=== PATIENT | female | born 1945 | race Caucasian/White ===

== ENCOUNTER 2023-08-12 18:09 | Inpatient (IN) | payer MEDICARE, OTHER, SELFPAY ==
[2023-08-12 15:32] VITALS: BP 145/101
[2023-08-12 15:55] LABS: % Basophils 1.8 % (0-2); % Eosinophils 3.7 % (0-6); % Immature Granulocytes 0.5 % (0-0.5); % Lymphocytes 20.8 % (20.5-51.1); % Monocytes 13.9 % (1.7-9.3); % Neutrophils 59.3 % (42.2-75.2); Absolute Basophils 0.1 10^3/uL (0-0.2); Absolute Eosinophils 0.1 10^3/uL (0-0.7); Absolute Lymphocytes 0.8 10^3/uL (1.2-3.4); Absolute Monocytes 0.5 10^3/uL (0.1-0.6); Absolute Neutrophils 2.3 10^3/uL (1.4-6.5); Hematocrit 37.1 % (37.0-47.0); Hemoglobin 12.6 g/dL (12.0-16.0); Mean Corpuscular Hgb 30.8 pg (27.0-31.0); Mean Corpuscular Volume 90.7 fL (81.0-99.0); Mean Platelet Volume 10.9 fL (7.4-10.4); Nucleated Red Blood Cells % 0 %; Platelet Count 185 10^3/uL (130-400); Red Blood Cell Count 4.09 10^6/uL (4.20-5.40); Red Cell Dist. Width 16.7 % (11.5-14.5); White Blood Cell Count 3.8 10^3/uL (4.8-10.8)
[2023-08-12 16:15] LABS: ALT (SGPT) 30 U/L (0-35); AST (SGOT) 63 U/L (14-36); Alkaline Phosphatase 179 U/L (38-126); Blood Urea Nitrogen 72 mg/dl (7-17); Calcium 9.5 mg/dl (8.4-10.2); Carbon Dioxide 22 mmol/L (22-30); Chloride 95 mmol/L (98-107); Glucose 139 mg/dl (70-99); Magnesium 2.5 mg/dl (1.6-2.3); Potassium 4.6 mmol/L (3.5-5.1); Sodium 133 mmol/L (135-145); Total Bilirubin 2.1 mg/dl (0.2-1.3); Total Protein 7.1 g/dl (6.3-8.2); eGFR 21.09
[2023-08-12 16:18] LABS: NT-proBNP 1470 pg/ml; Troponin I 0.021 ng/ml
--- NOTE | 2023-08-12 16:34 | ED.GENMED ---
History of Present Illness
General
Chief Complaint: Swelling
Source: patient
Exam Limitations: none
Time Seen by Provider: 08/12/23 15:47
Nursing documentation reviewed up to this point in time: agreed with
Travel History
Have you had any contact with someone who has COVID-19?: Unable to Answer
Do you have any symptoms of coronavirus? Fever > 100 degrees, chills, cough, shortness of breath, sore throat, loss of taste or smell, muscle aches, or headache?: No
History of Present Illness
History of Present Illness:
Patient with history of chronic renal insufficiency, atrial fibrillation on Coumadin and congestive heart failure on torsemide, presents to ED secondary to increased swelling in her arms and legs, along with shortness of breath with exertion.
Denies fever or chills. Denies chest pain. Denies leg pain. Denies back pain. Denies nausea, vomiting, or diarrhea. Of note, patient states that she has gained approximately 15 to 20 pounds of weight recently, partially secondary to her diet,
provided by retirement.
Past History
Past History
ED Past Medical History: Arrthythmia (afib), CAD, CHF, HTN, Hypercholesterolemia, NIDDM, Valvular disease and Other (Pneumonia, out of hospital cardiac arrest, ventricular fibrillation, PVCs, permanent atrial fibrillation, GIB)
ED Past Surgical History: Cardiac and Cholecystectomy
Social History
Tobacco: Non-smoker
Alcohol: None
Drug: None
Personal:
Living: with family
Employment: Retired
Family History
Family History: Other (Noncontributory)
Review of Systems
Review of Systems
Allergies reviewed?: Yes
All Other Systems: ROS reviewed and negative except as documented in HPI and ROS
Constitutional: Reports no symptoms
EENT: Reports no symptoms
Respiratory: Reports trouble breathing; Denies cough
Cardiac: Denies chest pain
ABD/GI: Reports no symptoms
: Reports no symptoms
Musculoskeletal: Reports edema
Skin: Reports no symptoms
Neurological: Reports no symptoms
Phy Exam
Physical Exam
Physical Exam:
Physical Exam
General: mild distress, not acutely ill. afebrile
Head: nc/at. eomi
Neck: supple. normal range of motion
Heart: s1/s2 regular rate and rhythm, no murmur. equal radial pulses.
Lungs: mild respiratory distress. crackles bilaterally
Abdomen: normal bowel sounds. not tender.
Neuro: alert and oriented. no focal neurological deficits
Skin: no rash
Psychiatric: well kept. interactive and cooperative
Extremities: b/l LE/UE edema. no calf tenderness.
Scores
Heart Failure Risk
Heart Failure Risk Score: Yes
History of Stroke or TIA: No
History of intubation for respiratory distress: No
Heart rate on ED arrival >/= 110: No
SaO2 <90% on arrival on room air: No
HR >/=110 during 3min walk test (or too ill to perform test): No
ECG has acute ischemic changes: No
Urea >/=12mmol/L (BUN 33.6mg/dL): Yes
Serum CO2>/=35mmol/L: No
Troponin I or T elevated to [place] Level (0.4mg/dL): No
NT-proBNP >/=5,000ng/L (5,000pg/ml): No
HF Risk Score: 1
Admission Status: MEDIUM RISK 5.1% Consider observation or discharge to home with homecare & f/u visit to PCP/[facility], or SNF for treatment
Course
Orders/Labs/Results
Orders:
Orders
08/12/23 15:30
EKG [Electrocardiogram (*1)] Urgent
Reason for Study: Chest Pain
EKG- Treatment ONCE
08/12/23 15:45
Complete Blood Count/With Diff Urgent
Comprehensive Metabolic Panel Urgent
Magnesium Urgent
Comment: ADD-ON
NT-proBNP Urgent
Troponin I Urgent
Uric Acid Urgent
Comment: ADD ON
08/12/23 15:48
CR Chest - 2 Views Urgent
Comment:
Reason For Exam: fluid overload
08/12/23 15:50
Add On- LAB Urgent
Tests Added?: magnesium
08/12/23 16:13
PTT Urgent
Prothrombin Time Urgent
08/12/23 16:28
Furosemide [Lasix] 40 mg IV NOW STA
08/12/23 17:20
Admit/Transfer Patient As Directed
Co-Sign Provider:
Level of Care: Inpatient admission
Assign to:: Telemetry
Physician / Group: angelia
Diagnosis: CHF
Reason for Telemetry: Subacute Heart Failure
Date to Stop Telemetry: 08/14/23
Time to Stop Telemetry: 11:00
Reason for Hospitalization: CHF
Expected length of stay greater than two midnights?: Yes
ELOS- Estimated Length of Stay in days: 3
I certify the patient meets the requirements for IP care: Yes
08/12/23 17:22
Code Status As Directed
Resuscitation Status: Limited DNR
Limited DNR: -No intubation
08/12/23 17:42
Add On- LAB Routine
Tests Added?: uric acid
08/12/23 21:58
Acetaminophen [Tylenol] 650 mg PO Q4HPRN PRN
Atorvastatin [Lipitor] 40 mg PO QPM
Dextrose 50%-Water [Dextrose 50% Syringe] 12.5 grams IV [id number] PRN
Digoxin [Lanoxin] 125 mcg PO SUTUFR
Glucagon [GlucaGen] 1 mg IM PRN PRN
Metoprolol Xl [Toprol Xl] 100 mg PO BID
Potassium Chloride [KCl] 20 meq PO BID
Zolpidem Tartrate [Ambien] 5 mg PO HSPRN PRN
08/12/23 21:58
CARDIOLOGY CONSULT Routine
Consulting Provider: Varun Duff
Was physician already notified: Yes
HF DIETARY CONSULT Routine
HF EDUCATOR CONSULT Routine
Comment:
Activity As Directed
Activity Level: As Tolerated
Bedside Glucose Monitoring As Directed
Frequency: AC&HS
Comment: Change to q6h if pt on TPN, tube feeding or not eating
Intake/ Output As Directed
Frequency: Per unit guidelines
Patient Education As Directed
Type: CHF folder
Comment: give on admission. Document in Interdisciplinary Education record
Sleep Apnea Assessment by RN As Directed
Comment:
Physician Instructions:
Vital Signs As Directed
Frequency: Other
Additional Instructions:: Q12 or per unit guidelines if more frequent.
Weight As Directed
Frequency: Daily
Type of Scale: Standing Scale
Comment: Daily morning weight. If unable to stand, use balanced bed scale.
Weight As Directed
Frequency: Once
Type of Scale: Standing Scale
Comment: Upon Admission. If unable to stand, use balanced bed scale.
Pulse Ox/cont/shift [RESP] Routine
Quantity: 1
Special Instructions: Daily pulse oximetry at rest. If greater than 92% at rest also obtain pulse oximetry
while ambulating as tolerated.
Ot Eval And Treat Routine
Pt Eval And Treat Routine
Activity Level: As Tolerated
08/12/23 22:00
Troponin I Q6H
Comment: at admission & every 6 hours x 2 (3 total), ECG to be done with each level
08/13/23 04:00
Troponin I Q6H
Comment: at admission & every 6 hours x 2 (3 total), ECG to be done with each level
08/13/23 Breakfast
1800 calorie (15 carb) Diabetic
At Your Request: Full Participation
Fluid Restriction: 1200 mL/day (40 oz)
Basic Metabolic Panel IN AM
Cardiovascular Evaluation IN AM
Complete Blood Count/No Diff IN AM
Digoxin IN AM
Glycohemoglobin (HgbA1c) IN AM
Kfgcv-[id number] IN AM
Magnesium IN AM
Prothrombin Time IN AM
TSH Reflex To Free T4 IN AM
08/13/23 07:30
Insulin Aspart Corrective Low [Novolog Flexpen-Low Resistance] See Protocol SC AC
Repaglinide [Prandin] 0.5 mg PO AC
08/13/23 08:00
Furosemide [Lasix] 60 mg IV BID AT 0800,1600
Spironolactone [Aldactone] 12.5 mg PO DAILY
diltiazem HCl 240 mg PO DAILY
08/13/23 17:00
Warfarin [Coumadin] 2.5 mg PO SUMOTUWEFRSA@1700
08/14/23 06:00
Basic Metabolic Panel IN AM
Complete Blood Count/No Diff IN AM
Prothrombin Time IN AM
08/14/23 11:00
DC Protocol for Telemetry ONCE
08/15/23 06:00
Basic Metabolic Panel IN AM
Complete Blood Count/No Diff IN AM
Prothrombin Time IN AM
08/16/23 06:00
Complete Blood Count/No Diff IN AM
Abnormal Lab Results
08/12/23 08/12/23
15:45 16:13
WBC 3.8 L 10^3/uL
(4.8-10.8)
RBC 4.09 L 10^6/uL
(4.20-5.40)
RDW 16.7 H %
(11.5-14.5)
MPV 10.9 H fL
(7.4-10.4)
Absolute Lymphs (auto) 0.8 L 10^3/uL
(1.2-3.4)
Monocytes % 13.9 H %
(1.7-9.3)
PT 27.4 H Sec
(11.4-14.6)
APTT 49.6 H Sec
(23.4-35.0)
Sodium 133 L mmol/L
(135-145)
Chloride 95 L mmol/L
(98-107)
BUN 72 H mg/dl
(7-17)
Creatinine 2.3 H mg/dL
(0.6-1.0)
Glucose 139 H mg/dl
(70-99)
Uric Acid 14.2 H mg/dl
(2.5-6.2)
Magnesium 2.5 H mg/dl
(1.6-2.3)
Total Bilirubin 2.1 H mg/dl
(0.2-1.3)
AST 63 H U/L
(14-36)
Alkaline Phosphatase 179 H U/L
(38-126)
08/12/23 15:45
08/12/23 15:45
Vital Signs
Initial and Last Documented VS:
Initial Vital Signs
Pulse Resp BP Pulse Ox
52 17 145/101 96
08/12/23 15:32 08/12/23 15:32 08/12/23 15:32 08/12/23 15:32
Last Documented Vital Signs
Pulse Resp BP Pulse Ox
54 20 116/87 99
08/12/23 20:30 08/12/23 21:36 08/12/23 20:30 08/12/23 21:36
MDM/Problems Addressed
MDM/Problems Addressed:
History and exam concerning for moderate fluid overload, likely multifactorial. Patient will be admitted for IV diuresis. In addition, acute renal failure on chronic renal insufficiency noted, which makes patient's treatment more complicated.
INR therapeutic
*EKG
Interpreted by ED Provider?: Yes
EKG Intrepretation Date: 08/12/23
Heart Rate: 50
Rate: normal
Rhythm: ventricular paced
*Critical Care Note
Total Time (30-74mins, 75-104mins- exclusive of procedures): Not Applicable
ED Attending Note
-
Portions of this chart may have been created with voice recognition software.� Occasional wrong word or��sound alike� substitutions may have occurred due to the inherent limitations of voice recognition software.
Discharge Plan
Departure
Patient Disposition: Admit
Date of Disposition: 08/12/23
Time of Disposition: 16:45
Admit to: Telemetry
Presentation/result/management discussed w/ accepting MD/DO: Hospitalist
Discharge Problem:
Fluid overload, Renal failure (ARF), acute on chronic
Interventions
Interventions:
*Risk Screen - Suicide Last Done: 08/12/23 21:52
*General Assessment Last Done: 08/12/23 15:55
*Neglect/Abuse Screening Last Done: 08/12/23 15:55
ED- Fall Risk Assessment Last Done: 08/12/23 15:55
*ED COVID-19 Vaccine History Last Done: 08/12/23 21:49
*Nursing Disposition Last Done: 08/12/23 21:20
ED- Cardiac Assessment Last Done: 08/12/23 15:55
ED- Pulmonary Assessment Last Done: 08/12/23 15:55
ED-Skin Assessment Last Done: 08/12/23 15:55
Discharge Date and Time
Discharge Date/Time: 08/12/23 21:20
[2023-08-12 16:42] LABS: PT 27.4 Sec (11.4-14.6)
[2023-08-12 16:43] LABS: APTT 49.6 Sec (23.4-35.0)
--- NOTE | 2023-08-12 16:49 | HPS.HSE ---
Addendum entered and electronically signed by Christo Madrigal MD 08/12/23 17:56:
77-year-old female with history of CHF was treated at [facility] for CHF and was discharged to a local rehab. Patient still had a lot of edema which got worse which prompted her to come to [facility]. Patient has shortness
of breath and feels really tired and puffy all over. Clothes not fitting her anymore. Denies any chest pain
On examination
Patient is appearing tired arousable can have a conversation in full sentences
Appears to have marked anasarca
Cardiovascular system S1-S2 appreciated systolic murmur at right heart border
Abdomen soft and nontender
4+ pitting edema bilateral upper extremities and lower extremities
Gouty tophi on the index finger on the right
Chest x-ray reviewed by me-pulmonary congestion right pleural effusion
# Acute on chronic heart failure with PEF
Also suspect right heart failure
Patient denies sleep apnea but-may need a sleep study given findings on the echo.
Admitted telemetry
Diuresis Lasix 60 mg IV twice daily as long as blood pressure can tolerate.
Follow creatinine closely with CKD
Diuresis may be difficult with pulmonary hypertension
Check troponins rule out ischemia
Cardiology to evaluate
Intake output charting and daily weights I would hold Aldactone
And metolazone for now.
Continue metoprolol
Not on ROSALIND inhibitor likely secondary to elevated creatinine.
Likely not on SGLT2 inhibitors because of her creatinine fluctuation. To consider this eventually for goal-directed therapy.
Echo 11/23/2022-normal LV systolic function. EF 57%. Mild concentric LVH. Dilated and hypokinetic RV with evidence of pressure and volume overload. Normal functioning [place] mechanical mitral valve. Normal functioning TAVR. Severe TR.
Estimated pulmonary artery pressure 55 mmHg.
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
TAVR was on October 05, 2022.
Severe TR noted
# History of V-fib cardiac arrest requiring ICD placement
# Coronary artery disease with CABG in 2008
# Permanent atrial fibrillation-continue Cardizem and metoprolol for rate control
She is also on digoxin-check levels with worsening renal function.
On Coumadin for anticoagulation
# Acute on CKD stage III
Follow creatinine with diuresis
Check urine analysis and urine sodium
If patient continues to be volume overloaded and creatinine worsening may need nephrology evaluation
# Chronic right bundle branch block
# Hypertension
Follow blood pressure on metoprolol
May drop with diuresis given pulmonary hypertension
# Hyperlipidemia-continue statin
# Suspected gout
Check uric acid level
# Diabetes type 2 Accu-Cheks and sliding scale coverage
Patient on Prandin
# Elevated LFTs likely secondary to hepatic congestion.
Follow with diuresis
# Mild hyponatremia-from fluid overload
# History of subdural hemorrhage
# Obesity
# DNR per D/W patient and daughters at bed side
D/W Daughters at bed side
Reviewed plan of care
time spent 76 min
Original Note:
Family Physician
-
Family Physician: Rafael Garcia
Chief Complaint
-
b/l LE edema
weight gain
History of Present Illness
77 year old with past medical history of chronic renal insufficiency, atrial fibrillation on Coumadin and congestive heart failure on torsemide presented to us with bilateral upper extremity swelling since Sunday. The swelling has progressively
gotten worse . She was also noted to have worsening swelling of bilateral lower extremities. She was noted to have weight gain of 15 pounds in 2 week .patient stated short of breath with activity.patient denied chest pain .patient denied fever or
chills, congestion, cough .patient denied headache, dizziness, syncopal episode .patient denied abdominal pain, nausea, vomiting, diarrhea. Patient denied dysuria hematuria.
Patient was admitted to [facility] due to CHF and was discharged on last Sunday.
Medical History
Past Medical History
Past Medical History: Reports Other
Additional Past Medical History:
afib), CAD, CHF, HTN, Hypercholesterolemia, NIDDM, Valvular disease,Pneumonia, out of hospital cardiac arrest, ventricular fibrillation, PVCs, permanent atrial fibrillation, GIB
Past Surgical History: Reports Other
Additional Past Surgical History:
Cholecystectomy
Appendectomy
Coronary artery bypass graft
TAVR
Mitral and aortic valve repair
Social History
Tobacco: Non-smoker
Alcohol: None
Drug: None
Personal: Single
Living: Other (Rehab)
Family History
Family History: Not pertinent
Allergies / Home Medications
Allergies reflects when Allergies were last updated in [employer].
Home Medications with original date entered in [employer]
Allergy/Medication List:
Allergies
Allergy/AdvReac Type Severity Reaction Status Date / Time
No Known Allergies Allergy Verified 12/12/22 12:40
Home Medications
atorvastatin 40 mg tablet 40 mg PO QPM High cholesterol 09/22/19
repaglinide 0.5 mg tablet 0.5 mg PO AC Diabetes 09/22/19
diltiazem HCl 240 mg tablet,extended release 24 hr 240 mg PO DAILY Arrhythmia 08/25/22
warfarin 2.5 mg tablet 2.5 mg PO SUMOTUWEFRSA@1700 Blood clot prevention/tx 08/25/22
zolpidem 10 mg tablet (Ambien) 5 mg PO HSPRN PRN sleep 08/25/22
acetaminophen 325 mg tablet 650 mg PO Q4HPRN PRN mild pain/fever >101F 11/22/22
levalbuterol HCl 0.63 mg/3 mL solution for nebulization 0.63 mg inhalation R Q6HPRN PRN sob/wheezing 11/22/22
torsemide 20 mg tablet 40 mg PO DAILY Fluid retention/Swelling 11/22/22
metoprolol succinate 100 mg tablet,extended release 24 hr 100 mg PO BID 30 days #60 tabs 12/17/22
spironolactone 25 mg tablet 12.5 mg PO DAILY 30 days #15 tabs 12/17/22
albuterol sulfate 90 mcg/actuation aerosol inhaler (ProAir HFA) 2 puff inhalation R Q6HPRN PRN sob 08/12/23
bisacodyl 10 mg rectal suppository (Dulcolax (bisacodyl)) 10 mg [place] DAILYPRN PRN if no bm aftr mom 08/12/23
digoxin 125 mcg (0.125 mg) tablet 125 mcg PO SUTUFR 08/12/23
magnesium hydroxide 400 mg/5 mL oral suspension (Milk of Magnesia) 2,400 mg PO [id number] PRN if no bm by 3rd day 08/12/23
metolazone 5 mg tablet 5 mg PO DAILYPRN PRN 3 lbweight gain 08/12/23
ondansetron HCl 8 mg tablet 8 mg PO [id number] PRN nausea 08/12/23
potassium chloride 20 mEq tablet,extended release(part/cryst) 20 meq PO BID 08/12/23
sodium phosphates 19 gram-7 gram/118 mL enema (Fleet Enema) 118 ml [place] DAILYPRN PRN if no bm aftr dulcolax 08/12/23
Review of Systems
-
EENT: Reports No Symptoms
Respiratory: Reports Cough and Trouble Breathing
Cardiac: Reports No Symptoms
Abdomen/GI: Reports No Symptoms
: Reports No Symptoms
Musculoskeletal: Reports Edema and Other (Bilateral lower extremities and upper extremities pitting edema)
Skin: Reports No Symptoms
Neurological: Reports No Symptoms
Endocrine: Reports No Symptoms
Hematologic/Lymphatic: Reports No Symptoms
Psych: Reports No Symptoms
Physical Exam
Vital Signs
Vital Signs
Pulse Resp BP Pulse Ox
52 17 145/101 96
08/12/23 15:32 08/12/23 15:32 08/12/23 15:32 08/12/23 15:32
Physical Exam
General: Well Developed, Well Nourished and No Apparent Distress
HEENT: NormoCephalic, Moist mucous membranes and Atraumatic
Respiratory: Clear
Cardiac: S1/S2 and Regular Rhythm; No Murmur or Rub
GI: Soft, Non Tender, Non Distended and Normal Bowel Sounds; No Organomegaly
Rectal: Deferred by Provider
Musculoskeletal: No Clubbing, No Cyanosis and Other (Bilateral lower extremities, upper extremities pitting edema)
Skin: No Rash
Neuro: AO x 3 and Nonfocal/grossly intact
Psych: Calm
Laboratory Results
-
08/12/23 15:45
08/12/23 15:45
Laboratory Results
PT 27.4 Sec (11.4-14.6) H 08/12/23 16:13
INR 2.50 08/12/23 16:13
APTT 49.6 Sec (23.4-35.0) H 08/12/23 16:13
Total Bilirubin 2.1 mg/dl (0.2-1.3) H 08/12/23 15:45
AST 63 U/L (14-36) H 08/12/23 15:45
ALT 30 U/L (0-35) 08/12/23 15:45
Alkaline Phosphatase 179 U/L (38-126) H 08/12/23 15:45
Troponin I 0.021 ng/ml 08/12/23 15:45
Data Reviewed
-
Diagnostic Radiology: Report Reviewed by me
Lab Data: Labs Reviewed by me
Impression/Plan
-
#acute on chronic congestive heart failure
-BNP 1470
-chest x ray pending
-EKG with V paced rhythm
-Lasix, spironolactone continued
-Metolazone held
-Strict RICHARD, daily weight
-Metoprolol 100 mg twice a day
-ECHO (5/11 with EF of 57%
-Cardiology consult
#acute on chronic kidney failure/hyponatremia likely hypervolemic
-na 133, cr 2.3
-Fluid restriction
-Monitor BMP in a.m.
#Aortic stenosis status post recent TAVR in October 05, 2022
-History of Mechanical mitral valve replacement
-Continue Coumadin
-INR 2.50
-PT/INR daily.
#History of V-fib cardiac arrest requiring ICD placement
#History of right bundle branch block
#Moderate to severe tricuspid regurgitation
#CAD status post CABG in 2008
#Permanent atrial fibrillation
-Continue Cardizem
-Continue Coumadin
-daily INR
-Digoxin continued
#Essential hypertension
-Continue losartan, metoprolol
#Hyperlipidemia
-Continue statin
#Type 2 diabetes
-Continue repaglinide
-SSI/ AccuCheck
#Obesity due to excess calories
#History of subdural hemorrhage
dvt ppx Coumadin
CODE STATUS
-CPR but no intubation
[2023-08-12 18:24] LABS: Uric Acid 14.2 mg/dl (2.5-6.2)
[2023-08-12] MEDS: LASIX 40 MG IV (18:46)
[2023-08-12 19:30] VITALS: BP 117/85
[2023-08-12 20:30] VITALS: BP 116/87
[2023-08-12 21:35] VITALS: BP 121/92
[2023-08-12 21:38] VITALS: BMI 34.2
[2023-08-12 21:51] VITALS: BMI 33.9
[2023-08-12 22:58] LABS: Glucose - Point of Care 85 mg/dl (70-99)
[2023-08-12] MEDS: LANOXIN PO (23:22)
[2023-08-12 23:52] VITALS: BP 96/83
[2023-08-12] MEDS: LIPITOR 40 MG PO (23:58)
[2023-08-12] MEDS: TOPROL XL PO (23:58)
[2023-08-12] MEDS: DESENEX/MITRAZOL/ZEASORB 1 APPLIC TOPICAL (23:59)
[2023-08-12] MEDS: KCL 20 MEQ PO (23:59)
[2023-08-13] VITALS (9 sets, daily range): BP systolic 114–146; BP diastolic 61–76; PULSE 53–58; O2SAT 97; BMI 33.9
[2023-08-13 00:25] LABS: Troponin I 0.021 ng/ml
--- NOTE | 2023-08-13 01:42 | PTCARENOTE ---
Rec'd pt. from ED into room 2252 AAOx3, V-paced on the monitor (rate 40's-50's). Pt. able to ambulate with assist x 1 & RW, pt. generally weak. No complaints of CP/discomfort. Some DOBBINS assessed with ambulation, pulse ox 95-96% on RA, anterior
wheeze present. Pt. OOB to BSC frequently, voiding clear yellow urine without difficulty. Unable to obtain oral or axillary temp.., rectal obtained with results of 94.6. House FILM RECORDIST Katya notified, order for Yocasta glover obtained and placed. Pt.
tearful and voiced that she's sick of being sick, that she just wants to go home. Reassurance given. Pt. sleeping.
[2023-08-13 04:24] LABS: Hematocrit 34.2 % (37.0-47.0); Hemoglobin 11.8 g/dL (12.0-16.0); Mean Corp Hgb Conc. 34.5 g/dL (33.0-37.0); Mean Corpuscular Hgb 30.5 pg (27.0-31.0); Mean Corpuscular Volume 88.4 fL (81.0-99.0); Mean Platelet Volume 10.7 fL (7.4-10.4); Platelet Count 157 10^3/uL (130-400); Red Blood Cell Count 3.87 10^6/uL (4.20-5.40); Red Cell Dist. Width 16.6 % (11.5-14.5); White Blood Cell Count 4.1 10^3/uL (4.8-10.8)
[2023-08-13 04:35] LABS: INR 2.64; PT 28.6 Sec (11.4-14.6)
[2023-08-13 04:50] LABS: ALT (SGPT) 27 U/L (0-35); AST (SGOT) 60 U/L (14-36); Albumin 3.6 g/dl (3.5-5.0); Alkaline Phosphatase 189 U/L (38-126); Blood Urea Nitrogen 69 mg/dl (7-17); Calcium 9.1 mg/dl (8.4-10.2); Carbon Dioxide 22 mmol/L (22-30); Chloride 100 mmol/L (98-107); Digoxin 0.8 ng/ml (0.8-2.0); Direct Bilirubin 0.7 mg/dl (0.0-0.4); Estimated Creatinine Clearance 22 ml/min; Glucose 85 mg/dl (70-99); HDL Cholesterol 27 mg/dl; LDL Cholesterol, Calculated 56 mg/dl; Magnesium 2.4 mg/dl (1.6-2.3); Potassium 4.4 mmol/L (3.5-5.1); Sodium 130 mmol/L (135-145); Total Bilirubin 2.1 mg/dl (0.2-1.3); Total Cholesterol 98 mg/dl (50-199); Total Protein 6.5 g/dl (6.3-8.2); Triglyceride 78 mg/dl (10-149); Very Low Density Lipoprotein 15 mg/dl (0-30); eGFR 22.25
[2023-08-13 05:17] LABS: TSH Reflex To Free T4 9.22 uIU/ml (0.47-4.68)
[2023-08-13 05:46] LABS: Free T4 1.46 ng/dl (0.78-2.19)
--- NOTE | 2023-08-13 06:12 | PTCARENOTE ---
Yocasta glover removed at 0253, axillary temp 97.3. Rechecked an hour later orally, 97.6.
[2023-08-13 07:38] LABS: Glucose - Point of Care 147 mg/dl (70-99)
[2023-08-13] MEDS: NOVOLOG FLEXPEN-LOW RESISTANCE SC ×2 (08:23→17:17)
[2023-08-13] MEDS: LASIX 60 MG IV ×2 (08:24→15:49)
[2023-08-13] MEDS: KCL 20 MEQ PO ×2 (08:25→19:31)
[2023-08-13] MEDS: PRANDIN 0.5 MG PO ×3 (08:26→17:17)
[2023-08-13] MEDS: ALDACTONE 12.5 MG PO (08:26)
[2023-08-13] MEDS: TOPROL XL 100 MG PO ×2 (08:26→19:31)
[2023-08-13] MEDS: FLUSH (NSS) 1 FLUSH IV (08:27)
[2023-08-13] MEDS: CARDIZEM CD 240 MG PO (08:27)
[2023-08-13] MEDS: DESENEX/MITRAZOL/ZEASORB 1 APPLIC TOPICAL ×2 (08:28→19:32)
--- NOTE | 2023-08-13 09:44 | CON.CAR ---
Addendum entered and electronically signed by Milton Mcgovern MD 08/13/23 10:42:
77 yo female with PMH of chronic HFPEF, CKD4, permanent A fib, mechanical MVR on coumadin admitted with acute on chronic HFPEF. She has significant edema and weight gain. Exam with irregular rhythm, mechanical valve click, 3+ upper and lower
extremity edema. Cr 2.2.
Continue lasix 60mg IV bid, and trend weight, Cr. May need to increase to 80mg based on response.
Original Note:
Consultation
Consultation Request
Date/Time Consultation Requested: 08/12/23 9p
Date/Time Consultation Performed: 08/13/23 9a
Requesting Provider: KATE Shaver
Performing Provider: KATE Wu for Dr. Mcgovern
Reason for Consultation: acute HFpEF
Medical History
-
Chief Complaint: weight gain, sob, LE edema
History of Present Illness:
Mrs. Pastrana is a 77 yo female with TAVR 09/2022, mechanical MVR 2008, permanent A fib, on chronic Coumadin, VF arrest s/p single chamber MDT ICD (2019), IVCD, CAD s/p CABG 2008, chronic HFpEF, DM, HTN, hyperlipidemia, CKD4, and SDH after fall 2021,
who presents to the ER from assisted living/rehab with weight gain, LE edema and SOB. She was admitted at [facility] 08/03 - 08/08/23 with JOJO, HFpEF though felt to be dry, therefore she received IVF and diuretics were reduced. She
continued to gain weight at rehab, now with anasarca. We are consulted for acute HFpEF in the setting of CKD4 with creatinine 2.2 today. Her dry weight is typically 175-180 lbs, while her weight on admission was 202 lbs! She is responding to IV
Lasix 60mg IV BID as her weight is now down to 196 lbs today.
Allergies / Home Medications
Allergy/AdvReac Type Severity Reaction Status Date / Time
No Known Allergies Allergy Verified 12/12/22 12:40
Medication Instructions Recorded Confirmed Type
atorvastatin 40 mg tablet 40 mg PO QPM High cholesterol 09/22/19 08/12/23 History
repaglinide 0.5 mg tablet 0.5 mg PO AC Diabetes 09/22/19 08/12/23 History
diltiazem HCl 240 mg 240 mg PO DAILY Arrhythmia 08/25/22 08/12/23 History
tablet,extended release 24 hr
warfarin 2.5 mg tablet 2.5 mg PO [id number]@1700 Blood 08/25/22 08/12/23 History
clot prevention/tx
zolpidem 10 mg tablet (Ambien) 5 mg PO HSPRN PRN sleep 08/25/22 08/12/23 History
acetaminophen 325 mg tablet 650 mg PO Q4HPRN PRN mild 11/22/22 08/12/23 History
pain/fever >101F
levalbuterol HCl 0.63 mg/3 mL 0.63 mg inhalation R Q6HPRN PRN 11/22/22 08/12/23 History
solution for nebulization sob/wheezing
torsemide 20 mg tablet 40 mg PO DAILY Fluid 11/22/22 08/12/23 History
retention/Swelling
metoprolol succinate 100 mg 100 mg PO BID 30 days #60 tabs 12/17/22 08/12/23 Rx
tablet,extended release 24 hr
spironolactone 25 mg tablet 12.5 mg PO DAILY 30 days #15 tabs 12/17/22 08/12/23 Rx
albuterol sulfate 90 mcg/actuation 2 puff inhalation R Q6HPRN PRN sob 08/12/23 08/12/23 History
aerosol inhaler (ProAir HFA)
bisacodyl 10 mg rectal suppository 10 mg MI DAILYPRN PRN if no bm 08/12/23 08/12/23 History
(Dulcolax (bisacodyl)) aftr mom
digoxin 125 mcg (0.125 mg) tablet 125 mcg PO SUTUFR Heart Failure 08/12/23 08/12/23 History
magnesium hydroxide 400 mg/5 mL 2,400 mg PO [id number] PRN if no bm 08/12/23 08/12/23 History
oral suspension (Milk of Magnesia) by 3rd day
metolazone 5 mg tablet 5 mg PO DAILYPRN PRN 3 lbweight 08/12/23 08/12/23 History
gain
ondansetron HCl 8 mg tablet 8 mg PO [id number] PRN nausea 08/12/23 08/12/23 History
potassium chloride 20 mEq 20 meq PO BID 08/12/23 08/12/23 History
tablet,extended release(part/cryst)
sodium phosphates 19 gram-7 118 ml MI DAILYPRN PRN if no bm 08/12/23 08/12/23 History
gram/118 mL enema (Fleet Enema) aftr dulcolax
Physical Exam
Vital Signs
Temp Pulse Resp BP Pulse Ox
96.2 F L 52 22 125/68 96
08/13/23 07:31 08/13/23 09:38 08/13/23 07:31 08/13/23 09:38 08/13/23 08:30
Lab Results
08/13/23 04:06
08/13/23 04:06
Troponin I 0.020 ng/ml 08/13/23 04:06
Vko-M-Qozhyegbqni Pept 1470 pg/ml 08/12/23 15:45
Impression / Plan
-
Chronic HFPEF. High risk situation with CKD4 and cardiorenal syndrome. We discussed nephrology consultation: she wishes to defer, but may reconsider if Cr worsens. She takes torsemide 40mg bid with Kcl 20 mEq bid at baseline. And aldactone 12.5mg
daily. She takes metolazone 5mg as needed per HF protocol. Her dry weight may now be between 175-180lbs. She seems to feel worse over 180lb. Check BMP.
h/o TAVR 09/2022 and mechanical MVR 2008. Follow up echo ordered.
Permanent A fib. Continue Toprol XL 100mg bid, diltiazem 240mg daily, digoxin 125 mcg //Sun. She is on coumadin in setting of mechanical MVR.
VF s/p ICD. Stable.
CAD, prior CABG. Stable, no angina. Not on ASA since on coumadin for A fib/mech MVR, and also had SDH in recent past. Continue atorvastatin 40mg daily. Last LDL at goal at 59.
BP is at goal on above regimen.
HFpEF - acute on chronic.
- weight is up to 202 lbs. Dry weight is 175-180 lbs.
- continue IV Lasix 60mg IV BID with close monitoring of renal function.
- high risk situation with CKD4 and cardiorenal syndrome.
- check echo today.
- I&Os, fluid restrictions, daily weights.
CKD4 - acute on chronic.
- cardiorenal syndrome and need for diuresis.
- monitor renal function closely.
- has declined nephrology evaluation in the past, may consider consult this admission.
TAVR - 09/2022.
- stable on echo prior.
- check echo today.
MVR - mechanical in 2008.
- stable.
- check echo today,
- chronic Coumadin, therapeutic INR today, monitor.
Afib - permanent.
- asymptomatic.
- V paced on tele and EKG.
CAD - s/p CABG.
- stable w/o angina.
- no ASA due to chronic Coumadin and had prior SDH.
HLD - stable on Lipitor, continue.
- LDL 59.
ICD - Medtronic single chamber device.
- stable with normal function.
- no discharges.
- continue f/u in device clinic.
Data Reviewed
-
EKG: Tracing Personally Visualized and interpreted (V paced with PVCs 52 bpm)
Radiology: Report Reviewed by me (CXR: New tiny right pleural effusion versus mild right lower lobe atelectasis. )
Medical Tests (Nuc Med, Echo etc): Report Reviewed by me (Echo (11/06/22): EF 55-60%, TAVR (06/06, no AR), [facility] MVR (mean 4, no MR), enlarged RV with reduced fx, severe TR, PASP 45)
Labs: Labs Reviewed by me
Old Records: Reviewed
[2023-08-13 09:54] LABS: Glycohemoglobin (HgbA1c) 7.5 % (4.0-5.6)
--- NOTE | 2023-08-13 10:15 | PTCARENOTE ---
received patient from previous shift. patient awake, patient ambulated to [facility] with walker and assist of 2. patient has generalized anasarca. monitor shows V paced, VSS. lung grissom have exp. wheezes, on RA o2 sat 96%. patient sitting up in a chair
waiting for breakfast.
--- NOTE | 2023-08-13 10:48 | CM ---
Reviewed chart. Met with Mrs. Pastrana to review discharge plans. She states prior to admission she was at [facility] for short term rehab. She states she has been there a few days. She states prior to admission she resides with her
spouse and handicapped son in a three story home with five steps to enter. She states prior to admission she ambulates with a walker. She states she has a stair glide to get up to the second floor where her bedroom/full bathroom. She has two
walkers and a stair glide at home. She states she has had [facility] int he past. She would like to to be able to go directly home with [facility]. Await physical and occupational evaluations Medical work-up in progress. The
discharge plan is to return home with her spouse and son with [facility] versus returning to SNF/Rehab. when medically stable.
--- NOTE | 2023-08-13 12:15 | W.PN.HOSP.TC ---
Today's Communication/Plan
-
Diuresis
Add allopurinol
Assessment / Plan
Assessment / Plan
77-year-old female with history of CHF was treated at [facility] for CHF and was discharged to a local rehab.� Patient still had a lot of edema which got worse which prompted her to come to [facility].� Patient has shortness
of breath and feels really tired and puffy all over.� Clothes not fitting her anymore.� Denies any chest pain
On examination
AA and oriented
Cardiovascular system S1-S2 irregular, systolic murmur at right heart border
Abdomen soft and nontender
4+ pitting edema bilateral upper extremities and lower extremities
Gouty tophi on the index finger on the right
# Acute on chronic heart failure with PEF
Also suspect right heart failure
Patient denies sleep apnea but-may need a sleep study given findings on the echo.
Admitted telemetry
Diuresis Lasix 60 mg IV twice daily as long as blood pressure can tolerate.
Follow creatinine closely with CKD
Diuresis may be difficult with pulmonary hypertension
Troponin negative for ischemia
Cardiology eval appreciated.
Intake output charting and daily weights I would hold Aldactone
Hold metolazone for now.
Continue metoprolol
Not on ROSALIND inhibitor likely secondary to elevated creatinine.
Likely not on SGLT2 inhibitors because of her creatinine fluctuation.� To consider this eventually for goal-directed therapy.
Echo 11/23/2022-normal LV systolic function.� EF 57%.� Mild concentric LVH.� Dilated and hypokinetic RV with evidence of pressure and volume overload.� Normal functioning [place]en mechanical mitral valve.� Normal functioning TAVR.� Severe TR.�
Estimated pulmonary artery pressure 55 mmHg.
Cards ordering repeat
# Elevated uric acid level with gouty Tophi-start allopurinol. Discussed with the patient.
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
TAVR was on October 05, 2022.
Severe TR noted
# History of V-fib cardiac arrest requiring ICD placement
# Coronary artery disease with CABG in 2008
# Permanent atrial fibrillation-continue Cardizem and metoprolol for rate control
She is also on digoxin- digoxin level within normal range
On Coumadin for anticoagulation
# Acute on CKD stage III
Follow creatinine with diuresis
Check urine analysis and urine sodium
If patient continues to be volume overloaded and creatinine worsening may need nephrology evaluation
# Chronic right bundle branch block
# Hypertension
Follow blood pressure on metoprolol
May drop with diuresis given pulmonary hypertension
# Hyperlipidemia-continue statin
# Diabetes type 2 Accu-Cheks and sliding scale coverage
Patient on Prandin
Hemoglobin A1c 7.5
# Elevated LFTs likely secondary to hepatic congestion.
Follow with diuresis
# Mild hyponatremia-from fluid overload hypervolemic in nature
Will improve with diuresis
# History of subdural hemorrhage
#Elevated TSH with normal T4. Needs repeat
# Obesity
# DNR per D/W patient and daughters at bed side
D/W nursing at bed side
Anticipated Discharge: > 48 hours
Subjective/Interval History
-
Date of Service: August 13, 2023
Objective Data
-
Labs:
Laboratory Results
08/13/23
04:06
WBC 4.1 L
Hgb 11.8 L
Hct 34.2 L
Plt Count 157
PT 28.6 H
INR 2.64
Sodium 130 L
Potassium 4.4
Chloride 100
Carbon Dioxide 22
BUN 69 H
Creatinine 2.2 H
Glucose 85
Calcium 9.1
Total Bilirubin 2.1 H
AST 60 H
ALT 27
Alkaline Phosphatase 189 H
Vital Signs:
Vital Signs
Temp Pulse Resp BP Pulse Ox
96.1 F L 52 22 125/68 98
08/13/23 11:47 08/13/23 09:38 08/13/23 11:47 08/13/23 09:38 08/13/23 11:47
I&O
08/12/23 08/13/23 08/14/23
06:59 06:59 06:59
Intake Total 240 / 240
Output Total 825 / 825 700 / 700
Balance -585 / -585 -700 / -700
[2023-08-13] MEDS: ZYLOPRIM 100 MG PO (12:23)
[2023-08-13 12:35] LABS: Glucose - Point of Care 170 mg/dl (70-99)
[2023-08-13 13:27] LABS: Total Thyroxine 7.47 ug/dl (5.5-11.0)
[2023-08-13 14:02] LABS: Urine Albumin Negative (Neg - Trace); Urine Bilirubin Negative (Negative); Urine Character Clear (Clear); Urine Color Yellow; Urine Glucose Negative (Negative); Urine Ketone Negative (Negative); Urine Leukocyte Negative (Negative); Urine Nitrite Negative (Negative); Urine Occult Blood Negative (Negative); Urine Urobilinogen Negative (Neg - 1+)
--- NOTE | 2023-08-13 14:05 | PTCARENOTE ---
patient sat up all morning in chair, neida. well, patient has audible wheezing. ambulated to BR with walker and assist x 1. patient voided and Urine obtained and sent to lab as ordered. also patient had formed BM. patient ambulated back to bed, bilat.
gimla wraps applied as ordered.
[2023-08-13] MEDS: NOVOLOG FLEXPEN-LOW RESISTANCE 1 UNITS SC (14:39)
[2023-08-13 15:14] LABS: Urine Sodium 68 mmol/L (30-90)
[2023-08-13 17:17] LABS: Glucose - Point of Care 94 mg/dl (70-99)
[2023-08-13] MEDS: COUMADIN 2.5 MG PO (17:20)
[2023-08-13] MEDS: LIPITOR 40 MG PO (17:21)
--- NOTE | 2023-08-13 18:21 | PTCARENOTE ---
patient has been OOB for each meal, assist of 1 and walker, neida. well. anasarca, skin oozing on left arm. patient diuresing from IV Lasix.
[2023-08-13 22:01] LABS: Glucose - Point of Care 135 mg/dl (70-99)
--- NOTE | 2023-08-13 23:55 | PTCARENOTE ---
Received pt at handoff. AOx3. Assessment noted as documented. VSS. Tele- V-paced. Sating at 98% on room air w/ exp wheeze. Pt ambulatory to bedside commode w/ rolling walker and x1 assist. Voiding approp. Pt currently resting in bed; call valdes w/in
reach.
[2023-08-14] VITALS (7 sets, daily range): BP systolic 111–128; BP diastolic 51–81; BMI 33.5
[2023-08-14 03:36] LABS: Hematocrit 34.7 % (37.0-47.0); Mean Corp Hgb Conc. 34.6 g/dL (33.0-37.0); Mean Corpuscular Hgb 30.6 pg (27.0-31.0); Mean Corpuscular Volume 88.5 fL (81.0-99.0); Platelet Count 175 10^3/uL (130-400); Red Blood Cell Count 3.92 10^6/uL (4.20-5.40); Red Cell Dist. Width 16.7 % (11.5-14.5); White Blood Cell Count 4.1 10^3/uL (4.8-10.8)
[2023-08-14 03:45] LABS: INR 2.51; PT 27.5 Sec (11.4-14.6)
[2023-08-14 03:57] LABS: Blood Urea Nitrogen 76 mg/dl (7-17); Calcium 9.3 mg/dl (8.4-10.2); Carbon Dioxide 24 mmol/L (22-30); Chloride 95 mmol/L (98-107); Estimated Creatinine Clearance 23 ml/min; Glucose 97 mg/dl (70-99); Sodium 133 mmol/L (135-145); eGFR 23.53
[2023-08-14 07:19] LABS: Glucose - Point of Care 93 mg/dl (70-99)
--- NOTE | 2023-08-14 08:20 | W.PN.CD ---
Today's Communication / Plan
-
- continue diuresis to around goal weight and transition to oral
- monitor creatinine
Impression / Plan
-
77 yo female with PMH of chronic HFPEF, CKD4, permanent A fib, mechanical MVR on coumadin admitted with acute on chronic HFPEF.� She has significant edema and weight gain after recent admit at [place]
HFpEF - acute on chronic.
- weight is up to 202 lbs. Dry weight is 175-180 lbs.
- continue IV Lasix 60mg IV BID with close monitoring of renal function -> weight coming down and creatinine OK so far...
- high risk situation with CKD4 and cardiorenal syndrome.
- check echo today.
- I&Os, fluid restrictions, daily weights.
CKD4 - acute on chronic.
- has declined nephrology evaluation in the past, may consider consult this admission.
TAVR - 09/2022.
- stable on echo prior.
- check echo today.
MVR - mechanical in 2008.
- stable.
- check echo today,
- chronic Coumadin, therapeutic INR today, monitor.
Afib - permanent.
- asymptomatic.
- V paced on tele and EKG.
CAD - s/p CABG.
- stable w/o angina.
- no ASA due to chronic Coumadin and had prior SDH.
HLD - stable on Lipitor, continue.
ICD - Medtronic single chamber device.
- stable with normal function.
- no discharges.
- continue f/u in device clinic.
Physical Exam
Vital Signs/Labs
Vital Signs
Temp Pulse Resp BP Pulse Ox
36.3 C 59 18 125/58 98
08/14/23 08:18 08/14/23 03:00 08/14/23 08:18 08/14/23 02:58 08/14/23 08:18
08/13/23 08/14/23 08/15/23
06:59 06:59 06:59
Actual Weight 197 lb 5.019 oz 195 lb 1.745 oz
08/14/23 03:24
08/14/23 03:24
PT 27.5 Sec (11.4-14.6) H 08/14/23 03:24
INR 2.51 08/14/23 03:24
APTT 49.6 Sec (23.4-35.0) H 08/12/23 16:13
Magnesium 2.4 mg/dl (1.6-2.3) H 08/13/23 04:06
Triglycerides 78 mg/dl (10-149) 08/13/23 04:06
LDL Cholesterol, Calc 56 mg/dl 08/13/23 04:06
VLDL Cholesterol, Calc 15 mg/dl (0-30) 08/13/23 04:06
HDL Cholesterol 27 mg/dl 08/13/23 04:06
Free T4 1.46 ng/dl (0.78-2.19) 08/13/23 04:06
Digoxin 0.8 ng/ml (0.8-2.0) 08/13/23 04:06
08/12/23
15:45
Gkf-L-Ehjxvrrtehr Pept 1470
LAB Results
08/12/23 08/12/23 08/13/23
15:45 23:34 04:06
Troponin I 0.021 0.021 0.020
Physical Exam
Constitutional: No acute distress and Comfortable
EENT: Anicteric and Moist mucous membranes
Cardiovascular: Rhythm & rate is regular, Systolic murmur absent, Diastolic murmur absent and Pedal edema present
Respiratory: Respiratory effort normal
GI: Soft, Distention absent, Non tender and Normal bowel sounds
Neuro/Psych: Alert
Data Reviewed
-
Date of Service: August 14, 2023
[2023-08-14] MEDS: LASIX 60 MG IV ×2 (08:43→16:20)
[2023-08-14] MEDS: NOVOLOG FLEXPEN-LOW RESISTANCE SC ×2 (08:43→17:29)
[2023-08-14] MEDS: FLUSH (NSS) 1 FLUSH IV ×3 (08:45→16:25)
[2023-08-14] MEDS: DESENEX/MITRAZOL/ZEASORB 1 APPLIC TOPICAL ×2 (08:46→19:41)
[2023-08-14] MEDS: KCL 20 MEQ PO ×2 (08:46→19:41)
[2023-08-14] MEDS: ZYLOPRIM 100 MG PO (08:46)
[2023-08-14] MEDS: TOPROL XL 100 MG PO ×2 (08:46→19:41)
[2023-08-14] MEDS: CARDIZEM CD 240 MG PO (08:46)
[2023-08-14] MEDS: ALDACTONE 12.5 MG PO (08:48)
[2023-08-14] MEDS: PRANDIN 0.5 MG PO ×3 (08:48→17:28)
--- NOTE | 2023-08-14 10:07 | PTCARENOTE ---
patient up OOB to chair , with assist x 1 and rolling walker for breakfast. monitor shows V paced, VSS, patient still has generalized anasarca but decreased since yesterday, especially in the hands. continue to encourage patient to get OOB for each
meal, patient is receptive.
--- NOTE | 2023-08-14 11:35 | W.PN.HOSP.TC ---
Today's Communication/Plan
-
Diuresis
Assessment / Plan
Assessment / Plan
77-year-old female with history of CHF was treated at [facility] for CHF and was discharged to a local rehab.� Patient still had a lot of edema which got worse which prompted her to come to [facility].� Patient has shortness
of breath and feels really tired and puffy all over.� Clothes not fitting her anymore.� Denies any chest pain
On examination
AA and oriented
Cardiovascular system S1-S2 irregular, systolic murmur at right heart border
Chest Decreased , but CTA
Abdomen soft and nontender
4+ pitting edema bilateral upper extremities and lower extremities, edema of hands better
Gouty tophi on the index finger on the right
# Acute on chronic heart failure with PEF
Also suspect right heart failure-Type unknown
Patient denies sleep apnea but-may need a sleep study given findings on the echo.
Diuresis Lasix 60 mg IV twice daily as long as blood pressure can tolerate.
Follow creatinine closely with CKD
Diuresis may be difficult with pulmonary hypertension
Troponin negative for ischemia
Cardiology eval appreciated.
Intake output charting and daily weights I would hold Aldactone
Hold metolazone for now.
Continue metoprolol
Not on ROSALIND inhibitor likely secondary to elevated creatinine.
Likely not on SGLT2 inhibitors because of her creatinine fluctuation.� To consider this eventually for goal-directed therapy.
Echo 11/23/2022-normal LV systolic function.� EF 57%.� Mild concentric LVH.� Dilated and hypokinetic RV with evidence of pressure and volume overload.� Normal functioning [place] mechanical mitral valve.� Normal functioning TAVR.� Severe TR.�
Estimated pulmonary artery pressure 55 mmHg.
Cards ordering repeat
# Elevated uric acid level with gouty Tophi-start allopurinol. Discussed with the patient.
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
TAVR was on October 05, 2022.
Severe TR noted
# History of V-fib cardiac arrest requiring ICD placement
# Coronary artery disease with CABG in 2008
# Permanent atrial fibrillation-continue Cardizem and metoprolol for rate control
She is also on digoxin- digoxin level within normal range
On Coumadin for anticoagulation
# Acute on CKD stage III
Follow creatinine with diuresis
Check urine analysis and urine sodium
If patient continues to be volume overloaded and creatinine worsening may need nephrology evaluation
# Chronic right bundle branch block
# Hypertension
Follow blood pressure on metoprolol,Aldactone
May drop with diuresis given pulmonary hypertension
# Hyperlipidemia-continue statin
# Diabetes type 2 Accu-Cheks and sliding scale coverage
Patient on Prandin
Hemoglobin A1c 7.5
# Elevated LFTs likely secondary to hepatic congestion.
Follow with diuresis
# Mild hyponatremia-from fluid overload hypervolemic in nature
Will improve with diuresis
# History of subdural hemorrhage
#Elevated TSH with normal T4. Needs repeat
# Obesity
# DNR per D/W patient and daughters at bed side
D/W nursing at bed side
Spoke to daughter Sonia and updated.
Anticipated Discharge: > 48 hours
Subjective/Interval History
-
Date of Service: August 14, 2023
Objective Data
-
Labs:
Laboratory Results
08/14/23
03:24
WBC 4.1 L
Hgb 12.0
Hct 34.7 L
Plt Count 175
PT 27.5 H
INR 2.51
Sodium 133 L
Potassium 4.0
Chloride 95 L
Carbon Dioxide 24
BUN 76 H
Creatinine 2.1 H
Glucose 97
Calcium 9.3
Vital Signs:
Vital Signs
Temp Pulse Resp BP Pulse Ox
97.3 F 53 18 111/51 96
08/14/23 08:18 08/14/23 09:00 08/14/23 08:18 08/14/23 08:48 08/14/23 08:30
I&O
08/13/23 08/14/23 08/15/23
06:59 06:59 06:59
Intake Total 240 / 240
Output Total 825 / 825 1800 / 1800 250 / 250
Balance -585 / -585 -1800 / -1800 -250 / -250
--- NOTE | 2023-08-14 12:10 | PN.CDI ---
CDI
- -
CDI:
Physician Documentation Request
Admit Date: 08/12/23 18:09
Dear Doctor Rohan,
Patient admitted for heart failure.
Hospitalist progress notes report CKD III
Cardiology states CKD 4
Most recent eGFR results are as follows:
Laboratory Tests
06/20/23 08/12/23 08/13/23
13:18 15:45 04:06
eGFR 24.94 21.09 22.25
08/14/23
03:24
eGFR 23.53
In an attempt to clarify potential conflicting documentation please clarify which of the following accurately represents the patient's renal status:
____ - CKD 4
____ - CKD 3
____ - Other
Stages of Chronic Kidney Disease*
Level Description GFR
G1 Normal or High >90
G2 Mildly decreased 60-89
G3a Mildly to moderately decreased 45-59
G3b Moderately to severely decreased 30-44
G4 Severely decreased 15-29
G5 Kidney failure <15
Use of terms such as suspected, likely, concern for, or probable (associated with a specific diagnosis that is being evaluated, monitored, or treated as if it exists) are acceptable and can be coded in the inpatient setting, when documented at the
time of discharge.
Thank you,
Nell Bolivar RN, BSN
CDI Specialist
tiger text
Please use your independent medical judgment in providing your response.
*Source: Kidney Disease: Improving Global Outcomes (KDIGO) 2012
[2023-08-14 13:02] LABS: Glucose - Point of Care 168 mg/dl (70-99)
[2023-08-14] MEDS: NOVOLOG FLEXPEN-LOW RESISTANCE 1 UNITS SC (13:04)
--- NOTE | 2023-08-14 14:13 | CM ---
Reviewed chart. Met with and Mrs. Pastrana to review discharge plans. We reviewed the team recommendation of SNF/Rehab. She is still hoping she will be able to go directly home with [facility]. She states she does not want to go
back to [facility]. She states she will consider [facility], [facility] and [facility]. Sent referral to above to see they will have any bed availability. Medical work-up in progress. The discharge plan [facility] if bed available when medically stable.
[2023-08-14 17:22] LABS: Glucose - Point of Care 126 mg/dl (70-99)
[2023-08-14] MEDS: LIPITOR 40 MG PO (17:25)
[2023-08-14] MEDS: COUMADIN 2.5 MG PO (17:28)
[2023-08-14 21:24] LABS: Glucose - Point of Care 175 mg/dl (70-99)
[2023-08-14] MEDS: LANOXIN 125 MCG PO (22:45)
[2023-08-14] MEDS: AMBIEN 5 MG PO (23:41)
[2023-08-15] VITALS (12 sets, daily range): BP systolic 79–123; BP diastolic 52–79; PULSE 51; O2SAT 97; BMI 33.6
[2023-08-15 05:28] LABS: Blood Urea Nitrogen 73 mg/dl (7-17); Calcium 9.1 mg/dl (8.4-10.2); Carbon Dioxide 26 mmol/L (22-30); Chloride 94 mmol/L (98-107); Estimated Creatinine Clearance 25 ml/min; Glucose 80 mg/dl (70-99); Potassium 3.6 mmol/L (3.5-5.1); Sodium 132 mmol/L (135-145); eGFR 24.94
[2023-08-15 05:30] LABS: INR 3.17
[2023-08-15 07:41] LABS: Glucose - Point of Care 74 mg/dl (70-99)
[2023-08-15] MEDS: NOVOLOG FLEXPEN-LOW RESISTANCE SC ×2 (08:16→13:13)
--- NOTE | 2023-08-15 08:28 | W.PN.CD ---
Impression / Plan
-
77 yo female with PMH of chronic HFPEF, CKD4, permanent A fib, mechanical MVR on coumadin admitted with acute on chronic HFPEF.� She has significant edema and weight gain after recent admit at [place]
HFpEF - acute on chronic.
- weight is up to 202 lbs. Dry weight is 175-180 lbs.
- continue IV Lasix 60mg IV BID with close monitoring of renal function -> weight coming down and creatinine OK so far...
- high risk situation with CKD4 and cardiorenal syndrome.
-RV HK and dilated with s/o volume pressure overload seen on echo
- I&Os, fluid restrictions, daily weights.
CKD4 - acute on chronic.
-improving with diuresis
- has declined nephrology evaluation in the past
MVR - mechanical in 2008.
- stable.
-normally functioning [facility] Bowen MVR
- chronic Coumadin, therapeutic INR 3.17 today continue to closely monitor.
TAVR - 09/2022.
- stable on echo prior.
- normally functioning on TAVR
Afib - permanent.
- asymptomatic.
- V paced on tele and EKG.
CAD - s/p CABG.
- stable w/o angina.
- no ASA due to chronic Coumadin and had prior SDH.
HLD - stable on Lipitor, continue.
ICD - Medtronic single chamber device.
-frequent pacing seen on tele
- stable with normal function.
- no discharges.
- continue f/u in device clinic.
Data :
TTE 08/14/23:
CONCLUSIONS
�Normal left ventricular systolic function. Left ventricular ejection fraction
�is 57%� by Gonzalez's method of discs.
�Dilated and hypokinetic right ventricle with evidence of pressure and volume
�overload.
�Normally functioning #31 [facility] Bowen mechanical mitral valve replacement.
�Normally functioning #23 [place] Gin TAVR.
�Severe tricuspid regurgitation. Estimated pulmonary artery pressure of 55 mmHg.
�No significant change since the prior study of October 2022
Physical Exam
Vital Signs/Labs
Vital Signs
Temp Pulse Resp BP Pulse Ox
98 F 50 18 113/68 97
08/15/23 07:36 08/15/23 07:36 08/15/23 07:36 08/15/23 04:32 08/15/23 07:36
08/14/23 08/15/23 08/16/23
06:59 06:59 06:59
Actual Weight 88.5 kg 88.6 kg
08/14/23 03:24
08/15/23 04:41
PT 33.0 Sec (11.4-14.6) H 08/15/23 04:42
INR 3.17 08/15/23 04:42
APTT 49.6 Sec (23.4-35.0) H 08/12/23 16:13
Magnesium 2.4 mg/dl (1.6-2.3) H 08/13/23 04:06
Triglycerides 78 mg/dl (10-149) 08/13/23 04:06
LDL Cholesterol, Calc 56 mg/dl 08/13/23 04:06
VLDL Cholesterol, Calc 15 mg/dl (0-30) 08/13/23 04:06
HDL Cholesterol 27 mg/dl 08/13/23 04:06
Free T4 1.46 ng/dl (0.78-2.19) 08/13/23 04:06
Digoxin 0.8 ng/ml (0.8-2.0) 08/13/23 04:06
08/12/23
15:45
Zfx-I-Vuvvlewokjl Pept 1470
LAB Results
08/12/23 08/12/23 08/13/23
15:45 23:34 04:06
Troponin I 0.021 0.021 0.020
Data Reviewed
-
Date of Service: August 15, 2023
[2023-08-15] MEDS: ZYLOPRIM 100 MG PO (08:35)
[2023-08-15] MEDS: PRANDIN 0.5 MG PO ×3 (08:36→16:04)
[2023-08-15] MEDS: TOPROL XL 100 MG PO (08:36)
[2023-08-15] MEDS: CARDIZEM CD 240 MG PO (08:36)
--- NOTE | 2023-08-15 08:36 | W.PN.CD ---
Today's Communication / Plan
-
Increase Lasix
Agree with the Zaroxolyn
Echo this admit
Needs several days of IV diuresis
High risk
In past she was hard to rate control,
- not the case now
- given the frequent V pace and NORMAL LVEF with HFpEF :
- I will STOP DIG and decrease metoprolol
Impression / Plan
-
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
HFpEF - acute on chronic.
- weight is up to 202 lbs. Dry weight is 175-180 lbs.
- continue IV Lasix 80mg IV BID(increased fro 60) with close monitoring of renal function -> weight coming down and creatinine OK so far.
- Agre with the addition of Zaroxolyn
- high risk situation with CKD4 and cardiorenal syndrome.
-RV HK and dilated with s/o volume pressure overload seen on echo
- I&Os, fluid restrictions, daily weights.
CKD4 - acute on chronic.
-improving with diuresis
- has declined nephrology evaluation in the past
MVR - mechanical in 2008.
- stable.
-normally functioning [facility] Bowen MVR
- chronic Coumadin, therapeutic INR 3.17 today continue to closely monitor.
TAVR - 09/2022.
- stable on echo prior.
- normally functioning on TAVR
Afib - permanent.
- asymptomatic.
- V paced on tele and EKG.
- In past she was hard to rate control, not the case now and given the frequent V pace and NORMAL LVEF with HFpEF I will STOP DIG and decrease metoprolol
CAD - s/p CABG.
- stable w/o angina.
- no ASA due to chronic Coumadin and had prior SDH.
HLD - stable on Lipitor, continue.
ICD - Medtronic single chamber device.
-frequent pacing seen on tele
- stable with normal function.
- no discharges.
- continue f/u in device clinic.
Data :
TTE 11/23/2022:
CONCLUSIONS
�Normal LV systolic function. LVEF 57%
�Dilated and hypo RV with pressure and volume�overload.
�Normally functioning #31 [place] Bowen mechanical mitral valve replacement.
�Normally functioning #23 [place] Gin TAVR.
�Severe tricuspid regurgitation. Est PASP 55 mmHg. Severe TR preceded ICD implant.
�No significant change since the prior study of October 2022
Cath 08/2022
[place] CAD as described with patent bypass grafts including SOMMERS-LAD, SVG-OM1-OM2, and SVG-RCA
Findings are similar to the prior study from 09/21/2020
She will have a pre TAVR chest CTA once her renal fun
Physical Exam
Vital Signs/Labs
Vital Signs
Temp Pulse Resp BP Pulse Ox
98 F 50 18 113/68 97
08/15/23 07:36 08/15/23 07:36 08/15/23 07:36 08/15/23 04:32 08/15/23 07:36
08/14/23 08/15/23 08/16/23
06:59 06:59 06:59
Actual Weight 88.5 kg 88.6 kg
08/14/23 03:24
08/15/23 04:41
PT 33.0 Sec (11.4-14.6) H 08/15/23 04:42
INR 3.17 08/15/23 04:42
APTT 49.6 Sec (23.4-35.0) H 08/12/23 16:13
Magnesium 2.4 mg/dl (1.6-2.3) H 08/13/23 04:06
Triglycerides 78 mg/dl (10-149) 08/13/23 04:06
LDL Cholesterol, Calc 56 mg/dl 08/13/23 04:06
VLDL Cholesterol, Calc 15 mg/dl (0-30) 08/13/23 04:06
HDL Cholesterol 27 mg/dl 08/13/23 04:06
Free T4 1.46 ng/dl (0.78-2.19) 08/13/23 04:06
Digoxin 0.8 ng/ml (0.8-2.0) 08/13/23 04:06
08/12/23
15:45
Ryu-N-Clvabohcjgq Pept 1470
LAB Results
08/12/23 08/12/23 08/13/23
15:45 23:34 04:06
Troponin I 0.021 0.021 0.020
Physical Exam
Constitutional: No acute distress
EENT: Anicteric
Cardiovascular: Rhythm/rate is irregular, Pedal edema present, JVD present and Murmur/rub/gallop absent
Respiratory: Respiratory effort normal and Lungs clear to auscul.
GI: Soft and Distention absent
Neuro/Psych: AO x 3
Data Reviewed
-
Date of Service: August 15, 2023
[2023-08-15] MEDS: ALDACTONE 12.5 MG PO (08:37)
[2023-08-15] MEDS: KCL 20 MEQ PO ×2 (08:37→20:44)
[2023-08-15] MEDS: ZAROXOLYN 2.5 MG PO (08:37)
[2023-08-15] MEDS: DESENEX/MITRAZOL/ZEASORB 1 APPLIC TOPICAL ×2 (08:38→20:45)
[2023-08-15] MEDS: LASIX IV (08:42)
--- NOTE | 2023-08-15 08:59 | W.PN.HOSP.TC ---
Today's Communication/Plan
-
Lasix
One dose of Zaroxolyn
Assessment / Plan
Assessment / Plan
77-year-old female with history of CHF was treated at [facility] for CHF and was discharged to a local rehab.� Patient still had a lot of edema which got worse which prompted her to come to [facility].� Patient has shortness
of breath and feels really tired and puffy all over.� Clothes not fitting her anymore.� Denies any chest pain
On examination
AA and oriented
Cardiovascular system S1-S2 irregular, systolic murmur at right heart border
Chest Decreased , but CTA
Abdomen soft and nontender
4+ pitting edema bilateral upper extremities and lower extremities, edema of hands better
Gouty tophi on the index finger on the right
# Acute on chronic heart failure with PEF
Also suspect right heart failure-Type unknown
Patient denies sleep apnea but-may need a sleep study given findings on the echo.
Diuresis Lasix 80 mg IV twice daily . One dose of Zaroxolyn
Follow creatinine closely with CKD
Diuresis may be difficult with pulmonary hypertension
Troponin negative for ischemia
Intake output charting and daily weights
Continue metoprolol
Not on ROSALIND inhibitor likely secondary to elevated creatinine.
Likely not on SGLT2 inhibitors because of her creatinine fluctuation.� To consider this eventually for goal-directed therapy.
Echo 11/23/2022-normal LV systolic function.� EF 57%.� Mild concentric LVH.� Dilated and hypokinetic RV with evidence of pressure and volume overload.� Normal functioning [place] mechanical mitral valve.� Normal functioning TAVR.� Severe TR.�
Estimated pulmonary artery pressure 55 mmHg.
Cards ordering repeat
# Elevated uric acid level with gouty Tophi-started allopurinol. Discussed with the patient.
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
TAVR was on October 05, 2022.
Severe TR noted
# History of V-fib cardiac arrest requiring ICD placement
# Coronary artery disease with CABG in 2008
# Permanent atrial fibrillation-continue Cardizem and metoprolol for rate control
Dig stopped
On Coumadin for anticoagulation
# Acute on CKD stage IV
Follow creatinine with diuresis
Check urine analysis and urine sodium
If patient continues to be volume overloaded and creatinine worsening may need nephrology evaluation
# Chronic right bundle branch block
# Hypertension
Follow blood pressure on metoprolol,Aldactone
May drop with diuresis given pulmonary hypertension
# Hyperlipidemia-continue statin
# Diabetes type 2 Accu-Cheks and sliding scale coverage
Patient on Prandin
Hemoglobin A1c 7.5
# Elevated LFTs likely secondary to hepatic congestion.
Follow with diuresis
# Mild hyponatremia-from fluid overload hypervolemic in nature
Will improve with diuresis
# History of subdural hemorrhage
#Elevated TSH with normal T4. Needs repeat
# Obesity
# DNR per D/W patient and daughters at bed side
D/W nursing
D/W Cards
08/15/23-Spoke to daughter Sonia and updated.
Anticipated Discharge: > 48 hours
Subjective/Interval History
-
Date of Service: August 15, 2023
Objective Data
-
Labs:
Laboratory Results
08/15/23 08/15/23
04:41 04:42
PT 33.0 H
INR 3.17
Sodium 132 L
Potassium 3.6
Chloride 94 L
Carbon Dioxide 26
BUN 73 H
Creatinine 2.0 H
Glucose 80
Calcium 9.1
Vital Signs:
Vital Signs
Temp Pulse Resp BP Pulse Ox
98 F 50 18 113/68 97
08/15/23 07:36 08/15/23 07:36 08/15/23 07:36 08/15/23 04:32 08/15/23 07:36
I&O
08/14/23 08/15/23 08/16/23
06:59 06:59 06:59
Output Total 1800 / 1800 1475 / 1475
Balance -1800 / -1800 -1475 / -147
[2023-08-15] MEDS: LASIX 80 MG IV ×2 (09:37→16:05)
[2023-08-15 13:12] LABS: Glucose - Point of Care 137 mg/dl (70-99)
--- NOTE | 2023-08-15 16:45 | PTCARENOTE ---
pt continues to be vpaced on the monitor, hr in the 50s, vss. pt offers no complaints at this time. pt has been sitting up in the chair, worked with pt/ot today and has been visiting with family. pt educated on plan of care for the evening and pt
verbalized understanding. call valdes within reach.
[2023-08-15 17:10] LABS: Glucose - Point of Care 160 mg/dl (70-99)
[2023-08-15] MEDS: LIPITOR 40 MG PO (17:47)
[2023-08-15] MEDS: NOVOLOG FLEXPEN-LOW RESISTANCE 1 UNITS SC (17:48)
[2023-08-15] MEDS: TOPROL XL 75 MG PO (20:44)
[2023-08-15 21:42] LABS: Glucose - Point of Care 129 mg/dl (70-99)
--- NOTE | 2023-08-15 22:20 | TRANSFER ---
Received pt from IVU via wheelchair. Pt ambulated to bed x1 with RW. AAOx3. No complaints of pain. DOBBINS. patient monitor placed. Assessed and oriented to room. Pt verbalized understanding of call valdes. Call valdes within close reach. Will continue to
monitor.
[2023-08-15] MEDS: AMBIEN 5 MG PO (23:50)
[2023-08-16] VITALS (7 sets, daily range): BP systolic 112–183; BP diastolic 60–100; PULSE 51; O2SAT 98; BMI 33.0
[2023-08-16 06:38] LABS: INR 3.57; PT 36.2 Sec (11.4-14.6)
[2023-08-16 07:21] LABS: Blood Urea Nitrogen 72 mg/dl (7-17); Calcium 9.1 mg/dl (8.4-10.2); Carbon Dioxide 27 mmol/L (22-30); Chloride 92 mmol/L (98-107); Estimated Creatinine Clearance 23 ml/min; Glucose 90 mg/dl (70-99); Potassium 3.3 mmol/L (3.5-5.1); Sodium 132 mmol/L (135-145); eGFR 23.53
--- NOTE | 2023-08-16 08:29 | CM ---
Reviewed chart. Received telephone call from Sonia at [facility], who states they can offer a bed for Mrs. Landrum. Tentatively they can accept on Sunday08/18/23 if medically stable. Will need to review with her and her spouse
regarding bed. Medical work-up in progress. The discharge plan is to go to SNF/Rehab. at [facility] if patient agreeable when medically stable.
[2023-08-16 08:56] LABS: Glucose - Point of Care 88 mg/dl (70-99)
[2023-08-16] MEDS: NOVOLOG FLEXPEN-LOW RESISTANCE SC ×2 (09:10→17:09)
--- NOTE | 2023-08-16 09:44 | W.PN.CD ---
Today's Communication / Plan
-
continue IV Lasix 80mg IV BID
give metolazone 5mg x1 today
increase Kcl
Impression / Plan
-
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
HFpEF - acute on chronic.
-echo below
-high risk situation with CKD4 and cardiorenal syndrome: close monitoring of labs and tele
-hypokalemianoted: increase Kcl to 40 mEq bid
- Dry weight is ~180 lbs.
- continue IV Lasix 80mg IV BID
-give metolazone 5mg x1 today
CKD4 - acute on chronic.
-improving with diuresis
- has declined nephrology evaluation in the past
MVR - mechanical in 2008.
- stable on echo
-normally functioning ST Bowen MVR
- chronic Coumadin, therapeutic INR 3.17 today continue to closely monitor.
TAVR - 09/2022.
- stable on echo
- normally functioning on TAVR
Afib - permanent.
- asymptomatic.
- V paced on tele and EKG.
- In past she was hard to rate control, not the case now and given the frequent V pace and NORMAL LVEF with HFpEF: stopped digoxin and decreased metoprolol this admission
CAD - s/p CABG.
- stable w/o angina.
- no ASA due to chronic Coumadin and had prior SDH.
HLD - stable on Lipitor, continue.
ICD - Medtronic single chamber device.
-frequent pacing seen on tele
- stable with normal function.
- no discharges.
- continue f/u in device clinic.
Data :
TTE 08/15/23:
CONCLUSIONS
�Normal LV systolic function. LVEF 55-60%
�Dilated and hypo RV with pressure and volume�overload.
�Normally functioning #31 [facility]. Bowen mechanical mitral valve replacement.
�Normally functioning #23 Del [place]illo Gin TAVR.
�Severe tricuspid regurgitation. Severe TR preceded ICD implant.
Cath 08/2022
[place] CAD as described with patent bypass grafts including SOMMERS-LAD, SVG-OM1-OM2, and SVG-RCA
Findings are similar to the prior study from 09/21/2020
She will have a pre TAVR chest CTA once her renal fun
Physical Exam
Vital Signs/Labs
Vital Signs
Temp Pulse Resp BP Pulse Ox
97.2 F 58 17 132/91 96
08/16/23 07:00 08/16/23 07:00 08/16/23 07:00 08/16/23 07:00 08/16/23 07:00
08/15/23 08/16/23 08/17/23
06:59 06:59 06:59
Actual Weight 88.6 kg 87.09 kg
08/14/23 03:24
08/16/23 06:16
PT 36.2 Sec (11.4-14.6) H 08/16/23 06:16
INR 3.57 08/16/23 06:16
APTT 49.6 Sec (23.4-35.0) H 08/12/23 16:13
Magnesium 2.4 mg/dl (1.6-2.3) H 08/13/23 04:06
Triglycerides 78 mg/dl (10-149) 08/13/23 04:06
LDL Cholesterol, Calc 56 mg/dl 08/13/23 04:06
VLDL Cholesterol, Calc 15 mg/dl (0-30) 08/13/23 04:06
HDL Cholesterol 27 mg/dl 08/13/23 04:06
Free T4 1.46 ng/dl (0.78-2.19) 08/13/23 04:06
Digoxin 0.8 ng/ml (0.8-2.0) 08/13/23 04:06
08/12/23
15:45
Rom-B-Bhqidzlzlay Pept 1470
Physical Exam
Constitutional: No acute distress and Comfortable
EENT: Moist mucous membranes
Cardiovascular: Rhythm/rate is irregular, Pedal edema present, JVD present and Systolic murmur present
Respiratory: Respiratory effort normal and Lungs clear to auscul.
GI: Soft, Distention absent and Flat
Neuro/Psych: AO x 3
Data Reviewed
-
Date of Service: August 16, 2023
EKG: Other (Tele: A fib, V paced, PVC's)
Echo: Report Reviewed by me (per note)
Labs: Labs Reviewed by me
[2023-08-16] MEDS: CARDIZEM CD 240 MG PO (09:51)
[2023-08-16] MEDS: PRANDIN 0.5 MG PO ×3 (09:51→17:13)
[2023-08-16] MEDS: KCL 20 MEQ PO (09:51)
[2023-08-16] MEDS: ZYLOPRIM 100 MG PO (09:51)
[2023-08-16] MEDS: ALDACTONE 12.5 MG PO (09:52)
[2023-08-16] MEDS: LASIX 80 MG IV ×2 (09:53→17:13)
[2023-08-16] MEDS: TOPROL XL 75 MG PO ×2 (09:53→20:28)
[2023-08-16] MEDS: DESENEX/MITRAZOL/ZEASORB 1 APPLIC TOPICAL ×2 (09:54→20:26)
[2023-08-16 11:58] LABS: Glucose - Point of Care 213 mg/dl (70-99)
--- NOTE | 2023-08-16 13:17 | PN.CDI ---
Addendum entered and electronically signed by Christo aMdrigal MD 08/17/23 11:47:
no change in my documentation
Original Note:
CDI
- -
CDI:
Physician Documentation Request
Admit Date: 08/12/23 18:09
Dear Doctor Rohan,
Patient admitted with heart failure and has CKD 4.
Hospitalist progress notes state 'acute on CKD .....'
Criteria for JOJO*
1 Increase in serum creatinine by > or = to 0.3 mg/dL (> or = to 26.5 micromol/L) within 48 hours, OR
2 Increase in serum creatinine to > or = to 1.5 times baseline, which is known or presumed to have occurred within 7 days, OR
3 Urine volume < 0.5 nL/kg/hour for six hours
Based on the above information and the recognized standard for JOJO/Acute renal failure could you please verify this diagnoses is still accurate and reflective of the patient�s condition to ensure quality of the medical record.
Please clarify in the Progress Notes:
�JOJO/Acute renal failure is/was present and is a clinical diagnosis based on (please include this additional support in the medical record)
�After study acute renal failure has been ruled out
�Other
Use of terms such as suspected, likely, concern for, or probable (associated with a specific diagnosis that is being evaluated, monitored, or treated as if it exists) are acceptable and can be coded in the inpatient setting, when documented at the
time of discharge.
Thank you,
Nell Bolivar RN, BSN
CDI Specialist
tiger text
Please use your independent medical judgment in providing your response.
[2023-08-16] MEDS: NOVOLOG FLEXPEN-LOW RESISTANCE 2 UNITS SC (13:21)
--- NOTE | 2023-08-16 15:03 | W.PN.HOSP.TC ---
Today's Communication/Plan
-
Patient still has significant weight to lose before discharge
Continue IV Lasix and Zaroxolyn
Follow creatinine with diuresis
Assessment / Plan
Assessment / Plan
77-year-old female with history of CHF was treated at [facility] for CHF and was discharged to a local rehab.� Patient still had a lot of edema which got worse which prompted her to come to [facility].� Patient has shortness
of breath and feels really tired and puffy all over.� Clothes not fitting her anymore.� Denies any chest pain
On examination
AA and oriented
Cardiovascular system S1-S2 irregular, systolic murmur at right heart border
Chest Decreased , but CTA
Abdomen soft and nontender
4+ pitting edema bilateral upper extremities and lower extremities, edema of hands better
Gouty tophi on the index finger on the right
# Acute on chronic heart failure with PEF
Also suspect right heart failure-Type unknown
Patient denies sleep apnea but-may need a sleep study given findings on the echo.
Diuresis Lasix 80 mg IV twice daily . One dose of Zaroxolyn again today.
Follow creatinine closely with CKD
Diuresis may be difficult with pulmonary hypertension
Troponin negative for ischemia
Intake output charting and daily weights
Continue metoprolol
Not on ROSALIND inhibitor likely secondary to elevated creatinine.
Likely not on SGLT2 inhibitors because of her creatinine fluctuation.� To consider this eventually for goal-directed therapy.
Echo 08/15/2023-normal LV systolic function. Dilated RV. Normal RV contractility. Septal flattening in diastole consistent with RV volume overload. Seen Bowen mechanical mitral valve replacement well-seated. TAVR well-seated. Severely dilated
atrium. Severe TR. Pulmonary pressure 28 mmHg.
# Elevated uric acid level with gouty Tophi-started allopurinol. Discussed with the patient.
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
TAVR was on October 05, 2022.
Severe TR noted
# History of V-fib cardiac arrest requiring ICD placement
# Coronary artery disease with CABG in 2008
# Permanent atrial fibrillation-continue Cardizem and metoprolol for rate control-dose reduced discussed with at bedside
Dig stopped
On Coumadin for anticoagulation
Hold Coumadin again on 08/16/2023 as INR is elevated above 3
# Acute on CKD stage IV
Follow creatinine with diuresis
Check urine analysis and urine sodium
If patient continues to be volume overloaded and creatinine worsening may need nephrology evaluation
# Chronic right bundle branch block
# Hypertension
Follow blood pressure on metoprolol,Aldactone
May drop with diuresis given pulmonary hypertension
# Hyperlipidemia-continue statin
# Diabetes type 2 Accu-Cheks and sliding scale coverage
Patient on Prandin
Hemoglobin A1c 7.5
# Elevated LFTs likely secondary to hepatic congestion.
Follow with diuresis
# Mild hyponatremia-from fluid overload hypervolemic in nature
Will improve with diuresis
# History of subdural hemorrhage
#Elevated TSH with normal T4. Needs repeat
# Obesity
# DNR per D/W patient and daughters at bed side
D/W nursing
D/W Cards
Discussed with at bedside
Anticipated Discharge: > 48 hours
Subjective/Interval History
-
Date of Service: August 16, 2023
Objective Data
-
Labs:
Laboratory Results
08/16/23
06:16
PT 36.2 H
INR 3.57
Sodium 132 L
Potassium 3.3 L
Chloride 92 L
Carbon Dioxide 27
BUN 72 H
Creatinine 2.1 H
Glucose 90
Calcium 9.1
Vital Signs:
Vital Signs
Temp Pulse Resp BP Pulse Ox
97.2 F 53 16 183/100 97
08/16/23 07:00 08/16/23 11:00 08/16/23 11:00 08/16/23 11:00 08/16/23 11:00
I&O
08/15/23 08/16/23 08/17/23
06:59 06:59 06:59
Intake Total 480 / 480
Output Total 1475 / 1475 625 / 625
Balance -1475 / -1475 -145 / -145
[2023-08-16] MEDS: ZAROXOLYN 5 MG PO (16:05)
[2023-08-16 16:37] LABS: Glucose - Point of Care 82 mg/dl (70-99)
--- NOTE | 2023-08-16 16:38 | CM ---
met with patient and her .discussed being accepted at [facility] when medically stable.they can take patient tomorrow if stable.patient with chf continues on lasix 80mg bid.
Plan is dc to [facility] snf when stable for discharge.
[2023-08-16] MEDS: KCL 40 MEQ PO (17:13)
[2023-08-16] MEDS: LIPITOR 40 MG PO (17:13)
[2023-08-16 21:46] LABS: Glucose - Point of Care 131 mg/dl (70-99)
[2023-08-17] VITALS (7 sets, daily range): BP systolic 115–129; BP diastolic 54–71; PULSE 51; O2SAT 97; BMI 33.0
[2023-08-17 06:40] LABS: INR 3.44; PT 35.2 Sec (11.4-14.6)
[2023-08-17 07:09] LABS: Blood Urea Nitrogen 77 mg/dl (7-17); Carbon Dioxide 26 mmol/L (22-30); Chloride 91 mmol/L (98-107); Estimated Creatinine Clearance 23 ml/min; Glucose 92 mg/dl (70-99); Potassium 3.8 mmol/L (3.5-5.1); Sodium 131 mmol/L (135-145); eGFR 23.53
[2023-08-17 08:28] LABS: Glucose - Point of Care 96 mg/dl (70-99)
[2023-08-17] MEDS: NOVOLOG FLEXPEN-LOW RESISTANCE SC (08:34)
[2023-08-17] MEDS: PRANDIN 0.5 MG PO ×3 (09:06→17:28)
[2023-08-17] MEDS: KCL 40 MEQ PO ×2 (09:06→17:27)
[2023-08-17] MEDS: ZYLOPRIM 100 MG PO (09:06)
[2023-08-17] MEDS: CARDIZEM CD 240 MG PO (09:06)
[2023-08-17] MEDS: LASIX 80 MG IV ×2 (09:07→17:28)
[2023-08-17] MEDS: ALDACTONE 12.5 MG PO (09:07)
[2023-08-17] MEDS: TOPROL XL 75 MG PO (09:07)
[2023-08-17] MEDS: DESENEX/MITRAZOL/ZEASORB 1 APPLIC TOPICAL (09:08)
--- NOTE | 2023-08-17 11:24 | W.PN.CD ---
Addendum entered and electronically signed by Cedric Williamson MD 08/17/23 12:04:
-
Discussed with Dr. Madrigal. Will also dose metolazone this afternoon
Addendum entered and electronically signed by Cedric Williamson MD 08/17/23 12:01:
-
-
Weight stable 08/16-08/17/2023
will order 10 of Zaroxolyn for 08/18/2023 prior to AM Lasix
-
-
Original Note:
Today's Communication / Plan
-
Continue IV diuresis
Decrease rate control meds
Impression / Plan
-
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
Acute on chronic HFpEF
- Clinically and by echo more right heart failure than left heart failure
- high risk situation with CKD4 and cardiorenal syndrome: close monitoring of labs and tele as we continue IV diuresis
- We think goal weight is ~180 lbs / 81.8 kg
- Admit weight about 90.4 kg. Weight today 08/17/2023 87.1 kg
- Still with lots of edema
- continue IV Lasix 80mg IV BID
- At some point we may need to slow diuresis
Hypokalemia from diuresis
- Monitor and replete as needed
- Consider increase Aldactone but reluctant with her degree of CKD
CKD4 - acute on chronic.
- improving with diuresis
- has declined nephrology evaluation in the past
MVR - mechanical in 2008, stable on echo, chronic warfarin
TAVR - 09/2022, normally functioning on TAVR in eco this admit
SLOW permanent Afib
- In past she was hard to rate control not the case now and given the frequent V pace
- Normal LVEF with HFpEF
- Will stay off digoxin
- Will further decrease metoprolol and may be able to decrease diltiazem
CAD - s/p CABG, no angina, patent grafts prior to TAVR. No ASA (prior SDH)
HLD - stable on Lipitor, continue.
Prior primary VR arrest => Medtronic single chamber device.
Severe TR preceded ICD lead placement
Subjective: No CP. No dyspnea at rest.
Data :
Echo 08/15/2023: LVEF 55-60%, dilated RV with reduced RV syst fxn, evidence of RV vol/pressure overload, mech MVR fine (mean 2), TAVR fine (mean 11, no AI). Severe TR (note that severe TR preceded ICD implant). Ext PASP 28 and est RA 15. Similar to
prior echo 11/23/2022 but on prior echo est PASP 55 and LA was enlarged
Cath 08/2022:
[place] CAD as described with patent bypass grafts including SOMMERS-LAD, SVG-OM1-OM2, and SVG-RCA
Findings are similar to the prior study from 09/21/2020
She will have a pre TAVR chest CTA once her renal fun
Physical Exam
Vital Signs/Labs
Vital Signs
Temp Pulse Resp BP Pulse Ox
97.6 F 57 17 124/65 97
08/17/23 07:00 08/17/23 09:06 08/17/23 07:00 08/17/23 09:06 08/17/23 07:00
08/16/23 08/17/23 08/18/23
06:59 06:59 06:59
Actual Weight 87.09 kg 87.09 kg
08/14/23 03:24
08/17/23 06:04
PT 35.2 Sec (11.4-14.6) H 08/17/23 06:04
INR 3.44 08/17/23 06:04
APTT 49.6 Sec (23.4-35.0) H 08/12/23 16:13
Magnesium 2.4 mg/dl (1.6-2.3) H 08/13/23 04:06
Triglycerides 78 mg/dl (10-149) 08/13/23 04:06
LDL Cholesterol, Calc 56 mg/dl 08/13/23 04:06
VLDL Cholesterol, Calc 15 mg/dl (0-30) 08/13/23 04:06
HDL Cholesterol 27 mg/dl 08/13/23 04:06
Free T4 1.46 ng/dl (0.78-2.19) 08/13/23 04:06
Digoxin 0.8 ng/ml (0.8-2.0) 08/13/23 04:06
08/12/23
15:45
Amf-L-Lufcupwtwzk Pept 1470
Physical Exam
Constitutional: No acute distress
Cardiovascular: Rhythm/rate is irregular, Pedal edema present (as is upper extremity edema), JVD present, S1S2 is normal (but mech s1) and Rub absent
Respiratory: Respiratory effort normal and Lungs clear to auscul.
GI: Soft and Distention absent
Neuro/Psych: Alert
Data Reviewed
-
Date of Service: August 17, 2023
[2023-08-17 12:13] LABS: Glucose - Point of Care 220 mg/dl (70-99)
--- NOTE | 2023-08-17 12:26 | W.PN.HOSP.TC ---
Today's Communication/Plan
-
Patient would need several more days of IV diuresis prior to discharge as she is still markedly volume overloaded.
Assessment / Plan
Assessment / Plan
77-year-old female with history of CHF was treated at [facility] for CHF and was discharged to a local rehab.� Patient still had a lot of edema which got worse which prompted her to come to [facility].� Patient has shortness
of breath and feels really tired and puffy all over.� Clothes not fitting her anymore.� Denies any chest pain
On examination
AA and oriented
Cardiovascular system S1-S2 irregular, systolic murmur at right heart border
Chest Decreased , but CTA
Abdomen soft and nontender
4+ pitting edema bilateral upper extremities and lower extremities, edema of hands
Gouty tophi on the index finger on the right
# Acute on chronic heart failure with PEF
Also suspect right heart failure-Type unknown
Patient denies sleep apnea but-may need a sleep study given findings on the echo.
Diuresis Lasix 80 mg IV twice daily . One dose of Zaroxolyn again today.
Follow creatinine closely with CKD
Diuresis may be difficult with pulmonary hypertension
Troponin negative for ischemia
Intake output charting and daily weights
Continue metoprolol
Not on ROSALIND inhibitor likely secondary to elevated creatinine.
Likely not on SGLT2 inhibitors because of her creatinine fluctuation.� To consider this eventually for goal-directed therapy.
Echo 08/15/2023-normal LV systolic function. Dilated RV. Normal RV contractility. Septal flattening in diastole consistent with RV volume overload. Seen Bowen mechanical mitral valve replacement well-seated. TAVR well-seated. Severely dilated
atrium. Severe TR. Pulmonary pressure 28 mmHg.
# Elevated uric acid level with gouty Tophi-started allopurinol. Discussed with the patient.
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
TAVR was on October 05, 2022.
Severe TR noted
# History of V-fib cardiac arrest requiring ICD placement
# Coronary artery disease with CABG in 2008
# Permanent atrial fibrillation-continue Cardizem and metoprolol for rate control-dose
Metoprolol dose decreased from 100 mg twice daily to 25 mg twice daily
Dig stopped
On Coumadin for anticoagulation
Hold Coumadin again on 08/17/2023 as INR is elevated above 3
# Acute on CKD stage IV
Follow creatinine with diuresis
Check urine analysis and urine sodium
If patient continues to be volume overloaded and creatinine worsening may need nephrology evaluation
# Chronic right bundle branch block
# Hypertension
Follow blood pressure on metoprolol,Aldactone
May drop with diuresis given pulmonary hypertension
# Hyperlipidemia-continue statin
# Diabetes type 2 Accu-Cheks and sliding scale coverage
Patient on Prandin
Hemoglobin A1c 7.5
# Elevated LFTs likely secondary to hepatic congestion.
Follow with diuresis
# Mild hyponatremia-from fluid overload hypervolemic in nature
Will improve with diuresis
# History of subdural hemorrhage
#Elevated TSH with normal T4. Needs repeat
# Obesity
# DNR per D/W patient and daughters at bed side
D/W nursing
D/W Cards
Anticipated Discharge: > 48 hours
Subjective/Interval History
-
Date of Service: August 17, 2023
Objective Data
-
Labs:
Laboratory Results
08/17/23
06:04
PT 35.2 H
INR 3.44
Sodium 131 L
Potassium 3.8
Chloride 91 L
Carbon Dioxide 26
BUN 77 H
Creatinine 2.1 H
Glucose 92
Calcium 9.0
Vital Signs:
Vital Signs
Temp Pulse Resp BP Pulse Ox
97.4 F 51 17 129/59 97
08/17/23 12:18 08/17/23 12:18 08/17/23 12:18 08/17/23 12:18 08/17/23 07:00
I&O
08/16/23 08/17/23 08/18/23
06:59 06:59 06:59
Intake Total 480 / 480 960 / 960
Output Total 625 / 625
Balance -145 / -145 960 / 960
[2023-08-17] MEDS: NOVOLOG FLEXPEN-LOW RESISTANCE 2 UNITS SC (14:02)
--- NOTE | 2023-08-17 15:44 | CM ---
pstient with chf.still on iv lasix bid.sating at 98% on ra.spoke with attending.patient will need 2 more days of iv diuresis before discharge patient has been accepted for snf rehab at [facility].patient and are very happy with
facility accepting patient.i spoke with adm to give them an update as to when patient is expected to be discharged.
Plan is to discharge to [facility] when stable for discharge.
[2023-08-17] MEDS: ZAROXOLYN 10 MG PO (16:11)
[2023-08-17 16:56] LABS: Glucose - Point of Care 180 mg/dl (70-99)
[2023-08-17] MEDS: LIPITOR 40 MG PO (17:27)
[2023-08-17] MEDS: NOVOLOG FLEXPEN-LOW RESISTANCE 1 UNITS SC (17:49)
[2023-08-17 21:10] LABS: Glucose - Point of Care 122 mg/dl (70-99)
[2023-08-17] MEDS: DESENEX/MITRAZOL/ZEASORB TOPICAL (21:13)
[2023-08-17] MEDS: TOPROL XL 25 MG PO (21:16)
[2023-08-18 03:48] VITALS: BP 125/62
[2023-08-18 05:43] VITALS: BMI 32.6
[2023-08-18 07:20] VITALS: BP 133/73
--- NOTE | 2023-08-18 07:23 | W.PN.CD ---
Today's Communication / Plan
-
- Continue Lasix 80 mg IV BID.
- Receiving a dose of metolazone 10 mg this a.m.; will place on 5 mg daily starting tomorrow.
Impression / Plan
-
77 yo female with chronic HFPEF, CKD4, permanent A fib, mechanical MVR on warfarin admitted with acute on chronic HFPEF.� She has significant edema and weight gain after recent admit at [place]
Acute on chronic HFpEF
- Clinically and by echo more right heart failure than left heart failure
- high risk situation with CKD4 and cardiorenal syndrome: close monitoring of labs and tele as we continue IV diuresis
- We think goal weight is ~180 lbs / 81.8 kg
- Admit weight about 90.4 kg; weight 08/17/2023 was 87.1 kg, today's weight is pending.
- Still with lots of edema
- Continue Lasix 80 mg IV BID.
- Receiving a dose of metolazone 10 mg this a.m.; will place on 5 mg daily starting tomorrow.
Hypokalemia from diuresis
- Monitor and replete as needed
- Consider increase Aldactone but reluctant with her degree of CKD
CKD4 - acute on chronic.
- Creatinine appears to be at relative baseline.
- has declined nephrology evaluation in the past
MVR - mechanical in 2008, stable on echo, chronic warfarin
TAVR - 09/2022, normally functioning on TAVR in [facility] this admit
SLOW permanent Afib
- In past she was hard to rate control not the case now and given the frequent V pace
- Normal LVEF with HFpEF
- Will stay off digoxin
-Continue current doses of Cardizem CD and metoprolol succinate.
CAD - s/p CABG, no angina, patent grafts prior to TAVR. No ASA (prior SDH)
HLD - stable on Lipitor, continue.
Prior primary VR arrest => Medtronic single chamber device.
Severe TR preceded ICD lead placement
Subjective: No major events overnight. Still with some shortness of breath, but slowly improving.
Data :
Echo 08/15/2023: LVEF 55-60%, dilated RV with reduced RV syst fxn, evidence of RV vol/pressure overload, [facility] MVR fine (mean 2), TAVR fine (mean 11, no AI). Severe TR (note that severe TR preceded ICD implant). Ext PASP 28 and est RA 15. Similar to
prior echo 11/23/2022 but on prior echo est PASP 55 and LA was enlarged
Cath 08/2022:
[place] CAD as described with patent bypass grafts including SOMMERS-LAD, SVG-OM1-OM2, and SVG-RCA
Findings are similar to the prior study from 09/21/2020
She will have a pre TAVR chest CTA once her renal fun
Physical Exam
Vital Signs/Labs
Vital Signs
Temp Pulse Resp BP Pulse Ox
97.8 F 52 20 125/62 97
08/18/23 03:48 08/18/23 03:48 08/18/23 03:48 08/18/23 03:48 08/18/23 03:48
08/17/23 08/18/23 08/19/23
06:59 06:59 06:59
Actual Weight 87.09 kg 85.956 kg
08/14/23 03:24
PT 35.2 Sec (11.4-14.6) H 08/17/23 06:04
INR 3.44 08/17/23 06:04
APTT 49.6 Sec (23.4-35.0) H 08/12/23 16:13
Magnesium 2.4 mg/dl (1.6-2.3) H 08/13/23 04:06
Triglycerides 78 mg/dl (10-149) 08/13/23 04:06
LDL Cholesterol, Calc 56 mg/dl 08/13/23 04:06
VLDL Cholesterol, Calc 15 mg/dl (0-30) 08/13/23 04:06
HDL Cholesterol 27 mg/dl 08/13/23 04:06
Free T4 1.46 ng/dl (0.78-2.19) 08/13/23 04:06
Digoxin 0.8 ng/ml (0.8-2.0) 08/13/23 04:06
08/12/23
15:45
Sib-N-Jfeuxzndfed Pept 1470
Physical Exam
Constitutional: No acute distress and Comfortable
EENT: Anicteric
Cardiovascular: Rhythm & rate is regular, Pedal edema present (2+), Systolic murmur present (2/6) and S1S2 is normal
Respiratory: Respiratory effort normal and Lungs clear to auscul.
GI: Soft
Neuro/Psych: AO x 3
Other: Skin (Warm, dry, intact)
Data Reviewed
-
Date of Service: August 18, 2023
EKG: Tracing Personally Visualized and interpreted (Telemetry: A-fib/V paced)
Medical Tests (PFT, Pathology etc): Discussed with Patient
Labs: Labs Reviewed by me
--- NOTE | 2023-08-18 07:39 | W.PN.HOSP.TC ---
Today's Communication/Plan
-
cont diuresis as per cardio
resume warfarin
daily INR checks
I/O daily weight
Assessment / Plan
Assessment / Plan
Physical Exam
Genera: no acute distress appears comfortable at this time.
Cardiovascular system S1-S2 irregular, systolic murmur at right heart border
Pulm: clear to auscultation though diminished breath sounds
Abdomen: soft and nontender
Ext: 2+ pitting edema bilateral upper extremities and lower extremities, edema of hands, Gouty tophi on the index finger on the right
Neuro: AOx3
77-year-old female with history of CHF was treated at [facility] for CHF and was discharged to a local rehab.� Patient still had a lot of edema which got worse which prompted her to come to [facility].� Patient has shortness
of breath and feels really tired and puffy all over.� Clothes not fitting her anymore.� Denies any chest pain
# Acute on chronic heart failure with PEF
Also suspect right heart failure-Type unknown
Patient denies sleep apnea but-may need a sleep study given findings on the echo.
Diuresis Lasix 80 mg IV twice daily . One dose of Zaroxolyn again today.
Follow creatinine closely with CKD
Diuresis may be difficult with pulmonary hypertension
Troponin negative for ischemia
Intake output charting and daily weights
Continue metoprolol
Not on ROSALIND inhibitor likely secondary to elevated creatinine.
Likely not on SGLT2 inhibitors because of her creatinine fluctuation.� To consider this eventually for goal-directed therapy.
Echo 08/15/2023-normal LV systolic function. Dilated RV. Normal RV contractility. Septal flattening in diastole consistent with RV volume overload. Seen Bowen mechanical mitral valve replacement well-seated. TAVR well-seated. Severely dilated
atrium. Severe TR. Pulmonary pressure 28 mmHg.
# Elevated uric acid level with gouty Tophi-started on allopurinol continue
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
TAVR was on October 05, 2022.
Severe TR noted
# History of V-fib cardiac arrest requiring ICD placement
# Coronary artery disease with CABG in 2008
# Permanent atrial fibrillation-continue Cardizem and metoprolol for rate control-dose
Metoprolol dose decreased from 100 mg twice daily to 25 mg twice daily
Dig stopped
On Coumadin for anticoagulation
Coumadin held briefly due to supratherapeutic INR>3
08/18 INR improved at goal 2-3, home warfarin resumed. 2.5 mg once dose
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
Cr stable 2.1 on diuresis as per cardio
# Chronic right bundle branch block
# Hypertension
Follow blood pressure on metoprolol,Aldactone
# Hyperlipidemia-continue statin
# Diabetes type 2 Accu-Cheks and sliding scale coverage
Patient on Prandin
Hemoglobin A1c 7.5
# Mild Elevated LFTs likely secondary to hepatic congestion.
# Mild hyponatremia-from fluid overload hypervolemic in nature
Na stable 130s
# History of subdural hemorrhage
#Elevated TSH with normal T4
outpt repeat in 1 month
# Obesity
# DNR
Discussed with patient and her .
I spent a total of 50 minutes with the patient or on the floor. More than 50% of this time involved counseling and coordination of care.
Anticipated Discharge: 24 - 48 hours
Subjective/Interval History
-
Date of Service: August 18, 2023
weight improving. Denies new acute issues. Swelling however persists upper and lower ext's. present during evaluation.
Objective Data
-
Labs:
Laboratory Results
08/18/23
06:38
PT Pending
INR Pending
Sodium Pending
Potassium Pending
Chloride Pending
Carbon Dioxide Pending
BUN Pending
Creatinine Pending
Glucose Pending
Calcium Pending
Vital Signs:
Vital Signs
Temp Pulse Resp BP Pulse Ox
97.8 F 52 20 125/62 97
08/18/23 03:48 08/18/23 03:48 08/18/23 03:48 08/18/23 03:48 08/18/23 03:48
I&O
08/17/23 08/18/23 08/19/23
06:59 06:59 06:59
Intake Total 960 / 960 600 / 600
Balance 960 / 960 600 / 600
[2023-08-18 08:15] LABS: Glucose - Point of Care 97 mg/dl (70-99)
[2023-08-18 08:27] LABS: INR 2.81; PT 29.5 Sec (11.4-14.6)
[2023-08-18 08:54] LABS: Blood Urea Nitrogen 80 mg/dl (7-17); Calcium 9.3 mg/dl (8.4-10.2); Carbon Dioxide 27 mmol/L (22-30); Chloride 91 mmol/L (98-107); Estimated Creatinine Clearance 23 ml/min; Glucose 87 mg/dl (70-99); Potassium 4.1 mmol/L (3.5-5.1); Sodium 130 mmol/L (135-145); eGFR 23.53
[2023-08-18] MEDS: NOVOLOG FLEXPEN-LOW RESISTANCE SC (10:46)
[2023-08-18] MEDS: PRANDIN PO (11:02)
[2023-08-18] MEDS: KCL 40 MEQ PO ×2 (11:13→17:19)
[2023-08-18] MEDS: TOPROL XL 25 MG PO ×2 (11:13→20:50)
[2023-08-18] MEDS: DESENEX/MITRAZOL/ZEASORB 1 APPLIC TOPICAL ×2 (11:14→20:51)
[2023-08-18] MEDS: ALDACTONE 12.5 MG PO (11:14)
[2023-08-18] MEDS: CARDIZEM CD 240 MG PO (11:14)
[2023-08-18] MEDS: ZYLOPRIM 100 MG PO (11:14)
[2023-08-18] MEDS: ZAROXOLYN 10 MG PO (11:36)
[2023-08-18 11:45] VITALS: BP 145/80
[2023-08-18 12:14] LABS: Glucose - Point of Care 178 mg/dl (70-99)
[2023-08-18] MEDS: LASIX 80 MG IV ×2 (12:53→17:19)
[2023-08-18] MEDS: PRANDIN 0.5 MG PO ×2 (12:53→17:19)
[2023-08-18] MEDS: NOVOLOG FLEXPEN-LOW RESISTANCE 1 UNITS SC ×2 (12:54→17:20)
[2023-08-18 15:52] VITALS: BP 124/61
--- NOTE | 2023-08-18 16:23 | CHAP ---
Ms. Morrowruthkatty had requested a showcase maker visit. Her was visiting and we prayed together, thanking God and asking His blessings.
[2023-08-18 17:13] LABS: Glucose - Point of Care 177 mg/dl (70-99)
[2023-08-18] MEDS: COUMADIN 2.5 MG PO (17:18)
[2023-08-18] MEDS: LIPITOR 40 MG PO (17:18)
[2023-08-18 19:35] VITALS: BP 119/66
[2023-08-18 21:28] LABS: Glucose - Point of Care 204 mg/dl (70-99)
[2023-08-18 23:35] VITALS: BP 129/59
[2023-08-19 03:43] VITALS: BP 121/80
[2023-08-19 04:51] VITALS: BMI 32.5
[2023-08-19 07:49] LABS: Glucose - Point of Care 99 mg/dl (70-99)
[2023-08-19] MEDS: PRANDIN 0.5 MG PO ×3 (07:49→15:29)
[2023-08-19] MEDS: NOVOLOG FLEXPEN-LOW RESISTANCE SC (07:49)
[2023-08-19] MEDS: KCL 40 MEQ PO ×2 (07:50→15:29)
--- NOTE | 2023-08-19 07:50 | W.PN.HOSP.TC ---
Today's Communication/Plan
-
cont diuresis as per cardio
cont warfarin
daily INR checks
I/O daily weight
Assessment / Plan
Assessment / Plan
Physical Exam
Genera: no acute distress appears comfortable at this time.
Cardiovascular system S1-S2 irregular, systolic murmur at right heart border
Pulm: clear to auscultation though diminished breath sounds
Abdomen: soft and nontender
Ext: 2+ pitting edema bilateral upper extremities and lower extremities, edema of hands, Gouty tophi on the index finger on the right
Neuro: AOx3
77-year-old female with history of CHF was treated at [facility] for CHF and was discharged to a local rehab.� Patient still had a lot of edema which got worse which prompted her to come to [facility].� Patient has shortness
of breath and feels really tired and puffy all over.� Clothes not fitting her anymore.� Denies any chest pain
# Acute on chronic heart failure with PEF
Also suspect right heart failure-Type unknown
Patient denies sleep apnea but-may need a sleep study given findings on the echo.
Diuresis Lasix 80 mg IV twice daily . One dose of Zaroxolyn again today.
Follow creatinine closely with CKD
Diuresis may be difficult with pulmonary hypertension
Troponin negative for ischemia
Intake output charting and daily weights
Continue metoprolol
Not on ROSALIND inhibitor likely secondary to elevated creatinine.
Likely not on SGLT2 inhibitors because of her creatinine fluctuation.� To consider this eventually for goal-directed therapy.
Echo 08/15/2023-normal LV systolic function. Dilated RV. Normal RV contractility. Septal flattening in diastole consistent with RV volume overload. Seen Bowen mechanical mitral valve replacement well-seated. TAVR well-seated. Severely dilated
atrium. Severe TR. Pulmonary pressure 28 mmHg.
# Elevated uric acid level with gouty Tophi-started on allopurinol continue
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
TAVR was on October 05, 2022.
Severe TR noted
# History of V-fib cardiac arrest requiring ICD placement
# Coronary artery disease with CABG in 2008
# Permanent atrial fibrillation-continue Cardizem and metoprolol for rate control-dose
Metoprolol dose decreased from 100 mg twice daily to 25 mg twice daily
Dig stopped
On Coumadin for anticoagulation
Coumadin held briefly due to supratherapeutic INR>3
08/18 INR improved at goal 2-3, home warfarin resumed
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
Cr stable 2.1 on diuresis as per cardio
# Chronic right bundle branch block
# Hypertension
Follow blood pressure on metoprolol,Aldactone
# Hyperlipidemia-continue statin
# Diabetes type 2 Accu-Cheks and sliding scale coverage
Patient on Prandin
Hemoglobin A1c 7.5
# Mild Elevated LFTs likely secondary to hepatic congestion.
# Mild hyponatremia-from fluid overload hypervolemic in nature
Na stable 130s
# History of subdural hemorrhage
#Elevated TSH with normal T4
outpt repeat in 1 month
# Obesity
# DNR
PT/OT appreciated SNF rehab
Discussed with patient and her .
I spent a total of 50 minutes with the patient or on the floor. More than 50% of this time involved counseling and coordination of care.
Anticipated Discharge: 24 - 48 hours
Subjective/Interval History
-
Date of Service: August 19, 2023
Not much change in weight compared to yesterday. Otherwise patient in no acute distress sitting up comfortably in chair. Anxious with regards to future prospect discharge but redirectable. Naga present during evaluation.
Objective Data
-
Labs:
Laboratory Results
08/19/23 08/19/23
06:27 07:34
PT Cancelled Pending
INR Cancelled Pending
Sodium Pending
Potassium Pending
Chloride Pending
Carbon Dioxide Pending
BUN Pending
Creatinine Pending
Glucose Pending
Calcium Pending
Vital Signs:
Vital Signs
Temp Pulse Resp BP Pulse Ox
97.5 F 52 16 121/80 97
08/19/23 03:43 08/19/23 03:43 08/19/23 03:43 08/19/23 03:43 08/19/23 03:43
I&O
08/18/23 08/19/23 08/20/23
06:59 06:59 06:59
Intake Total 600 / 600 840 / 840
Output Total 100 / 100
Balance 600 / 600 740 / 740
[2023-08-19] MEDS: ZAROXOLYN 5 MG PO ×2 (07:53→15:33)
[2023-08-19] MEDS: CARDIZEM CD 240 MG PO (07:54)
[2023-08-19] MEDS: TOPROL XL 25 MG PO ×2 (07:54→19:50)
[2023-08-19] MEDS: ZYLOPRIM 100 MG PO (07:54)
[2023-08-19] MEDS: LASIX 80 MG IV ×2 (07:55→15:29)
[2023-08-19 07:56] LABS: INR 2.97; PT 30.8 Sec (11.4-14.6)
[2023-08-19] MEDS: ALDACTONE 12.5 MG PO (07:58)
[2023-08-19] MEDS: DESENEX/MITRAZOL/ZEASORB 1 APPLIC TOPICAL ×2 (07:59→19:50)
[2023-08-19 08:01] LABS: Blood Urea Nitrogen 77 mg/dl (7-17); Carbon Dioxide 28 mmol/L (22-30); Chloride 94 mmol/L (98-107); Estimated Creatinine Clearance 22 ml/min; Glucose 96 mg/dl (70-99); Potassium 4.1 mmol/L (3.5-5.1); Sodium 128 mmol/L (135-145); eGFR 22.25
[2023-08-19 08:18] VITALS: BP 113/58
[2023-08-19 09:23] LABS: TSH Reflex To Free T4 8.21 uIU/ml (0.47-4.68)
[2023-08-19 09:53] LABS: Free T4 1.06 ng/dl (0.78-2.19)
[2023-08-19 11:53] LABS: Glucose - Point of Care 274 mg/dl (70-99)
[2023-08-19 12:19] VITALS: BP 110/58
[2023-08-19] MEDS: NOVOLOG FLEXPEN-LOW RESISTANCE 3 UNITS SC (12:19)
--- NOTE | 2023-08-19 15:22 | W.PN.CD ---
Today's Communication / Plan
-
- Continue Lasix 80 mg IV BID.
- Will give metolazone 5 mg twice daily today.
- Will reassess tomorrow.
Impression / Plan
-
77 yo female with chronic HFPEF, CKD4, permanent A fib, mechanical MVR on warfarin admitted with acute on chronic HFPEF.� She has significant edema and weight gain after recent admit at [place]
Acute on chronic HFpEF
- Clinically and by echo more right heart failure than left heart failure
- high risk situation with CKD4 and cardiorenal syndrome: close monitoring of labs and tele as we continue IV diuresis
- We think goal weight is ~180 lbs / 81.8 kg
- Admit weight about 90.4 kg; weight 08/17/2023 was 87.1 kg, today's weight is pending.
- Still with lots of edema
- Continue Lasix 80 mg IV BID.
- Will give metolazone 5 mg twice daily today.
- Will reassess tomorrow.
Hypokalemia from diuresis
- Monitor and replete as needed.
- Consider increase Aldactone but reluctant with her degree of CKD
CKD4 - acute on chronic.
- Creatinine remains at relative baseline.
- has declined Nephrology evaluation in the past
MVR - mechanical in 2008, stable on echo, chronic warfarin
TAVR - 09/2022, normally functioning on TAVR in [facility] this admit
SLOW permanent Afib
- In past she was hard to rate control not the case now and given the frequent V pace
- Normal LVEF with HFpEF
- Will stay off digoxin
-Continue current doses of Cardizem CD and metoprolol succinate.
CAD - s/p CABG, no angina, patent grafts prior to TAVR. No ASA (prior SDH)
HLD - stable on Lipitor, continue.
Prior primary VR arrest => Medtronic single chamber device.
Severe TR preceded ICD lead placement
Subjective: No major events overnight. Shortness of breath improving.
Data :
Echo 08/15/2023: LVEF 55-60%, dilated RV with reduced RV syst fxn, evidence of RV vol/pressure overload, mech MVR fine (mean 2), TAVR fine (mean 11, no AI). Severe TR (note that severe TR preceded ICD implant). Ext PASP 28 and est RA 15. Similar to
prior echo 11/23/2022 but on prior echo est PASP 55 and LA was enlarged
Cath 08/2022:
[place] CAD as described with patent bypass grafts including SOMMERS-LAD, SVG-OM1-OM2, and SVG-RCA
Findings are similar to the prior study from 09/21/2020
She will have a pre TAVR chest CTA once her renal fun
Physical Exam
Vital Signs/Labs
Vital Signs
Temp Pulse Resp BP Pulse Ox
97.4 F 51 16 110/58 98
08/19/23 12:19 08/19/23 12:19 08/19/23 12:19 08/19/23 12:19 08/19/23 12:19
08/18/23 08/19/23 08/20/23
06:59 06:59 06:59
Actual Weight 85.956 kg 85.842 kg
08/14/23 03:24
08/19/23 06:27
PT 30.8 Sec (11.4-14.6) H 08/19/23 07:34
INR 2.97 08/19/23 07:34
APTT 49.6 Sec (23.4-35.0) H 08/12/23 16:13
Magnesium 2.4 mg/dl (1.6-2.3) H 08/13/23 04:06
Triglycerides 78 mg/dl (10-149) 08/13/23 04:06
LDL Cholesterol, Calc 56 mg/dl 08/13/23 04:06
VLDL Cholesterol, Calc 15 mg/dl (0-30) 08/13/23 04:06
HDL Cholesterol 27 mg/dl 08/13/23 04:06
Free T4 1.06 ng/dl (0.78-2.19) 08/19/23 06:27
Digoxin 0.8 ng/ml (0.8-2.0) 08/13/23 04:06
08/12/23
15:45
Opx-A-Hqxoqmpfdoz Pept 1470
Physical Exam
Constitutional: No acute distress and Comfortable
EENT: Anicteric
Cardiovascular: Rhythm & rate is regular, Pedal edema present (Trace), Systolic murmur present (2/6) and S1S2 is normal (Mechanical S1/S2)
Respiratory: Respiratory effort normal and Lungs clear to auscul.
GI: Soft
Neuro/Psych: AO x 3
Other: Skin (Warm, dry, intact)
Data Reviewed
-
Date of Service: August 19, 2023
EKG: Tracing Personally Visualized and interpreted (Telemetry: A-fib, V paced)
Medical Tests (PFT, Pathology etc): Discussed with Patient and Discussed with Family ( at bedside)
Labs: Labs Reviewed by me
[2023-08-19 15:27] VITALS: BP 123/52
[2023-08-19 15:48] VITALS: BMI 32.7
[2023-08-19] MEDS: TYLENOL 650 MG PO (16:33)
[2023-08-19 16:34] LABS: Glucose - Point of Care 269 mg/dl (70-99)
[2023-08-19] MEDS: NOVOLOG FLEXPEN-LOW RESISTANCE 269 UNITS SC (16:34)
[2023-08-19] MEDS: COUMADIN 2.5 MG PO (17:13)
[2023-08-19] MEDS: LIPITOR 40 MG PO (17:13)
[2023-08-19 19:25] VITALS: BP 124/62
[2023-08-19 21:28] LABS: Glucose - Point of Care 116 mg/dl (70-99)
[2023-08-19] MEDS: AMBIEN 5 MG PO (21:57)
[2023-08-19 23:33] VITALS: BP 127/70
[2023-08-20] VITALS (7 sets, daily range): BP systolic 116–147; BP diastolic 56–89; PULSE 56; O2SAT 98; BMI 32.3
[2023-08-20 06:41] LABS: INR 3.29; PT 33.4 Sec (11.4-14.6)
[2023-08-20 06:58] LABS: Blood Urea Nitrogen 86 mg/dl (7-17); Calcium 9.3 mg/dl (8.4-10.2); Carbon Dioxide 27 mmol/L (22-30); Chloride 92 mmol/L (98-107); Estimated Creatinine Clearance 22 ml/min; Glucose 84 mg/dl (70-99); Magnesium 2.5 mg/dl (1.6-2.3); Phosphorus 3.7 mg/dl (2.5-4.5); Potassium 4.3 mmol/L (3.5-5.1); Sodium 131 mmol/L (135-145); eGFR 22.25
--- NOTE | 2023-08-20 07:01 | W.PN.HOSP.TC ---
Today's Communication/Plan
-
cont diuresis as per cardio
monitor renal function
discharge planning SNF rehab
Assessment / Plan
Assessment / Plan
Physical Exam
Genera: no acute distress appears comfortable at this time.
Cardiovascular system S1-S2 irregular, systolic murmur at right heart border
Pulm: clear to auscultation though diminished breath sounds
Abdomen: soft and nontender
Ext: edema swelling upper lower ext's improving
Neuro: AOx3
77-year-old female with history of CHF was treated at [facility] for CHF and was discharged to a local rehab.� Patient still had a lot of edema which got worse which prompted her to come to [facility].� Patient has shortness
of breath and feels really tired and puffy all over.� Clothes not fitting her anymore.� Denies any chest pain
# Acute on chronic heart failure with PEF
Also suspect right heart failure-Type unknown
Patient denies sleep apnea but-may need a sleep study given findings on the echo.
Diuresis Lasix 80 mg IV twice daily. Zaroxolyn as per cardio
Follow creatinine closely with CKD, stable at this time
Troponin negative for ischemia
Intake output charting and daily weights
Continue metoprolol
Not on ROSALIND inhibitor likely secondary to elevated creatinine.
SGLT2 inhibitor cost prohibitive
Echo 08/15/2023-normal LV systolic function. Dilated RV. Normal RV contractility. Septal flattening in diastole consistent with RV volume overload. Seen Bowen mechanical mitral valve replacement well-seated. TAVR well-seated. Severely dilated
atrium. Severe TR. Pulmonary pressure 28 mmHg.
# Elevated uric acid level with gouty Tophi-started on allopurinol continue
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
TAVR was on October 05, 2022.
Severe TR noted
# History of V-fib cardiac arrest requiring ICD placement
# Coronary artery disease with CABG in 2008
# Permanent atrial fibrillation-continue Cardizem and metoprolol for rate control-dose
Metoprolol dose decreased from 100 mg twice daily to 25 mg twice daily
Dig stopped
On Coumadin for anticoagulation
Coumadin held briefly due to supratherapeutic INR>3
08/18 INR improved at goal 2-3, home warfarin resumed
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
Cr stable 2.1 on diuresis as per cardio
# Chronic right bundle branch block
# Hypertension
Follow blood pressure on metoprolol,Aldactone
# Hyperlipidemia-continue statin
# Diabetes type 2 Accu-Cheks and sliding scale coverage
Patient on Prandin
Hemoglobin A1c 7.5
# Mild Elevated LFTs likely secondary to hepatic congestion.
# Mild hyponatremia-from fluid overload hypervolemic in nature
Na stable 130s
# History of subdural hemorrhage
#Elevated TSH with normal T4
outpt repeat in 1 month
# Obesity
# DNR
PT/OT appreciated SNF rehab
Discussed with patient and her .
I spent a total of 50 minutes with the patient or on the floor. More than 50% of this time involved counseling and coordination of care.
Anticipated Discharge: 24 - 48 hours
Subjective/Interval History
-
Date of Service: August 20, 2023
No acute distress sitting up comfortably in chair.
Objective Data
-
Labs:
Laboratory Results
08/20/23
06:04
PT 33.4 H
INR 3.29
Sodium 131 L
Potassium 4.3
Chloride 92 L
Carbon Dioxide 27
BUN 86 H
Creatinine 2.2 H
Glucose 84
Calcium 9.3
Vital Signs:
Vital Signs
Temp Pulse Resp BP Pulse Ox
97.9 F 51 16 127/60 95
08/20/23 03:05 08/20/23 03:05 08/20/23 03:05 08/20/23 03:05 08/20/23 03:05
I&O
08/19/23 08/20/23 08/21/23
06:59 06:59 06:59
Intake Total 840 / 840 720 / 720
Output Total 100 / 100
Balance 740 / 740 720 / 720
[2023-08-20 08:14] LABS: Glucose - Point of Care 100 mg/dl (70-99)
[2023-08-20] MEDS: NOVOLOG FLEXPEN-LOW RESISTANCE SC ×2 (08:25→16:37)
[2023-08-20] MEDS: KCL 40 MEQ PO ×2 (08:30→15:46)
[2023-08-20] MEDS: PRANDIN 0.5 MG PO ×3 (08:30→15:48)
[2023-08-20] MEDS: ZYLOPRIM 100 MG PO (08:30)
[2023-08-20] MEDS: ALDACTONE 12.5 MG PO (08:30)
[2023-08-20] MEDS: ZAROXOLYN 5 MG PO (08:30)
[2023-08-20] MEDS: LASIX 80 MG IV ×2 (08:31→16:35)
[2023-08-20] MEDS: DESENEX/MITRAZOL/ZEASORB 1 APPLIC TOPICAL ×2 (08:32→21:09)
[2023-08-20] MEDS: TOPROL XL PO (08:42)
[2023-08-20] MEDS: CARDIZEM CD PO (08:42)
--- NOTE | 2023-08-20 08:58 | W.PN.CD ---
Today's Communication / Plan
-
Increase Zaroxolyn to 10 BID for next 3 days then likely back to 5 a day in AM
Increase Aldactone as she is requiring so much KCl
- We will need to assess BMP serially in followup as outpatinet to assure she is truly able to tolerate given her CKD (high risk)
Heart rate still slow (less than 70 bpm)
- Decrease both Dilt and metoprolol by 50%
- Likely will go home OFF both dilt and metoprolol
Will check co-pay for the SGLT2-I's
Continue IV diuresis with intense monitoring
Impression / Plan
-
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
Severe acute on chronic HFpEF
- Clinically and by echo more right heart failure than left heart failure
- high risk situation with CKD4 and cardiorenal syndrome: close monitoring of labs and tele as we continue IV diuresis
- We think goal weight is ~180 lbs / 81.8 kg
- Admit weight about 90.4 kg; weight is slowly coming down (85.2 kg now
- Still with lots of edema
- Continue Lasix 80 mg IV BID.
- Will give metolazone 5 mg twice daily today.
- Will reassess tomorrow.
Hypokalemia from diuresis
- Monitor and replete as needed.
- Consider increase Aldactone but reluctant with her degree of CKD
CKD4 - acute on chronic.
- Creatinine remains at relative baseline.
- has declined Nephrology evaluation in the past
MVR - mechanical in 2008, stable on echo, chronic warfarin
TAVR - 09/2022, normally functioning on TAVR in [facility] this admit
SLOW permanent Afib
- In past she was hard to rate control not the case now and given the frequent V pace
- Normal LVEF with HFpEF
- Will stay off digoxin
-Continue current doses of Cardizem CD and metoprolol succinate.
CAD - s/p CABG, no angina, patent grafts prior to TAVR. No ASA (prior SDH)
HLD - stable on Lipitor, continue.
Prior primary VR arrest => Medtronic single chamber device.
Severe TR preceded ICD lead placement
Subjective: No major events overnight. Shortness of breath improving.
Data :
Echo 08/15/2023: LVEF 55-60%, dilated RV with reduced RV syst fxn, evidence of RV vol/pressure overload, [facility] M[facility] fine (mean 2), TAVR fine (mean 11, no AI). Severe TR (note that severe TR preceded ICD implant). Ext PASP 28 and est RA 15. Similar to
prior echo 11/23/2022 but on prior echo est PASP 55 and LA was enlarged
Cath 08/2022:
[place] CAD as described with patent bypass grafts including SOMMERS-LAD, SVG-OM1-OM2, and SVG-RCA
Findings are similar to the prior study from 09/21/2020
She will have a pre TAVR chest CTA once her renal fun
Physical Exam
Vital Signs/Labs
Vital Signs
Temp Pulse Resp BP Pulse Ox
97.9 F 54 16 138/75 95
08/20/23 03:05 08/20/23 08:31 08/20/23 03:05 08/20/23 08:31 08/20/23 03:05
08/19/23 08/20/23 08/21/23
06:59 06:59 06:59
Actual Weight 85.842 kg 85.36 kg 85.2 kg
08/14/23 03:24
08/20/23 06:04
PT 33.4 Sec (11.4-14.6) H 08/20/23 06:04
INR 3.29 08/20/23 06:04
APTT 49.6 Sec (23.4-35.0) H 08/12/23 16:13
Magnesium 2.5 mg/dl (1.6-2.3) H 08/20/23 06:04
Triglycerides 78 mg/dl (10-149) 08/13/23 04:06
LDL Cholesterol, Calc 56 mg/dl 08/13/23 04:06
VLDL Cholesterol, Calc 15 mg/dl (0-30) 08/13/23 04:06
HDL Cholesterol 27 mg/dl 08/13/23 04:06
Free T4 1.06 ng/dl (0.78-2.19) 08/19/23 06:27
Digoxin 0.8 ng/ml (0.8-2.0) 08/13/23 04:06
08/12/23
15:45
Vyd-Y-Llldfkdtvkz Pept 1470
Physical Exam
Constitutional: No acute distress
EENT: Anicteric
Cardiovascular: Systolic murmur absent, Rhythm/rate is irregular, Pedal edema present (bilat legs and LUE. But to me edema is less than when I saw her on last Aug 16) and S1S2 is normal ([facility] S1)
Respiratory: Respiratory effort normal and Lungs clear to auscul.
GI: Soft and Distention absent
Neuro/Psych: Alert
Data Reviewed
-
Date of Service: August 20, 2023
[2023-08-20] MEDS: CARDIZEM CD 120 MG PO (11:12)
[2023-08-20] MEDS: TOPROL XL 12.5 MG PO ×2 (11:17→21:11)
[2023-08-20 11:49] LABS: Glucose - Point of Care 209 mg/dl (70-99)
[2023-08-20] MEDS: NOVOLOG FLEXPEN-LOW RESISTANCE 2 UNITS SC (11:53)
[2023-08-20] MEDS: ZAROXOLYN 10 MG PO (15:46)
--- NOTE | 2023-08-20 16:26 | CM ---
updated patient and patient about cost of medication 552.14 per [employer] and patient to talk with physician. Per Chart review patient home with [facility]. Physical therapy recommendation is for SNF. CM will review with patient and
. CM will make referrals as per patient and family. CM will continue to follow for discharge planning needs.
Plan; home with [facility] vs SNF
[2023-08-20 16:37] LABS: Glucose - Point of Care 130 mg/dl (70-99)
[2023-08-20] MEDS: LIPITOR 40 MG PO (17:28)
[2023-08-20] MEDS: COUMADIN 2.5 MG PO (17:28)
[2023-08-20 21:53] LABS: Glucose - Point of Care 146 mg/dl (70-99)
[2023-08-20] MEDS: AMBIEN 5 MG PO (23:07)
[2023-08-21] VITALS (7 sets, daily range): BP systolic 112–146; BP diastolic 58–78; PULSE 69; O2SAT 96; BMI 31.7
[2023-08-21 06:26] LABS: INR 3.65; PT 36.4 Sec (11.4-14.6)
[2023-08-21 06:57] LABS: Blood Urea Nitrogen 81 mg/dl (7-17); Calcium 9.2 mg/dl (8.4-10.2); Carbon Dioxide 29 mmol/L (22-30); Chloride 91 mmol/L (98-107); Estimated Creatinine Clearance 23 ml/min; Glucose 69 mg/dl (70-99); Magnesium 2.4 mg/dl (1.6-2.3); Phosphorus 3.8 mg/dl (2.5-4.5); Potassium 4.3 mmol/L (3.5-5.1); Sodium 131 mmol/L (135-145); eGFR 23.53
--- NOTE | 2023-08-21 07:09 | W.PN.HOSP.TC ---
Today's Communication/Plan
-
cont diuresis as per cardio
monitor renal function
PT/OT
discharge planning for SNF rehab Thurs
Assessment / Plan
Assessment / Plan
Physical Exam
Genera: no acute distress appears comfortable at this time.
Cardiovascular system S1-S2 irregular, systolic murmur at right heart border
Pulm: clear to auscultation though diminished breath sounds
Abdomen: soft and nontender
Ext: edema swelling upper lower ext's improving
Neuro: AOx3
77-year-old female with history of CHF was treated at [facility] for CHF and was discharged to a local rehab.� Patient still had a lot of edema which got worse which prompted her to come to [facility].� Patient has shortness
of breath and feels really tired and puffy all over.� Clothes not fitting her anymore.� Denies any chest pain
# Acute on chronic heart failure with PEF
Also suspect right heart failure-Type unknown
Patient denies sleep apnea but-may need a sleep study given findings on the echo.
Diuresis Lasix 80 mg IV twice daily. Zaroxolyn as per cardio
Follow creatinine closely with CKD, stable at this time
Troponin negative for ischemia
Intake output charting and daily weights
Continue metoprolol
Not on ROSALIND inhibitor likely secondary to elevated creatinine.
SGLT2 inhibitor cost prohibitive
Echo 08/15/2023-normal LV systolic function. Dilated RV. Normal RV contractility. Septal flattening in diastole consistent with RV volume overload. Seen Bowen mechanical mitral valve replacement well-seated. TAVR well-seated. Severely dilated
atrium. Severe TR. Pulmonary pressure 28 mmHg.
# Elevated uric acid level with gouty Tophi-started on allopurinol continue
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
TAVR was on October 05, 2022.
Severe TR noted
# History of V-fib cardiac arrest requiring ICD placement
# Coronary artery disease with CABG in 2008
# Permanent atrial fibrillation-continue Cardizem and metoprolol for rate control-dose
Metoprolol dose decreased from 100 mg twice daily to 25 mg twice daily, eventually discontinued as per cardio
Dig stopped
On Coumadin for anticoagulation
Coumadin held briefly due to supratherapeutic INR>3
08/18 INR improved at goal 2-3, home warfarin resumed, 08/21 placed on hold again due to supratherapeutic INR
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
Cr stable 2.1 on diuresis as per cardio
# Chronic right bundle branch block
# Hypertension
Follow blood pressure on metoprolol,Aldactone
# Hyperlipidemia-continue statin
# Diabetes type 2 Accu-Cheks and sliding scale coverage
Patient on Prandin
Hemoglobin A1c 7.5
Diabetic and nutrition education provided
# Mild Elevated LFTs likely secondary to hepatic congestion.
# Mild hyponatremia-from fluid overload hypervolemic in nature
Na stable 130s
# History of subdural hemorrhage
#Elevated TSH with normal T4
outpt repeat in 1 month
# Obesity
# DNR
PT/OT appreciated SNF rehab
Discussed with patient and her .
I spent a total of 50 minutes with the patient or on the floor. More than 50% of this time involved counseling and coordination of care.
Anticipated Discharge: 24 - 48 hours
Subjective/Interval History
-
Date of Service: August 21, 2023
Swelling weight improving. Discussed with patient potential Discharge Thurs to SNF rehab.
Objective Data
-
Labs:
Laboratory Results
08/21/23
05:42
PT 36.4 H
INR 3.65
Sodium 131 L
Potassium 4.3
Chloride 91 L
Carbon Dioxide 29
BUN 81 H
Creatinine 2.1 H
Glucose 69 L
Calcium 9.2
Vital Signs:
Vital Signs
Temp Pulse Resp BP Pulse Ox
97.6 F 69 18 146/78 97
08/21/23 03:40 08/21/23 03:40 08/21/23 03:40 08/21/23 03:40 08/21/23 03:40
I&O
08/20/23 08/21/23 08/22/23
06:59 06:59 06:59
Intake Total 720 / 720 800 / 800
Balance 720 / 720 800 / 800
[2023-08-21 07:48] LABS: Glucose - Point of Care 88 mg/dl (70-99)
[2023-08-21] MEDS: NOVOLOG FLEXPEN-LOW RESISTANCE SC (07:59)
[2023-08-21] MEDS: LASIX 80 MG IV ×2 (08:00→17:14)
[2023-08-21] MEDS: KCL 40 MEQ PO ×2 (08:00→17:14)
[2023-08-21] MEDS: CARDIZEM CD 120 MG PO (08:01)
[2023-08-21] MEDS: PRANDIN 0.5 MG PO ×3 (08:01→17:15)
[2023-08-21] MEDS: ZYLOPRIM 100 MG PO (08:01)
[2023-08-21] MEDS: TOPROL XL 12.5 MG PO (08:01)
[2023-08-21] MEDS: ZAROXOLYN 10 MG PO ×2 (08:01→17:13)
[2023-08-21] MEDS: ALDACTONE 25 MG PO (08:01)
[2023-08-21] MEDS: DESENEX/MITRAZOL/ZEASORB 1 APPLIC TOPICAL ×2 (08:02→20:42)
--- NOTE | 2023-08-21 09:39 | W.PN.CD ---
Today's Communication / Plan
-
Stop metoprolol
Continue IV Lasix augmented with zaroxolyn
Intense monitoring
Impression / Plan
-
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
Severe acute on chronic HFpEF
- Clinically and by echo more right heart failure than left heart failure
- high risk situation with CKD4 and cardiorenal syndrome: close monitoring of labs and tele as we continue IV diuresis
- We think goal weight is ~180 lbs / 81.8 kg
- Admit weight about 90.4 kg; weight is slowly coming down to 83.6 kg now (Zaroxolyn 10 mg twice yesterday)
- Still with lots of edema but clearly improved
- Continue Lasix 80 mg IV BID.
- Will reassess tomorrow.
Hypokalemia from diuresis
- Watch on the increased Aldactone
CKD4 - acute on chronic. Worse. Hope to see it improve
- Creatinine remains at relative baseline.
- has declined Nephrology evaluation in the past
MVR - mechanical in 2008, stable on echo, chronic warfarin
TAVR - 09/2022, normally functioning on TAVR in [facility] this admit
SLOW permanent Afib => improved on less rate control
- In past she was hard to rate control not the case now and given the frequent V pace
- Normal LVEF with HFpEF
- Will stay off digoxin
- Dilt decreased and today I will stop metoprolol
CAD - s/p CABG, no angina, patent grafts prior to TAVR. No ASA (prior SDH)
HLD - stable on Lipitor, continue.
Prior primary VR arrest => Medtronic single chamber device.
Severe TR preceded ICD lead placement
Subjective: No major events overnight.
Data :
Echo 08/15/2023: LVEF 55-60%, dilated RV with reduced RV syst fxn, evidence of RV vol/pressure overload, [facility] (mean 2), TAVR fine (mean 11, no AI). Severe TR (note that severe TR preceded ICD implant). Ext PASP 28 and est RA 15. Similar to
prior echo 11/23/2022 but on prior echo est PASP 55 and LA was enlarged
Cath 08/2022:
[place] CAD as described with patent bypass grafts including SOMMERS-LAD, SVG-OM1-OM2, and SVG-RCA
Findings are similar to the prior study from 09/21/2020
She will have a pre TAVR chest CTA once her renal fun
Physical Exam
Vital Signs/Labs
Vital Signs
Temp Pulse Resp BP Pulse Ox
97.4 F 68 20 141/72 95
08/21/23 07:42 08/21/23 08:01 08/21/23 07:42 08/21/23 08:01 08/21/23 07:42
08/20/23 08/21/23 08/22/23
06:59 06:59 06:59
Actual Weight 85.36 kg 83.603 kg
08/14/23 03:24
08/21/23 05:42
PT 36.4 Sec (11.4-14.6) H 08/21/23 05:42
INR 3.65 08/21/23 05:42
APTT 49.6 Sec (23.4-35.0) H 08/12/23 16:13
Magnesium 2.4 mg/dl (1.6-2.3) H 08/21/23 05:42
Triglycerides 78 mg/dl (10-149) 08/13/23 04:06
LDL Cholesterol, Calc 56 mg/dl 08/13/23 04:06
VLDL Cholesterol, Calc 15 mg/dl (0-30) 08/13/23 04:06
HDL Cholesterol 27 mg/dl 08/13/23 04:06
Free T4 1.06 ng/dl (0.78-2.19) 08/19/23 06:27
Digoxin 0.8 ng/ml (0.8-2.0) 08/13/23 04:06
08/12/23
15:45
Dty-V-Unlrzkvtyew Pept 1470
Physical Exam
Constitutional: No acute distress
EENT: Anicteric
Cardiovascular: Rhythm/rate is irregular and Pedal edema present (2-3 + LE, and 1-2+ LUE)
Respiratory: Respiratory effort normal and Lungs clear to auscul.
GI: Soft and Distention absent
Neuro/Psych: Alert
Data Reviewed
-
Date of Service: August 21, 2023
--- NOTE | 2023-08-21 10:30 | PTCARENOTE ---
Diabetes Education- Met with Sonia and , Naga. Current A1C 7.5%, taking Prandin 0.5 mg AC. She has not monitored BS in years, nor any knowledge of CHO. Provided with and instructions given on Contour NExt EZ glucometer, to test 2x/day,
following testing pattern as marked in the education booklet. Naga able to help with return demonstration, Sonia unable to perform independently,due to tremors, edema and decrease strength. Result 224 mg/dl 1 hr post breakfast. Information on outpt
DSME classes given. Plan is to be discharged to [facility]. They are aware to call me with any further questions for interest in ed classes.
--- NOTE | 2023-08-21 11:36 | CM ---
Addendum entered by Aminata Norman 08/21/23 14:58:
[facility] feels patient medically appropriate per Sonia, in admissions.
Addendum entered by Aminata Norman 08/21/23 13:30:
[facility] indicated cost of Jardiance is 613.00 and the generic for Farxiga is approx 300, marcus delgadillo but insurance delgadillo would be higher. Per [facility] orders the Farxiga is not covered. If patient went to SNF under Medicare A the cost
would be lower for the first month but it is unclear what the pricing would be after the first month. JONAS spoke with drug rep who promised coupons for one month and provided web site of [employer] to obtain one month free.
Addendum entered by Aminata Norman 08/21/23 13:15:
Sonia from [facility] called to state that they could accept patient for transfer tomorrow if medically appropriate for transfer. Please call [phone]/fax [phone] when medically appropriate. CM sent tt to hospitalist and await response
regarding discharge planning.
Original Note:
Patient seen at bedside with . Reviewed options regarding SNF and requested CM send updated clinicals to [facility] and CM spoke with Sonia and sent updated clinicals. CM will continue to follow for discharge planning needs.
Plan; SNF
[2023-08-21 12:22] LABS: Glucose - Point of Care 191 mg/dl (70-99)
[2023-08-21] MEDS: NOVOLOG FLEXPEN-LOW RESISTANCE 1 UNITS SC (12:46)
[2023-08-21 17:03] LABS: Glucose - Point of Care 216 mg/dl (70-99)
[2023-08-21] MEDS: LIPITOR 40 MG PO (17:14)
[2023-08-21] MEDS: NOVOLOG FLEXPEN-LOW RESISTANCE 2 UNITS SC (17:16)
[2023-08-21 21:35] LABS: Glucose - Point of Care 143 mg/dl (70-99)
[2023-08-22] VITALS (7 sets, daily range): BP systolic 103–143; BP diastolic 67–90; PULSE 95; O2SAT 96; BMI 31.6
[2023-08-22] MEDS: AMBIEN 5 MG PO ×2 (02:36→23:43)
[2023-08-22 06:41] LABS: PT 35.1 Sec (11.4-14.6)
[2023-08-22 06:53] LABS: Blood Urea Nitrogen 74 mg/dl (7-17); Calcium 9.1 mg/dl (8.4-10.2); Carbon Dioxide 29 mmol/L (22-30); Chloride 94 mmol/L (98-107); Estimated Creatinine Clearance 23 ml/min; Glucose 74 mg/dl (70-99); Magnesium 2.3 mg/dl (1.6-2.3); Sodium 130 mmol/L (135-145); eGFR 23.53
--- NOTE | 2023-08-22 07:26 | W.PN.HOSP.TC ---
Today's Communication/Plan
-
cont diuresis as per cardio
monitor renal function
allopurinol reduced to 50 mg every other day renally dosing
cont hold warfarin supratherapeutic INR
PT/OT
discharge planning for SNF rehab tomorrow Th
Assessment / Plan
Assessment / Plan
Physical Exam
Genera: no acute distress appears comfortable at this time.
Cardiovascular system S1-S2 irregular, systolic murmur at right heart border
Pulm: clear to auscultation though diminished breath sounds
Abdomen: soft and nontender
Ext: edema swelling upper lower ext's improving
Neuro: AOx3 upper ext tremors
77-year-old female with history of CHF was treated at [facility] for CHF and was discharged to a local rehab.� Patient still had a lot of edema which got worse which prompted her to come to [facility].� Patient has shortness
of breath and feels really tired and puffy all over.� Clothes not fitting her anymore.� Denies any chest pain
# Acute on chronic heart failure with PEF
Also suspect right heart failure-Type unknown
Patient denies sleep apnea but-may need a sleep study given findings on the echo.
Diuresis Lasix 80 mg IV twice daily. Zaroxolyn as per cardio
Follow creatinine closely with CKD, stable at this time
Troponin negative for ischemia
Intake output charting and daily weights
Continue metoprolol
Not on ROSALIND inhibitor likely secondary to elevated creatinine.
SGLT2 inhibitor cost prohibitive
Echo 08/15/2023-normal LV systolic function. Dilated RV. Normal RV contractility. Septal flattening in diastole consistent with RV volume overload. Seen Bowen mechanical mitral valve replacement well-seated. TAVR well-seated. Severely dilated
atrium. Severe TR. Pulmonary pressure 28 mmHg.
# Elevated uric acid level with gouty Tophi-started on allopurinol continue, reduced to renal dosage 50 mg every other day
#Tremors upper ext's
present for months to years as per patient and her
worsening over past few days
suspect underlying essential tremor masked by previous BB therapy since discontinued due to bradycardia
outpatient follow up with neurology recommended
also possible side effect allopurinol dose reduced from 100 mg daily to 50 mg every other days
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
TAVR was on October 05, 2022.
Severe TR noted
# History of V-fib cardiac arrest requiring ICD placement
# Coronary artery disease with CABG in 2008
# Permanent atrial fibrillation-continue Cardizem and metoprolol for rate control-dose
Metoprolol dose decreased from 100 mg twice daily to 25 mg twice daily, eventually discontinued as per cardio
Dig stopped
On Coumadin for anticoagulation
Coumadin held briefly due to supratherapeutic INR>3
08/18 INR improved at goal 2-3, home warfarin resumed, 08/21 placed on hold again due to supratherapeutic INR
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
Cr stable 2.1 on diuresis as per cardio
# Chronic right bundle branch block
# Hypertension
Follow blood pressure on metoprolol,Aldactone
# Hyperlipidemia-continue statin
# Diabetes type 2 Accu-Cheks and sliding scale coverage
Patient on Prandin
Hemoglobin A1c 7.5
Diabetic and nutrition education provided
# Mild Elevated LFTs likely secondary to hepatic congestion.
# Mild hyponatremia-from fluid overload hypervolemic in nature
Na stable 130s
# History of subdural hemorrhage
#Elevated TSH with normal T4
outpt repeat in 1 month
# Obesity
# DNR
PT/OT appreciated SNF rehab
Discussed with patient and her .
I spent a total of 50 minutes with the patient or on the floor. More than 50% of this time involved counseling and coordination of care.
Anticipated Discharge: Within 24 hours
Subjective/Interval History
-
Date of Service: August 22, 2023
reporting tremors upper extremities present for months to years but worsening over past few days. Otherwise no acute distress appears comfortable at this time. Weight near goal
Objective Data
-
Labs:
Laboratory Results
08/22/23
05:53
PT 35.1 H
INR 3.50
Sodium 130 L
Potassium 4.0
Chloride 94 L
Carbon Dioxide 29
BUN 74 H
Creatinine 2.1 H
Glucose 74
Calcium 9.1
Vital Signs:
Vital Signs
Temp Pulse Resp BP Pulse Ox
97.9 F 77 16 130/67 96
08/22/23 03:25 08/22/23 03:25 08/22/23 03:25 08/22/23 03:25 08/22/23 03:25
I&O
08/21/23 08/22/23 08/23/23
06:59 06:59 06:59
Intake Total 800 / 800 1140 / 1140
Balance 800 / 800 1140 / 1140
[2023-08-22 08:26] LABS: Glucose - Point of Care 75 mg/dl (70-99)
[2023-08-22] MEDS: LASIX 80 MG IV (08:50)
[2023-08-22] MEDS: NOVOLOG FLEXPEN-LOW RESISTANCE SC (08:51)
[2023-08-22] MEDS: ZAROXOLYN 10 MG PO (08:52)
[2023-08-22] MEDS: KCL 40 MEQ PO (08:54)
[2023-08-22] MEDS: PRANDIN 0.5 MG PO ×3 (08:54→16:31)
[2023-08-22] MEDS: ZYLOPRIM 100 MG PO (08:54)
[2023-08-22] MEDS: CARDIZEM CD PO (08:55)
[2023-08-22] MEDS: ALDACTONE 25 MG PO (08:55)
[2023-08-22] MEDS: DESENEX/MITRAZOL/ZEASORB 1 APPLIC TOPICAL ×2 (09:04→20:09)
--- NOTE | 2023-08-22 10:01 | W.PN.CD ---
Today's Communication / Plan
-
- Will move to PO Torsemide bid and decrease Zaroxolyn to one time on Sun
- Continue daily Aldactone
- Suggest daily weights (call to our office for weight gain)
- weekly BMP for first 4 weeks from now
- F/u with us in 1 week if home or if goes to SNF then 1 week from SNF discharge or 4 weeks from now
- Will stop dilt
Impression / Plan
-
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
Severe acute on chronic HFpEF
- Clinically and by echo more right heart failure than left heart failure
- high risk situation with CKD4 and cardiorenal syndrome: close monitoring of labs and tele as we continue IV diuresis
- We think goal weight is ~180 lbs / 81.8 kg
- Admit weight about 90.4 kg; weight is slowly coming down to 83.5 kg now (Zaroxolyn 10 mg twice)
- Much improve edema compared with admit but still quite a bit of edema
- Will move to PO Torsemide bid and decrease Zaroxolyn to one time on Sun
- Continue daily Aldactone
- Suggest daily weights (call to our office for weight gain) and weekly BMP for first 4 weeks from now
Hypokalemia from diuresis
- Watch on the increased Aldactone
CKD4 - acute on chronic. Worse. Hope to see it improve
- Creatinine remains at relative baseline.
- has declined Nephrology evaluation in the past
MVR - mechanical in 2008, stable on echo, chronic warfarin
TAVR - 09/2022, normally functioning on TAVR in [facility] this admit
SLOW permanent Afib => improved on less rate control
- In past she was hard to rate control not the case now and given the frequent V pace
- Normal LVEF with HFpEF
- Will stay off digoxin
- Dilt decreased and today I will stop metoprolol
CAD - s/p CABG, no angina, patent grafts prior to TAVR. No ASA (prior SDH)
HLD - stable on Lipitor, continue.
Prior primary VR arrest => Medtronic single chamber device.
Severe TR preceded ICD lead placement
Subjective: No major events overnight.
Data :
Echo 08/15/2023: LVEF 55-60%, dilated RV with reduced RV syst fxn, evidence of RV vol/pressure overload, [facility] MVR fine (mean 2), TAVR fine (mean 11, no AI). Severe TR (note that severe TR preceded ICD implant). Ext PASP 28 and est RA 15. Similar to
prior echo 11/23/2022 but on prior echo est PASP 55 and LA was enlarged
Cath 08/2022:
[place] CAD as described with patent bypass grafts including SOMMERS-LAD, SVG-OM1-OM2, and SVG-RCA
Findings are similar to the prior study from 09/21/2020
She will have a pre TAVR chest CTA once her renal fun
Physical Exam
Vital Signs/Labs
Vital Signs
Temp Pulse Resp BP Pulse Ox
97.3 F 75 18 112/67 97
08/22/23 07:30 08/22/23 08:55 08/22/23 07:30 08/22/23 08:55 08/22/23 07:30
08/21/23 08/22/23 08/23/23
06:59 06:59 06:59
Actual Weight 83.603 kg 83.574 kg
08/14/23 03:24
08/22/23 05:53
PT 35.1 Sec (11.4-14.6) H 08/22/23 05:53
INR 3.50 08/22/23 05:53
APTT 49.6 Sec (23.4-35.0) H 08/12/23 16:13
Magnesium 2.3 mg/dl (1.6-2.3) 08/22/23 05:53
Triglycerides 78 mg/dl (10-149) 08/13/23 04:06
LDL Cholesterol, Calc 56 mg/dl 08/13/23 04:06
VLDL Cholesterol, Calc 15 mg/dl (0-30) 08/13/23 04:06
HDL Cholesterol 27 mg/dl 08/13/23 04:06
Free T4 1.06 ng/dl (0.78-2.19) 08/19/23 06:27
Digoxin 0.8 ng/ml (0.8-2.0) 08/13/23 04:06
08/12/23
15:45
Irt-W-Iyypxzyedtm Pept 1470
Physical Exam
Constitutional: No acute distress
EENT: Anicteric
Cardiovascular: Rhythm/rate is irregular and Pedal edema present (but much improved from admit)
Respiratory: Respiratory effort normal and Lungs clear to auscul.
GI: Soft and Distention absent
Neuro/Psych: Alert
Data Reviewed
-
Date of Service: August 22, 2023
--- NOTE | 2023-08-22 10:39 | CM ---
Addendum entered by Aminata Norman 08/22/23 15:12:
Patient given IMM and he is to review and plan is for discharge to [facility] tomorrow pending physician assessment.
Original Note:
Patient updated that bed would be available at [facility] on pending physician assessment. CM will continue to follow for discharge planning needs.
Plan; SNF; [facility] when medically appropriate. no auth needed.
[2023-08-22 12:16] LABS: Glucose - Point of Care 225 mg/dl (70-99)
[2023-08-22] MEDS: NOVOLOG FLEXPEN-LOW RESISTANCE 2 UNITS SC (13:20)
[2023-08-22 16:31] LABS: Glucose - Point of Care 151 mg/dl (70-99)
[2023-08-22] MEDS: NOVOLOG FLEXPEN-LOW RESISTANCE 1 UNITS SC (16:31)
[2023-08-22] MEDS: DEMADEX 40 MG PO (16:31)
[2023-08-22] MEDS: LIPITOR 40 MG PO (17:41)
[2023-08-22 21:32] LABS: Glucose - Point of Care 147 mg/dl (70-99)
[2023-08-23] VITALS (8 sets, daily range): BP systolic 115–143; BP diastolic 64–101; PULSE 95; O2SAT 97; BMI 29.7
[2023-08-23 06:51] LABS: INR 2.84; PT 30.2 Sec (11.4-14.6)
[2023-08-23 07:04] LABS: Blood Urea Nitrogen 73 mg/dl (7-17); Calcium 9.6 mg/dl (8.4-10.2); Carbon Dioxide 31 mmol/L (22-30); Chloride 90 mmol/L (98-107); Estimated Creatinine Clearance 27 ml/min; Glucose 85 mg/dl (70-99); Magnesium 2.1 mg/dl (1.6-2.3); Phosphorus 3.7 mg/dl (2.5-4.5); Sodium 131 mmol/L (135-145); eGFR 30.32
--- NOTE | 2023-08-23 07:25 | W.PN.HOSP.TC ---
Today's Communication/Plan
-
discharge SNF rehab on hold due to Afib rvr
cardizem resumed as per cardio
cont diuresis as per cardio
resume coumadin
cont glycemic control
PT/OT
Assessment / Plan
Assessment / Plan
Physical Exam
Genera: no acute distress appears comfortable at this time.
Cardiovascular system S1-S2 irregular, systolic murmur at right heart border
Pulm: clear to auscultation though diminished breath sounds
Abdomen: soft and nontender
Ext: edema swelling upper lower ext's improving
Neuro: AOx3 upper ext tremors
77-year-old female with history of CHF was treated at [facility] for CHF and was discharged to a local rehab.� Patient still had a lot of edema which got worse which prompted her to come to [facility].� Patient has shortness
of breath and feels really tired and puffy all over.� Clothes not fitting her anymore.� Denies any chest pain
# Acute on chronic heart failure with PEF
Also suspect right heart failure-Type unknown
Patient denies sleep apnea but-may need a sleep study given findings on the echo.
Follow creatinine closely with CKD, stable at this time
Troponin negative for ischemia
Intake output charting and daily weights
Continue metoprolol
Not on ROSALIND inhibitor likely secondary to elevated creatinine.
SGLT2 inhibitor cost prohibitive
Echo 08/15/2023-normal LV systolic function. Dilated RV. Normal RV contractility. Septal flattening in diastole consistent with RV volume overload. Seen Bowen mechanical mitral valve replacement well-seated. TAVR well-seated. Severely dilated
atrium. Severe TR. Pulmonary pressure 28 mmHg.
Cardio eval appreciated Transitioned to PO Torsemide 40 mg BID and Zaroxolyn 5 mg //, Aldactone 25 mg daily, potassium supplementation 40 mg daily
# Elevated uric acid level with gouty Tophi-started on allopurinol continue, reduced to renal dosage 50 mg every other day
#Tremors upper ext's
present for months to years as per patient and her
worsening over past few days
suspect underlying essential tremor masked by previous BB therapy since discontinued due to bradycardia
also possible side effect allopurinol dose reduced from 100 mg daily to 50 mg every other days
monitor for now, considering propranolol, outpt neuro follow up recommended consider inpt eval if significantly worsens
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
TAVR was on October 05, 2022.
Severe TR noted
# History of V-fib cardiac arrest requiring ICD placement
# Coronary artery disease with CABG in 2008
# Permanent atrial fibrillation
#Bradycardia
#Afib RVR
Metoprolol dose decreased from 100 mg twice daily to 25 mg twice daily, eventually discontinued as per cardio due to bradycardia along with cardizem
Dig stopped
Patient however developed Afib RVR 08/23 Cardizem since resumed at reduced dose 120 mg daily
On Coumadin for anticoagulation
Coumadin held due to supratherapeutic INR>3
08/18 INR improved at goal 2-3, home warfarin resumed, 08/21 placed on hold again due to supratherapeutic INR 08/23 resumed with INR at goal
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
Cr stable
# Chronic right bundle branch block
# Hypertension
Spironolactone
Torsemide BID
Metolazone MoWeFr
Cardizem
# Hyperlipidemia-continue statin
# Diabetes type 2 Accu-Cheks and sliding scale coverage
Patient on Prandin
Hemoglobin A1c 7.5
Diabetic and nutrition education provided
# Mild Elevated LFTs likely secondary to hepatic congestion.
# Mild hyponatremia-from fluid overload hypervolemic in nature
Na stable 130s
# History of subdural hemorrhage
#Elevated TSH with normal T4
outpt repeat in 1 month
# Obesity
# DNR
dvt ppx Therapeutic INR Coumadin
PT/OT appreciated SNF rehab
Discussed with patient and her .
I spent a total of 55 minutes with the patient or on the floor. More than 50% of this time involved counseling and coordination of care.
Anticipated Discharge: 24 - 48 hours
Subjective/Interval History
-
Date of Service: August 23, 2023
No acute distress. Tremors remain present upper ext's.
Objective Data
-
Labs:
Laboratory Results
08/23/23
05:56
PT 30.2 H
INR 2.84
Sodium 131 L
Potassium 4.0
Chloride 90 L
Carbon Dioxide 31 H
BUN 73 H
Creatinine 1.7 H
Glucose 85
Calcium 9.6
Vital Signs:
Vital Signs
Temp Pulse Resp BP Pulse Ox
97.2 F 102 18 133/83 98
08/23/23 03:17 08/23/23 03:17 08/23/23 03:17 08/23/23 03:17 08/23/23 03:17
I&O
08/22/23 08/23/23 08/24/23
06:59 06:59 06:59
Intake Total 1140 / 1140 740 / 740
Balance 1140 / 1140 740 / 740
--- NOTE | 2023-08-23 07:58 | W.PN.CD ---
Today's Communication / Plan
-
- Patient now with A-fib with RVR.
- Was previously on digoxin 125 mcg daily, Cardizem CD 240 mg daily, and Toprol-XL 100 mg BID.
- Will place back on Cardizem CD at a dose of 120 mg daily for now; continue to monitor heart rates on telemetry.
- Transitioned to PO Torsemide 40 mg BID and Zaroxolyn 5 mg M/W/.
- Continue daily Aldactone 25 mg daily.
Impression / Plan
-
77 yo female with chronic HFPEF, CKD4, permanent A fib, mechanical MVR on warfarin admitted with acute on chronic HFPEF.� She has significant edema and weight gain after recent admit at [facility]
Severe acute on chronic HFpEF
- Clinically and by echo more right heart failure than left heart failure
- high risk situation with CKD4 and cardiorenal syndrome: close monitoring of labs and tele as we continue IV diuresis
- We think goal weight is ~180 lbs / 81.8 kg
- Admit weight about 90.4 kg; weight is slowly coming down to 83.5 kg now (Zaroxolyn 10 mg twice)
- Much improve edema compared with admit but still quite a bit of edema
- Transitioned to PO Torsemide 40 mg BID and Zaroxolyn 5 mg M/W/.
- Continue daily Aldactone 25 mg daily.
CKD4 -stable; slightly improved today (2.1-->1.7)
- has declined Nephrology evaluation in the past
MVR - mechanical in 2008, stable on echo, chronic warfarin
TAVR - 09/2022, normally functioning on TAVR in eco this admit
Permanent Afib - Now with RVR again.
- Was previously on digoxin 125 mcg daily, Cardizem CD 240 mg daily, and Toprol-XL 100 mg BID.
- Normal LVEF with HFpEF
- Will place back on Cardizem CD at a dose of 120 mg daily for now; continue to monitor heart rates on telemetry.
CAD - s/p CABG, no angina, patent grafts prior to TAVR. No ASA (prior SDH)
HLD - stable on Lipitor, continue.
Prior primary VR arrest => Medtronic single chamber device.
Severe TR preceded ICD lead placement
Subjective:
Patient now with A-fib with RVR.
Data :
Echo 08/15/2023: LVEF 55-60%, dilated RV with reduced RV syst fxn, evidence of RV vol/pressure overload, mech MVR fine (mean 2), TAVR fine (mean 11, no AI). Severe TR (note that severe TR preceded ICD implant). Ext PASP 28 and est RA 15. Similar to
prior echo 11/23/2022 but on prior echo est PASP 55 and LA was enlarged
Cath 08/2022:
[place] CAD as described with patent bypass grafts including SOMMERS-LAD, SVG-OM1-OM2, and SVG-RCA
Findings are similar to the prior study from 09/21/2020
She will have a pre TAVR chest CTA once her renal fun
Physical Exam
Vital Signs/Labs
Vital Signs
Temp Pulse Resp BP Pulse Ox
97.2 F 102 18 133/83 98
08/23/23 03:17 08/23/23 03:17 08/23/23 03:17 08/23/23 03:17 08/23/23 03:17
08/22/23 08/23/23 08/24/23
06:59 06:59 06:59
Actual Weight 83.574 kg 78.557 kg
08/14/23 03:24
08/23/23 05:56
PT 30.2 Sec (11.4-14.6) H 08/23/23 05:56
INR 2.84 08/23/23 05:56
APTT 49.6 Sec (23.4-35.0) H 08/12/23 16:13
Magnesium 2.1 mg/dl (1.6-2.3) 08/23/23 05:56
Triglycerides 78 mg/dl (10-149) 08/13/23 04:06
LDL Cholesterol, Calc 56 mg/dl 08/13/23 04:06
VLDL Cholesterol, Calc 15 mg/dl (0-30) 08/13/23 04:06
HDL Cholesterol 27 mg/dl 08/13/23 04:06
Free T4 1.06 ng/dl (0.78-2.19) 08/19/23 06:27
Digoxin 0.8 ng/ml (0.8-2.0) 08/13/23 04:06
08/12/23
15:45
Ctg-B-Fqnqrftmojs Pept 1470
Physical Exam
Constitutional: No acute distress and Comfortable
EENT: Anicteric
Cardiovascular: Rhythm/rate is irregular, Pedal edema present (Trace-1+), Systolic murmur present (3/6) and S1S2 is normal (Mechanical)
Respiratory: Respiratory effort normal and Rhonchi Present (Mild bibasilar)
GI: Soft
Neuro/Psych: AO x 3
Other: Skin (Warm, dry, intact)
Data Reviewed
-
Date of Service: August 23, 2023
EKG: Tracing Personally Visualized and interpreted (Telemetry: A-fib with RVR)
Medical Tests (PFT, Pathology etc): Discussed with Patient
Labs: Labs Reviewed by me
[2023-08-23] MEDS: DEMADEX 40 MG PO ×2 (08:21→17:17)
[2023-08-23] MEDS: CARDIZEM CD 120 MG PO (08:21)
[2023-08-23] MEDS: KCL 40 MEQ PO (08:21)
[2023-08-23] MEDS: PRANDIN 0.5 MG PO ×3 (08:21→17:18)
[2023-08-23] MEDS: DESENEX/MITRAZOL/ZEASORB 1 APPLIC TOPICAL ×2 (08:22→20:15)
[2023-08-23] MEDS: ALDACTONE 25 MG PO (08:22)
[2023-08-23] MEDS: NOVOLOG FLEXPEN-LOW RESISTANCE SC ×2 (08:27→17:21)
[2023-08-23 08:35] LABS: Glucose - Point of Care 86 mg/dl (70-99)
--- NOTE | 2023-08-23 10:03 | CM ---
Addendum entered by Aminata Norman 08/23/23 13:15:
Patient and daughter made aware of plan to contact [facility] about next available bed when patient is medically appropriate for transition.
Original Note:
Patient now with cardiology concern and per physician not for transfer to SNF; [facility]. CM spoke with facility. Admissions at [facility] stated that after today they are not sure that they will be able to hold the bed for her, Physician aware.
CM will continue to follow for discharge planning needs.
Plan; SNF; pending bed availability family choice is [facility]
[2023-08-23 12:03] LABS: Glucose - Point of Care 155 mg/dl (70-99)
[2023-08-23] MEDS: NOVOLOG FLEXPEN-LOW RESISTANCE 1 UNITS SC (12:32)
[2023-08-23 17:11] LABS: Glucose - Point of Care 118 mg/dl (70-99)
[2023-08-23] MEDS: COUMADIN 2.5 MG PO (17:17)
[2023-08-23] MEDS: LIPITOR 40 MG PO (17:18)
[2023-08-23 22:07] LABS: Glucose - Point of Care 132 mg/dl (70-99)
[2023-08-24] VITALS (7 sets, daily range): BP systolic 110–157; BP diastolic 71–91; PULSE 104; O2SAT 95; BMI 29.2
[2023-08-24] MEDS: AMBIEN 5 MG PO ×2 (01:05→22:12)
[2023-08-24 06:37] LABS: Blood Urea Nitrogen 60 mg/dl (7-17); Calcium 9.1 mg/dl (8.4-10.2); Carbon Dioxide 28 mmol/L (22-30); Chloride 94 mmol/L (98-107); Estimated Creatinine Clearance 29 ml/min; Glucose 93 mg/dl (70-99); Phosphorus 3.5 mg/dl (2.5-4.5); Sodium 130 mmol/L (135-145)
[2023-08-24 07:00] LABS: INR 2.34; PT 25.9 Sec (11.4-14.6)
[2023-08-24] MEDS: PRANDIN 0.5 MG PO ×3 (07:58→18:14)
[2023-08-24] MEDS: CARDIZEM CD 120 MG PO (07:58)
[2023-08-24] MEDS: ZAROXOLYN 5 MG PO (07:58)
[2023-08-24] MEDS: ALDACTONE 25 MG PO (07:58)
[2023-08-24] MEDS: ZYLOPRIM 50 MG PO (07:59)
[2023-08-24] MEDS: DEMADEX 40 MG PO ×2 (07:59→18:14)
[2023-08-24] MEDS: KCL 40 MEQ PO (07:59)
[2023-08-24] MEDS: DESENEX/MITRAZOL/ZEASORB 1 APPLIC TOPICAL ×2 (08:00→20:40)
[2023-08-24 08:15] LABS: Glucose - Point of Care 85 mg/dl (70-99)
[2023-08-24] MEDS: NOVOLOG FLEXPEN-LOW RESISTANCE SC ×2 (08:43→18:06)
[2023-08-24 11:46] LABS: Glucose - Point of Care 244 mg/dl (70-99)
[2023-08-24] MEDS: NOVOLOG FLEXPEN-LOW RESISTANCE 2 UNITS SC (12:00)
--- NOTE | 2023-08-24 14:21 | W.PN.HOSP.TC ---
Today's Communication/Plan
-
May need to restart BB for tremors
Leave upto Cards re CCB
continue diuretics
Discharge panning
Pt requesting [facility]
Assessment / Plan
Assessment / Plan
CVS: S1-S2 irregular, sm at RHB
Chest: CTA B/L
Abdomen: Soft, NT / Bowel sounds present
Extremities: mild LE edema,no UE edema
GRAPE CUTTER: Non focal exam
77-year-old female with history of CHF was treated at [facility] for CHF and was discharged to a local rehab.� Patient still had a lot of edema which got worse which prompted her to come to [facility].� Patient has shortness
of breath and feels really tired and puffy all over.� Clothes not fitting her anymore.� Denies any chest pain
# Acute on chronic heart failure with PEF
Also suspect right heart failure-Type unknown
Patient denies sleep apnea but-may need a sleep study given findings on the echo.
Follow creatinine closely with CKD, stable at this time
Troponin negative for ischemia
Intake output charting and daily weights
Not on ROSALIND inhibitor likely secondary to elevated creatinine.
SGLT2 inhibitor cost prohibitive
Echo 08/15/2023-normal LV systolic function. Dilated RV. Normal RV contractility. Septal flattening in diastole consistent with RV volume overload. Seen Bowen mechanical mitral valve replacement well-seated. TAVR well-seated. Severely dilated
atrium. Severe TR. Pulmonary pressure 28 mmHg.
Cardio eval appreciated Transitioned to PO Torsemide 40 mg BID and Zaroxolyn 5 mg //, Aldactone 25 mg daily, potassium supplementation 40 mg daily
May need to restart BB
33 lb weight loss
# Elevated uric acid level with gouty Tophi-started on allopurinol continue, reduced to renal dosage 50 mg every other day
#Tremors upper ext's
present for months to years as per patient and her
worsening over past few days
suspect underlying essential tremor masked by previous BB therapy since discontinued due to bradycardia
Consider restarting BB if OK with cards also
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
TAVR was on October 05, 2022.
Severe TR noted
# History of V-fib cardiac arrest requiring ICD placement
# Coronary artery disease with CABG in 2008
# Permanent atrial fibrillation
#Bradycardia earlier in the hospitalisation
#Afib RVR
Metoprolol dose decreased , eventually discontinued as per cardio due to bradycardia along with Cardizem
Dig stopped
Patient however developed Afib RVR 08/23 Cardizem since resumed at reduced dose 120 mg daily, then increased to 240 mg daily
On Coumadin for anticoagulation
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
Cr stable
# Chronic right bundle branch block
# Hypertension
Spironolactone
Torsemide BID
Metolazone MoWeFr
Cardizem
# Hyperlipidemia-continue statin
# Diabetes type 2 Accu-Cheks and sliding scale coverage
Patient on Prandin
Hemoglobin A1c 7.5
Diabetic and nutrition education provided
# Mild Elevated LFTs likely secondary to hepatic congestion.
repeat
# Mild hyponatremia-from fluid overload hypervolemic in nature
Na stable 130s
Check serum osm
# History of subdural hemorrhage
#Elevated TSH with normal T4
outpt repeat in 1 month
# Obesity
# DNR
# DVT ppx Therapeutic INR Coumadin
PT/OT appreciated SNF rehab
Discussed with patient and her at bed side
D/W Cards
Anticipated Discharge: Within 24 hours
Subjective/Interval History
-
Date of Service: August 24, 2023
Objective Data
-
Labs:
Laboratory Results
08/24/23 08/24/23
05:40 06:17
PT 25.9 H
INR 2.34
Sodium 130 L
Potassium 4.0
Chloride 94 L
Carbon Dioxide 28
BUN 60 H
Creatinine 1.6 H
Glucose 93
Calcium 9.1
Vital Signs:
Vital Signs
Temp Pulse Resp BP Pulse Ox
98.2 F 84 16 119/82 98
08/24/23 11:25 08/24/23 11:25 08/24/23 11:25 08/24/23 11:25 08/24/23 11:25
I&O
08/23/23 08/24/23 08/25/23
06:59 06:59 06:59
Intake Total 740 / 740 600 / 600
Balance 740 / 740 600 / 600
--- NOTE | 2023-08-24 14:29 | W.PN.CD ---
Today's Communication / Plan
-
continue PO diuretic
stop diltiazem; resume Toprol XL at 25mg bid (tremors were worse off of this med)
discharge planning
she will need q1 week BMP while at rehab
Impression / Plan
-
77 yo female with chronic HFPEF, CKD4, permanent A fib, mechanical MVR on warfarin admitted with acute on chronic HFPEF.� She has significant edema and weight gain after recent admit at [place]
Severe acute on chronic HFpEF
- high risk situation with CKD4 and cardiorenal syndrome: close monitoring of labs and tele as we continue IV diuresis
- look good at 77 kg today (170lb)
- Transitioned to PO Torsemide 40 mg BID and Zaroxolyn 5 mg M//.
- Continue daily Aldactone 25 mg daily and Kcl 40 mEq daily
CKD4 -improved (2.1-->1.6)
- has declined Nephrology evaluation in the past
MVR - mechanical in 2008, stable on echo, chronic warfarin
TAVR - 09/2022, normally functioning on TAVR in echo this admit
Permanent Afib - Now with RVR again.
- Was previously on digoxin 125 mcg daily, Cardizem CD 240 mg daily, and Toprol-XL 100 mg BID.
- Normal LVEF with HFpEF
- all meds stopped, rates were higher; then tremor worse off of beta claire
-resume Toprol XL 25mg bid; remain off of digoxin and cardizem
CAD - s/p CABG, no angina, patent grafts prior to TAVR. No ASA (prior SDH)
HLD - stable on Lipitor, continue.
Prior primary VR arrest => Medtronic single chamber device.
Severe TR preceded ICD lead placement
Subjective:
Edema and SOB better.
Data :
Echo 08/15/2023: LVEF 55-60%, dilated RV with reduced RV syst fxn, evidence of RV vol/pressure overload, [facility] MVR fine (mean 2), TAVR fine (mean 11, no AI). Severe TR (note that severe TR preceded ICD implant). Ext PASP 28 and est RA 15. Similar to
prior echo 11/23/2022 but on prior echo est PASP 55 and LA was enlarged
Cath 08/2022:
[place] CAD as described with patent bypass grafts including SOMMERS-LAD, SVG-OM1-OM2, and SVG-RCA
Findings are similar to the prior study from 09/21/2020
She will have a pre TAVR chest CTA once her renal fun
Physical Exam
Vital Signs/Labs
Vital Signs
Temp Pulse Resp BP Pulse Ox
98.2 F 84 16 119/82 98
08/24/23 11:25 08/24/23 11:25 08/24/23 11:25 08/24/23 11:25 08/24/23 11:25
08/23/23 08/24/23 08/25/23
06:59 06:59 06:59
Actual Weight 78.557 kg 77.139 kg
08/14/23 03:24
08/24/23 05:40
PT 25.9 Sec (11.4-14.6) H 08/24/23 06:17
INR 2.34 08/24/23 06:17
APTT 49.6 Sec (23.4-35.0) H 08/12/23 16:13
Magnesium 2.0 mg/dl (1.6-2.3) 08/24/23 05:40
Triglycerides 78 mg/dl (10-149) 08/13/23 04:06
LDL Cholesterol, Calc 56 mg/dl 08/13/23 04:06
VLDL Cholesterol, Calc 15 mg/dl (0-30) 08/13/23 04:06
HDL Cholesterol 27 mg/dl 08/13/23 04:06
Free T4 1.06 ng/dl (0.78-2.19) 08/19/23 06:27
Digoxin 0.8 ng/ml (0.8-2.0) 08/13/23 04:06
08/12/23
15:45
Yvn-X-Teklsyvwhzz Pept 1470
Physical Exam
Constitutional: No acute distress and Comfortable
EENT: Moist mucous membranes
Cardiovascular: Rhythm/rate is irregular, Pedal edema present, JVD present and Systolic murmur present
Respiratory: Respiratory effort normal and Lungs clear to auscul.
GI: Soft, Distention absent and Flat
Neuro/Psych: AO x 3
Data Reviewed
-
Date of Service: August 24, 2023
EKG: Other (Tele: Afib 90s)
Labs: Labs Reviewed by me
--- NOTE | 2023-08-24 14:52 | CM ---
Addendum entered by Arline Banegas 08/24/23 16:06:
Per 's request, additional referrals sent to [facility] and [facility] via [facility].
declined [facility] due to active Covid in the building
Addendum entered by Arline Banegas 08/24/23 15:13:
Spoke via phone with patient and her via phone regarding bed availability status; explained that CM notified facilities and sent updated clinical information was sent to [facility] and [facility].
Per patient's request also contacted [facility]; they do not have any beds available
Original Note:
Contacted [facility] via phone and [facility] for bed availability status for today or tomorrow
[2023-08-24 15:41] LABS: ALT (SGPT) 28 U/L (0-35); AST (SGOT) 67 U/L (14-36); Albumin 3.8 g/dl (3.5-5.0); Alkaline Phosphatase 184 U/L (38-126); Direct Bilirubin 0.5 mg/dl (0.0-0.4); Total Bilirubin 2.5 mg/dl (0.2-1.3); Total Protein 6.7 g/dl (6.3-8.2)
[2023-08-24 15:54] LABS: Osmolality Serum 286 mOsm/kg (275-300)
[2023-08-24 17:04] LABS: Glucose - Point of Care 134 mg/dl (70-99)
[2023-08-24] MEDS: LIPITOR 40 MG PO (18:15)
[2023-08-24] MEDS: COUMADIN 2.5 MG PO (18:15)
[2023-08-24] MEDS: TOPROL XL 25 MG PO (20:39)
[2023-08-24 21:14] LABS: Glucose - Point of Care 161 mg/dl (70-99)
[2023-08-24] MEDS: SENOKOT-S 1 TABLET PO (21:30)
[2023-08-25] VITALS (7 sets, daily range): BP systolic 111–128; BP diastolic 60–75; PULSE 85; O2SAT 96; BMI 29.1
[2023-08-25 07:15] LABS: INR 2.27; PT 24.9 Sec (11.4-14.6)
[2023-08-25 07:37] LABS: Blood Urea Nitrogen 57 mg/dl (7-17); Carbon Dioxide 28 mmol/L (22-30); Chloride 94 mmol/L (98-107); Estimated Creatinine Clearance 31 ml/min; Glucose 93 mg/dl (70-99); Magnesium 1.9 mg/dl (1.6-2.3); Potassium 3.9 mmol/L (3.5-5.1); Sodium 128 mmol/L (135-145); eGFR 35.23
[2023-08-25 08:27] LABS: Glucose - Point of Care 93 mg/dl (70-99)
[2023-08-25] MEDS: KCL 40 MEQ PO (08:35)
[2023-08-25] MEDS: TOPROL XL 25 MG PO ×2 (08:36→20:38)
[2023-08-25] MEDS: ALDACTONE 25 MG PO (08:36)
[2023-08-25] MEDS: DEMADEX 40 MG PO ×2 (08:39→17:33)
[2023-08-25] MEDS: PRANDIN 0.5 MG PO ×3 (08:40→17:32)
[2023-08-25] MEDS: NOVOLOG FLEXPEN-LOW RESISTANCE SC ×3 (08:41→17:33)
[2023-08-25] MEDS: DESENEX/MITRAZOL/ZEASORB TOPICAL (08:42)
--- NOTE | 2023-08-25 10:10 | W.PN.CD ---
Today's Communication / Plan
-
continue PO diuretic
discharge planning
she will need q1 week BMP while at rehab
Impression / Plan
-
77 yo female with chronic HFPEF, CKD4, permanent A fib, mechanical MVR on warfarin admitted with acute on chronic HFPEF.� She has significant edema and weight gain after recent admit at [facility]
Severe acute on chronic HFpEF
- high risk situation with CKD4 and cardiorenal syndrome: close monitoring of labs and tele as we continue IV diuresis
- look good at ~77 kg today (170lb)
- Transitioned to PO Torsemide 40 mg BID and Zaroxolyn 5 mg //.
- Continue daily Aldactone 25 mg daily and Kcl 40 mEq daily
CKD4 -improved (2.1-->1.6)
- has declined Nephrology evaluation in the past
MVR - mechanical in 2008, stable on echo, chronic warfarin
TAVR - 09/2022, normally functioning on TAVR in echo this admit
Permanent Afib - Now with RVR again.
- Was previously on digoxin 125 mcg daily, Cardizem CD 240 mg daily, and Toprol-XL 100 mg BID.
- Normal LVEF with HFpEF
- all meds stopped, rates were higher; then tremor worse off of beta claire
-resumed Toprol XL 25mg bid; remain off of digoxin and cardizem
CAD - s/p CABG, no angina, patent grafts prior to TAVR. No ASA (prior SDH)
HLD - stable on Lipitor, continue.
Prior primary VR arrest => Medtronic single chamber device.
Severe TR preceded ICD lead placement
Subjective:
Edema and SOB better.
Data :
Echo 08/15/2023: LVEF 55-60%, dilated RV with reduced RV syst fxn, evidence of RV vol/pressure overload, [facility] fine (mean 2), TAVR fine (mean 11, no AI). Severe TR (note that severe TR preceded ICD implant). Ext PASP 28 and est RA 15. Similar to
prior echo 11/23/2022 but on prior echo est PASP 55 and LA was enlarged
Cath 08/2022:
[place] CAD as described with patent bypass grafts including SOMMERS-LAD, SVG-OM1-OM2, and SVG-RCA
Findings are similar to the prior study from 09/21/2020
She will have a pre TAVR chest CTA once her renal fun
Physical Exam
Vital Signs/Labs
Vital Signs
Temp Pulse Resp BP Pulse Ox
98.1 F 86 18 124/80 94
08/25/23 07:00 08/25/23 08:36 08/25/23 07:00 08/25/23 08:36 08/25/23 07:00
08/24/23 08/25/23 08/26/23
06:59 06:59 06:59
Actual Weight 77.139 kg 76.884 kg
08/14/23 03:24
08/25/23 06:52
PT 24.9 Sec (11.4-14.6) H 08/25/23 06:51
INR 2.27 08/25/23 06:51
APTT 49.6 Sec (23.4-35.0) H 08/12/23 16:13
Magnesium 1.9 mg/dl (1.6-2.3) 08/25/23 06:52
Triglycerides 78 mg/dl (10-149) 08/13/23 04:06
LDL Cholesterol, Calc 56 mg/dl 08/13/23 04:06
VLDL Cholesterol, Calc 15 mg/dl (0-30) 08/13/23 04:06
HDL Cholesterol 27 mg/dl 08/13/23 04:06
Free T4 1.06 ng/dl (0.78-2.19) 08/19/23 06:27
Digoxin 0.8 ng/ml (0.8-2.0) 08/13/23 04:06
08/12/23
15:45
Vvh-H-Dqnsmiupxck Pept 1470
Physical Exam
Constitutional: No acute distress and Comfortable
EENT: Moist mucous membranes
Cardiovascular: Systolic murmur absent, Rhythm/rate is irregular, Pedal edema present and JVD present
Respiratory: Respiratory effort normal and Lungs clear to auscul.
GI: Soft, Distention absent and Flat
Neuro/Psych: AO x 3
Data Reviewed
-
Date of Service: August 25, 2023
EKG: Other (Tele: A fib 90s)
Labs: Labs Reviewed by me
[2023-08-25 11:16] LABS: Hematocrit 34.9 % (37.0-47.0); Hemoglobin 12.2 g/dL (12.0-16.0); Mean Corpuscular Hgb 30.7 pg (27.0-31.0); Mean Corpuscular Volume 87.9 fL (81.0-99.0); Mean Platelet Volume 10.5 fL (7.4-10.4); Platelet Count 141 10^3/uL (130-400); Red Blood Cell Count 3.97 10^6/uL (4.20-5.40); White Blood Cell Count 4.6 10^3/uL (4.8-10.8)
--- NOTE | 2023-08-25 11:18 | CM ---
Addendum entered by Aminata Norman 08/25/23 12:51:
[facility] with no beds per return call from Admissions for the weekend.
Original Note:
CM called to [facility] about patient and await call back. CM also called to [facility] and left VM on answering machine for the admissions department. [facility] also left VM requesting call back. CM will talk to patient and about
additional options. CM will continue to follow for discharge planning needs.
Plan; SNF; continue to look for available bed
[2023-08-25 12:19] LABS: Glucose - Point of Care 147 mg/dl (70-99)
--- NOTE | 2023-08-25 13:35 | W.PN.HOSP.TC ---
Addendum entered and electronically signed by Christo Madrigal MD 08/26/23 15:19:
Ultrasound of the abdomen-prior cholecystectomy. No biliary dilatation. Simple left renal cyst. Small volume right upper quadrant status
Discussed with patient and at bedside
Original Note:
Today's Communication/Plan
-
Urine osm and urine sodium
Assessment / Plan
Assessment / Plan
CVS: S1-S2 irregular, sm at RHB
Chest: CTA B/L
Abdomen: Soft, NT / Bowel sounds present
Extremities: mild LE edema,no UE edema
FOUNDRY HAND: tremor slightly better
77-year-old female with history of CHF was treated at [facility] for CHF and was discharged to a local rehab.� Patient still had a lot of edema which got worse which prompted her to come to [facility].� Patient has shortness
of breath and feels really tired and puffy all over.� Clothes not fitting her anymore.� Denies any chest pain
# Acute on chronic heart failure with PEF
Also suspect right heart failure-Type unknown
Patient denies sleep apnea but-may need a sleep study given findings on the echo.
Follow creatinine closely with CKD, stable at this time
Troponin negative for ischemia
Intake output charting and daily weights
Not on ROSALIND inhibitor likely secondary to elevated creatinine.
SGLT2 inhibitor cost prohibitive
Echo 08/15/2023-normal LV systolic function. Dilated RV. Normal RV contractility. Septal flattening in diastole consistent with RV volume overload. Seen Bowen mechanical mitral valve replacement well-seated. TAVR well-seated. Severely dilated
atrium. Severe TR. Pulmonary pressure 28 mmHg.
Cardio eval appreciated Transitioned to PO Torsemide 40 mg BID and Zaroxolyn 5 mg //, Aldactone 25 mg daily, potassium supplementation 40 mg daily
May need to restart BB
33 lb weight loss
# Elevated uric acid level with gouty Tophi-started on allopurinol continue, reduced to renal dosage 50 mg every other day
#Tremors upper ext's
present for months to years as per patient and her
worsening over past few days
suspect underlying essential tremor masked by previous BB therapy since discontinued
Restarted now
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
TAVR was on October 05, 2022.
Severe TR noted
# History of V-fib cardiac arrest requiring ICD placement
# Coronary artery disease with CABG in 2008
# Permanent atrial fibrillation
#Bradycardia earlier in the hospitalisation
#Afib RVR
Metoprolol was discontinued as per cardio then restarted
Dig stopped
Patient however developed Afib RVR 08/23 Cardizem since resumed then stoped and BB restarted
On Coumadin for anticoagulation
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
Cr stable
# Chronic right bundle branch block
# Hypertension
Spironolactone
Torsemide BID
Metolazone MoWeFr
Metoprolol
# Hyperlipidemia-continue statin
# Diabetes type 2 Accu-Cheks and sliding scale coverage
Patient on Prandin
Hemoglobin A1c 7.5
Diabetic and nutrition education provided
# Mild Elevated LFTs likely secondary to hepatic congestion.
repeat
# Mild hyponatremia-from fluid overload hypervolemic in nature
Na 128
continue Torsamide
# History of subdural hemorrhage
#Elevated TSH with normal T4
outpt repeat in 1 month
# Obesity
# DNR
# DVT ppx Therapeutic INR Coumadin
PT/OT appreciated SNF rehab
D/W Cards
Anticipated Discharge: Within 24 hours
Subjective/Interval History
-
Date of Service: August 25, 2023
Objective Data
-
Labs:
Laboratory Results
08/25/23 08/25/23 08/25/23
06:51 06:52 07:15
WBC 4.6 L
Hgb 12.2
Hct 34.9 L
Plt Count 141
PT 24.9 H
INR 2.27
Sodium 128 L
Potassium 3.9
Chloride 94 L
Carbon Dioxide 28
BUN 57 H
Creatinine 1.5 H
Glucose 93
Calcium 9.0
Vital Signs:
Vital Signs
Temp Pulse Resp BP Pulse Ox
97.8 F 79 17 124/75 97
08/25/23 11:00 08/25/23 11:00 08/25/23 11:00 08/25/23 11:00 08/25/23 11:00
I&O
08/24/23 08/25/23 08/26/23
06:59 06:59 06:59
Intake Total 600 / 600 960 / 960
Balance 600 / 600 960 / 960
[2023-08-25 17:14] LABS: Glucose - Point of Care 84 mg/dl (70-99)
[2023-08-25 17:33] LABS: Osmolality Urine 359 mOsm/kg (300-900)
[2023-08-25] MEDS: COUMADIN 2.5 MG PO (17:33)
[2023-08-25] MEDS: LIPITOR 40 MG PO (17:34)
[2023-08-25 17:47] LABS: Urine Sodium 58 mmol/L (30-90)
[2023-08-25] MEDS: AMBIEN 5 MG PO (20:38)
[2023-08-25] MEDS: DESENEX/MITRAZOL/ZEASORB 1 APPLIC TOPICAL (20:39)
[2023-08-25 21:17] LABS: Glucose - Point of Care 98 mg/dl (70-99)
[2023-08-26 03:00] VITALS: BP 112/68
[2023-08-26 06:00] VITALS: BMI 28.8
[2023-08-26 07:00] VITALS: BP 127/69
[2023-08-26 07:22] LABS: INR 2.45; PT 26.5 Sec (11.4-14.6)
[2023-08-26 07:35] LABS: Blood Urea Nitrogen 54 mg/dl (7-17); Calcium 8.9 mg/dl (8.4-10.2); Carbon Dioxide 29 mmol/L (22-30); Chloride 94 mmol/L (98-107); Estimated Creatinine Clearance 28 ml/min; Glucose 66 mg/dl (70-99); Potassium 3.6 mmol/L (3.5-5.1); Sodium 129 mmol/L (135-145)
[2023-08-26 08:22] LABS: Glucose - Point of Care 82 mg/dl (70-99)
[2023-08-26] MEDS: NOVOLOG FLEXPEN-LOW RESISTANCE SC ×2 (08:40→18:11)
[2023-08-26] MEDS: DEMADEX 40 MG PO ×2 (10:09→15:56)
[2023-08-26] MEDS: TOPROL XL 25 MG PO ×2 (10:09→19:52)
[2023-08-26] MEDS: KCL 40 MEQ PO (10:09)
[2023-08-26] MEDS: PRANDIN 0.5 MG PO ×3 (10:10→18:14)
[2023-08-26] MEDS: ZYLOPRIM 50 MG PO (10:18)
[2023-08-26] MEDS: ALDACTONE 25 MG PO (10:18)
[2023-08-26] MEDS: DESENEX/MITRAZOL/ZEASORB 1 APPLIC TOPICAL ×2 (10:20→19:52)
[2023-08-26] MEDS: SAMSCA 15 MG PO (10:20)
[2023-08-26 11:00] VITALS: BP 143/71
[2023-08-26 11:36] LABS: Glucose - Point of Care 209 mg/dl (70-99)
[2023-08-26] MEDS: NOVOLOG FLEXPEN-LOW RESISTANCE 2 UNITS SC (12:56)
[2023-08-26 15:00] VITALS: BP 121/70
--- NOTE | 2023-08-26 15:15 | W.PN.HOSP.TC ---
Today's Communication/Plan
-
BMP in am
Discharge planning
Assessment / Plan
Assessment / Plan
CVS: S1-S2 irregular, sm at RHB
Chest: CTA B/L
Abdomen: Soft, NT / Bowel sounds present
Extremities: mild LE edema,no UE edema
PC TECHNICIAN: tremor slightly better
77-year-old female with history of CHF was treated at [facility] for CHF and was discharged to a local rehab.� Patient still had a lot of edema which got worse which prompted her to come to [facility].� Patient has shortness
of breath and feels really tired and puffy all over.� Clothes not fitting her anymore.� Denies any chest pain
# Acute on chronic heart failure with PEF
Also suspect right heart failure-Type unknown
Patient denies sleep apnea but-may need a sleep study given findings on the echo.
Follow creatinine closely with CKD, stable at this time
Troponin negative for ischemia
Intake output charting and daily weights
Not on ROSALIND inhibitor likely secondary to elevated creatinine.
SGLT2 inhibitor cost prohibitive
Echo 08/15/2023-normal LV systolic function. Dilated RV. Normal RV contractility. Septal flattening in diastole consistent with RV volume overload. Seen Bowen mechanical mitral valve replacement well-seated. TAVR well-seated. Severely dilated
atrium. Severe TR. Pulmonary pressure 28 mmHg.
Cardio eval appreciated Transitioned to PO Torsemide 40 mg BID and Zaroxolyn 5 mg //, Aldactone 25 mg daily, potassium supplementation 40 mg daily
36 lb weight loss
# Elevated uric acid level with gouty Tophi-started on allopurinol continue, reduced to renal dosage 50 mg every other day
#Tremors upper ext's
present for months to years as per patient and her
worsening over past few days
suspect underlying essential tremor masked by previous BB therapy since discontinued
Restarted now
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
TAVR was on October 05, 2022.
Severe TR noted
# History of V-fib cardiac arrest requiring ICD placement
# Coronary artery disease with CABG in 2008
# Permanent atrial fibrillation
#Bradycardia earlier in the hospitalisation
#Afib RVR
Metoprolol was discontinued as per cardio then restarted
Dig stopped
Patient however developed Afib RVR 08/23 Cardizem since resumed then stoped and BB restarted
On Coumadin for anticoagulation
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
Cr stable
# Chronic right bundle branch block
# Hypertension
Spironolactone
Torsemide BID
Metolazone MoWeFr
Metoprolol
# Hyperlipidemia-continue statin
# Diabetes type 2 Accu-Cheks and sliding scale coverage
Patient on Prandin
Hemoglobin A1c 7.5
Diabetic and nutrition education provided
# Mild Elevated LFTs likely secondary to hepatic congestion.
repeat
# Mild hyponatremia-from fluid overload hypervolemic in nature
Na 129
continue Torsemide
One dose of Samsca today
# History of subdural hemorrhage
#Elevated TSH with normal T4
outpt repeat in 1 month
# Obesity
# DNR
# DVT ppx Therapeutic INR Coumadin
PT/OT appreciated SNF rehab
D/W Cards
Anticipated Discharge: Within 24 hours
Subjective/Interval History
-
Date of Service: August 26, 2023
Objective Data
-
Labs:
Laboratory Results
08/26/23
05:59
PT 26.5 H
INR 2.45
Sodium 129 L
Potassium 3.6
Chloride 94 L
Carbon Dioxide 29
BUN 54 H
Creatinine 1.6 H
Glucose 66 L
Calcium 8.9
Vital Signs:
Vital Signs
Temp Pulse Resp BP Pulse Ox
97.3 F 81 17 143/71 97
08/26/23 11:00 08/26/23 11:00 08/26/23 11:00 08/26/23 11:00 08/26/23 11:00
I&O
08/25/23 08/26/23 08/27/23
06:59 06:59 06:59
Intake Total 960 / 960 1140 / 1140
Balance 960 / 960 1140 / 1140
[2023-08-26 17:15] LABS: Glucose - Point of Care 84 mg/dl (70-99)
[2023-08-26] MEDS: COUMADIN 2.5 MG PO (18:14)
[2023-08-26] MEDS: LIPITOR 40 MG PO (18:15)
[2023-08-26 19:34] VITALS: BP 135/81
[2023-08-26 21:34] LABS: Glucose - Point of Care 156 mg/dl (70-99)
[2023-08-26] MEDS: AMBIEN 5 MG PO (23:33)
[2023-08-26 23:45] VITALS: BP 129/79
[2023-08-27 04:27] VITALS: BP 142/78
[2023-08-27 04:49] VITALS: BMI 27.7
[2023-08-27 06:56] LABS: Blood Urea Nitrogen 59 mg/dl (7-17); Calcium 9.3 mg/dl (8.4-10.2); Carbon Dioxide 27 mmol/L (22-30); Chloride 93 mmol/L (98-107); Estimated Creatinine Clearance 30 ml/min; Glucose 79 mg/dl (70-99); Potassium 3.5 mmol/L (3.5-5.1); Sodium 132 mmol/L (135-145); eGFR 35.23
[2023-08-27 07:00] VITALS: BP 125/61
[2023-08-27 08:30] LABS: Glucose - Point of Care 85 mg/dl (70-99)
[2023-08-27] MEDS: DEMADEX 40 MG PO (08:31)
[2023-08-27] MEDS: PRANDIN 0.5 MG PO ×2 (08:32→12:22)
[2023-08-27] MEDS: KCL 40 MEQ PO (08:32)
[2023-08-27] MEDS: ALDACTONE 25 MG PO (08:32)
[2023-08-27] MEDS: NOVOLOG FLEXPEN-LOW RESISTANCE SC (08:33)
[2023-08-27] MEDS: ZAROXOLYN 5 MG PO (08:33)
[2023-08-27] MEDS: DESENEX/MITRAZOL/ZEASORB 1 APPLIC TOPICAL (08:33)
[2023-08-27] MEDS: TOPROL XL 25 MG PO (08:33)
--- NOTE | 2023-08-27 09:45 | CM ---
Addendum entered by Kalyn Henrietta 08/27/23 14:31:
Transport at 3:30PM - Facility and pt aware
Addendum entered by [facility] 08/27/23 14:06:
Discussed IMM with pt and
Pt for transfer to [facility]
Report - [phone]
Fax - [phone]
Addendum entered by [facility] 08/27/23 10:50:
Pt and her made aware pt accepted to [facility]
Addendum entered by [facility] 08/27/23 10:16:
Spoke with Sonia at [facility] - bed available today. Will need updated covid
made made aware
Original Note:
Pt medically ready for d/c
Called [facility] and spoke to Leon[facility] - no beds available
[facility] - no beds available
[facility] - for Sonia regarding bed availability. Awaiting return call
--- NOTE | 2023-08-27 10:58 | W.HF.CON ---
Heart Failure
- LV Function
Left ventricular function study result: LV Ejection fraction >40%
Ejection Fraction Percentage: 55-60
- ARNI
Patient already on ARNI: No
Heart Failure ARNI Not Indicated: LV Ejection Fraction >/= 40%
- ACEI/ARB
Patient already on ACEI/ARB: No
Heart Failure ACEI/ARB Not Indicated: LV Ejection Fraction > 40%
- Beta Dannielle
Patient already on Evidence Based Beta Dannielle: Yes
- Mineralocorticord Receptor Antagonist
Patient already on MRA: Yes
- SGLT-2 Inhibitor
Patient already on SGLT-2 Inhibitor: No
Heart Failure SGLT-2 Inhibitor Not Indicated: LV Ejection Fraction >40%
- Afib Anticoagulation
Patient already on Anticoagulation for Afib: Yes
- NYHA CHF Classification
NYHA CHF Classification Level: Class III - Symptoms w/ min exertion, interferes w/ nml daily activity
- ACC/AHA Stage
ACC/AHA Stage: Stage C: Symptomatic Heart Failure
[2023-08-27 11:00] VITALS: BP 122/69
[2023-08-27 11:40] LABS: COVID-19 Antigen Negative (Negative)
[2023-08-27 12:10] LABS: Glucose - Point of Care 255 mg/dl (70-99)
[2023-08-27] MEDS: NOVOLOG FLEXPEN-LOW RESISTANCE 3 UNITS SC (12:22)
--- NOTE | 2023-08-27 13:27 | W.PN.HOSP.TC ---
Today's Communication/Plan
-
Discharge to rehab
Assessment / Plan
Assessment / Plan
CVS: S1-S2 irregular, sm at RHB
Chest: CTA B/L
Abdomen: Soft, NT / Bowel sounds present
Extremities: mild LE edema,no UE edema
STRAP CUTTER: tremor slightly better
77-year-old female with history of CHF was treated at [facility] for CHF and was discharged to a local rehab.� Patient still had a lot of edema which got worse which prompted her to come to [facility].� Patient has shortness
of breath and feels really tired and puffy all over.� Clothes not fitting her anymore.� Denies any chest pain
# Acute on chronic heart failure with PEF
Also suspect right heart failure-Type unknown
Patient denies sleep apnea but-may need a sleep study given findings on the echo.
Follow creatinine closely with CKD, stable at this time
Troponin negative for ischemia
Intake output charting and daily weights
Not on ROSALIND inhibitor likely secondary to elevated creatinine.
SGLT2 inhibitor cost prohibitive
Echo 08/15/2023-normal LV systolic function. Dilated RV. Normal RV contractility. Septal flattening in diastole consistent with RV volume overload. Seen Bowen mechanical mitral valve replacement well-seated. TAVR well-seated. Severely dilated
atrium. Severe TR. Pulmonary pressure 28 mmHg.
Cardio eval appreciated Transitioned to PO Torsemide 40 mg BID and Zaroxolyn 5 mg //, Aldactone 25 mg daily, potassium supplementation 40 mg daily
36 lb weight loss
# Elevated uric acid level with gouty Tophi-started on allopurinol continue, reduced to renal dosage 50 mg every other day
#Tremors upper ext's
present for months to years as per patient and her
worsening over past few days
suspect underlying essential tremor masked by previous BB therapy since discontinued
Restarted now
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
TAVR was on October 05, 2022.
Severe TR noted
# History of V-fib cardiac arrest requiring ICD placement
# Coronary artery disease with CABG in 2008
# Permanent atrial fibrillation
#Bradycardia earlier in the hospitalization
#Afib RVR
Metoprolol was discontinued as per cardio then restarted
Dig stopped
Patient however developed Afib RVR 08/23 Cardizem since resumed then stoped and BB restarted
On Coumadin for anticoagulation
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
Cr stable
# Chronic right bundle branch block
# Hypertension
Spironolactone
Torsemide BID
Metolazone MoWeFr
Metoprolol
# Hyperlipidemia-continue statin
# Diabetes type 2 Accu-Cheks and sliding scale coverage
Patient on Prandin
Hemoglobin A1c 7.5
Diabetic and nutrition education provided
# Mild Elevated LFTs likely secondary to hepatic congestion.
repeat
# Mild hyponatremia-from fluid overload hypervolemic in nature
Na 132 today
continue Torsemide
Got a dose of Samsca 08/26/23
# History of subdural hemorrhage
#Elevated TSH with normal T4
outpt repeat in 1 month
# Obesity
# DNR
# DVT ppx Therapeutic INR Coumadin
PT/OT appreciated SNF rehab
D/W Cards
D/W at bed side re weight .
Both of them are aware that this is going to be her dry weight moving forward and any change from this weight needs to be addressed. If there is worsening renal function rehab nurse to contact Dr. Mcgovern for adjusting diuretics.
Since she is mostly euvolemic and this is a change in her diuretic regimen I would check weekly BMP for a few weeks
Discharge time 40 min
Anticipated Discharge: Today
Subjective/Interval History
-
Date of Service: August 27, 2023
Objective Data
-
Labs:
Laboratory Results
08/27/23
05:45
Sodium 132 L
Potassium 3.5
Chloride 93 L
Carbon Dioxide 27
BUN 59 H
Creatinine 1.5 H
Glucose 79
Calcium 9.3
Vital Signs:
Vital Signs
Temp Pulse Resp BP Pulse Ox
98.1 F 79 18 122/69 98
08/27/23 11:00 08/27/23 11:00 08/27/23 11:00 08/27/23 11:00 08/27/23 11:00
I&O
08/26/23 08/27/23 08/28/23
06:59 06:59 06:59
Intake Total 1140 / 1140 1437 / 1437
Balance 1140 / 1140 1437 / 1437
--- NOTE | 2023-08-27 13:32 | W.DS.TRANS ---
Addendum entered and electronically signed by Christo Madrigal MD 08/27/23 16:25:
Dictation- [id number]
Original Note:
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
-
Discharge Instructions:
Sleep Apnea Risk Intermediate
Discharge Diagnosis/Procedures Acute on chronic heart failure with preserved
ejection fraction, gout, tremors, history of
mechanical mitral valve replacement and TAVR, V-
fib cardiac arrest requiring ICD placement,
coronary disease, permanent atrial fibrillation,
chronic kidney disease, hypertension,
hyperlipidemia, diabetes, elevated transaminases
, hyponatremia,
Diet 2 Gram Sodium,Restrict fluids to 48 oz,Diabetic,
Carb Controlled
Activity As tolerated,With assistance
Bathing Restrictions OK to Shower
Blood Work Thyroid function tests in 1 month .BMP 3-4 days.
Then weekly times 4 to make sure renal
function stable.
INR 2-3 days
Uric acid level in 2 months
Other Services PT,OT
Specialty Instructions Weigh Daily
Stop these medications: Stop Norvasc, digoxin, diltiazem
Instructions: *CBC Heart Failure Instructions
Stand-Alone Forms:
Changes to Home Medications: Yes
Discharge Medications:
DC Medications w/original date entered in [employer]
atorvastatin 40 mg tablet 40 mg PO QPM High cholesterol 09/22/19
repaglinide 0.5 mg tablet 0.5 mg PO AC Diabetes 09/22/19
warfarin 2.5 mg tablet 2.5 mg PO [id number]@1700 Blood clot prevention/tx 08/25/22
acetaminophen 325 mg tablet 650 mg PO Q4HPRN PRN mild pain/fever >101F 11/22/22
levalbuterol HCl 0.63 mg/3 mL solution for nebulization 0.63 mg inhalation R Q6HPRN PRN sob/wheezing 11/22/22
bisacodyl 10 mg rectal suppository (Dulcolax (bisacodyl)) 10 mg VA DAILYPRN PRN if no bm aftr mom 08/12/23
potassium chloride 20 mEq tablet,extended release(part/cryst) 20 meq PO BID Electrolyte Repletion 08/12/23
sodium phosphates 19 gram-7 gram/118 mL enema (Fleet Enema) 118 ml VA DAILYPRN PRN if no bm aftr dulcolax 08/12/23
allopurinol 100 mg tablet 50 mg PO Q48H Gout #30 tabs 08/26/23
metolazone 5 mg tablet 5 mg PO MOWEFR Heart Failure #0 tabs 08/26/23
metoprolol succinate 25 mg tablet,extended release 24 hr 25 mg PO BID Arrhythmia #0 tabs 08/26/23
spironolactone 25 mg tablet 25 mg PO DAILY Heart Failure #0 tabs 08/26/23
torsemide 20 mg tablet 40 mg PO BID Fluid retention/Swelling #0 tabs 08/26/23
zolpidem 5 mg tablet 5 mg PO HSPRN PRN sleep #2 tabs 08/26/23
Home Medication Changes
Norvasc discontinued
Torsemide dose increased, metoprolol dose decreased
Diltiazem discontinued
Allopurinol is new
Metolazone dose changed to standing doses
Pending Results: No
== END 2023-08-27 15:24 | DRG 291 ==
LOC: 3 WEST ACU 18:09
PROVIDERS: Internal Medicine; Registered Nurse; ADMITTING PHYSICIAN Hospitalist; EMERGENCY PHYSICIAN Emergency Medicine; FAMILY PHYSICIAN Internal Medicine; OTHER PHYSICIAN Internal Medicine
DX: I13.0 Hypertensive heart and chronic kidney disease with heart failure and stage 1 through stage 4 chronic kidney disease, or unspecified chronic kidney disease (principal); I50.33 Acute on chronic diastolic (congestive) heart failure; E87.1 Hypo-osmolality and hyponatremia; I48.21 Permanent atrial fibrillation; I25.810 Atherosclerosis of coronary artery bypass graft(s) without angina pectoris; N18.4 Chronic kidney disease, stage 4 (severe); E78.5 Hyperlipidemia, unspecified; Z95.810 Presence of automatic (implantable) cardiac defibrillator; E66.09 Other obesity due to excess calories; Z66 Do not resuscitate; Z68.27 Body mass index [BMI] 27.0-27.9, adult; Z79.01 Long term (current) use of anticoagulants; E11.22 Type 2 diabetes mellitus with diabetic chronic kidney disease; I07.1 Rheumatic tricuspid insufficiency; E87.6 Hypokalemia; M1A.9XX1 Chronic gout, unspecified, with tophus (tophi)
CPT/HCPCS: 71046; 76700; 80048; 80053; 80061; 80162; 81003; 82248; 82962; 83036; 83735; 83880; 83930; 83935; 84100; 84300; 84436; 84439; 84443; 84484; 84550; 85025; 85027; 85610; 85730; 87070; 87811; 93005; 93306; 97116; 97163; 97166; 97530; 97535; 99285

== ENCOUNTER → 2023-11-26 15:02 | Outpatient (REF) | payer MEDICARE, OTHER, SELFPAY ==
[2023-11-26 17:11] LABS: Blood Urea Nitrogen 102 mg/dl (7-17); Carbon Dioxide 24 mmol/L (22-30); Chloride 97 mmol/L (98-107); Glucose 47 mg/dl (70-99); Potassium 3.8 mmol/L (3.5-5.1); Sodium 136 mmol/L (135-145); eGFR 30.13
== END ==
LOC: REG 15:02
PROVIDERS: ATTENDING PHYSICIAN Internal Medicine; FAMILY PHYSICIAN Family Medicine; OTHER PHYSICIAN Nurse Practitioner
DX: I50.33 Acute on chronic diastolic (congestive) heart failure (principal)
CPT/HCPCS: 36415; 80048

== ENCOUNTER 2024-05-01 22:07 | Inpatient (IN) | payer MEDICARE, OTHER, SELFPAY ==
[2024-05-01 19:21] VITALS: BP 104/77; BMI 32.5
[2024-05-01 19:24] VITALS: BP 103/77
[2024-05-01 20:00] VITALS: BP 113/59
[2024-05-01 20:08] LABS: % Basophils 1.7 % (0-2); % Eosinophils 4.6 % (0-6); % Immature Granulocytes 0.3 % (0-0.5); % Lymphocytes 18.3 % (20.5-51.1); % Monocytes 15.4 % (1.7-9.3); % Neutrophils 59.7 % (42.2-75.2); Absolute Basophils 0.1 10^3/uL (0-0.2); Absolute Eosinophils 0.2 10^3/uL (0-0.7); Absolute Lymphocytes 0.6 10^3/uL (1.2-3.4); Absolute Monocytes 0.5 10^3/uL (0.1-0.6); Absolute Neutrophils 2.1 10^3/uL (1.4-6.5); Hematocrit 33.1 % (37.0-47.0); Hemoglobin 11.3 g/dL (12.0-16.0); Mean Corp Hgb Conc. 34.1 g/dL (33.0-37.0); Mean Corpuscular Hgb 32.8 pg (27.0-31.0); Mean Corpuscular Volume 95.9 fL (81.0-99.0); Mean Platelet Volume 11.2 fL (7.4-10.4); Nucleated Red Blood Cells % 0.6 %; Platelet Count 143 10^3/uL (130-400); Red Blood Cell Count 3.45 10^6/uL (4.20-5.40); Red Cell Dist. Width 15.7 % (11.5-14.5); White Blood Cell Count 3.5 10^3/uL (4.8-10.8)
[2024-05-01 20:20] LABS: INR 3.54
[2024-05-01 20:21] LABS: APTT 52.7 Sec (23.4-35.0)
--- NOTE | 2024-05-01 20:29 | ED.GENMED ---
History of Present Illness
General
Chief Complaint: Rectal Bleeding
Source: patient, records, spouse, family and ambulance crew
Time Seen by Provider: 05/01/24 19:25
History of Present Illness
History of Present Illness:
78-year-old female with extensive cardiac medical history, clt-[id number]-[id number] diabetes, previous GI bleeding presenting to the emergency department for evaluation after she sat down on her chairlift to go up stairs and she felt a medina of
blood/liquid from her rectal area, attempted to get to the bathroom but noticed continuous bleeding. Patient's son noticed the bleeding and contacted EMS who brought patient to the ER for further evaluation. Patient notes that 2 weeks ago she also
had a little bit of blood from the rectal area but states there was not as much and symptoms resolved. She denies any abdominal pain, fevers or infectious symptoms, chest pain, shortness of breath, lightheadedness/dizziness or any other concerns.
Patient is on Coumadin due to multiple cardiac issues, last INR check was maybe 2 weeks ago and patient believes she had a therapeutic INR. Last had a colonoscopy a few years ago which she reports showed no complications.
Past History
Past History
ED Past Medical History: Arrthythmia (afib), CAD, CHF, HTN, Hypercholesterolemia, NIDDM, Valvular disease and Other (Pneumonia, out of hospital cardiac arrest, ventricular fibrillation, PVCs, permanent atrial fibrillation, GIB)
ED Past Surgical History: Cardiac and Cholecystectomy
Social History
Tobacco: Non-smoker
Alcohol: None
Drug: None
Personal:
Living: with family
Employment: Retired
Family History
Family History: Other (Noncontributory)
Review of Systems
Review of Systems
All Other Systems: ROS reviewed and negative except as documented in HPI and ROS
Phy Exam
Physical Exam
Physical Exam:
GENERAL: Alert , in no apparent distress
EYE: clear conjunctiva b/l
HEAD: NCAT
ENT: mmm.
CARDIAC: Regular rate and rhythm .
LUNGS: Clear breath sounds bilaterally, no acute respiratory distress, no wheezes/rales/rhonchi
ABDOMEN: Soft, without focal tenderness, no r/g, no cvat
RECTAL EXAM: Chaperoned by ED TOLU Sarkar: 2 hemorrhoids, 1 thrombosed and 1 nonthrombosed but no active bleeding. Bright red blood, no clotting
NEUROLOGICAL: Alert and oriented x 3
SKIN: Warm and dry, skin intact.
MUSCULOSKELETAL: well perfused.
PSYCH: Normal and appropriate interaction. But very anxious
Scores
Heart Failure Risk
Heart Failure Risk Score: Not Applicable
Heart Score for Chest Pain Patients
STEMI patient?: Not applicable
Withdrawal Assessment of Alcohol
Withdrawal Assessment Completed?: Not applicable
Course
Orders/Labs/Results
Orders:
Orders
05/01/24 19:44
EKG [Electrocardiogram (*1)] Urgent
Reason for Study: Other
Other Reason for Exam: rectal bleeding
Cardiac Monitoring- Treatment ONCE
IV Insert/Care/Rem.- Treatment PRN
O2 Therapy [RESP] Urgent
Titrate/Wean O2 to maintain O2 sat greater than (%): 93
Special Instructions: MAINTAIN CONTINOUS O2 SATS > OR = 93%
Pulse Ox/spot Check [RESP] Urgent
Quantity: 1
Special Instructions: ON ROOM AIR
05/01/24 19:45
EKG- Treatment ONCE
05/01/24 19:59
Type+Screen Urgent
Complete Blood Count/With Diff Urgent
Comprehensive Metabolic Panel Urgent
PTT Urgent
Prothrombin Time Urgent
Abnormal Lab Results
05/01/24
19:59
WBC 3.5 L 10^3/uL
(4.8-10.8)
RBC 3.45 L 10^6/uL
(4.20-5.40)
Hgb 11.3 L g/dL
(12.0-16.0)
Hct 33.1 L %
(37.0-47.0)
MCH 32.8 H pg
(27.0-31.0)
RDW 15.7 H %
(11.5-14.5)
MPV 11.2 H fL
(7.4-10.4)
Absolute Lymphs (auto) 0.6 L 10^3/uL
(1.2-3.4)
Lymphocytes % 18.3 L %
(20.5-51.1)
Monocytes % 15.4 H %
(1.7-9.3)
PT 36.0 H Sec
(11.4-14.6)
APTT 52.7 H Sec
(23.4-35.0)
Sodium 134 L mmol/L
(135-145)
Potassium 5.2 H mmol/L
(3.5-5.1)
Chloride 97 L mmol/L
(98-107)
BUN 93 H mg/dl
(7-17)
Creatinine 2.3 H mg/dL
(0.6-1.0)
Glucose 200 H mg/dl
(70-99)
Total Bilirubin 1.9 H mg/dl
(0.2-1.3)
AST 74 H U/L
(14-36)
Alkaline Phosphatase 134 H U/L
(38-126)
05/01/24 19:59
05/01/24 19:59
Vital Signs
Initial and Last Documented VS:
Initial Vital Signs
Temp Pulse Resp BP Pulse Ox
98.1 F 103 18 104/77 97
05/01/24 19:21 05/01/24 19:21 05/01/24 19:21 05/01/24 19:21 05/01/24 19:21
Last Documented Vital Signs
Temp Pulse Resp BP Pulse Ox
98.1 F 92 17 119/79 97
05/01/24 19:21 05/01/24 20:45 05/01/24 20:45 05/01/24 20:30 05/01/24 20:45
MDM/Problems Addressed
Differential Diagnosis Includes:
Hemorrhoidal bleeding external versus internal, diverticular bleed, malignancy, anemia
MDM/Problems Addressed:
78-year-old female presenting to the emergency department for evaluation of sudden onset rectal bleeding occurring approximately 30 minutes prior to arrival to the ER. Patient asymptomatic at present. Blood pressure is a little low, but remaining
vital signs are within normal limits. Patient is overall well-appearing and in no acute distress. Will establish 2 IVs. Labs including INR ordered. Considered reversing Coumadin however given patient's current stability will hold on doing this
at this time unless INR is significantly supratherapeutic. Given patient's age and comorbidities will admit for hemoglobin trending and observation and patient may need GI consultation as well. Both patient and family are in agreement with this
plan.
Chronic conditions affecting care: Arrhythmia
*Pulse Oximetry
Patient hypoxic: no
*EKG
Interpreted by ED Provider?: Yes
Heart Rate: 97
Rate: normal
Rhythm: a-fib
*Sh[employer]ologist Interpretation
Rhythm: a-fib
*Critical Care Note
Total Time (30-74mins, 75-104mins- exclusive of procedures): Not Applicable
Data Reviewed
Review of Other/Old Records Reveals: Labs, Records and Discharge Summary
Source: patient and records
Comment
Comment:
Colonoscopy from October 2021 showing: - One 5 mm polyp in the sigmoid colon, removed with a
cold snare. Resected and retrieved.
- One 10 mm polyp in the descending colon, removed
using injection-lift and a hot snare. Resected and
retrieved. Clip was placed.
- One 5 mm polyp in the transverse colon, removed
using injection-lift and a hot snare. Resected and
retrieved.
- One 20 mm polyp in the transverse colon, s/p EMR.
Clips (MR conditional) were placed.
Patient Management
Discussion with other providers: Hospitalist
Escalation/DeEscalation of care consider admission/obs:
Patient's labs show chronic leukopenia, mild anemia with a hemoglobin of 11.3, therapeutic INR of 3.5 and a mild acute kidney injury. Patient's blood pressure remains stable at 119/79, heart rate remains in the 90s and patient does not have any
further bleeding. Given the fact she is on Coumadin combined with her comorbidities we will still admit for close monitoring and hemoglobin trending. Hospitalist team is aware and accepts for continued evaluation and treatment.
ED Attending Note
-
Portions of this chart may have been created with voice recognition software.� Occasional wrong word or��sound alike� substitutions may have occurred due to the inherent limitations of voice recognition software.
Discharge Plan
Departure
Patient Disposition: Admit
Date of Disposition: 05/01/24
Time of Disposition: 20:38
Presentation/result/management discussed w/ accepting MD/DO: Hospitalist
Discharge Problem:
Rectal bleeding, JOJO (acute kidney injury)
Prescriptions:
No Action
atorvastatin 40 MG tablet
40 mg PO QPM
repaglinide 0.5 MG tablet
0.5 mg PO AC
Patient Comments:
warfarin 2.5 mg Tablet
2.5 mg PO QPM
levalbuterol HCl 0.63 mg/3 mL solution for nebulization
0.63 mg INHALATION R Q8HPRN PRN (Reason: sob/wheezing)
metolazone 5 mg Tablet
5 mg PO MOWEFR Qty: 0 0RF
allopurinol 100 mg Tablet
50 mg PO Q48H Qty: 30 0RF
spironolactone 25 mg Tablet
25 mg PO DAILY Qty: 0 0RF
zolpidem 5 mg Tablet
5 mg PO HSPRN PRN (Reason: sleep) Qty: 2 0RF
metoprolol succinate 25 mg Tablet Extended Release 24 Hr
25 mg PO BID Qty: 0 0RF
potassium chloride 10 mEq Capsule, Extended Release
30 meq PO DAILY
potassium chloride 10 mEq Capsule, Extended Release
10 meq PO QPM
Theragen Tablet
1 tab PO DAILY
acetaminophen [Tylenol Extra Strength] 500 mg Tablet
1,000 mg PO Q8HPRN PRN (Reason: mild pain)
ferrous sulfate 325 mg (65 mg iron) Tablet
325 mg PO DAILY
nitroglycerin 0.4 mg Tablet, Sublingual
0.4 mg SUBLINGUAL [id number] PRN (Reason: chest pain)
docusate sodium [Colace] 100 mg Capsule
100 mg PO DAILY
senna 8.6 mg Capsule
8.6 mg PO DAILYPRN PRN (Reason: constipation)
omega 4-pir-ptl-fish oil [Fish Oil] 1,000 (120-180) mg Capsule
1 cap PO DAILY
psyllium husk 0.4 gram Capsule
0.4 g PO DAILY
torsemide 20 mg Tablet
20 mg PO QPM
torsemide 20 mg tablet
40 mg PO DAILY
Referrals:
UNKNOWN - PT DOES,NOT KNOW [Family Provider] -
Interventions
Interventions:
*Risk Screen - Suicide Last Done: 05/01/24 19:21
*General Assessment Last Done: 05/01/24 19:21
*Neglect/Abuse Screening Last Done: 05/01/24 19:21
ED- Fall Risk Assessment Last Done: 05/01/24 19:21
*ED COVID-19 Vaccine History Last Done: 05/01/24 19:21
Discharge Date and Time
Print Language: DIVEHI
[2024-05-01 20:30] VITALS: BP 119/79
[2024-05-01 20:31] LABS: ALT (SGPT) 26 U/L (0-35); AST (SGOT) 74 U/L (14-36); Albumin 4.6 g/dl (3.5-5.0); Alkaline Phosphatase 134 U/L (38-126); Blood Urea Nitrogen 93 mg/dl (7-17); Calcium 10.2 mg/dl (8.4-10.2); Carbon Dioxide 23 mmol/L (22-30); Chloride 97 mmol/L (98-107); Estimated Creatinine Clearance 18 ml/min; Glucose 200 mg/dl (70-99); Potassium 5.2 mmol/L (3.5-5.1); Sodium 134 mmol/L (135-145); Total Bilirubin 1.9 mg/dl (0.2-1.3); Total Protein 7.1 g/dl (6.3-8.2); eGFR 20.96
[2024-05-01 21:00] VITALS: BP 105/66
--- NOTE | 2024-05-01 21:18 | HPS.HSE ---
Addendum entered and electronically signed by Chhaya Valencia MD 05/01/24 21:21:
IV Protonix 40 BID started.
Original Note:
Family Physician
-
Family Physician: Pastor Kolb
Chief Complaint
-
rectal bleeding
History of Present Illness
78-year-old female past medical history of chronic HFpEF, mechanical mitral valve, TAVR, ventricular fibrillation status post ICD, CAD status post CABG, chronic right bundle branch block, permanent atrial fibrillation, CKD 4, hypertension,
hyperlipidemia, type 2 diabetes, gout, tremors, subdural hemorrhage, obesity, presenting with rectal bleeding today. She sat down on her chairlift to go up stairs and felt a medina of blood/liquid from her rectal area. Attempted to get to the
bathroom but noticed continuous bleeding. Son contacted EMS. 2 weeks ago she had a little bit of blood from the rectal area which resolved spontaneously. She denies abdominal pain, fevers, chest pain or shortness of breath, lightheadedness or
dizziness.
Patient's INR was last checked 2 weeks ago every time she believes she had therapeutic INR. She had colonoscopy [address] Bullard which was unremarkable[address]
Patient denies smoking or alcohol use.
Medical History
Past Medical History
Past Medical History: Reports Other (chronic HFpEF, mechanical mitral valve, TAVR, ventricular fibrillation status post ICD, CAD status post CABG, chronic right bundle branch block, permanent atrial fibrillation, CKD 4, hypertension, hyperlipidemia,
type 2 diabetes, gout, tremors, subdural hemorrhage, obesity,)
Past Surgical History: Reports Other ( Cardiac and Cholecystectomy)
Social History
Tobacco: Non-smoker
Alcohol: None
Drug: None
Family History
Family History: Not pertinent
Allergies / Home Medications
Allergies reflects when Allergies were last updated in [employer].
Home Medications with original date entered in [employer]
Allergy/Medication List:
Allergies
Allergy/AdvReac Type Severity Reaction Status Date / Time
No Known Allergies Allergy Verified 05/01/24 19:20
Home Medications
atorvastatin 40 mg tablet 40 mg PO QPM High cholesterol 09/22/19
repaglinide 0.5 mg tablet 0.5 mg PO AC Diabetes 09/22/19
warfarin 2.5 mg tablet 2.5 mg PO QPM Blood clot prevention/tx 08/25/22
levalbuterol HCl 0.63 mg/3 mL solution for nebulization 0.63 mg inhalation R Q8HPRN PRN sob/wheezing 11/22/22
allopurinol 100 mg tablet 50 mg (1/2 x 100 mg) PO Q48H Gout #30 tabs 08/26/23
metolazone 5 mg tablet 5 mg PO MOWEFR Heart Failure #0 tabs 08/26/23
metoprolol succinate 25 mg tablet,extended release 24 hr 25 mg PO BID Arrhythmia #0 tabs 08/26/23
spironolactone 25 mg tablet 25 mg PO DAILY Heart Failure #0 tabs 08/26/23
zolpidem 5 mg tablet 5 mg PO HSPRN PRN sleep #2 tabs 08/26/23
acetaminophen 500 mg tablet (Tylenol Extra Strength) 1,000 mg PO Q8HPRN PRN mild pain 05/01/24
docusate sodium 100 mg capsule (Colace) 100 mg PO DAILY 05/01/24
ferrous sulfate 325 mg (65 mg iron) tablet 325 mg PO DAILY 05/01/24
nitroglycerin 0.4 mg sublingual tablet 0.4 mg sublingual [id number] PRN chest pain 05/01/24
omega 6-bsw-gch-fish oil 1,000 mg (120 mg-180 mg) capsule (Fish Oil) 1 cap PO DAILY 05/01/24
potassium chloride 10 mEq capsule,extended release 10 meq PO QPM 05/01/24
potassium chloride 10 mEq capsule,extended release 30 meq PO DAILY 05/01/24
psyllium husk 0.4 gram capsule 0.4 g PO DAILY 05/01/24
sennosides 8.6 mg capsule (senna) 8.6 mg PO DAILYPRN PRN constipation 05/01/24
therapeutic multivitamin 1 tab PO DAILY 05/01/24
torsemide 20 mg tablet 20 mg PO QPM 05/01/24
torsemide 20 mg tablet 40 mg PO DAILY Fluid retention/Swelling 05/01/24
Review of Systems
-
History Source: Patient
A 12 point ROS was completed and negative except as noted: Yes
Constitutional: Reports No Symptoms
EENT: Reports No Symptoms
Respiratory: Reports No Symptoms
Cardiac: Reports No Symptoms
Abdomen/GI: Reports See HPI
: Reports No Symptoms
Musculoskeletal: Reports No Symptoms
Skin: Reports No Symptoms
Neurological: Reports No Symptoms
Endocrine: Reports No Symptoms
Hematologic/Lymphatic: Reports No Symptoms
Psych: Reports No Symptoms
Physical Exam
Vital Signs
Vital Signs
Temp Pulse Resp BP Pulse Ox
98.1 F 89 19 105/66 97
05/01/24 19:21 05/01/24 21:00 05/01/24 21:00 05/01/24 21:00 05/01/24 21:03
Physical Exam
General: Well Developed, Well Nourished and No Apparent Distress
HEENT: NormoCephalic, Moist mucous membranes and Atraumatic
Respiratory: Clear
Cardiac: S1/S2 and Regular Rhythm; No Murmur or Rub
GI: Soft, Non Tender, Non Distended and Normal Bowel Sounds; No Organomegaly
Rectal: Deferred by Provider
Musculoskeletal: No Clubbing, No Cyanosis and No Edema
Skin: No Rash
Neuro: Nonfocal/grossly intact
Laboratory Results
-
05/01/24 19:59
05/01/24 19:59
Laboratory Results
PT 36.0 Sec (11.4-14.6) H 05/01/24 19:59
INR 3.54 05/01/24 19:59
APTT 52.7 Sec (23.4-35.0) H 05/01/24 19:59
Total Bilirubin 1.9 mg/dl (0.2-1.3) H 05/01/24 19:59
AST 74 U/L (14-36) H 05/01/24 19:59
ALT 26 U/L (0-35) 05/01/24 19:59
Alkaline Phosphatase 134 U/L (38-126) H 05/01/24 19:59
Data Reviewed
-
Lab Data: Labs Reviewed by me
Old Records: Reviewed
Impression/Plan
-
IMPRESSION:
PLAN:
# Acute GI bleeding
-Hemoglobin of 11.3 from 12.2
-Rectal exam showed no active bleeding, external hemorrhoids which were not bleeding
-Patient on Coumadin with INR of 3.54
-Difficult situation as patient has mechanical mitral valve with INR goal of 2.5-3.5
-Hold Coumadin
-Recheck INR in the morning, with plan to start heparin drip if INR subtherapeutic
-Type and screen
-Clear liquid diet, n.p.o. past midnight
-GI consulted
# JOJO on CKD stage IV versus progression of CKD 4
# Hyperkalemia
-Creatinine anywhere between 1.5 to 2.1 at baseline
-Potassium 5.2
-Hold potassium supplement
-Hold spironolactone
-Continue torsemide
-Hold metolazone
-Patient apparently does not follow nephrology
-Nephrology consulted
#Mechanical mitral valve
#Slightly Supratherapeutic INR
-Hold Coumadin
-May need to start heparin drip depending on INR tomorrow morning
-Cardiology consulted
Chronic HFpEF
-Appears well compensated and not in acute heart failure
-Continue torsemide
-Hold metolazone, spironolactone
History of TAVR
Ventricular fibrillation status post ICD
CAD status post CABG
Chronic right bundle branch block
Permanent atrial fibrillation
-Continue metoprolol
Essential hypertension
Type 2 diabetes
-Hold repaglinide
-Insulin sliding scale
Hyperlipidemia
-Continue statin
Gout
-Continue allopurinol
History of subdural hemorrhage
History of tremors
Obesity
DNR/DNI
DVT prophylaxis�none
Clear liquids, n.p.o. past midnight
[2024-05-01 22:00] VITALS: BP 110/83
[2024-05-01] MEDS: PROTONIX IV 40 MG IV (23:36)
[2024-05-01] MEDS: AMBIEN 5 MG PO (23:37)
[2024-05-01] MEDS: NSS (PRESERVATIVE FREE) 10 ML IV (23:37)
[2024-05-02] VITALS (8 sets, daily range): BP systolic 112–147; BP diastolic 72–90; BMI 32.5; BMI 31.6
[2024-05-02 01:24] LABS: Glucose - Point of Care 119 mg/dl (70-99)
--- NOTE | 2024-05-02 02:05 | PTCARENOTE ---
Pt admitted to 2S. AAOx3. pleasant. Afib in the monitor. Assessment done and charted. No GI bleed noted. Pt remains NPO. Call valdes within reach.
[2024-05-02 05:34] LABS: Glucose - Point of Care 95 mg/dl (70-99)
[2024-05-02 05:45] LABS: % Basophils 1.3 % (0-2); % Eosinophils 5.4 % (0-6); % Immature Granulocytes 0.3 % (0-0.5); % Lymphocytes 22.4 % (20.5-51.1); % Monocytes 14.9 % (1.7-9.3); % Neutrophils 55.7 % (42.2-75.2); Absolute Basophils 0.1 10^3/uL (0-0.2); Absolute Eosinophils 0.2 10^3/uL (0-0.7); Absolute Lymphocytes 0.9 10^3/uL (1.2-3.4); Absolute Monocytes 0.6 10^3/uL (0.1-0.6); Absolute Neutrophils 2.2 10^3/uL (1.4-6.5); Hematocrit 32.6 % (37.0-47.0); Mean Corp Hgb Conc. 33.7 g/dL (33.0-37.0); Mean Corpuscular Hgb 33.8 pg (27.0-31.0); Mean Corpuscular Volume 100.3 fL (81.0-99.0); Mean Platelet Volume 11.8 fL (7.4-10.4); Nucleated Red Blood Cells % 0 %; Platelet Count 135 10^3/uL (130-400); Red Blood Cell Count 3.25 10^6/uL (4.20-5.40); Red Cell Dist. Width 15.4 % (11.5-14.5); White Blood Cell Count 3.9 10^3/uL (4.8-10.8)
[2024-05-02 05:50] LABS: PT 35.7 Sec (11.4-14.6)
[2024-05-02 06:04] LABS: ALT (SGPT) 26 U/L (0-35); AST (SGOT) 66 U/L (14-36); Albumin 4.1 g/dl (3.5-5.0); Alkaline Phosphatase 145 U/L (38-126); Blood Urea Nitrogen 87 mg/dl (7-17); Calcium 9.8 mg/dl (8.4-10.2); Carbon Dioxide 27 mmol/L (22-30); Chloride 97 mmol/L (98-107); Estimated Creatinine Clearance 20 ml/min; Glucose 96 mg/dl (70-99); Potassium 4.2 mmol/L (3.5-5.1); Sodium 137 mmol/L (135-145); Total Bilirubin 1.7 mg/dl (0.2-1.3); Total Protein 6.6 g/dl (6.3-8.2); eGFR 23.38
--- NOTE | 2024-05-02 06:39 | CON.GI ---
Addendum entered and electronically signed by KATE Solorio 05/03/24 07:33:
pt with hx TAVR
Addendum entered and electronically signed by Sean Infante MD 05/02/24 16:06:
I saw and examined the patient.
The [employer] or PA's note was reviewed and I agree with the note.
Comment:
This patient is an 78-year-old woman with medical problems that include A-fib, mitral valve replacement on Coumadin, cardiac arrest with ICD and prior CABG. She also has a history of multiple large colon polyps with last colonoscopy being done in
2021 with 2 EMR's. She was seen 2 weeks ago for rectal bleeding and again has blood per rectum. Her INR is elevated. She denies any overt abdominal pain or vomiting.
abd: soft, nontender
impression:
GI bleed
anticoagulation
hx of large polyps
plan:
monitor on clears
follow INR
since this is second time over the month likely will need endoscopic evaluation especially in light of large polyps in past but will monitor.
d/w as well
Original Note:
Consultation
-
Date/Time Consultation Requested: 05/01/24 2230
Date/Time Consultation Performed: 05/02/24 0800
Requesting Provider: Chhaya Valencia MD
Performing Provider: KATE Fernandez, Sean Infante MD
Reason for Consultation: GI bleed
Medical History
Chief Complaint / HPI
History of Present Illness:
Pt is a 78yo with hx multiple med problems including, Afib, out of hospital arrest with ICD, prior CABG, mech MVR on chronic coumadin, HTN, NIDDM, CKD, prior GI bleed- post polypectomy bleeding, colon polyps with EMR in 2021 of large TA TC polyp.
Last colonoscopy [address] Bullard with resection of multiple TA, SSA, and HP polyp including large Transverse colon polyp with EMR. Last EGD 2020 with esophageal nodule, HH, with neg bx. Pt now presents with rectal bleeding. In review with
patient she admits to passing red bleed about 2 weeks ago. She then had change in stool pattern with smaller stools and incomplete evaluation then 05/01 recurrent rectal bleeding with large volume red blood and urgency prior to admission.
She otherwise stormy GI issue with dysphagia, GERD, nausea, vomiting, abdominal pain, diarrhea, constipation or black stools other with slightly darker stools with use of iron. Stools are typically soft without blood.
Past Medical History
Past Medical History: Arrhythmias (afib, vfib, out of hospital arrest ), CAD, CHF, HTN, Hypercholesterolemia, NIDDM, Renal Failure (CKD), Valvular Disease and Other (GI bleed-post polypectomy bleed, TA colon polyps with prior EMR of large TC polyp)
Past Surgical History: Cardiac (s/p ICD, CABG, mechanical MVR, MAZE procedure) and Cholecystectomy
Social History
Tobacco: Non-Smoker
Alcohol: Occasional
Drug: None
Personal:
Living: With Family
Employment: Retired
Family History
Family History: Other (no family hx colon CA or polyps)
Allergies / Home Medications
Allergy/AdvReac Type Severity Reaction Status Date / Time
No Known Allergies Allergy Verified 05/01/24 19:20
�Medication �Instructions �Recorded
atorvastatin 40 mg tablet 40 mg PO QPM High cholesterol 09/22/19
repaglinide 0.5 mg tablet 0.5 mg PO AC Diabetes 09/22/19
warfarin 2.5 mg tablet 2.5 mg PO QPM Blood clot 08/25/22
prevention/tx
levalbuterol HCl 0.63 mg/3 mL 0.63 mg inhalation R Q8HPRN PRN 11/22/22
solution for nebulization sob/wheezing
allopurinol 100 mg tablet 50 mg (1/2 x 100 mg) PO Q48H Gout 08/26/23
#30 tabs
metolazone 5 mg tablet 5 mg PO MOWEFR Heart Failure #0 08/26/23
tabs
metoprolol succinate 25 mg 25 mg PO BID Arrhythmia #0 tabs 08/26/23
tablet,extended release 24 hr
spironolactone 25 mg tablet 25 mg PO DAILY Heart Failure #0 08/26/23
tabs
zolpidem 5 mg tablet 5 mg PO HSPRN PRN sleep #2 tabs 08/26/23
acetaminophen 500 mg tablet 1,000 mg PO Q8HPRN PRN mild pain 05/01/24
(Tylenol Extra Strength)
docusate sodium 100 mg capsule 100 mg PO DAILY 05/01/24
(Colace)
ferrous sulfate 325 mg (65 mg 325 mg PO DAILY 05/01/24
iron) tablet
nitroglycerin 0.4 mg sublingual 0.4 mg sublingual [id number] PRN 05/01/24
tablet chest pain
omega 8-ocu-sih-fish oil 1,000 mg 1 cap PO DAILY 05/01/24
(120 mg-180 mg) capsule (Fish Oil)
potassium chloride 10 mEq 10 meq PO QPM 05/01/24
capsule,extended release
potassium chloride 10 mEq 30 meq PO DAILY 05/01/24
capsule,extended release
psyllium husk 0.4 gram capsule 0.4 g PO DAILY 05/01/24
sennosides 8.6 mg capsule (senna) 8.6 mg PO DAILYPRN PRN constipation 05/01/24
therapeutic multivitamin 1 tab PO DAILY 05/01/24
torsemide 20 mg tablet 20 mg PO QPM 05/01/24
torsemide 20 mg tablet 40 mg PO DAILY Fluid 05/01/24
retention/Swelling
Review of Systems
-
History Source: Patient
Constitutional: Reports Weight Gain (few lbs )
EENT: Reports No Symptoms
Respiratory: Reports Trouble Breathing (at times )
Cardiac: Reports No Symptoms
Abdomen/GI: Reports Bloody Stools
: Reports No Symptoms
Musculoskeletal: Reports Other (use of assist device for walking- )
Skin: Reports No Symptoms
Neurological: Reports Weakness
Endocrine: Reports No Symptoms
Hematologic/Lymphatic: Reports Bleeding
Vital Signs
Temp Pulse Resp BP Pulse Ox
97.7 F 90 16 133/73 99
05/02/24 03:00 05/02/24 03:00 05/02/24 03:00 05/02/24 03:00 05/02/24 03:00
Physical Exam
Exam
General: Well Developed, Well Nourished and No Apparent Distress
HEENT: Normocephalic and Anicteric
Respiratory: Clear
Cardiac: Regular Rhythm
GI: Soft, Non Tender and Non Distended
Rectal: Hemorrhoids and Other (dark brown formed stool small amount in rectal vault heme neg)
Musculoskeletal: No Clubbing and No Cyanosis
Skin: Warm and Dry
Neuro: Awake, Alert and AO x 3
Psych: Calm
Results
WBC 3.9 10^3/uL (4.8-10.8) L 05/02/24 04:43
Hgb 11.0 g/dL (12.0-16.0) L 05/02/24 04:43
Hct 32.6 % (37.0-47.0) L 05/02/24 04:43
MCV 100.3 fL (81.0-99.0) H 05/02/24 04:43
Plt Count 135 10^3/uL (130-400) 05/02/24 04:43
Absolute Neuts (auto) 2.2 10^3/uL (1.4-6.5) 05/02/24 04:43
PT 35.7 Sec (11.4-14.6) H 05/02/24 04:43
INR 3.50 05/02/24 04:43
APTT 52.7 Sec (23.4-35.0) H 05/01/24 19:59
Sodium 137 mmol/L (135-145) 05/02/24 04:43
Potassium 4.2 mmol/L (3.5-5.1) 05/02/24 04:43
Chloride 97 mmol/L (98-107) L 05/02/24 04:43
Carbon Dioxide 27 mmol/L (22-30) 05/02/24 04:43
BUN 87 mg/dl (7-17) H 05/02/24 04:43
Creatinine 2.1 mg/dL (0.6-1.0) H 05/02/24 04:43
Calcium 9.8 mg/dl (8.4-10.2) 05/02/24 04:43
Total Bilirubin 1.7 mg/dl (0.2-1.3) H 05/02/24 04:43
AST 66 U/L (14-36) H 05/02/24 04:43
ALT 26 U/L (0-35) 05/02/24 04:43
Alkaline Phosphatase 145 U/L (38-126) H 05/02/24 04:43
Diagnostic Image Results:
Prior GI Procedures:
10/2021 colonoscopy -Novikov One 5 mm polyp in the sigmoid colon, removed with a
cold snare. Resected and retrieved. TA
- One 10 mm polyp in the descending colon, removed
using injection-lift and a hot snare. Resected and
retrieved. Clip was placed. SS lesion
- One 5 mm polyp in the transverse colon, removed
using injection-lift and a hot snare. Resected and
retrieved. hyperplastic
- One 20 mm polyp in the transverse colon, s/p EMR.
Clips (MR conditional) were placed. TA
02/2021 EGD protano - Mucosal nodule found in the esophagus. Biopsied.
- 2 cm hiatal hernia.
- Erythematous mucosa in the antrum. Biopsied.
- Normal examined duodenum. Biopsied.
neg celiac, H pylori, metaplasia
Assessment / Plan
-
Pt is a 78yo with hx multiple med problems including, Afib, out of hospital arrest with ICD, prior CABG, mech MVR on chronic Coumadin, HTN, NIDDM, CKD, prior GI bleed- post polypectomy bleeding, colon polyps with EMR in 2021 of large TA TC polyp.
Last colonoscopy [address] Bullard with resection of multiple TA, SSA, and HP polyp including large Transverse colon polyp with EMR. Last EGD 2020 with esophageal nodule, HH, with neg bx. Pt now presents with rectal bleeding 2 weeks ago with
recurrent after admission. hbg 11.3 on admission.
-GI bleeding
-anemia
-hemorrhoids on exam
-hx mech MVR on Coumadin prior to admission
-hx post polypectomy bleeding/large TA polyp with prior EMR
other med problems:
-afib
-NIDDM
-CHF
-hx CABG
-Out of hospital arrest - ICD in place
-HTN
PLAN:etiology of bleeding related to local process with note hemorrhoids on exam, AVM with hx valvular disease, mass/polyp vs other
trend hbg and and stool record
ok for clear diet
INR remains 3.5 cont management per cardiology with hx mech valve
will review with Dr. Infante for colonoscopy vs flex -- will need to discuss with spouse who assist pt with decision making risk/benefit with multiple med problems but currently with second episode of bleeding in 2 weeks
-
-
Thank you for consultation and allowing me to participate in the patient's care. Please call the stone decorator GI physician during the after hours with any questions or concerns.
--- NOTE | 2024-05-02 08:07 | CON.CAR ---
Addendum entered and electronically signed by Varun Vivar MD 05/02/24 13:13:
Patient seen and examined in collaboration with SILO FILLER; agree with below.
-78-year-old female with a mechanical mitral valve and other cardiac history as outlined below; admitted with BRBPR.
-Current INR is 3.5; will need to hold Coumadin.
-Management as per GI.
-Trend INR; will follow.
Original Note:
Consultation
Consultation Request
Date/Time Consultation Requested: 05/01/24 10:30p
Date/Time Consultation Performed: 05/02/24 8a
Requesting Provider: Dr. Valencia
Performing Provider: KATE Wu for Dr. Vivar
Reason for Consultation: GIB in the setting of chronic Warfarin, INR management
Medical History
-
Chief Complaint: rectal bleeding
History of Present Illness:
Mrs. Pastrana is an 78 year old female with TAVR 09/2022, [place] mechanical MVR 2008, permanent A fib, on Coumadin, VF arrest s/p single chamber MDT ICD (2019), IVCD, CAD s/p CABG x4 2008, chronic HFpEF, DM, HTN, hyperlipidemia, CKD4, and SDH after
fall 2021, who presents to to the ER with c/o rectal bleeding that began suddenly last night. She is admitted to the hospitalist service and we are consulted for INR management. INR on admit was 3.5 and today its 3.0 as Coumadin held last night.
She also has JOJO on CKD4, creatinine on admit was 2.3 and today it is 2.1. She had acute HFpEF as an outpatient so her torsemide dose was increased to 40mg BID on 04/08/24 due to weight up to 164 lbs (dry weight is ~ 155 lbs), she also takes
metolazone 5mg //, Aldactone 25mg daily and KCl 30 mEq AM, 10 mEq PM. BMP 04/12/24 with creatinine 2.23 and weight was down to 159 lbs on 04/14/24 and her torsemide dose was reduced back to 40mg in AM and 20mg in PM. She denies any SOB/DOBBINS or LE
edema. She admits her weight is up to 160-162 lbs for the last 2 weeks, but she is not symptomatic.
Past Medical History
Past Medical History: Other (as above)
Past Surgical History: Appendectomy, Cholecystectomy and Other (as above)
Social History
Tobacco: Non-Smoker
Alcohol: None
Personal:
Living: With Family
Family History
Family History: Reviewed & Not Pertinent
Allergies / Home Medications
Allergy/AdvReac Type Severity Reaction Status Date / Time
No Known Allergies Allergy Verified 05/01/24 19:20
�Medication �Instructions �Recorded �Confirmed �Type
atorvastatin 40 mg tablet 40 mg PO QPM High cholesterol 09/22/19 05/01/24 History
repaglinide 0.5 mg tablet 0.5 mg PO AC Diabetes 09/22/19 05/01/24 History
warfarin 2.5 mg tablet 2.5 mg PO QPM Blood clot 08/25/22 05/01/24 History
prevention/tx
levalbuterol HCl 0.63 mg/3 mL 0.63 mg inhalation R Q8HPRN PRN 11/22/22 05/01/24 History
solution for nebulization sob/wheezing
allopurinol 100 mg tablet 50 mg (1/2 x 100 mg) PO Q48H Gout 08/26/23 05/01/24 Rx
#30 tabs
metolazone 5 mg tablet 5 mg PO MOWEFR Heart Failure #0 08/26/23 05/01/24 Rx
tabs
metoprolol succinate 25 mg 25 mg PO BID Arrhythmia #0 tabs 08/26/23 05/01/24 Rx
tablet,extended release 24 hr
spironolactone 25 mg tablet 25 mg PO DAILY Heart Failure #0 08/26/23 05/01/24 Rx
tabs
zolpidem 5 mg tablet 5 mg PO HSPRN PRN sleep #2 tabs 08/26/23 05/01/24 Rx
acetaminophen 500 mg tablet 1,000 mg PO Q8HPRN PRN mild pain 05/01/24 05/01/24 History
(Tylenol Extra Strength)
docusate sodium 100 mg capsule 100 mg PO DAILY Constipation 05/01/24 05/01/24 History
(Colace)
ferrous sulfate 325 mg (65 mg 325 mg PO DAILY Supplement 05/01/24 05/01/24 History
iron) tablet
nitroglycerin 0.4 mg sublingual 0.4 mg sublingual [id number] PRN 05/01/24 05/01/24 History
tablet chest pain
omega 3-pcg-fzy-fish oil 1,000 mg 1 cap PO DAILY Supplement 05/01/24 05/01/24 History
(120 mg-180 mg) capsule (Fish Oil)
potassium chloride 10 mEq 10 meq PO QPM Supplement 05/01/24 05/01/24 History
capsule,extended release
potassium chloride 10 mEq 30 meq PO DAILY Supplement 05/01/24 05/01/24 History
capsule,extended release
psyllium husk 0.4 gram capsule 0.4 g PO DAILY Constipation 05/01/24 05/01/24 History
sennosides 8.6 mg capsule (senna) 8.6 mg PO DAILYPRN PRN constipation 05/01/24 05/01/24 History
therapeutic multivitamin 1 tab PO DAILY Supplement 05/01/24 05/01/24 History
torsemide 20 mg tablet 20 mg PO QPM 05/01/24 05/01/24 History
torsemide 20 mg tablet 40 mg PO DAILY Fluid 05/01/24 05/01/24 History
retention/Swelling
Review of Systems
-
History Source: Patient
All other systems: Negative unless noted
Physical Exam
Vital Signs
Temp Pulse Resp BP Pulse Ox
97.9 F 104 17 120/72 98
05/02/24 07:43 05/02/24 07:43 05/02/24 07:43 05/02/24 07:43 05/02/24 07:43
Lab Results
05/02/24 04:43
05/02/24 04:43
Physical Exam
General: Well Developed, Well Nourished and No Apparent Distress
HEENT: Normocephalic, Anicteric and Moist Mucous Membranes
Respiratory: Clear and Non Labored Respirations
Cardiac: S1/S2, Irregular Rhythm, Peripheral Edema (trace b/l LE) and Other (metallic click)
Breast: Deferred by me
GI: Soft, Non Tender and Normal Bowel Sounds
Rectal: Deferred by Provider
Genito-urinary: Clear Urine
Musculoskeletal: No Cyanosis
Skin: Warm and Dry
Neuro: AO x 3
Hematologic/Lymphatic: No Lymphadenopathy
Psych: Calm
Impression / Plan
-
BRBPR - acute.
- no recurrence here in hospital.
- hgb stable, follow.
- GI consulted.
- Coumadin on hold, INR today 3.0.
JOJO - acute on chronic CKD4.
- creatinine was 2.23 on 04/12/24 after increased torsemide dose for acute HFpEF.
- today creatinine is 2.1.
- monitor with chronic outpatient meds.
- holding Aldactone.
- nephrology consulted.
Chronic anticoagulation - mechanical MVR, permanent Afib.
- goal INR is 2.5-3.0 managed by our office.
- she has a home [employer] machine for INR monitoring.
- INR today 3.0, Coumadin held for BRBPR.
- monitor INR closely, drifting down with holding Coumadin, but will need Heparin bridge when INR is less than 2.5.
HFpEF - chronic.
- High risk situation with CKD4 and cardiorenal syndrome.
- typically dry weight 155lb at home, but the last 2 weeks she reports weight 160-162 lbs.
- Continue torsemide 40mg AM, 20mg PM; metolazone 5mg M/W/; Aldactone 25mg daily; KCl 30 mEq AM, 10 mEq PM.
TAVR 09/2022 and mechanical MVR 2008 - Stable on echo.
- chronic Coumadin as above.
Permanent A fib - stable, rate controlled on Toprol XL 25mg bid.
- chronic Coumadin as above.
VF - stable on Toprol.
- s/p ICD, no discharges.
- followed in our outpatient device clinic.
CAD s/p CABG x 4 2008 - stable without angina.
- not on ASA since on Coumadin for A fib/mech MVR, and also had SDH in recent past.
- continue atorvastatin 40mg daily. Last LDL at goal at 59.
Data Reviewed
-
EKG: Tracing Personally Visualized and interpreted (Afib 97 bpm)
Medical Tests (Nuc Med, Echo etc): Report Reviewed by me (echo : EF 55-60%, [facility] MVR w/o MR, stable TAVR w/o AR, dilated RV with reduced RV function, severe TR, PASP 28mmHg)
Labs: Labs Reviewed by me
Old Records: Reviewed
[2024-05-02] MEDS: PROTONIX IV 40 MG IV ×2 (09:15→20:23)
[2024-05-02] MEDS: NSS (PRESERVATIVE FREE) 10 ML IV ×2 (09:15→20:24)
[2024-05-02] MEDS: FEOSOL 325 MG PO (09:16)
[2024-05-02] MEDS: COLACE 100 MG PO (09:16)
[2024-05-02] MEDS: ZYLOPRIM 50 MG PO (09:16)
[2024-05-02] MEDS: FLUSH (NSS) 1 FLUSH IV (09:16)
[2024-05-02] MEDS: THERAGRAN 1 TABLET PO (09:16)
[2024-05-02] MEDS: TOPROL XL 25 MG PO ×2 (09:18→20:23)
[2024-05-02] MEDS: DEMADEX 40 MG PO (09:18)
[2024-05-02] MEDS: METAMUCIL, KONSYL PO (09:38)
[2024-05-02 10:06] LABS: Glycohemoglobin (HgbA1c) 6.4 % (4.0-5.6)
[2024-05-02 11:40] LABS: Glucose - Point of Care 282 mg/dl (70-99)
--- NOTE | 2024-05-02 11:49 | W.CON.NEPH ---
Consultation
-
Date/Time Consultation Requested: 05/02/2024 7:00 AM
Date/Time Consultation Performed: 05/02/2024 12:00 PM
Requesting Provider: Dr. Templeton
Performing Provider: Dr. Pantoja
Reason for Consultation: Acute kidney injury
Medical History
-
Chief Complaint: Acute kidney injury
History of Present Illness:
The patient is an 78-year-old female with a past medical history of chronic HFpEF(maintained on lasix, metolazone, and aldactone), mechanical mitral valve, TAVR, ventricular fibrillation status post ICD, CAD status post CABG, chronic right bundle
branch block, permanent atrial fibrillation, CKD 4 with a baseline of ~2, , hypertension (maintained on Aldactone metoprolo), hyperlipidemia, type 2 diabetes, gout, tremors, subdural hemorrhage, obesity, presenting with rectal bleeding. She sat
down on her chair lift to go up stairs and felt a medina of blood/liquid from her rectal area. Attempted to get to the bathroom but noticed continuous bleeding. Son contacted EMS. 2 weeks ago she had a little bit of blood from the rectal area which
resolved spontaneously. She denies abdominal pain, fevers, chest pain or shortness of breath, lightheadedness or dizziness.
Patient's INR was last checked 2 weeks ago every time she believes she had therapeutic INR. She had colonoscopy [address] Bullard which was unremarkable.
Past Medical History
(chronic HFpEF, mechanical mitral valve, TAVR, ventricular fibrillation status post ICD, CAD status post CABG, chronic right bundle branch block, permanent atrial fibrillation, CKD 4 (2), hypertension, hyperlipidemia, type 2 diabetes, gout, tremors,
subdural hemorrhage, obesity,)
Social History
Tobacco: Non-Smoker
Alcohol: None
Family History
No chronic kidney disease
Family History: Not Pertinent
Allergies / Home Medications
Allergy/AdvReac Type Severity Reaction Status Date / Time
No Known Allergies Allergy Verified 05/01/24 19:20
�Medication �Instructions �Recorded �Confirmed �Type
atorvastatin 40 mg tablet 40 mg PO QPM High cholesterol 09/22/19 05/01/24 History
repaglinide 0.5 mg tablet 0.5 mg PO AC Diabetes 09/22/19 05/01/24 History
warfarin 2.5 mg tablet 2.5 mg PO QPM Blood clot 08/25/22 05/01/24 History
prevention/tx
levalbuterol HCl 0.63 mg/3 mL 0.63 mg inhalation R Q8HPRN PRN 11/22/22 05/01/24 History
solution for nebulization sob/wheezing
allopurinol 100 mg tablet 50 mg (1/2 x 100 mg) PO Q48H Gout 08/26/23 05/01/24 Rx
#30 tabs
metolazone 5 mg tablet 5 mg PO MOWEFR Heart Failure #0 08/26/23 05/01/24 Rx
tabs
metoprolol succinate 25 mg 25 mg PO BID Arrhythmia #0 tabs 08/26/23 05/01/24 Rx
tablet,extended release 24 hr
spironolactone 25 mg tablet 25 mg PO DAILY Heart Failure #0 08/26/23 05/01/24 Rx
tabs
zolpidem 5 mg tablet 5 mg PO HSPRN PRN sleep #2 tabs 08/26/23 05/01/24 Rx
acetaminophen 500 mg tablet 1,000 mg PO Q8HPRN PRN mild pain 05/01/24 05/01/24 History
(Tylenol Extra Strength)
docusate sodium 100 mg capsule 100 mg PO DAILY Constipation 05/01/24 05/01/24 History
(Colace)
ferrous sulfate 325 mg (65 mg 325 mg PO DAILY Supplement 05/01/24 05/01/24 History
iron) tablet
nitroglycerin 0.4 mg sublingual 0.4 mg sublingual [id number] PRN 05/01/24 05/01/24 History
tablet chest pain
omega 1-boj-uuk-fish oil 1,000 mg 1 cap PO DAILY Supplement 05/01/24 05/01/24 History
(120 mg-180 mg) capsule (Fish Oil)
potassium chloride 10 mEq 10 meq PO QPM Supplement 05/01/24 05/01/24 History
capsule,extended release
potassium chloride 10 mEq 30 meq PO DAILY Supplement 05/01/24 05/01/24 History
capsule,extended release
psyllium husk 0.4 gram capsule 0.4 g PO DAILY Constipation 05/01/24 05/01/24 History
sennosides 8.6 mg capsule (senna) 8.6 mg PO DAILYPRN PRN constipation 05/01/24 05/01/24 History
therapeutic multivitamin 1 tab PO DAILY Supplement 05/01/24 05/01/24 History
torsemide 20 mg tablet 20 mg PO QPM 05/01/24 05/01/24 History
torsemide 20 mg tablet 40 mg PO DAILY Fluid 05/01/24 05/01/24 History
retention/Swelling
Review of Systems
-
All other systems: Negative unless noted
Cardiac: Other (ICD)
Abdomen/GI: Bloody Stools
Physical Exam
Vital Signs
Vital Signs
Temp Pulse Resp BP Pulse Ox
97.4 F 85 17 142/85 95
05/02/24 11:26 05/02/24 11:26 05/02/24 11:26 05/02/24 11:26 05/02/24 11:26
Lab Results
05/02/24 04:43
05/02/24 04:43
WBC 3.9 10^3/uL (4.8-10.8) L 05/02/24 04:43
RBC 3.25 10^6/uL (4.20-5.40) L 05/02/24 04:43
Hgb 11.0 g/dL (12.0-16.0) L 05/02/24 04:43
Hct 32.6 % (37.0-47.0) L 05/02/24 04:43
Plt Count 135 10^3/uL (130-400) 05/02/24 04:43
Sodium 137 mmol/L (135-145) 05/02/24 04:43
Potassium 4.2 mmol/L (3.5-5.1) 05/02/24 04:43
Chloride 97 mmol/L (98-107) L 05/02/24 04:43
Carbon Dioxide 27 mmol/L (22-30) 05/02/24 04:43
BUN 87 mg/dl (7-17) H 05/02/24 04:43
Creatinine 2.1 mg/dL (0.6-1.0) H 05/02/24 04:43
eGFR 23.38 05/02/24 04:43
Glucose 96 mg/dl (70-99) 05/02/24 04:43
Calcium 9.8 mg/dl (8.4-10.2) 05/02/24 04:43
Albumin 4.1 g/dl (3.5-5.0) 05/02/24 04:43
Physical Exam
General: AOx3, Nontoxic , NAD
HEENT: PERRL, EOMI, Anicteric, Conjunctivae Clear, Ear/Nose Intact, Hearing Normal, Oropharynx Clear/Moist, Dentition Intact, Facial Symmetry, Neck Supple, Neck: Trachea Midline, No JVD and No Thyromegaly, no Bruits
Respiratory: Clear to auscultation bilaterally with normal lung exersion, decreased breath sounds to bases
Cardiac: S1/S2 and irregular rate/Rhythm (ICD)
Breast: Deferred by me
Abdomen: Soft, Nontender, Nondistended, Normal Bowel Sounds and No Hepatosplenomegaly
Rectal: Deferred by Provider
Genito-urinary: No Costovertebral Tenderness
Extremities: No Clubbing, No Cyanosis and trace pitting edema
Skin: No Rash or open lesions
Neuro: Nonfocal/Grossly Intact, CN II-XII (Intact) and Strength (Musculoskeletal exam 5 out of 5 both upper and lower extremities)
Hematologic/Lymphatic: No Cervical Lymphadenopathy, No Submandibular Lymphadenopathy and No Supraclavicular Lymphadenopathy
Psych: Mood/afflect pleasant, Insight/judgement good and Appropriate
Vascular: plus 1 pedal and radial pulses
Data Reviewed
-
Medical Tests (Nuc Med, Echo etc): Other (EKG report reviewed atrial fibrillation with PVCs at 97 bpm per report)
Labs: Labs Reviewed by me (BMP CBC)
Old Records: Reviewed (Previous creatinine reviewed from date 11/26/2023 creatinine 1.7 in EMR)
Assessment/Plan
-
Impression:
Bright red blood per rectum
Acute kidney injury
CKD stage IIIb with baseline creatinine 1.7
Atrial fibrillation on chronic anticoagulation
Hypertension
Diabetes
Congestive heart failure with preserved EF
Valvular heart disease (hx of mechanical valve replacement)
CAD with history of CABG
ICD
Plan:
JOJO:
-Strongly suspect acute kidney injury is related to prerenal stimulus from GI bleeding
-Creatinine is not very far off baseline
-Okay to maintain diuretics at this time as patient is above her dry weight
-Has maintained hemodynamic stability
[2024-05-02] MEDS: NOVOLOG FLEXPEN-LOW RESISTANCE 3 UNITS SC (12:47)
--- NOTE | 2024-05-02 12:48 | W.PN.HOSP.TC ---
Today's Communication/Plan
-
.
Assessment / Plan
Assessment / Plan
78-year-old woman presented with blood per rectum. Her INR is elevated. She denies any overt abdominal pain or vomiting.
# Lower GI bleeding/ acute on chronic blood loss anemia exacerbated by Coumadin and high INR( 3.5)
NO pain or active bleeding
Plan to c/w clear diet
Holding Coumadin, trend H&H , INR
Per GI: since this is second time over the month likely will need endoscopic evaluation especially in light of large polyps in past.
Appreciate GI help
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
goal INR is 2.5-3.0.
# CAD s/p CABG x 4 2008 - stable without angina.
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
stable on Toprol.
# JOJO on CKD stage IV versus progression of CKD 4
# Hyperkalemia
-Creatinine anywhere between 1.5 to 2.1 at baseline
-Potassium 5.2 on admission
-Held potassium supplement
-Held spironolactone
-Continue torsemide
-Patient apparently does not follow nephrology
-Nephrology consulted
# hyponatremia
#Chronic HFpEF
-Appears well compensated and not in acute heart failure
-Continue torsemide
-Hold metolazone, spironolactone
Essential hypertension
Type 2 diabetes
-Hold repaglinide
-Insulin sliding scale
Hyperlipidemia
-Continue statin
Gout
-Continue allopurinol
History of subdural hemorrhage
History of tremors
Obesity
DNR/DNI
Total time spent to see the patient on the floor, examine the patient, review data and lab results, discuss treatment plan with patient, nursing staff around 55 minutes
Anticipated Discharge: > 48 hours
Subjective/Interval History
-
Date of Service: May 02, 2024
Objective Data
-
Labs:
Laboratory Results
05/02/24
04:43
WBC 3.9 L
Hgb 11.0 L
Hct 32.6 L
Plt Count 135
PT 35.7 H
INR 3.50
Sodium 137
Potassium 4.2
Chloride 97 L
Carbon Dioxide 27
BUN 87 H
Creatinine 2.1 H
Glucose 96
Calcium 9.8
Total Bilirubin 1.7 H
AST 66 H
ALT 26
Alkaline Phosphatase 145 H
Vital Signs:
Vital Signs
Temp Pulse Resp BP Pulse Ox
97.4 F 85 17 142/85 95
05/02/24 11:26 05/02/24 11:26 05/02/24 11:26 05/02/24 11:26 05/02/24 11:26
[2024-05-02 16:21] LABS: Glucose - Point of Care 147 mg/dl (70-99)
[2024-05-02] MEDS: NOVOLOG FLEXPEN-LOW RESISTANCE SC (16:23)
--- NOTE | 2024-05-02 16:30 | CM ---
Met with pt and her at bedside
Pt lives with her in a 3 story home; 2 steps to enter/ramp, 16 steps to 2nd fl(has stair glide)
Modified [place] with ADL's, assist with climbing guide, ambulates with rolling walker
DME - rolling walker, stair glide, shower chair, commode, toilet rails, shower chair
SNF - [facility] in past
HH - [facility] in past
PCP - Pastor Kolb
Pharm - [facility]
Plan - anticipate home with VN vs no needs when medically ready
[2024-05-02] MEDS: DEMADEX 20 MG PO (17:41)
[2024-05-02] MEDS: LIPITOR 40 MG PO (17:41)
[2024-05-02 21:38] LABS: Glucose - Point of Care 124 mg/dl (70-99)
[2024-05-03] VITALS (8 sets, daily range): BP systolic 117–141; BP diastolic 63–80; PULSE 91; O2SAT 97–98; BMI 30.8
[2024-05-03 05:23] LABS: Hematocrit 32.1 % (37.0-47.0); Hemoglobin 11.1 g/dL (12.0-16.0); Mean Corp Hgb Conc. 34.6 g/dL (33.0-37.0); Mean Corpuscular Hgb 34.4 pg (27.0-31.0); Mean Corpuscular Volume 99.4 fL (81.0-99.0); Mean Platelet Volume 11.1 fL (7.4-10.4); Platelet Count 135 10^3/uL (130-400); Red Blood Cell Count 3.23 10^6/uL (4.20-5.40); Red Cell Dist. Width 15.3 % (11.5-14.5); White Blood Cell Count 4.4 10^3/uL (4.8-10.8)
[2024-05-03 05:33] LABS: INR 3.11
[2024-05-03 05:47] LABS: Blood Urea Nitrogen 71 mg/dl (7-17); Calcium 9.2 mg/dl (8.4-10.2); Carbon Dioxide 28 mmol/L (22-30); Chloride 94 mmol/L (98-107); Estimated Creatinine Clearance 21 ml/min; Glucose 109 mg/dl (70-99); Potassium 3.7 mmol/L (3.5-5.1); Sodium 136 mmol/L (135-145); eGFR 24.79
[2024-05-03 07:23] LABS: Glucose - Point of Care 102 mg/dl (70-99)
[2024-05-03] MEDS: NOVOLOG FLEXPEN-LOW RESISTANCE SC ×2 (07:27→12:47)
--- NOTE | 2024-05-03 07:44 | W.PN.CD ---
Today's Communication / Plan
-
- Hold Warfarin tonight
Impression / Plan
-
BRBPR - acute.
- no recurrence here in hospital.
- hgb stable, follow.
- GI consulted.
- Coumadin on hold, INR today 3.1.
- Resume once INR is <2.5
JOJO - acute on chronic CKD4.
- creatinine was 2.23 on 04/12/24 after increased torsemide dose for acute HFpEF.
- slowly imporving. today creatinine is 2.0.
- monitor with chronic outpatient meds.
- holding Aldactone.
- nephrology consulted.
Chronic anticoagulation - mechanical MVR, permanent Afib.
- goal INR is 2.5-3.0 managed by our office.
- she has a home [employer] machine for INR monitoring.
- INR today 3.0, Coumadin held for BRBPR.
- monitor INR closely, drifting down with holding Coumadin, but will need Heparin bridge when INR is less than 2.5.
HFpEF - chronic.
- High risk situation with CKD4 and cardiorenal syndrome.
- typically dry weight 155lb at home, but the last 2 weeks she reports weight 160-162 lbs.
- Continue torsemide 40mg AM, 20mg PM; metolazone 5mg //; Aldactone 25mg daily; KCl 30 mEq AM, 10 mEq PM.
TAVR 09/2022 and mechanical MVR 2008 - Stable on echo.
- chronic Coumadin as above.
Permanent A fib - stable, rate controlled on Toprol XL 25mg bid.
- chronic Coumadin as above.
VF - stable on Toprol.
- s/p ICD, no discharges.
- followed in our outpatient device clinic.
CAD s/p CABG x 4 2008 - stable without angina.
- not on ASA since on Coumadin for A fib/mech MVR, and also had SDH in recent past.
- continue atorvastatin 40mg daily. Last LDL at goal at 59.
Physical Exam
Vital Signs/Labs
Vital Signs
Temp Pulse Resp BP Pulse Ox
98.0 F 100 18 141/72 98
05/03/24 03:27 05/03/24 03:27 05/03/24 03:27 05/03/24 03:27 05/03/24 03:27
05/02/24 05/03/24 05/04/24
06:59 06:59 06:59
Actual Weight 75.841 kg 73.964 kg
05/03/24 04:59
05/03/24 04:59
PT 32.0 Sec (11.4-14.6) H 05/03/24 04:59
INR 3.11 05/03/24 04:59
APTT 52.7 Sec (23.4-35.0) H 05/01/24 19:59
Physical Exam
Constitutional: No acute distress and Comfortable
EENT: Anicteric and Moist mucous membranes
Cardiovascular: Pedal edema is absent, JVD pressure is normal and Rhythm/rate is irregular
Respiratory: Respiratory effort normal, Lungs clear to auscul. and Crackles Absent
GI: Soft, Non tender and Normal bowel sounds
Neuro/Psych: Alert, Oriented and Motor deficits absent
Data Reviewed
-
Date of Service: May 03, 2024
Medical Decision Making: Reviewed Test Results, Independent Historian Assessment and Test Interpretation
EKG: Tracing Personally Visualized and interpreted
Labs: Labs Reviewed by me
Old Records: Reviewed
[2024-05-03] MEDS: PROTONIX IV 40 MG IV ×2 (07:59→19:37)
[2024-05-03] MEDS: NSS (PRESERVATIVE FREE) 10 ML IV ×2 (07:59→19:36)
[2024-05-03] MEDS: METAMUCIL, KONSYL PO (08:00)
[2024-05-03] MEDS: TOPROL XL 25 MG PO ×2 (08:15→19:38)
[2024-05-03] MEDS: COLACE 100 MG PO (08:15)
[2024-05-03] MEDS: THERAGRAN 1 TABLET PO (08:15)
[2024-05-03] MEDS: FEOSOL 325 MG PO (08:16)
[2024-05-03] MEDS: DEMADEX 40 MG PO (08:16)
--- NOTE | 2024-05-03 09:09 | W.PN.GI.CBS2 ---
Today's Communication / Plan
-
monitor INR
Assessment / Plan
-
Pt is a 78 y/o with rectal bleeding, history of large polyps, MVR on coumadin, hx of cardiac arrest. For now:
1. In light of 2 separate presentations with rectal bleeding and cardiac risks would prefer inpatient procedure for evaluation if needed.
2. holding coumadin, will need bridge as INR would need to be under 1.5
3. low residue diet
4, follow hgb
5. watch INR over 3 today
Subjective
Subjective
Date of Service: May 03, 2024
Pt without bleeding last night
Objective
Data Reviewed
Laboratory Data:
Laboratory Results
05/03/24 04:59
05/03/24 04:59
Laboratory Results
PT 32.0 Sec (11.4-14.6) H 05/03/24 04:59
INR 3.11 05/03/24 04:59
APTT 52.7 Sec (23.4-35.0) H 05/01/24 19:59
Total Bilirubin 1.7 mg/dl (0.2-1.3) H 05/02/24 04:43
AST 66 U/L (14-36) H 05/02/24 04:43
ALT 26 U/L (0-35) 05/02/24 04:43
Alkaline Phosphatase 145 U/L (38-126) H 05/02/24 04:43
Vital Signs and I&O:
Vital Signs
Temp Pulse Resp BP Pulse Ox
98.3 F 94 18 140/63 97
05/03/24 07:55 05/03/24 07:55 05/03/24 07:55 05/03/24 07:55 05/03/24 07:55
I&O
05/02/24 05/03/24 05/04/24
06:59 06:59 06:59
Intake Total 1380 / 1380
Balance 1380 / 1380
Physical Exam
Physical Exam
HEENT: Anicteric
GI: Soft, Non Distended and Non Tender
Neuro: Non Focal
--- NOTE | 2024-05-03 10:33 | W.PN.NEPH.PH ---
Today's Communication / Plan
-
Observe on diuretics
Follow BMP
Assessment/Plan
-
Impression:
Bright red blood per rectum
Acute kidney injury
CKD stage IIIb with baseline creatinine 1.7
Atrial fibrillation on chronic anticoagulation
Hypertension
Diabetes
Congestive heart failure with preserved EF
Valvular heart disease (hx of mechanical valve replacement)
CAD with history of CABG
ICD
Plan:
JOJO:
-Strongly suspect acute kidney injury is related to prerenal stimulus from GI bleeding
-Creatinine is not very far off baseline ~2, urine output not recorded
-Okay to maintain diuretics at this time as patient is above her dry weight
-Has maintained hemodynamic stability
-
-
Date of Service: May 03, 2024
CC / HPI / ROS
-
Chief Complaint:
Chronic kidney disease
History of Present Illness:
Creatinine stable at 2
Hemodynamically stable
Hemoglobin remains stable
Review of Systems:
Subjectively nonoliguric
No chest pain or shortness of breath
Labs
-
Labs:
WBC 4.4 10^3/uL (4.8-10.8) L 05/03/24 04:59
RBC 3.23 10^6/uL (4.20-5.40) L 05/03/24 04:59
Hgb 11.1 g/dL (12.0-16.0) L 05/03/24 04:59
Hct 32.1 % (37.0-47.0) L 05/03/24 04:59
Plt Count 135 10^3/uL (130-400) 05/03/24 04:59
Sodium 136 mmol/L (135-145) 05/03/24 04:59
Potassium 3.7 mmol/L (3.5-5.1) 05/03/24 04:59
Chloride 94 mmol/L (98-107) L 05/03/24 04:59
Carbon Dioxide 28 mmol/L (22-30) 05/03/24 04:59
BUN 71 mg/dl (7-17) H 05/03/24 04:59
Creatinine 2.0 mg/dL (0.6-1.0) H 05/03/24 04:59
eGFR 24.79 05/03/24 04:59
Glucose 109 mg/dl (70-99) H 05/03/24 04:59
Calcium 9.2 mg/dl (8.4-10.2) 05/03/24 04:59
Albumin 4.1 g/dl (3.5-5.0) 05/02/24 04:43
Physical Exam
-
Vital Signs:
Vital Signs
Temp Pulse Resp BP Pulse Ox
98.3 F 94 18 140/63 97
05/03/24 07:55 05/03/24 07:55 05/03/24 07:55 05/03/24 07:55 05/03/24 07:55
Cardiovascular:: Regular rate and rhythm
Respiratory:: Bilateral: CTA
Lung Excursion:: Normal
Abdomen:: Nontender and Soft
Bowel Sounds:: Normal
Extremity Edema:: +1: Bilateral: (trace edema)
Rockwell Catheter: No
--- NOTE | 2024-05-03 11:47 | W.PN.HOSP.TC ---
Today's Communication/Plan
-
For inpatient GI procedure/ colonoscopy
Holding Coumadin, start heparin gtt when INR less than 2.5
Assessment / Plan
Assessment / Plan
78-year-old woman presented with blood per rectum. Her INR is elevated. She denies any overt abdominal pain or vomiting.
# Lower GI bleeding/ acute on chronic blood loss anemia exacerbated by Coumadin and high INR( 3.5)
NO pain or active bleeding
Plan to c/w clear diet
Holding Coumadin, trend H&H , INR
Per GI: since this is second time over the month likely will need endoscopic evaluation especially in light of large polyps in past.
Appreciate GI help
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
goal INR is 2.5-3.0.
# CAD s/p CABG x 4 2008 - stable without angina.
#Hx of VF
stable on Toprol.
# JOJO on CKD stage IV versus progression of CKD 4
# Hyperkalemia
-Creatinine anywhere between 1.5 to 2.1 at baseline
-Potassium 5.2 on admission
-Held potassium supplement
-Held spironolactone
-Continue torsemide
-Patient apparently does not follow nephrology
-Nephrology consulted
# hyponatremia
#Chronic HFpEF
-Appears well compensated and not in acute heart failure
-Continue torsemide
-Hold metolazone, spironolactone
Essential hypertension
Type 2 diabetes
-Hold repaglinide
-Insulin sliding scale
Hyperlipidemia
-Continue statin
Gout
-Continue allopurinol
History of subdural hemorrhage
History of tremors
Obesity
DNR/DNI
Total time spent to see the patient on the floor, examine the patient, review data and lab results, discuss treatment plan with patient and her , GI doctor, nursing staff around 55 minutes
Anticipated Discharge: > 48 hours
Subjective/Interval History
-
Date of Service: May 03, 2024
Objective Data
-
Labs:
Laboratory Results
05/03/24
04:59
WBC 4.4 L
Hgb 11.1 L
Hct 32.1 L
Plt Count 135
PT 32.0 H
INR 3.11
Sodium 136
Potassium 3.7
Chloride 94 L
Carbon Dioxide 28
BUN 71 H
Creatinine 2.0 H
Glucose 109 H
Calcium 9.2
Vital Signs:
Vital Signs
Temp Pulse Resp BP Pulse Ox
98.3 F 92 18 117/70 97
05/03/24 11:22 05/03/24 11:22 05/03/24 11:22 05/03/24 11:22 05/03/24 11:22
I&O
05/02/24 05/03/24 05/04/24
06:59 06:59 06:59
Intake Total 1380 / 1380
Balance 1380 / 1380
[2024-05-03 11:58] LABS: Glucose - Point of Care 144 mg/dl (70-99)
[2024-05-03 17:01] LABS: Glucose - Point of Care 198 mg/dl (70-99)
[2024-05-03] MEDS: NOVOLOG FLEXPEN-LOW RESISTANCE 1 UNITS SC (17:49)
[2024-05-03] MEDS: DEMADEX 20 MG PO (17:51)
[2024-05-03] MEDS: LIPITOR 40 MG PO (17:51)
[2024-05-03 21:35] LABS: Glucose - Point of Care 173 mg/dl (70-99)
[2024-05-04] MEDS: AMBIEN 5 MG PO ×2 (01:07→23:44)
[2024-05-04 02:44] VITALS: BP 122/68
[2024-05-04 05:28] VITALS: BMI 30.9
[2024-05-04 07:09] LABS: Blood Urea Nitrogen 70 mg/dl (7-17); Carbon Dioxide 27 mmol/L (22-30); Chloride 94 mmol/L (98-107); Estimated Creatinine Clearance 22 ml/min; Glucose 134 mg/dl (70-99); Potassium 3.5 mmol/L (3.5-5.1); Sodium 135 mmol/L (135-145); eGFR 26.36
[2024-05-04 07:42] VITALS: BP 124/74
[2024-05-04] MEDS: NOVOLOG FLEXPEN-LOW RESISTANCE SC ×2 (07:43→11:41)
--- NOTE | 2024-05-04 09:10 | W.PN.CD ---
Today's Communication / Plan
-
-Resume warfarin at 2 mg daily dose.
-Check INR in the morning.
-Continue to hold Aldactone.
Impression / Plan
-
BRBPR - acute.
- no recurrence here in hospital.
- hgb stable, follow.
- GI consulted.
- Coumadin on hold, INR today 2.7.
- Resume warfarin now. 2 mg QD today
JOJO - acute on chronic CKD4.
- creatinine was 2.23 on 04/12/24 after increased torsemide dose for acute HFpEF.
- slowly improving. today creatinine is 1.9 (baseline 1.7
- monitor with chronic outpatient meds.
- holding Aldactone.
Chronic anticoagulation - mechanical MVR, permanent Afib.
- goal INR is 2.5-3.0 managed by our office.
- she has a home [employer] machine for INR monitoring.
- INR today 3.0, Coumadin held for BRBPR.
- monitor INR closely, drifting down with holding Coumadin, but will need Heparin bridge when INR is less than 2.5.
HFpEF - chronic.
- High risk situation with CKD4 and cardiorenal syndrome.
- typically dry weight 155lb at home, but the last 2 weeks she reports weight 160-162 lbs.
- Continue torsemide 40mg AM, 20mg PM; metolazone 5mg //;
- Holding Aldactone 25mg daily; KCl 30 mEq AM, 10 mEq PM.
TAVR 09/2022 and mechanical MVR 2008 - Stable on echo.
- chronic Coumadin as above.
Permanent A fib - stable, rate controlled on Toprol XL 25mg bid.
- chronic Coumadin as above.
VF - stable on Toprol.
- s/p ICD, no discharges.
- followed in our outpatient device clinic.
CAD s/p CABG x 4 2008 - stable without angina.
- not on ASA since on Coumadin for A fib/mech MVR, and also had SDH in recent past.
- continue atorvastatin 40mg daily. Last LDL at goal at 59.
Physical Exam
Vital Signs/Labs
Vital Signs
Temp Pulse Resp BP Pulse Ox
98.4 F 94 20 124/74 98
05/04/24 07:42 05/04/24 07:42 05/04/24 07:42 05/04/24 07:42 05/04/24 07:42
05/03/24 05/04/24 05/05/24
06:59 06:59 06:59
Actual Weight 73.964 kg 74.049 kg
05/03/24 04:59
05/04/24 04:49
PT 32.0 Sec (11.4-14.6) H 05/03/24 04:59
INR 3.11 05/03/24 04:59
APTT 52.7 Sec (23.4-35.0) H 05/01/24 19:59
Physical Exam
Constitutional: No acute distress and Comfortable
EENT: Anicteric and Moist mucous membranes
Cardiovascular: JVD pressure is normal, Rhythm/rate is irregular and Other (Mechanical mitral click.)
Respiratory: Respiratory effort normal, Wheeze Absent and Rhonchi Absent
GI: Soft, Non tender and Normal bowel sounds
Neuro/Psych: Alert, Oriented and AO x 3
Data Reviewed
-
Date of Service: May 04, 2024
Medical Decision Making: Reviewed Test Results, Independent Historian Assessment, Test Interpretation and Review of Case with other Provider
EKG: Tracing Personally Visualized and interpreted
Echo: Report Reviewed by me
Medical Tests (PFT, Pathology etc): Discussed with Patient
Labs: Labs Reviewed by me
Old Records: Reviewed
[2024-05-04] MEDS: PROTONIX IV 40 MG IV ×2 (09:18→20:28)
[2024-05-04] MEDS: ZYLOPRIM 50 MG PO (09:18)
[2024-05-04] MEDS: NSS (PRESERVATIVE FREE) 10 ML IV ×2 (09:18→20:28)
[2024-05-04] MEDS: COLACE 100 MG PO (09:19)
[2024-05-04] MEDS: THERAGRAN 1 TABLET PO (09:19)
[2024-05-04] MEDS: DEMADEX 40 MG PO (09:20)
[2024-05-04] MEDS: FEOSOL 325 MG PO (09:20)
[2024-05-04] MEDS: TOPROL XL 25 MG PO ×2 (09:20→20:31)
[2024-05-04] MEDS: METAMUCIL, KONSYL 1 PACKET PO (09:21)
--- NOTE | 2024-05-04 09:21 | W.PN.HOSP.TC ---
Today's Communication/Plan
-
No Coumadin
Trend INR
CBC in am
Still off Aldactone
Assessment / Plan
Assessment / Plan
78-year-old woman presented with blood per rectum. Her INR is elevated. She denies any overt abdominal pain or vomiting.
# Lower GI bleeding/ acute on chronic blood loss anemia exacerbated by Coumadin and high INR( 3.5)
NO pain or active bleeding
Plan to c/w clear diet
Holding Coumadin, trend H&H , INR
Per GI: since this is second time over the month likely will need endoscopic evaluation especially in light of large polyps in past.
Appreciate GI help: likely procedure will be Sunday or Sunday.
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
goal INR is 2.5-3.0.
INR is around 2.7 today
Start heparin gtt tomorrow if INR is less than 2.5, recommended dose 18 u/Kg/h.
# CAD s/p CABG x 2008 - stable without angina.
#Hx of VF
stable on Toprol.
# JOJO on CKD stage IV versus progression of CKD 4
# Hyperkalemia
-Creatinine anywhere between 1.5 to 2.1 at baseline
-Potassium 5.2 on admission
-Held potassium supplement
-Held spironolactone
-Continue torsemide
-Patient apparently does not follow nephrology
-Nephrology consulted
# hyponatremia
#Chronic HFpEF
-Appears well compensated and not in acute heart failure
-Continue torsemide
-Hold metolazone, spironolactone
Essential hypertension
Type 2 diabetes
-Hold repaglinide
-Insulin sliding scale
Hyperlipidemia
-Continue statin
Gout
-Continue allopurinol
History of subdural hemorrhage
History of tremors
Obesity
DNR/DNI
Total time spent to see the patient on the floor, examine the patient, review data and lab results, discuss treatment plan with patient and her , GI doctor, hand glass cutter, nursing staff around 55 minutes
Anticipated Discharge: > 48 hours
Subjective/Interval History
-
Date of Service: May 04, 2024
No abd pain
No chest pain
Objective Data
-
Labs:
Laboratory Results
05/04/24 05/04/24
04:49 09:17
PT Pending
INR Pending
Sodium 135
Potassium 3.5
Chloride 94 L
Carbon Dioxide 27
BUN 70 H
Creatinine 1.9 H
Glucose 134 H
Calcium 9.0
Vital Signs:
Vital Signs
Temp Pulse Resp BP Pulse Ox
98.4 F 94 20 124/74 98
05/04/24 07:42 05/04/24 07:42 05/04/24 07:42 05/04/24 07:42 05/04/24 07:42
I&O
05/03/24 05/04/24 05/05/24
06:59 06:59 06:59
Intake Total 1380 / 1380 1200 / 1200
Balance 1380 / 1380 1200 / 1200
--- NOTE | 2024-05-04 09:54 | W.PN.GI.CBS2 ---
Today's Communication / Plan
-
follow INR
Assessment / Plan
-
Pt is a 78 y/o with rectal bleeding, history of large polyps, MVR on coumadin, hx of cardiac arrest. For now:
1. In light of 2 separate presentations with rectal bleeding and cardiac risks would prefer inpatient procedure for evaluation if needed.
2. holding coumadin, will need bridge as INR would need to be under 1.5
3. low residue diet
4, follow hgb
5. d/w pt that likely procedure will be sunday or sun depending on INR drop
Subjective
Subjective
Date of Service: May 04, 2024
Pt w/o rectal bleeding
Objective
Data Reviewed
Laboratory Data:
Laboratory Results
05/03/24 04:59
05/04/24 04:49
Laboratory Results
PT 32.0 Sec (11.4-14.6) H 05/03/24 04:59
INR 3.11 05/03/24 04:59
APTT 52.7 Sec (23.4-35.0) H 05/01/24 19:59
Total Bilirubin 1.7 mg/dl (0.2-1.3) H 05/02/24 04:43
AST 66 U/L (14-36) H 05/02/24 04:43
ALT 26 U/L (0-35) 05/02/24 04:43
Alkaline Phosphatase 145 U/L (38-126) H 05/02/24 04:43
Vital Signs and I&O:
Vital Signs
Temp Pulse Resp BP Pulse Ox
98.4 F 94 20 124/74 98
05/04/24 07:42 05/04/24 07:42 05/04/24 07:42 05/04/24 07:42 05/04/24 07:42
I&O
05/03/24 05/04/24 05/05/24
06:59 06:59 06:59
Intake Total 1380 / 1380 1200 / 1200
Balance 1380 / 1380 1200 / 1200
Physical Exam
Physical Exam
GI: Soft, Non Distended and Non Tender
[2024-05-04 10:01] LABS: INR 2.69; PT 28.5 Sec (11.4-14.6)
[2024-05-04 11:00] VITALS: BP 115/83
[2024-05-04 11:34] LABS: Glucose - Point of Care 146 mg/dl (70-99)
--- NOTE | 2024-05-04 12:38 | W.PN.NEPH.PH ---
Today's Communication / Plan
-
Observe on torsemide
Assessment/Plan
-
Impression:
Bright red blood per rectum
Acute kidney injury
CKD stage IIIb with baseline creatinine 1.7
Atrial fibrillation on chronic anticoagulation
Hypertension
Diabetes
Congestive heart failure with preserved EF
Valvular heart disease (hx of mechanical valve replacement)
CAD with history of CABG
ICD
Plan:
JOJO:
-Strongly suspect acute kidney injury is related to prerenal stimulus from GI bleeding: Will have endoscopy and/or colonoscopy once INR corrects
-Creatinine is not very far off baseline ~1.9 urine output not recorded
-Okay to maintain diuretics (torsemide) at this time as patient is above her dry weight
-Has maintained hemodynamic stability
-
-
Date of Service: May 04, 2024
CC / HPI / ROS
-
Chief Complaint:
Chronic kidney disease
History of Present Illness:
Creatinine stable at 1.9
Hemodynamically stable
Hemoglobin remains stable
Review of Systems:
Subjectively nonoliguric
No chest pain or shortness of breath
Labs
-
Labs:
WBC 4.4 10^3/uL (4.8-10.8) L 05/03/24 04:59
RBC 3.23 10^6/uL (4.20-5.40) L 05/03/24 04:59
Hgb 11.1 g/dL (12.0-16.0) L 05/03/24 04:59
Hct 32.1 % (37.0-47.0) L 05/03/24 04:59
Plt Count 135 10^3/uL (130-400) 05/03/24 04:59
Sodium 135 mmol/L (135-145) 05/04/24 04:49
Potassium 3.5 mmol/L (3.5-5.1) 05/04/24 04:49
Chloride 94 mmol/L (98-107) L 05/04/24 04:49
Carbon Dioxide 27 mmol/L (22-30) 05/04/24 04:49
BUN 70 mg/dl (7-17) H 05/04/24 04:49
Creatinine 1.9 mg/dL (0.6-1.0) H 05/04/24 04:49
eGFR 26.36 05/04/24 04:49
Glucose 134 mg/dl (70-99) H 05/04/24 04:49
Calcium 9.0 mg/dl (8.4-10.2) 05/04/24 04:49
Albumin 4.1 g/dl (3.5-5.0) 05/02/24 04:43
Physical Exam
-
Vital Signs:
Vital Signs
Temp Pulse Resp BP Pulse Ox
98.3 F 96 18 115/83 99
05/04/24 11:00 05/04/24 11:00 05/04/24 11:00 05/04/24 11:00 05/04/24 11:00
Cardiovascular:: Regular rate and rhythm
Respiratory:: Bilateral: Coarse and Bilateral: Wheeze
Lung Excursion:: Normal
Abdomen:: Nontender and Soft
Bowel Sounds:: Normal
Extremity Edema:: +1: Bilateral: (trace edema)
Rockwell Catheter: No
[2024-05-04 15:01] VITALS: BP 132/78
[2024-05-04] MEDS: LIPITOR 40 MG PO (16:25)
[2024-05-04] MEDS: DEMADEX 20 MG PO (16:26)
[2024-05-04] MEDS: NOVOLOG FLEXPEN-LOW RESISTANCE 1 UNITS SC (16:29)
[2024-05-04 16:31] LABS: Glucose - Point of Care 168 mg/dl (70-99)
[2024-05-04 18:35] VITALS: BP 96/68
[2024-05-04 22:04] LABS: Glucose - Point of Care 163 mg/dl (70-99)
[2024-05-04 23:31] VITALS: BP 127/63
[2024-05-05] VITALS (7 sets, daily range): BP systolic 119–143; BP diastolic 44–85; PULSE 74; O2SAT 98; BMI 30.6
[2024-05-05 06:50] LABS: Hematocrit 34.6 % (37.0-47.0); Mean Corp Hgb Conc. 34.7 g/dL (33.0-37.0); Mean Corpuscular Hgb 34.1 pg (27.0-31.0); Mean Corpuscular Volume 98.3 fL (81.0-99.0); Mean Platelet Volume 11.4 fL (7.4-10.4); Platelet Count 136 10^3/uL (130-400); Red Blood Cell Count 3.52 10^6/uL (4.20-5.40); Red Cell Dist. Width 15.1 % (11.5-14.5); White Blood Cell Count 5.1 10^3/uL (4.8-10.8)
[2024-05-05 06:56] LABS: INR 2.29; PT 25.1 Sec (11.4-14.6)
[2024-05-05 07:10] LABS: Blood Urea Nitrogen 69 mg/dl (7-17); Calcium 9.2 mg/dl (8.4-10.2); Carbon Dioxide 25 mmol/L (22-30); Chloride 91 mmol/L (98-107); Estimated Creatinine Clearance 22 ml/min; Glucose 125 mg/dl (70-99); Potassium 3.6 mmol/L (3.5-5.1); Sodium 134 mmol/L (135-145); eGFR 26.36
[2024-05-05] MEDS: COLACE 100 MG PO (08:39)
[2024-05-05] MEDS: FEOSOL 325 MG PO (08:39)
[2024-05-05] MEDS: DEMADEX 40 MG PO (08:39)
[2024-05-05] MEDS: METAMUCIL, KONSYL 1 PACKET PO (08:39)
[2024-05-05] MEDS: THERAGRAN 1 TABLET PO (08:39)
[2024-05-05] MEDS: TOPROL XL 25 MG PO ×2 (08:39→21:02)
[2024-05-05] MEDS: NSS (PRESERVATIVE FREE) 10 ML IV ×2 (08:40→21:02)
[2024-05-05] MEDS: PROTONIX IV 40 MG IV ×2 (08:40→21:02)
[2024-05-05 09:18] LABS: Glucose - Point of Care 119 mg/dl (70-99)
[2024-05-05] MEDS: NOVOLOG FLEXPEN-LOW RESISTANCE SC (09:26)
--- NOTE | 2024-05-05 10:23 | W.PN.HOSP.TC ---
Addendum entered and electronically signed by Fermin Lemon MD 05/05/24 23:51:
Attending Addendum-
I saw and evaluated the patient. I reviewed the resident�s note and agree with findings and plan as documented in the resident�s note. Sub: states she has dark stool. No BRBPR. seen with . asking the same questions over and over. Full 12
point ROS reviewed and negative except as documented Exam: Vitals reviewed in chart GEN-NAD heart irreg irreg crisp click heard @ apex abd soft LE no edema
# Lower GI bleeding/ acute on chronic blood loss anemia exacerbated by Coumadin
-NO pain or active bleeding
-Plan to c/w clear diet
- cont IV Protonix BID
-Holding Coumadin, trend H&H , INR
-Per GI: will need endoscopic evaluation especially in light of large polyps in past.
-Appreciate GI input: likely scopes Sunday.
- await INR <1.5
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
- ther INR is 2.5-3.5
- INR 2.2 today
- hold coumadin
- Start heparin bridge @ 18 u/Kg/h while INR < 2.5
- monitor ptt
- cards on board
# CAD s/p CABG x 2008 - stable without angina.
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
stable on Toprol.
# JOJO on CKD stage 3B
# Hyperkalemia
-Creatinine @ 1.5-1.7 at baseline
-potassium WNL now
-Held potassium supplement
-Held spironolactone
-Continue torsemide
-Nephrology input appreciated
- repeat BMP in am
# hyponatremia
- resolved
#Chronic HFpEF
-Appears well compensated and not in acute heart failure
-Continue torsemide
-Hold metolazone, spironolactone
# Essential hypertension
# Type 2 diabetes
-Hold repaglinide
-Insulin sliding scale
# Hyperlipidemia
-Continue statin
# Gout
-Continue allopurinol
# History of subdural hemorrhage
History of tremors
Obesity
DNR/DNI
Dispo home with [facility]
Time spent coordinating care, review of plan of care with resident, personally reviewed records in EMR, med rec, consults, notes, labs, radiology, d/w nursing cards GI � 59 mins
Original Note:
Today's Communication/Plan
-
Heparin drip
Plans for colonoscopy tomorr or sun per GI
Assessment / Plan
Assessment / Plan
78-year-old female with past medical history of mechanical mitral valve replacement on chronic anticoagulation warfarin presented with rectal bleeding. Initial INR elevated. She denied any overt abdominal pain or vomiting.
# Lower GI bleed with acute on chronic blood loss anemia exacerbated by warfarin (INR 3.5)
Warfarin held, INR today 2.29
Transitioned to diabetic diet from n.p.o.
trend H&H , INR
GI noted: since this is second time over the month likely will need endoscopic evaluation especially in light of large polyps in past.
Plans to do colonoscopy likely Sunday or Sunday per GI
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
goal INR is 2.5-3.0.
INR is around 2.29 today
Start heparin gtt as INR is less than 2.5 (2.29), recommended dose 18 u/Kg/h.
#SOB with exertion
History of HFpEF
No crackles on physical exam but expiratory wheezing present
Slight lower extremity edema
O2 sats good
Continue torsemide per nephro
chest x-ray pending
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
stable on Toprol.
# JOJO on CKD stage IV versus progression of CKD 4
# Hyperkalemia
-Creatinine anywhere between 1.5 to 2.1 at baseline
-Potassium 5.2 on admission
-Today K 3.6 consider re-starting K supplement pending am labs
-Held spironolactone and metolazone
-Continue torsemide per nephro
# hyponatremia
Monitor BMP
#Chronic HFpEF
-Increase shortness of breath with exertion
-Chest x-ray pending
-Continue torsemide
-Hold metolazone, spironolactone
#Essential hypertension
-BP stable
#Type 2 diabetes
-Hold repaglinide
-Insulin sliding scale
#Hyperlipidemia -Continue statin
#Gout-Continue allopurinol
#History of subdural hemorrhage
#History of tremors
#Obesity
DNR/DNI
Anticipated Discharge: > 48 hours
Subjective/Interval History
-
Date of Service: May 05, 2024
Objective Data
-
Labs:
Laboratory Results
05/05/24
04:27
WBC 5.1
Hgb 12.0
Hct 34.6 L
Plt Count 136
PT 25.1 H
INR 2.29
Sodium 134 L
Potassium 3.6
Chloride 91 L
Carbon Dioxide 25
BUN 69 H
Creatinine 1.9 H
Glucose 125 H
Calcium 9.2
Vital Signs:
Vital Signs
Temp Pulse Resp BP Pulse Ox
98.1 F 90 18 140/75 96
05/05/24 07:38 05/05/24 07:38 05/05/24 07:38 05/05/24 07:38 05/05/24 07:38
I&O
05/04/24 05/05/24 05/06/24
06:59 06:59 06:59
Intake Total 1200 / 1200 970 / 970
Balance 1200 / 1200 970 / 970
Review of Systems
-
History Source: Patient
Constitutional: Reports Fatigue
Respiratory: Reports Trouble Breathing (With exertion)
Cardiac: Reports No Symptoms
Abdomen/GI: Reports No Symptoms
Genitourinary: Reports No Symptoms
Neuro: Reports No Symptoms
Physical Exam
-
General: No Apparent Distress
Respiratory: Wheezes (Expiratory wheezes); Negative Crackles
Cardiac: Irregular Rhythm and Murmur
GI: Soft and Nontender
Musculoskeletal: Edema, Right Lower Extrem and Edema, Left Lower Extrem
Neuro: AO x 3
Psych: Calm
--- NOTE | 2024-05-05 11:18 | W.PN.GI.CBS2 ---
Today's Communication / Plan
-
trend INR
colonoscopy likely sunday
Assessment / Plan
-
Pt is a 78 y/o with rectal bleeding, history of large polyps, MVR on coumadin, hx of cardiac arrest. For now:
1. In light of 2 separate presentations with rectal bleeding and cardiac risks would proceed with inpatient procedure.
2. holding coumadin, will need bridge as INR would need to be under 1.5
3. low residue diet
4, follow hgb
5. d/w pt that likely procedure will likely be wed depending based on where INR stands today, will do clear liquids and prep tomorrow.
Subjective
Subjective
Date of Service: May 05, 2024
Pt w/o any bleeding. INR still too high for procedures
Objective
Data Reviewed
Laboratory Data:
Laboratory Results
05/05/24 04:27
05/05/24 04:27
Laboratory Results
PT 25.1 Sec (11.4-14.6) H 05/05/24 04:27
INR 2.29 05/05/24 04:27
APTT 52.7 Sec (23.4-35.0) H 05/01/24 19:59
Total Bilirubin 1.7 mg/dl (0.2-1.3) H 05/02/24 04:43
AST 66 U/L (14-36) H 05/02/24 04:43
ALT 26 U/L (0-35) 05/02/24 04:43
Alkaline Phosphatase 145 U/L (38-126) H 05/02/24 04:43
Vital Signs and I&O:
Vital Signs
Temp Pulse Resp BP Pulse Ox
98.1 F 90 18 140/75 96
05/05/24 07:38 05/05/24 07:38 05/05/24 07:38 05/05/24 07:38 10/21/24 07:38
I&O
05/04/24 05/05/24 05/06/24
06:59 06:59 06:59
Intake Total 1200 / 1200 970 / 970
Balance 1200 / 1200 970 / 970
Physical Exam
Physical Exam
GI: Soft, Non Distended and Non Tender
[2024-05-05 12:39] LABS: Glucose - Point of Care 165 mg/dl (70-99)
[2024-05-05] MEDS: NOVOLOG FLEXPEN-LOW RESISTANCE 1 UNITS SC ×2 (12:55→17:54)
--- NOTE | 2024-05-05 13:34 | W.PN.CD ---
Today's Communication / Plan
-
IV heparin now that INR < 2.5
Impression / Plan
-
BRBPR
- For colonoscopy
Anticoagulation
- Given mech MVR/bioTAVR/AFib/Heart failure we should use IV Heparin UNLESS it leads to more bleeding now that INR is less than 2.5
JOJO on CKD4.
- Aldactone on hold, anticipate resuming later
HFpEF - chronic.
- High risk situation with CKD4 and cardiorenal syndrome.
- typically dry weight 155lb at home, but the last 2 weeks she reports weight 160-162 lbs.
- Continue torsemide 40mg AM, 20mg PM; metolazone 5mg //;
- Holding Aldactone 25mg daily; KCl 30 mEq AM, 10 mEq PM.
Valvular heart disease
- TAVR 09/2022
- mechanical MVR 2008
- severe TR
Permanent A fib - stable, rate controlled on Toprol XL 25mg bid.
- chronic Coumadin as above.
VF, pior primary
- Secondary prevention ICD in place
CAD s/p CABG x 2008 - stable without angina.
- not on ASA since on Coumadin for A fib/mech MVR, and also had SDH in recent past.
- continue atorvastatin 40mg daily. Last LDL at goal at 59.
Subjective:
- DOBBINS noted by PT/nursing
Physical Exam
Vital Signs/Labs
Vital Signs
Temp Pulse Resp BP Pulse Ox
98.3 F 92 16 139/78 95
05/05/24 11:15 05/05/24 11:15 05/05/24 11:15 05/05/24 11:15 05/05/24 11:15
05/04/24 05/05/24 05/06/24
06:59 06:59 06:59
Actual Weight 74.049 kg 73.437 kg
05/05/24 04:27
05/05/24 04:27
PT 25.1 Sec (11.4-14.6) H 05/05/24 04:27
INR 2.29 05/05/24 04:27
APTT 52.7 Sec (23.4-35.0) H 05/01/24 19:59
Physical Exam
Constitutional: No acute distress
Cardiovascular: Pedal edema is absent, Rhythm/rate is irregular and Other ([facility] S1)
Respiratory: Respiratory effort normal and Lungs clear to auscul.
GI: Soft and Distention absent
Neuro/Psych: Alert
Data Reviewed
-
Date of Service: May 05, 2024
--- NOTE | 2024-05-05 15:04 | CM ---
Case management following for discharge planning
Chart reviewed. Met with pt and her
PT recs - HH vs SNF - discussed with pt and
Pt would like to return home - requesting [facility] for HH
Referral sent in [facility]
Plan - anticipate home with [facility] when medically ready for discharge
[2024-05-05 16:47] LABS: Hematocrit 34.2 % (37.0-47.0); Mean Corp Hgb Conc. 35.1 g/dL (33.0-37.0); Mean Corpuscular Hgb 33.8 pg (27.0-31.0); Mean Corpuscular Volume 96.3 fL (81.0-99.0); Mean Platelet Volume 10.6 fL (7.4-10.4); Platelet Count 135 10^3/uL (130-400); Red Blood Cell Count 3.55 10^6/uL (4.20-5.40); Red Cell Dist. Width 14.9 % (11.5-14.5); White Blood Cell Count 6.4 10^3/uL (4.8-10.8)
[2024-05-05 16:58] LABS: APTT 44.2 Sec (23.4-35.0)
--- NOTE | 2024-05-05 17:10 | W.PN.NEPH.PH ---
Today's Communication / Plan
-
follow labs
Assessment/Plan
-
Impression:
Bright red blood per rectum
Acute kidney injury
CKD stage IIIb with baseline creatinine 1.7
Atrial fibrillation on chronic anticoagulation
Hypertension
Diabetes
Congestive heart failure with preserved EF
Valvular heart disease (hx of mechanical valve replacement)
CAD with history of CABG
ICD
Plan:
JOJO:
-Strongly suspect acute kidney injury is related to prerenal stimulus from GI bleeding: Will have endoscopy and/or colonoscopy once INR corrects
-Creatinine is not very far off baseline ~1.9
-Okay to maintain diuretics (torsemide) at this time
hemodynamically stable
heparin transition per cards
labs in am
-
-
Date of Service: May 05, 2024
CC / HPI / ROS
-
Chief Complaint:
Chronic kidney disease
History of Present Illness:
Creatinine stable at 1.9
Hemodynamically stable
Hemoglobin remains stable
Review of Systems:
Subjectively nonoliguric
No chest pain or shortness of breath
Labs
-
Labs:
WBC 6.4 10^3/uL (4.8-10.8) 05/05/24 16:31
RBC 3.55 10^6/uL (4.20-5.40) L 05/05/24 16:31
Hgb 12.0 g/dL (12.0-16.0) 05/05/24 16:31
Hct 34.2 % (37.0-47.0) L 05/05/24 16:31
Plt Count 135 10^3/uL (130-400) 05/05/24 16:31
Sodium 134 mmol/L (135-145) L 05/05/24 04:27
Potassium 3.6 mmol/L (3.5-5.1) 05/05/24 04:27
Chloride 91 mmol/L (98-107) L 05/05/24 04:27
Carbon Dioxide 25 mmol/L (22-30) 05/05/24 04:27
BUN 69 mg/dl (7-17) H 05/05/24 04:27
Creatinine 1.9 mg/dL (0.6-1.0) H 05/05/24 04:27
eGFR 26.36 05/05/24 04:27
Glucose 125 mg/dl (70-99) H 05/05/24 04:27
Calcium 9.2 mg/dl (8.4-10.2) 05/05/24 04:27
Albumin 4.1 g/dl (3.5-5.0) 05/02/24 04:43
Physical Exam
-
Vital Signs:
Vital Signs
Temp Pulse Resp BP Pulse Ox
97.7 F 88 16 131/71 96
05/05/24 15:20 05/05/24 15:20 05/05/24 15:20 05/05/24 15:20 05/05/24 15:20
Cardiovascular:: Regular rate and rhythm (murmur and m click )
Respiratory:: Bilateral: CTA
Lung Excursion:: Normal
Abdomen:: Nontender and Soft
Extremity Edema:: +1: Bilateral: (ANKLE EDEMA)
Rockwell Catheter: No
[2024-05-05] MEDS: LIPITOR 40 MG PO (17:54)
[2024-05-05] MEDS: DEMADEX 20 MG PO (17:54)
[2024-05-05 17:55] LABS: Glucose - Point of Care 179 mg/dl (70-99)
[2024-05-05] MEDS: HEPARIN 25000 UNITS/250 ML IV (17:55)
[2024-05-05 21:34] LABS: Glucose - Point of Care 154 mg/dl (70-99)
--- NOTE | 2024-05-05 23:30 | PTCARENOTE ---
Pt is currently doing bowel prep for colonoscopy tmrw. Pt vomited medium amount of yellow emesis with with clot like blood before getting to [facility]. after vomitting pt stated she felt better. [employer] notified. stat PT and INR ordered. care ongoing.
[2024-05-06] VITALS (7 sets, daily range): BP systolic 124–142; BP diastolic 68–98; PULSE 120; O2SAT 100; BMI 30.7
[2024-05-06] MEDS: AMBIEN 5 MG PO (00:36)
[2024-05-06 01:08] LABS: APTT > 200 Sec (23.4-35.0)
[2024-05-06] MEDS: DESENEX/MITRAZOL/ZEASORB 1 APPLIC TOPICAL ×3 (03:51→20:32)
[2024-05-06 07:35] LABS: Glucose - Point of Care 119 mg/dl (70-99)
[2024-05-06] MEDS: NOVOLOG FLEXPEN-LOW RESISTANCE SC ×2 (08:04→17:38)
[2024-05-06] MEDS: NSS (PRESERVATIVE FREE) 10 ML IV ×2 (08:53→20:32)
[2024-05-06] MEDS: METAMUCIL, KONSYL 1 PACKET PO (08:53)
[2024-05-06] MEDS: PROTONIX IV 40 MG IV ×2 (08:54→20:32)
[2024-05-06] MEDS: COLACE 100 MG PO (08:54)
[2024-05-06] MEDS: TOPROL XL 25 MG PO ×2 (08:54→20:33)
[2024-05-06] MEDS: ZYLOPRIM 50 MG PO (08:54)
[2024-05-06] MEDS: THERAGRAN 1 TABLET PO (08:54)
[2024-05-06] MEDS: FEOSOL 325 MG PO (08:55)
[2024-05-06] MEDS: DEMADEX 40 MG PO (08:55)
--- NOTE | 2024-05-06 08:58 | W.PN.CD ---
Today's Communication / Plan
-
IV heparin bridge as INR < 2.5
Follow weights/BMP
Impression / Plan
-
BRBPR
- For colonoscopy when INR allows
[facility]ticoagulation
[facility]Heart [facility] => IV Heparin bridge (watch for resumption of bleeding)
JOJO on CKD4.
- Aldactone on hold, anticipate resuming later
HFpEF - chronic.
- High risk situation with CKD4 and cardiorenal syndrome.
- typically dry weight 155lb at home, but the last 2 weeks she reports weight 160-162 lbs.
- Continue torsemide 40mg AM, 20mg PM; SO FAR has not needed her usual metolazone 5mg M//;
- Holding Aldactone 25mg daily; KCl 30 mEq AM, 10 mEq PM.
Valvular heart disease
- TAVR 09/2022
- mechanical MVR 2008
- severe TR
Permanent A fib - stable, rate controlled on Toprol XL 25mg bid.
- chronic Coumadin as above.
VF, pior primary
- Secondary prevention ICD in place
CAD s/p CABG x 2008 - stable without angina.
- not on ASA since on Coumadin for A fib/mech MVR, and also had SDH in recent past.
- continue atorvastatin 40mg daily. Last LDL at goal at 59.
Subjective:
- DOBBINS noted by PT/nursing yesterday. Today pt denies dyspnea
Physical Exam
Vital Signs/Labs
Vital Signs
Temp Pulse Resp BP Pulse Ox
98.2 F 85 16 128/68 97
05/06/24 03:43 05/06/24 03:43 05/06/24 03:43 05/06/24 03:43 05/06/24 03:43
05/05/24 05/06/24 05/07/24
06:59 06:59 06:59
Actual Weight 73.437 kg 73.709 kg
PT Cancelled 05/06/24 06:00
INR Cancelled 05/06/24 06:00
APTT > 200 Sec (23.4-35.0) H* 05/06/24 00:16
Physical Exam
Constitutional: No acute distress
Cardiovascular: Rhythm/rate is irregular and Rub absent
Respiratory: Respiratory effort normal and Lungs clear to auscul.
GI: Soft and Distention absent
Neuro/Psych: AO x 3
Data Reviewed
-
Date of Service: May 06, 2024
[2024-05-06 10:01] LABS: Hematocrit 34.5 % (37.0-47.0); Hemoglobin 11.6 g/dL (12.0-16.0); Mean Corp Hgb Conc. 33.6 g/dL (33.0-37.0); Mean Corpuscular Hgb 32.3 pg (27.0-31.0); Mean Corpuscular Volume 96.1 fL (81.0-99.0); Mean Platelet Volume 11.1 fL (7.4-10.4); Platelet Count 135 10^3/uL (130-400); Red Blood Cell Count 3.59 10^6/uL (4.20-5.40); White Blood Cell Count 5.1 10^3/uL (4.8-10.8)
[2024-05-06 10:11] LABS: PT 23.6 Sec (11.4-14.6)
[2024-05-06 10:46] LABS: APTT > 200 Sec (23.4-35.0)
[2024-05-06 10:47] LABS: INR 2.12
[2024-05-06 10:51] LABS: ALT (SGPT) 21 U/L (0-35); AST (SGOT) 54 U/L (14-36); Albumin 4.3 g/dl (3.5-5.0); Alkaline Phosphatase 138 U/L (38-126); Blood Urea Nitrogen 70 mg/dl (7-17); Calcium 9.4 mg/dl (8.4-10.2); Carbon Dioxide 26 mmol/L (22-30); Chloride 95 mmol/L (98-107); Estimated Creatinine Clearance 26 ml/min; Glucose 120 mg/dl (70-99); Potassium 2.9 mmol/L (3.5-5.1); Sodium 134 mmol/L (135-145); Total Bilirubin 2.9 mg/dl (0.2-1.3); Total Protein 7.3 g/dl (6.3-8.2)
--- NOTE | 2024-05-06 11:06 | W.PN.GI.CBS2 ---
Addendum entered and electronically signed by Rafael Jaramillo MD 05/06/24 14:09:
I saw and examined the patient.
The [employer] WORK[employer] or PA's note was reviewed and I agree with the note.
Comment: No complaints. Taking liquids for lunch
ABD soft NT
REC:
No bleeding overnight
Prep tonight for colonoscopy tomorrow. Eval for hemorrhoids and other bleeding sources
Check f/u INR
Hold heparin gtt in am prior to colonoscopy
Original Note:
Today's Communication / Plan
-
etiology of bleeding related to local process with note hemorrhoids on exam on admission, AVM with hx valvular disease, mass/polyp vs other
In light of 2 separate presentations with rectal bleeding and cardiac risks would proceed with inpatient procedure.
plan for tentative colonoscopy 05/07 if INR continued to go down
K 2.9 reviewed with hospitalist/resident for replacement prior to starting prep later today
clear diet and NPO in AM
hold fiber and oral iron with bowel prep
remains on heparin gtt now with plan for 6AM hold 05/07 prior to procedure
CXR completed this am pending with hx CHF
Assessment / Plan
-
Pt is a 78yo with hx multiple med problems including, Afib, out of hospital arrest with ICD, prior CABG, mech MVR on chronic Coumadin, HTN, NIDDM, CKD, prior GI bleed- post polypectomy bleeding, colon polyps with EMR in 2021 of large TA TC polyp.
Last colonoscopy [address] Bullard with resection of multiple TA, SSA, and HP polyp including large Transverse colon polyp with EMR. Last EGD 2020 with esophageal nodule, HH, with neg bx. Pt now presents with rectal bleeding 2 weeks ago with
recurrent after admission. hbg 11.3 on admission with stable hbg and decreased bleeding during admission.
-GI bleeding with 2 episode 2 weeks apart
-anemia
-hemorrhoids on exam
-hx mech MVR on Coumadin prior to admission
-hx post polypectomy bleeding/large TA polyp with prior EMR
-hypokalemia
other med problems:
-afib
-NIDDM
-CHF
-hx CABG
-Out of hospital arrest - ICD in place
-HTN
PLAN:
etiology of bleeding related to local process with note hemorrhoids on exam on admission, AVM with hx valvular disease, mass/polyp vs other
In light of 2 separate presentations with rectal bleeding and cardiac risks would proceed with inpatient procedure.
plan for tentative colonoscopy 05/07 if INR continued to go down
K 2.9 reviewed with hospitalist/resident for replacement prior to starting prep later today
clear diet and NPO in AM
hold fiber and oral iron with bowel prep
remains on heparin gtt now with plan for 6AM hold 05/07 prior to procedure
05/06 CXR pending
Subjective
Subjective
Date of Service: May 06, 2024
no further bleeding 05/03 brown watery stool
Objective
Data Reviewed
Laboratory Data:
Laboratory Results
05/06/24 09:34
05/06/24 09:34
Laboratory Results
PT 23.6 Sec (11.4-14.6) H 05/06/24 09:34
INR 2.12 05/06/24 09:34
APTT > 200 Sec (23.4-35.0) H* 05/06/24 09:34
Total Bilirubin 2.9 mg/dl (0.2-1.3) H 05/06/24 09:34
AST 54 U/L (14-36) H 05/06/24 09:34
ALT 21 U/L (0-35) 05/06/24 09:34
Alkaline Phosphatase 138 U/L (38-126) H 05/06/24 09:34
Vital Signs and I&O:
Vital Signs
Temp Pulse Resp BP Pulse Ox
97.8 F 85 16 134/73 100
05/06/24 08:00 05/06/24 08:00 05/06/24 08:00 05/06/24 08:00 05/06/24 08:00
I&O
05/05/24 05/06/24 05/07/24
06:59 06:59 06:59
Intake Total 970 / 970 1687 / 1687
Balance 970 / 970 1687 / 1687
Physical Exam
Physical Exam
HEENT: Anicteric and Moist mucous membranes
Cardiology: Normal Sinus Rhythm
Pulmonary: Clear
GI: Soft, Non Distended and Tender
Extremities: No Edema
Neuro: Non Focal
[2024-05-06 12:54] LABS: Glucose - Point of Care 249 mg/dl (70-99)
[2024-05-06] MEDS: NOVOLOG FLEXPEN-LOW RESISTANCE 2 UNITS SC (13:11)
--- NOTE | 2024-05-06 14:39 | W.PN.HOSP.TC ---
Addendum entered and electronically signed by Fermin Lemon MD 05/06/24 22:31:
Attending Addendum-
I saw and evaluated the patient. I reviewed the resident�s note and agree with findings and plan as documented in the resident�s note. Sub: denies dark stool patietn seems to have underlying dementia. 'wait what are you going to do to me?' No BRBPR.
asking the same questions over and over. Full 12 point ROS reviewed and negative except as documented Exam: Vitals reviewed in chart GEN-NAD heart irreg irreg crisp click heard @ apex abd soft LE no edema AAO x 2
# Lower GI bleed/ acute on chronic blood loss anemia exacerbated by Coumadin
- NO pain or active bleeding noted
- NPO after Mn
- cont IV Protonix BID
- Holding Coumadin, trend H&H , INR
- likely scopes 05/07
- await INR <1.5
- hold hep gtt in am
- repeat CBC in am
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
- ther INR is 2.5-3.5
- INR 2.1today
- hold coumadin
- cont heparin bridge while INR < 2.5
- monitor ptt
- cards on board
# CAD s/p CABG x 4 2008 - stable without angina.
#Hx of VF
stable on Toprol.
# JOJO on CKD stage 3B
- Creatinine @ 1.5-1.7 baseline
- now at baseline resolved
# Hypokalemia
- replete aggressively
- check mag
-Held potassium supplement
-Held spironolactone
-Continue torsemide
-Nephrology input appreciated
- repeat BMP in am
# hyponatremia
- resolved
#Chronic HFpEF
-Appears well compensated and not in acute heart failure
-Continue torsemide
-Hold metolazone, spironolactone
# Essential hypertension
# Type 2 diabetes
-Hold repaglinide
-Insulin sliding scale
# Hyperlipidemia
-Continue statin
# Gout
-Continue allopurinol
# History of subdural hemorrhage
History of tremors
Obesity
DNR/DNI
Dispo- home with [facility] on DC
Time spent coordinating care, review of plan of care with resident, personally reviewed records in EMR, med rec, consults, notes, labs, radiology, d/w nursing cards GI � 55 mins
Original Note:
Today's Communication/Plan
-
Replace K
Continue heparin drip less than 1.5 for colonoscopy tomorrow.
Tomorrow n.p.o.
Stop heparin drip in the a.m. for procedure
Assessment / Plan
Assessment / Plan
78-year-old female with past medical history of mechanical mitral valve replacement on chronic anticoagulation warfarin presented with rectal bleeding. Initial INR elevated. She denied any overt abdominal pain or vomiting.
# Lower GI bleed with acute on chronic blood loss anemia exacerbated by warfarin (INR 3.5)
Warfarin held, INR today 2.12 on Heparin drip
Goal INR <1.5 for colonoscopy tomorrow
Hold heparin drip in the am prior to colonoscopy
Transitioned to liquid diet. Tomorrow NPO for colonoscopy
trend H&H , INR
GI noted: since this is second time over the month likely will need endoscopic evaluation especially in light of large polyps in past.
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
goal INR is less than 1.5 for colonoscopy
INR is around 2.12 today
Continue heparin drip at recommended dose 18 u/Kg/h.
#SOB with exertion
Nurse states pt dyspnea with exertion. Patient denies
History of HFpEF
No crackles on physical exam but expiratory wheezing present
Slight lower extremity edema
O2 sats good
Continue torsemide per cardio and nephro
So far Metolazone 5mg per her usual home meds has not been needed
chest x-ray no signs of pulmonary edema
Cardiology following
#Transaminitis / increased bilirubin
-Monitor
-GI following
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
stable on Toprol.
# JOJO on CKD stage IV versus progression of CKD 4
# Hyperkalemia
-Creatinine anywhere between 1.5 to 2.1 at baseline
-Cr today 1.6 jojo resolved
-Potassium 5.2 on admission
-Today K 2.9 repleating
-Held spironolactone
-Continue torsemide per cards and nephro
#Hypokalemia
-Repleate as needed
# hyponatremia
Monitor BMP
#Chronic HFpEF
-Increase shortness of breath with exertion
-Chest x-ray no pulmonary edema
-Continue torsemide and metolazone as needed
-Hold spironolactone
#Essential hypertension
-BP stable
#Type 2 diabetes
-Hold repaglinide
-Insulin sliding scale
# CAD s/p CABG x 4 2008 - stable without angina.
#Hyperlipidemia -Continue statin
#Gout-Continue allopurinol
#History of subdural hemorrhage
#History of tremors
#Obesity
DNR/DNI
Anticipated Discharge: > 48 hours
Subjective/Interval History
-
Date of Service: May 06, 2024
Fatigued
Objective Data
-
Labs:
Laboratory Results
05/06/24 05/06/24 05/06/24
06:00 09:34 19:00
WBC 5.1
Hgb 11.6 L
Hct 34.5 L
Plt Count 135
PT Cancelled 23.6 H
INR Cancelled 2.12
APTT > 200 H* Pending
Sodium 134 L
Potassium 2.9 L
Chloride 95 L
Carbon Dioxide 26
BUN 70 H
Creatinine 1.6 H
Glucose 120 H
Calcium 9.4
Total Bilirubin 2.9 H
AST 54 H
ALT 21
Alkaline Phosphatase 138 H
Vital Signs:
Vital Signs
Temp Pulse Resp BP Pulse Ox
97.4 F 90 16 124/72 99
05/06/24 12:00 05/06/24 12:00 05/06/24 12:00 05/06/24 12:00 05/06/24 12:00
I&O
05/05/24 05/06/24 05/07/24
06:59 06:59 06:59
Intake Total 970 / 970 7 / 1687
Balance 970 / 970 1687 / 1687
Review of Systems
-
History Source: Patient
EENT: Reports No Symptoms Reported
Respiratory: Reports No Symptoms
Cardiac: Reports No Symptoms
Abdomen/GI: Reports No Symptoms
Neuro: Reports No Symptoms
Physical Exam
-
General: No Apparent Distress
HEENT: Normocephalic
Respiratory: Wheezes (expiratory wheezes)
Cardiac: Irregular Rhythm
GI: Soft and Nontender
Musculoskeletal: Edema, Right Lower Extrem (Slight) and Edema, Left Lower Extrem (Slight)
Neuro: AO x 3
Psych: Calm
--- NOTE | 2024-05-06 14:46 | CM ---
Case management following for discharge planning
Chart reviewed
For colonoscopy tomorrow
[facility] to follow when discharged
Plan - anticipate home with [facility] when medically ready
[2024-05-06] MEDS: KCL ELIXIR 40 MEQ PO ×2 (15:11→18:51)
--- NOTE | 2024-05-06 15:16 | W.PN.NEPH.PH ---
Today's Communication / Plan
-
replace k and recheck
Assessment/Plan
-
Impression:
Bright red blood per rectum
Acute kidney injury
CKD stage IIIb with baseline creatinine 1.7
Atrial fibrillation on chronic anticoagulation
Hypertension
Diabetes
Congestive heart failure with preserved EF
Valvular heart disease (hx of mechanical valve replacement)
CAD with history of CABG
ICD
Plan:
JOJO: cr at baseline 1.6
for C scope tomorrow
repalce k, recheck later today
cont diuretics (torsemide), hold in am for procedure
hemodynamically stable
heparin transition per cards
labs in am
-
-
Date of Service: May 06, 2024
CC / HPI / ROS
-
Chief Complaint:
Chronic kidney disease
History of Present Illness:
Creatinine bettr at 1.6, BUN 70
na low 134
k low 2.9
Hemodynamically stable
Hemoglobin remains stable
wt stable
Review of Systems:
Subjectively nonoliguric
No chest pain or shortness of breath
Labs
-
Labs:
WBC 5.1 10^3/uL (4.8-10.8) 05/06/24 09:34
RBC 3.59 10^6/uL (4.20-5.40) L 05/06/24 09:34
Hgb 11.6 g/dL (12.0-16.0) L 05/06/24 09:34
Hct 34.5 % (37.0-47.0) L 05/06/24 09:34
Plt Count 135 10^3/uL (130-400) 05/06/24 09:34
Sodium 134 mmol/L (135-145) L 05/06/24 09:34
Potassium 2.9 mmol/L (3.5-5.1) L 05/06/24 09:34
Chloride 95 mmol/L (98-107) L 05/06/24 09:34
Carbon Dioxide 26 mmol/L (22-30) 05/06/24 09:34
BUN 70 mg/dl (7-17) H 05/06/24 09:34
Creatinine 1.6 mg/dL (0.6-1.0) H 05/06/24 09:34
eGFR 32.40 05/06/24 09:34
Glucose 120 mg/dl (70-99) H 05/06/24 09:34
Calcium 9.4 mg/dl (8.4-10.2) 05/06/24 09:34
Albumin 4.3 g/dl (3.5-5.0) 05/06/24 09:34
Physical Exam
-
Vital Signs:
Vital Signs
Temp Pulse Resp BP Pulse Ox
97.4 F 90 16 124/72 99
05/06/24 12:00 05/06/24 12:00 05/06/24 12:00 05/06/24 12:00 05/06/24 12:00
Cardiovascular:: Regular rate and rhythm
Respiratory:: Bilateral: CTA
Lung Excursion:: Normal
Abdomen:: Nontender and Soft
Extremity Edema:: None: Bilateral: (trace)
Rockwell Catheter: No
[2024-05-06 17:21] LABS: Glucose - Point of Care 153 mg/dl (70-99)
[2024-05-06] MEDS: NULYTELY SOLUTION 2 LITERS PO (17:30)
[2024-05-06] MEDS: DEMADEX 20 MG PO (17:31)
[2024-05-06] MEDS: LIPITOR 40 MG PO (17:31)
[2024-05-06 18:53] LABS: Direct Bilirubin 0.8 mg/dl (0.0-0.4)
[2024-05-06 18:56] LABS: Blood Urea Nitrogen 66 mg/dl (7-17); Calcium 9.6 mg/dl (8.4-10.2); Carbon Dioxide 22 mmol/L (22-30); Estimated Creatinine Clearance 26 ml/min; Glucose 118 mg/dl (70-99); Magnesium 1.9 mg/dl (1.6-2.3); Potassium 4.4 mmol/L (3.5-5.1)
[2024-05-06 19:01] LABS: Chloride 97 mmol/L (98-107); Sodium 133 mmol/L (135-145)
[2024-05-06 19:28] LABS: APTT > 200 Sec (23.4-35.0)
[2024-05-06 21:14] LABS: Glucose - Point of Care 127 mg/dl (70-99)
[2024-05-06 22:11] LABS: INR 1.92; PT 21.8 Sec (11.4-14.6)
[2024-05-07] VITALS (10 sets, daily range): BP systolic 16–157; BP diastolic 59–96; BMI 31.0
[2024-05-07] MEDS: NULYTELY SOLUTION 2 LITERS PO (04:03)
[2024-05-07 04:21] LABS: Hematocrit 36.9 % (37.0-47.0); Hemoglobin 12.7 g/dL (12.0-16.0); INR 1.95; Mean Corp Hgb Conc. 34.4 g/dL (33.0-37.0); Mean Corpuscular Hgb 33.8 pg (27.0-31.0); Mean Corpuscular Volume 98.1 fL (81.0-99.0); Mean Platelet Volume 11.2 fL (7.4-10.4); PT 22.1 Sec (11.4-14.6); Platelet Count 137 10^3/uL (130-400); Red Blood Cell Count 3.76 10^6/uL (4.20-5.40); Red Cell Dist. Width 15.1 % (11.5-14.5); White Blood Cell Count 5.4 10^3/uL (4.8-10.8)
[2024-05-07 04:25] LABS: APTT 155.8 Sec (23.4-35.0)
[2024-05-07 05:05] LABS: Blood Urea Nitrogen 62 mg/dl (7-17); Calcium 9.5 mg/dl (8.4-10.2); Carbon Dioxide 21 mmol/L (22-30); Chloride 98 mmol/L (98-107); Estimated Creatinine Clearance 26 ml/min; Glucose 135 mg/dl (70-99); Potassium 4.8 mmol/L (3.5-5.1); Sodium 134 mmol/L (135-145)
[2024-05-07 06:50] LABS: Glucose - Point of Care 135 mg/dl (70-99)
[2024-05-07] MEDS: NOVOLOG FLEXPEN-LOW RESISTANCE SC ×3 (07:05→16:27)
[2024-05-07] MEDS: THERAGRAN 1 TABLET PO (08:53)
[2024-05-07] MEDS: TOPROL XL 25 MG PO ×2 (08:53→22:19)
[2024-05-07] MEDS: NSS (PRESERVATIVE FREE) 10 ML IV (08:53)
[2024-05-07] MEDS: PROTONIX IV 40 MG IV (08:53)
[2024-05-07] MEDS: COLACE PO (08:54)
[2024-05-07] MEDS: DESENEX/MITRAZOL/ZEASORB 1 APPLIC TOPICAL ×2 (08:54→22:18)
--- NOTE | 2024-05-07 09:32 | W.PN.HOSP.TC ---
Addendum entered and electronically signed by Fermin Lemon MD 05/07/24 23:37:
Attending Addendum-
I saw and evaluated the patient. I reviewed the resident�s note and agree with findings and plan as documented in the resident�s note. Sub: denies dark stool. 'what did they find?' No BRBPR. asking the same questions over and over. Full 12 point
ROS reviewed and negative except as documented Exam: Vitals reviewed in chart GEN-NAD heart irreg irreg crisp click heard @ apex abd soft LE no edema AAO x 2
# Lower GI bleed/ acute on chronic blood loss anemia exacerbated by Coumadin
- NO pain or active bleeding noted
- cont IV Protonix BID
- restart Coumadin, trend H&H, INR
- colonoscopy 05/07-2 small polyps transverse, sigmoid colon removed w cold forceps
Moderate internal hemorrhoids
- restart hep gtt bridge monitor APTT no bolus
- repeat CBC in am
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
- ther INR is 2.5-3.5
- restart coumadin
- restart heparin bridge until INR > 2.5
- monitor ptt
- cards on board
# CAD s/p CABG x 4 2008 - stable without angina.
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
stable on Toprol.
# JOJO on CKD stage 3B
- Creatinine @ 1.5-1.7 baseline
- now at baseline resolved
# Hypokalemia
-resolved s/p
-potassium supplement held likely restart
-spironolactone to restart
-Continue torsemide
-Nephrology input appreciated
- repeat BMP in am
# hyponatremia
- resolved
#Chronic HFpEF
-Appears well compensated and not in acute heart failure
-Continue torsemide
-Hold metolazone, spironolactone
# Essential hypertension
# Type 2 diabetes
-Hold repaglinide
-Insulin sliding scale
# Hyperlipidemia
-Continue statin
# Gout
-Continue allopurinol
# History of subdural hemorrhage
History of tremors
Obesity
DNR/DNI
Dispo- DC home with VN when INR therapeutic
Time spent coordinating care, review of plan of care with resident, personally reviewed records in EMR, med rec, consults, notes, labs, radiology, d/w nursing cards GI � 59 mins
Original Note:
Today's Communication/Plan
-
Restart heparin drip bridge to warfarin
Monitor INR
Assessment / Plan
Assessment / Plan
78-year-old female with past medical history of mechanical mitral valve replacement on chronic anticoagulation warfarin presented with rectal bleeding. Initial INR elevated. She denied any overt abdominal pain or vomiting.
# Lower GI bleed with acute on chronic blood loss anemia exacerbated by warfarin (INR 3.5)
Heparin drip d/c 6am this morning. INR today 1.85
Colonoscopy found two small polyps and hemorrhoids
GI and Cards okay re-starting heparin drip bridge to warfarin
trend H&H , INR
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
goal INR is less than 1.5 for colonoscopy
INR is 1.85
Colonoscopy done
Heparin drip restarted bridge to warfarin
Start home dose warfarin 2.5 tonight per cards
#SOB with exertion
Nurse states pt dyspnea with exertion. Patient denies
History of HFpEF
No crackles on physical exam but expiratory wheezing present
Slight lower extremity edema
O2 sats good
Continue torsemide per cardio and nephro
So far Metolazone 5mg per her usual home meds has not been needed
Cardiology following
#Transaminitis / increased bilirubin
-Monitor
-GI following
#Hx of VF
stable on Toprol.
# JOJO on CKD stage IV versus progression of CKD 4
# Hyperkalemia
-Creatinine anywhere between 1.5 to 2.1 at baseline
-Cr today 1.6 jojo resolved
-K 4.8
-Held spironolactone
-Continue torsemide per cards and nephro
#Hypokalemia
-Resolved
# hyponatremia
Monitor BMP
#Chronic HFpEF
-Increase shortness of breath with exertion
-Chest x-ray no pulmonary edema
-Continue torsemide and metolazone as needed
-Hold spironolactone
#Essential hypertension
-BP stable
#Type 2 diabetes
-Hold repaglinide
-Insulin sliding scale
# CAD s/p CABG x 4 2008 - stable without angina.
#Hyperlipidemia -Continue statin
#Gout-Continue allopurinol
#History of subdural hemorrhage
#History of tremors
#Obesity
DNR/DNI
Anticipated Discharge: > 48 hours
Subjective/Interval History
-
Date of Service: May 07, 2024
Objective Data
-
Labs:
Laboratory Results
05/06/24 05/07/24 05/07/24
21:54 03:51 06:00
WBC 5.4
Hgb 12.7
Hct 36.9 L
Plt Count 137
PT 21.8 H 22.1 H Cancelled
INR 1.92 1.95 Cancelled
APTT 155.8 H*
Sodium 134 L
Potassium 4.8
Chloride 98
Carbon Dioxide 21 L
BUN 62 H
Creatinine 1.6 H
Glucose 135 H
Calcium 9.5
05/07/24
10:00
WBC
Hgb
Hct
Plt Count
PT Pending
INR Pending
APTT
Sodium
Potassium
Chloride
Carbon Dioxide
BUN
Creatinine
Glucose
Calcium
Vital Signs:
Vital Signs
Temp Pulse Resp BP Pulse Ox
97.6 F 114 14 139/96 100
05/07/24 07:11 05/07/24 07:11 05/07/24 07:11 05/07/24 07:11 05/07/24 07:11
I&O
05/06/24 05/07/24 05/08/24
06:59 06:59 06:59
Intake Total 1687 / 1687 2400 / 2400
Balance 1687 / 1687 2400 / 2400
Review of Systems
-
History Source: Patient
Constitutional: Reports Fatigue (Up all night passing stool with bowel prep) and Sleep Disturbance
EENT: Reports No Symptoms Reported
Respiratory: Reports No Symptoms
Cardiac: Reports No Symptoms
Abdomen/GI: Reports Vomiting (Threw up last night with streak of blood in vomit), Diarrhea (With bowel prep) and Hematemesis (Streak of blood in vomit noted by nurse)
Genitourinary: Reports No Symptoms
Neuro: Reports No Symptoms
Physical Exam
-
Respiratory: Wheezes (expiratory wheeze)
Cardiac: Irregular Rhythm and Murmur
GI: Soft
Skin: Warm
Neuro: AO x 3
Psych: Calm
--- NOTE | 2024-05-07 10:15 | W.PN.CD ---
Today's Communication / Plan
-
- Resume IV heparin only when OK from GI perspective
- Hope to resume warfarin day of or day after colonoscopy
- Volume status seems OK.
Impression / Plan
-
BRBPR
- For colonoscopy when INR allows
Anticoagulation
- Given [facility] MVR/bioTAVR/AFib/Heart failure => IV Heparin bridge (watch for resumption of bleeding)
- Resume IV heparin only when OK from GI perspective
- Hope to resume warfarin day of or day after colonoscpy
JOJO on CKD4.
- Aldactone on hold, anticipate resuming later
HFpEF - chronic.
- High risk situation with CKD4 and cardiorenal syndrome.
- typically dry weight 155lb at home, but the last 2 weeks she reports weight 160-162 lbs.
- Continue torsemide 40mg AM, 20mg PM; SO FAR has not needed her usual metolazone 5mg //;
- Holding Aldactone 25mg daily; KCl 30 mEq AM, 10 mEq PM.
Valvular heart disease
- TAVR 09/2022
- mechanical MVR 2008
- severe TR
Permanent A fib - stable, rate controlled on Toprol XL 25mg bid.
- chronic Coumadin as above.
VF, pior primary
- Secondary prevention ICD in place
CAD s/p CABG x 2008 - stable without angina.
- not on ASA since [facility], and also had SDH in recent past.
- continue atorvastatin 40mg daily. Last LDL at goal at 59.
Subjective:
- DOBBINS noted by PT/nursing yesterday. Today pt denies dyspnea
Physical Exam
Vital Signs/Labs
Vital Signs
Temp Pulse Resp BP Pulse Ox
97.6 F 114 14 139/96 100
05/07/24 07:11 05/07/24 07:11 05/07/24 07:11 05/07/24 07:11 05/07/24 07:11
05/06/24 05/07/24 05/08/24
06:59 06:59 06:59
Actual Weight 73.709 kg 74.298 kg
05/07/24 03:51
05/07/24 03:51
PT Cancelled 05/07/24 06:00
INR Cancelled 05/07/24 06:00
APTT 155.8 Sec (23.4-35.0) H* 05/07/24 03:51
Magnesium 1.9 mg/dl (1.6-2.3) 05/06/24 18:37
Physical Exam
Constitutional: No acute distress
EENT: Anicteric
Cardiovascular: S1S2 is normal (mech mv sounds)
Respiratory: Respiratory effort normal and Lungs clear to auscul.
GI: Soft and Distention absent
Neuro/Psych: Alert
Data Reviewed
-
Date of Service: May 07, 2024
[2024-05-07 10:59] LABS: INR 1.85; PT 21.5 Sec (11.4-14.6)
[2024-05-07 12:16] LABS: Glucose - Point of Care 128 mg/dl (70-99)
--- NOTE | 2024-05-07 13:04 | W.PN.NEPH.PH ---
Today's Communication / Plan
-
gfr at baseline
maintain diuretics
Assessment/Plan
-
Impression:
Bright red blood per rectum
Acute kidney injury
CKD stage IIIb with baseline creatinine 1.7
Atrial fibrillation on chronic anticoagulation
Hypertension
Diabetes
Congestive heart failure with preserved EF
Valvular heart disease (hx of mechanical valve replacement)
CAD with history of CABG
ICD
Plan:
JOJO: cr at baseline 1.6
for C scope today
cont diuretics (torsemide), hold in am for procedure
hemodynamically stable
heparin transition per cards
labs in am
-
-
Date of Service: May 07, 2024
CC / HPI / ROS
-
Chief Complaint:
Chronic kidney disease
History of Present Illness:
Creatinine bettr at 1.6, BUN 62
na low 134
k low 2.9
Hemodynamically stable
Hemoglobin remains stable
wt stable
Review of Systems:
Subjectively nonoliguric
No chest pain or shortness of breath
Labs
-
Labs:
WBC 5.4 10^3/uL (4.8-10.8) 05/07/24 03:51
RBC 3.76 10^6/uL (4.20-5.40) L 05/07/24 03:51
Hgb 12.7 g/dL (12.0-16.0) 05/07/24 03:51
Hct 36.9 % (37.0-47.0) L 05/07/24 03:51
Plt Count 137 10^3/uL (130-400) 05/07/24 03:51
Sodium 134 mmol/L (135-145) L 05/07/24 03:51
Potassium 4.8 mmol/L (3.5-5.1) 05/07/24 03:51
Chloride 98 mmol/L (98-107) 05/07/24 03:51
Carbon Dioxide 21 mmol/L (22-30) L 05/07/24 03:51
BUN 62 mg/dl (7-17) H 05/07/24 03:51
Creatinine 1.6 mg/dL (0.6-1.0) H 05/07/24 03:51
eGFR 32.40 05/07/24 03:51
Glucose 135 mg/dl (70-99) H 05/07/24 03:51
Calcium 9.5 mg/dl (8.4-10.2) 05/07/24 03:51
Albumin 4.3 g/dl (3.5-5.0) 05/06/24 09:34
Physical Exam
-
Vital Signs:
Vital Signs
Temp Pulse Resp BP Pulse Ox
97.4 F 97 16 126/74 99
05/07/24 12:58 05/07/24 12:58 05/07/24 12:58 05/07/24 12:58 05/07/24 12:58
Cardiovascular:: Regular rate and rhythm
Respiratory:: Bilateral: CTA
Lung Excursion:: Normal
Abdomen:: Nontender and Soft
Extremity Edema:: None: Bilateral: (trace)
Rockwell Catheter: No
--- NOTE | 2024-05-07 13:05 | W.PN.UPDATE ---
Update Note
Progress Note Update
Colonoscopy done
2 small polyps transverse, sigmoid colon removed w cold forceps
Moderate internal hemorrhoids
Tattoo in descending colon- normal
REC:
Await path
Resume diet
OK to resume anticoagulation
If ongoing bleeding refer to Colorectal Surgery to treat hemorrhoids
--- NOTE | 2024-05-07 13:32 | PTCARENOTE ---
pt received from PACU with ONLINE COMMUNICATIONS MANAGER, post colonoscopy. pt is drowsy, but arousable and oriented. no c/o of pain or discomfort. spouse present
[2024-05-07 13:59] LABS: APTT 47.7 Sec (23.4-35.0)
--- NOTE | 2024-05-07 14:21 | CM ---
Case management following for discharge planning
Chart reviewed
Colonoscopy today
[facility] to follow at discharge
Plan - anticipate home with [facility] when medically ready
[2024-05-07] MEDS: HEPARIN 25000 UNITS/250 ML IV (14:45)
[2024-05-07 16:25] LABS: Glucose - Point of Care 145 mg/dl (70-99)
[2024-05-07] MEDS: DEMADEX 20 MG PO (18:06)
[2024-05-07] MEDS: COUMADIN 2.5 MG PO (18:06)
[2024-05-07] MEDS: LIPITOR 40 MG PO (18:06)
[2024-05-07 21:20] LABS: Glucose - Point of Care 233 mg/dl (70-99)
[2024-05-07 21:28] LABS: APTT 70.8 Sec (23.4-35.0)
[2024-05-07] MEDS: PROTONIX 40 MG PO (22:18)
[2024-05-08] VITALS (7 sets, daily range): BP systolic 111–136; BP diastolic 59–87; PULSE 106; O2SAT 100; BMI 31.1
--- NOTE | 2024-05-08 01:00 | PTCARENOTE ---
0030 Pt on tele monitor HR sustaining 130s after giving 2200 toprol xl. house [employer] TICKET CHECKER notified. ordered to give stat dose metoprolol 2.5 IV. HR decreased to 80s-90s
[2024-05-08] MEDS: LOPRESSOR 2.5 MG IV (01:13)
[2024-05-08 03:34] LABS: Hematocrit 32.4 % (37.0-47.0); Hemoglobin 11.4 g/dL (12.0-16.0); Mean Corp Hgb Conc. 35.2 g/dL (33.0-37.0); Mean Corpuscular Hgb 34.1 pg (27.0-31.0); Mean Platelet Volume 10.2 fL (7.4-10.4); Platelet Count 131 10^3/uL (130-400); Red Blood Cell Count 3.34 10^6/uL (4.20-5.40); Red Cell Dist. Width 14.8 % (11.5-14.5); White Blood Cell Count 6.1 10^3/uL (4.8-10.8)
[2024-05-08 03:47] LABS: INR 1.97; PT 22.6 Sec (11.4-14.6)
[2024-05-08 03:49] LABS: APTT 104.1 Sec (23.4-35.0)
[2024-05-08 04:13] LABS: ALT (SGPT) 25 U/L (0-35); AST (SGOT) 66 U/L (14-36); Albumin 3.9 g/dl (3.5-5.0); Alkaline Phosphatase 147 U/L (38-126); Blood Urea Nitrogen 59 mg/dl (7-17); Calcium 9.2 mg/dl (8.4-10.2); Carbon Dioxide 17 mmol/L (22-30); Chloride 99 mmol/L (98-107); Estimated Creatinine Clearance 26 ml/min; Glucose 149 mg/dl (70-99); Potassium 4.7 mmol/L (3.5-5.1); Sodium 131 mmol/L (135-145); Total Bilirubin 2.6 mg/dl (0.2-1.3); Total Protein 6.6 g/dl (6.3-8.2)
[2024-05-08 07:36] LABS: Glucose - Point of Care 141 mg/dl (70-99)
--- NOTE | 2024-05-08 07:40 | W.PN.HOSP.TC ---
Addendum entered and electronically signed by Fermin Lemon MD 05/09/24 00:43:
Attending Addendum-
I saw and evaluated the patient. I reviewed the resident�s note and agree with findings and plan as documented in the resident�s note. Sub: No BRBPR. asking the same questions over and over. 'im not going to a rehab!' seen with . didn't sleep
well. takes Ambien every night. Full 12 point ROS reviewed and negative except as documented Exam: Vitals reviewed in chart GEN-NAD heart irreg irreg crisp click heard @ apex Lungs scattered exp wheeze abd soft LE no edema AAO x 2
# Lower GI bleed/ acute on chronic blood loss anemia exacerbated by Coumadin
- NO active bleeding noted
- cont IV Protonix BID->switch to PO daily
- restarted Coumadin, trend H&H, INR
- colonoscopy 05/07-2 small polyps transverse, sigmoid colon removed w cold forceps
Moderate internal hemorrhoid
- restarted hep gtt bridge monitor APTT no bolus
- start hydrocort
- repeat CBC in am
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
- ther INR is 2.5-3.5
- restarted coumadin
- heparin bridge until INR > 2.5
- monitor ptt
- cards on board
# CAD s/p CABG x 4 2008 - stable without angina.
#Hx of VF
-stable on Toprol.
# JOJO on CKD stage 3B
- Creatinine @ 1.5-1.7 baseline
- now at baseline resolved
# Hypokalemia
-resolved
-potassium supplement held
-spironolactone to restart
-Continue torsemide
-Nephrology input appreciated
- repeat BMP in am
# Hyponatremia from SIADH
- fluid restrict
- repeat BMP in am
#Chronic HFpEF
-Appears well compensated and not in acute heart failure
-Continue torsemide
-Hold metolazone, spironolactone
# Essential hypertension
# Type 2 diabetes
-Hold repaglinide restart on DC
-Insulin sliding scale
# Hyperlipidemia
-Continue statin
# Gout
-Continue allopurinol
# History of subdural hemorrhage
# insomnia
- restart ambien q hs takes chronically not prn
DNR/DNI
Dispo- DC home with VN unlikely will need SNF await therapeutic INR
Time spent coordinating care, review of plan of care with resident, personally reviewed records in EMR, med rec, consults, notes, labs, radiology, d/w nursing � 59 mins
Original Note:
Today's Communication/Plan
-
Continue heparin drip to bridge to warfarin until INR 2.5
Repeat H&H in the afternoon to monitor hemoglobin
Assessment / Plan
Assessment / Plan
78-year-old female with past medical history of mechanical mitral valve replacement on chronic anticoagulation warfarin presented with rectal bleeding. Initial INR elevated. She denied any overt abdominal pain or vomiting.
# Lower GI bleed with acute on chronic blood loss anemia exacerbated by warfarin (INR 3.5)
Heparin drip d/c 6am this morning. INR today 1.97
Protonix IV switched to PO
Colonoscopy 05/07 found two small polyps, hemorrhoids and sigmoid colon removed with cold forceps
Heparin drip bridge to warfarin no bolus in first 24 hrs after colonoscopy (restart bolus protocol today 3pm)
Hemoglobin 12.7 yesterday, today 11.4, repeat CBC in afternoon
Monitor APTT
trend H&H , INR
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
goal INR for MMV 2.5-3.5
INR is 1.97
Continue Heparin drip restarted bridge to warfarin until INR therapeutic
Cards following
#SOB with exertion
Patient currently denies any SOB, chest pain or heart palpitations
History of HFpEF
O2 sats good
Continue torsemide per cardio and nephro
So far Metolazone 5mg per her usual home meds has not been needed
Cardiology following
#Transaminitis / increased bilirubin
Monitor
GI following
#Hx of VF
stable on Toprol.
# JOJO on CKD stage 3b
Cr today 1.6 jojo resolved
Continue torsemide per cards and nephro
#Hypokalemia
Resolved
Continue torsemide
Spironolactone restart
# hyponatremia
resolved
Monitor BMP
#Chronic HFpEF
-Increase shortness of breath with exertion
-Chest x-ray no pulmonary edema
-Continue torsemide and metolazone as needed
-Hold spironolactone
#Essential hypertension
-BP stable
#Type 2 diabetes
-Hold repaglinide
-Insulin sliding scale
# CAD s/p CABG x 4 2008 - stable without angina.
#Hyperlipidemia -Continue statin
#Gout-Continue allopurinol
#History of subdural hemorrhage
#History of tremors
#Obesity
DNR/DNI
Anticipated Discharge: > 48 hours
Subjective/Interval History
-
Date of Service: May 08, 2024
Objective Data
-
Labs:
Laboratory Results
05/07/24 05/08/24 05/08/24
21:10 03:25 09:25
WBC 6.1
Hgb 11.4 L
Hct 32.4 L
Plt Count 131
PT 22.6 H
INR 1.97
APTT 70.8 H 104.1 H Pending
Sodium 131 L
Potassium 4.7
Chloride 99
Carbon Dioxide 17 L
BUN 59 H
Creatinine 1.6 H
Glucose 149 H
Calcium 9.2
Total Bilirubin 2.6 H
AST 66 H
ALT 25
Alkaline Phosphatase 147 H
Vital Signs:
Vital Signs
Temp Pulse Resp BP Pulse Ox
98.2 F 112 20 125/83 96
05/08/24 03:10 05/08/24 03:10 05/08/24 03:10 05/08/24 03:10 05/08/24 03:10
I&O
05/07/24 05/08/24 05/09/24
06:59 06:59 06:59
Intake Total 2400 / 2400 1919
Balance 2400 / 2400 1919
Review of Systems
-
History Source: Patient
Constitutional: Reports Fatigue
Respiratory: Reports No Symptoms
Cardiac: Reports No Symptoms
Abdomen/GI: Reports No Symptoms
Genitourinary: Reports No Symptoms
Neuro: Reports No Symptoms
Physical Exam
-
General: Other (Fatigued)
Respiratory: Clear to Auscultation
Cardiac: Irregular Rhythm, Murmur and Tachycardic
GI: Soft and Nontender
Musculoskeletal: No Edema
Skin: Warm
Neuro: AO x 3
Psych: Calm
--- NOTE | 2024-05-08 07:53 | W.PN.CD ---
Today's Communication / Plan
-
Cont heparin gtt
Monitor INR
Monitor CBC
Impression / Plan
-
BRBPR
- colonoscopy yesterday, monitor Hgb
Anticoagulation INR goal 2.5-3
- Given [facility] MVR/bioTAVR/AFib/Heart failure => IV Heparin bridge (watch for resumption of bleeding)
- Resume IV heparin only when OK from GI perspective
- now s/p colonoscopy, IV heparin on, INR today 1.9
JOJO on CKD4.
- Aldactone on hold, anticipate resuming later
HFpEF - chronic.
- High risk situation with CKD4 and cardiorenal syndrome.
- typically dry weight 155lb at home, but the last 2 weeks she reports weight 160-162 lbs.
- Continue torsemide 40mg AM, 20mg PM; SO FAR has not needed her usual metolazone 5mg M//;
- Holding Aldactone 25mg daily; KCl 30 mEq AM, 10 mEq PM.
Valvular heart disease
- TAVR 09/2022
- mechanical MVR 2008
- severe TR
Permanent A fib - stable, rate controlled on Toprol XL 25mg bid.
- chronic Coumadin as above.
- HRs elevated overngiht, but agitated and did not sleep all night
- monitor, can increase if needed
VF, pior primary
- Secondary prevention ICD in place
CAD s/p CABG x 4 2008 - stable without angina.
- not on ASA since on Coumadin for A fib/mech MVR, and also had SDH in recent past.
- continue atorvastatin 40mg daily. Last LDL at goal at 59.
CKD
- nephro following
Subjective:
- Patient feels exhausted did not sleep overnight and wasn't given her ambien
Physical Exam
Vital Signs/Labs
Vital Signs
Temp Pulse Resp BP Pulse Ox
98.2 F 112 20 125/83 96
05/08/24 03:10 05/08/24 03:10 05/08/24 03:10 05/08/24 03:10 05/08/24 03:10
05/07/24 05/08/24 05/09/24
06:59 06:59 06:59
Actual Weight 163 lb 12.8 oz 164 lb 11.2 oz
05/08/24 03:25
05/08/24 03:25
PT 22.6 Sec (11.4-14.6) H 05/08/24 03:25
INR 1.97 05/08/24 03:25
APTT 104.1 Sec (23.4-35.0) H 05/08/24 03:25
Magnesium 1.9 mg/dl (1.6-2.3) 05/06/24 18:37
Physical Exam
Constitutional: Other (fatigued appearing)
EENT: Anicteric
Cardiovascular: Rhythm/rate is irregular
Respiratory: Respiratory effort normal and Lungs clear to auscul.
GI: Soft
Neuro/Psych: Alert and Oriented
Data Reviewed
-
Date of Service: May 08, 2024
EKG: Tracing Personally Visualized and interpreted (af)
Echo: Report Reviewed by me
Labs: Labs Reviewed by me
[2024-05-08] MEDS: NOVOLOG FLEXPEN-LOW RESISTANCE SC ×2 (08:24→13:17)
[2024-05-08] MEDS: ZYLOPRIM 50 MG PO (08:37)
[2024-05-08] MEDS: DEMADEX 40 MG PO (08:38)
[2024-05-08] MEDS: TOPROL XL 25 MG PO ×2 (08:38→20:02)
[2024-05-08] MEDS: THERAGRAN 1 TABLET PO (08:38)
[2024-05-08] MEDS: COLACE 100 MG PO (08:38)
[2024-05-08] MEDS: DESENEX/MITRAZOL/ZEASORB 1 APPLIC TOPICAL ×2 (08:39→20:03)
[2024-05-08] MEDS: PROTONIX 40 MG PO ×2 (08:39→20:02)
--- NOTE | 2024-05-08 08:50 | W.PN.GI.CBS2 ---
Today's Communication / Plan
-
Colonoscopy showed small polyps and hemorrhoids, likely the cause for bleeding
OK to resume anticoagulation
Diet resumed
I spoke with , recommend metamucil and prn HC cream. Call if recurrent bleeding and can consider colorectal surgery eval
Will sign off.
Assessment / Plan
-
Pt is a 78yo with hx multiple med problems including, Afib, out of hospital arrest with ICD, prior CABG, mech MVR on chronic Coumadin, HTN, NIDDM, CKD, prior GI bleed- post polypectomy bleeding, colon polyps with EMR in 2021 of large TA TC polyp.
Last colonoscopy [address] Bullard with resection of multiple TA, SSA, and HP polyp including large Transverse colon polyp with EMR. Last EGD 2020 with esophageal nodule, HH, with neg bx. Pt now presents with rectal bleeding 2 weeks ago with
recurrent after admission. hbg 11.3 on admission with stable hbg and decreased bleeding during admission.
-GI bleeding with 2 episode 2 weeks apart
-anemia
-hemorrhoids on exam
-hx mech MVR on Coumadin prior to admission
-hx post polypectomy bleeding/large TA polyp with prior EMR
-hypokalemia
other med problems:
-afib
-NIDDM
-CHF
-hx CABG
-Out of hospital arrest - ICD in place
-HTN
Subjective
Subjective
Date of Service: May 08, 2024
No complaints. No bleeding. Slept poorly
Objective
Data Reviewed
Laboratory Data:
Laboratory Results
05/08/24 03:25
Laboratory Results
PT 22.6 Sec (11.4-14.6) H 05/08/24 03:25
INR 1.97 05/08/24 03:25
APTT 104.1 Sec (23.4-35.0) H 05/08/24 03:25
Magnesium 1.9 mg/dl (1.6-2.3) 05/06/24 18:37
Total Bilirubin 2.6 mg/dl (0.2-1.3) H 05/08/24 03:25
AST 66 U/L (14-36) H 05/08/24 03:25
ALT 25 U/L (0-35) 05/08/24 03:25
Alkaline Phosphatase 147 U/L (38-126) H 05/08/24 03:25
Vital Signs and I&O:
Vital Signs
Temp Pulse Resp BP Pulse Ox
98.6 F 92 14 136/79 96
05/08/24 07:35 05/08/24 08:38 05/08/24 07:35 05/08/24 08:38 05/08/24 07:35
I&O
05/07/24 05/08/24 05/09/24
06:59 06:59 06:59
Intake Total 2400 / 2400 1919
Balance 2400 / 2400 1919
Physical Exam
Physical Exam
GI: Soft and Non Distended
[2024-05-08 10:04] LABS: Hematocrit 33.4 % (37.0-47.0); Hemoglobin 11.7 g/dL (12.0-16.0); Mean Corpuscular Hgb 34.2 pg (27.0-31.0); Mean Corpuscular Volume 97.7 fL (81.0-99.0); Platelet Count 143 10^3/uL (130-400); Red Blood Cell Count 3.42 10^6/uL (4.20-5.40); Red Cell Dist. Width 14.8 % (11.5-14.5); White Blood Cell Count 5.6 10^3/uL (4.8-10.8)
[2024-05-08 10:27] LABS: APTT 163.4 Sec (23.4-35.0)
[2024-05-08 13:18] LABS: Glucose - Point of Care 136 mg/dl (70-99)
--- NOTE | 2024-05-08 14:05 | W.PN.NEPH.PH ---
Today's Communication / Plan
-
Observe
Implemented 50 ounce fluid restriction for hyponatremia
Assessment/Plan
-
Impression:
Bright red blood per rectum
Acute kidney injury
CKD stage IIIb with baseline creatinine 1.7
Atrial fibrillation on chronic anticoagulation
Hypertension
Hyponatremia
Diabetes
Congestive heart failure with preserved EF
Valvular heart disease (hx of mechanical valve replacement)
CAD with history of CABG
ICD
Plan:
JOJO: cr at baseline 1.6
Status post colonoscopy yesterday, 2 small polyps removed moderate internal hemorrhoids
continue diuretics (torsemide),
hemodynamically stable
heparin transition per cards
labs in am
-
-
Date of Service: May 08, 2024
CC / HPI / ROS
-
Chief Complaint:
Chronic kidney disease
History of Present Illness:
Creatinine bettr at 1.6, BUN 59
na low 131
k 4.7
Hemodynamically stable
Hemoglobin remains stable
Review of Systems:
Subjectively nonoliguric
No chest pain or shortness of breath
Labs
-
Labs:
WBC Cancelled 05/08/24 20:45
RBC Cancelled 05/08/24 20:45
Hgb Cancelled 05/08/24 20:45
Hct Cancelled 05/08/24 20:45
Plt Count Cancelled 05/08/24 20:45
Sodium 131 mmol/L (135-145) L 05/08/24 03:25
Potassium 4.7 mmol/L (3.5-5.1) 05/08/24 03:25
Chloride 99 mmol/L (98-107) 05/08/24 03:25
Carbon Dioxide 17 mmol/L (22-30) L 05/08/24 03:25
BUN 59 mg/dl (7-17) H 05/08/24 03:25
Creatinine 1.6 mg/dL (0.6-1.0) H 05/08/24 03:25
eGFR 32.40 05/08/24 03:25
Glucose 149 mg/dl (70-99) H 05/08/24 03:25
Calcium 9.2 mg/dl (8.4-10.2) 05/08/24 03:25
Albumin 3.9 g/dl (3.5-5.0) 05/08/24 03:25
Physical Exam
-
Vital Signs:
Vital Signs
Temp Pulse Resp BP Pulse Ox
97 F 93 14 113/75 98
05/08/24 11:44 05/08/24 11:44 05/08/24 11:44 05/08/24 11:44 05/08/24 11:44
Cardiovascular:: Regular rate and rhythm
Respiratory:: Bilateral: CTA
Lung Excursion:: Normal
Abdomen:: Nontender and Soft
Extremity Edema:: None: Bilateral: (trace)
Rockwell Catheter: No
--- NOTE | 2024-05-08 14:50 | CM ---
Case management following for discharge planning
Chart reviewed
Fld restriction
Heparin drip to warfarin bridge
Accepted by [facility] for home care needs
Plan - anticipate home with [facility] when medically ready
[2024-05-08 17:15] LABS: Glucose - Point of Care 157 mg/dl (70-99)
[2024-05-08] MEDS: NOVOLOG FLEXPEN-LOW RESISTANCE 1 UNITS SC (17:19)
[2024-05-08] MEDS: COUMADIN 2.5 MG PO (17:20)
[2024-05-08] MEDS: DEMADEX 20 MG PO (17:27)
[2024-05-08] MEDS: LIPITOR 40 MG PO (17:27)
[2024-05-08 21:35] LABS: Glucose - Point of Care 154 mg/dl (70-99)
[2024-05-09] VITALS (8 sets, daily range): BP systolic 114–131; BP diastolic 62–84; PULSE 95–101; O2SAT 99; BMI 30.6
[2024-05-09 01:28] LABS: APTT 78.7 Sec (23.4-35.0)
--- NOTE | 2024-05-09 01:38 | PTCARENOTE ---
Pt was educated on need to call if pt needs ambien for sleep this evening at the beginning of the shift. Pt was assessed multiple times during the evening and was asleep. Pt had lab draw at 0030 and woke up shortly thereafter. @0100 pt asked for PRN
ambien, but order was changed from PRN to scheduled starting 05/090. Pt made aware of this but stated, 'you didn't give it to me last night either'. RN explained that RN was not pt's nurse last evening and that the patient was asleep during
rounds this evening. Pt denied being asleep and began crying, stating that she'll be up all night again bc no one gave her ambien. TT [employer] FABRICATOR OR WELDER on duty. STAT order of Ambien placed.
[2024-05-09] MEDS: AMBIEN 5 MG PO ×2 (01:49→21:01)
[2024-05-09 06:27] LABS: Hematocrit 30.3 % (37.0-47.0); Hemoglobin 10.5 g/dL (12.0-16.0); Mean Corp Hgb Conc. 34.7 g/dL (33.0-37.0); Mean Corpuscular Hgb 32.9 pg (27.0-31.0); Mean Platelet Volume 11.5 fL (7.4-10.4); Platelet Count 137 10^3/uL (130-400); Red Blood Cell Count 3.19 10^6/uL (4.20-5.40); Red Cell Dist. Width 14.6 % (11.5-14.5); White Blood Cell Count 4.5 10^3/uL (4.8-10.8)
[2024-05-09 06:33] LABS: INR 1.97; PT 22.6 Sec (11.4-14.6)
[2024-05-09 06:57] LABS: ALT (SGPT) 22 U/L (0-35); AST (SGOT) 53 U/L (14-36); Albumin 3.5 g/dl (3.5-5.0); Alkaline Phosphatase 134 U/L (38-126); Blood Urea Nitrogen 63 mg/dl (7-17); Calcium 8.9 mg/dl (8.4-10.2); Carbon Dioxide 21 mmol/L (22-30); Chloride 100 mmol/L (98-107); Estimated Creatinine Clearance 24 ml/min; Glucose 119 mg/dl (70-99); Potassium 3.6 mmol/L (3.5-5.1); Sodium 135 mmol/L (135-145); Total Bilirubin 1.8 mg/dl (0.2-1.3); Total Protein 6.1 g/dl (6.3-8.2); eGFR 30.13
[2024-05-09 07:15] LABS: APTT 75.9 Sec (23.4-35.0)
[2024-05-09 07:19] LABS: Glucose - Point of Care 131 mg/dl (70-99)
[2024-05-09] MEDS: NOVOLOG FLEXPEN-LOW RESISTANCE SC (08:00)
--- NOTE | 2024-05-09 08:39 | W.PN.HOSP.TC ---
Addendum entered and electronically signed by Fermin Lemon MD 05/09/24 22:22:
Attending Addendum-
I saw and evaluated the patient. I reviewed the resident�s note and agree with findings and plan as documented in the resident�s note. Sub: No further BRBPR. sleeping comfortably on entry. didnt sleep well last PM. No complaints. Full 12 point ROS
reviewed and negative except as documented Exam: Vitals reviewed in chart GEN-NAD heart irreg irreg crisp click heard @ apex Lungs CTA B/L abd soft LE no edema AAO x 2
# Lower GI bleed/ acute on chronic blood loss anemia exacerbated by Coumadin
- NO active bleeding noted
- cont PO Protonix
- colonoscopy 05/07-2 small polyps transverse, sigmoid colon removed w cold forceps
Moderate internal hemorrhoid
- cont hep gtt bridge monitor APTT no bolus
- cont hydrocort NV
- repeat CBC in am
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
- ther INR is 2.5-3.5
- cont coumadin
- current INR 1.97
- heparin bridge until INR > 2.5
- monitor ptt /INR
- cards-signed off
# CAD s/p CABG x 4 2008 - stable without angina.
#Hx of VF
-stable on Toprol.
# JOJO on CKD stage 3B
- Creatinine @ 1.5-1.7 baseline
- now at baseline resolved
# Hypokalemia
-replete prn
-potassium supplement held
-spironolactone dc'd not to restart on DC
-Continue torsemide
-Nephrology input appreciated
- repeat BMP in am
# Hyponatremia from SIADH
- resolved
- fluid restrict
- repeat BMP in am
#Chronic HFpEF
-Appears well compensated and not in acute heart failure
-Continue torsemide
-Hold metolazone, DC spironolactone
# Essential hypertension
# Type 2 diabetes
-Hold repaglinide restart on DC
-Insulin sliding scale
# Hyperlipidemia
-Continue statin
# Gout
-Continue allopurinol
# History of subdural hemorrhage
# insomnia
- restart ambien q hs takes chronically not prn
DNR/DNI
Dispo- DC home with VN - await therapeutic INR
Time spent coordinating care, review of plan of care with resident, personally reviewed records in EMR, med rec, consults, notes, labs, radiology, d/w nursing cards � 53 mins
Original Note:
Today's Communication/Plan
-
Continue heparin drip until INR therapeutic 2.5-3.5 range
Assessment / Plan
Assessment / Plan
78-year-old female with past medical history of mechanical mitral valve replacement on chronic anticoagulation warfarin presented with rectal bleeding. Initial INR elevated. She has not had any episodes of hematemasis or hematochezia. Feels
significantly better after getting a good night sleep on Ambien. Wants to go home. Not interested in rehab. HC cream as needed for skin.
# Lower GI bleed with acute on chronic blood loss anemia exacerbated by warfarin (INR 3.5)
Heparin drip d/c 6am this morning. INR today 1.97
Protonix IV switched to PO
Colonoscopy 05/07 found two small polyps, hemorrhoids
Heparin drip bridge to warfarin no bolus in first 24 hrs after colonoscopy (restart bolus protocol today 3pm)
Monitor APTT
trend H&H , INR
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
goal INR for MMV 2.5-3.5
INR is 1.97
Continue heparin drip bridge to warfarin until INR therapeutic 2.5-3.5.
likely discharge once at goal
#SOB with exertion
Patient currently denies any SOB, chest pain or heart palpitations
History of HFpEF
O2 sats good
Continue torsemide per cardio and nephro
So far Metolazone 5mg per her usual home meds has not been needed
No spironolactone needed per cards on d/c
PT/OT recommendations for d/c
#Transaminitis / increased bilirubin
Monitor
GI following
#Hx of VF
stable on Toprol.
# JOJO on CKD stage 3b
Cr today 1.7 jojo resolved
Continue torsemide per cards and nephro
#Hypokalemia
Resolved
Continue torsemide
# hyponatremia
resolved
Monitor BMP
#Chronic HFpEF
-Increase shortness of breath with exertion
-Chest x-ray no pulmonary edema
-Continue torsemide and metolazone as needed
-Hold spironolactone
#Essential hypertension
-BP stable
#Type 2 diabetes
-Hold repaglinide
-Insulin sliding scale
# CAD s/p CABG x 4 2008 - stable without angina.
#Hyperlipidemia -Continue statin
#Gout-Continue allopurinol
#History of subdural hemorrhage
#History of tremors
#Obesity
DNR/DNI
Anticipated Discharge: 24 - 48 hours
Subjective/Interval History
-
Date of Service: May 09, 2024
Patient feels significantly better after getting a full night sleep with antonioien. Not interested in rehab.
Objective Data
-
Labs:
Laboratory Results
05/09/24 05/09/24 05/09/24
00:34 01:05 05:08
WBC 4.5 L
Hgb 10.5 L
Hct 30.3 L
Plt Count 137
PT 22.6 H
INR 1.97
APTT Cancelled 78.7 H 75.9 H
Sodium 135
Potassium 3.6
Chloride 100
Carbon Dioxide 21 L
BUN 63 H
Creatinine 1.7 H
Glucose 119 H
Calcium 8.9
Total Bilirubin 1.8 H
AST 53 H
ALT 22
Alkaline Phosphatase 134 H
05/09/24
12:00
WBC Pending
Hgb Pending
Hct Pending
Plt Count Pending
PT
INR
APTT
Sodium
Potassium
Chloride
Carbon Dioxide
BUN
Creatinine
Glucose
Calcium
Total Bilirubin
AST
ALT
Alkaline Phosphatase
Vital Signs:
Vital Signs
Temp Pulse Resp BP Pulse Ox
97.7 F 100 14 126/84 96
05/09/24 07:19 05/09/24 07:19 05/09/24 07:19 05/09/24 07:19 05/09/24 07:19
I&O
05/08/24 05/09/24 05/10/24
06:59 06:59 06:59
Intake Total 1919 1421 / 1421
Balance 1919 1421 / 1421
Review of Systems
-
History Source: Patient
Constitutional: Reports Fatigue
Respiratory: Reports No Symptoms
Cardiac: Reports No Symptoms
Abdomen/GI: Reports No Symptoms
Genitourinary: Reports No Symptoms
Neuro: Reports No Symptoms
Physical Exam
-
General: No Apparent Distress
Respiratory: Wheezes (Slight expiratory wheezes in L lower lung grissom)
Cardiac: Irregular Rhythm and Murmur
GI: Soft, Nontender and Normal Bowel Sounds
Musculoskeletal: No Edema
Skin: Warm
Neuro: AO x 3
Psych: Calm
[2024-05-09] MEDS: DESENEX/MITRAZOL/ZEASORB 1 APPLIC TOPICAL ×2 (08:41→21:01)
[2024-05-09] MEDS: PROTONIX 40 MG PO ×2 (08:42→21:01)
[2024-05-09] MEDS: COLACE 100 MG PO (08:42)
[2024-05-09] MEDS: THERAGRAN 1 TABLET PO (08:42)
[2024-05-09] MEDS: DEMADEX 40 MG PO (08:43)
[2024-05-09] MEDS: TOPROL XL 25 MG PO ×2 (08:44→21:01)
[2024-05-09] MEDS: METAMUCIL, KONSYL 1 PACKET PO (08:46)
[2024-05-09 10:26] LABS: Haptoglobin <10 mg/dL (30-200)
--- NOTE | 2024-05-09 11:30 | W.PN.CD ---
Today's Communication / Plan
-
-
Cardiology will sign off.
Pt should see Dr. Mcgovern as planned on Sep 18, 2023 at 2:20 as planned.
Please call with questions.
At discharge use current diuretic regimen and no Aldactone for now
Impression / Plan
-
BRBPR
- colonoscopy yesterday, monitor Hgb
- 2 polyps removed. Hemorrhoids noted
Anticoagulation INR goal 2.5-3
- Given [facility] MVR/bioTAVR/AFib/Heart failure => IV Heparin bridge (watch for resumption of bleeding)
- Resume IV heparin only when OK from GI perspective
- now s/p colonoscopy, IV heparin on, INR today 1.9 (again)
JOJO on CKD4.
- Aldactone on hold, anticipate resuming later
HFpEF - chronic.
- High risk situation with CKD4 and cardiorenal syndrome.
- typically dry weight 155lb at home, but the last 2 weeks she reports weight 160-162 lbs.
- Continue torsemide 40mg AM, 20mg PM; SO FAR has not needed her usual metolazone 5mg //;
- Holding Aldactone 25mg daily; KCl 30 mEq AM, 10 mEq PM.
Valvular heart disease
- TAVR 09/2022
- mechanical MVR 2008
- severe TR
Permanent A fib - stable, rate controlled on Toprol XL 25mg bid.
- chronic Coumadin as above.
- HRs elevated overngiht, but agitated and did not sleep all night
- monitor, can increase if needed
VF, pior primary
- Secondary prevention ICD in place
CAD s/p CABG x 4 2008 - stable without angina.
- not on ASA since on Coumadin for A fib/mech MVR, and also had SDH in recent past.
- continue atorvastatin 40mg daily. Last LDL at goal at 59.
CKD
- nephro following
Subjective: No CP or dyspnea
Physical Exam
Vital Signs/Labs
Vital Signs
Temp Pulse Resp BP Pulse Ox
97.7 F 100 14 126/84 96
05/09/24 07:19 05/09/24 08:44 05/09/24 07:19 05/09/24 08:44 05/09/24 07:19
05/08/24 05/09/24 05/10/24
06:59 06:59 06:59
Actual Weight 74.707 kg 73.51 kg
05/09/24 12:00
05/09/24 05:08
PT 22.6 Sec (11.4-14.6) H 05/09/24 05:08
INR 1.97 05/09/24 05:08
APTT 75.9 Sec (23.4-35.0) H 05/09/24 05:08
Magnesium 1.9 mg/dl (1.6-2.3) 05/06/24 18:37
Physical Exam
Constitutional: No acute distress
EENT: Anicteric
Cardiovascular: Pedal edema is absent, Rhythm/rate is irregular and Systolic murmur present
Respiratory: Respiratory effort normal and Lungs clear to auscul.
GI: Soft and Distention absent
Neuro/Psych: Alert
Data Reviewed
-
Date of Service: May 09, 2024
[2024-05-09 13:08] LABS: Glucose - Point of Care 259 mg/dl (70-99)
[2024-05-09] MEDS: NOVOLOG FLEXPEN-LOW RESISTANCE 3 UNITS SC (13:12)
--- NOTE | 2024-05-09 15:10 | CM ---
Case management following for discharge planning
Chart reviewed
Following INR
[facility] to follow when discharged
Plan - anticipate home with [facility] when medically stable
--- NOTE | 2024-05-09 16:19 | W.PN.NEPH.PH ---
Today's Communication / Plan
-
follow lab s
Assessment/Plan
-
Impression:
Bright red blood per rectum
Acute kidney injury
CKD stage IIIb with baseline creatinine 1.7
Atrial fibrillation on chronic anticoagulation
Hypertension
Hyponatremia
Diabetes
Congestive heart failure with preserved EF
Valvular heart disease (hx of mechanical valve replacement)
CAD with history of CABG
ICD
Plan:
JOJO: cr at baseline 1.7
Status post colonoscopy 05/07, 2 small polyps removed moderate internal hemorrhoids
continue diuretics home dose (torsemide),
hemodynamically stable
heparin transition per cards
will follow peripherally
-
-
Date of Service: May 09, 2024
CC / HPI / ROS
-
Chief Complaint:
Chronic kidney disease
History of Present Illness:
Creatinine stable at 1.7, BUN 63
na low 135-normal
k 3.6
Hemodynamically stable
Hemoglobin remains stable
Review of Systems:
Subjectively nonoliguric
No chest pain
insomnia take ambien daily at home
nose stuffy so mouth breathing
Labs
-
Labs:
WBC Cancelled 05/09/24 12:00
RBC Cancelled 05/09/24 12:00
Hgb Cancelled 05/09/24 12:00
Hct Cancelled 05/09/24 12:00
Plt Count Cancelled 05/09/24 12:00
Sodium 135 mmol/L (135-145) 05/09/24 05:08
Potassium 3.6 mmol/L (3.5-5.1) 05/09/24 05:08
Chloride 100 mmol/L (98-107) 05/09/24 05:08
Carbon Dioxide 21 mmol/L (22-30) L 05/09/24 05:08
BUN 63 mg/dl (7-17) H 05/09/24 05:08
Creatinine 1.7 mg/dL (0.6-1.0) H 05/09/24 05:08
eGFR 30.13 05/09/24 05:08
Glucose 119 mg/dl (70-99) H 05/09/24 05:08
Calcium 8.9 mg/dl (8.4-10.2) 05/09/24 05:08
Albumin 3.5 g/dl (3.5-5.0) 05/09/24 05:08
Physical Exam
-
Vital Signs:
Vital Signs
Temp Pulse Resp BP Pulse Ox
97.9 F 106 22 121/67 96
05/09/24 15:30 05/09/24 15:30 05/09/24 15:30 05/09/24 15:30 05/09/24 15:30
Cardiovascular:: Regular rate and rhythm
Respiratory:: Bilateral: CTA
Lung Excursion:: Normal
Abdomen:: Nontender and Soft
Extremity Edema:: None: Bilateral: (trace)
Rockwell Catheter: No
[2024-05-09 16:53] LABS: Glucose - Point of Care 178 mg/dl (70-99)
[2024-05-09] MEDS: NOVOLOG FLEXPEN-LOW RESISTANCE 1 UNITS SC (17:15)
[2024-05-09] MEDS: LIPITOR 40 MG PO (17:41)
[2024-05-09] MEDS: COUMADIN 2.5 MG PO (17:41)
[2024-05-09] MEDS: DEMADEX 20 MG PO (17:41)
[2024-05-09 22:14] LABS: Glucose - Point of Care 145 mg/dl (70-99)
[2024-05-10 03:12] VITALS: BP 127/71
[2024-05-10 06:00] VITALS: BMI 30.6
[2024-05-10 07:15] VITALS: BP 125/75
[2024-05-10 08:21] LABS: Glucose - Point of Care 108 mg/dl (70-99)
[2024-05-10 09:09] LABS: Hematocrit 31.8 % (37.0-47.0); Mean Corp Hgb Conc. 34.6 g/dL (33.0-37.0); Mean Corpuscular Hgb 32.5 pg (27.0-31.0); Mean Corpuscular Volume 94.1 fL (81.0-99.0); Mean Platelet Volume 11.3 fL (7.4-10.4); Platelet Count 150 10^3/uL (130-400); Red Blood Cell Count 3.38 10^6/uL (4.20-5.40); Red Cell Dist. Width 14.6 % (11.5-14.5); White Blood Cell Count 4.4 10^3/uL (4.8-10.8)
[2024-05-10 09:12] LABS: INR 2.03; PT 22.8 Sec (11.4-14.6)
[2024-05-10 09:13] LABS: APTT 58.5 Sec (23.4-35.0)
[2024-05-10] MEDS: NOVOLOG FLEXPEN-LOW RESISTANCE SC (09:32)
[2024-05-10] MEDS: ZYLOPRIM 50 MG PO (09:33)
[2024-05-10] MEDS: DEMADEX 40 MG PO (09:33)
[2024-05-10] MEDS: COLACE 100 MG PO (09:33)
[2024-05-10] MEDS: TOPROL XL 25 MG PO ×2 (09:33→20:45)
[2024-05-10] MEDS: PROTONIX 40 MG PO ×2 (09:33→20:45)
[2024-05-10] MEDS: THERAGRAN 1 TABLET PO (09:34)
[2024-05-10] MEDS: METAMUCIL, KONSYL 1 PACKET PO (09:36)
[2024-05-10] MEDS: DESENEX/MITRAZOL/ZEASORB 1 APPLIC TOPICAL ×2 (09:40→20:45)
[2024-05-10 09:48] LABS: ALT (SGPT) 25 U/L (0-35); AST (SGOT) 65 U/L (14-36); Albumin 3.7 g/dl (3.5-5.0); Alkaline Phosphatase 163 U/L (38-126); Blood Urea Nitrogen 57 mg/dl (7-17); Calcium 8.9 mg/dl (8.4-10.2); Carbon Dioxide 23 mmol/L (22-30); Chloride 98 mmol/L (98-107); Estimated Creatinine Clearance 26 ml/min; Glucose 112 mg/dl (70-99); Potassium 3.5 mmol/L (3.5-5.1); Sodium 134 mmol/L (135-145); Total Bilirubin 1.8 mg/dl (0.2-1.3); Total Protein 6.4 g/dl (6.3-8.2)
[2024-05-10] MEDS: HEPARIN 25000 UNITS/250 ML IV (11:00)
[2024-05-10] MEDS: HEPARIN 5900 UNITS IV (11:16)
[2024-05-10 11:45] LABS: Glucose - Point of Care 220 mg/dl (70-99)
--- NOTE | 2024-05-10 12:33 | PTCARENOTE ---
Patient ambulated to bathroom with walker and assist x1. Patient participated in complete bath this am. Patient has no c/o pain and is presently resting comfortably in chair.
[2024-05-10] MEDS: NOVOLOG FLEXPEN-LOW RESISTANCE 2 UNITS SC (12:49)
--- NOTE | 2024-05-10 15:07 | W.PN.HOSP.TC ---
Today's Communication/Plan
-
INR still subtherapeutic
Continue Heparin Drip
Assessment / Plan
Assessment / Plan
Physical Exam
General: No Apparent Distress
Respiratory: Clear to Auscultation Bilaterally
Cardiac: Irregular Rhythm and Murmur with click
GI: Soft, Nontender and Normal Bowel Sounds
Musculoskeletal: No Edema
Skin: Warm
Neuro: AO x 3
Psych: Calm
Assessment/Plan
78-year-old female with past medical history of mechanical mitral valve replacement on chronic anticoagulation warfarin presented with rectal bleeding. Initial INR elevated. She has not had any episodes of hematemasis or hematochezia. Feels
significantly better after getting a good night sleep on Ambien. Wants to go home. Not interested in rehab. HC cream as needed for skin.
# Lower GI bleed with acute on chronic blood loss anemia exacerbated by warfarin (INR 3.5)
# Internal Hemorrhoids
Heparin drip d/c 6am this morning. INR today 2.03
Protonix PO
Colonoscopy 05/07-2 small polyps transverse, sigmoid colon removed w cold forceps
Moderate internal hemorrhoid
Continue hydrocort NE
Heparin drip bridge to warfarin previously started, monitor aptt, no bolus
Monitor APTT
trend H&H , INR
# Chronic anticoagulation - mechanical MVR ( TAVR 09/2022 and mechanical MVR 2008 ), permanent Atrial Fibrillation.
Goal INR for MMV 2.5-3.5, specifically goal INR is 3.0
INR is 1.97
Continue heparin drip bridge to warfarin until INR therapeutic 2.5-3.5.
Once INR is 2.5, as per conversation (on May 10, 2024) via [place] Text with Dr. Williamson, can stop Heparin Drip
#SOB with exertion
Patient currently denies any SOB, chest pain or heart palpitations
History of HFpEF
O2 sats good
Continue torsemide per cardio and nephro
So far Metolazone 5mg per her usual home meds has not been needed
No spironolactone needed per cards on d/c
PT/OT recommendations for d/c
#Transaminitis / increased bilirubin
Monitor
GI following
#Hx of VF
stable on Toprol.
# JOJO on CKD stage 3b
Cr today 1.7 jojo resolved
Continue torsemide per cards and nephro
#Hypokalemia
Resolved
Continue torsemide
# hyponatremia from SIADH
resolved
PO Fluid Restriction
Monitor BMP
#Chronic HFpEF
-Increase shortness of breath with exertion
-Chest x-ray no pulmonary edema
-Continue torsemide
-Hold spironolactone and hold metolazone
#Essential hypertension
-BP stable
#Type 2 Diabetes Melliuts
-Hold repaglinide
-Insulin sliding scale
#CAD s/p CABG x 4 2008 - stable without angina.
#Hyperlipidemia -Continue statin
#Gout-Continue allopurinol
#History of subdural hemorrhage
#History of tremors
#Obesity
#Insomnia
Code Status: DNR/DNI
Anticipated Discharge: 24 - 48 hours
Subjective/Interval History
-
Date of Service: May 10, 2024
Patient was seen and examined. She denied any chest pain, shortness of breath or any other complaints.
Objective Data
-
Labs:
Laboratory Results
05/10/24 05/10/24
08:04 16:00
WBC 4.4 L
Hgb 11.0 L
Hct 31.8 L
Plt Count 150
PT 22.8 H
INR 2.03
APTT 58.5 H Pending
Sodium 134 L
Potassium 3.5
Chloride 98
Carbon Dioxide 23
BUN 57 H
Creatinine 1.6 H
Glucose 112 H
Calcium 8.9
Total Bilirubin 1.8 H
AST 65 H
ALT 25
Alkaline Phosphatase 163 H
Vital Signs:
Vital Signs
Temp Pulse Resp BP Pulse Ox
98.6 F 110 18 125/75 97
05/10/24 07:15 05/10/24 07:15 05/10/24 07:15 05/10/24 07:15 05/10/24 07:15
I&O
05/09/24 05/10/24 05/11/24
06:59 06:59 06:59
Intake Total 1421 / 1421 1200 / 1200
Output Total 800 / 800
Balance 1421 / 1421 400 / 400
[2024-05-10 15:10] VITALS: BP 129/59
[2024-05-10 16:44] LABS: Glucose - Point of Care 177 mg/dl (70-99)
[2024-05-10] MEDS: NOVOLOG FLEXPEN-LOW RESISTANCE 1 UNITS SC (17:49)
[2024-05-10] MEDS: COUMADIN 2.5 MG PO (17:50)
[2024-05-10] MEDS: DEMADEX 20 MG PO (17:51)
[2024-05-10] MEDS: LIPITOR 40 MG PO (17:51)
[2024-05-10 19:02] LABS: APTT > 200.0 Sec (23.4-35.0)
[2024-05-10] MEDS: AMBIEN 5 MG PO (21:45)
[2024-05-10 21:54] LABS: Glucose - Point of Care 142 mg/dl (70-99)
[2024-05-10 23:21] VITALS: BP 132/70
[2024-05-11 03:26] LABS: APTT 93.4 Sec (23.4-35.0)
[2024-05-11 06:00] VITALS: BMI 30.5
[2024-05-11 07:25] LABS: Glucose - Point of Care 132 mg/dl (70-99)
[2024-05-11 07:40] VITALS: BP 127/75
[2024-05-11] MEDS: TOPROL XL 25 MG PO ×2 (08:14→20:32)
[2024-05-11] MEDS: NOVOLOG FLEXPEN-LOW RESISTANCE SC (08:14)
[2024-05-11] MEDS: COLACE 100 MG PO (08:15)
[2024-05-11] MEDS: PROTONIX 40 MG PO ×2 (08:15→20:31)
[2024-05-11] MEDS: DEMADEX 40 MG PO (08:16)
[2024-05-11] MEDS: METAMUCIL, KONSYL 1 PACKET PO (08:16)
[2024-05-11] MEDS: DESENEX/MITRAZOL/ZEASORB 1 APPLIC TOPICAL ×2 (08:16→20:31)
[2024-05-11] MEDS: THERAGRAN 1 TABLET PO (08:17)
[2024-05-11 09:22] LABS: APTT 95.9 Sec (23.4-35.0)
[2024-05-11 11:40] LABS: Glucose - Point of Care 191 mg/dl (70-99)
[2024-05-11 12:56] LABS: Hematocrit 30.3 % (37.0-47.0); Hemoglobin 10.7 g/dL (12.0-16.0); Mean Corp Hgb Conc. 35.3 g/dL (33.0-37.0); Mean Corpuscular Hgb 32.8 pg (27.0-31.0); Mean Corpuscular Volume 92.9 fL (81.0-99.0); Mean Platelet Volume 10.8 fL (7.4-10.4); Platelet Count 152 10^3/uL (130-400); Red Blood Cell Count 3.26 10^6/uL (4.20-5.40); Red Cell Dist. Width 14.7 % (11.5-14.5); White Blood Cell Count 4.5 10^3/uL (4.8-10.8)
[2024-05-11] MEDS: NOVOLOG FLEXPEN-LOW RESISTANCE 1 UNITS SC (13:04)
[2024-05-11 13:08] LABS: PT 26.9 Sec (11.4-14.6)
--- NOTE | 2024-05-11 13:47 | CM ---
Reviewed the chart notes. Patient for discharge to home today.
Plan: Discharge to home with Christiano [facility].
.
[2024-05-11 13:50] LABS: ALT (SGPT) 26 U/L (0-35); AST (SGOT) 61 U/L (14-36); Albumin 3.6 g/dl (3.5-5.0); Alkaline Phosphatase 152 U/L (38-126); Blood Urea Nitrogen 59 mg/dl (7-17); Carbon Dioxide 22 mmol/L (22-30); Chloride 96 mmol/L (98-107); Estimated Creatinine Clearance 26 ml/min; Glucose 205 mg/dl (70-99); Magnesium 1.8 mg/dl (1.6-2.3); Potassium 3.3 mmol/L (3.5-5.1); Sodium 130 mmol/L (135-145); Total Bilirubin 1.6 mg/dl (0.2-1.3); Total Protein 6.2 g/dl (6.3-8.2)
[2024-05-11 14:50] VITALS: BP 140/81
--- NOTE | 2024-05-11 16:20 | W.PN.HOSP.TC ---
Today's Communication/Plan
-
Okay to stop Heparin Drip. Continue Coumadin.
Spoke with and patient, they requested discharge tomorrow
Hypokalemia - resume patient's home potassium
Assessment / Plan
Assessment / Plan
Physical Exam
General: No Apparent Distress
Respiratory: Clear to Auscultation Bilaterally
Cardiac: Irregular Rhythm and Murmur with click
GI: Soft, Nontender and Normal Bowel Sounds
Musculoskeletal: No Edema
Skin: Warm
Neuro: AO x 3
Psych: Calm
Assessment/Plan
78-year-old female with past medical history of mechanical mitral valve replacement on chronic anticoagulation warfarin presented with rectal bleeding. Initial INR elevated. She has not had any episodes of hematemasis or hematochezia. Feels
significantly better after getting a good night sleep on Ambien. Wants to go home. Not interested in rehab. HC cream as needed for skin.
# Lower GI bleed with acute on chronic blood loss anemia exacerbated by warfarin (INR 3.5)
# Internal Hemorrhoids
Heparin drip d/c 6am this morning. INR today 2.5
Protonix PO
Colonoscopy 05/07-2 small polyps transverse, sigmoid colon removed w cold forceps
Moderate internal hemorrhoid
Continue hydrocort MT
Okay to stop Heparin Drip as per cardiology (since INR 2.5)
trend H&H , INR
# Chronic anticoagulation - mechanical MVR ( TAVR 09/2022 and mechanical MVR 2008 ), permanent Atrial Fibrillation.
Goal INR for MMV 2.5-3.5, specifically goal INR is 3.0
INR is 1.97
Okay to stop Heparin Drip as INR is 2.5 -- confirmed this with company [employer] Dr. Williamson today
#Hypokalemia on 05/11/24
-Resumed home PO potassium
-Mag 1.8
#SOB with exertion
Patient currently denies any SOB, chest pain or heart palpitations
History of HFpEF
O2 sats good
Continue torsemide per cardio and nephro
So far Metolazone 5mg per her usual home meds has not been needed
No spironolactone needed per cards on d/c
PT/OT recommendations for d/c
#Transaminitis- STABLE / increased bilirubin - STABLE
Monitor
GI following
#Hx of VF
stable on Toprol.
# JOJO on CKD stage 3b
Cr today 1.7 jojo resolved
Continue torsemide per cards and nephro
# hyponatremia from SIADH
resolved
PO Fluid Restriction
Monitor BMP
#Chronic HFpEF
-Increase shortness of breath with exertion
-Chest x-ray no pulmonary edema
-Continue torsemide
-Hold spironolactone and hold metolazone
#Essential hypertension
-BP stable
#Type 2 Diabetes Melliuts
-Hold repaglinide
-Insulin sliding scale
#CAD s/p CABG x 4 2008 - stable without angina.
#Hyperlipidemia -Continue statin
#Gout-Continue allopurinol
#History of subdural hemorrhage
#History of tremors
#Obesity
#Insomnia
Code Status: DNR/DNI
I spoke with patient and her today, and they requested discharge tomorrow.
Anticipated Discharge: Within 24 hours
Subjective/Interval History
-
Date of Service: May 11, 2024
Patient was seen and examined. She denied any chest pain, shortness of breath, or any other complaints.
Objective Data
-
Labs:
Laboratory Results
05/11/24 05/11/24
08:56 12:46
WBC 4.5 L
Hgb 10.7 L
Hct 30.3 L
Plt Count 152
PT 26.9 H
INR 2.50
APTT 95.9 H
Sodium 130 L
Potassium 3.3 L
Chloride 96 L
Carbon Dioxide 22
BUN 59 H
Creatinine 1.6 H
Glucose 205 H
Calcium 9.0
Total Bilirubin 1.6 H
AST 61 H
ALT 26
Alkaline Phosphatase 152 H
Vital Signs:
Vital Signs
Temp Pulse Resp BP Pulse Ox
97.8 F 84 18 140/81 98
05/11/24 14:50 05/11/24 14:50 05/11/24 14:50 05/11/24 14:50 05/11/24 14:50
I&O
05/10/24 05/11/24 05/12/24
06:59 06:59 06:59
Intake Total 1200 / 1200 1236 / 1236
Output Total 800 / 800
Balance 400 / 400 1236 / 1236
[2024-05-11 16:42] LABS: Glucose - Point of Care 215 mg/dl (70-99)
[2024-05-11] MEDS: NOVOLOG FLEXPEN-LOW RESISTANCE 2 UNITS SC (17:25)
[2024-05-11] MEDS: KCL 10 MEQ PO (17:26)
[2024-05-11] MEDS: KCL 30 MEQ PO (17:27)
[2024-05-11] MEDS: COUMADIN 2.5 MG PO (17:27)
[2024-05-11] MEDS: DEMADEX 20 MG PO (17:27)
[2024-05-11] MEDS: LIPITOR 40 MG PO (17:30)
[2024-05-11] MEDS: TYLENOL 1000 MG PO (17:30)
[2024-05-11 20:52] LABS: Blood Urea Nitrogen 58 mg/dl (7-17); Calcium 8.9 mg/dl (8.4-10.2); Carbon Dioxide 20 mmol/L (22-30); Chloride 97 mmol/L (98-107); Estimated Creatinine Clearance 26 ml/min; Glucose 149 mg/dl (70-99); Potassium 3.3 mmol/L (3.5-5.1); Sodium 132 mmol/L (135-145)
[2024-05-11] MEDS: AMBIEN 5 MG PO (21:48)
[2024-05-11 22:29] LABS: Glucose - Point of Care 113 mg/dl (70-99)
[2024-05-11 23:30] VITALS: BP 116/72
[2024-05-12 06:16] VITALS: BMI 31.1
[2024-05-12 06:54] LABS: Hematocrit 34.1 % (37.0-47.0); Hemoglobin 11.7 g/dL (12.0-16.0); Mean Corp Hgb Conc. 34.3 g/dL (33.0-37.0); Mean Corpuscular Hgb 32.1 pg (27.0-31.0); Mean Corpuscular Volume 93.7 fL (81.0-99.0); Platelet Count 162 10^3/uL (130-400); Red Blood Cell Count 3.64 10^6/uL (4.20-5.40); Red Cell Dist. Width 14.6 % (11.5-14.5); White Blood Cell Count 4.2 10^3/uL (4.8-10.8)
[2024-05-12 07:02] LABS: INR 2.61; PT 27.8 Sec (11.4-14.6)
[2024-05-12 07:15] VITALS: BP 135/75
[2024-05-12 07:54] LABS: Glucose - Point of Care 136 mg/dl (70-99)
[2024-05-12 07:57] LABS: Blood Urea Nitrogen 59 mg/dl (7-17); Calcium 9.2 mg/dl (8.4-10.2); Carbon Dioxide 21 mmol/L (22-30); Chloride 98 mmol/L (98-107); Estimated Creatinine Clearance 24 ml/min; Glucose 114 mg/dl (70-99); Potassium 4.3 mmol/L (3.5-5.1); Sodium 135 mmol/L (135-145); eGFR 30.13
[2024-05-12] MEDS: NOVOLOG FLEXPEN-LOW RESISTANCE SC (08:06)
[2024-05-12] MEDS: DESENEX/MITRAZOL/ZEASORB 1 APPLIC TOPICAL (08:12)
[2024-05-12] MEDS: ZYLOPRIM 50 MG PO (08:13)
[2024-05-12] MEDS: PROTONIX 40 MG PO (08:13)
[2024-05-12] MEDS: THERAGRAN 1 TABLET PO (08:13)
[2024-05-12] MEDS: TOPROL XL 25 MG PO (08:13)
[2024-05-12] MEDS: COLACE 100 MG PO (08:13)
[2024-05-12] MEDS: KCL 30 MEQ PO (08:13)
[2024-05-12] MEDS: DEMADEX 40 MG PO (08:13)
[2024-05-12] MEDS: METAMUCIL, KONSYL 1 PACKET PO (08:14)
--- NOTE | 2024-05-12 09:37 | W.PN.HOSP.TC ---
Addendum entered and electronically signed by Fermin Lemon MD 05/12/24 23:52:
Attending Addendum-
I saw and evaluated the patient. I reviewed the resident�s note and agree with findings and plan as documented in the resident�s note. Sub: No further BRBPR. seen with . 'I got everything for her at home no need for her to go to rehab' Full
12 point ROS reviewed and negative except as documented Exam: Vitals reviewed in chart GEN-NAD heart irreg irreg crisp click heard @ apex Lungs CTA B/L abd soft LE no edema AAO x 2
# Lower GI bleed/ acute on chronic blood loss anemia exacerbated by Coumadin
- NO active bleeding noted
- cont PO Protonix
- colonoscopy 05/07-2 small polyps transverse, sigmoid colon removed w cold forceps
Moderate internal hemorrhoid
- cont hep gtt bridge monitor APTT no bolus
- cont hydrocort [place]
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
- ther INR is 2.5-3.5
- cont coumadin
- current INR 2.6
- heparin dc'd for INR > 2.5
- cards-signed off
# CAD s/p CABG x 4 2008 - stable without angina.
#Hx of VF
-stable on Toprol.
# JOJO on CKD stage 3B
- Creatinine @ 1.5-1.7 baseline
- now at baseline resolved
# Hypokalemia
-replete prn
-potassium supplement restart on DC
-spironolactone and metolazone dc'd not to restart on DC
-Continue torsemide
-Nephrology input appreciated
# Hyponatremia from SIADH
- resolved
- fluid restrict
- repeat BMP in am
#Chronic HFpEF
-Appears well compensated and not in acute heart failure
-Continue torsemide
-Hold metolazone, DC spironolactone
# Essential hypertension
# Type 2 diabetes
-Hold repaglinide restart on DC
-Insulin sliding scale
# Hyperlipidemia
-Continue statin
# Gout
-Continue allopurinol
# History of subdural hemorrhage
# insomnia
- cont ambien q hs takes chronically not prn
DNR/DNI
Dispo- DC home with VN - today and patient refusing SNF
Time spent coordinating care, DC planning, review of DC plan of care with resident, transition of care, review of records, med rec/scripts sent electronically, consults, notes, d/w consultants, nursing, family/, and CM� 36 mins
Original Note:
Today's Communication/Plan
-
Discharge home (as INR therapeutic 2.61) despite strong recommendations for skilled rehab
Assessment / Plan
Assessment / Plan
# Lower GI bleed with acute on chronic blood loss anemia exacerbated by warfarin (INR 3.5)
#Internal hemorrhoids found via colonoscopy
Heparin drip d/c 05/11 once INR 2.5
Today INR 2.61
PO protonix
Monitor APTT
trend H&H , INR
Okay to discharge now that INR is therapeutic
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
goal INR for MMV 2.5-3.5
INR is 2.61
Discharge
Patient adamant to go home despite PT recommending skilled rehab
#SOB with exertion
Patient currently denies any SOB, chest pain or heart palpitations
History of HFpEF
O2 sats good
Continue torsemide per cardio and nephro
So far Metolazone 5mg per her usual home meds has not been needed
No spironolactone needed per cards on d/c
Discharge on current diuretics per cards (metolazone as needed and hold spironolactone)
Restart sodium tabs
#Transaminitis / increased bilirubin
Monitor
GI following
#Hx of VF
stable on Toprol.
# JOJO on CKD stage 3b
Cr today 1.7 jojo resolved
Continue torsemide per cards and nephro
#Hypokalemia
Resolved
Continue torsemide
# hyponatremia
resolved
Monitor BMP
#Chronic HFpEF
-Increase shortness of breath with exertion
-Chest x-ray no pulmonary edema
-Continue torsemide and metolazone as needed
-Hold spironolactone
#Essential hypertension
-BP stable
#Type 2 diabetes
-Hold repaglinide
-Insulin sliding scale
# CAD s/p CABG x 4 2008 - stable without angina.
#Hyperlipidemia -Continue statin
#Gout-Continue allopurinol
#History of subdural hemorrhage
#History of tremors
#Obesity
DNR/DNI
Anticipated Discharge: Today
Subjective/Interval History
-
Date of Service: May 12, 2024
Very fatigued, and ready to go home
Objective Data
-
Labs:
Laboratory Results
05/12/24
05:02
WBC 4.2 L
Hgb 11.7 L
Hct 34.1 L
Plt Count 162
PT 27.8 H
INR 2.61
Sodium 135
Potassium 4.3 D
Chloride 98
Carbon Dioxide 21 L
BUN 59 H
Creatinine 1.7 H
Glucose 114 H
Calcium 9.2
Vital Signs:
Vital Signs
Temp Pulse Resp BP Pulse Ox
97.8 F 98 18 135/75 96
05/12/24 07:15 05/12/24 08:13 05/12/24 07:15 05/12/24 08:13 05/12/24 07:15
I&O
05/11/24 05/12/24 05/13/24
06:59 06:59 06:59
Intake Total 1236 / 1236 2640 / 2640
Balance 1236 / 1236 2640 / 2640
Review of Systems
-
History Source: Patient
Constitutional: Reports Fatigue
Respiratory: Reports No Symptoms
Cardiac: Reports No Symptoms
Abdomen/GI: Reports No Symptoms
Musculoskeletal: Reports No Symptoms
Neuro: Reports No Symptoms
Physical Exam
-
General: No Apparent Distress
HEENT: Normocephalic
Respiratory: Clear to Auscultation
Cardiac: Irregular Rhythm and Murmur
GI: Soft and Nontender
Musculoskeletal: No Edema
Skin: Warm
Neuro: AO x 3
Psych: Calm
[2024-05-12] MEDS: LIDOCAINE 4% PATCH 1 PATCH TOPICAL (10:31)
[2024-05-12] MEDS: NOVOLOG FLEXPEN-LOW RESISTANCE 2 UNITS SC (11:52)
[2024-05-12 11:53] LABS: Glucose - Point of Care 244 mg/dl (70-99)
[2024-05-12 12:17] VITALS: BP 134/74; PULSE 81
--- NOTE | 2024-05-12 12:29 | CM ---
Case management following for discharge planning
Chart reviewed. Met with pt and her at bedside
Pt for poss d/c today
will transport home
[facility] to follow
Discussed IMM
Plan - home with Christiano
f - [phone]
[2024-05-12 15:25] VITALS: BP 129/59
--- NOTE | 2024-05-12 16:26 | W.DCSUMMARY ---
Addendum entered and electronically signed by Fermin Lemon MD 05/12/24 23:54:
Read, reviewed, and agree. See same day progress note for additional details.
Alex Lemon MD
Original Note:
Documented by User: Jane Junior MD, Resident 05/12/24 17:06
Discharge Summary
Discharge Data
Date of Admission: 05/01/24
Date of Discharge: 05/12/24
-
Pending Results: Yes
Additional Pending Results:
Pathology report 2 polyps
Hospital Course
Primary diagnosis:
Lower gastrointestinal bleeds with acute on chronic blood loss anemia exacerbated by Coumadin
Internal hemorrhoids
Chronic anticoagulation
Secondary diagnoses:
CAD status post CABG times 10/2008
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
JOJO on CKD stage IIIb
Hypokalemia
Hyponatremia from SIADH
Chronic HFpEF
Essential hypertension
Type 2 diabetes
Hyperlipidemia
Gout
Insomnia
History of subdural hemorrhage
Hospital course:
Pleasant 78-year-old female with past medical history of chronic HFpEF, mechanical mitral valve on Coumadin, TAVR, ventricular fibrillation status post ICD, CAD post CABG, chronic right bundle branch block, permanent A-fib, CKD 4, hypertension,
hyperlipidemia, type 2 diabetes, gout, tremors, subdural hemorrhage, obesity presenting with rectal bleeding to the ED on 05/01/2024. She sat down on her chair lift to go upstairs and felt a medina of blood and liquid from her rectal area. Her son
contacted EMS. In the ED her INR was 3.54 with goal INR of 2.5-3.5 with her mechanical mitral valve. Hemoglobin of 11.3 from previously 12.2 on 08/25/2023. Creatinine 2.3, bun 93, potassium 5.2, sodium 134. Patient was admitted for acute GI bleed
and JOJO on CKD stage IV. GI, cardiology and nephrology were consulted. Coumadin was held. Nephrology suspected acute kidney injury secondary to the increased renal symptoms from the GI bleed. Creatinine is not far from baseline around 1.5-1.7.
Nephrotoxic diuretics were held including spironolactone and metolazone. Cardiology changed torsemide to 40 mg in the a.m., 20 mg p.m. the next day, her sodium was 137, potassium 4.2, creatinine 2.1, INR 3.5. Coumadin continued to be held. Gastro
recommended INR less than 1.5 for colonoscopy. Heparin drip recommended to start once INR is less than 2.5. On 05/05, INR was 2.2. Heparin drip was started. On 05/06 creatinine 1.6. JOJO resolved. On 05/06/2024, potassium replaced as it was
2.9. GI prep for colonoscopy began later that day. On 05/07/2024, colonoscopy was performed and found 2 polyps and internal hemorrhoids along the sigmoid colon. After procedure, patient restarted on heparin drip per cardiology and GI
recommendation. Patient was held in the hospital on a heparin drip on her nightly 2.5 mg warfarin dose until INR went back to therapeutic ranges. Of note, patient needed Ambien many nights to sleep.
Today, patient's vitals were stable and INR is 2.61. PT OT recommended skilled rehab, however patient wanted on going home as her and her believe they have adequate in home environment to manage her care. Patient was discharged continuing
torsemide 40 mg in the a.m., 20 mg in the p.m and restart her sodium tablets. She has a follow-up with cardiology on 09-17-2024 with recommendations to follow-up her PCP within less than a week.
Discharge Plan
-
Patient Disposition: Home (Routine Discharge)
Discharge Diagnosis/Procedures: Lower gastrointestinal bleed with acute on chronic blood loss anemia exacerbated by warfarin, internal hemorrhoids, chronic anticoagulation, hypokalemia,
Condition: Fair
Diet: 2 Gram Sodium
Activity: As tolerated
Driving Restrictions: As prior to admission
Bathing Restrictions: None
Other Services: VN, PT and OT
Referrals:
Milton Mcgovern MD [Active] - 09/17/24 2:20 pm
Pastor Kolb MD [Family Provider] - in less than 1 week
Additional Discharge Medication Instructions: Torsemide 40mg in the morning and 20mg each night
Repeat INR in less than a week
Prescriptions:
New
warfarin [Jantoven] 2.5 mg Tablet
2.5 mg PO QPM 30 Days Qty: 30 0RF
hydrocortisone 1 % cream
1 applic topical BIDPRN PRN (Reason: Dry skin) 30 Days Qty: 2 0RF
lidocaine 4 % Adhesive Patch,Medicated
1 patch topical DAILY 30 Days Qty: 5 0RF
pantoprazole 40 mg Tablet,Delayed Release (Dr/Ec)
40 mg PO BID 30 Days Qty: 60 0RF
Continued
atorvastatin 40 MG tablet
40 mg PO QPM
levalbuterol HCl 0.63 mg/3 mL solution for nebulization
0.63 mg INHALATION R Q8HPRN PRN (Reason: sob/wheezing)
allopurinol 100 mg Tablet
50 mg PO Q48H Qty: 30 0RF
ferrous sulfate 325 mg (65 mg iron) Tablet
325 mg PO DAILY
docusate sodium [Colace] 100 mg Capsule
100 mg PO DAILY
omega 9-oab-aye-fish oil [Fish Oil] 1,000 (120-180) mg Capsule
1 cap PO DAILY
potassium chloride 10 mEq Capsule, Extended Release
10 meq PO QPM 30 Days Qty: 30 0RF
torsemide 20 mg Tablet
20 mg PO QPM 30 Days Qty: 30 0RF
therapeutic multivitamin Tablet
1 tab PO DAILY 30 Days Qty: 30 0RF
acetaminophen [Tylenol Extra Strength] 500 mg Tablet
1,000 mg PO Q8HPRN PRN (Reason: mild pain) 30 Days Qty: 30 0RF
repaglinide 0.5 MG tablet
0.5 mg PO AC 30 Days Qty: 30 0RF
Patient Comments:
nitroglycerin 0.4 mg Tablet, Sublingual
0.4 mg SUBLINGUAL [id number] PRN (Reason: chest pain) 30 Days Qty: 20 0RF
zolpidem 5 mg Tablet
5 mg PO HSPRN PRN (Reason: sleep) 30 Days Qty: 15 0RF
metoprolol succinate 25 mg Tablet Extended Release 24 Hr
25 mg PO BID 30 Days Qty: 60 0RF
senna 8.6 mg Capsule
8.6 mg PO DAILYPRN PRN (Reason: constipation) 30 Days Qty: 30 0RF
psyllium husk 0.4 gram Capsule
0.4 g PO DAILY 30 Days Qty: 30 0RF
Changed
torsemide 20 mg tablet
40 mg PO DAILY 30 Days Qty: 60 0RF
Discontinued
warfarin 2.5 mg Tablet
2.5 mg PO QPM
metolazone 5 mg Tablet
5 mg PO MOWEFR Qty: 0 0RF
spironolactone 25 mg Tablet
25 mg PO DAILY Qty: 0 0RF
potassium chloride 10 mEq Capsule, Extended Release
30 meq PO DAILY
Discharge Orders:
Discharge Patient (As Directed); Ordered 05/12/24
Ordered By: Jane Junior
Discharge Date and Time
Discharge Date/Time: 05/12/24 17:30
Print Language: FIJIAN

Documented by User: Fermin Lemon MD 05/12/24 23:49
Discharge Summary
Discharge Data
Date of Admission: 05/01/24
Date of Discharge: 05/12/24
Discharge Plan
-
Patient Disposition: Home (Routine Discharge)
Discharge Diagnosis/Procedures: Lower gastrointestinal bleed with acute on chronic blood loss anemia exacerbated by warfarin, internal hemorrhoids, chronic anticoagulation, hypokalemia,
Condition: Fair
Diet: 2 Gram Sodium
Activity: As tolerated
Driving Restrictions: As prior to admission
Bathing Restrictions: None
Other Services: VN, PT and OT
Referrals:
Milton Mcgovern MD [Active] - 09/17/24 2:20 pm
Pastor Kolb MD [Family Provider] - in less than 1 week
Additional Discharge Medication Instructions: Torsemide 40mg in the morning and 20mg each night
Repeat INR in less than a week
Prescriptions:
New
warfarin [Jantoven] 2.5 mg Tablet
2.5 mg PO QPM 30 Days Qty: 30 0RF
hydrocortisone 1 % cream
1 applic topical BIDPRN PRN (Reason: Dry skin) 30 Days Qty: 2 0RF
lidocaine 4 % Adhesive Patch,Medicated
1 patch topical DAILY 30 Days Qty: 5 0RF
pantoprazole 40 mg Tablet,Delayed Release (Dr/Ec)
40 mg PO BID 30 Days Qty: 60 0RF
Continued
atorvastatin 40 MG tablet
40 mg PO QPM
levalbuterol HCl 0.63 mg/3 mL solution for nebulization
0.63 mg INHALATION R Q8HPRN PRN (Reason: sob/wheezing)
allopurinol 100 mg Tablet
50 mg PO Q48H Qty: 30 0RF
ferrous sulfate 325 mg (65 mg iron) Tablet
325 mg PO DAILY
docusate sodium [Colace] 100 mg Capsule
100 mg PO DAILY
omega 7-vgk-wmx-fish oil [Fish Oil] 1,000 (120-180) mg Capsule
1 cap PO DAILY
potassium chloride 10 mEq Capsule, Extended Release
10 meq PO QPM 30 Days Qty: 30 0RF
torsemide 20 mg Tablet
20 mg PO QPM 30 Days Qty: 30 0RF
therapeutic multivitamin Tablet
1 tab PO DAILY 30 Days Qty: 30 0RF
acetaminophen [Tylenol Extra Strength] 500 mg Tablet
1,000 mg PO Q8HPRN PRN (Reason: mild pain) 30 Days Qty: 30 0RF
repaglinide 0.5 MG tablet
0.5 mg PO AC 30 Days Qty: 30 0RF
Patient Comments:
nitroglycerin 0.4 mg Tablet, Sublingual
0.4 mg SUBLINGUAL [id number] PRN (Reason: chest pain) 30 Days Qty: 20 0RF
zolpidem 5 mg Tablet
5 mg PO HSPRN PRN (Reason: sleep) 30 Days Qty: 15 0RF
metoprolol succinate 25 mg Tablet Extended Release 24 Hr
25 mg PO BID 30 Days Qty: 60 0RF
senna 8.6 mg Capsule
8.6 mg PO DAILYPRN PRN (Reason: constipation) 30 Days Qty: 30 0RF
psyllium husk 0.4 gram Capsule
0.4 g PO DAILY 30 Days Qty: 30 0RF
Changed
torsemide 20 mg tablet
40 mg PO DAILY 30 Days Qty: 60 0RF
Discontinued
warfarin 2.5 mg Tablet
2.5 mg PO QPM
metolazone 5 mg Tablet
5 mg PO MOWEFR Qty: 0 0RF
spironolactone 25 mg Tablet
25 mg PO DAILY Qty: 0 0RF
potassium chloride 10 mEq Capsule, Extended Release
30 meq PO DAILY
Discharge Orders:
Discharge Patient (As Directed); Ordered 05/12/24
Ordered By: Jane Junior
Discharge Date and Time
Discharge Date/Time: 05/12/24 17:30
Print Language: FIJIAN
== END 2024-05-12 17:30 | disposition home or self-care (01) | DRG 394 ==
LOC: 2 SOUTH 22:07
PROVIDERS: Hospitalist; Internal Medicine; Nurse Practitioner Adult Health; Nurse Practitioner Gerontology; Specialist; ADMITTING PHYSICIAN Hospitalist; ATTENDING PHYSICIAN Family Medicine; CONSULT PHYSICIAN Internal Medicine; EMERGENCY PHYSICIAN Emergency Medicine; FAMILY PHYSICIAN Family Medicine; OTHER PHYSICIAN Internal Medicine; OTHER PHYSICIAN Specialist
PROC: 0DBL8ZX Excision of Transverse Colon, Via Natural or Artificial Opening Endoscopic, Diagnostic (ICD-10-PCS; 2024-05-07)
PROC: 0DBN8ZX Excision of Sigmoid Colon, Via Natural or Artificial Opening Endoscopic, Diagnostic (ICD-10-PCS; 2024-05-07)
DX: K64.8 Other hemorrhoids (principal); D62 Acute posthemorrhagic anemia; K92.2 Gastrointestinal hemorrhage, unspecified; I13.0 Hypertensive heart and chronic kidney disease with heart failure and stage 1 through stage 4 chronic kidney disease, or unspecified chronic kidney disease; I50.32 Chronic diastolic (congestive) heart failure; N17.9 Acute kidney failure, unspecified; I48.21 Permanent atrial fibrillation; N18.4 Chronic kidney disease, stage 4 (severe); E22.2 Syndrome of inappropriate secretion of antidiuretic hormone; E87.5 Hyperkalemia; Z95.2 Presence of prosthetic heart valve; Z79.01 Long term (current) use of anticoagulants; E11.22 Type 2 diabetes mellitus with diabetic chronic kidney disease; M10.9 Gout, unspecified; E66.9 Obesity, unspecified; Z66 Do not resuscitate; Z68.31 Body mass index [BMI] 31.0-31.9, adult; I25.10 Atherosclerotic heart disease of native coronary artery without angina pectoris; E87.6 Hypokalemia; E78.00 Pure hypercholesterolemia, unspecified
CPT/HCPCS: 88305; 71046; 80048; 80053; 80076; 82962; 83010; 83036; 83735; 85025; 85027; 85610; 85730; 86850; 86900; 86901; 93005; 97116; 97162; 97166; 97530; 97535; 99285

== ENCOUNTER 2024-05-23 03:15 | Inpatient (IN) | payer MEDICARE, OTHER, SELFPAY ==
[2024-05-23] VITALS (13 sets, daily range): BP systolic 105–146; BP diastolic 68–100; PULSE 90–101; O2SAT 97–98; BMI 29.5
--- NOTE | 2024-05-23 00:25 | ED.GENMED ---
History of Present Illness
General
Chief Complaint: Rectal Bleeding
Source: patient and other (Nursing)
Exam Limitations: none
Time Seen by Provider: 05/23/24 00:11
History of Present Illness
History of Present Illness:
This is a 78 year old female that comes in with c/o rectal bleeding. Told that patient was here 2 weeks ago with GI bleeding and had a Colonoscopy. State that she is on Coumadin and tonight her INR was 8. States that she was told to hold her
Coumadin last night. Then tonight she went to the [facility] and there was what she thought some bright red blood. Patient states that her thought it was dark. Denies any fever, chills, chest pain, SOB, abd pain, nausea, vomiting, diarrhea,
headache, dizziness, urinary burning.
Past History
Past History
ED Past Medical History: Arrthythmia ( out of hospital cardiac arrest, ventricular fibrillation, PVCs, permanent atrial fibrillation,), CAD, CHF, HTN, Hypercholesterolemia, NIDDM, Valvular disease and Other (Pneumonia, GIB, Chronic cough, Anal
fissures. )
ED Past Surgical History: Cardiac (Pacer/Defib, Mitral valve replaced,. CABG X 4, TAVR), Cholecystectomy and Other (cataracts)
Social History
Tobacco: Non-smoker
Alcohol: None
Drug: None
Personal:
Living: with family
Employment: Retired
Family History
Family History: Other (Noncontributory)
Review of Systems
Review of Systems
All Other Systems: ROS reviewed and negative except as documented in HPI and ROS
Constitutional: Reports no symptoms; Denies fever or chills
EENT: Reports no symptoms
Respiratory: Reports no symptoms; Denies cough or trouble breathing
Cardiac: Reports no symptoms; Denies chest pain
ABD/GI: Reports bloody stools; Denies abdominal pain, nausea, vomiting or diarrhea
: Reports no symptoms; Denies dysuria, frequency or urgency
Musculoskeletal: Reports no symptoms
Skin: Reports no symptoms
Neurological: Reports no symptoms; Denies dizzy or headache
Psychiatric: Reports no symptoms
Phy Exam
General Physical Exam
General Presentation: no apparent distress
General age: appears stated age
General Skin: warm and dry
General Habitus: elderly
General Mental: alert
General Hydration: appears well hydrated
ENT Exam
ENT Exam: TM's normal, pharynx normal and neck supple
Eye Exam
Eye Exam: EOMI
Cardiovascular Exam
Cardiovascular Exam: regular rate/rhythm, normal peripheral pulses and other (Valve click noted, )
Pulmonary Exam
Pulmonary Exam: lungs clear, no respiratory distress, no rales, chest non tender, no crackles, no rhonchi, no wheezing and no cough
Gastrointestinal Exam
Gastrointestinal Exam: normal bowel sounds, non tender, soft, no organomegaly, no pulsatile mass, non distended and other (Rectal area noted to have external hemorrhoids and excoriation of rectal area. Stool brown with bright red blood noted. Hem
positive)
Musculoskeletal Exam
Musculoskeletal Exam: full ROM and edema (Lower leg swelling nonpitting)
Skin Exam
Skin Exam: normal color, warm/dry, no rash and no petechia
Psychiatric Exam
Psychiatric Exam: normal mood/affect
Course
Orders/Labs/Results
Orders:
Orders
05/23/24 00:25
Urinalysis Reflex To Culture Urgent
05/23/24 00:46
Complete Blood Count/With Diff Urgent
Comprehensive Metabolic Panel Urgent
Prothrombin Time Urgent
05/23/24 01:54
Phytonadione [Aquamephyton] 10 mg 0.9% Sodium Chloride 50 ml [Nss] 50 ml IV NOW
Prothrombin Complex(Pcc),Human [Kcentra] 3,975 unit Empty Viaflex Container 100 ml [Viaflex Empty Container] 0 ml IV NOW
Does patient have a dx of serious acute active bleeding?: Yes
Does patient have prior history of HIT?: No
Urgent surgery/invasive procedure planned in next 6 hours?: No
Abnormal Lab Results
05/23/24
00:46
RBC 3.37 L 10^6/uL
(4.20-5.40)
Hgb 10.8 L g/dL
(12.0-16.0)
Hct 32.8 L %
(37.0-47.0)
MCH 32.0 H pg
(27.0-31.0)
MCHC 32.9 L g/dL
(33.0-37.0)
RDW 15.5 H %
(11.5-14.5)
Absolute Lymphs (auto) 0.7 L 10^3/uL
(1.2-3.4)
Lymphocytes % 14.6 L %
(20.5-51.1)
Monocytes % 11.7 H %
(1.7-9.3)
PT 61.2 H Sec
(11.4-14.6)
INR 7.22 H*
Carbon Dioxide 17 L mmol/L
(22-30)
BUN 71 H mg/dl
(7-17)
Creatinine 2.9 H mg/dL
(0.6-1.0)
Glucose 153 H mg/dl
(70-99)
Total Bilirubin 1.6 H mg/dl
(0.2-1.3)
AST 104 H U/L
(14-36)
ALT 44 H U/L
(0-35)
Alkaline Phosphatase 171 H U/L
(38-126)
05/23/24 00:46
05/23/24 00:46
H/H low but consistent with prior labs, PT 61.2 with inr 7.22, Carbon dioxide low. Acute renal failure, Hyperglycemia. Total aydin elevation. AST/ALT elevation. Alk phos elevation
Vital Signs
Initial and Last Documented VS:
Initial Vital Signs
Temp Pulse Resp BP Pulse Ox
97.4 F 94 18 110/87 95
05/23/24 00:15 05/23/24 00:15 05/23/24 00:15 05/23/24 00:15 05/23/24 00:15
Last Documented Vital Signs
Temp Pulse Resp BP Pulse Ox
97.4 F 95 19 122/75 97
05/23/24 00:15 05/23/24 01:30 05/23/24 01:30 05/23/24 00:46 05/23/24 01:15
MDM/Problems Addressed
Differential Diagnosis Includes:
GI bleeding. Hemorrhoidal bleeding,
MDM/Problems Addressed:
This is a 78 year old female that was in the hospital 2 weeks ago with GI bleeding. Patient has a colonoscopy at that time. States that tonight she went to the [facility] and she thought there was some bright red blood. States that her INR tonight was 8 and
she was told to hold her Coumadin.
Will check labs.
Back into see patient and family. Explained that her rectal exam was positive. Her INR is extremely high. Her bleeding may be due to the INR elevated. But her BUN and Cr are also elevated which can be seen with bleeding. Will admit patient.
Hospitalist notified.
Chronic conditions affecting care:
GI bleeding. Anal fissures, Hemorrhoids
Acute Exacerbation and/or Progression of Chronic Illness:
Gi bleeding
*Critical Care Note
Total Time (30-74mins, 75-104mins- exclusive of procedures): Not Applicable
ED Attending Note
-
Portions of this chart may have been created with voice recognition software.� Occasional wrong word or��sound alike� substitutions may have occurred due to the inherent limitations of voice recognition software.
Discharge Plan
Departure
Patient Disposition: Admit
Date of Disposition: 05/23/24
Time of Disposition: 02:05
Admit to: Telemetry
Presentation/result/management discussed w/ accepting MD/DO: Hospitalist
Patient with high blood pressure during this ER visit?: No
Condition: Good
Covid-19: Not Applicable
Discharge Problem:
Bright red rectal bleeding, Acute renal failure, Elevated INR
Prescriptions:
No Action
atorvastatin 40 MG tablet
40 mg PO QPM
levalbuterol HCl 0.63 mg/3 mL solution for nebulization
0.63 mg INHALATION R Q8HPRN PRN (Reason: sob/wheezing)
allopurinol 100 mg Tablet
50 mg PO Q48H Qty: 30 0RF
ferrous sulfate 325 mg (65 mg iron) Tablet
325 mg PO DAILY
docusate sodium [Colace] 100 mg Capsule
100 mg PO DAILY
omega 0-ufu-dni-fish oil [Fish Oil] 1,000 (120-180) mg Capsule
1 cap PO DAILY
warfarin [Jantoven] 2.5 mg Tablet
2.5 mg PO QPM 30 Days Qty: 30 0RF
lidocaine 4 % Adhesive Patch,Medicated
1 patch topical DAILY 30 Days Qty: 5 0RF
pantoprazole 40 mg Tablet,Delayed Release (Dr/Ec)
40 mg PO BID 30 Days Qty: 60 0RF
potassium chloride 10 mEq Capsule, Extended Release
10 meq PO QPM 30 Days Qty: 30 0RF
torsemide 20 mg Tablet
20 mg PO QPM 30 Days Qty: 30 0RF
torsemide 20 mg tablet
40 mg PO DAILY 30 Days Qty: 60 0RF
therapeutic multivitamin Tablet
1 tab PO DAILY 30 Days Qty: 30 0RF
acetaminophen [Tylenol Extra Strength] 500 mg Tablet
1,000 mg PO Q8HPRN PRN (Reason: mild pain) 30 Days Qty: 30 0RF
repaglinide 0.5 MG tablet
0.5 mg PO AC 30 Days Qty: 30 0RF
Patient Comments:
nitroglycerin 0.4 mg Tablet, Sublingual
0.4 mg SUBLINGUAL [id number] PRN (Reason: chest pain) 30 Days Qty: 20 0RF
zolpidem 5 mg Tablet
5 mg PO HSPRN PRN (Reason: sleep) 30 Days Qty: 15 0RF
metoprolol succinate 25 mg Tablet Extended Release 24 Hr
25 mg PO BID 30 Days Qty: 60 0RF
senna 8.6 mg Capsule
8.6 mg PO DAILYPRN PRN (Reason: constipation) 30 Days Qty: 30 0RF
psyllium husk 0.4 gram Capsule
0.4 g PO DAILY 30 Days Qty: 30 0RF
triamcinolone-emollient comb45 0.1 % Cream
1 applic TOPICAL DAILY PRN (Reason: shulder and back itching)
magnesium Tablet
1 tab PO BID
Calcium Wiith Zinc
1 tab PO BID
Referrals:
UNKNOWN - PT DOES,NOT KNOW [Family Provider] -
Interventions
Interventions:
*Risk Screen - Suicide Last Done: 05/23/24 00:15
*General Assessment Last Done: 05/23/24 00:15
*Neglect/Abuse Screening Last Done: 05/23/24 00:15
ED- Fall Risk Assessment Last Done: 05/23/24 00:15
*ED COVID-19 Vaccine History Last Done: 05/23/24 00:15
TH-Ydtzpx-Evkbtugtjd Assessment Last Done: 05/23/24 00:15
ED- Cardiac Assessment Last Done: 05/23/24 00:15
ED- Pulmonary Assessment Last Done: 05/23/24 00:15
Discharge Date and Time
Print Language: COLOMBIAN
[2024-05-23 01:06] LABS: % Eosinophils 3.7 % (0-6); % Immature Granulocytes 0.2 % (0-0.5); % Lymphocytes 14.6 % (20.5-51.1); % Monocytes 11.7 % (1.7-9.3); % Neutrophils 68.8 % (42.2-75.2); Absolute Basophils 0.1 10^3/uL (0-0.2); Absolute Eosinophils 0.2 10^3/uL (0-0.7); Absolute Lymphocytes 0.7 10^3/uL (1.2-3.4); Absolute Monocytes 0.6 10^3/uL (0.1-0.6); Absolute Neutrophils 3.3 10^3/uL (1.4-6.5); Hematocrit 32.8 % (37.0-47.0); Hemoglobin 10.8 g/dL (12.0-16.0); Mean Corp Hgb Conc. 32.9 g/dL (33.0-37.0); Mean Corpuscular Volume 97.3 fL (81.0-99.0); Mean Platelet Volume 10.4 fL (7.4-10.4); Nucleated Red Blood Cells % 0 %; Platelet Count 190 10^3/uL (130-400); Red Blood Cell Count 3.37 10^6/uL (4.20-5.40); Red Cell Dist. Width 15.5 % (11.5-14.5); White Blood Cell Count 4.9 10^3/uL (4.8-10.8)
[2024-05-23 01:13] LABS: PT 61.2 Sec (11.4-14.6)
[2024-05-23 01:19] LABS: INR 7.22
[2024-05-23 01:50] LABS: ALT (SGPT) 44 U/L (0-35); AST (SGOT) 104 U/L (14-36); Albumin 4.2 g/dl (3.5-5.0); Alkaline Phosphatase 171 U/L (38-126); Blood Urea Nitrogen 71 mg/dl (7-17); Calcium 9.6 mg/dl (8.4-10.2); Carbon Dioxide 17 mmol/L (22-30); Chloride 100 mmol/L (98-107); Glucose 153 mg/dl (70-99); Potassium 4.9 mmol/L (3.5-5.1); Sodium 136 mmol/L (135-145); Total Bilirubin 1.6 mg/dl (0.2-1.3); Total Protein 6.9 g/dl (6.3-8.2); eGFR 15.87
[2024-05-23] MEDS: AQUAMEPHYTON 51 MG IV (02:29)
--- NOTE | 2024-05-23 02:34 | HPS.HSE ---
Family Physician
-
Family Physician: NOT KNOW UNKNOWN - PT DOES
Chief Complaint
-
Acute rectal bleeding
History of Present Illness
This is a 78-year-old female was past medical history of mechanical mitral valve replacement, AAA status post TAVR, permanent atrial fibrillation, congestive heart failure and GERD who presents to the emergency department with a 1 day history of
rectal bleeding and found to have elevated INR.
Patient was recently admitted to the hospital and was discharged on May 12 for JOJO. At that time she was found to have rectal bleeding. She was bridged to heparin from Coumadin and underwent colonoscopy which showed 2 polyps along the sigmoid
segment as well as internal hemorrhoids. Hemoglobin remained stable and the bleeding ceased and patient was transferred back to Coumadin. With cessation of bleeding and down titrating diuretics the creatinine improved. Patient was discharged on
usual dose of Coumadin 2.5 mg daily. Her metolazone was discontinued. Spironolactone was discontinued. She was started on Protonix twice daily. Torsemide was continued at 40 mg in am and 20 mg in the evenings.
Patient reported that she was in usual state of health after discharge. She denied any changes to her medications since then. She denied any changes to her diet. She denied constipation or straining. She reported that today she measured her INR
at home for the first time and it was elevated at 8. This was confirmed by refinery superintendent who instructed her to not take the evening dose of the Coumadin and then to recheck the INR tomorrow. She was instructed to go to the emergency department if
there was any bleeding. However the evening the patient started having rectal bleeding without any tenesmus abdominal pain nausea or vomiting. She had no prior diarrhea or constipation. The bleeding was profuse and patient was brought to the
emergency department.
She denies feeling dizzy or lightheaded. She denied any chest pain, shortness of breath, palpitations. I noticed some wheezing and family reports that she has had intermittent wheezing she is since she has been discharged. They reported that
there has been no significant weight change with a weight of around 160 pounds which is at baseline. They denied any significant changes to her lower extremities.
In the emergency department she was afebrile, blood pressure was 122/75. Heart rate was 95. Hemoglobin was 10.8 which is slightly decreased from 11.5 previously. Chemistries were notable for a creatinine of 2.9. Potassium was 4.9. Bicarb was
17. INR was 7.2
Medical History
Past Medical History
Past Medical History: Reports Arrhythmia (Permanent atrial fibrillation, status post ICD), CAD (CAD status post CABG), CHF (CHF with preserved EF), HTN, Hypercholesterolemia, NIDDM and Other (CKD)
Past Surgical History: Reports Cardiac (TAVR, mechanical mitral valve replacement, CABG)
Social History
Tobacco: Non-smoker
Alcohol: None
Drug: None
Personal:
Living: With Family
Employment: Retired
Family History
Family History: Not pertinent
Allergies / Home Medications
Allergies reflects when Allergies were last updated in [employer] [address].
Home Medications with original date entered in [employer] [address]
Allergy/Medication List:
Allergies
Allergy/AdvReac Type Severity Reaction Status Date / Time
No Known Allergies Allergy Verified 05/23/24 00:43
Home Medications
atorvastatin 40 mg tablet 40 mg PO QPM High cholesterol 09/22/19
levalbuterol HCl 0.63 mg/3 mL solution for nebulization 0.63 mg inhalation R Q8HPRN PRN sob/wheezing 11/22/22
allopurinol 100 mg tablet 50 mg (1/2 x 100 mg) PO Q48H Gout #30 tabs 08/26/23
docusate sodium 100 mg capsule (Colace) 100 mg PO DAILY Constipation 05/01/24
ferrous sulfate 325 mg (65 mg iron) tablet 325 mg PO DAILY Supplement 05/01/24
omega 2-qei-cse-fish oil 1,000 mg (120 mg-180 mg) capsule (Fish Oil) 1 cap PO DAILY Supplement 05/01/24
acetaminophen 500 mg tablet (Tylenol Extra Strength) 1,000 mg (2 x 500 mg) PO Q8HPRN PRN mild pain 30 days #30 tabs 05/12/24
lidocaine 4 % topical patch 1 patch topical DAILY 30 days #5 ea 05/12/24
metoprolol succinate 25 mg tablet,extended release 24 hr 25 mg PO BID Arrhythmia 30 days #60 tabs 05/12/24
nitroglycerin 0.4 mg sublingual tablet 0.4 mg sublingual [id number] PRN chest pain 30 days #20 tabs 05/12/24
pantoprazole 40 mg tablet,delayed release 40 mg PO BID Gastrointestinal issue 30 days #60 tabs 05/12/24
potassium chloride 10 mEq capsule,extended release 10 meq PO QPM Supplement 30 days #30 caps 05/12/24
psyllium husk 0.4 gram capsule 0.4 g PO DAILY Constipation 30 days #30 packets 05/12/24
repaglinide 0.5 mg tablet 0.5 mg PO AC Diabetes 30 days #30 tabs 05/12/24
sennosides 8.6 mg capsule (senna) 8.6 mg PO DAILYPRN PRN constipation 30 days #30 caps 05/12/24
therapeutic multivitamin 1 tab PO DAILY Supplement 30 days #30 tabs 05/12/24
torsemide 20 mg tablet 20 mg PO QPM 30 days #30 tabs 05/12/24
torsemide 20 mg tablet 40 mg (2 x 20 mg) PO DAILY Fluid retention/Swelling 30 days #60 tabs 05/12/24
warfarin 2.5 mg tablet (Jantoven) 2.5 mg PO QPM Blood clot prevention/tx 30 days #30 tabs 05/12/24
zolpidem 5 mg tablet 5 mg PO HSPRN PRN sleep 30 days #15 tabs 05/12/24
Calcium Wiith Zinc 1 tab PO BID 05/23/24
magnesium 1 tab PO BID 05/23/24
triamcinolone acetonide 0.1 %-emollient [id number] topical cream 1 applic topical DAILY PRN shulder and back itching 05/23/24
Review of Systems
-
History Source: Patient and Family
Constitutional: Reports No Symptoms
EENT: Reports No Symptoms
Respiratory: Reports No Symptoms and Other (wheezing)
Cardiac: Reports No Symptoms
Abdomen/GI: Reports Bloody Stools
: Reports No Symptoms
Musculoskeletal: Reports No Symptoms
Skin: Reports No Symptoms
Neurological: Reports No Symptoms
Endocrine: Reports No Symptoms
Hematologic/Lymphatic: Reports No Symptoms
Psych: Reports No Symptoms
Physical Exam
Vital Signs
Vital Signs
Temp Pulse Resp BP Pulse Ox
97.4 F 95 19 122/75 97
05/23/24 00:15 05/23/24 01:30 05/23/24 01:30 05/23/24 00:46 05/23/24 01:15
Physical Exam
General: Well Developed, Comfortable and Conversant
HEENT: NormoCephalic, Anicteric and Atraumatic
Respiratory: Wheezes (occasional wheezes)
Cardiac: S1/S2 and Irregular Rhythm
Breast: Deferred by me
GI: Soft, Non Tender, Non Distended and Normal Bowel Sounds
Rectal: Red
Genito-urinary: Deferred by me
Musculoskeletal: No Clubbing, No Cyanosis, Edema, Left Lower Extremity (trace) and Edema, Right Lower Extremity (trace)
Skin: Warm
Neuro: AO x 3
Hematologic/Lymphatic: No Lymphadenopathy
Psych: Calm
Laboratory Results
-
05/23/24 00:46
05/23/24 00:46
Laboratory Results
PT 61.2 Sec (11.4-14.6) H 05/23/24 00:46
INR 7.22 H* 05/23/24 00:46
Total Bilirubin 1.6 mg/dl (0.2-1.3) H 05/23/24 00:46
AST 104 U/L (14-36) H 05/23/24 00:46
ALT 44 U/L (0-35) H 05/23/24 00:46
Alkaline Phosphatase 171 U/L (38-126) H 05/23/24 00:46
Data Reviewed
-
Lab Data: Labs Reviewed by me
Old Records: Reviewed
Impression/Plan
-
IMPRESSION:
Patient on anticoagulation with Coumadin for mitral valve replacement (mechanical mitral valve) and also has history of proximal atrial fibrillation who presents to the emergency department with rectal bleeding in the setting of elevated INR up to 8
at home. Currently INR was 7.22. She is hemodynamically stable at this time. Hemoglobin is trended downwards by about 1g/dl.
PLAN:
1. Rectal bleeding - Recent colonoscopy 2 weeks ago with 2 polyps and internal hemorrhoids thought to be source of GI bleed, now with INR of 7.22. Likely from supratherapeutic INR. No other source noted at the time. Unclear reason why INR is
elevated. No new meds, diet etc. Unlikely dose confusion as she has been on this dose of 2.5 for a long time. Given significant bleeding will need some gentle correction.
- admit to telemetry
- holding coumadin
- correct INR with IV Vitamin K x 1
- repeat INR in am while holding coumadin
- type and screen
- no indication to transfuse at this time
- put on clear diet, though unlikely will need a repeat scope
- GI consultation
2. JOJO - Creatinine up to 2.9 from 1.7. This despite stopping metolazone. She does not appear to be volume overload though as a mild wheeze which could be from CHF. She also does not seem dry. No nephrotoxins. No dysuria or changes in urinary
output.
- check xray for any signs of pulm edema
- if negative, hold diuretics for now
- check u/a for blood, wbc (ppi a new medication started) so possibly ain
- nephrology consult
- renal dose medications
3. CHF - appears euvolemic
- check xray as above
- hold torsemide 40, 20 unless there is new pulm edema then IV lasix
- daily weight and i/o
- continue metoprolol succinate
4. AFIB
- holding coumadin
- continue metoprolol
5. DM II
- insulin sliding scale for now
DVT PPX - anticoagulated
Code Status - DNR
[2024-05-23] MEDS: KCENTRA 140 UNIT IV (02:59)
[2024-05-23 05:13] LABS: Hematocrit 31.5 % (37.0-47.0); Hemoglobin 10.6 g/dL (12.0-16.0); Mean Corp Hgb Conc. 33.7 g/dL (33.0-37.0); Mean Corpuscular Hgb 32.9 pg (27.0-31.0); Mean Corpuscular Volume 97.8 fL (81.0-99.0); Mean Platelet Volume 10.7 fL (7.4-10.4); Platelet Count 183 10^3/uL (130-400); Red Blood Cell Count 3.22 10^6/uL (4.20-5.40); Red Cell Dist. Width 15.4 % (11.5-14.5); White Blood Cell Count 4.9 10^3/uL (4.8-10.8)
[2024-05-23 05:13] LABS: Hemoglobin 10.7 g/dL (12.0-16.0)
[2024-05-23 05:32] LABS: Blood Urea Nitrogen 73 mg/dl (7-17); Calcium 9.5 mg/dl (8.4-10.2); Carbon Dioxide 17 mmol/L (22-30); Chloride 102 mmol/L (98-107); Estimated Creatinine Clearance 16 ml/min; Glucose 123 mg/dl (70-99); Magnesium 2.6 mg/dl (1.6-2.3); Potassium 4.6 mmol/L (3.5-5.1); Sodium 134 mmol/L (135-145); eGFR 16.55
[2024-05-23 05:40] LABS: NT-proBNP 3060 pg/ml
[2024-05-23 06:15] LABS: PT 20.5 Sec (11.4-14.6)
[2024-05-23 07:51] LABS: Glucose - Point of Care 115 mg/dl (70-99)
[2024-05-23] MEDS: NOVOLOG FLEXPEN-LOW RESISTANCE SC ×3 (09:49→17:01)
[2024-05-23] MEDS: DESENEX/MITRAZOL/ZEASORB 1 APPLIC TOPICAL ×2 (09:49→21:59)
[2024-05-23] MEDS: COLACE 100 MG PO (09:50)
[2024-05-23] MEDS: METAMUCIL, KONSYL 1 PACKET PO (09:50)
[2024-05-23] MEDS: TOPROL XL 25 MG PO ×2 (09:50→21:59)
--- NOTE | 2024-05-23 10:08 | W.CON.NEPH ---
Consultation
-
Date/Time Consultation Requested: 05/23/2024 7:30 PM
Date/Time Consultation Performed: 05/23/2024 10:00 AM
Requesting Provider: Dr. Casillas
Performing Provider: Dr. Pantoja
Reason for Consultation: Acute on chronic kidney disease
Medical History
-
Chief Complaint: Acute kidney injury
History of Present Illness:
The patient is an 78-year-old female with a past medical history of chronic HFpEF(maintained on torsemide), mechanical mitral valve, TAVR, ventricular fibrillation status post ICD, CAD status post CABG, chronic right bundle branch block, permanent
atrial fibrillation, CKD 4 with a baseline of ~2, , hypertension (maintained on metoprolol_ hyperlipidemia, type 2 diabetes, gout, tremors, subdural hemorrhage, obesity, presenting with rectal bleeding again. She had just been admitted to the ""hospital 2 weeks prior with similar presentation. At discharge from the hospital on 05/12/2024 her creatinine was down to 1.7 within its baseline. She represented to the hospital last evening with rectal bleeding and acute kidney injury with her
creatinine up to 2.9. She was hemodynamically stable with a hemoglobin stable at 10.8
Nephrology was consulted for acute kidney injury.
Past Medical History
(chronic HFpEF, mechanical mitral valve, TAVR, ventricular fibrillation status post ICD, CAD status post CABG, chronic right bundle branch block, permanent atrial fibrillation, CKD 4 (2), hypertension, hyperlipidemia, type 2 diabetes, gout, tremors,
subdural hemorrhage, obesity,)
Social History
Tobacco: Non-Smoker
Alcohol: None
Family History
No chronic kidney disease
Family History: Not Pertinent
Allergies / Home Medications
Allergy/AdvReac Type Severity Reaction Status Date / Time
No Known Allergies Allergy Verified 05/23/24 00:43
�Medication �Instructions �Recorded �Confirmed �Type
atorvastatin 40 mg tablet 40 mg PO QPM High cholesterol 09/22/19 05/23/24 History
levalbuterol HCl 0.63 mg/3 mL 0.63 mg inhalation R Q8HPRN PRN 11/22/22 05/23/24 History
solution for nebulization sob/wheezing
allopurinol 100 mg tablet 50 mg (1/2 x 100 mg) PO Q48H Gout 08/26/23 05/23/24 Rx
#30 tabs
docusate sodium 100 mg capsule 100 mg PO DAILY Constipation 05/01/24 05/23/24 History
(Colace)
ferrous sulfate 325 mg (65 mg 325 mg PO DAILY Supplement 05/01/24 05/23/24 History
iron) tablet
omega 1-cym-pwg-fish oil 1,000 mg 1 cap PO DAILY Supplement 05/01/24 05/23/24 History
(120 mg-180 mg) capsule (Fish Oil)
acetaminophen 500 mg tablet 1,000 mg (2 x 500 mg) PO Q8HPRN 05/12/24 05/23/24 Rx
(Tylenol Extra Strength) PRN mild pain 30 days #30 tabs
lidocaine 4 % topical patch 1 patch topical DAILY 30 days #5 ea 05/12/24 05/23/24 Rx
metoprolol succinate 25 mg 25 mg PO BID Arrhythmia 30 days 05/12/24 05/23/24 Rx
tablet,extended release 24 hr #60 tabs
nitroglycerin 0.4 mg sublingual 0.4 mg sublingual [id number] PRN 05/12/24 05/23/24 Rx
tablet chest pain 30 days #20 tabs
pantoprazole 40 mg tablet,delayed 40 mg PO BID Gastrointestinal 05/12/24 05/23/24 Rx
release issue 30 days #60 tabs
potassium chloride 10 mEq 10 meq PO QPM Supplement 30 days 05/12/24 05/23/24 Rx
capsule,extended release #30 caps
psyllium husk 0.4 gram capsule 0.4 g PO DAILY Constipation 30 05/12/24 05/23/24 Rx
days #30 packets
repaglinide 0.5 mg tablet 0.5 mg PO AC Diabetes 30 days #30 05/12/24 05/23/24 Rx
tabs
sennosides 8.6 mg capsule (senna) 8.6 mg PO DAILYPRN PRN 05/12/24 05/23/24 Rx
constipation 30 days #30 caps
therapeutic multivitamin 1 tab PO DAILY Supplement 30 days 05/12/24 05/23/24 Rx
#30 tabs
torsemide 20 mg tablet 20 mg PO QPM 30 days #30 tabs 05/12/24 05/23/24 Rx
torsemide 20 mg tablet 40 mg (2 x 20 mg) PO DAILY Fluid 05/12/24 05/23/24 Rx
retention/Swelling 30 days #60 tabs
warfarin 2.5 mg tablet (Jantoven) 2.5 mg PO QPM Blood clot 05/12/24 05/23/24 Rx
prevention/tx 30 days #30 tabs
zolpidem 5 mg tablet 5 mg PO HSPRN PRN sleep 30 days 05/12/24 05/23/24 Rx
#15 tabs
Calcium Wiith Zinc 1 tab PO BID 05/23/24 History
magnesium 1 tab PO BID 05/23/24 05/23/24 History
triamcinolone acetonide 0.1 % 1 applic topical BID PRN shoulder 05/23/24 05/23/24 History
topical cream and back itching
Review of Systems
-
History Source: Patient
All other systems: Negative unless noted
Constitutional: Fatigue
EENT: No Symptoms
Respiratory: Other (Chronic shortness of breath no cough or hemoptysis)
Cardiac: No Symptoms
Abdomen/GI: Bloody Stools
: No Symptoms
Skin: No Symptoms
Neurological: No Symptoms
Endocrine: No Symptoms
Hematologic/Lymphatic: No Symptoms
Physical Exam
Vital Signs
Vital Signs
Temp Pulse Resp BP Pulse Ox
97.4 F 105 18 136/71 96
05/23/24 07:40 05/23/24 07:40 05/23/24 07:40 05/23/24 07:40 05/23/24 07:40
Lab Results
WBC 4.9 10^3/uL (4.8-10.8) 05/23/24 04:48
RBC 3.22 10^6/uL (4.20-5.40) L 05/23/24 04:48
Plt Count 183 10^3/uL (130-400) 05/23/24 04:48
Sodium 134 mmol/L (135-145) L 05/23/24 04:48
Potassium 4.6 mmol/L (3.5-5.1) 11 04:48
Chloride 102 mmol/L (98-107) 11 04:48
Carbon Dioxide 17 mmol/L (22-30) L 05/23/24 04:48
BUN 73 mg/dl (7-17) H 05/23/24 04:48
Creatinine 2.8 mg/dL (0.6-1.0) H 05/23/24 04:48
eGFR 16.55 05/23/24 04:48
Glucose 123 mg/dl (70-99) H 05/23/24 04:48
Calcium 9.5 mg/dl (8.4-10.2) 05/23/24 04:48
Epp-Q-Zzvrdutzhjg Pept 3060 pg/ml 05/23/24 04:48
Albumin 4.2 g/dl (3.5-5.0) 05/23/24 00:46
Physical Exam
General: AOx3, Nontoxic , NAD
HEENT: PERRL, EOMI, Anicteric, Conjunctivae Clear, Ear/Nose Intact, Hearing Normal, Oropharynx Clear/Moist, Dentition Intact, Facial Symmetry, Neck Supple, Neck: Trachea Midline, No JVD and No Thyromegaly, no Bruits
Respiratory: Clear to auscultation bilaterally with normal lung exersion, decreased breath sounds to bases
Cardiac: S1/S2 and irregular rate/Rhythm (ICD)
Breast: Deferred by me
Abdomen: Soft, Nontender, Nondistended, Normal Bowel Sounds and No Hepatosplenomegaly
Rectal: Deferred by Provider
Genito-urinary: No Costovertebral Tenderness
Extremities: No Clubbing, No Cyanosis and trace pitting edema
Skin: No Rash or open lesions
Neuro: Nonfocal/Grossly Intact, CN II-XII (Intact) and Strength (Musculoskeletal exam 5 out of 5 both upper and lower extremities)
Hematologic/Lymphatic: No Cervical Lymphadenopathy, No Submandibular Lymphadenopathy and No Supraclavicular Lymphadenopathy
Psych: Mood/afflect pleasant, Insight/judgement good and Appropriate
Vascular: plus 1 pedal and radial pulses
Data Reviewed
-
Radiology: Image Personally Visualized and interpreted (Chest x-ray personally reviewed: Sternal tono left anterior chest quadrant AICD chronic interstitial lung disease changes small right pleural effusion no overt CHF)
Labs: Labs Reviewed by me (BMP CBC)
Old Records: Reviewed (Reviewed old creatinine level of 1.7 on 05/12/2024 in EMR from last admission)
Assessment/Plan
-
Impression:
Bright red blood per rectum
Acute kidney injury (2.8)
CKD stage IIIb with baseline creatinine 1.7
Metabolic acidosis (gapped)
Atrial fibrillation on chronic anticoagulation
Hypertension
Diabetes
Congestive heart failure with preserved EF
Valvular heart disease (hx of mechanical valve replacement)
CAD with history of CABG
ICD
Plan:
JOJO:
-Strongly suspect acute kidney injury is related to prerenal stimulus from GI bleeding versus diuretic use
-Curiously, her weights are actually up from discharge. Does not examine overtly volume overloaded since last admission
-Currently withholding diuretics, chest x-ray without overt congestive heart failure, continue to follow i/os and daily weights
-Will obtain urinalysis urine protein to creatinine ratio and fractional excretion of sodium
-Gapped metabolic acidosis present since last admission, if exacerbates will initiate sodium bicarbonate tablets
-Would check bladder scan to assess for possible obstructive component
-Has maintained hemodynamic stability on metoprolol
[2024-05-23 10:40] LABS: Urine Albumin 2+ (Neg - Trace); Urine Bilirubin Negative (Negative); Urine Character Very Cloudy (Clear); Urine Color Yellow; Urine Glucose Negative (Negative); Urine Ketone Negative (Negative); Urine Leukocyte 2+ (Negative); Urine Nitrite Negative (Negative); Urine Occult Blood 4+ (Negative); Urine Specific Gravity 1.015 (<1.030); Urine Urobilinogen Negative (Neg - 1+)
[2024-05-23 11:00] LABS: Urine Squamous Cell 0-2 /LPF (Few)
[2024-05-23 11:01] LABS: Urine Bacteria Few (Negative); Urine White Cell 70-80 /HPF (0-5)
--- NOTE | 2024-05-23 11:04 | W.PN.UPDATE ---
Update Note
Progress Note Update
Non-billable addendum
Admitted earlier this morning for rectal bleeding in setting of elevated INR. Coumadin held and Vitamin K given, now INR is 1.70.
No bleeding reported in hospital
Hb 10.7 most recently, baseline is 11 to 12.
Feels comfortable
Assessment:
Recurrent bright red blood per rectum, exacerbated by Coumadin (elevated INR level)
Chronic blood loss anemia
- Suspected hemorrhoidal origin again
- noted recent Colonoscopy with small polyps and hemorrhoids (internal).
- recommended last admit Metamucil + prn HC cream - patient did not recall such recommendations
- colorectal consulted
- monitor Hb, stable
- clears for now
JOJO on CKD stage 3b
gapped metabolic acidosis
- suspected pre-renal
- Cr 2.8 today
- continue to hold diuretics. no overt signs of CHF by exam/imaging
- check bladder scans
- Nephrology following
Atrial fibrillation on chronic anticoagulation
Supratherapeutic INR on Coumadin
- Coumadin held and s/p Vitamin K and K-Centra
- holding Coumadin pending colorectal eval; will need bridging likely with lower dose given elevated INR.
- continue BB
Congestive heart failure with preserved EF
- holding diuretics
- monitor weights, I/Os
- continue BB
Essential HTN
- continue BB
Type 2 DM
- continue SSI for now
- recent A1C: 6.4%
DVT ppx: SCDs for now
Code: DNR/DNI
--- NOTE | 2024-05-23 11:28 | CM ---
CM following re: discharger planning.
Reviewed pt's chart, met with pt.
Pt is an 78 year old female, admitted with primary dx of Rectal Bleeding.
Pt reports she lives with in a 2SH, 2 steps to enter, has 4 supportive children. Pt reports she ambulates with a walker and a cane, has shower chair, stair glide, known to [facility] and pt was at [facility], [facility] and
[facility] in the past. Pt expressed her strong desire to return back home with [facility].
PT and OT will evaluate the pt to determine a level of care at discharge.
A referral to [facility] made.
PCP: Pastor Kolb
Pharmacy: - [facility]
D/C plan: per pt's request, home with [facility] and family support. Family to transport at discharge.
CM will follow with discharge plan updates as hospitalization progresses
[2024-05-23 11:55] LABS: Glucose - Point of Care 115 mg/dl (70-99)
[2024-05-23 12:50] LABS: Hematocrit 32.4 % (37.0-47.0); Hemoglobin 10.6 g/dL (12.0-16.0)
[2024-05-23 14:45] LABS: Protein/creatinine Ratio 1.2; Urine Protein 120 mg/dl
--- NOTE | 2024-05-23 14:57 | CON.CRS ---
Consultation
-
Date/Time Consultation Requested: 05/23/2024, 13:00
Date/Time Consultation Performed: 05/23/2024, 16:00
Requesting Provider: José Miguel Casillas MD
Performing Provider: Jose Ludwig MD
Reason for Consultation: rectal bleeding
Medical History
-
Chief Complaint: rectal bleeding
History of Present Illness:
78yo female s/p mitral valve replacement and afib on coumadin presents to [facility] due to rectal bleeding. The patient states the bleeding started yesterday and stopped once her INR (greater than 7) was reversed. Prior to this, she was
admitted ot the hospital on 05/12/24 due to JOJO and rectal bleeding. She underwent a colonoscopy by Dr. Segura which showed 2 polyps along the sigmoid segment as well as internal hemorrhoids. She stopped bleeding during the hospitalization and has
not rebled until last night. In the ER, her INR was 7.22 and was reversed. Today it is 1.7. She has had no further imaging since admission. Her bleeding has stopped. She denies changes in bowel movements or rectal pain. She denies fevers or chills.
She has no nausea or vomiting. We have been consulted to evaluate her rectal bleeding.
Past Medical History
Past Medical History: Other (Arrhythmia (Permanent atrial fibrillation, status post ICD), CAD (CAD status post CABG), CHF (CHF with preserved EF), HTN, Hypercholesterolemia, NIDDM and Other (CKD))
Past Surgical History: Other (TAVR, mechanical mitral valve replacement, CABG)
Social History
Tobacco: Non-Smoker
Alcohol: None
Drug: None
Family History
Family History: Reviewed & Not Pertinent
Allergies / Home Medications
Allergy/AdvReac Type Severity Reaction Status Date / Time
No Known Allergies Allergy Verified 05/23/24 00:43
�Medication �Instructions �Recorded �Confirmed �Type
atorvastatin 40 mg tablet 40 mg PO QPM High cholesterol 09/22/19 05/23/24 History
levalbuterol HCl 0.63 mg/3 mL 0.63 mg inhalation R Q8HPRN PRN 11/22/22 05/23/24 History
solution for nebulization sob/wheezing
allopurinol 100 mg tablet 50 mg (1/2 x 100 mg) PO Q48H Gout 08/26/23 05/23/24 Rx
#30 tabs
docusate sodium 100 mg capsule 100 mg PO DAILY Constipation 05/01/24 05/23/24 History
(Colace)
ferrous sulfate 325 mg (65 mg 325 mg PO DAILY Supplement 05/01/24 05/23/24 History
iron) tablet
omega 8-pmq-gsh-fish oil 1,000 mg 1 cap PO DAILY Supplement 05/01/24 05/23/24 History
(120 mg-180 mg) capsule (Fish Oil)
acetaminophen 500 mg tablet 1,000 mg (2 x 500 mg) PO Q8HPRN 05/12/24 05/23/24 Rx
(Tylenol Extra Strength) PRN mild pain 30 days #30 tabs
lidocaine 4 % topical patch 1 patch topical DAILY 30 days #5 ea 05/12/24 05/23/24 Rx
metoprolol succinate 25 mg 25 mg PO BID Arrhythmia 30 days 05/12/24 05/23/24 Rx
tablet,extended release 24 hr #60 tabs
nitroglycerin 0.4 mg sublingual 0.4 mg sublingual [id number] PRN 05/12/24 05/23/24 Rx
tablet chest pain 30 days #20 tabs
pantoprazole 40 mg tablet,delayed 40 mg PO BID Gastrointestinal 05/12/24 05/23/24 Rx
release issue 30 days #60 tabs
potassium chloride 10 mEq 10 meq PO QPM Supplement 30 days 05/12/24 05/23/24 Rx
capsule,extended release #30 caps
psyllium husk 0.4 gram capsule 0.4 g PO DAILY Constipation 30 05/12/24 05/23/24 Rx
days #30 packets
repaglinide 0.5 mg tablet 0.5 mg PO AC Diabetes 30 days #30 05/12/24 05/23/24 Rx
tabs
sennosides 8.6 mg capsule (senna) 8.6 mg PO DAILYPRN PRN 05/12/24 05/23/24 Rx
constipation 30 days #30 caps
therapeutic multivitamin 1 tab PO DAILY Supplement 30 days 05/12/24 05/23/24 Rx
#30 tabs
torsemide 20 mg tablet 20 mg PO QPM 30 days #30 tabs 05/12/24 05/23/24 Rx
torsemide 20 mg tablet 40 mg (2 x 20 mg) PO DAILY Fluid 05/12/24 05/23/24 Rx
retention/Swelling 30 days #60 tabs
warfarin 2.5 mg tablet (Jantoven) 2.5 mg PO QPM Blood clot 05/12/24 05/23/24 Rx
prevention/tx 30 days #30 tabs
zolpidem 5 mg tablet 5 mg PO HSPRN PRN sleep 30 days 05/12/24 05/23/24 Rx
#15 tabs
Calcium Wiith Zinc 1 tab PO BID 05/23/24 History
magnesium 1 tab PO BID 05/23/24 05/23/24 History
triamcinolone acetonide 0.1 % 1 applic topical BID PRN shoulder 05/23/24 05/23/24 History
topical cream and back itching
Review of Systems
-
History Source: Patient and Family
Abdomen/GI: Bloody Stools
A 10 point review of systems was completed, and was negative except as per HPI.
Physical Exam
Vital Signs
Temp 97.4 F 05/23/24 11:47
Pulse 85 05/23/24 11:47
Resp Rate 17 05/23/24 11:47
Blood pressure 105/69 05/23/24 11:47
SaO2 98 05/23/24 11:47
05/22/24 05/23/24 05/24/24
06:59 06:59 06:59
Actual Weight 78.018 kg
Body Mass Index (BMI) 29.5
Lab Results / Allergies
05/23/24 04:48
WBC 4.9 10^3/uL (4.8-10.8) 05/23/24 04:48
Hgb 10.6 g/dL (12.0-16.0) L 05/23/24 11:33
Hct 32.4 % (37.0-47.0) L 05/23/24 11:33
Plt Count 183 10^3/uL (130-400) 05/23/24 04:48
Abs Immat Gran (auto) 0.0 10^3/uL (0-0.05) 05/23/24 00:46
Neutrophils % 68.8 % (42.2-75.2) 05/23/24 00:46
Allergy/AdvReac Type Severity Reaction Status Date / Time
No Known Allergies Allergy Verified 05/23/24 00:43
Physical Exam
General: Well Developed, Well Nourished and No Apparent Distress
GI: Soft, Non Tender and Non Distended
Rectal: Other (external hemorrhoids)
Psych: Calm
Data Reviewed
-
Labs: Labs Reviewed by me, Discussed with Physician, Discussed with Patient and Discussed with Family
Old Records: Reviewed
Assessment / Plan
-
Assessment: 78yo female with known hemorrhoids with new onset rectal bleeding in the setting of an INR >7
Plan:
-No plans for surgery at this time
-Okay to go back on coumadin per hospitalist
-Follow up with Dr. Ludwig in 1 week from discharge, may require rubber band ligation of the hemorrhoids in the office vs surgery if continues to bleed
-If bleeds inpatient when coumadin restarted, will plan for surgery early next week
-Discussed plan above with patient and hosptialist
-OKay to go on a diet
[2024-05-23 16:20] LABS: APTT 41.2 Sec (23.4-35.0)
[2024-05-23] MEDS: LIPITOR 40 MG PO (16:25)
[2024-05-23] MEDS: HEPARIN 25000 UNITS/250 ML IV (16:28)
[2024-05-23 16:38] LABS: Glucose - Point of Care 141 mg/dl (70-99)
[2024-05-23 20:24] LABS: Hematocrit 30.5 % (37.0-47.0); Hemoglobin 10.4 g/dL (12.0-16.0)
[2024-05-23 21:27] LABS: Glucose - Point of Care 172 mg/dl (70-99)
[2024-05-23] MEDS: PROTONIX 40 MG PO (21:59)
[2024-05-23] MEDS: AMBIEN 5 MG PO (21:59)
--- NOTE | 2024-05-23 23:20 | PTCARENOTE ---
PTT resulted >200 -- per protocol held infusion and notified provider. Notified KATE Gee. Will restart in 2 hours at decreased rate. No further interventions at this time. Will monitor.
[2024-05-23 23:21] LABS: APTT > 200 Sec (23.4-35.0)
[2024-05-24 03:49] VITALS: BP 119/72
[2024-05-24 06:00] VITALS: BMI 30.1
[2024-05-24 08:13] LABS: Hematocrit 31.9 % (37.0-47.0); Hemoglobin 10.2 g/dL (12.0-16.0); Mean Corpuscular Hgb 32.4 pg (27.0-31.0); Mean Corpuscular Volume 101.3 fL (81.0-99.0); Mean Platelet Volume 10.9 fL (7.4-10.4); Platelet Count 152 10^3/uL (130-400); Red Blood Cell Count 3.15 10^6/uL (4.20-5.40); Red Cell Dist. Width 15.9 % (11.5-14.5); White Blood Cell Count 5.1 10^3/uL (4.8-10.8)
[2024-05-24 08:29] LABS: Glucose - Point of Care 95 mg/dl (70-99)
[2024-05-24 08:40] VITALS: BP 125/74
[2024-05-24 08:41] LABS: INR 1.47; PT 18.1 Sec (11.4-14.6)
[2024-05-24] MEDS: NOVOLOG FLEXPEN-LOW RESISTANCE SC ×2 (09:21→17:18)
[2024-05-24] MEDS: TOPROL XL 25 MG PO ×2 (09:22→20:36)
[2024-05-24] MEDS: FEOSOL 325 MG PO (09:23)
[2024-05-24] MEDS: DESENEX/MITRAZOL/ZEASORB 1 APPLIC TOPICAL ×2 (09:23→20:37)
[2024-05-24] MEDS: PROTONIX 40 MG PO ×2 (09:23→20:36)
[2024-05-24] MEDS: COLACE 100 MG PO (09:23)
[2024-05-24] MEDS: METAMUCIL, KONSYL 1 PACKET PO (09:23)
[2024-05-24 09:25] LABS: Blood Urea Nitrogen 62 mg/dl (7-17); Carbon Dioxide 14 mmol/L (22-30); Chloride 107 mmol/L (98-107); Estimated Creatinine Clearance 22 ml/min; Glucose 77 mg/dl (70-99); Sodium 136 mmol/L (135-145); eGFR 23.38
[2024-05-24] MEDS: STERILE WATER FOR INJECTION 10 ML IV (09:32)
[2024-05-24] MEDS: ROCEPHIN 1000 MG IV (09:32)
--- NOTE | 2024-05-24 09:50 | W.PN.NEPH.PH ---
Today's Communication / Plan
-
Add sodium bicarbonate tablets 650 mg 3 times daily
Check lactic acid
Follow-up BMP
Continue to hold diuretic
Assessment/Plan
-
Impression:
Bright red blood per rectum
Acute kidney injury (2.8)
CKD stage IIIb with baseline creatinine 1.7
Metabolic acidosis (gapped)
Atrial fibrillation on chronic anticoagulation
Hypertension
Diabetes
Congestive heart failure with preserved EF
Valvular heart disease (hx of mechanical valve replacement)
CAD with history of CABG
ICD
Plan:
JOJO:
-Strongly suspect acute kidney injury is related to prerenal stimulus from GI bleeding versus diuretic use
-Creatinine improved from 2.8 down to 2.1 with improving BUN down to 62
-Curiously, her weights are actually up from discharge. Does not examine overtly volume overloaded since last admission
-Currently withholding diuretics, chest x-ray without overt congestive heart failure, continue to follow i/os and daily weights, weights elevated but remains nonoliguric
-Will obtain urinalysis urine protein to creatinine ratio and fractional excretion of sodium
-Gapped metabolic acidosis present since last admission, will initiate sodium bicarbonate tablets his bicarb down to 14, check lactic acid level
-Would check bladder scan to assess for possible obstructive component
-Has maintained hemodynamic stability on metoprolol
-
-
Date of Service: May 24, 2024
CC / HPI / ROS
-
Chief Complaint:
JOJO
gapped metabolic acidosis
History of Present Illness:
Hemodynamically stable
Creatinine down to 2.1 BUN down to 62
Metabolic acidosis worsening with serum bicarbonate level 14
Review of Systems:
Nonoliguric
Weights increase
No change in shortness of breath which is chronic
Labs
-
Labs:
WBC 5.1 10^3/uL (4.8-10.8) 05/24/24 07:39
RBC 3.15 10^6/uL (4.20-5.40) L 05/24/24 07:39
Hgb 10.2 g/dL (12.0-16.0) L 05/24/24 07:39
Hct 31.9 % (37.0-47.0) L 05/24/24 07:39
Plt Count 152 10^3/uL (130-400) 05/24/24 07:39
Sodium 136 mmol/L (135-145) 05/24/24 07:39
Potassium 4.0 mmol/L (3.5-5.1) 05/24/24 07:39
Chloride 107 mmol/L (98-107) 05/24/24 07:39
Carbon Dioxide 14 mmol/L (22-30) L* 05/24/24 07:39
BUN 62 mg/dl (7-17) H 05/24/24 07:39
Creatinine 2.1 mg/dL (0.6-1.0) H 05/24/24 07:39
eGFR 23.38 05/24/24 07:39
Glucose 77 mg/dl (70-99) 05/24/24 07:39
Calcium 9.0 mg/dl (8.4-10.2) 05/24/24 07:39
Agw-C-Gwtegztqxvc Pept 3060 pg/ml 05/23/24 04:48
Albumin 4.2 g/dl (3.5-5.0) 05/23/24 00:46
Physical Exam
-
Vital Signs:
Vital Signs
Temp Pulse Resp BP Pulse Ox
98 F 92 19 125/74 97
05/24/24 08:40 05/24/24 09:22 05/24/24 08:40 05/24/24 09:22 05/24/24 08:40
Cardiovascular:: Regular rate and rhythm
Respiratory:: Bilateral: Coarse
Lung Excursion:: Normal
Abdomen:: Nontender and Soft
Bowel Sounds:: Normal
Extremity Edema:: +1: Bilateral: (trace edema)
Rockwell Catheter: No
--- NOTE | 2024-05-24 10:59 | W.PN.HOSP.TC ---
Today's Communication/Plan
-
add sodium bicarb and follow AM labs
appreciate renal recs
follow for clinical hemorrhoidal/rectal bleeding while on IV heparin and coumadin bridge. if bleeds inpatient, procedural intervention Sunday. appreciate CRS.
Assessment / Plan
Assessment / Plan
Assessment:
Recurrent bright red blood per rectum, exacerbated by Coumadin (elevated INR level)
Chronic blood loss anemia
- Suspected hemorrhoidal origin again
- noted recent Colonoscopy with small polyps and hemorrhoids (internal).
- recommended last admit Metamucil + prn HC cream - patient did not recall such recommendations
- colorectal consulted; observing for bleeding while on IV heparin (none so far). Will now observe with coumadin bridging. If inpatient bleeding, then will have procedural intervention (banding) Sunday.
- monitor Hb, stable
JOJO on CKD stage 3b
gapped metabolic acidosis
- suspected pre-renal
- Cr 2.1 today
- holding diuretics; resume when cleared by Nephrology. no overt signs of CHF by exam/imaging
- follow bladder scans
- Nephrology following
- sodium bicarb added
Atrial fibrillation on chronic anticoagulation
Supratherapeutic INR on Coumadin
- Coumadin held and s/p Vitamin K and K-Centra
- continue IV heparin - requires intensive monitoring of PTTs. Resume Coumadin as 1mg tonight and bridge to INR goal 2-3. Required bridging last admission due to high risk.
- continue BB
Congestive heart failure with preserved EF
- holding diuretics; resume when cleared by Nephrology.
- monitor weights, I/Os
- continue BB
Essential HTN
- continue BB
Type 2 DM
- continue SSI for now
- recent A1C: 6.4%
DVT ppx: SCDs for now
Code: DNR/DNI
Anticipated Discharge: > 48 hours
Subjective/Interval History
-
Date of Service: May 24, 2024
no bleeding overnight on IV heparin drip
Hb 10.2
Objective Data
-
Labs:
Laboratory Results
05/23/24 05/24/24 05/24/24
22:50 07:39 07:39
WBC 5.1
Hgb 10.2 L
Hct 31.9 L
Plt Count 152
PT Cancelled 18.1 H
INR Cancelled
APTT > 200 H*
Sodium
Potassium
Chloride
Carbon Dioxide
BUN
Creatinine
Glucose
Calcium
05/24/24 05/24/24
07:39 13:30
WBC
Hgb
Hct
Plt Count
PT
INR 1.47
APTT 167.0 H* Pending
Sodium 136
Potassium 4.0
Chloride 107
Carbon Dioxide 14 L*
BUN 62 H
Creatinine 2.1 H
Glucose 77
Calcium 9.0
Vital Signs:
Vital Signs
Temp Pulse Resp BP Pulse Ox
98 F 92 19 125/74 97
05/24/24 08:40 05/24/24 09:22 05/24/24 08:40 05/24/24 09:22 05/24/24 08:40
I&O
05/23/24 05/24/24 05/25/24
06:59 06:59 06:59
Intake Total 798 / 798
Output Total 400 / 400
Balance 398 / 398
Physical Exam
-
General: No Apparent Distress
HEENT: Normocephalic and Atraumatic
Respiratory: Negative Wheezes
Cardiac: Regular Rhythm and S1/S2
GI: Soft and Nontender
Musculoskeletal: No Edema
Neuro: AO x 3
Hematologic / Lymphatic: No Lymphadenopathy
Psych: Calm
Data Reviewed
-
Total Time Spent with Patient (in minutes): 51
Labs: Labs Reviewed by me
[2024-05-24 12:42] LABS: Glucose - Point of Care 170 mg/dl (70-99)
[2024-05-24 12:46] VITALS: BP 125/80
[2024-05-24] MEDS: NOVOLOG FLEXPEN-LOW RESISTANCE 1 UNITS SC (13:39)
[2024-05-24 14:58] LABS: APTT 153.2 Sec (23.4-35.0)
[2024-05-24] MEDS: SODIUM BICARBONATE 650 MG PO ×2 (15:53→20:37)
[2024-05-24 17:20] LABS: Glucose - Point of Care 131 mg/dl (70-99)
[2024-05-24] MEDS: LIPITOR 40 MG PO (17:21)
[2024-05-24] MEDS: COUMADIN 1 MG PO (18:02)
[2024-05-24 19:32] VITALS: BP 121/69
[2024-05-24] MEDS: AMBIEN 5 MG PO (20:36)
[2024-05-24 21:25] LABS: Glucose - Point of Care 167 mg/dl (70-99)
[2024-05-24 23:04] LABS: APTT 71.2 Sec (23.4-35.0)
[2024-05-24 23:18] VITALS: BP 129/70
[2024-05-25 03:31] VITALS: BP 115/77
[2024-05-25 05:49] LABS: Lactic Acid 1.1 mmol/L (0.7-2.0)
[2024-05-25 05:55] LABS: PT 17.4 Sec (11.4-14.6)
[2024-05-25 05:57] LABS: APTT 102.2 Sec (23.4-35.0)
[2024-05-25 06:00] VITALS: BMI 31.1
[2024-05-25 06:00] LABS: Hematocrit 31.5 % (37.0-47.0); Hemoglobin 10.3 g/dL (12.0-16.0); Mean Corp Hgb Conc. 32.7 g/dL (33.0-37.0); Mean Corpuscular Hgb 32.8 pg (27.0-31.0); Mean Corpuscular Volume 100.3 fL (81.0-99.0); Mean Platelet Volume 11.1 fL (7.4-10.4); Platelet Count 136 10^3/uL (130-400); Red Blood Cell Count 3.14 10^6/uL (4.20-5.40); Red Cell Dist. Width 15.9 % (11.5-14.5); White Blood Cell Count 4.2 10^3/uL (4.8-10.8)
[2024-05-25 06:24] LABS: Blood Urea Nitrogen 66 mg/dl (7-17); Carbon Dioxide 16 mmol/L (22-30); Chloride 101 mmol/L (98-107); Estimated Creatinine Clearance 23 ml/min; Glucose 113 mg/dl (70-99); Potassium 4.4 mmol/L (3.5-5.1); Sodium 132 mmol/L (135-145); eGFR 24.79
[2024-05-25 07:47] LABS: Glucose - Point of Care 114 mg/dl (70-99)
[2024-05-25 07:56] VITALS: BP 122/80
[2024-05-25] MEDS: NOVOLOG FLEXPEN-LOW RESISTANCE SC ×2 (08:12→13:26)
[2024-05-25] MEDS: METAMUCIL, KONSYL 1 PACKET PO (08:13)
[2024-05-25] MEDS: TOPROL XL 25 MG PO ×2 (08:13→21:12)
[2024-05-25] MEDS: SODIUM BICARBONATE 650 MG PO ×3 (08:13→21:11)
[2024-05-25] MEDS: FEOSOL 325 MG PO (08:14)
[2024-05-25] MEDS: PROTONIX 40 MG PO ×2 (08:14→21:12)
[2024-05-25] MEDS: ROCEPHIN 1000 MG IV (08:14)
[2024-05-25] MEDS: DESENEX/MITRAZOL/ZEASORB 1 APPLIC TOPICAL ×2 (08:14→21:11)
[2024-05-25] MEDS: STERILE WATER FOR INJECTION 10 ML IV (08:14)
[2024-05-25] MEDS: COLACE 100 MG PO (08:14)
--- NOTE | 2024-05-25 09:35 | W.PN.NEPH.PH ---
Today's Communication / Plan
-
add back torsemide
Assessment/Plan
-
Impression:
Bright red blood per rectum
Acute kidney injury (2.8)
CKD stage IIIb with baseline creatinine 1.7
Metabolic acidosis (gapped)
Atrial fibrillation on chronic anticoagulation
Hypertension
Diabetes
Congestive heart failure with preserved EF
Valvular heart disease (hx of mechanical valve replacement)
CAD with history of CABG
ICD
Plan:
JOJO:
-Strongly suspect acute kidney injury is related to prerenal stimulus from GI bleeding versus diuretic use
-Creatinine improved from 2.8 down to 2 with improving BUN at 66
-Curiously, her weights are actually up from discharge. Did not examine overtly volume overloaded since last admission
-Currently withholding diuretics, chest x-ray without overt congestive heart failure, continue to follow i/os and daily weights, weights elevated and serum sodium dropping
-will add back torsemide today
-Gapped metabolic acidosis present since last admission, maintain sodium bicarbonate tablets his bicarb upt to 16
-Has maintained hemodynamic stability on metoprolol
-
-
Date of Service: May 25, 2024
CC / HPI / ROS
-
Chief Complaint:
JOJO
gapped metabolic acidosis
History of Present Illness:
Hemodynamically stable
Creatinine down to 2 BUN 66
Metabolic acidosis improved with serum bicarbonate level 16 after sodium bicarbonate tablets
Review of Systems:
Nonoliguric
Weights increase
No change in shortness of breath which is chronic
Labs
-
Labs:
WBC 4.2 10^3/uL (4.8-10.8) L 05/25/24 05:24
RBC 3.14 10^6/uL (4.20-5.40) L 05/25/24 05:24
Hgb 10.3 g/dL (12.0-16.0) L 05/25/24 05:24
Hct 31.5 % (37.0-47.0) L 05/25/24 05:24
Plt Count 136 10^3/uL (130-400) 05/25/24 05:24
Sodium 132 mmol/L (135-145) L 05/25/24 05:24
Potassium 4.4 mmol/L (3.5-5.1) 05/25/24 05:24
Chloride 101 mmol/L (98-107) 05/25/24 05:24
Carbon Dioxide 16 mmol/L (22-30) L 05/25/24 05:24
BUN 66 mg/dl (7-17) H 05/25/24 05:24
Creatinine 2.0 mg/dL (0.6-1.0) H 05/25/24 05:24
eGFR 24.79 05/25/24 05:24
Glucose 113 mg/dl (70-99) H 05/25/24 05:24
Calcium 9.0 mg/dl (8.4-10.2) 05/25/24 05:24
Thv-X-Tqzzykovntk Pept 3060 pg/ml 05/23/24 04:48
Albumin 4.2 g/dl (3.5-5.0) 05/23/24 00:46
Physical Exam
-
Vital Signs:
Vital Signs
Temp Pulse Resp BP Pulse Ox
98.2 F 95 20 122/80 95
05/25/24 07:56 05/25/24 08:13 05/25/24 07:56 05/25/24 08:13 05/25/24 07:56
Cardiovascular:: Regular rate and rhythm
Respiratory:: Bilateral: Coarse
Lung Excursion:: Normal
Abdomen:: Nontender and Soft
Bowel Sounds:: Normal
Extremity Edema:: +1: Bilateral: (trace edema)
Rockwell Catheter: No
--- NOTE | 2024-05-25 10:06 | W.PN.HOSP.TC ---
Today's Communication/Plan
-
see note
Assessment / Plan
Assessment / Plan
Recurrent bright red blood per rectum, exacerbated by Coumadin (elevated INR level)
Chronic blood loss anemia
- Suspected hemorrhoidal origin again
- noted recent Colonoscopy with small polyps and hemorrhoids (internal).
- recommended last admit Metamucil + prn HC cream - patient did not recall such recommendations
- Currently being slowly bridged back to warfarin. INR subtherapeutic. At admission patient INR was 7 with home dose of warfarin of 2-1/2 mg every afternoon. Currently be bridged with 1 mg every afternoon daily. Will adjust based on INR response
tomorrow (day 3)
- No further reported episodes of bright red blood in stool. CRS following for possible need of hemorrhoidal banding if bleeding reoccurs
JOJO on CKD stage 3b
AGMA
- suspected pre-renal in nature from GI bleed versus diuretic use related
- Cr trending down
- Nephrology following input noted. Patient being resumed back on torsemide.
- Maintain on sodium bicarb due to chronic AGMA with CKD
Atrial fibrillation on chronic anticoagulation
Supratherapeutic INR on Coumadin
- Coumadin held and s/p Vitamin K and K-Centra
-Resume a lower dose of warfarin, further dose adjustment based on response
- continue BB
Congestive heart failure with preserved EF
- monitor weights, I/Os
- continue BB
-Resume back on torsemide today, monitor weight/creatinine/input output
Wheezing on exam
-Denies having COPD/asthma/bronchiectasis h/o
-not a smoker
-CXR clear
-Maintain on IS and xopenox inhaler
-Diuretic being resumed today as above and should help if any minor pulmonary edema causing bronchospasms.
-Will benefit with outpatient pulmonology follow-up and PFT
Essential HTN
- BB may need to be adjusted if wheezing not improved.
Type 2 DM
- continue SSI for now
- recent A1C: 6.4%
DVT ppx: SCDs for now
Code: DNR/DNI
Anticipated Discharge: 24 - 48 hours
Subjective/Interval History
-
Date of Service: May 25, 2024
Denies of having any further blood in stool
No abdominal pain/nausea/vomiting
Having some expiratory wheezing, not dyspneic
Objective Data
-
Labs:
Laboratory Results
05/24/24 05/25/24 05/25/24
22:45 05:24 12:00
WBC 4.2 L
Hgb 10.3 L
Hct 31.5 L
Plt Count 136
PT 17.4 H
INR 1.40
APTT 71.2 H 102.2 H Pending
Sodium 132 L
Potassium 4.4
Chloride 101
Carbon Dioxide 16 L
BUN 66 H
Creatinine 2.0 H
Glucose 113 H
Calcium 9.0
Vital Signs:
Vital Signs
Temp Pulse Resp BP Pulse Ox
98.2 F 95 20 122/80 95
05/25/24 07:56 05/25/24 08:13 05/25/24 07:56 05/25/24 08:13 05/25/24 07:56
I&O
05/24/24 05/25/24 05/26/24
06:59 06:59 06:59
Intake Total 798 / 798 1440 / 1440
Output Total 400 / 400 100 / 100
Balance 398 / 398 1340 / 1340
Review of Systems
-
Respiratory: Reports Cough and Wheezing; Denies Trouble Breathing
Cardiac: Reports No Symptoms
Abdomen/GI: Reports No Symptoms
Physical Exam
-
General: Comfortable and Obese
HEENT: Negative Oxygen
Respiratory: Wheezes; Negative Rhonchi or Crackles
Cardiac: Regular Rhythm and S1/S2; Negative Murmur or Rub
GI: Soft, Nontender and Nondistended
Musculoskeletal: No Edema
Neuro: Awake, Alert, Oriented, No Motor Deficits and Nonfocal/Grossly Intact
Psych: Calm
[2024-05-25] MEDS: DEMADEX 40 MG PO (10:58)
[2024-05-25] MEDS: HEPARIN 25000 UNITS/250 ML IV (11:01)
[2024-05-25 12:20] VITALS: BP 127/79
[2024-05-25 12:20] LABS: APTT 104.9 Sec (23.4-35.0)
[2024-05-25 13:07] LABS: Glucose - Point of Care 106 mg/dl (70-99)
[2024-05-25 16:28] VITALS: BP 120/88
[2024-05-25 17:48] LABS: Glucose - Point of Care 158 mg/dl (70-99)
[2024-05-25] MEDS: COUMADIN 1 MG PO (18:10)
[2024-05-25] MEDS: NOVOLOG FLEXPEN-LOW RESISTANCE 1 UNITS SC (18:10)
[2024-05-25] MEDS: LIPITOR 40 MG PO (18:10)
[2024-05-25 20:15] VITALS: BP 125/68
[2024-05-25] MEDS: AMBIEN 5 MG PO (21:11)
[2024-05-25 22:04] LABS: Glucose - Point of Care 170 mg/dl (70-99)
[2024-05-25 23:10] VITALS: BP 130/79
[2024-05-26 03:58] VITALS: BP 128/73
[2024-05-26 06:00] VITALS: BMI 30.4
[2024-05-26 07:07] LABS: Glucose - Point of Care 113 mg/dl (70-99)
[2024-05-26 07:24] VITALS: BP 137/69
[2024-05-26] MEDS: SODIUM BICARBONATE 650 MG PO (07:41)
[2024-05-26] MEDS: COLACE 100 MG PO (07:42)
[2024-05-26] MEDS: PROTONIX 40 MG PO ×2 (07:42→20:45)
[2024-05-26] MEDS: FEOSOL 325 MG PO (07:42)
[2024-05-26] MEDS: TOPROL XL 25 MG PO ×2 (07:42→20:44)
[2024-05-26] MEDS: METAMUCIL, KONSYL 1 PACKET PO (07:43)
[2024-05-26] MEDS: DEMADEX 40 MG PO (07:43)
[2024-05-26] MEDS: ROCEPHIN 1000 MG IV (07:45)
[2024-05-26] MEDS: STERILE WATER FOR INJECTION 10 ML IV (07:47)
[2024-05-26] MEDS: NOVOLOG FLEXPEN-LOW RESISTANCE SC (08:02)
[2024-05-26] MEDS: DESENEX/MITRAZOL/ZEASORB 1 APPLIC TOPICAL ×2 (08:08→20:45)
[2024-05-26 08:35] LABS: APTT 96.6 Sec (23.4-35.0)
--- NOTE | 2024-05-26 08:53 | PN.CDI ---
CDI
- -
CDI:
Physician Documentation Request
Admit Date: 05/23/24 03:15
Dear Doctor Rober,
Patient admitted with rectal bleeding.
05/23 Nursing skin assessment, 'Stage 1 bilateral heel pressure injuries, POA.'
Physician documentation of the type and location of wounds is required for compliant documentation. Based on the above clinical findings and your assessment, please provide the following in your progress note:
Type (etiology) of ulcer/wound:
- Pressure (decubitus) ulcer
- Other
- Unable to determine
For a pressure ulcer, please also include the stage* of the ulcer:
- Stage 1 - Skin intact, non-blanchable redness
- Stage 2 - Partial thickness loss of dermis, includes intact or open blister
- Stage 3 - Full thickness tissue not including bone, tendon or muscle
- Stage 4 - Full thickness tissue loss, including exposed bone, tendon or muscle
- Unstageable - Full thickness loss in which the base of the ulcer is covered by slough (yellow, saxena, olmedo, green or brown) and/or eschar (saxena, brown or black) in the wound bed.
- Unable to determine
Use of terms such as suspected, likely, concern for, or probable (associated with a specific diagnosis that is being evaluated, monitored, or treated as if it exists) are acceptable and can be coded in the inpatient setting, when documented at the
time of discharge.
Thank you,
Kayleigh PORTER,RN,CCDS
CDI Specialist
Available via tiger text
Please use your independent medical judgment in providing your response.
*Source: National Pressure Ulcer Advisory Panel (NPUAP)
[2024-05-26 09:02] LABS: INR 1.41; PT 17.8 Sec (11.4-14.6)
--- NOTE | 2024-05-26 09:37 | W.PN.HOSP.TC ---
Today's Communication/Plan
-
see note
check BMP
continue warfarin loading
Assessment / Plan
Assessment / Plan
Recurrent bright red blood per rectum, exacerbated by Coumadin (elevated INR level)
Chronic blood loss anemia
- Suspected hemorrhoidal origin again
- noted recent Colonoscopy with small polyps and hemorrhoids (internal).
- recommended last admit Metamucil + prn HC cream - patient did not recall such recommendations
- Currently being slowly bridged back to warfarin. INR subtherapeutic. At admission patient INR was 7 with home dose of warfarin of 2-1/2 mg every afternoon. Currently be bridged with 1 mg every afternoon daily.
- Day 3 of warfarin 1mg > 1mg > INR 1.4 today - will give 2mg today
- No reported blood in stool
JOJO on CKD stage 3b
AGMA
- suspected pre-renal in nature from GI bleed versus diuretic use related
- Cr trending down
- Nephrology following input noted. Patient being resumed back on torsemide.
- Maintain on sodium bicarb due to chronic AGMA with CKD
Atrial fibrillation on chronic anticoagulation
Supratherapeutic INR on Coumadin
- Coumadin held and s/p Vitamin K and K-Centra
-Resume a lower dose of warfarin, further dose adjustment based on response
- continue BB
Congestive heart failure with preserved EF
- monitor weights, I/Os
- continue BB
-Resume back on torsemide today, monitor weight/creatinine/input output
Wheezing on exam
-Denies having COPD/asthma/bronchiectasis h/o
-not a smoker
-CXR clear
-Maintain on IS and xopenox inhaler
-Diuretic being resumed today as above and should help if any minor pulmonary edema causing bronchospasms.
-Will benefit with outpatient pulmonology follow-up and PFT
Essential HTN
- BB may need to be adjusted if wheezing not improved.
Type 2 DM
- continue SSI for now
- recent A1C: 6.4%
DVT ppx: SCDs for now
Code: DNR/DNI
Anticipated Discharge: 24 - 48 hours
Subjective/Interval History
-
Date of Service: May 26, 2024
no bleeding overnight
continues to have expiratory wheezing
no dyspnea
some dry cough
Objective Data
-
Labs:
Laboratory Results
05/26/24 05/26/24
06:41 08:23
PT 17.8 H Cancelled
INR 1.41 Cancelled
APTT 96.6 H
Vital Signs:
Vital Signs
Temp Pulse Resp BP Pulse Ox
98.7 F 83 14 137/69 99
05/26/24 07:24 05/26/24 07:43 05/26/24 07:24 05/26/24 07:43 05/26/24 07:24
I&O
05/25/24 05/26/24 05/27/24
06:59 06:59 06:59
Intake Total 1440 / 1440 720 / 720
Output Total 100 / 100
Balance 1340 / 1340 720 / 720
Review of Systems
-
Respiratory: Reports Cough and Wheezing; Denies Trouble Breathing
Cardiac: Reports No Symptoms
Abdomen/GI: Reports No Symptoms; Denies Bloody Stools
Physical Exam
-
General: Comfortable and Obese
HEENT: Negative Oxygen
Respiratory: Wheezes; Negative Rhonchi or Crackles
Cardiac: Regular Rhythm and S1/S2; Negative Murmur or Rub
GI: Soft, Nontender and Nondistended
Musculoskeletal: No Edema
Neuro: Awake, Alert, Oriented, No Motor Deficits and Nonfocal/Grossly Intact
Psych: Calm
[2024-05-26 10:43] LABS: Blood Urea Nitrogen 64 mg/dl (7-17); Calcium 9.1 mg/dl (8.4-10.2); Carbon Dioxide 16 mmol/L (22-30); Chloride 100 mmol/L (98-107); Estimated Creatinine Clearance 26 ml/min; Glucose 140 mg/dl (70-99); Potassium 3.8 mmol/L (3.5-5.1); Sodium 133 mmol/L (135-145); eGFR 28.13
--- NOTE | 2024-05-26 11:13 | W.PN.CRS1 ---
Today's Communication / Plan
-
As below
Assessment/Plan
-
78-year-old female with PMH of CAD (s/p CABG, MVR), A-fib (on warfarin), HFpEF, HTN, HLD, DM, CKD who presented with rectal bleeding, known to have internal hemorrhoids; bleeding stopped after INR corrected
AFVSS
Hb has been stable, no CBC today
� Continue regular diet
�Continue fiber supplement daily; continue bowel regimen to avoid constipation (recommend Colace twice daily and MiraLAX as needed)
�Recommend iron infusions versus oral, as oral can cause significant constipation
� Okay to continue AC, bridging to warfarin per hospitalist
� Remainder of care per hospitalist; colorectal surgery to sign off; follow-up with Dr. Ludwig in 2 to 4 weeks as needed for hemorrhoids
Subjective Data
Subjective Data
Date of Service: May 26, 2024
No further bleeding since last week, tolerating a diet.
Objective Data
-
Vital Signs
Temp Pulse Resp BP Pulse Ox
98.7 F 83 14 137/69 99
05/26/24 07:24 05/26/24 07:43 05/26/24 07:24 05/26/24 07:43 05/26/24 07:24
Intake & Output
05/25/24 05/26/24 05/27/24
06:59 06:59 06:59
Intake Total 1440 / 1440 720 / 720
Output Total 100 / 100
Balance 1340 / 1340 720 / 720
Intake:
Oral fluids 1440 / 1440 720 / 720
Output:
Urine, Voided 100 / 100
Other:
Number of approximated SMALL 3
amounts of urine
Number of approximated MODERATE 2 2
amounts of urine
Lab Results
05/25/24 05:24
05/26/24 09:51
Physical Exam
-
General: No Acute Distress and AOx3
HEENT: Grossly Normal
Abdomen: Soft, Non Distended and Non Tender
Skin: Warm and Dry
--- NOTE | 2024-05-26 11:16 | W.PN.NEPH.PH ---
Today's Communication / Plan
-
bicarb
Assessment/Plan
-
Impression:
Bright red blood per rectum
Acute kidney injury (2.8)
CKD stage IIIb with baseline creatinine 1.7
Metabolic acidosis (gapped)
Atrial fibrillation on chronic anticoagulation
Hypertension
Diabetes
Congestive heart failure with preserved EF
Valvular heart disease (hx of mechanical valve replacement)
CAD with history of CABG
ICD
Plan:
follow BMP
continue torsemide
increase bicarb to 1300 BID
follow hgb
-
-
Date of Service: May 26, 2024
CC / HPI / ROS
-
Chief Complaint:
JOJO
gapped metabolic acidosis
History of Present Illness:
Hemodynamically stable
Creatinine down to 1.8
Na stable 133
Metabolic acidosis stable with serum bicarbonate level 16
weights down back on torsemide
Review of Systems:
Nonoliguric
No change in shortness of breath which is chronic
Labs
-
Labs:
WBC 4.2 10^3/uL (4.8-10.8) L 05/25/24 05:24
RBC 3.14 10^6/uL (4.20-5.40) L 05/25/24 05:24
Hgb 10.3 g/dL (12.0-16.0) L 05/25/24 05:24
Hct 31.5 % (37.0-47.0) L 05/25/24 05:24
Plt Count 136 10^3/uL (130-400) 05/25/24 05:24
Sodium 133 mmol/L (135-145) L 05/26/24 09:51
Potassium 3.8 mmol/L (3.5-5.1) 05/26/24 09:51
Chloride 100 mmol/L (98-107) 05/26/24 09:51
Carbon Dioxide 16 mmol/L (22-30) L 05/26/24 09:51
BUN 64 mg/dl (7-17) H 05/26/24 09:51
Creatinine 1.8 mg/dL (0.6-1.0) H 05/26/24 09:51
eGFR 28.13 05/26/24 09:51
Glucose 140 mg/dl (70-99) H 05/26/24 09:51
Calcium 9.1 mg/dl (8.4-10.2) 05/26/24 09:51
Kuy-L-Ergtoiwsvot Pept 3060 pg/ml 05/23/24 04:48
Albumin 4.2 g/dl (3.5-5.0) 05/23/24 00:46
Physical Exam
-
Vital Signs:
Vital Signs
Temp Pulse Resp BP Pulse Ox
98.7 F 83 14 137/69 99
05/26/24 07:24 05/26/24 07:43 05/26/24 07:24 05/26/24 07:43 05/26/24 07:24
Cardiovascular:: Regular rate and rhythm
Respiratory:: Bilateral: Coarse
Lung Excursion:: Normal
Abdomen:: Nontender and Soft
Bowel Sounds:: Normal
Extremity Edema:: +1: Bilateral:
[2024-05-26 11:25] LABS: Glucose - Point of Care 152 mg/dl (70-99)
[2024-05-26] MEDS: NOVOLOG FLEXPEN-LOW RESISTANCE 1 UNITS SC (11:34)
--- NOTE | 2024-05-26 13:39 | CM ---
CM following re: discharge planning.
Reviewed pt's chart, met with pt.
PT and OT evaluations noted - SNF level of care recommended. Pt is aware, politely declined SNF level of care and expressed her desire to return back home with [facility]. Per MD, pt's supports pt's plan. CM left a message to pt's to
confirm the discharge plan.
D/C plan: home with [facility] and family support.
CM will follow to assist pt with discharge plan updates as hospitalization progresses.
[2024-05-26 15:18] VITALS: BP 120/80
[2024-05-26 16:10] LABS: Glucose - Point of Care 207 mg/dl (70-99)
[2024-05-26] MEDS: COUMADIN 2 MG PO (17:24)
[2024-05-26] MEDS: LIPITOR 40 MG PO (17:24)
[2024-05-26] MEDS: NOVOLOG FLEXPEN-LOW RESISTANCE 2 UNITS SC (17:25)
[2024-05-26] MEDS: AMBIEN 5 MG PO (20:45)
[2024-05-26] MEDS: SODIUM BICARBONATE 1300 MG PO (20:45)
[2024-05-26 21:33] LABS: Glucose - Point of Care 132 mg/dl (70-99)
[2024-05-26 23:10] VITALS: BP 110/68
[2024-05-27 06:00] VITALS: BMI 29.7
[2024-05-27 06:43] LABS: Hematocrit 30.2 % (37.0-47.0); Mean Corp Hgb Conc. 33.1 g/dL (33.0-37.0); Mean Corpuscular Hgb 32.7 pg (27.0-31.0); Mean Corpuscular Volume 98.7 fL (81.0-99.0); Mean Platelet Volume 10.6 fL (7.4-10.4); Platelet Count 108 10^3/uL (130-400); Red Blood Cell Count 3.06 10^6/uL (4.20-5.40); Red Cell Dist. Width 16.2 % (11.5-14.5); White Blood Cell Count 3.7 10^3/uL (4.8-10.8)
[2024-05-27 06:44] LABS: INR 1.58; PT 19.4 Sec (11.4-14.6)
[2024-05-27 07:00] LABS: Blood Urea Nitrogen 60 mg/dl (7-17); Calcium 8.9 mg/dl (8.4-10.2); Carbon Dioxide 21 mmol/L (22-30); Chloride 101 mmol/L (98-107); Estimated Creatinine Clearance 28 ml/min; Glucose 100 mg/dl (70-99); Potassium 3.4 mmol/L (3.5-5.1); Sodium 135 mmol/L (135-145)
[2024-05-27 08:06] VITALS: BP 133/97
[2024-05-27 08:26] LABS: Glucose - Point of Care 105 mg/dl (70-99)
[2024-05-27] MEDS: SODIUM BICARBONATE 1300 MG PO ×2 (08:26→23:08)
[2024-05-27] MEDS: TOPROL XL 25 MG PO ×2 (08:27→23:09)
[2024-05-27] MEDS: DEMADEX 40 MG PO (08:28)
[2024-05-27] MEDS: COLACE 100 MG PO (08:29)
[2024-05-27] MEDS: PROTONIX 40 MG PO ×2 (08:29→23:07)
[2024-05-27] MEDS: FEOSOL 325 MG PO (08:29)
[2024-05-27] MEDS: DESENEX/MITRAZOL/ZEASORB 1 APPLIC TOPICAL ×2 (08:30→23:06)
[2024-05-27] MEDS: METAMUCIL, KONSYL 1 PACKET PO (08:31)
[2024-05-27] MEDS: NOVOLOG FLEXPEN-LOW RESISTANCE SC ×2 (08:32→13:48)
--- NOTE | 2024-05-27 09:46 | W.PN.NEPH.PH ---
Today's Communication / Plan
-
follow BMP
Assessment/Plan
-
Impression:
Bright red blood per rectum
Acute kidney injury (2.8)
CKD stage IIIb with baseline creatinine 1.7
Metabolic acidosis (gapped)
Atrial fibrillation on chronic anticoagulation
Hypertension
Diabetes
Congestive heart failure with preserved EF
Valvular heart disease (hx of mechanical valve replacement)
CAD with history of CABG
ICD
Plan:
follow BMP
replete K
continue torsemide
continue bicarb
follow hgb
await INR
-
-
Date of Service: May 27, 2024
CC / HPI / ROS
-
Chief Complaint:
JOJO
gapped metabolic acidosis
History of Present Illness:
Hemodynamically stable
Creatinine down to 1.8
Na stable 133
Metabolic acidosis stable with serum bicarbonate level 16
weights down back on torsemide
Review of Systems:
Nonoliguric
No change in shortness of breath which is chronic
Labs
-
Labs:
WBC 3.7 10^3/uL (4.8-10.8) L 05/27/24 05:44
RBC 3.06 10^6/uL (4.20-5.40) L 05/27/24 05:44
Hgb 10.0 g/dL (12.0-16.0) L 05/27/24 05:44
Hct 30.2 % (37.0-47.0) L 05/27/24 05:44
Plt Count 108 10^3/uL (130-400) L D 05/27/24 05:44
Sodium 135 mmol/L (135-145) 05/27/24 05:44
Potassium 3.4 mmol/L (3.5-5.1) L 05/27/24 05:44
Chloride 101 mmol/L (98-107) 05/27/24 05:44
Carbon Dioxide 21 mmol/L (22-30) L 05/27/24 05:44
BUN 60 mg/dl (7-17) H 05/27/24 05:44
Creatinine 1.6 mg/dL (0.6-1.0) H 05/27/24 05:44
eGFR 32.40 05/27/24 05:44
Glucose 100 mg/dl (70-99) H 05/27/24 05:44
Calcium 8.9 mg/dl (8.4-10.2) 05/27/24 05:44
Tun-D-Rxpsslkuasb Pept 3060 pg/ml 05/23/24 04:48
Albumin 4.2 g/dl (3.5-5.0) 05/23/24 00:46
Physical Exam
-
Vital Signs:
Vital Signs
Temp Pulse Resp BP Pulse Ox
97.9 F 94 17 133/97 97
05/27/24 08:06 05/27/24 08:28 05/27/24 08:06 05/27/24 08:28 05/27/24 08:06
Cardiovascular:: Regular rate and rhythm
Respiratory:: Bilateral: Coarse
Lung Excursion:: Normal
Abdomen:: Nontender and Soft
Bowel Sounds:: Normal
Extremity Edema:: +2: Bilateral:
[2024-05-27 09:52] VITALS: PULSE 97; O2SAT 98
[2024-05-27] MEDS: KCL 40 MEQ PO (10:31)
[2024-05-27 11:43] LABS: Glucose - Point of Care 141 mg/dl (70-99)
--- NOTE | 2024-05-27 12:48 | CM ---
CM following re: discharge planning.
Reviewed pt's chart, met with pt.
Pt is aware that PT and OT recommend SNF level of care and she politely declined SNF level of care and expressed her desire to return back home with [facility]. Pt stated her will continue caring for her at home and pt stated she will have
[facility].
IMM reviewed, placed on chart, pt has a copy.
[facility] liaison following.
Please fax discharge instructions to [facility] at [phone]
D/C plan: home with [facility] and family support.
CM will follow to assist pt with discharge plan updates as hospitalization progresses.
--- NOTE | 2024-05-27 13:31 | W.PN.HOSP.TC ---
Today's Communication/Plan
-
see note
Assessment / Plan
Assessment / Plan
Recurrent bright red blood per rectum, exacerbated by Coumadin (elevated INR level)
Chronic blood loss anemia
- Suspected hemorrhoidal origin again
- noted recent Colonoscopy with small polyps and hemorrhoids (internal).
- recommended last admit Metamucil + prn HC cream - patient did not recall such recommendations
- Currently being slowly bridged back to warfarin. INR subtherapeutic. At admission patient INR was 7 with home dose of warfarin of 2-1/2 mg every afternoon. Currently be bridged with 1 mg every afternoon daily.
- Day 3 of warfarin 1mg > 1mg > 2mg > INR 1.58 today - repeat warfarin 2mg to be given today
- No reported blood in stool overnight again,
JOJO on CKD stage 3b
AGMA
- suspected pre-renal in nature from GI bleed versus diuretic use related
- Cr trending down
- Nephrology following input noted. Patient being resumed back on torsemide.
- Maintain on sodium bicarb due to chronic AGMA with CKD
Atrial fibrillation on chronic anticoagulation
Supratherapeutic INR on Coumadin
- Coumadin held and s/p Vitamin K and K-Centra
-Resumed a lower dose of warfarin, further dose adjustment based on response
- continue BB
Thrombocytopenia
-new, monitor
-if drops further will need to check for HIT
Stage 1 bilateral heel pressure injuries, POA
-wound care
Congestive heart failure with preserved EF
- monitor weights, I/Os
- continue BB
-Resume back on torsemide today, monitor weight/creatinine/input output
Wheezing on exam
-Denies having COPD/asthma/bronchiectasis h/o
-not a smoker
-CXR clear
-Maintain on IS and xopenox inhaler
-Diuretic being resumed today as above and should help if any minor pulmonary edema causing bronchospasms.
-Will benefit with outpatient pulmonology follow-up and PFT
Essential HTN
- BB may need to be adjusted if wheezing not improved.
Type 2 DM
- continue SSI for now
- recent A1C: 6.4%
DVT ppx: SCDs for now
Code: DNR/DNI
Anticipated Discharge: 24 - 48 hours
Subjective/Interval History
-
Date of Service: May 27, 2024
No bleeding per rectum
No other issues reported
Objective Data
-
Labs:
Laboratory Results
05/27/24
05:44
WBC 3.7 L
Hgb 10.0 L
Hct 30.2 L
Plt Count 108 L D
PT 19.4 H
INR 1.58
Sodium 135
Potassium 3.4 L
Chloride 101
Carbon Dioxide 21 L
BUN 60 H
Creatinine 1.6 H
Glucose 100 H
Calcium 8.9
Vital Signs:
Vital Signs
Temp Pulse Resp BP Pulse Ox
97.9 F 94 17 133/97 97
05/27/24 08:06 05/27/24 08:28 05/27/24 08:06 05/27/24 08:28 05/27/24 08:06
I&O
05/26/24 05/27/24 05/28/24
06:59 06:59 06:59
Intake Total 720 / 720 480 / 480
Balance 720 / 720 480 / 480
Review of Systems
-
Respiratory: Reports No Symptoms
Cardiac: Reports No Symptoms
Abdomen/GI: Reports No Symptoms
Physical Exam
-
General: Comfortable and Obese
HEENT: Negative Oxygen
Respiratory: Wheezes; Negative Rhonchi or Crackles
Cardiac: Regular Rhythm and S1/S2; Negative Murmur or Rub
GI: Soft, Nontender and Nondistended
Musculoskeletal: No Edema
Neuro: Awake, Alert, Oriented, No Motor Deficits and Nonfocal/Grossly Intact
Psych: Calm
[2024-05-27 14:59] VITALS: BP 117/75
[2024-05-27 16:26] LABS: APTT 84.6 Sec (23.4-35.0)
[2024-05-27 17:13] LABS: Glucose - Point of Care 192 mg/dl (70-99)
[2024-05-27] MEDS: NOVOLOG FLEXPEN-LOW RESISTANCE 1 UNITS SC (17:31)
[2024-05-27] MEDS: LIPITOR 40 MG PO (17:33)
[2024-05-27] MEDS: COUMADIN 2 MG PO (17:47)
[2024-05-27] MEDS: HEPARIN 25000 UNITS/250 ML IV (19:32)
[2024-05-27 22:50] VITALS: BP 138/68
[2024-05-27] MEDS: AMBIEN 5 MG PO (23:08)
[2024-05-27 23:18] LABS: Glucose - Point of Care 144 mg/dl (70-99)
[2024-05-27] MEDS: XOPENEX 0.63 MG INHALANT SOLUTION INH (23:40)
[2024-05-28 05:06] VITALS: BMI 29.9
[2024-05-28 06:17] LABS: Hematocrit 32.7 % (37.0-47.0); Hemoglobin 10.8 g/dL (12.0-16.0); Mean Corpuscular Hgb 32.9 pg (27.0-31.0); Mean Corpuscular Volume 99.7 fL (81.0-99.0); Mean Platelet Volume 11.4 fL (7.4-10.4); Platelet Count 109 10^3/uL (130-400); Red Blood Cell Count 3.28 10^6/uL (4.20-5.40); Red Cell Dist. Width 15.9 % (11.5-14.5); White Blood Cell Count 4.3 10^3/uL (4.8-10.8)
[2024-05-28 06:31] LABS: INR 1.68
[2024-05-28 06:33] LABS: APTT 111.2 Sec (23.4-35.0)
[2024-05-28 06:40] LABS: Blood Urea Nitrogen 56 mg/dl (7-17); Calcium 9.4 mg/dl (8.4-10.2); Carbon Dioxide 20 mmol/L (22-30); Chloride 102 mmol/L (98-107); Estimated Creatinine Clearance 30 ml/min; Glucose 121 mg/dl (70-99); Sodium 136 mmol/L (135-145); eGFR 35.01
[2024-05-28 07:20] VITALS: BP 139/78
[2024-05-28 07:48] LABS: Glucose - Point of Care 115 mg/dl (70-99)
[2024-05-28] MEDS: NOVOLOG FLEXPEN-LOW RESISTANCE SC (08:12)
[2024-05-28] MEDS: PROTONIX 40 MG PO ×2 (08:12→20:46)
[2024-05-28] MEDS: TOPROL XL 25 MG PO ×2 (08:12→20:47)
[2024-05-28] MEDS: SODIUM BICARBONATE 1300 MG PO ×2 (08:12→20:46)
[2024-05-28] MEDS: DEMADEX 40 MG PO (08:12)
[2024-05-28] MEDS: COLACE 100 MG PO (08:12)
[2024-05-28] MEDS: FEOSOL 325 MG PO (08:13)
[2024-05-28] MEDS: METAMUCIL, KONSYL 1 PACKET PO (08:14)
[2024-05-28] MEDS: DESENEX/MITRAZOL/ZEASORB 1 APPLIC TOPICAL ×2 (08:16→20:47)
[2024-05-28 10:21] VITALS: BP 122/85; PULSE 90; O2SAT 96
--- NOTE | 2024-05-28 10:39 | W.PN.NEPH.PH ---
Today's Communication / Plan
-
follow bmp
maintain torsemide
Assessment/Plan
-
Impression:
Bright red blood per rectum
Acute kidney injury (2.8)
CKD stage IIIb with baseline creatinine 1.7
Metabolic acidosis (gapped)
Atrial fibrillation on chronic anticoagulation
Hypertension
Diabetes
Congestive heart failure with preserved EF
Valvular heart disease (hx of mechanical valve replacement)
CAD with history of CABG
ICD
Plan:
-Creatinine is better than baseline at 1.4
-follow BMP
-continue torsemide
-continue bicarb
-follow hgb
-
-
-
Date of Service: May 28, 2024
CC / HPI / ROS
-
Chief Complaint:
JOJO
gapped metabolic acidosis
History of Present Illness:
Hemodynamically stable
Creatinine down to 1.5
Na stable 136
Metabolic acidosis stable with serum bicarbonate level 16
weights down back on torsemide
Review of Systems:
Nonoliguric
No change in shortness of breath which is chronic
Labs
-
Labs:
WBC 4.3 10^3/uL (4.8-10.8) L 05/28/24 05:49
RBC 3.28 10^6/uL (4.20-5.40) L 05/28/24 05:49
Hgb 10.8 g/dL (12.0-16.0) L 05/28/24 05:49
Hct 32.7 % (37.0-47.0) L 05/28/24 05:49
Plt Count 109 10^3/uL (130-400) L 05/28/24 05:49
Sodium 136 mmol/L (135-145) 05/28/24 05:49
Potassium 4.0 mmol/L (3.5-5.1) 05/28/24 05:49
Chloride 102 mmol/L (98-107) 05/28/24 05:49
Carbon Dioxide 20 mmol/L (22-30) L 05/28/24 05:49
BUN 56 mg/dl (7-17) H 05/28/24 05:49
Creatinine 1.5 mg/dL (0.6-1.0) H 05/28/24 05:49
eGFR 35.01 05/28/24 05:49
Glucose 121 mg/dl (70-99) H 05/28/24 05:49
Calcium 9.4 mg/dl (8.4-10.2) 05/28/24 05:49
Tkg-K-Hixdhesftxx Pept 3060 pg/ml 05/23/24 04:48
Albumin 4.2 g/dl (3.5-5.0) 05/23/24 00:46
Physical Exam
-
Vital Signs:
Vital Signs
Temp Pulse Resp BP Pulse Ox
97.8 F 99 18 139/78 96
05/28/24 07:20 05/28/24 08:12 05/28/24 07:20 05/28/24 08:12 05/28/24 07:20
Cardiovascular:: Regular rate and rhythm
Respiratory:: Bilateral: Coarse
Lung Excursion:: Normal
Abdomen:: Nontender and Soft
Bowel Sounds:: Normal
Extremity Edema:: +2: Bilateral:
[2024-05-28 11:52] LABS: Glucose - Point of Care 160 mg/dl (70-99)
[2024-05-28] MEDS: NOVOLOG FLEXPEN-LOW RESISTANCE 1 UNITS SC (12:24)
[2024-05-28 13:39] LABS: APTT 90.5 Sec (23.4-35.0)
--- NOTE | 2024-05-28 14:06 | W.PN.HOSP.TC ---
Today's Communication/Plan
-
warfarin 2.5mg today
check INR tomorrow
Assessment / Plan
Assessment / Plan
Recurrent bright red blood per rectum, exacerbated by Coumadin (elevated INR level)
Chronic blood loss anemia
- Suspected hemorrhoidal origin again
- noted recent Colonoscopy with small polyps and hemorrhoids (internal).
- recommended last admit Metamucil + prn HC cream - patient did not recall such recommendations
- Currently being slowly bridged back to warfarin. INR subtherapeutic. At admission patient INR was 7 with home dose of warfarin of 2-1/2 mg every afternoon. Currently be bridged with 1 mg every afternoon daily.
- Ongoing warfarin loading 1mg > 1mg > 2mg > 2mg > INR 1.68 today - providing warfarin 2.5mg today
- No reported blood in stool overnight again,
JOJO on CKD stage 3b
AGMA
- suspected pre-renal in nature from GI bleed versus diuretic use related
- Cr trending down
- Nephrology following input noted. Patient being resumed back on torsemide.
- Maintain on sodium bicarb due to chronic AGMA with CKD
Atrial fibrillation on chronic anticoagulation
Supratherapeutic INR on Coumadin
- Coumadin held and s/p Vitamin K and K-Centra
-Resumed a lower dose of warfarin, further dose adjustment based on response
- continue BB
Thrombocytopenia
-new, monitor
-if drops further will need to check for HIT
Stage 1 bilateral heel pressure injuries, POA
-wound care
Congestive heart failure with preserved EF
- monitor weights, I/Os
- continue BB
-Resume back on torsemide today, monitor weight/creatinine/input output
Wheezing on exam
-Denies having COPD/asthma/bronchiectasis h/o
-not a smoker
-CXR clear
-Maintain on IS and xopenox inhaler
-Diuretic being resumed today as above and should help if any minor pulmonary edema causing bronchospasms.
-Will benefit with outpatient pulmonology follow-up and PFT
Essential HTN
- BB may need to be adjusted if wheezing not improved.
Type 2 DM
- continue SSI for now
- recent A1C: 6.4%
DVT ppx: SCDs for now
Code: DNR/DNI
Anticipated Discharge: 24 - 48 hours
Subjective/Interval History
-
Date of Service: May 28, 2024
no reported blood in stool
no other acute issues
Objective Data
-
Labs:
Laboratory Results
05/28/24 05/28/24 05/28/24
05:49 12:59 18:59
WBC 4.3 L
Hgb 10.8 L
Hct 32.7 L
Plt Count 109 L
PT 20.0 H
INR 1.68
APTT 111.2 H 90.5 H Pending
Sodium 136
Potassium 4.0
Chloride 102
Carbon Dioxide 20 L
BUN 56 H
Creatinine 1.5 H
Glucose 121 H
Calcium 9.4
Vital Signs:
Vital Signs
Temp Pulse Resp BP Pulse Ox
97.8 F 99 18 139/78 96
05/28/24 07:20 05/28/24 08:12 05/28/24 07:20 05/28/24 08:12 05/28/24 07:20
I&O
05/27/24 05/28/24 05/29/24
06:59 06:59 06:59
Intake Total 480 / 480 1160 / 1160
Output Total 300 / 300
Balance 480 / 480 860 / 860
Review of Systems
-
Respiratory: Reports No Symptoms
Cardiac: Reports No Symptoms
Abdomen/GI: Reports No Symptoms
Physical Exam
-
General: Comfortable and Obese
HEENT: Negative Oxygen
Respiratory: Wheezes; Negative Rhonchi
Cardiac: Regular Rhythm and S1/S2; Negative Murmur or Rub
GI: Soft, Nontender and Nondistended
Musculoskeletal: No Edema
Neuro: Awake, Alert, Oriented, No Motor Deficits and Nonfocal/Grossly Intact
Psych: Calm
--- NOTE | 2024-05-28 14:16 | PN.CDI ---
CDI
- -
CDI:
Physician Documentation Request
Admit Date: 05/23/24 03:15
Dear Doctor Rober,
Patient admitted with recurrent bright red blood per rectum, exacerbated by Coumadin.
05/27 WBC 3.7, RBC 3.06 and platelet count 108.
05/28 WBC 4.3, RBC 3.28 and platelet count 109.
Based on the above, please clarify in the progress notes, the appropriate diagnosis, if significant, that supports the above abnormalities and additional evaluation, monitoring and/or treatment rendered:
Pancytopenia (please specify etiology, if known)
Insignificant abnormal lab findings
Other
Use of terms such as suspected, likely, concern for, or probable (associated with a specific diagnosis that is being evaluated, monitored, or treated as if it exists) are acceptable and can be coded in the inpatient setting, when documented at the
time of discharge.
Thank you,
Kayleigh PORTER,RN,CCDS
CDI Specialist
Available via [place] text
Please use your independent medical judgment in providing your response.
[2024-05-28] MEDS: XOPENEX 0.63 MG INHALANT SOLUTION INH (15:12)
[2024-05-28 15:45] VITALS: BP 142/83
[2024-05-28 16:42] LABS: Glucose - Point of Care 233 mg/dl (70-99)
[2024-05-28] MEDS: NOVOLOG FLEXPEN-LOW RESISTANCE 2 UNITS SC (16:44)
[2024-05-28] MEDS: COUMADIN 2.5 MG PO (17:18)
[2024-05-28] MEDS: LIPITOR 40 MG PO (17:19)
[2024-05-28 19:51] LABS: APTT 54.8 Sec (23.4-35.0)
[2024-05-28 22:01] LABS: Glucose - Point of Care 134 mg/dl (70-99)
[2024-05-28] MEDS: AMBIEN 5 MG PO (22:07)
[2024-05-28 22:40] VITALS: BP 128/85
[2024-05-29 03:58] LABS: APTT 154.3 Sec (23.4-35.0)
[2024-05-29 06:30] LABS: Hematocrit 32.7 % (37.0-47.0); Hemoglobin 10.8 g/dL (12.0-16.0); Red Blood Cell Count 3.27 10^6/uL (4.20-5.40); Red Cell Dist. Width 16.2 % (11.5-14.5); White Blood Cell Count 4.4 10^3/uL (4.8-10.8)
[2024-05-29 06:45] LABS: Blood Urea Nitrogen 49 mg/dl (7-17); Calcium 9.3 mg/dl (8.4-10.2); Carbon Dioxide 21 mmol/L (22-30); Chloride 100 mmol/L (98-107); Estimated Creatinine Clearance 30 ml/min; Glucose 113 mg/dl (70-99); Potassium 3.7 mmol/L (3.5-5.1); Sodium 136 mmol/L (135-145); eGFR 35.01
[2024-05-29 07:10] VITALS: BP 141/83
[2024-05-29 07:56] LABS: Mean Platelet Volume 11.5 fL (7.4-10.4)
[2024-05-29 07:57] LABS: Platelet Count 99 10^3/uL (130-400)
[2024-05-29] MEDS: TOPROL XL 25 MG PO ×2 (08:08→21:14)
[2024-05-29] MEDS: FEOSOL 325 MG PO (08:08)
[2024-05-29] MEDS: PROTONIX 40 MG PO ×2 (08:08→21:15)
[2024-05-29] MEDS: COLACE 100 MG PO (08:08)
[2024-05-29] MEDS: SODIUM BICARBONATE 1300 MG PO ×2 (08:09→21:15)
[2024-05-29] MEDS: DEMADEX 40 MG PO (08:09)
[2024-05-29] MEDS: METAMUCIL, KONSYL 1 PACKET PO (08:09)
[2024-05-29] MEDS: DESENEX/MITRAZOL/ZEASORB 1 APPLIC TOPICAL ×2 (08:10→21:15)
[2024-05-29] MEDS: NOVOLOG FLEXPEN-LOW RESISTANCE SC ×2 (08:13→11:22)
[2024-05-29 08:14] LABS: Glucose - Point of Care 122 mg/dl (70-99)
[2024-05-29] MEDS: XOPENEX 0.63 MG INHALANT SOLUTION INH (09:43)
[2024-05-29 11:19] LABS: Glucose - Point of Care 150 mg/dl (70-99)
[2024-05-29 11:20] LABS: INR 1.72; PT 20.6 Sec (11.4-14.6)
[2024-05-29 11:21] LABS: APTT 75.7 Sec (23.4-35.0)
--- NOTE | 2024-05-29 11:45 | W.PN.HOSP.TC ---
Today's Communication/Plan
-
increasing warfarin dose
f/u INR
Assessment / Plan
Assessment / Plan
Recurrent bright red blood per rectum, exacerbated by Coumadin (elevated INR level)
Chronic blood loss anemia
- Suspected hemorrhoidal origin again
- noted recent Colonoscopy with small polyps and hemorrhoids (internal).
- recommended last admit Metamucil + prn HC cream - patient did not recall such recommendations
- Currently being slowly bridged back to warfarin. INR subtherapeutic. At admission patient INR was 7 with home dose of warfarin of 2-1/2 mg every afternoon. Currently be bridged with 1 mg every afternoon daily.
- Ongoing warfarin loading 1mg > 1mg > 2mg > 2mg > 2.5mg > INR 1.72 today - providing warfarin 3 mg today
- No reported blood in stool overnight again,
JOJO on CKD stage 3b
AGMA
- suspected pre-renal in nature from GI bleed versus diuretic use related
- Cr trending down
- Nephrology following input noted. Patient being resumed back on torsemide.
- Maintain on sodium bicarb due to chronic AGMA with CKD
Atrial fibrillation on chronic anticoagulation
Supratherapeutic INR on Coumadin
- Coumadin held and s/p Vitamin K and K-Centra
-Resumed a lower dose of warfarin, further dose adjustment based on response
- continue BB
Thrombocytopenia
-new, monitor
-if drops further will need to check for HIT
Stage 1 bilateral heel pressure injuries, POA
-wound care
Congestive heart failure with preserved EF
- monitor weights, I/Os
- continue BB
-Resume back on torsemide today, monitor weight/creatinine/input output
Wheezing on exam
-Denies having COPD/asthma/bronchiectasis h/o
-not a smoker
-CXR clear
-Maintain on IS and xopenox inhaler
-Diuretic being resumed today as above and should help if any minor pulmonary edema causing bronchospasms.
-Will benefit with outpatient pulmonology follow-up and PFT
Essential HTN
- BB may need to be adjusted if wheezing not improved.
Type 2 DM
- continue SSI for now
- recent A1C: 6.4%
DVT ppx: SCDs for now
Code: DNR/DNI
Anticipated Discharge: Within 24 hours
Subjective/Interval History
-
Date of Service: May 29, 2024
no new issues overnight
patient is somnolent
Objective Data
-
Labs:
Laboratory Results
05/29/24 05/29/24 05/29/24
03:08 05:45 11:02
WBC 4.4 L
Hgb 10.8 L
Hct 32.7 L
Plt Count 99 L
PT 20.6 H
INR 1.72
APTT 154.3 H* 75.7 H
Sodium 136
Potassium 3.7
Chloride 100
Carbon Dioxide 21 L
BUN 49 H
Creatinine 1.5 H
Glucose 113 H
Calcium 9.3
05/29/24
17:02
WBC
Hgb
Hct
Plt Count
PT
INR
APTT Pending
Sodium
Potassium
Chloride
Carbon Dioxide
BUN
Creatinine
Glucose
Calcium
Vital Signs:
Vital Signs
Temp Pulse Resp BP Pulse Ox
98.0 F 99 18 141/83 97
05/29/24 07:10 05/29/24 09:45 05/29/24 09:45 05/29/24 08:09 05/29/24 09:45
I&O
05/28/24 05/29/24 05/30/24
06:59 06:59 06:59
Intake Total 1160 / 1160 1279.3 / 1279.3
Output Total 300 / 300 50 / 50
Balance 860 / 860 1279.3 / 1279.3 -50 / -50
Review of Systems
-
Respiratory: Reports No Symptoms
Cardiac: Reports No Symptoms
Abdomen/GI: Reports No Symptoms
Physical Exam
-
General: Comfortable and Obese
HEENT: Negative Oxygen
Respiratory: Wheezes; Negative Rhonchi
Cardiac: Regular Rhythm and S1/S2; Negative Murmur or Rub
GI: Soft, Nontender and Nondistended
Musculoskeletal: No Edema
Neuro: Awake, Alert, Oriented, No Motor Deficits and Nonfocal/Grossly Intact
Psych: Calm
--- NOTE | 2024-05-29 11:48 | W.PN.NEPH.PH ---
Today's Communication / Plan
-
Follow BMP
Maintain diuretics and sodium bicarb
Assessment/Plan
-
Impression:
Bright red blood per rectum
Acute kidney injury (2.8)
CKD stage IIIb with baseline creatinine 1.7
Metabolic acidosis (gapped)
Atrial fibrillation on chronic anticoagulation
Hypertension
Diabetes
Congestive heart failure with preserved EF
Valvular heart disease (hx of mechanical valve replacement)
CAD with history of CABG
ICD
Plan:
-Creatinine is better than baseline at 1.5
-follow BMP
-continue torsemide
-continue bicarb, metabolic acidosis stable
-follow hgb
-
-
-
Date of Service: May 29, 2024
CC / HPI / ROS
-
Chief Complaint:
JOJO
gapped metabolic acidosis
History of Present Illness:
Hemodynamically stable
Creatinine down to 1.5
Na stable 136
Metabolic acidosis stable with serum bicarbonate level 21
weights down back on torsemide
Review of Systems:
Nonoliguric
No change in shortness of breath which is chronic
Weights up a little
Labs
-
Labs:
WBC 4.4 10^3/uL (4.8-10.8) L 05/29/24 05:45
RBC 3.27 10^6/uL (4.20-5.40) L 05/29/24 05:45
Hgb 10.8 g/dL (12.0-16.0) L 05/29/24 05:45
Hct 32.7 % (37.0-47.0) L 05/29/24 05:45
Plt Count 99 10^3/uL (130-400) L 05/29/24 05:45
Sodium 136 mmol/L (135-145) 05/29/24 05:45
Potassium 3.7 mmol/L (3.5-5.1) 05/29/24 05:45
Chloride 100 mmol/L (98-107) 05/29/24 05:45
Carbon Dioxide 21 mmol/L (22-30) L 05/29/24 05:45
BUN 49 mg/dl (7-17) H 05/29/24 05:45
Creatinine 1.5 mg/dL (0.6-1.0) H 05/29/24 05:45
eGFR 35.01 05/29/24 05:45
Glucose 113 mg/dl (70-99) H 05/29/24 05:45
Calcium 9.3 mg/dl (8.4-10.2) 05/29/24 05:45
Eok-R-Hjccoqssymp Pept 3060 pg/ml 05/23/24 04:48
Albumin 4.2 g/dl (3.5-5.0) 05/23/24 00:46
Physical Exam
-
Vital Signs:
Vital Signs
Temp Pulse Resp BP Pulse Ox
98.0 F 99 18 141/83 97
05/29/24 07:10 05/29/24 09:45 05/29/24 09:45 05/29/24 08:09 05/29/24 09:45
Cardiovascular:: Regular rate and rhythm
Respiratory:: Bilateral: Coarse
Lung Excursion:: Normal
Abdomen:: Nontender and Soft
Bowel Sounds:: Normal
Extremity Edema:: +2: Bilateral:
[2024-05-29 13:34] VITALS: BMI 30.2
[2024-05-29 15:10] VITALS: BP 137/91
[2024-05-29 16:24] LABS: Glucose - Point of Care 182 mg/dl (70-99)
[2024-05-29] MEDS: NOVOLOG FLEXPEN-LOW RESISTANCE 1 UNITS SC (16:24)
[2024-05-29] MEDS: COUMADIN 3 MG PO (17:26)
[2024-05-29] MEDS: LIPITOR 40 MG PO (17:26)
[2024-05-29 17:55] LABS: APTT 66.9 Sec (23.4-35.0)
[2024-05-29 21:10] LABS: Glucose - Point of Care 204 mg/dl (70-99)
[2024-05-29] MEDS: AMBIEN 5 MG PO (22:10)
[2024-05-29 23:28] VITALS: BP 147/88
[2024-05-30 01:28] LABS: APTT 97.6 Sec (23.4-35.0)
[2024-05-30 06:03] VITALS: BMI 30.3
[2024-05-30 07:10] VITALS: BP 124/80
[2024-05-30 08:11] LABS: Glucose - Point of Care 123 mg/dl (70-99)
[2024-05-30] MEDS: NOVOLOG FLEXPEN-LOW RESISTANCE SC (08:12)
[2024-05-30] MEDS: COLACE 100 MG PO (08:13)
[2024-05-30] MEDS: SODIUM BICARBONATE 1300 MG PO ×2 (08:13→21:15)
[2024-05-30] MEDS: PROTONIX 40 MG PO ×2 (08:13→21:15)
[2024-05-30] MEDS: FEOSOL 325 MG PO (08:13)
[2024-05-30] MEDS: DEMADEX 40 MG PO (08:13)
[2024-05-30] MEDS: TOPROL XL 25 MG PO ×2 (08:13→21:16)
[2024-05-30] MEDS: METAMUCIL, KONSYL 1 PACKET PO (08:14)
[2024-05-30] MEDS: DESENEX/MITRAZOL/ZEASORB 1 APPLIC TOPICAL ×2 (08:14→21:15)
[2024-05-30 08:21] LABS: INR 1.74; PT 20.5 Sec (11.4-14.6)
[2024-05-30 08:22] LABS: APTT 91.5 Sec (23.4-35.0)
[2024-05-30] MEDS: HEPARIN 25000 UNITS/250 ML IV (08:47)
[2024-05-30 08:57] LABS: Blood Urea Nitrogen 48 mg/dl (7-17); Calcium 9.5 mg/dl (8.4-10.2); Carbon Dioxide 20 mmol/L (22-30); Chloride 98 mmol/L (98-107); Estimated Creatinine Clearance 29 ml/min; Glucose 117 mg/dl (70-99); Potassium 3.9 mmol/L (3.5-5.1); Sodium 133 mmol/L (135-145)
--- NOTE | 2024-05-30 09:59 | W.PN.NEPH.PH ---
Today's Communication / Plan
-
follow BMP
Assessment/Plan
-
Impression:
Bright red blood per rectum
Acute kidney injury (2.8)
CKD stage IIIb with baseline creatinine 1.7
Metabolic acidosis (gapped)
Atrial fibrillation on chronic anticoagulation
Hypertension
Diabetes
Congestive heart failure with preserved EF
Valvular heart disease (hx of mechanical valve replacement)
CAD with history of CABG
ICD
Plan:
follow BMP
continue torsemide daily as bicarb dose is now higher
-
-
Date of Service: May 30, 2024
CC / HPI / ROS
-
Chief Complaint:
JOJO
gapped metabolic acidosis
History of Present Illness:
Hemodynamically stable
Creatinine stable at 1.6
Na down to 133
Metabolic acidosis stable with serum bicarbonate level 20
Review of Systems:
Nonoliguric
No change in shortness of breath which is chronic
Labs
-
Labs:
WBC 4.4 10^3/uL (4.8-10.8) L 05/29/24 05:45
RBC 3.27 10^6/uL (4.20-5.40) L 05/29/24 05:45
Hgb 10.8 g/dL (12.0-16.0) L 05/29/24 05:45
Hct 32.7 % (37.0-47.0) L 05/29/24 05:45
Plt Count 99 10^3/uL (130-400) L 05/29/24 05:45
Sodium 133 mmol/L (135-145) L 05/30/24 07:57
Potassium 3.9 mmol/L (3.5-5.1) 05/30/24 07:57
Chloride 98 mmol/L (98-107) 05/30/24 07:57
Carbon Dioxide 20 mmol/L (22-30) L 05/30/24 07:57
BUN 48 mg/dl (7-17) H 05/30/24 07:57
Creatinine 1.6 mg/dL (0.6-1.0) H 05/30/24 07:57
eGFR 32.40 05/30/24 07:57
Glucose 117 mg/dl (70-99) H 05/30/24 07:57
Calcium 9.5 mg/dl (8.4-10.2) 05/30/24 07:57
Geb-K-Juvalbliree Pept 3060 pg/ml 05/23/24 04:48
Albumin 4.2 g/dl (3.5-5.0) 05/23/24 00:46
Physical Exam
-
Vital Signs:
Vital Signs
Temp Pulse Resp BP Pulse Ox
97.5 F 102 17 124/80 96
05/30/24 07:10 05/30/24 08:13 05/30/24 07:10 05/30/24 08:13 05/30/24 07:10
Cardiovascular:: Regular rate and rhythm
Respiratory:: Bilateral: Coarse
Lung Excursion:: Normal
Abdomen:: Nontender and Soft
Bowel Sounds:: Normal
Extremity Edema:: +1: Bilateral:
[2024-05-30 11:44] LABS: Glucose - Point of Care 187 mg/dl (70-99)
[2024-05-30] MEDS: NOVOLOG FLEXPEN-LOW RESISTANCE 1 UNITS SC ×2 (12:20→17:32)
[2024-05-30 15:05] VITALS: BP 110/70
--- NOTE | 2024-05-30 15:35 | W.PN.HOSP.TC ---
Addendum entered and electronically signed by Jayant Richter MD 05/30/24 16:48:
[facility] only
Original Note:
Today's Communication/Plan
-
continue f/u INR
continue warfarin loading
Assessment / Plan
Assessment / Plan
Recurrent bright red blood per rectum, exacerbated by Coumadin (elevated INR level)
Chronic blood loss anemia
- Suspected hemorrhoidal origin again
- noted recent Colonoscopy with small polyps and hemorrhoids (internal).
- recommended last admit Metamucil + prn HC cream - patient did not recall such recommendations
- Currently being slowly bridged back to warfarin. INR subtherapeutic. At admission patient INR was 7 with home dose of warfarin of 2-1/2 mg every afternoon. Currently be bridged with 1 mg every afternoon daily.
- Ongoing warfarin loading 1mg > 1mg > 2mg > 2mg > 2.5mg > 3mg > INR 1.75 today - giving 4 mg dose today
- No reported blood in stool overnight again,
JOJO on CKD stage 3b
AGMA
- suspected pre-renal in nature from GI bleed versus diuretic use related
- Cr trending down
- Nephrology following input noted. Patient being resumed back on torsemide.
- Maintain on sodium bicarb due to chronic AGMA with CKD
Atrial fibrillation on chronic anticoagulation
Supratherapeutic INR on Coumadin
- Coumadin held and s/p Vitamin K and K-Centra
-Resumed a lower dose of warfarin, further dose adjustment based on response
- continue BB
Thrombocytopenia
-new, monitor
-if drops further will need to check for HIT
Stage 1 bilateral heel pressure injuries, POA
-wound care
Congestive heart failure with preserved EF
- monitor weights, I/Os
- continue BB
-Resume back on torsemide today, monitor weight/creatinine/input output
Wheezing on exam
-Denies having COPD/asthma/bronchiectasis h/o
-not a smoker
-CXR clear
-Maintain on IS and xopenox inhaler
-Diuretic being resumed today as above and should help if any minor pulmonary edema causing bronchospasms.
-Will benefit with outpatient pulmonology follow-up and PFT
Essential HTN
- BB may need to be adjusted if wheezing not improved.
Type 2 DM
- continue SSI for now
- recent A1C: 6.4%
DVT ppx: SCDs for now
Code: DNR/DNI
Anticipated Discharge: 24 - 48 hours
Subjective/Interval History
-
Date of Service: May 30, 2024
Patient remains somnolent/fatigued/tired
No other issues overnight
Denies of any bleeding diathesis
Objective Data
-
Labs:
Laboratory Results
05/30/24 05/30/24 05/30/24
07:57 07:57 07:57
PT Cancelled 20.5 H
INR Cancelled 1.74
APTT 91.5 H
Sodium 133 L
Potassium 3.9
Chloride 98
Carbon Dioxide 20 L
BUN 48 H
Creatinine 1.6 H
Glucose 117 H
Calcium 9.5
Vital Signs:
Vital Signs
Temp Pulse Resp BP Pulse Ox
97.7 F 94 16 110/70 99
05/30/24 15:05 05/30/24 15:05 05/30/24 15:05 05/30/24 15:05 05/30/24 15:05
I&O
05/29/24 05/30/24 05/31/24
06:59 06:59 06:59
Intake Total 1279.3 / 1279.3 1253.3 / 1253.3
Output Total 350 / 350
Balance 1279.3 / 1279.3 903.3 / 903.3
Review of Systems
-
Respiratory: Reports No Symptoms
Cardiac: Reports No Symptoms
Abdomen/GI: Reports No Symptoms
Physical Exam
-
General: Comfortable and Obese
HEENT: Negative Oxygen
Respiratory: Wheezes; Negative Rhonchi
Cardiac: Regular Rhythm and S1/S2; Negative Murmur or Rub
GI: Soft, Nontender and Nondistended
Musculoskeletal: No Edema
Neuro: Awake, Alert, Oriented, No Motor Deficits and Nonfocal/Grossly Intact
Psych: Calm
[2024-05-30 16:38] LABS: Glucose - Point of Care 198 mg/dl (70-99)
[2024-05-30] MEDS: COUMADIN 4 MG PO (17:32)
[2024-05-30] MEDS: LIPITOR 40 MG PO (17:32)
[2024-05-30] MEDS: XOPENEX 0.63 MG INHALANT SOLUTION INH (18:08)
[2024-05-30] MEDS: AMBIEN 5 MG PO (21:16)
[2024-05-30 21:31] LABS: Glucose - Point of Care 161 mg/dl (70-99)
[2024-05-30 23:00] VITALS: BP 138/77
[2024-05-31 06:00] VITALS: BMI 30.6
[2024-05-31 06:43] LABS: INR 1.96; PT 22.5 Sec (11.4-14.6)
[2024-05-31 06:49] LABS: Hematocrit 32.3 % (37.0-47.0); Hemoglobin 10.6 g/dL (12.0-16.0); Mean Corp Hgb Conc. 32.8 g/dL (33.0-37.0); Mean Corpuscular Hgb 32.7 pg (27.0-31.0); Mean Corpuscular Volume 99.7 fL (81.0-99.0); Mean Platelet Volume 11.6 fL (7.4-10.4); Platelet Count 105 10^3/uL (130-400); Red Blood Cell Count 3.24 10^6/uL (4.20-5.40); Red Cell Dist. Width 16.2 % (11.5-14.5); White Blood Cell Count 4.8 10^3/uL (4.8-10.8)
[2024-05-31 07:02] LABS: Blood Urea Nitrogen 47 mg/dl (7-17); Calcium 9.3 mg/dl (8.4-10.2); Carbon Dioxide 22 mmol/L (22-30); Chloride 98 mmol/L (98-107); Estimated Creatinine Clearance 29 ml/min; Glucose 128 mg/dl (70-99); Potassium 3.6 mmol/L (3.5-5.1); Sodium 133 mmol/L (135-145)
[2024-05-31 07:20] VITALS: BP 143/89
[2024-05-31 07:31] LABS: APTT 108.6 Sec (23.4-35.0)
[2024-05-31 08:12] LABS: Glucose - Point of Care 123 mg/dl (70-99)
[2024-05-31] MEDS: NOVOLOG FLEXPEN-LOW RESISTANCE SC (08:37)
[2024-05-31] MEDS: PROTONIX 40 MG PO ×2 (08:38→20:41)
[2024-05-31] MEDS: TOPROL XL 25 MG PO ×2 (08:38→20:41)
[2024-05-31] MEDS: SODIUM BICARBONATE 1300 MG PO ×2 (08:38→20:41)
[2024-05-31] MEDS: FEOSOL 325 MG PO (08:38)
[2024-05-31] MEDS: DEMADEX 40 MG PO (08:38)
[2024-05-31] MEDS: COLACE 100 MG PO (08:43)
[2024-05-31] MEDS: METAMUCIL, KONSYL 1 PACKET PO (08:43)
[2024-05-31] MEDS: DESENEX/MITRAZOL/ZEASORB 1 APPLIC TOPICAL ×2 (08:46→20:43)
--- NOTE | 2024-05-31 10:39 | W.PN.NEPH.PH ---
Today's Communication / Plan
-
FR
Assessment/Plan
-
Impression:
Bright red blood per rectum
Acute kidney injury (2.8)
CKD stage IIIb with baseline creatinine 1.7
Metabolic acidosis (gapped)
Atrial fibrillation on chronic anticoagulation
Hypertension
Diabetes
Congestive heart failure with preserved EF
Valvular heart disease (hx of mechanical valve replacement)
CAD with history of CABG
ICD
Plan:
follow BMP
continue torsemide daily as bicarb dose is now higher
FR to 1400
-
-
Date of Service: May 31, 2024
CC / HPI / ROS
-
Chief Complaint:
JOJO
gapped metabolic acidosis
History of Present Illness:
Hemodynamically stable
Creatinine stable at 1.6
Na stable at 133 low
Metabolic acidosis better at 22
Review of Systems:
Nonoliguric
No change in shortness of breath which is chronic
Labs
-
Labs:
WBC 4.8 10^3/uL (4.8-10.8) 05/31/24 06:12
RBC 3.24 10^6/uL (4.20-5.40) L 05/31/24 06:12
Hgb 10.6 g/dL (12.0-16.0) L 05/31/24 06:12
Hct 32.3 % (37.0-47.0) L 05/31/24 06:12
Plt Count 105 10^3/uL (130-400) L 05/31/24 06:12
Sodium 133 mmol/L (135-145) L 05/31/24 06:12
Potassium 3.6 mmol/L (3.5-5.1) 05/31/24 06:12
Chloride 98 mmol/L (98-107) 05/31/24 06:12
Carbon Dioxide 22 mmol/L (22-30) 05/31/24 06:12
BUN 47 mg/dl (7-17) H 05/31/24 06:12
Creatinine 1.6 mg/dL (0.6-1.0) H 05/31/24 06:12
eGFR 32.40 05/31/24 06:12
Glucose 128 mg/dl (70-99) H 05/31/24 06:12
Calcium 9.3 mg/dl (8.4-10.2) 05/31/24 06:12
Gsx-O-Anjqnzoimjr Pept 3060 pg/ml 05/23/24 04:48
Albumin 4.2 g/dl (3.5-5.0) 05/23/24 00:46
Physical Exam
-
Vital Signs:
Vital Signs
Temp Pulse Resp BP Pulse Ox
97.4 F 112 16 143/89 97
05/31/24 07:20 05/31/24 07:20 05/31/24 07:20 05/31/24 07:20 05/31/24 07:20
Cardiovascular:: Regular rate and rhythm
Respiratory:: Bilateral: Coarse
Lung Excursion:: Normal
Abdomen:: Nontender and Soft
Bowel Sounds:: Normal
Extremity Edema:: +1: Bilateral:
[2024-05-31 12:37] LABS: Glucose - Point of Care 198 mg/dl (70-99)
[2024-05-31] MEDS: NOVOLOG FLEXPEN-LOW RESISTANCE 1 UNITS SC ×2 (13:04→17:39)
--- NOTE | 2024-05-31 14:23 | W.PN.HOSP.TC ---
Today's Communication/Plan
-
d/c planning for home
Assessment / Plan
Assessment / Plan
Recurrent bright red blood per rectum, exacerbated by Coumadin (elevated INR level)
Chronic blood loss anemia
- Suspected hemorrhoidal origin again
- noted recent Colonoscopy with small polyps and hemorrhoids (internal).
- recommended last admit Metamucil + prn HC cream - patient did not recall such recommendations
- Currently being slowly bridged back to warfarin. INR subtherapeutic. At admission patient INR was 7 with home dose of warfarin of 2-1/2 mg every afternoon. Currently be bridged with 1 mg every afternoon daily.
- Ongoing warfarin loading 1mg > 1mg > 2mg > 2mg > 2.5mg > 3mg > 4mg > INR 1.96 today > giving 3 mg today
- No reported blood in stool overnight again,
JOJO on CKD stage 3b
AGMA
- suspected pre-renal in nature from GI bleed versus diuretic use related
- Cr trending down
- Nephrology following input noted. Patient being resumed back on torsemide.
- Maintain on sodium bicarb due to chronic AGMA with CKD
Atrial fibrillation on chronic anticoagulation
Supratherapeutic INR on Coumadin
- Coumadin held and s/p Vitamin K and K-Centra
-Resumed a lower dose of warfarin, further dose adjustment based on response
- continue BB
Thrombocytopenia
-new, monitor
-if drops further will need to check for HIT
Stage 1 bilateral heel pressure injuries, POA
-wound care
Congestive heart failure with preserved EF
- monitor weights, I/Os
- continue BB
-Resume back on torsemide today, monitor weight/creatinine/input output
Wheezing on exam
-Denies having COPD/asthma/bronchiectasis h/o
-not a smoker
-CXR clear
-Maintain on IS and xopenox inhaler
-Diuretic being resumed today as above and should help if any minor pulmonary edema causing bronchospasms.
-Will benefit with outpatient pulmonology follow-up and PFT
Essential HTN
- BB may need to be adjusted if wheezing not improved.
Type 2 DM
- continue SSI for now
- recent A1C: 6.4%
DVT ppx: SCDs for now
Code: DNR/DNI
Anticipated Discharge: Within 24 hours
Subjective/Interval History
-
Date of Service: May 31, 2024
no complains overnight
remains wheezing
Objective Data
-
Labs:
Laboratory Results
05/31/24
06:12
WBC 4.8
Hgb 10.6 L
Hct 32.3 L
Plt Count 105 L
PT 22.5 H
INR 1.96
APTT 108.6 H
Sodium 133 L
Potassium 3.6
Chloride 98
Carbon Dioxide 22
BUN 47 H
Creatinine 1.6 H
Glucose 128 H
Calcium 9.3
Vital Signs:
Vital Signs
Temp Pulse Resp BP Pulse Ox
97.4 F 112 16 143/89 97
05/31/24 07:20 05/31/24 07:20 05/31/24 07:20 05/31/24 07:20 05/31/24 08:37
I&O
05/30/24 05/31/24 06/01/24
06:59 06:59 06:59
Intake Total 1253.3 / 1253.3 1473.4 / 1473.4
Output Total 350 / 350
Balance 903.3 / 903.3 1473.4 / 1473.4
Review of Systems
-
Respiratory: Reports No Symptoms
Cardiac: Reports No Symptoms
Abdomen/GI: Reports No Symptoms
Physical Exam
-
General: Comfortable and Obese
HEENT: Negative Oxygen
Respiratory: Clear to Auscultation; Negative Rhonchi
Cardiac: Regular Rhythm and S1/S2; Negative Murmur or Rub
GI: Soft, Nontender and Nondistended
Musculoskeletal: No Edema
Neuro: Awake, Alert, Oriented, No Motor Deficits and Nonfocal/Grossly Intact
Psych: Calm
[2024-05-31] MEDS: XOPENEX 0.63 MG INHALANT SOLUTION INH (14:49)
--- NOTE | 2024-05-31 15:48 | PTCARENOTE ---
patient received breathing treatment for faint expiratory wheezing b/l and increased sob. better after treatment, tolerating diet, transfers to chair with assist 1 with rolling walker, vss, will continue to monitor.
[2024-05-31 15:55] VITALS: BP 141/82
--- NOTE | 2024-05-31 16:55 | PTCARENOTE ---
patient sob again and feels that it is harder to catch breath. +orthopnea. feels though today breathing is worse than yesterday. vss, lungs remains with b/l exp wheezes b/l, frequent cough and expectorating thick saxena secretions (mod amount). Also,
edema is +2 in b/l ankle area. transfered to chair to try and help ease breathing. tiger texted Dr. Richter and he is ordering CXR. also, requesting Mucinex and ?Robitussin. patient and her made aware, will continue to monitor.
[2024-05-31 17:23] LABS: Glucose - Point of Care 198 mg/dl (70-99)
[2024-05-31] MEDS: COUMADIN 3 MG PO (17:39)
[2024-05-31] MEDS: LIPITOR 40 MG PO (17:41)
[2024-05-31 21:24] LABS: Glucose - Point of Care 145 mg/dl (70-99)
[2024-05-31] MEDS: AMBIEN 5 MG PO (21:58)
[2024-05-31 23:00] VITALS: BP 127/87
[2024-06-01 06:00] VITALS: BMI 30.7
[2024-06-01 06:58] LABS: INR 2.44; PT 26.5 Sec (11.4-14.6)
[2024-06-01 07:25] LABS: Blood Urea Nitrogen 50 mg/dl (7-17); Calcium 9.1 mg/dl (8.4-10.2); Carbon Dioxide 22 mmol/L (22-30); Chloride 97 mmol/L (98-107); Estimated Creatinine Clearance 26 ml/min; Glucose 113 mg/dl (70-99); Potassium 3.8 mmol/L (3.5-5.1); Sodium 136 mmol/L (135-145); eGFR 28.13
[2024-06-01 07:59] LABS: Glucose - Point of Care 105 mg/dl (70-99)
[2024-06-01] MEDS: XOPENEX 0.63 MG INHALANT SOLUTION INH (08:10)
[2024-06-01 08:17] VITALS: BP 122/85
[2024-06-01] MEDS: NOVOLOG FLEXPEN-LOW RESISTANCE SC (08:42)
[2024-06-01] MEDS: METAMUCIL, KONSYL 1 PACKET PO (08:51)
[2024-06-01] MEDS: PROTONIX 40 MG PO ×2 (08:51→20:44)
[2024-06-01] MEDS: DESENEX/MITRAZOL/ZEASORB 1 APPLIC TOPICAL ×2 (08:52→20:44)
[2024-06-01] MEDS: FEOSOL 325 MG PO (08:52)
[2024-06-01] MEDS: SODIUM BICARBONATE 1300 MG PO (08:52)
[2024-06-01] MEDS: TOPROL XL 25 MG PO ×2 (08:52→20:44)
[2024-06-01] MEDS: COLACE 100 MG PO (08:52)
[2024-06-01] MEDS: DEMADEX 40 MG PO (08:52)
--- NOTE | 2024-06-01 10:27 | W.PN.NEPH.PH ---
Today's Communication / Plan
-
Decreased bicarbonate
Assessment/Plan
-
Impression:
Bright red blood per rectum
Acute kidney injury (2.8)
CKD stage IIIb with baseline creatinine 1.7
Metabolic acidosis (gapped)
Atrial fibrillation on chronic anticoagulation
Hypertension
Diabetes
Congestive heart failure with preserved EF
Valvular heart disease (hx of mechanical valve replacement)
CAD with history of CABG
ICD
Plan:
follow BMP
continue torsemide daily
Reduce bicarbonate
FR to 1400
-
-
Date of Service: June 01, 2024
CC / HPI / ROS
-
Chief Complaint:
JOJO
gapped metabolic acidosis
History of Present Illness:
Hemodynamically stable
Creatinine worse at 1.8
Sodium up to 136
Metabolic acidosis better at 22
Review of Systems:
Nonoliguric
No change in shortness of breath which is chronic
Weights higher
Labs
-
Labs:
WBC 4.8 10^3/uL (4.8-10.8) 05/31/24 06:12
RBC 3.24 10^6/uL (4.20-5.40) L 05/31/24 06:12
Hgb 10.6 g/dL (12.0-16.0) L 05/31/24 06:12
Hct 32.3 % (37.0-47.0) L 05/31/24 06:12
Plt Count 105 10^3/uL (130-400) L 05/31/24 06:12
Sodium 136 mmol/L (135-145) 06/01/24 06:03
Potassium 3.8 mmol/L (3.5-5.1) 06/01/24 06:03
Chloride 97 mmol/L (98-107) L 06/01/24 06:03
Carbon Dioxide 22 mmol/L (22-30) 06/01/24 06:03
BUN 50 mg/dl (7-17) H 06/01/24 06:03
Creatinine 1.8 mg/dL (0.6-1.0) H 06/01/24 06:03
eGFR 28.13 06/01/24 06:03
Glucose 113 mg/dl (70-99) H 06/01/24 06:03
Calcium 9.1 mg/dl (8.4-10.2) 06/01/24 06:03
Ega-E-Sfatrfhggme Pept 3060 pg/ml 05/23/24 04:48
Albumin 4.2 g/dl (3.5-5.0) 05/23/24 00:46
Physical Exam
-
Vital Signs:
Vital Signs
Temp Pulse Resp BP Pulse Ox
97.6 F 95 16 122/85 96
06/01/24 08:17 06/01/24 08:52 06/01/24 08:17 06/01/24 08:52 06/01/24 08:17
Cardiovascular:: Regular rate and rhythm
Respiratory:: Bilateral: Coarse
Lung Excursion:: Normal
Abdomen:: Nontender and Soft
Bowel Sounds:: Normal
Extremity Edema:: +2: Bilateral:
[2024-06-01 11:33] LABS: Glucose - Point of Care 155 mg/dl (70-99)
--- NOTE | 2024-06-01 13:02 | W.PN.HOSP.TC ---
Today's Communication/Plan
-
d/c planning for home
Assessment / Plan
Assessment / Plan
Recurrent bright red blood per rectum, exacerbated by Coumadin (elevated INR level)
Chronic blood loss anemia
- Suspected hemorrhoidal origin again
- noted recent Colonoscopy with small polyps and hemorrhoids (internal).
- recommended last admit Metamucil + prn HC cream - patient did not recall such recommendations
- Currently being slowly bridged back to warfarin. INR subtherapeutic. At admission patient INR was 7 with home dose of warfarin of 2-1/2 mg every afternoon. Currently be bridged with 1 mg every afternoon daily.
- Ongoing warfarin loading 1mg > 1mg > 2mg > 2mg > 2.5mg > 3mg > 4mg > 3 mg > INR 2.44 today - will give 2mg dose only today only
- No reported blood in stool overnight again,
JOJO on CKD stage 3b
AGMA
- suspected pre-renal in nature from GI bleed versus diuretic use related
- Cr trending down
- Nephrology following input noted. Patient being resumed back on torsemide.
- Maintain on sodium bicarb due to chronic AGMA with CKD
Atrial fibrillation on chronic anticoagulation
Supratherapeutic INR on Coumadin
- Coumadin held and s/p Vitamin K and K-Centra
- Resumed a lower dose of warfarin, further dose adjustment based on response
- continue BB
Thrombocytopenia
-new, monitor
-if drops further will need to check for HIT
Stage 1 bilateral heel pressure injuries, POA
-wound care
Congestive heart failure with preserved EF
- monitor weights, I/Os
- continue BB
-Resume back on torsemide today, monitor weight/creatinine/input output
Wheezing on exam
-Denies having COPD/asthma/bronchiectasis h/o
-not a smoker
-CXR clear
-Maintain on IS and xopenox inhaler
-Diuretic being resumed today as above and should help if any minor pulmonary edema causing bronchospasms.
-Will benefit with outpatient pulmonology follow-up and PFT
Essential HTN
- BB may need to be adjusted if wheezing not improved.
Type 2 DM
- continue SSI for now
- recent A1C: 6.4%
DVT ppx: SCDs for now
Code: DNR/DNI
Anticipated Discharge: Today
Subjective/Interval History
-
Date of Service: June 01, 2024
no bleeding issues overnight
feeling weak and lethargic
Objective Data
-
Labs:
Laboratory Results
06/01/24
06:03
PT 26.5 H
INR 2.44
Sodium 136
Potassium 3.8
Chloride 97 L
Carbon Dioxide 22
BUN 50 H
Creatinine 1.8 H
Glucose 113 H
Calcium 9.1
Vital Signs:
Vital Signs
Temp Pulse Resp BP Pulse Ox
97.6 F 95 16 122/85 96
06/01/24 08:17 06/01/24 08:52 06/01/24 08:17 06/01/24 08:52 06/01/24 08:17
I&O
05/31/24 06/01/24 06/02/24
06:59 06:59 06:59
Intake Total 1473.4 / 1473.4 1254 / 1254
Balance 1473.4 / 1473.4 1254 / 1254
Review of Systems
-
Respiratory: Reports No Symptoms
Cardiac: Reports No Symptoms
Abdomen/GI: Reports No Symptoms
Physical Exam
-
General: Comfortable and Obese
HEENT: Negative Oxygen
Respiratory: Clear to Auscultation; Negative Rhonchi
Cardiac: Regular Rhythm and S1/S2; Negative Murmur or Rub
GI: Soft, Nontender and Nondistended
Musculoskeletal: No Edema
Neuro: Awake, Alert, Oriented, No Motor Deficits and Nonfocal/Grossly Intact
Psych: Calm
[2024-06-01] MEDS: NOVOLOG FLEXPEN-LOW RESISTANCE 1 UNITS SC (13:26)
[2024-06-01] MEDS: DECADRON 4 MG IV ×2 (14:06→22:53)
[2024-06-01 14:20] VITALS: BP 117/68; PULSE 88; O2SAT 95
[2024-06-01 15:24] VITALS: BP 132/91
--- NOTE | 2024-06-01 15:50 | CM ---
Room air. Receiving IV Decadron. PT Re-eval today; recommend SNF vs Home PT. OT 05/28 recommends skilled rehab.
Met with patient and spoke with Rene by phone; patient states she does not feel well today, she is tired, SOB at rest and when walking. She says she doesn't want to go home today. Suggested she consider short term SNF and she is adamant
she will go not to SNF for rehab. She is agreeable to working with PT today and will come in today also to see how she is doing. IMM completed in anticipation of d/c possibly within the next [address] Richter and nurse re; the above.
CM also reached out to Alice, PT with request to please see patient today - PT notes reviewed.
Plan home with [facility]o [facility].
[2024-06-01 16:35] LABS: Glucose - Point of Care 201 mg/dl (70-99)
[2024-06-01] MEDS: NOVOLOG FLEXPEN-LOW RESISTANCE 2 UNITS SC (18:04)
[2024-06-01] MEDS: LIPITOR 40 MG PO (18:04)
[2024-06-01] MEDS: COUMADIN 2 MG PO (18:05)
[2024-06-01 21:47] LABS: Glucose - Point of Care 227 mg/dl (70-99)
[2024-06-01] MEDS: AMBIEN 5 MG PO (22:53)
[2024-06-01 23:10] VITALS: BP 133/82
[2024-06-02 05:46] VITALS: BMI 30.5
[2024-06-02] MEDS: DECADRON 4 MG IV ×2 (05:57→13:55)
[2024-06-02 07:22] LABS: APTT 51.2 Sec (23.4-35.0)
[2024-06-02 07:30] VITALS: BP 117/61
[2024-06-02 07:31] LABS: Blood Urea Nitrogen 58 mg/dl (7-17); Calcium 9.1 mg/dl (8.4-10.2); Carbon Dioxide 24 mmol/L (22-30); Chloride 96 mmol/L (98-107); Estimated Creatinine Clearance 24 ml/min; Glucose 167 mg/dl (70-99); Sodium 133 mmol/L (135-145); eGFR 26.36
[2024-06-02 08:11] LABS: Glucose - Point of Care 170 mg/dl (70-99)
[2024-06-02 08:20] LABS: INR 2.81; PT 29.5 Sec (11.4-14.6)
[2024-06-02] MEDS: ROBITUSSIN DM 10 ML PO (09:20)
[2024-06-02] MEDS: TOPROL XL 25 MG PO (09:20)
[2024-06-02] MEDS: COLACE 100 MG PO (09:21)
[2024-06-02] MEDS: DEMADEX 40 MG PO (09:21)
[2024-06-02] MEDS: DESENEX/MITRAZOL/ZEASORB 1 APPLIC TOPICAL (09:22)
[2024-06-02] MEDS: FEOSOL 325 MG PO (09:22)
[2024-06-02] MEDS: METAMUCIL, KONSYL 1 PACKET PO (09:22)
[2024-06-02] MEDS: SODIUM BICARBONATE 1300 MG PO (09:22)
[2024-06-02] MEDS: PROTONIX 40 MG PO (09:22)
[2024-06-02] MEDS: NOVOLOG FLEXPEN-LOW RESISTANCE 1 UNITS SC (10:23)
--- NOTE | 2024-06-02 10:46 | W.PN.NEPH.PH ---
Today's Communication / Plan
-
follow labs
Assessment/Plan
-
Impression:
Bright red blood per rectum
Acute kidney injury (2.8)
CKD stage IIIb with baseline creatinine 1.7
Metabolic acidosis (gapped)
Atrial fibrillation on chronic anticoagulation
Hypertension
Diabetes
Congestive heart failure with preserved EF
Valvular heart disease (hx of mechanical valve replacement)
CAD with history of CABG
ICD
Plan:
monitor renal function cr slight up at 1.9
may have to accept higher cr to maintain vol status
c/o chr sob and wt is stable, CXR 05/31 neg
continue torsemide daily
Reduced bicarbonate 06/02
FR to 1400
labs in am
-
-
Date of Service: June 02, 2024
CC / HPI / ROS
-
Chief Complaint:
JOJO
gapped metabolic acidosis
History of Present Illness:
Hemodynamically stable
Creatinine slightly worse at 1.9
Sodium low at 133
Metabolic acidosis better at 2
low plt 105-stable
Review of Systems:
Nonoliguric, no dizziness
No change in shortness of breath which is chronic
Weights no change
Labs
-
Labs:
WBC 4.8 10^3/uL (4.8-10.8) 05/31/24 06:12
RBC 3.24 10^6/uL (4.20-5.40) L 05/31/24 06:12
Hgb 10.6 g/dL (12.0-16.0) L 05/31/24 06:12
Hct 32.3 % (37.0-47.0) L 05/31/24 06:12
Plt Count 105 10^3/uL (130-400) L 05/31/24 06:12
Sodium 133 mmol/L (135-145) L 06/02/24 06:40
Potassium 4.0 mmol/L (3.5-5.1) 06/02/24 06:40
Chloride 96 mmol/L (98-107) L 06/02/24 06:40
Carbon Dioxide 24 mmol/L (22-30) 06/02/24 06:40
BUN 58 mg/dl (7-17) H 06/02/24 06:40
Creatinine 1.9 mg/dL (0.6-1.0) H 06/02/24 06:40
eGFR 26.36 06/02/24 06:40
Glucose 167 mg/dl (70-99) H 06/02/24 06:40
Calcium 9.1 mg/dl (8.4-10.2) 06/02/24 06:40
Mvu-D-Puyfjjuhotq Pept 3060 pg/ml 05/23/24 04:48
Albumin 4.2 g/dl (3.5-5.0) 05/23/24 00:46
Physical Exam
-
Vital Signs:
Vital Signs
Temp Pulse Resp BP Pulse Ox
97.4 F 63 20 117/61 98
06/02/24 07:30 06/02/24 09:20 06/02/24 07:30 06/02/24 09:20 06/02/24 07:30
Cardiovascular:: Regular rate and rhythm
Respiratory:: Bilateral: CTA
Lung Excursion:: Normal
Abdomen:: Nontender and Soft
Extremity Edema:: +1: Bilateral: (left>right-pt reports chronic)
Rockwell Catheter: No
--- NOTE | 2024-06-02 11:57 | CM ---
Addendum entered by Iban Valdovinos 06/02/24 12:36:
CM received a phone call from [facility] safety council director Sonia and she confirmed they do have a bed available and pt is accepted for admission today.
Both pt and her spouse are aware, expressed they agreement and great satisfaction with discharge plan outcome.
UC to arrange transportation, BLS.
[facility] nursing report: [phone]
Discharge instructions fax: [phone]
D/C plan: [facility] SNF.
Original Note:
CM following re: discharge planning.
Reviewed pt's chart, discussed in details with MD, met with pt and pt's at bedside.
According to MD pt is medically stable to be discharged today. Both pt and her are aware, expressed their agreement and SNF level of care requested. IMM reviewed, placed on chart, pt has a copy.
A list of SNFs provided to the pt and her . pt stated she was at [facility] and she preferred [facility] SNF. Alternative SNFs are following: [facility], [facility], [facility].
A referral top above SNFs made. Awaiting for determination.
D/C plan: preferred SNF.
CM will follow to assist pt with discharge to a preferred SNF.
[2024-06-02 12:57] LABS: Glucose - Point of Care 208 mg/dl (70-99)
[2024-06-02 13:47] VITALS: BP 133/68; PULSE 76; O2SAT 96
[2024-06-02] MEDS: NOVOLOG FLEXPEN-LOW RESISTANCE 2 UNITS SC ×2 (13:54→17:54)
--- NOTE | 2024-06-02 14:04 | W.PN.HOSP.TC ---
Today's Communication/Plan
-
d/c snf rehab
Assessment / Plan
Assessment / Plan
Recurrent bright red blood per rectum, exacerbated by Coumadin (elevated INR level)
Chronic blood loss anemia
- Suspected hemorrhoidal origin again
- noted recent Colonoscopy with small polyps and hemorrhoids (internal).
- recommended last admit Metamucil + prn HC cream - patient did not recall such recommendations
- Currently being slowly bridged back to warfarin. INR subtherapeutic. At admission patient INR was 7 with home dose of warfarin of 2-1/2 mg every afternoon. Currently be bridged with 1 mg every afternoon daily.
- Ongoing warfarin loading 1mg > 1mg > 2mg > 2mg > 2.5mg > 3mg > 4mg > 3 mg > 2mg > INR 2.8 today -patient being discharged to rehab. Instruction on discharge medication placed for warfarin to be held today in the evening. With resumption of
tomorrow evening 2 and half milligram.
- Patient to follow-up with Dr. Ludwig in office if continued to have hemorrhoidal bleeding issue
JOJO on CKD stage 3b
AGMA
- suspected pre-renal in nature from GI bleed versus diuretic use related
- Creatinine has increased Cr marginally, nephro input noted. A follow-up BMP prescription provided and patient will benefit with continued follow-up
- Nephrology following input noted. Patient being resumed back on torsemide.
- Maintain on sodium bicarb due to chronic AGMA with CKD
Atrial fibrillation on chronic anticoagulation
Supratherapeutic INR on Coumadin
- Coumadin held and s/p Vitamin K and K-Centra
- Resumed a lower dose of warfarin, further dose adjustment based on response
- continue BB
Thrombocytopenia
-new, monitor
-if drops further will need to check for HIT
Stage 1 bilateral heel pressure injuries, POA
-wound care
Congestive heart failure with preserved EF
- monitor weights, I/Os
- continue BB
-Resume back on torsemide today, monitor weight/creatinine/input output
Wheezing on exam
-Denies having COPD/asthma/bronchiectasis h/o
-not a smoker
-CXR clear
-Maintain on IS and xopenox inhaler
-Diuretic being resumed today as above and should help if any minor pulmonary edema causing bronchospasms.
-Will benefit with outpatient pulmonology follow-up and PFT
-Provided patient empiric course of steroid at discharge, feeling better with few doses of IV steroids in hospital.
Essential HTN
- BB may need to be adjusted if wheezing not improved.
Type 2 DM
- continue SSI for now
- recent A1C: 6.4%
DVT ppx: SCDs for now
Code: DNR/DNI
Anticipated Discharge: Today
Subjective/Interval History
-
Date of Service: June 02, 2024
no issues overnight
Patient subjectively feeling better
Objective Data
-
Labs:
Laboratory Results
06/02/24
06:40
PT 29.5 H
INR 2.81
APTT 51.2 H
Sodium 133 L
Potassium 4.0
Chloride 96 L
Carbon Dioxide 24
BUN 58 H
Creatinine 1.9 H
Glucose 167 H
Calcium 9.1
Vital Signs:
Vital Signs
Temp Pulse Resp BP Pulse Ox
97.4 F 63 20 117/61 98
06/02/24 07:30 06/02/24 09:20 06/02/24 07:30 06/02/24 09:20 06/02/24 07:30
I&O
06/01/24 06/02/24 06/03/24
06:59 06:59 06:59
Intake Total 1254 / 1254 720 / 720
Output Total 125 / 125
Balance 1254 / 1254 595 / 595
Review of Systems
-
Respiratory: Denies Wheezing
Cardiac: Reports No Symptoms
Abdomen/GI: Reports No Symptoms
Physical Exam
-
General: Comfortable and Obese
HEENT: Negative Oxygen
Respiratory: Clear to Auscultation; Negative Rhonchi
Cardiac: Regular Rhythm and S1/S2; Negative Murmur or Rub
GI: Soft, Nontender and Nondistended
Musculoskeletal: No Edema
Neuro: Awake, Alert, Oriented, No Motor Deficits and Nonfocal/Grossly Intact
Psych: Calm
[2024-06-02 16:00] VITALS: BP 119/70
[2024-06-02] MEDS: LIPITOR 40 MG PO (17:55)
== END 2024-06-02 18:39 | DRG 813 ==
LOC: 3 WEST ACU 03:15
PROVIDERS: Clinical Nurse Specialist Family Health; Internal Medicine; Specialist; ADMITTING PHYSICIAN Internal Medicine; ATTENDING PHYSICIAN Hospitalist; CONSULT PHYSICIAN Surgery; EMERGENCY PHYSICIAN Student in an Organized Health Care Education/Training Program; OTHER PHYSICIAN Specialist
PROC: 30283B1 Transfusion of Nonautologous 4-Factor Prothrombin Complex Concentrate into Vein, Percutaneous Approach (ICD-10-PCS; 2024-05-23)
DX: D68.32 Hemorrhagic disorder due to extrinsic circulating anticoagulants (principal); D61.818 Other pancytopenia; E87.20 Acidosis, unspecified; N17.9 Acute kidney failure, unspecified; N18.4 Chronic kidney disease, stage 4 (severe); I48.21 Permanent atrial fibrillation; I13.0 Hypertensive heart and chronic kidney disease with heart failure and stage 1 through stage 4 chronic kidney disease, or unspecified chronic kidney disease; I50.32 Chronic diastolic (congestive) heart failure; K62.5 Hemorrhage of anus and rectum; Z79.01 Long term (current) use of anticoagulants; D50.0 Iron deficiency anemia secondary to blood loss (chronic); D69.6 Thrombocytopenia, unspecified; L89.621 Pressure ulcer of left heel, stage 1; L89.611 Pressure ulcer of right heel, stage 1; Z66 Do not resuscitate
CPT/HCPCS: 71045; 71046; 80048; 80053; 81003; 81015; 82570; 82962; 83605; 83735; 83880; 84156; 85014; 85018; 85025; 85027; 85610; 85730; 86850; 86900; 86901; 87077; 87086; 87186; 94640; 96365; 96367; 97116; 97163; 97167; 97530; 97535; 99284; J7168

== ENCOUNTER 2024-06-10 19:24 | Inpatient (IN) | payer MEDICARE, OTHER, SELFPAY ==
[2024-06-10] VITALS (8 sets, daily range): BP systolic 130–154; BP diastolic 68–109; BMI 34.7; BMI 31.6
[2024-06-10 15:34] LABS: % Basophils 0.2 % (0-2); % Eosinophils 1.4 % (0-6); % Immature Granulocytes 0.4 % (0-0.5); % Lymphocytes 5.5 % (20.5-51.1); % Monocytes 4.7 % (1.7-9.3); % Neutrophils 87.8 % (42.2-75.2); Absolute Eosinophils 0.1 10^3/uL (0-0.7); Absolute Lymphocytes 0.3 10^3/uL (1.2-3.4); Absolute Monocytes 0.3 10^3/uL (0.1-0.6); Absolute Neutrophils 4.9 10^3/uL (1.4-6.5); Hematocrit 37.6 % (37.0-47.0); Hemoglobin 11.8 g/dL (12.0-16.0); Mean Corp Hgb Conc. 31.4 g/dL (33.0-37.0); Mean Corpuscular Hgb 31.1 pg (27.0-31.0); Mean Corpuscular Volume 99.2 fL (81.0-99.0); Mean Platelet Volume 12.6 fL (7.4-10.4); Nucleated Red Blood Cells % 0.5 %; Platelet Count 135 10^3/uL (130-400); Red Blood Cell Count 3.79 10^6/uL (4.20-5.40); Red Cell Dist. Width 15.9 % (11.5-14.5); White Blood Cell Count 5.6 10^3/uL (4.8-10.8)
[2024-06-10 15:50] LABS: ALT (SGPT) 51 U/L (0-35); AST (SGOT) 92 U/L (14-36); Albumin 4.3 g/dl (3.5-5.0); Alkaline Phosphatase 184 U/L (38-126); Blood Urea Nitrogen 92 mg/dl (7-17); Calcium 9.4 mg/dl (8.4-10.2); Carbon Dioxide 24 mmol/L (22-30); Chloride 99 mmol/L (98-107); Estimated Creatinine Clearance 20 ml/min; Glucose 128 mg/dl (70-99); Potassium 4.7 mmol/L (3.5-5.1); Sodium 138 mmol/L (135-145); Total Bilirubin 2.3 mg/dl (0.2-1.3); eGFR 18.97
[2024-06-10 16:04] LABS: Troponin I 0.078 ng/ml
--- NOTE | 2024-06-10 17:24 | ED.GENMED ---
History of Present Illness
General
Chief Complaint: Breathing Problem
Time Seen by Provider: 06/10/24 14:29
History of Present Illness
History of Present Illness:
78-year-old female with history of permanent atrial fibrillation, CHF, CAD, hypertension, hyperlipidemia, and V-fib arrest status post AICD placement presents to the emergency department for evaluation of worsening shortness of breath and weight
gain. Her weight is up approximately 13 pounds over the past 11 days according to her spouse. Her torsemide was recently increased however as a result her renal function has worsened per outpatient labs. The patient reports continued shortness of
breath and fatigue.
Past History
Past History
ED Past Medical History: Arrthythmia ( out of hospital cardiac arrest, ventricular fibrillation, PVCs, permanent atrial fibrillation,), CAD, CHF, HTN, Hypercholesterolemia, NIDDM, Valvular disease and Other (Pneumonia, GIB, Chronic cough, Anal
fissures. )
ED Past Surgical History: Cardiac (Pacer/Defib, Mitral valve replaced,. CABG X 4, TAVR), Cholecystectomy and Other (cataracts)
Social History
Tobacco: Non-smoker
Alcohol: None
Drug: None
Personal:
Living: with family
Employment: Retired
Family History
Family History: Other (Noncontributory)
Review of Systems
Review of Systems
Allergies reviewed?: Yes
All Other Systems: ROS reviewed and negative except as documented in HPI and ROS
Phy Exam
Physical Exam
Physical Exam:
GEN: Well appearing, NAD, WDWN
Eyes: PERRLA, EOMs intact, no scleral icterus
HENT: NCAT, oral mucosa moist
Lungs:Tachypneic, no accessory muscle use, diminished bibasilar breath sounds
Cardiac: RRR, no M/R/G. Radial pulses 2+ bilat
Neuro: AO x 3
MSK: No gross deformity or ecchymosis. 4+ pitting edema BLE
Skin: No rashes, petechiae. Normal color, no pallor or jaundice.
Psych: Calm, cooperative, proper hygiene
Scores
Heart Failure Risk
Heart Failure Risk Score: Not Applicable
Course
Orders/Labs/Results
Orders:
Orders
06/10/24 14:47
CXR2 [CR Chest - 2 Views ] Urgent
Comment:
Reason For Exam: SOB
06/10/24 Dinner
2000 calorie (17 carb) Diabetic
At Your Request: Full Participation
Fluid Restriction: 1200 mL/day (40 oz)
Diabetic Diet: Sodium, 2 Gram
06/10/24 15:21
Complete Blood Count/With Diff Urgent
Comprehensive Metabolic Panel Urgent
NT-proBNP Urgent
Troponin I Urgent
06/10/24 17:24
Furosemide [Lasix] 80 mg IV NOW STA
06/10/24 18:11
Bladder Scan As Directed
Follow Bladder Retention/Intermittent Cath Algorithm?: No
Frequency: q6h
If Bladder Scan Result >: 400
then:: Place catheter
06/10/24 18:37
Admit/Transfer Patient As Directed
Co-Sign Provider:
Level of Care: Inpatient admission
Assign to:: Telemetry
Physician / Group: Htay
Diagnosis: CHF, JOJO
Reason for Telemetry: Acute Heart Failure
Date to Stop Telemetry: 06/13/24
Time to Stop Telemetry: 11:00
Reason for Hospitalization: IV diuretics
Expected length of stay greater than two midnights?: Yes
ELOS- Estimated Length of Stay in days: 3
I certify the patient meets the requirements for IP care: Yes
PRN Pain Medication Management As Directed
May give lesser potent ordered pain med per pt: Yes
preference::
Protocol:: Medication orders for pain may be administered in a
manner that supports deferring to patient preference
when the pt is:
- Requesting an ordered lesser potent pain medication.
Least to most potent pain medications are defined
as: acetaminophen < NSAID < tramadol < opioids
(morphine, oxycodone, hydromorphone).
- Requesting a lesser dose of the same medication IF
ORDERED.
- Requesting a less intrusive route of administration
if both routes are prescribed by the provider (PO <
IV).
06/10/24 18:40
Code Status As Directed
Resuscitation Status: Do not resuscitate
Reached after discussion with pt or family/Healthcare POA: Yes
DNR Bracelet Application ONCE
06/10/24 18:51
ECG [Electrocardiogram (*1)] Urgent
Reason for Study: Shortness of Breath
06/10/24 19:05
COVID-19 Antigen Routine
Source: Nasal Swab
PTT Urgent
Comment: ADD ON
Prothrombin Time Urgent
Troponin I Q6H
06/10/24 20:12
Acetaminophen [Tylenol] 650 mg PO Q6HPRN PRN
Dextrose 50%-Water [Dextrose 50% Syringe] 12.5 grams IV [id number] PRN
Docusate W/Senna [Senokot-S] 1 tablet PO BID
Glucagon [GlucaGen] 1 mg IM PRN PRN
Levalbuterol [Xopenex 0.63 mg Inhalant Solution] 0.63 mg INH R Q8HPRN PRN
Nitroglycerin Sublingual [Nitrostat (Sublingual)] 0.4 mg SL [id number] PRN
Pantoprazole [Protonix] 40 mg PO BID
Zolpidem Tartrate [Ambien] 5 mg PO HSPRN PRN
metoprolol succinate 25 mg PO BID
06/10/24 20:12
CARDIOLOGY CONSULT Routine
Consulting Provider: Manolo Arnold
Was physician already notified: Yes
HF DIETARY CONSULT Routine
HF EDUCATOR CONSULT Routine
Comment:
VTE Contraindication Routine
VTE Mechanical Device Contraindication: Edema of lower extremity
Pharmocologic Contraindication: Medical Contraindication
Activity As Directed
Activity Level: Out of Bed- Chair
Bedside Glucose Monitoring As Directed
Frequency: AC&HS
Additional Instructions:: Change to q6h if pt on TPN, tube feeding or not eating
Intake/ Output As Directed
Frequency: Per unit guidelines
Patient Education As Directed
Type: CHF folder
Comment: give on admission. Document in Interdisciplinary Education record
Sleep Apnea Assessment by RN As Directed
Comment:
Physician Instructions:
Vital Signs As Directed
Frequency: Other
Additional Instructions:: Q12 or per unit guidelines if more frequent.
Weight As Directed
Frequency: Daily
Type of Scale: Standing Scale
Comment: Daily morning weight. If unable to stand, use balanced bed scale.
Weight As Directed
Frequency: Once
Type of Scale: Standing Scale
Comment: Upon Admission. If unable to stand, use balanced bed scale.
Xopenex Reason for Use As Directed
Reason for ordering Xopenex instead of Albuterol: patient takes at home
Pulse Ox/cont/shift [RESP] Routine
Quantity: 1
Special Instructions: Daily pulse oximetry at rest. If greater than 92% at rest also obtain pulse oximetry
while ambulating as tolerated.
Ot Eval And Treat Routine
Pt Eval And Treat Routine
Activity Level: Out of Bed-Early Mobility
06/11/24 03:00
Troponin I Q6H
06/11/24 06:00
Basic Metabolic Panel IN AM
Complete Blood Count/No Diff IN AM
Yrnbj-Anpu-Etwjejn IN AM
Magnesium IN AM
Phosphorus IN AM
Prothrombin Time IN AM
06/11/24 07:30
Insulin Aspart Corrective Low [Novolog Flexpen-Low Resistance] See Protocol SC AC
06/11/24 08:00
Calcium Polycarbophil [Fibercon] 625 mg PO DAILY
Ferrous Sulfate [Feosol] 325 mg PO DAILY
Furosemide [Lasix] 80 mg IV DAILY
Prednisone [Deltasone] 10 mg PO DAILY
Sodium Bicarbonate 1,300 mg PO DAILY
06/11/24 09:00
Troponin I Q6H
06/11/24 18:00
Allopurinol [Zyloprim] 100 mg PO QPM
Potassium Chloride [KCl] 10 meq PO QPM
06/12/24 06:00
Basic Metabolic Panel IN AM
Prothrombin Time IN AM
06/13/24 06:00
Basic Metabolic Panel IN AM
Prothrombin Time IN AM
06/13/24 11:00
DC Protocol for Telemetry ONCE
06/14/24 06:00
Prothrombin Time IN AM
06/15/24 06:00
Prothrombin Time IN AM
Abnormal Lab Results
06/10/24 06/10/24
15:21 19:05
RBC 3.79 L 10^6/uL
(4.20-5.40)
Hgb 11.8 L g/dL
(12.0-16.0)
MCV 99.2 H fL
(81.0-99.0)
MCH 31.1 H pg
(27.0-31.0)
MCHC 31.4 L g/dL
(33.0-37.0)
RDW 15.9 H %
(11.5-14.5)
MPV 12.6 H fL
(7.4-10.4)
Absolute Lymphs (auto) 0.3 L 10^3/uL
(1.2-3.4)
Neutrophils % 87.8 H %
(42.2-75.2)
Lymphocytes % 5.5 L %
(20.5-51.1)
PT 20.6 H Sec
(11.4-14.6)
BUN 92 H mg/dl
(7-17)
Creatinine 2.5 H mg/dL
(0.6-1.0)
Glucose 128 H mg/dl
(70-99)
Total Bilirubin 2.3 H mg/dl
(0.2-1.3)
AST 92 H U/L
(14-36)
ALT 51 H U/L
(0-35)
Alkaline Phosphatase 184 H U/L
(38-126)
Troponin I 0.078 H* ng/ml 0.073 H* ng/ml
06/10/24 15:21
06/10/24 15:21
Vital Signs
Initial and Last Documented VS:
Initial Vital Signs
Temp Pulse Resp BP Pulse Ox
97.4 F 90 20 138/109 99
06/10/24 14:27 06/10/24 14:27 06/10/24 14:27 06/10/24 14:27 06/10/24 14:27
Last Documented Vital Signs
Temp Pulse Resp BP Pulse Ox
97.4 F 86 19 130/104 100
06/10/24 14:31 06/10/24 19:15 06/10/24 19:15 06/10/24 19:00 06/10/24 19:15
MDM/Problems Addressed
MDM/Problems Addressed:
Patient is failing increased home diuresis with evidence of volume overload and cardiac stress. Will admit for IV diuresis
*Critical Care Note
Total Time (30-74mins, 75-104mins- exclusive of procedures): Not Applicable
Update Note
Update Note:
[employer] report shows increased intrathoracic fluid accumulation with no evidence for arrhythmias
ED Attending Note
-
Portions of this chart may have been created with voice recognition software.� Occasional wrong word or��sound alike� substitutions may have occurred due to the inherent limitations of voice recognition software.
Discharge Plan
Departure
Patient Disposition: Admit
Date of Disposition: 06/10/24
Time of Disposition: 17:29
Admit to: Telemetry
Presentation/result/management discussed w/ accepting MD/DO: Hospitalist
Discharge Problem:
Acute on chronic heart failure with normal ejection fraction
Interventions
Interventions:
*Risk Screen - Suicide Last Done: 06/10/24 14:33
*General Assessment Last Done: 06/10/24 14:33
*Neglect/Abuse Screening Last Done: 06/10/24 14:33
ED- Fall Risk Assessment Last Done: 06/10/24 14:35
*ED COVID-19 Vaccine History Last Done: 06/10/24 14:35
*Nursing Disposition Last Done: 06/10/24 20:07
ED- Cardiac Assessment Last Done: 06/10/24 14:35
ED- Pulmonary Assessment Last Done: 06/10/24 14:35
Discharge Date and Time
Discharge Date/Time: 06/10/24 20:08
[2024-06-10 17:33] LABS: NT-proBNP 4900 pg/ml
[2024-06-10] MEDS: LASIX 80 MG IV (17:34)
--- NOTE | 2024-06-10 18:14 | HPS.HSE ---
Addendum entered and electronically signed by Carolee Abdalla PA-C 06/10/24 18:59:
Corrections:
Diabetes Mellitus, Type II
-Will hold repaglinide in setting of acute kidney injury.
-Monitor sugars and continue coverage insulin
Hyperlipidemia
-Hold statin due to elevated LFTs
Original Note:
Family Physician
-
Family Physician: Jacob Loco
Chief Complaint
-
Weight Gain and Shortness of Breath
History of Present Illness
Patient is an 78 y/o female past medical history of mechanical mitral valve replacement, CHF, Afib and recent hospitalization for JOJO and rectal bleeding who presents with shortness of breath and weight gain. Patient reports increasing shortness of
breath over the past few days. She notes worsening edema in her arms and legs. It appears she has gained about 20lbs since her discharge from the hospital last week. During that hospitalization her diuretics dose was decreased. Review of [place] records
suggest she received SC fluids due to rising creatinine on outpatient blood work. Patient denies chest pains or palpitaitons. She denies fevers, sweats or chills.
Medical History
Past Medical History
Past Medical History: Reports Other
Additional Past Medical History:
Coronary Artery Disease s/p CABG
Chronic HFpEF
Permanent Atrial Fibrillation
Ventricular Fibrillation s/p ICD
Essential Hypertension
Hyperlipidemia
Diabetes Mellitus, Type II
CKD Stage IIIB
Subdural Hematoma
Gout
Past Surgical History: Reports Other
Additional Past Surgical History:
TAVR
Mechanical Mitral Valve Replacemnt
CABG
Social History
Tobacco: Non-smoker
Alcohol: None
Personal:
Living: Other (Patient at SNF for short term rehab)
Employment: Retired
Family History
Family History: Not pertinent
Allergies / Home Medications
Allergies reflects when Allergies were last updated in [facility].
Home Medications with original date entered in [facility]
Allergy/Medication List:
Allergies
Allergy/AdvReac Type Severity Reaction Status Date / Time
No Known Allergies Allergy Verified 05/23/24 00:43
Home Medications
atorvastatin 40 mg tablet 40 mg PO QPM High cholesterol 09/22/19
levalbuterol HCl 0.63 mg/3 mL solution for nebulization 0.63 mg inhalation R Q8HPRN PRN sob/wheezing 11/22/22
docusate sodium 100 mg capsule (Colace) 100 mg PO DAILY Constipation 05/01/24
ferrous sulfate 325 mg (65 mg iron) tablet 325 mg PO DAILY Supplement 05/01/24
omega 6-zdl-gpc-fish oil 1,000 mg (120 mg-180 mg) capsule (Fish Oil) 1 cap PO DAILY Supplement 05/01/24
nitroglycerin 0.4 mg sublingual tablet 0.4 mg sublingual [id number] PRN chest pain 30 days #20 tabs 05/12/24
pantoprazole 40 mg tablet,delayed release 40 mg PO BID Gastrointestinal issue 30 days #60 tabs 05/12/24
potassium chloride 10 mEq capsule,extended release 10 meq PO QPM Supplement 30 days #30 caps 05/12/24
repaglinide 0.5 mg tablet 0.5 mg PO AC Diabetes 30 days #30 tabs 05/12/24
sennosides 8.6 mg capsule (senna) 8.6 mg PO DAILYPRN PRN constipation 30 days #30 caps 05/12/24
therapeutic multivitamin 1 tab PO DAILY Supplement 30 days #30 tabs 05/12/24
triamcinolone acetonide 0.1 % topical cream 1 applic topical DAILYPRN PRN shoulder and back itching 05/23/24
polyethylene glycol 3350 17 gram oral powder packet (Miralax) 17 g PO DAILY #30 ea 06/01/24
sodium bicarbonate 650 mg tablet 1,300 mg (2 x 650 mg) PO DAILY #60 tabs 06/01/24
prednisone 10 mg tablet See Rx Instructions .Route .COMPLEX #30 tabs 06/02/24
acetaminophen 325 mg tablet 650 mg PO Q6HPRN PRN mild-moderate pain/temp>100.4 06/10/24
allopurinol 100 mg tablet 100 mg PO QPM Gout 06/10/24
bisacodyl 10 mg rectal suppository (Dulcolax (bisacodyl)) 10 mg [place] DAILYPRN PRN if mom not effective within 8 hrs 06/10/24
calcium polycarbophil 625 mg tablet (Fiber-Lax) 625 mg PO DAILY 06/10/24
hydrocortisone 1 % topical cream (Preparation H Hydrocortisone) 1 applic [place] Q8HPRN PRN hemorrhoids 06/10/24
magnesium hydroxide 400 mg/5 mL oral suspension (Milk of Magnesia) 30 ml PO [id number] PRN if no bm in 72hrs 06/10/24
metoprolol succinate 25 mg capsule sprinkle, ext. release 24 hr 25 mg PO BID 06/10/24
sodium chloride 0.9 % 0 ml IV USEASDIRECTD 06/10/24
sodium phosphates 19 gram-7 gram/118 mL enema (Fleet Enema) 118 ml [place] DAILYPRN PRN if no results from dulcolax within 8hrs 06/10/24
torsemide 20 mg tablet 20 mg PO DAILY 06/10/24
zolpidem 5 mg tablet 5 mg PO HSPRN PRN insomnia 06/10/24
Review of Systems
-
A 12 point ROS was completed and negative except as noted: Yes
Constitutional: Denies Fever or Chills
Respiratory: Reports Trouble Breathing; Denies Cough
Cardiac: Denies Chest Pain or Palpitations
Musculoskeletal: Reports Edema
Physical Exam
Vital Signs
Vital Signs
Temp Pulse Resp BP Pulse Ox
97.4 F 88 17 133/99 100
06/10/24 14:31 06/10/24 17:45 06/10/24 17:45 06/10/24 17:34 06/10/24 17:45
Physical Exam
General: No Apparent Distress, Conversant and Other (Appears weak)
HEENT: Anicteric, Moist mucous membranes and Oxygen (Nasal Cannula)
Respiratory: Clear and Non Labored Respirations
Cardiac: S1/S2 and Irregular Rhythm
GI: Soft and Non Tender
Rectal: Deferred by Provider
Musculoskeletal: No Clubbing, No Cyanosis and Other (+2 edema upper extremities; +3 pitting edema bilateral lower extremities)
Skin: Warm and Dry
Neuro: Awake, Alert, Oriented and Nonfocal/grossly intact
Psych: Calm
Laboratory Results
-
06/10/24 15:21
06/10/24 15:21
Laboratory Results
Total Bilirubin 2.3 mg/dl (0.2-1.3) H 06/10/24 15:21
AST 92 U/L (14-36) H 06/10/24 15:21
ALT 51 U/L (0-35) H 06/10/24 15:21
Alkaline Phosphatase 184 U/L (38-126) H 06/10/24 15:21
Troponin I 0.078 ng/ml H* 06/10/24 15:21
Data Reviewed
-
Lab Data: Labs Reviewed by me
Old Records: Reviewed
Impression/Plan
-
Acute on Chronic HFpEF
-Consult Cardiology
-Continue Lasix 80mg IV Daily
-Monitor Is&Os and Daily Weights
Elevated Troponin, suspect non-ischemic myocardial injury in setting of acute heart failure
-Continue to trend
Acute Kidney Injury on CKD Stage IIIB
-Consult Nephrology
-Check bladder scan - Place [facility] if greater than 400mL
Elevated LFTs, suspect vascular congestion in setting of acute volume overload
-Hold statin
-Continue to trend LFTs
-Consider further imaging / GI consult if not improved
Mechanical Mitral Valve
-Check INR - Goal 2.5-3.5
-Dose Coumadin based on INR result
Permanent Atrial Fibrillation
-Continue Coumadin for anticoagulation
-Continue Metoprolol for rate control
Essential Hypertension
Hyperlipidemia
-Continue atorvastatin
Diabetes Mellitus, Type II
-Continue repaglinide
-Monitor sugars and continue coverage insulin
Chronic Metabolic Acidosis
-Continue sodium bicarbonate
Hx Subdural Hematoma
Hx Ventricular Fibrillation s/p ICD
DVT proph: Coumadin
Code Status: DNR
--- NOTE | 2024-06-10 18:49 | CON.CAR ---
Consultation
Consultation Request
Date/Time Consultation Requested: 06/10/2024 at 630
Date/Time Consultation Performed: 06/10/2024 at 650
Requesting Provider: Hospitalist
Performing Provider: Dr. Landry
Reason for Consultation: Shortness of breath
Medical History
-
History of Present Illness:
78 year old female with TAVR 09/2022, [facility] mechanical MVR 2008, permanent A fib, on Coumadin, VF arrest s/p single chamber MDT ICD (2019), IVCD, CAD s/p CABG x4 2008, chronic HFpEF, DM, HTN, hyperlipidemia, CKD,, SDH after fall 2021 recent
hospitalization for rectal bleeding secondary to GI bleed who presents with shortness of breath patient was discharged recently to rehab. It sounds as if she has some chronic degree of shortness of breath and did have shortness of breath when she
went to rehab but had increased shortness of breath yesterday and today. No reports of increased lower extremity edema no chest pain patient does have a cough. No fever. She had 1 episode of brief rectal bleeding while at the rehab but no further
episodes.
Past medical history as noted above
Past Medical History
Past Surgical History: Other (Cholecystectomy appendectomy coronary artery bypass grafting)
Social History
Tobacco: Non-Smoker
Family History
Family History: Other ( at bedside daughter at bedside)
Allergies / Home Medications
Allergy/AdvReac Type Severity Reaction Status Date / Time
No Known Allergies Allergy Verified 05/23/24 00:43
�Medication �Instructions �Recorded �Confirmed �Type
atorvastatin 40 mg tablet 40 mg PO QPM High cholesterol 09/22/19 06/10/24 History
levalbuterol HCl 0.63 mg/3 mL 0.63 mg inhalation R Q8HPRN PRN 11/22/22 06/10/24 History
solution for nebulization sob/wheezing
docusate sodium 100 mg capsule 100 mg PO DAILY Constipation 05/01/24 06/10/24 History
(Colace)
ferrous sulfate 325 mg (65 mg 325 mg PO DAILY Supplement 05/01/24 06/10/24 History
iron) tablet
omega 9-ffv-awp-fish oil 1,000 mg 1 cap PO DAILY Supplement 05/01/24 06/10/24 History
(120 mg-180 mg) capsule (Fish Oil)
nitroglycerin 0.4 mg sublingual 0.4 mg sublingual [id number] PRN 05/12/24 06/10/24 Rx
tablet chest pain 30 days #20 tabs
pantoprazole 40 mg tablet,delayed 40 mg PO BID Gastrointestinal 05/12/24 06/10/24 Rx
release issue 30 days #60 tabs
potassium chloride 10 mEq 10 meq PO QPM Supplement 30 days 05/12/24 06/10/24 Rx
capsule,extended release #30 caps
repaglinide 0.5 mg tablet 0.5 mg PO AC Diabetes 30 days #30 05/12/24 06/10/24 Rx
tabs
sennosides 8.6 mg capsule (senna) 8.6 mg PO DAILYPRN PRN 05/12/24 06/10/24 Rx
constipation 30 days #30 caps
therapeutic multivitamin 1 tab PO DAILY Supplement 30 days 05/12/24 06/10/24 Rx
#30 tabs
triamcinolone acetonide 0.1 % 1 applic topical DAILYPRN PRN 05/23/24 06/10/24 History
topical cream shoulder and back itching
polyethylene glycol 3350 17 gram 17 g PO DAILY #30 ea 06/01/24 06/10/24 Rx
oral powder packet (Miralax)
sodium bicarbonate 650 mg tablet 1,300 mg (2 x 650 mg) PO DAILY #60 06/01/24 06/10/24 Rx
tabs
prednisone 10 mg tablet See Rx Instructions .Route 06/02/24 06/10/24 Rx
.COMPLEX #30 tabs
acetaminophen 325 mg tablet 650 mg PO Q6HPRN PRN mild-moderate 06/10/24 06/10/24 History
pain/temp>100.4
allopurinol 100 mg tablet 100 mg PO QPM Gout 06/10/24 06/10/24 History
bisacodyl 10 mg rectal suppository 10 mg [place] DAILYPRN PRN if mom not 06/10/24 06/10/24 History
(Dulcolax (bisacodyl)) effective within 8 hrs
calcium polycarbophil 625 mg 625 mg PO DAILY 06/10/24 06/10/24 History
tablet (Fiber-Lax)
hydrocortisone 1 % topical cream 1 applic [place] Q8HPRN PRN hemorrhoids 06/10/24 06/10/24 History
(Preparation H Hydrocortisone)
magnesium hydroxide 400 mg/5 mL 30 ml PO [id number] PRN if no bm in 06/10/24 06/10/24 History
oral suspension (Milk of Magnesia) 72hrs
metoprolol succinate 25 mg capsule 25 mg PO BID 06/10/24 06/10/24 History
sprinkle, ext. release 24 hr
sodium chloride 0.9 % 0 ml IV USEASDIRECTD 06/10/24 06/10/24 History
sodium phosphates 19 gram-7 118 ml [place] DAILYPRN PRN if no 06/10/24 06/10/24 History
gram/118 mL enema (Fleet Enema) results from dulcolax within 8hrs
torsemide 20 mg tablet 20 mg PO DAILY 06/10/24 06/10/24 History
zolpidem 5 mg tablet 5 mg PO HSPRN PRN insomnia 06/10/24 06/10/24 History
Review of Systems
-
All other systems: Negative unless noted
Physical Exam
Vital Signs
Temp Pulse Resp BP Pulse Ox
97.4 F 88 17 133/99 100
06/10/24 14:31 06/10/24 17:45 06/10/24 17:45 06/10/24 17:34 06/10/24 17:45
Lab Results
06/10/24 15:21
06/10/24 15:21
Troponin I 0.078 ng/ml H* 06/10/24 15:21
Pya-H-Brrlgkqfewr Pept 4900 pg/ml 06/10/24 15:21
Physical Exam
General: Other (Adult female who is coughs after deep inspiration mildly short of breath after coughing. Otherwise no distress)
HEENT: Normocephalic, Anicteric and Other (Extract movements are intact external ear and oral exam unremarkable)
Respiratory: Other (Decreased breath sounds at bases faint wheeze Limited inspiration with inspiration stimulates cough.)
Cardiac: Regular Rhythm
GI: Soft, Non Tender, Non Distended and Normal Bowel Sounds
Genito-urinary: No Costovertebral Tender
Musculoskeletal: No Clubbing, No Cyanosis and No Edema (Mild edema)
Neuro: Awake and Alert
Psych: Calm and Other (Cooperative)
Impression / Plan
-
Shortness of breath Acute on chronic chest x-ray with small patchy right basilar opacity could represent subsegmental atelectasis or pneumonia on x-ray without overt evidence of heart failure. proBNP 4900 higher than prior admit when 3060.
Challenging to assess in setting of JOJO. Patient has been given diuretic in the ER. Will monitor response. Will need to monitor renal function closely.
-Decisions regarding antibiotics as directed by primary team. Will check COVID test
.
Permanent atrial fibrillation. Stable and rate controlled patient on anticoagulation for mechanical mitral valve and A-fib.
.
Mechanical mitral valve. Continue anticoagulation with Coumadin target INR 2.5-3.5. With her issues with recurrent hemorrhoidal bleeding would be cautious not to allow her INR to get too high.
.
History of TAVR
.
History of GI bleed/hemorrhoidal bleeding. Recent hospitalization. 1 episode of bleeding at rehab. Monitor for recurrence.
..
JOJO. Acute on chronic creatinine up to 2.5. Patient has been given additional diuretic. Monitor response.
.
Coronary artery disease/history of coronary bypass grafting. No chest discomfort to suggest angina. Continue with medical therapy.
Abnormal troponin 0.078. No complaints of chest pain. Follow serial troponin
.
Single-chamber ICD
Data Reviewed
-
EKG: Report Reviewed by me
Radiology: Report Reviewed by me
Medical Tests (Nuc Med, Echo etc): Report Reviewed by me
Labs: Discussed with Physician
--- NOTE | 2024-06-10 19:01 | W.PN.UPDATE ---
Update Note
Progress Note Update
This note serves as an addendum to the H&P by chicken dresser TRISH Holly MROALES
HPI
78F HX S Bowen mechanical MVR permanent AF CHF, CAD, hypertension, hyperlipidemia, and V-fib arrest status post AICD placement seen at ER:
- evaluation of worsening shortness of breath and weight gain
- weight is up approximately 13 pounds over the past 11 days according to her spouse.
- Her torsemide was recently increased however as a result her renal function has worsened per outpatient labs.
PHX; see above
Vital Signs
Temp Pulse Resp BP Pulse Ox
97.4 F 85 31 145/68 99
06/10/24 14:31 06/10/24 18:45 06/10/24 18:45 06/10/24 18:00 06/10/24 18:45
PE:
GEN: NAD, WDWN
HEENT: no scleral icterus
HENT: NCAT, oral mucosa moist
Lungs: clear anteriorly
Cardiac: Irregular rythym
Neuro: AO x 3
MSK: No gross deformity or ecchymosis. 4+ pitting edema BLE
Skin: No rashes, petechiae. Normal color, no pallor or jaundice.
Psych: Calm, cooperative, proper hygiene
Data
Laboratory Tests
06/02/24 06/10/24
06:40 15:21
Creatinine 1.9 H 2.5 H
A
06/10/24
15:21
RBC 3.79 L
Hgb 11.8 L
MCV 99.2 H
MCH 31.1 H
MCHC 31.4 L
RDW 15.9 H
MPV 12.6 H
Absolute Lymphs (auto) 0.3 L
Neutrophils % 87.8 H
Lymphocytes % 5.5 L
BUN 92 H
Creatinine 2.5 H
Glucose 128 H
Total Bilirubin 2.3 H
AST 92 H
ALT 51 H
Alkaline Phosphatase 184 H
Troponin I 0.078 H*
CXR:
Small patchy right basilar opacity which could represent subsegmental atelectasis and/or pneumonia and tiny right pleural effusion.
08/15/23 ECHO
Nl LVEF
Dilated right ventricle. Normal RV contractility.
Bowen mechanical mitral valve replacement which is well seated.
23 mm Del Castillo Gin transcatheter aortic valve replacement which is well
seated and functioning well.
Severely dilated right atrium.Severe tricuspid regurgitation .
Estimated pulmonary artery pressure of 28 mmHg.
Compared to prior study of 11/23/22 the estimated PA systolic pressure was 55
mmHg. Otherwise, no significant change.
Last hospitalist admission:
Date of Admission: 05/23/24 - Date of Discharge: 06/02/24
Principal Discharge diagnosis :
Recurrent internal hemorrhoidal bleed, exacerbated by Coumadin coagulopathy
Acute kidney injury on chronic kidney disease stage IIIb
Anion gap metabolic acidosis
ASSESSMENT & PLAN
Vol overload / Anasarca
Acute on chr CHF with nl LVEF
- IV Lasix 80 daily
- daily BMP
- Daily Wt, IOs
- CBC Card consult
JOJO due to cardiorenal
CKD 3b with baseline creatinine 1.7
Metabolic acidosis (gapped)
- f/u BMP with IV diuresis
HX Bowen mechanical MVR
TAVR with 23 mm Del Castillo Gin transcatheter aortic valve replacement
- pending INR and daily
- Coumadin
Perm AF on chronic OAC
- on Coumadin
- continue BB
DMT2
- add ISS low
DVT Px: SHOT BAGGER Warfarin
DNR
IP TLM
[2024-06-10 19:20] LABS: INR 1.74; PT 20.6 Sec (11.4-14.6)
[2024-06-10 19:25] LABS: COVID-19 Antigen Negative (Negative)
[2024-06-10 19:47] LABS: Troponin I 0.073 ng/ml
--- NOTE | 2024-06-10 20:05 | W.PN.UPDATE ---
Update Note
Progress Note Update
INR is subtherapeutic at 1.74. In setting of mechanical mitral valve will start heparin drip for bridge therapy until INR is therapeutic.
[2024-06-10 20:19] LABS: APTT 32.6 Sec (23.4-35.0)
[2024-06-10] MEDS: PROTONIX 40 MG PO (21:25)
[2024-06-10] MEDS: TOPROL XL 25 MG PO (21:25)
[2024-06-10] MEDS: SENOKOT-S 1 TABLET PO (21:25)
[2024-06-10] MEDS: COUMADIN 2.5 MG PO (22:00)
[2024-06-10] MEDS: AMBIEN 5 MG PO (23:32)
--- NOTE | 2024-06-10 23:42 | PTCARENOTE ---
RN received pt around 8:15pm and pt was a lung puller onto the bed. When pt arrived BP was elevated, STAT coumadin in ED was administered and pt was plaed on 2L o2. Pt arrived and was flushed and pallor in color but has improved since, call valdes is
within reach.
[2024-06-11] VITALS (8 sets, daily range): BP systolic 91–144; BP diastolic 71–96; PULSE 77–86; O2SAT 99–100; BMI 32.5
[2024-06-11 04:16] LABS: Troponin I 0.076 ng/ml
[2024-06-11] MEDS: SENOKOT-S PO (07:35)
[2024-06-11 08:14] LABS: Glucose - Point of Care 77 mg/dl (70-99)
[2024-06-11] MEDS: NOVOLOG FLEXPEN-LOW RESISTANCE SC ×2 (08:14→12:02)
[2024-06-11] MEDS: DELTASONE 10 MG PO (08:15)
[2024-06-11] MEDS: FIBERCON 625 MG PO (08:15)
[2024-06-11] MEDS: PROTONIX 40 MG PO ×2 (08:15→20:07)
[2024-06-11] MEDS: SODIUM BICARBONATE 1300 MG PO (08:15)
[2024-06-11] MEDS: FEOSOL 325 MG PO (08:15)
[2024-06-11] MEDS: TOPROL XL 25 MG PO ×2 (08:16→20:07)
[2024-06-11] MEDS: LASIX 80 MG IV (08:16)
--- NOTE | 2024-06-11 08:21 | W.PN.HOSP.TC ---
Today's Communication/Plan
-
Start heparin bridge
Follow PTT
Follow CBC
PT/OT
Check JENI
Incentive spirometry
Assessment / Plan
Assessment / Plan
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
2008, CKD stage IV, who presented to ED on 06/10/2024 with worsening SOB, fatigue with reported 13 pounds weight gain over 11 days. She also notes worsening edema involving both arms and legs patient's torsemide was recently increased and her
outpatient renal function has worsened per blood work.
Assessment/plan:
#Presentation with shortness of breath
-Suspect due to acute HFpEF exacerbation with fluid overload/anasarca.
-Continue IV Lasix 80 mg daily.
-Check JENI.
-Follow BMP.
-Weight up 13 pounds, monitor I's and O's and daily weights.
-Monitor and replete electrolytes.
-May require right heart cath.
-Cardiology following.
-PT/OT.
#Wheezing on exam-denies smoking, COPD or asthma history.
-Suspect from new onset asthma vs pulmonary edema vs atelectasis
-CXR clear.
-Incentive spirometry and albuterol inhaler.
-Continue diuresis
-Requires outpatient pulmonary evaluation.
#SIRS (tachypnea, tachycardia, hypothermia)
-Does meet SIRS criteria, however low suspicion for infection.
-Continue to monitor.
#Permanent A-fib
-On chronic Coumadin therapy, subtherapeutic INR 1.74 at presentation.
-INR slowly coming up, will follow.
-Hold Coumadin and start heparin for bridging until INR is therapeutic.
-Follow PTT, CBC.
-Continue beta-claire
#Acute thrombocytopenia
-Improved from last admission.
-Will monitor on heparin.
-If worsening, we will assess for HIT.
#Essential hypertension
-Continue metoprolol.
#DM type II
-Recent A1c 6.4%
-Maintain on low SSI
#JOJO on CKD stage IV-cardiorenal process.
-Creatinine 2.5, baseline 1.6
- Follow with diuresis.
Valvular heart disease�history of mechanical valve replacement
DVT PPx: Heparin
CODE STATUS: DNR/DNI
Data:
CXR 06/10/2024:
Small patchy right basilar opacity which could represent subsegmental atelectasis and/or pneumonia and tiny right pleural effusion.
Anticipated Discharge: > 48 hours
Subjective/Interval History
-
Date of Service: June 11, 2024
I have seen and examined this patient. She reports recent weight gain while compliant with her torsemide. She also reports feeling tired, and breathing was somewhat rapid and she was wheezing during examination. Otherwise, she denies chest pain,
palpitations, abdominal pain, fever or chills.
Objective Data
-
Labs:
Laboratory Results
06/11/24
06:00
WBC Pending
Hgb Pending
Hct Pending
Plt Count Pending
PT Pending
INR Pending
Sodium Pending
Potassium Pending
Chloride Pending
Carbon Dioxide Pending
BUN Pending
Creatinine Pending
Glucose Pending
Calcium Pending
Total Bilirubin Pending
AST Pending
ALT Pending
Alkaline Phosphatase Pending
Vital Signs:
Vital Signs
Temp Pulse Resp BP Pulse Ox
97.2 F 93 18 139/84 99
06/11/24 04:23 06/11/24 08:16 06/11/24 04:23 06/11/24 08:16 06/11/24 04:23
I&O
06/10/24 06/11/24 06/12/24
06:59 06:59 06:59
Intake Total 240 / 240
Balance 240 / 240
Review of Systems
-
History Source: Patient
All other systems: Not reviewed unless documented
Constitutional: Reports Fatigue; Denies Fever or Chills
EENT: Reports No Symptoms Reported
Respiratory: Reports Trouble Breathing and Wheezing; Denies Cough
Cardiac: Reports No Symptoms; Denies Chest Pain or Palpitations
Abdomen/GI: Reports No Symptoms; Denies Abdominal Pain, Nausea or Vomiting
Genitourinary: Reports No Symptoms
Neuro: Reports No Symptoms; Denies Dizzy or Headache
Physical Exam
-
General: Comfortable and Obese
HEENT: Negative Oxygen
Respiratory: Clear to Auscultation; Negative Rhonchi
Cardiac: S1/S2 and Irregular Rhythm; Negative Murmur or Rub
GI: Soft, Nontender, Nondistended and Normal Bowel Sounds
Musculoskeletal: No Clubbing, Edema, Right Lower Extrem and Edema, Left Lower Extrem
Neuro: Awake, Alert, Oriented, No Motor Deficits and Nonfocal/Grossly Intact
Psych: Calm
Data Reviewed
-
Diagnostic Radiology: Image personally visualized and interpreted, Report Reviewed by me and Discussed with Physician
[2024-06-11 09:40] LABS: Hematocrit 36.5 % (37.0-47.0); Hemoglobin 11.9 g/dL (12.0-16.0); Mean Corp Hgb Conc. 32.6 g/dL (33.0-37.0); Mean Corpuscular Hgb 31.8 pg (27.0-31.0); Mean Corpuscular Volume 97.6 fL (81.0-99.0); Mean Platelet Volume 12.4 fL (7.4-10.4); Platelet Count 114 10^3/uL (130-400); Red Blood Cell Count 3.74 10^6/uL (4.20-5.40); Red Cell Dist. Width 15.8 % (11.5-14.5); White Blood Cell Count 4.9 10^3/uL (4.8-10.8)
[2024-06-11 09:53] LABS: INR 1.82; PT 21.6 Sec (11.4-14.6)
[2024-06-11 10:04] LABS: Troponin I 0.088 ng/ml
[2024-06-11 10:43] LABS: Lactic Acid 1.4 mmol/L (0.7-2.0)
[2024-06-11] MEDS: VENTOLIN NEBULES 1.25 MG INH (10:45)
[2024-06-11 11:15] LABS: ALT (SGPT) 54 U/L (0-35); AST (SGOT) 96 U/L (14-36); Albumin 4.1 g/dl (3.5-5.0); Alkaline Phosphatase 168 U/L (38-126); Blood Urea Nitrogen 94 mg/dl (7-17); Calcium 9.5 mg/dl (8.4-10.2); Carbon Dioxide 22 mmol/L (22-30); Chloride 101 mmol/L (98-107); Direct Bilirubin 0.9 mg/dl (0.0-0.4); Estimated Creatinine Clearance 19 ml/min; Glucose 96 mg/dl (70-99); Magnesium 2.4 mg/dl (1.6-2.3); Phosphorus 5.2 mg/dl (2.5-4.5); Potassium 4.3 mmol/L (3.5-5.1); Sodium 136 mmol/L (135-145); Total Bilirubin 2.5 mg/dl (0.2-1.3); Total Protein 6.8 g/dl (6.3-8.2); eGFR 18.97
--- NOTE | 2024-06-11 11:40 | WOUNDNOTE ---
L BREAST (under side)
--- NOTE | 2024-06-11 11:40 | WOUNDNOTE ---
[facility] RN note: Patient seen during pressure injury prevention rounds along with RN cloth bleaching supervisor Naty. Patient admitted with 'stage 2' pressure injury. Coccyx/buttocks with red skin and scattered bruises (does not appear to be DTI). Patient denies
falling. Skin on heels intact. She wears knee high Tubigrips for venous edema. Red petechial/purpura rash noted under L breast suspect r/t moisture, yeast. Patient's silicone border foam maintained on coccyx. Air chair cushion given. Patient in
chair with Le's elevated on a stool with a pillow on top. Patient stood with a walker and assistance of 1. She stated she can turn self in bed. Discussed with RN Elina who confirmed patient can turn self in bed. Patient has a [employer]
mattress. Miconazole powder to be ordered.
[2024-06-11 12:02] LABS: Glucose - Point of Care 119 mg/dl (70-99)
--- NOTE | 2024-06-11 13:34 | W.PN.CD ---
Addendum entered and electronically signed by Monster Landry MD 06/11/24 14:01:
I saw and examined the patient.
The AFFILIATE MARKETING SPECIALIST's note was reviewed and I agree with the note.
Correction to the above. In further review with nursing patient has already been initiated on bridge with IV heparin. Based on this we will continue to monitor closely and allow INR to trend upward.
Coumadin 4 mg tonight
Original Note:
Today's Communication / Plan
-
coumadin 5mgnowand assess daily dosing
monitor respnse to current IV lasix dosing
Impression / Plan
-
Shortness of breath Acute on chronic chest x-ray with small patchy right basilar opacity could represent subsegmental atelectasis or pneumonia on x-ray without overt evidence of heart failure. proBNP 4900 higher than prior admit when 3060.
Challenging to assess in setting of JOJO. Patient has been given diuretic in the ER. appears to be feeling better today
- Covid negative
- *3kg today which is higher than last admit. Patient with lower extremity edema including thighs
- IV lasix and monitor response
- daily wieght
- montitor renal function
.
Permanent atrial fibrillation. Stable and rate controlled patient on anticoagulation for mechanical mitral valve and A-fib.
.
Mechanical mitral valve. Continue anticoagulation with Coumadin target INR 2.5-3.5. With her issues with recurrent hemorrhoidal bleeding would be cautious not to allow her INR to get too high.
- INR subtherapeuitc.
- coumadin 2.5mg is reported by her as usual dose bt unclear if any held doses at rehab ( note there was a reported episdoeof rectal bleeding at rehab)
.
anticoagulation. Unclear why INR is subtherapeutic. Unclear if any held doses at rehab. INR 1.8. Challenging issue siwth afib and [facility] MVR but also with recent admit with rectal bleeding
- will give 5mg tonight
History of TAVR
.
History of GI bleed/hemorrhoidal bleeding. Recent hospitalization. 1 episode of bleeding at rehab. Monitor for recurrence.
..
JOJO. Acute on chronic creatinine up to 2.5. BUN 94 Patient has been given additional diuretic. Monitor response.May coni nephrology input
.
Coronary artery disease/history of coronary bypass grafting. No chest discomfort to suggest angina. Continue with medical therapy.
Abnormal troponin 0.078. No complaints of chest pain. Follow serial troponin
.
Single-chamber ICD
Physical Exam
Vital Signs/Labs
Vital Signs
Temp Pulse Resp BP Pulse Ox
97.2 F 93 20 139/84 98
06/11/24 07:30 06/11/24 10:51 06/11/24 10:51 06/11/24 08:16 06/11/24 10:51
06/10/24 06/11/24 06/12/24
06:59 06:59 06:59
Actual Weight 83.574 kg
06/11/24 09:29
06/11/24 09:29
PT 21.6 Sec (11.4-14.6) H 06/11/24 09:29
INR 1.82 06/11/24 09:29
APTT 32.6 Sec (23.4-35.0) 06/10/24 19:05
Magnesium 2.4 mg/dl (1.6-2.3) H 06/11/24 09:29
06/10/24
15:21
Pij-B-Llmtvaxudik Pept 4900
LAB Results
06/10/24 06/10/24 06/11/24
15:21 19:05 03:10
Troponin I 0.078 H* 0.073 H* 0.076 H*
06/11/24
09:29
Troponin I 0.088 H*
Physical Exam
Constitutional: No acute distress
Cardiovascular: Rhythm & rate is regular and Other ([facility] S1)
Respiratory: Respiratory effort normal
GI: Soft
Neuro/Psych: Alert
Other: Other (bilat leg edema)
Data Reviewed
-
Date of Service: June 11, 2024
Medical Decision Making: Reviewed Test Results
X-Ray/CT/US/MRI/NUC/PET: Report Reviewed by me
Medical Tests (PFT, Pathology etc): Report Reviewed by me
Labs: Labs Reviewed by me
[2024-06-11] MEDS: HEPARIN 25000 UNITS/250 ML IV (13:41)
--- NOTE | 2024-06-11 16:40 | CM ---
Reviewed chart, met with patient and her spouse to obtain information for assessment. Patient's spouse stated that patient has been at [facility] for a week for halfway. Patient was current with [facility] prior to the [place]. Patient's spouse
stated that they are not holding the bed but he would like for her to return when stable for discharge if they have a bed available. Patient expressed that she would like to return home however patient's spouse stated that as it is only him at home
along with their disabled daughter he would not be able to take care of her until she is closer to baseline. Patient's spouse was made aware that indications on behalf of medical staff will be relayed and discussed with patient. Patient's spouse
agreeable to medical staff having discussion about post acute care plans.
Plan: Case management will continue to follow and assist with discharge planning. SNF when stable will send referral back to [facility].
[2024-06-11 17:25] LABS: Glucose - Point of Care 166 mg/dl (70-99)
[2024-06-11] MEDS: ZYLOPRIM 100 MG PO (17:26)
[2024-06-11] MEDS: COUMADIN 4 MG PO (17:26)
[2024-06-11] MEDS: KCL 10 MEQ PO (17:26)
[2024-06-11] MEDS: NOVOLOG FLEXPEN-LOW RESISTANCE 1 UNITS SC (17:52)
[2024-06-11] MEDS: SENOKOT-S 1 TABLET PO (20:07)
[2024-06-11] MEDS: DESENEX/MITRAZOL/ZEASORB TOPICAL (20:12)
[2024-06-11 21:13] LABS: Glucose - Point of Care 192 mg/dl (70-99)
[2024-06-11 21:27] LABS: APTT > 200 Sec (23.4-35.0)
--- NOTE | 2024-06-11 21:37 | PTCARENOTE ---
Pt with a PTT of >200, Night notified, heparin on hold for 2hrs will resume @ 11:30pm @ 8u/kg/hr per order
[2024-06-11] MEDS: AMBIEN 5 MG PO (23:04)
[2024-06-12] VITALS (7 sets, daily range): BP systolic 112–140; BP diastolic 70–88; PULSE 60; O2SAT 99; BMI 32.8
[2024-06-12 04:33] LABS: APTT > 200 Sec (23.4-35.0)
--- NOTE | 2024-06-12 04:37 | PTCARENOTE ---
Pt with a PTT >200 @ 0437, heparin is to be stopped for 2hrs and -2 when restarted and to be restarted @ 6u/kg/hr @ 0637. Provider notified
[2024-06-12 07:41] LABS: Glucose - Point of Care 97 mg/dl (70-99)
[2024-06-12] MEDS: NOVOLOG FLEXPEN-LOW RESISTANCE SC (08:11)
--- NOTE | 2024-06-12 08:13 | W.PN.HOSP.TC ---
Today's Communication/Plan
-
Continue diuresis
Continue heparin bridge
Monitor PTT, INR
Follow I's and O's and daily weights
Assessment / Plan
Assessment / Plan
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
2008, CKD stage IV, who presented to ED on 06/10/2024 with worsening SOB, fatigue with reported 13 pounds weight gain over 11 days. She also notes worsening edema involving both arms and legs patient's torsemide was recently increased and her
outpatient renal function has worsened per blood work.
Assessment/plan:
#Decompensated HFpEF with RV failure
-13 Lb weight gain PHYSICAL CHEMIST in the setting of anasarca.
-Continue IV Lasix 80 mg daily.
-JENI 06/11 with normal EF, evidence of RV volume overload, dilated RA, RV with reduced systolic function.
-May require RHC.
-Follow BMP.
-Follow I's and O's and daily weights.
-Monitor and replete electrolytes.
-Cardiology following.
-PT/OT.
#Intermittent hypothermia
-Unclear etiology.
-Check TSH with reflex to T4.
-Yocasta hugger
#Permanent A-fib
-Stable and rate controlled.
-Continue beta-claire.
#History of mechanical MV
-Presented with subtherapeutic INR 1.74. Unclear if her Coumadin was interrupted at rehab.
-Started heparin bridge and Coumadin loading, INR currently 2.01, goal 2.5-3.5.
-Follow INR, PTT.
-Has a history of GI bleed, will continue monitoring closely.
#JOJO on CKD stage IV-cardiorenal process.
-Creatinine 2.5, baseline 1.6; BUN 95
-Follow with diuresis.
-Nephrology consult.
#Elevated LFTs
-Suggest vascular congestion
-Hold statin and trend LFTs.
#Acute on chronic anion gap metabolic acidosis
-Responds to sodium bicarbonate therapy.
#Non-WI myocardial injury with RV strain
-Abnormal troponin 0.088, no evidence of chest pain.
-Ongoing RV strain with RV volume overload.
-Continue diuresis and monitor.
#Wheezing on exam-denies smoking, COPD or asthma history.
-Resolved on bronchodilators and incentive spirometry.
-Unclear etiology, most likely from atelectasis.
-CXR clear.
-Encourage incentive spirometry, continue albuterol inhaler.
-Continue diuresis
-Requires outpatient pulmonary evaluation.
#SIRS (tachypnea, tachycardia, hypothermia)
-Does meet SIRS criteria, however low suspicion for infection.
-Continue to monitor.
#Acute thrombocytopenia
-Improved from last admission.
-Will monitor on heparin.
-If worsening, we will assess for HIT.
#Essential hypertension
-Continue metoprolol.
#DM type II
-Recent A1c 6.4%
-Maintain on low SSI
Valvular heart disease�history of mechanical valve replacement
DVT PPx: Heparin
CODE STATUS: DNR/DNI
Data:
Echo 06/11/2024:
Normal left ventricular size with low normal systolic function. LVEF 50-55%. No regional wall motion abnormalities.
Enlarged right ventricle with moderately reduced systolic function. Evidence of RV volume overload with diastolic flattening of the septum. Severely dilated right atrium with RA pressure of 15 mmHg.
Normal functioning mechanical mitral valve.
Normal functioning TAVR valve.
Torrential tricuspid regurgitation. Unable to estimate PASP.
Compared to prior echocardiogram on 08/15/2023 there is no significant change.
CXR 06/10/2024:
Small patchy right basilar opacity which could represent subsegmental atelectasis and/or pneumonia and tiny right pleural effusion.
Anticipated Discharge: > 48 hours
Subjective/Interval History
-
Date of Service: June 12, 2024
I saw and examined the patient today. Patient was sitting comfortably on a chair in no acute cardiopulmonary distress. She was on 1 L O2 NC, saturating at 99%, oxygen was turned off and patient was saturating at 96 to 98% on room air. She denies
trouble breathing, chest pain, abdominal pain, nausea or vomiting. She was reported to have hypothymia overnight which responded to warm blankets. Her PTT was >200, however, she reports no evidence of bleeding. She has more energy today compared
to yesterday.
Objective Data
-
Labs:
Laboratory Results
06/11/24 06/12/24 06/12/24
20:53 03:32 06:00
WBC
Hgb
Hct
Plt Count
PT
INR
APTT > 200 H* > 200 H* Cancelled
Sodium
Potassium
Chloride
Carbon Dioxide
BUN
Creatinine
Glucose
Calcium
06/12/24 06/12/24 06/12/24
07:21 12:00 12:30
WBC Pending
Hgb Pending
Hct Pending
Plt Count Pending
PT Pending
INR Pending
APTT Cancelled Pending
Sodium Pending
Potassium Pending
Chloride Pending
Carbon Dioxide Pending
BUN Pending
Creatinine Pending
Glucose Pending
Calcium Pending
06/12/24
18:00
WBC
Hgb
Hct
Plt Count
PT
INR
APTT Cancelled
Sodium
Potassium
Chloride
Carbon Dioxide
BUN
Creatinine
Glucose
Calcium
Vital Signs:
Vital Signs
Temp Pulse Resp BP Pulse Ox
98.4 F 70 19 130/70 100
06/12/24 03:10 06/12/24 03:10 06/12/24 03:10 06/12/24 03:10 06/12/24 03:10
I&O
06/11/24 06/12/24 06/13/24
06:59 06:59 06:59
Intake Total 240 / 240 720 / 720
Balance 240 / 240 720 / 720
Review of Systems
-
History Source: Patient
All other systems: Not reviewed unless documented
Constitutional: Reports Fatigue; Denies Fever or Chills
EENT: Reports No Symptoms Reported
Respiratory: Denies Cough, Trouble Breathing or Wheezing
Cardiac: Reports No Symptoms; Denies Chest Pain or Palpitations
Abdomen/GI: Reports No Symptoms; Denies Abdominal Pain, Nausea or Vomiting
Genitourinary: Reports No Symptoms
Neuro: Reports No Symptoms; Denies Dizzy or Headache
Physical Exam
-
General: No Apparent Distress, Comfortable and Other (Anasarca)
HEENT: Negative Oxygen
Respiratory: Clear to Auscultation; Negative Rhonchi
Cardiac: S1/S2 and Irregular Rhythm; Negative Murmur or Rub
GI: Soft, Nontender, Nondistended and Normal Bowel Sounds
Musculoskeletal: No Clubbing, Edema, Right Lower Extrem and Edema, Left Lower Extrem
Skin: Warm
Neuro: Awake, Alert, Oriented, No Motor Deficits and Nonfocal/Grossly Intact
Psych: Calm
Data Reviewed
-
Diagnostic Radiology: Image personally visualized and interpreted, Report Reviewed by me and Discussed with Physician
Medical Tests (Nuc Med, Echo etc): Image personally visualized and interpreted, Report Reviewed by me and Discussed with Physician
Labs: Labs Reviewed by me and Discussed with Physician
Old Records: Reviewed
[2024-06-12 08:20] LABS: Hemoglobin 11.2 g/dL (12.0-16.0); Mean Corp Hgb Conc. 32.9 g/dL (33.0-37.0); Mean Corpuscular Hgb 31.6 pg (27.0-31.0); Mean Platelet Volume 12.6 fL (7.4-10.4); Platelet Count 94 10^3/uL (130-400); Red Blood Cell Count 3.54 10^6/uL (4.20-5.40); Red Cell Dist. Width 15.4 % (11.5-14.5); White Blood Cell Count 5.1 10^3/uL (4.8-10.8)
[2024-06-12 08:36] LABS: INR 2.01; PT 23.3 Sec (11.4-14.6)
[2024-06-12] MEDS: DELTASONE 10 MG PO (08:43)
[2024-06-12] MEDS: TOPROL XL 25 MG PO ×2 (08:43→19:55)
[2024-06-12] MEDS: LASIX 80 MG IV ×2 (08:43→15:34)
[2024-06-12] MEDS: FEOSOL 325 MG PO (08:43)
[2024-06-12] MEDS: SENOKOT-S 1 TABLET PO ×2 (08:43→19:55)
[2024-06-12] MEDS: PROTONIX 40 MG PO ×2 (08:43→19:55)
[2024-06-12] MEDS: SODIUM BICARBONATE 1300 MG PO (08:43)
[2024-06-12] MEDS: FIBERCON 625 MG PO (08:43)
[2024-06-12] MEDS: DESENEX/MITRAZOL/ZEASORB 1 APPLIC TOPICAL ×2 (08:44→19:55)
[2024-06-12 08:45] LABS: Blood Urea Nitrogen 95 mg/dl (7-17); Carbon Dioxide 19 mmol/L (22-30); Chloride 102 mmol/L (98-107); Estimated Creatinine Clearance 21 ml/min; Glucose 103 mg/dl (70-99); Potassium 4.2 mmol/L (3.5-5.1); Sodium 137 mmol/L (135-145); eGFR 20.96
[2024-06-12 10:49] LABS: Urine Albumin Trace (Neg - Trace); Urine Bilirubin Negative (Negative); Urine Character Clear (Clear); Urine Color Yellow; Urine Glucose Negative (Negative); Urine Ketone Negative (Negative); Urine Leukocyte Trace (Negative); Urine Nitrite Negative (Negative); Urine Occult Blood Negative (Negative); Urine Specific Gravity 1.015 (<1.030); Urine Urobilinogen Negative (Neg - 1+)
[2024-06-12] MEDS: NOVOLOG FLEXPEN-LOW RESISTANCE 2 UNITS SC (11:36)
[2024-06-12 11:37] LABS: Glucose - Point of Care 206 mg/dl (70-99)
[2024-06-12 11:40] LABS: Urine Amorphous Seen; Urine Mucus Few; Urine Urothelial Cell 16-20 /LPF (FEW)
[2024-06-12 11:41] LABS: Urine Hyaline Cast >15 /LPF (0-2)
[2024-06-12 11:44] LABS: Urine Red Blood Cell 0-2 /HPF (0-2); Urine White Cell 26-30 /HPF (0-5)
--- NOTE | 2024-06-12 12:06 | W.CON.NEPH ---
Consultation
-
Date/Time Consultation Requested: 06/12/24 0939
Date/Time Consultation Performed: 06/12/24 1000
Requesting Provider: Dr Niko Cabrera
Performing Provider: Argelia Lyon
Reason for Consultation: JOJO with CKD
Medical History
-
Chief Complaint: SOB and wt gain
History of Present Illness:
The patient is an 78-year-old female with a past medical history of chronic HFpEF(maintained on torsemide), mechanical mitral valve, TAVR, ventricular fibrillation status post ICD, CAD status post CABG, chronic right bundle branch block, permanent
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 Last admit 1week ago she
had JOJO cr peak at 2.8 which improved holding diuretics but restarted soon for hypervolemia and cr was at 1.9 at d/c. She now presented back to the hospital on 06/10 with sob and wt gain of 3kg since d/c. She started on IV lasix 80mg daily. Initial
cr was at 2.5 and today at 2.3 nephrology asked to evaluate JOJO with CKD. She is afebrile and on RA. Her wts are still increasing. Hb stable at 11.2. No n/v or abd pain.
Past Medical History
(chronic HFpEF, mechanical mitral valve, TAVR, ventricular fibrillation status post ICD, CAD status post CABG, chronic right bundle branch block, permanent atrial fibrillation, CKD 4 (2), hypertension, hyperlipidemia, type 2 diabetes, gout, tremors,
subdural hemorrhage, obesity,)
Past Surgical History: Other (TAVR Mechanical Mitral Valve Replacemnt CABG)
Social History
Tobacco: Non-Smoker
Alcohol: None
Personal:
Living: [facility] (rehab)
Employment: Retired
Family History
No chronic kidney disease
Family History: Not Pertinent
Allergies / Home Medications
Allergy/AdvReac Type Severity Reaction Status Date / Time
No Known Allergies Allergy Verified 05/23/24 00:43
�Medication �Instructions �Recorded �Confirmed �Type
atorvastatin 40 mg tablet 40 mg PO QPM High cholesterol 09/22/19 06/10/24 History
levalbuterol HCl 0.63 mg/3 mL 0.63 mg inhalation R Q8HPRN PRN 11/22/22 06/10/24 History
solution for nebulization sob/wheezing
docusate sodium 100 mg capsule 100 mg PO DAILY Constipation 05/01/24 06/10/24 History
(Colace)
ferrous sulfate 325 mg (65 mg 325 mg PO DAILY Supplement 05/01/24 06/10/24 History
iron) tablet
omega 1-wlb-mxo-fish oil 1,000 mg 1 cap PO DAILY Supplement 05/01/24 06/10/24 History
(120 mg-180 mg) capsule (Fish Oil)
nitroglycerin 0.4 mg sublingual 0.4 mg sublingual [id number] PRN 05/12/24 06/10/24 Rx
tablet chest pain 30 days #20 tabs
pantoprazole 40 mg tablet,delayed 40 mg PO BID Gastrointestinal 05/12/24 06/10/24 Rx
release issue 30 days #60 tabs
potassium chloride 10 mEq 10 meq PO QPM Supplement 30 days 05/12/24 06/10/24 Rx
capsule,extended release #30 caps
repaglinide 0.5 mg tablet 0.5 mg PO AC Diabetes 30 days #30 05/12/24 06/10/24 Rx
tabs
sennosides 8.6 mg capsule (senna) 8.6 mg PO DAILYPRN PRN 05/12/24 06/10/24 Rx
constipation 30 days #30 caps
therapeutic multivitamin 1 tab PO DAILY Supplement 30 days 05/12/24 06/10/24 Rx
#30 tabs
triamcinolone acetonide 0.1 % 1 applic topical DAILYPRN PRN 05/23/24 06/10/24 History
topical cream shoulder and back itching
sodium bicarbonate 650 mg tablet 1,300 mg (2 x 650 mg) PO DAILY #60 06/01/24 06/10/24 Rx
tabs
prednisone 10 mg tablet See Rx Instructions .Route 06/02/24 06/10/24 Rx
.COMPLEX #30 tabs
acetaminophen 325 mg tablet 650 mg PO Q6HPRN PRN mild-moderate 06/10/24 06/10/24 History
pain/temp>100.4
allopurinol 100 mg tablet 100 mg PO QPM Gout 06/10/24 06/10/24 History
bisacodyl 10 mg rectal suppository 10 mg OH DAILYPRN PRN if mom not 06/10/24 06/10/24 History
(Dulcolax (bisacodyl)) effective within 8 hrs
calcium polycarbophil 625 mg 625 mg PO DAILY 06/10/24 06/10/24 History
tablet (Fiber-Lax)
hydrocortisone 1 % topical cream 1 applic OH Q8HPRN PRN hemorrhoids 06/10/24 06/10/24 History
(Preparation H Hydrocortisone)
magnesium hydroxide 400 mg/5 mL 30 ml PO [id number] PRN if no bm in 06/10/24 06/10/24 History
oral suspension (Milk of Magnesia) 72hrs
metoprolol succinate 25 mg capsule 25 mg PO BID Blood Pressure 06/10/24 06/10/24 History
sprinkle, ext. release 24 hr
sodium chloride 0.9 % 0 ml IV USEASDIRECTD Skin Issues 06/10/24 06/10/24 History
sodium phosphates 19 gram-7 118 ml OH DAILYPRN PRN if no 06/10/24 06/10/24 History
gram/118 mL enema (Fleet Enema) results from dulcolax within 8hrs
torsemide 20 mg tablet 20 mg PO DAILY Fluid 06/10/24 06/10/24 History
Retention/Swelling
zolpidem 5 mg tablet 5 mg PO HSPRN PRN insomnia 06/10/24 06/10/24 History
polyethylene glycol 3350 17 gram 17 g PO DAILY Constipation 06/11/24 06/10/24 History
oral powder packet (Miralax)
Review of Systems
-
All complete 12 point ROS have reviewed and found negative other than staed in HPI
All other systems: Negative unless noted
Physical Exam
Vital Signs
Vital Signs
Temp Pulse Resp BP Pulse Ox
97.2 F 66 16 121/79 99
06/12/24 08:41 06/12/24 08:26 06/12/24 08:26 06/12/24 08:26 06/12/24 08:26
Lab Results
WBC 5.1 10^3/uL (4.8-10.8) 06/12/24 07:21
RBC 3.54 10^6/uL (4.20-5.40) L 06/12/24 07:21
Hgb 11.2 g/dL (12.0-16.0) L 06/12/24 07:21
Hct 34.0 % (37.0-47.0) L 06/12/24 07:21
Plt Count 94 10^3/uL (130-400) L 06/12/24 07:21
Sodium 137 mmol/L (135-145) 06/12/24 07:21
Potassium 4.2 mmol/L (3.5-5.1) 06/12/24 07:21
Chloride 102 mmol/L (98-107) 06/12/24 07:21
Carbon Dioxide 19 mmol/L (22-30) L 06/12/24 07:21
BUN 95 mg/dl (7-17) H 06/12/24 07:21
Creatinine 2.3 mg/dL (0.6-1.0) H 06/12/24 07:21
eGFR 20.96 06/12/24 07:21
Glucose 103 mg/dl (70-99) H 06/12/24 07:21
Calcium 9.0 mg/dl (8.4-10.2) 06/12/24 07:21
Phosphorus 5.2 mg/dl (2.5-4.5) H 06/11/24 09:29
Qdk-N-Tovtbttmmvo Pept 4900 pg/ml 06/10/24 15:21
Albumin 4.1 g/dl (3.5-5.0) 06/11/24 09:29
echo:
CONCLUSIONS
Normal left ventricular size with low normal systolic function. LVEF 50-55%.
No regional wall motion abnormalities.
Enlarged right ventricle with moderately reduced systolic function.
Evidence of RV volume overload with diastolic flattening of the septum.
Severely dilated right atrium with RA pressure of 15 mmHg.
Normal functioning mechanical mitral valve.
Normal functioning TAVR valve.
Torrential tricuspid regurgitation. Unable to estimate PASP.
Compared to prior echocardiogram on 08/15/2023 there is no significant change.
06/10:
CXR:
IMPRESSION:
Small patchy right basilar opacity which could represent subsegmental atelectasis and/or pneumonia and tiny right pleural effusion.
Physical Exam
General: Awake, Alert, Oriented and AOx3
HEENT: EOMI, Anicteric and Neck Supple
Respiratory: Clear, Normal Excursion and Nonlabored Respirations
Cardiac: S1/S2 and Regular Rate/Rhythm
Breast: Deferred by me
Abdomen: Soft, Nontender and Nondistended
Musculoskeletal: No Cyanosis and Edema (2+)
Skin: No Rash
Neuro: Nonfocal/Grossly Intact
Psych: Appropriate
Data Reviewed
-
Radiology: Report Reviewed by me
Labs: Labs Reviewed by me
Assessment/Plan
-
Impression:
Acute on chr D CHF
Acute kidney injury
CKD stage IIIb with baseline creatinine 1.7
Metabolic acidosis
Permanent Atrial fibrillation on chronic anticoagulation
Hypertension
Diabetes
Valvular heart disease (hx of mechanical valve replacement)
CAD with history of CABG
ICD
Thrombocytopenia
Elevated LFTs
Plan:
Recurrent admits for GIB now presents with CHF
JOJO-suspect cardiorenal, UA with pyuria, follow bladder scan
check U eosinophils, note she is on BID PPI
would increase lasix to 80mg BID since wt is increasing
cr is better at 2.3, need UOP monitoring
may have to accept higher cr to maintain vol status
If cr increases likely benefit from RHC
cont po bicarb for chr met acidosis
BP stable on meds
on weaning prednisone
FR to 1400
follow LFTs
labs in am
[2024-06-12 12:15] LABS: Glucose - Point of Care 224 mg/dl (70-99)
[2024-06-12] MEDS: XOPENEX 0.63 MG INHALANT SOLUTION INH (13:10)
[2024-06-12 13:36] LABS: APTT > 200 Sec (23.4-35.0)
[2024-06-12 13:45] LABS: Free T4 1.23 ng/dl (0.78-2.19)
--- NOTE | 2024-06-12 15:23 | W.PN.CD ---
Today's Communication / Plan
-
agree with IV BID Lasix increase
hep gtt to continue
warfarin tonight
Impression / Plan
-
HFpEF with cor pulmonale:
-acute on chronic.
-Wt is 15kg up from Last bp visit
-agree with increase in lasix to BID
.
Permanent atrial fibrillation. Stable and rate controlled patient on anticoagulation for mechanical mitral valve and A-fib.
.
Mechanical mitral valve. Continue anticoagulation with Coumadin target INR 2.5-3.5. With her issues with recurrent hemorrhoidal bleeding would be cautious not to allow her INR to get too high.
- INR subtherapeuitc. now up to 2.0
- continue heparin bridge.
History of TAVR
.
History of GI bleed/hemorrhoidal bleeding. Recent hospitalization. 1 episode of bleeding at rehab. Monitor for recurrence.
..
JOJO. Acute on chronic, nephrology now following. c
.
Coronary artery disease/history of coronary bypass grafting. No chest discomfort to suggest angina. Continue with medical therapy.
Abnormal troponin 0.078. No complaints of chest pain. Follow serial troponin
.
Single-chamber ICD
Subjective:
she is sob, cough
Physical Exam
Vital Signs/Labs
Vital Signs
Temp Pulse Resp BP Pulse Ox
97.5 F 94 16 136/83 98
06/12/24 14:00 06/12/24 13:13 06/12/24 13:13 06/12/24 12:40 06/12/24 13:13
06/11/24 06/12/24 06/13/24
06:59 06:59 06:59
Actual Weight 83.574 kg 85.729 kg 86.5 kg
06/12/24 07:21
06/12/24 07:21
PT 23.3 Sec (11.4-14.6) H 06/12/24 07:21
INR 2.01 06/12/24 07:21
APTT Cancelled 06/12/24 18:00
Magnesium 2.4 mg/dl (1.6-2.3) H 06/11/24 09:29
Free T4 1.23 ng/dl (0.78-2.19) 06/12/24 07:21
06/10/24
15:21
Vwp-D-Yzmrswtelir Pept 4900
LAB Results
06/10/24 06/10/24 06/11/24
15:21 19:05 03:10
Troponin I 0.078 H* 0.073 H* 0.076 H*
06/11/24
09:29
Troponin I 0.088 H*
Physical Exam
Cardiovascular: Rhythm/rate is irregular, Pedal edema present (2+ b/l) and Systolic murmur present
Respiratory: Wheeze Absent, Crackles Absent, Labored respirations (increased respiratory rate) and Other (coughs with every breath, decreased at the left base)
Neuro/Psych: AO x 3
Data Reviewed
-
Date of Service: June 12, 2024
Medical Decision Making: Review of Case with other Provider (Resident physician give warfarin 3 mg tonight continue heparin gtt)
[2024-06-12 16:34] LABS: Urine Sodium 36 mmol/L (30-90)
[2024-06-12] MEDS: ZYLOPRIM 100 MG PO (17:24)
[2024-06-12] MEDS: KCL 10 MEQ PO (17:24)
[2024-06-12] MEDS: NOVOLOG FLEXPEN-LOW RESISTANCE 1 UNITS SC (17:24)
[2024-06-12 17:25] LABS: Glucose - Point of Care 166 mg/dl (70-99)
[2024-06-12] MEDS: COUMADIN 3 MG PO (17:29)
[2024-06-12 21:26] LABS: Glucose - Point of Care 207 mg/dl (70-99)
[2024-06-12] MEDS: ROBITUSSIN DM 5 ML PO (21:56)
[2024-06-12 22:12] LABS: APTT 103.4 Sec (23.4-35.0)
[2024-06-12] MEDS: AMBIEN 5 MG PO (22:55)
[2024-06-12] MEDS: COMPAZINE 5 MG IV (23:46)
[2024-06-13] VITALS (7 sets, daily range): BP systolic 93–158; BP diastolic 63–90; PULSE 79; O2SAT 97; BMI 32.6
--- NOTE | 2024-06-13 04:43 | PTCARENOTE ---
Yocasta hugger reapplied at 0330, rectal temp 96. 1 hr later, temp 96.3 but pt had yocasta hugger blanket off. Reapplied and reeducated on importance of keeping it on. Other VSS. Will continue to monitor.
[2024-06-13 05:42] LABS: INR 2.14; PT 24.3 Sec (11.4-14.6)
[2024-06-13 05:45] LABS: APTT 133.1 Sec (23.4-35.0)
[2024-06-13 06:00] LABS: Blood Urea Nitrogen 89 mg/dl (7-17); Carbon Dioxide 18 mmol/L (22-30); Chloride 102 mmol/L (98-107); Estimated Creatinine Clearance 21 ml/min; Glucose 112 mg/dl (70-99); Potassium 4.1 mmol/L (3.5-5.1); Sodium 135 mmol/L (135-145); eGFR 20.96
--- NOTE | 2024-06-13 07:27 | W.PN.HOSP.TC ---
Today's Communication/Plan
-
Increase IV Lasix
Continue heparin bridge
Follow INR, PTT
Wound care
Assessment / Plan
Assessment / Plan
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
2008, CKD stage IV, who presented to ED on 06/10/2024 with worsening SOB, fatigue with reported 13 pounds weight gain over 11 days. She also notes worsening edema involving both arms and legs patient's torsemide was recently increased and her
outpatient renal function has worsened per blood work.
Assessment/plan:
#Decompensated HFpEF with RV failure
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
-Increase IV Lasix to 80 mg twice daily, consider adding metolazone if no response.
-Nephrology following.
-JENI 06/11 with normal EF, evidence of RV volume overload, dilated RA, RV with reduced systolic function.
-May require RHC.
-Follow BMP.
-Follow I's and O's and daily weights.
-Monitor and replete electrolytes.
-Cardiology following.
-PT/OT.
#Intermittent hypothermia
-Unclear etiology. TSH 5.10, not enough to treat subclinical hypothyroidism.
-Continue Yocasta hugger with warm blankets.
-Follow temperature curve.
#Permanent A-fib
-Stable and rate controlled.
-Continue beta-claire.
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
-INR 2.14, APTT 133.1
-Continue heparin bridge until INR therapeutic.
-Follow INR, PTT.
-Has a history of GI bleed, will continue monitoring closely.
#JOJO on CKD stage IV-cardiorenal process.
-Creatinine stable at 2.3, baseline 1.6.
-Follow with diuresis.
-Nephrology following.
#Stage 1 decubitus sacral pressure wound-Present on arrival.
-Wound dressing, pressure offload.
#Elevated LFTs
-Suggest vascular congestion
-Hold statin and trend LFTs.
#Acute on chronic anion gap metabolic acidosis
-Responds to sodium bicarbonate therapy.
# Nonischemic myocardial injury with RV strain
-Abnormal troponin peaked at 0.088, no evidence of chest pain.
-Ongoing RV strain with RV volume overload.
-Continue diuresis and monitor.
#Wheezing on exam-denies smoking, COPD or asthma history.
-Continue bronchodilators and incentive spirometry.
-Unclear etiology, most likely from atelectasis.
-CXR clear.
-Continue diuresis
-Requires outpatient pulmonary evaluation.
#SIRS (tachypnea, tachycardia, hypothermia)
-Does meet SIRS criteria, however low suspicion for infection.
-Continue to monitor.
#Acute thrombocytopenia
-Stable at 98,000
-Will monitor on heparin.
-If worsening, we will assess for HIT.
#Essential hypertension
-Continue metoprolol.
#DM type II
-Recent A1c 6.4%
-Maintain on low SSI
Valvular heart disease�history of mechanical valve replacement
DVT PPx: Heparin
CODE STATUS: DNR/DNI
Data:
Echo 06/11/2024:
Normal left ventricular size with low normal systolic function. LVEF 50-55%. No regional wall motion abnormalities.
Enlarged right ventricle with moderately reduced systolic function. Evidence of RV volume overload with diastolic flattening of the septum. Severely dilated right atrium with RA pressure of 15 mmHg.
Normal functioning mechanical mitral valve.
Normal functioning TAVR valve.
Torrential tricuspid regurgitation. Unable to estimate PASP.
Compared to prior echocardiogram on 08/15/2023 there is no significant change.
CXR 06/10/2024:
Small patchy right basilar opacity which could represent subsegmental atelectasis and/or pneumonia and tiny right pleural effusion.
Anticipated Discharge: > 48 hours
Subjective/Interval History
-
Date of Service: June 13, 2024
Patient seen and examined lying in bed. Complained of weakness and as she was sleep deprived due to constant blood draw last night. She also complained of feeling thirsty and asking for some ice chips. She continues to have intermittent
hypothermia lowest 94.3 Fahrenheit in 24 hours but responding to Yocasta hugger. She also has mild wheezing more prominent in the left upper lobes. She also has residual SOB and wheezing but denies chest pain, palpitations, fever, chills. Overnight,
patient's nurse reported minimal urine output of about 100 mL/h while on 80 mg IV Lasix. Her vitals remained stable, however she only lost 1 lb in the past 24 hours.
Objective Data
-
Labs:
Laboratory Results
06/12/24 06/13/24 06/13/24
21:50 05:14 06:00
WBC
Hgb
Hct
Plt Count
PT 24.3 H Cancelled
INR 2.14 Cancelled
APTT 103.4 H 133.1 H
Sodium 135
Potassium 4.1
Chloride 102
Carbon Dioxide 18 L
BUN 89 H
Creatinine 2.3 H
Glucose 112 H
Calcium 9.0
06/13/24
07:23
WBC Pending
Hgb Pending
Hct Pending
Plt Count Pending
PT
INR
APTT
Sodium Pending
Potassium Pending
Chloride Pending
Carbon Dioxide Pending
BUN Pending
Creatinine Pending
Glucose Pending
Calcium Pending
Vital Signs:
Vital Signs
Temp Pulse Resp BP Pulse Ox
96.3 F L 67 16 93/63 97
06/13/24 04:42 06/13/24 03:05 06/13/24 03:05 06/13/24 03:05 06/13/24 03:05
I&O
06/12/24 06/13/24 06/14/24
06:59 06:59 06:59
Intake Total 720 / 720 600 / 600
Output Total 1330 / 1330
Balance 720 / 720 -730 / -730
Review of Systems
-
History Source: Patient
All other systems: Not reviewed unless documented
Constitutional: Reports No Symptoms; Denies Fever, Fatigue or Chills
EENT: Reports No Symptoms Reported
Respiratory: Reports No Symptoms and Wheezing; Denies Cough or Trouble Breathing
Cardiac: Reports No Symptoms; Denies Chest Pain or Palpitations
Abdomen/GI: Reports No Symptoms; Denies Abdominal Pain, Nausea or Vomiting
Genitourinary: Reports No Symptoms
Neuro: Reports No Symptoms; Denies Dizzy or Headache
Physical Exam
-
General: No Apparent Distress, Comfortable and Other (Anasarca)
HEENT: Negative Oxygen
Respiratory: Clear to Auscultation; Negative Rhonchi
Cardiac: S1/S2 and Irregular Rhythm; Negative Murmur or Rub
GI: Soft, Nontender, Nondistended and Normal Bowel Sounds
Musculoskeletal: No Clubbing, Edema, Right Lower Extrem and Edema, Left Lower Extrem
Skin: Warm
Neuro: Awake, Alert, Oriented, No Motor Deficits and Nonfocal/Grossly Intact
Psych: Calm
Data Reviewed
-
Diagnostic Radiology: Image personally visualized and interpreted, Report Reviewed by me and Discussed with Physician
Medical Tests (Nuc Med, Echo etc): Image personally visualized and interpreted, Report Reviewed by me and Discussed with Physician
Labs: Labs Reviewed by me and Discussed with Physician
Old Records: Reviewed
[2024-06-13 07:58] LABS: Glucose - Point of Care 96 mg/dl (70-99)
[2024-06-13 08:14] LABS: Hematocrit 34.7 % (37.0-47.0); Hemoglobin 11.5 g/dL (12.0-16.0); Mean Corp Hgb Conc. 33.1 g/dL (33.0-37.0); Mean Corpuscular Hgb 32.3 pg (27.0-31.0); Mean Corpuscular Volume 97.5 fL (81.0-99.0); Mean Platelet Volume 12.9 fL (7.4-10.4); Platelet Count 98 10^3/uL (130-400); Red Blood Cell Count 3.56 10^6/uL (4.20-5.40); Red Cell Dist. Width 15.7 % (11.5-14.5); White Blood Cell Count 4.8 10^3/uL (4.8-10.8)
[2024-06-13 08:22] LABS: Blood Urea Nitrogen 90 mg/dl (7-17); Calcium 9.1 mg/dl (8.4-10.2); Carbon Dioxide 19 mmol/L (22-30); Chloride 102 mmol/L (98-107); Estimated Creatinine Clearance 21 ml/min; Glucose 102 mg/dl (70-99); Potassium 3.9 mmol/L (3.5-5.1); Sodium 136 mmol/L (135-145); eGFR 20.96
--- NOTE | 2024-06-13 08:26 | PTCARENOTE ---
patient's rectal temp 97.2. she has reached target temperature goal. Yocasta glover left off, will continue to monitor.
[2024-06-13] MEDS: FIBERCON PO (08:27)
[2024-06-13] MEDS: SODIUM BICARBONATE 1300 MG PO (08:27)
[2024-06-13] MEDS: SENOKOT-S PO ×2 (08:27→20:38)
[2024-06-13] MEDS: FEOSOL 325 MG PO (08:28)
[2024-06-13] MEDS: DELTASONE 10 MG PO (08:28)
[2024-06-13] MEDS: PROTONIX 40 MG PO ×2 (08:28→21:18)
[2024-06-13] MEDS: DESENEX/MITRAZOL/ZEASORB 1 APPLIC TOPICAL ×2 (08:28→21:22)
[2024-06-13] MEDS: TOPROL XL 25 MG PO ×2 (08:28→21:18)
[2024-06-13] MEDS: LASIX 80 MG IV ×2 (08:29→17:38)
[2024-06-13] MEDS: NOVOLOG FLEXPEN-LOW RESISTANCE SC (08:31)
--- NOTE | 2024-06-13 10:16 | PN.CDI ---
CDI
- -
CDI:
Physician Documentation Request
Admit Date: 06/10/24 19:24
Dear Doctor,
Please review the following and provide your response in the progress notes.
Clinical Indicators:
- RN skin assessments indicate Stage 1 sacrum pressure injury, POA
Physician documentation of the type and location of wounds is required for compliant documentation. Based on the above clinical findings and your assessment, please provide the following in your progress note:
1. Location of the ulcer/wound, including laterality.
2. Type (etiology) of ulcer/wound:
- Diabetic ulcer
- Arterial (ischemic) ulcer
- Traumatic wound
- Venous stasis ulcer
- Pressure (decubitus) ulcer
- Non-healing surgical wound
- Other
- Unable to determine
Use of terms such as suspected, likely, concern for, or probable (associated with a specific diagnosis that is being evaluated, monitored, or treated as if it exists) are acceptable and can be coded in the inpatient setting, when documented at the
time of discharge.
Thank you,
Yissel Jenkins RN
CDI Specialist
Please use your independent medical judgment in providing your response.
*Source: National Pressure Ulcer Advisory Panel (NPUAP)
[2024-06-13] MEDS: XOPENEX 0.63 MG INHALANT SOLUTION INH (10:33)
[2024-06-13 11:49] LABS: Glucose - Point of Care 163 mg/dl (70-99)
--- NOTE | 2024-06-13 12:08 | CM ---
Received a call from Yaneli in admissions at [facility]. She wanted an update regarding patient. She was advised that patient will need to go to SNF, prior to returning home with resumption of services. Will f/u with [facility] to determine bed
availability.
Plan: Case management will continue to follow and assist with discharge planning. SNF when stable.
[2024-06-13] MEDS: NOVOLOG FLEXPEN-LOW RESISTANCE 1 UNITS SC ×2 (13:50→18:26)
--- NOTE | 2024-06-13 14:12 | W.PN.NEPH.PH ---
Today's Communication / Plan
-
add metolazone
may benefit from RHC
Assessment/Plan
-
Impression:
Acute on chr D CHF
Acute kidney injury
CKD stage IIIb with baseline creatinine 1.7
Metabolic acidosis
Permanent Atrial fibrillation on chronic anticoagulation
Hypertension
Diabetes
Valvular heart disease (hx of mechanical valve replacement)
CAD with history of CABG
ICD
Thrombocytopenia
Elevated LFTs
Plan:
Recurrent admits for GIB now presents with CHF
JOJO-suspect cardiorenal, UA with pyuria, follow bladder scan only 99cc
check U eosinophils-reordered, note she is on BID PPI
would cont lasix to 80mg BID and add metolazone , non oliguric
suspect she may need lasix gtt
cr no change at 2.3, azotemia persists BUN 90
likely benefit from RHC
cont po bicarb for chr met acidosis
BP stable on meds
off prednisone now
FR to 1400
follow LFTs
labs in am
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
present during visit
d/w nursing
-
-
Date of Service: June 13, 2024
CC / HPI / ROS
-
Chief Complaint:
JOJO with CKD
History of Present Illness:
cr no change at 2.3, azotemia BUN 90
wt no sig change
BP stable
met acidosis stable on po bicarb
Review of Systems:
no cp
no n/v
no SOB at rest but sig edema
Labs
-
Labs:
WBC 4.8 10^3/uL (4.8-10.8) 06/13/24 07:53
RBC 3.56 10^6/uL (4.20-5.40) L 06/13/24 07:53
Hgb 11.5 g/dL (12.0-16.0) L 06/13/24 07:53
Hct 34.7 % (37.0-47.0) L 06/13/24 07:53
Plt Count 98 10^3/uL (130-400) L 06/13/24 07:53
Sodium 136 mmol/L (135-145) 06/13/24 07:53
Potassium 3.9 mmol/L (3.5-5.1) 06/13/24 07:53
Chloride 102 mmol/L (98-107) 06/13/24 07:53
Carbon Dioxide 19 mmol/L (22-30) L 06/13/24 07:53
BUN 90 mg/dl (7-17) H 06/13/24 07:53
Creatinine 2.3 mg/dL (0.6-1.0) H 06/13/24 07:53
eGFR 20.96 06/13/24 07:53
Glucose 102 mg/dl (70-99) H 06/13/24 07:53
Calcium 9.1 mg/dl (8.4-10.2) 06/13/24 07:53
Phosphorus 5.2 mg/dl (2.5-4.5) H 06/11/24 09:29
Rms-Y-Yinlgkvrvkq Pept 4900 pg/ml 06/10/24 15:21
Albumin 4.1 g/dl (3.5-5.0) 06/11/24 09:29
Physical Exam
-
Vital Signs:
Vital Signs
Temp Pulse Resp BP Pulse Ox
97 F 69 16 158/90 98
06/13/24 11:30 06/13/24 11:13 06/13/24 11:13 06/13/24 11:13 06/13/24 11:13
Cardiovascular:: Regular rate and rhythm
Respiratory:: Bilateral: CTA (decreased)
Lung Excursion:: Normal
Abdomen:: Nontender and Soft
Extremity Edema:: +3: Bilateral:
Rockwell Catheter: No
[2024-06-13] MEDS: ZAROXOLYN 5 MG PO (14:38)
[2024-06-13] MEDS: HEPARIN 25000 UNITS/250 ML IV (14:44)
--- NOTE | 2024-06-13 15:56 | PTCARENOTE ---
patient has remained off Yocasta hugger. has intermittent GARCIA expiratory wheezes, +DOBBINS, still with significant edema, CR level no change and weight without significant change. Zaroxyln started to try and decrease significant edema and pull fluid off,
sitting oob in chair, tolerating activity, will continue to monitor.
[2024-06-13 16:29] LABS: Glucose - Point of Care 199 mg/dl (70-99)
[2024-06-13] MEDS: KCL 10 MEQ PO (17:37)
[2024-06-13] MEDS: COUMADIN 3 MG PO (17:37)
[2024-06-13] MEDS: ZYLOPRIM 100 MG PO (17:38)
--- NOTE | 2024-06-13 17:38 | W.PN.CD ---
Today's Communication / Plan
-
metolazone added
considering lasix gtt
will plan for RHC on Sunday---added to schedule and npo p mn on Sunday
Impression / Plan
-
HFpEF with cor pulmonale:
-acute on chronic.
-Finding it difficult to mobilize fluid, metolazone added today before evening dose.
-Agree with assessment that right heart cath could be helpful. Will put on schedule for Sunday n.p.o. after midnight on Sunday
in the room I updated him about the right heart cath.
-May trial a lasix gtt in the meantime
Permanent atrial fibrillation. Stable and rate controlled patient on anticoagulation for mechanical mitral valve and A-fib.
.
Mechanical mitral valve. Continue anticoagulation with Coumadin target INR 2.5-3.5. With her issues with recurrent hemorrhoidal bleeding would be cautious not to allow her INR to get too high.
- INR subtherapeuitc. now up to 2.1
- continue heparin bridge.
History of TAVR
.
History of GI bleed/hemorrhoidal bleeding. Recent hospitalization. 1 episode of bleeding at rehab. Monitor for recurrence.
..
JOJO. Acute on chronic, nephrology now following. c
.
Coronary artery disease/history of coronary bypass grafting. No chest discomfort to suggest angina. Continue with medical therapy.
Abnormal troponin 0.078. No complaints of chest pain. Follow serial troponin
.
Single-chamber ICD
Subjective:
she is tired and cold, lethargic
Physical Exam
Vital Signs/Labs
Vital Signs
Temp Pulse Resp BP Pulse Ox
97 F 86 16 138/84 97
06/13/24 11:30 06/13/24 15:03 06/13/24 15:03 06/13/24 15:03 06/13/24 15:03
06/12/24 06/13/24 06/14/24
06:59 06:59 06:59
Actual Weight 85.729 kg 85.956 kg
06/13/24 07:53
06/13/24 07:53
PT Cancelled 06/13/24 06:00
INR Cancelled 06/13/24 06:00
APTT 49.0 Sec (23.4-35.0) H 06/13/24 13:37
Magnesium 2.4 mg/dl (1.6-2.3) H 06/11/24 09:29
Free T4 1.23 ng/dl (0.78-2.19) 06/12/24 07:21
06/10/24
15:21
Hkj-M-Reqbrraevms Pept 4900
LAB Results
06/10/24 06/11/24 06/11/24
19:05 03:10 09:29
Troponin I 0.073 H* 0.076 H* 0.088 H*
Physical Exam
Constitutional: No acute distress
Cardiovascular: Rhythm & rate is regular, Systolic murmur present (mechanical S1) and Other (anasarca)
Respiratory: Respiratory effort normal, Lungs clear to auscul., Wheeze Absent and Crackles Absent
GI: Soft
Neuro/Psych: AO x 3
Data Reviewed
-
Date of Service: June 13, 2024
Medical Decision Making: Review of Case with other Provider (d/w Dr Cabrera and Dr Russell will add for rhc sunday)
EKG: Other
Medical Tests (PFT, Pathology etc): Discussed with Family ( at the bedside discussed rhc)
[2024-06-13] MEDS: AMBIEN 5 MG PO (22:59)
[2024-06-14] VITALS (7 sets, daily range): BP systolic 113–139; BP diastolic 76–90; PULSE 80; BMI 32.4
[2024-06-14 03:57] LABS: Hematocrit 33.5 % (37.0-47.0); Hemoglobin 10.9 g/dL (12.0-16.0); Mean Corp Hgb Conc. 32.5 g/dL (33.0-37.0); Mean Corpuscular Hgb 31.3 pg (27.0-31.0); Mean Corpuscular Volume 96.3 fL (81.0-99.0); Mean Platelet Volume 12.6 fL (7.4-10.4); Platelet Count 86 10^3/uL (130-400); Red Blood Cell Count 3.48 10^6/uL (4.20-5.40); Red Cell Dist. Width 15.6 % (11.5-14.5); White Blood Cell Count 5.1 10^3/uL (4.8-10.8)
[2024-06-14 04:05] LABS: APTT 123.3 Sec (23.4-35.0)
[2024-06-14 04:09] LABS: Blood Urea Nitrogen 87 mg/dl (7-17); Calcium 8.9 mg/dl (8.4-10.2); Carbon Dioxide 21 mmol/L (22-30); Chloride 100 mmol/L (98-107); Estimated Creatinine Clearance 22 ml/min; Glucose 146 mg/dl (70-99); Potassium 3.8 mmol/L (3.5-5.1); Sodium 135 mmol/L (135-145); eGFR 22.11
[2024-06-14 06:51] LABS: INR 2.48; PT 26.9 Sec (11.4-14.6)
[2024-06-14 09:09] LABS: Glucose - Point of Care 108 mg/dl (70-99)
[2024-06-14] MEDS: NOVOLOG FLEXPEN-LOW RESISTANCE SC ×2 (09:09→12:31)
[2024-06-14] MEDS: SENOKOT-S 1 TABLET PO ×2 (09:13→20:24)
[2024-06-14] MEDS: LASIX 80 MG IV ×2 (09:14→17:15)
[2024-06-14] MEDS: FIBERCON 625 MG PO (09:14)
[2024-06-14] MEDS: TOPROL XL 25 MG PO ×2 (09:14→20:24)
[2024-06-14] MEDS: FEOSOL 325 MG PO (09:14)
[2024-06-14] MEDS: PROTONIX 40 MG PO ×2 (09:14→20:24)
[2024-06-14] MEDS: DESENEX/MITRAZOL/ZEASORB 1 APPLIC TOPICAL ×2 (09:17→20:25)
[2024-06-14] MEDS: SODIUM BICARBONATE 1300 MG PO (09:17)
[2024-06-14 11:08] LABS: APTT 152.1 Sec (23.4-35.0)
--- NOTE | 2024-06-14 11:36 | W.PN.NEPH.PH ---
Today's Communication / Plan
-
Check postvoid bladder scan if greater than [address] Red catheter
Maintain IV diuretic
Daily basic metabolic panel
Assessment/Plan
-
Impression:
Acute on chr D CHF
Acute kidney injury
CKD stage IIIb with baseline creatinine 1.7
Metabolic acidosis
Permanent Atrial fibrillation on chronic anticoagulation
Hypertension
Diabetes
Valvular heart disease (hx of mechanical valve replacement)
CAD with history of CABG
ICD
Thrombocytopenia
Elevated LFTs
Plan:
Recurrent admits for GIB now presents with CHF
JOJO-suspect cardiorenal, UA with pyuria, follow bladder scan only 99cc
check U eosinophils-reordered, note she is on BID PPI
would continue lasix to 80mg BID and add metolazone , non oliguric
suspect she may need lasix gtt
cr no change at 2.2, azotemia persists BUN 87
likely benefit from RHC
continue po bicarb for chr met acidosis
BP stable on meds
off prednisone now
FR to 1400
follow LFTs
labs in am
d/w pt in detail that she is at high risk of [employer] CONSULT[employer] if she fails to respond to diuretics
maintain IV lasix 80mg BID, no i/os or weights recorded
check pVR bladder scan and place red if >350cc
present during visit
d/w nursing
-
-
Date of Service: June 14, 2024
CC / HPI / ROS
-
Chief Complaint:
JOJO with CKD
History of Present Illness:
cr no change at 2.2, azotemia BUN 87
wt no sig change
BP stable
met acidosis stable on po bicarb
Review of Systems:
no cp
no n/v
no SOB at rest but sig edema
Labs
-
Labs:
WBC 5.1 10^3/uL (4.8-10.8) 06/14/24 03:22
RBC 3.48 10^6/uL (4.20-5.40) L 06/14/24 03:22
Hgb 10.9 g/dL (12.0-16.0) L 06/14/24 03:22
Hct 33.5 % (37.0-47.0) L 06/14/24 03:22
Plt Count 86 10^3/uL (130-400) L 06/14/24 03:22
Sodium 135 mmol/L (135-145) 06/14/24 03:22
Potassium 3.8 mmol/L (3.5-5.1) 06/14/24 03:22
Chloride 100 mmol/L (98-107) 06/14/24 03:22
Carbon Dioxide 21 mmol/L (22-30) L 06/14/24 03:22
BUN 87 mg/dl (7-17) H 06/14/24 03:22
Creatinine 2.2 mg/dL (0.6-1.0) H 06/14/24 03:22
eGFR 22.11 06/14/24 03:22
Glucose 146 mg/dl (70-99) H 06/14/24 03:22
Calcium 8.9 mg/dl (8.4-10.2) 06/14/24 03:22
Phosphorus 5.2 mg/dl (2.5-4.5) H 06/11/24 09:29
Cdy-O-Oqsueiiogow Pept 4900 pg/ml 06/10/24 15:21
Albumin 4.1 g/dl (3.5-5.0) 06/11/24 09:29
Physical Exam
-
Vital Signs:
Vital Signs
Temp Pulse Resp BP Pulse Ox
97.5 F 67 17 137/78 99
06/14/24 11:07 06/14/24 11:07 06/14/24 11:07 06/14/24 11:07 06/14/24 11:07
Cardiovascular:: Regular rate and rhythm
Respiratory:: Bilateral: CTA (decreased)
Lung Excursion:: Normal
Abdomen:: Nontender and Soft
Extremity Edema:: +2: Bilateral:
Red Catheter: No
--- NOTE | 2024-06-14 11:41 | W.PN.HOSP.TC ---
Today's Communication/Plan
-
Escalate diuretics per nephro/cardiology
Plan for right heart cath on Sunday
Stop heparin drip, warfarin 2.5 tonight
Trend INR, CBC, and BMP
Assessment / Plan
Assessment / Plan
#Decompensated HFpEF/RV failure
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
-Not on any GDMT for heart failure; recent echo showed reduced RV systolic function, preserved LVEF
-Was started on IV Lasix 80 mg daily which was escalated to twice daily; metolazone added subsequently
-Renal function and volume status has not improved much despite aggressive diuretic regimen
-Nephrology mention possibility of Lasix drip, agree this may be needed
-Warm and wet phenotype
Plan
-Continue with IV Lasix 80 mg twice daily, will defer starting drip to neph/cards
-Would continue with metolazone, likely daily for now but again will defer to neph
-Trend daily weights, strict I's/O's, BMP daily
-Plan for right heart cath on Sunday
-Monitor on telemetry
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
#Chronic metabolic acidosis from CKD
#Anemia of CKD
-Acute on chronic renal insufficiency in the context of type I cardiorenal syndrome
-Has been fairly resistant to improvement despite aggressive diuretics
-Planning to escalate diuresis further as above, right heart cath on Sunday
-Continue with home sodium bicarbonate, trend BMP
#Subtherapeutic INR in context of mechanical MVR
-Presented with INR 1.74; goal INR 2.5-3.5 with mechanical mitral valve
-Was started on heparin bridge and given increased dose of warfarin
-INR is back to 2.48 today, remains on heparin drip but developed epistaxis this morning
-Will speak with cardiology about stopping heparin drip at current INR and resuming home dose warfarin
-Daily INR
#Intermittent hypothermia
-Likely related to heart failure, reduced circulatory function; no signs of sepsis
-TSH 5.10, not enough to treat subclinical hypothyroidism.
-Continue Yocasta hugger with warm blankets.
-Follow temperature curve.
#Permanent AF
-Home medications include beta-claire and warfarin
-No known history of electrophysiologic intervention
-Was started on heparin drip as above due to subtherapeutic warfarin
-Has been rate controlled throughout hospital stay
#Valvular heart disease
#S/P TAVR
#S/P MVR
#Severe pulmonary hypertension
-Unclear etiology, no known history of rheumatic heart disease known
-Valves examined well, no signs of insufficiency
#Stage 1 decubitus sacral pressure wound (PoA)
-Wound dressing, pressure offload.
#Elevated LFTs
-due to vascular congestion
-improving
#Nonischemic myocardial injury with RV strain
-Abnormal troponin peaked at 0.088, no evidence of chest pain or ischemia on ECG.
-Ongoing RV strain with RV volume overload.
#Essential hypertension
-No known history of hypertensive systemic disease
-Home medications include metoprolol, no first-line agent
#T2DM
-Recent A1c 6.4%; no known microvascular complications
-Maintain on low SSI
-BG goal 100-200, avoid hypoglycemia
DVT PPx: Stop heparin drip, resume warfarin
Diet: Regular
CODE STATUS: DNR/DNI
Anticipated Discharge: > 48 hours
Subjective/Interval History
-
Date of Service: June 14, 2024
Seen and examined at the bedside. No acute events reported overnight. AFVSS this morning.
INR returned at 2.48 this morning.
Upon my evaluation she developed a mild nosebleed. Otherwise stated she felt fine today and denied any acute complaints
Objective Data
-
Labs:
Laboratory Results
06/14/24 06/14/24 06/14/24
03:22 06:00 10:14
WBC 5.1
Hgb 10.9 L
Hct 33.5 L
Plt Count 86 L
PT 26.9 H Cancelled
INR 2.48 Cancelled
APTT 123.3 H 152.1 H*
Sodium 135
Potassium 3.8
Chloride 100
Carbon Dioxide 21 L
BUN 87 H
Creatinine 2.2 H
Glucose 146 H
Calcium 8.9
Vital Signs:
Vital Signs
Temp Pulse Resp BP Pulse Ox
97.5 F 67 17 137/78 99
06/14/24 11:07 06/14/24 11:07 06/14/24 11:07 06/14/24 11:07 06/14/24 11:07
I&O
06/13/24 06/14/24 06/15/24
06:59 06:59 06:59
Intake Total 600 / 600 840 / 840
Output Total 1330 / 1330
Balance -730 / -730 840 / 840
Review of Systems
-
History Source: Patient
All other systems: Reviewed and negative
Physical Exam
-
General: No Apparent Distress, Comfortable and Obese
HEENT: Normocephalic, Atraumatic, Moist Mucous Membranes and Anicteric
Respiratory: Clear to Auscultation and Non Labored Respirations; Negative Accessory Resp Muscle Use
Cardiac: Regular Rhythm, S1/S2, Murmur, JVD and Other (2+ lower extremity pitting edema bilaterally); Negative Rub or Gallop
GI: Soft, Nontender, Nondistended and Normal Bowel Sounds
Musculoskeletal: No Clubbing and No Cyanosis
Skin: Warm, Dry and Normal Turgor; Negative Rash
Neuro: AO x 3 and Nonfocal/Grossly Intact
Psych: Calm
Data Reviewed
-
Labs: Labs Reviewed by me, Discussed with Physician (Administration Assistant) and Discussed with Patient
[2024-06-14 12:23] LABS: Glucose - Point of Care 145 mg/dl (70-99)
[2024-06-14 14:34] LABS: Body Fluid for Eosinophils No Eosinophils seen
--- NOTE | 2024-06-14 15:33 | W.PN.CD ---
Today's Communication / Plan
-
IV heparin stopped
Continue dosing of coumadin and monitor INR
slow reduction in weight
metolazone 5mg today
will plan for RHC on Sunday
Impression / Plan
-
HFpEF with cor pulmonale:
-acute on chronic.
-Finding it difficult to mobilize fluid, metolazone added today before evening dose.
-Plan for right heart cath Sunday. n.p.o. after midnight on Sunday
Permanent atrial fibrillation. Stable and rate controlled patient on anticoagulation for mechanical mitral valve and A-fib.
.
Mechanical mitral valve. Continue anticoagulation with Coumadin target INR 2.5-3.5. With her issues with recurrent hemorrhoidal bleeding would be cautious not to allow her INR to get too high.
- INR 2.48.
- stop IV Heparin
History of TAVR
.
History of GI bleed/hemorrhoidal bleeding. Recent hospitalization. 1 episode of bleeding at rehab. Monitor for recurrence.
..
JOJO. Acute on chronic, nephrology now following. c
.
Coronary artery disease/history of coronary bypass grafting. No chest discomfort to suggest angina. Continue with medical therapy.
Abnormal troponin 0.078. No complaints of chest pain. Follow serial troponin
.
Single-chamber ICD
Subjective:
No sob
Physical Exam
Vital Signs/Labs
Vital Signs
Temp Pulse Resp BP Pulse Ox
97.4 F 66 17 129/80 98
06/14/24 15:09 06/14/24 15:09 06/14/24 15:09 06/14/24 15:09 06/14/24 15:09
06/13/24 06/14/24 06/15/24
06:59 06:59 06:59
Actual Weight 85.956 kg 85.445 kg
06/14/24 03:22
06/14/24 03:22
PT Cancelled 06/14/24 06:00
INR Cancelled 06/14/24 06:00
APTT 152.1 Sec (23.4-35.0) H* 06/14/24 10:14
Magnesium 2.4 mg/dl (1.6-2.3) H 06/11/24 09:29
Free T4 1.23 ng/dl (0.78-2.19) 06/12/24 07:21
06/10/24
15:21
Mls-Q-Mhtyspncdhl Pept 4900
Physical Exam
Constitutional: No acute distress
EENT: Anicteric
Cardiovascular: Rhythm & rate is regular
Respiratory: Wheeze Absent and Rhonchi Absent
GI: Soft
Neuro/Psych: Alert
Other: Other (aydin lower ext edema)
Data Reviewed
-
Date of Service: June 14, 2024
Medical Decision Making: Reviewed Test Results
Medical Tests (PFT, Pathology etc): Report Reviewed by me
Labs: Labs Reviewed by me
[2024-06-14 16:42] LABS: Glucose - Point of Care 152 mg/dl (70-99)
[2024-06-14] MEDS: COUMADIN 2.5 MG PO (17:15)
[2024-06-14] MEDS: ZYLOPRIM 100 MG PO (17:15)
[2024-06-14] MEDS: KCL 10 MEQ PO (17:15)
[2024-06-14] MEDS: ZAROXOLYN 5 MG PO (17:17)
[2024-06-14] MEDS: NOVOLOG FLEXPEN-LOW RESISTANCE 1 UNITS SC (17:18)
[2024-06-14 21:44] LABS: Glucose - Point of Care 176 mg/dl (70-99)
[2024-06-14] MEDS: AMBIEN 5 MG PO (23:16)
[2024-06-15 03:00] VITALS: BP 106/58
[2024-06-15 06:00] VITALS: BMI 31.3
[2024-06-15 07:37] LABS: INR 2.68; PT 28.5 Sec (11.4-14.6)
[2024-06-15 07:45] VITALS: BP 125/80
[2024-06-15 07:50] LABS: Blood Urea Nitrogen 85 mg/dl (7-17); Calcium 9.4 mg/dl (8.4-10.2); Carbon Dioxide 28 mmol/L (22-30); Chloride 95 mmol/L (98-107); Estimated Creatinine Clearance 22 ml/min; Glucose 123 mg/dl (70-99); Potassium 3.4 mmol/L (3.5-5.1); Sodium 136 mmol/L (135-145); eGFR 23.38
[2024-06-15 08:15] LABS: % Basophils 0.1 % (0-2); % Eosinophils 2.7 % (0-6); % Immature Granulocytes 1.7 % (0-0.5); % Lymphocytes 7.4 % (20.5-51.1); % Monocytes 8.4 % (1.7-9.3); % Neutrophils 79.7 % (42.2-75.2); Absolute Eosinophils 0.2 10^3/uL (0-0.7); Absolute Immature Granulocytes 0.1 10^3/uL (0-0.05); Absolute Lymphocytes 0.6 10^3/uL (1.2-3.4); Absolute Monocytes 0.7 10^3/uL (0.1-0.6); Absolute Neutrophils 6.3 10^3/uL (1.4-6.5); Hematocrit 37.5 % (37.0-47.0); Hemoglobin 12.7 g/dL (12.0-16.0); Mean Corp Hgb Conc. 33.9 g/dL (33.0-37.0); Mean Corpuscular Hgb 33.2 pg (27.0-31.0); Mean Corpuscular Volume 97.9 fL (81.0-99.0); Mean Platelet Volume 13.4 fL (7.4-10.4); Nucleated Red Blood Cells % 0.3 %; Platelet Count 85 10^3/uL (130-400); Red Blood Cell Count 3.83 10^6/uL (4.20-5.40); Red Cell Dist. Width 15.5 % (11.5-14.5); White Blood Cell Count 7.9 10^3/uL (4.8-10.8)
[2024-06-15 08:36] LABS: Glucose - Point of Care 119 mg/dl (70-99)
[2024-06-15] MEDS: NOVOLOG FLEXPEN-LOW RESISTANCE SC (08:39)
[2024-06-15] MEDS: PROTONIX 40 MG PO ×2 (08:51→20:20)
[2024-06-15] MEDS: TOPROL XL 25 MG PO (08:51)
[2024-06-15] MEDS: SODIUM BICARBONATE 1300 MG PO (08:52)
[2024-06-15] MEDS: ZAROXOLYN 5 MG PO (08:52)
[2024-06-15] MEDS: FEOSOL 325 MG PO (08:53)
[2024-06-15] MEDS: SENOKOT-S 1 TABLET PO ×2 (08:53→20:20)
[2024-06-15] MEDS: LASIX 80 MG IV ×2 (08:53→17:31)
[2024-06-15] MEDS: FIBERCON 625 MG PO (08:55)
[2024-06-15] MEDS: DESENEX/MITRAZOL/ZEASORB 1 APPLIC TOPICAL ×2 (08:56→20:20)
[2024-06-15] MEDS: KCL 40 MEQ PO ×2 (09:10→20:20)
--- NOTE | 2024-06-15 10:55 | W.PN.CD ---
Today's Communication / Plan
-
Continue diuresis with close monitoring of renal function and potassium.
Treatment of hypokalemia being directed by hospitalist.
Coumadin 1 mg tonight. Possible right heart cath tomorrow
Impression / Plan
-
HFpEF with cor pulmonale:
-acute on chronic.
- metolazone added last 2 days with additional output
-Plan for right heart cath Sunday. n.p.o. after midnight on Sunday
Permanent atrial fibrillation. Stable and rate controlled patient on anticoagulation for mechanical mitral valve and A-fib.
.
Mechanical mitral valve. Continue anticoagulation with Coumadin target INR 2.5-3.5. With her issues with recurrent hemorrhoidal bleeding would be cautious not to allow her INR to get too high.
- INR target 2.5-3.5
- stop IV Heparin
History of TAVR
.
History of GI bleed/hemorrhoidal bleeding. Recent hospitalization. 1 episode of bleeding at rehab. Monitor for recurrence.
..
JOJO. Acute on chronic, nephrology now following. slow improvemnt c
.
Coronary artery disease/history of coronary bypass grafting. No chest discomfort to suggest angina. Continue with medical therapy.
Abnormal troponin 0.078. No complaints of chest pain. Follow serial troponin
.
Single-chamber ICD
Subjective:
No sob
Physical Exam
Vital Signs/Labs
Vital Signs
Temp Pulse Resp BP Pulse Ox
97.2 F 96 18 125/80 97
06/15/24 07:45 06/15/24 07:45 06/15/24 07:45 06/15/24 07:45 06/15/24 07:45
06/14/24 06/15/24 06/16/24
06:59 06:59 06:59
Actual Weight 82.781 kg
06/15/24 07:09
06/15/24 07:09
PT 28.5 Sec (11.4-14.6) H 06/15/24 07:09
INR 2.68 06/15/24 07:09
APTT Cancelled 06/14/24 18:00
Magnesium 2.4 mg/dl (1.6-2.3) H 06/11/24 09:29
Free T4 1.23 ng/dl (0.78-2.19) 06/12/24 07:21
06/10/24
15:21
Pbr-H-Bkvupmenofn Pept 4900
Physical Exam
Constitutional: No acute distress
Cardiovascular: Rhythm & rate is regular and Other (mechanical s1)
Respiratory: Respiratory effort normal
GI: Soft and Non tender
Neuro/Psych: Alert
Other: Other ( bilat edema )
Data Reviewed
-
Date of Service: June 15, 2024
Medical Decision Making: Reviewed Test Results
Echo: Report Reviewed by me
Medical Tests (PFT, Pathology etc): Report Reviewed by me
Labs: Labs Reviewed by me
[2024-06-15 11:35] VITALS: BP 127/66
[2024-06-15 11:43] LABS: Glucose - Point of Care 270 mg/dl (70-99)
[2024-06-15] MEDS: NOVOLOG FLEXPEN-LOW RESISTANCE 3 UNITS SC (12:24)
--- NOTE | 2024-06-15 12:49 | W.PN.HOSP.TC ---
Addendum entered and electronically signed by Niko Cabrera DO 06/15/24 20:13:
#Hypokalemia 2/2 diuresis: 90 mEq KCl given today, continue to replete for goal K >4
Original Note:
Today's Communication/Plan
-
IV Lasix 80 twice daily, metolazone 5 mg in afternoon
Planning for RHC tomorrow
Continue warfarin and trending INR
Assessment / Plan
Assessment / Plan
#Decompensated HFpEF/RV failure
-Presented with 13 Lb weight gain [employer] in the setting of anasarca despite torsemide 20 mg daily at home
-Not on any GDMT for heart failure; recent echo showed reduced RV systolic function, preserved LVEF
-Was started on IV Lasix 80 mg daily which was escalated to twice daily; metolazone added subsequently
-Renal function and volume status has not improved much despite aggressive diuretic regimen
-Renal function, weight, volume assessment improving with Lasix and metolazone
-Warm and wet phenotype
Plan
-Continue with IV Lasix 80 mg twice daily with metolazone 5 mg daily (30 min before PM lasix)
-Trend daily weights, strict I's/O's, BMP daily
-Plan for right heart cath on Sunday
-Monitor on telemetry
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
#Chronic metabolic acidosis from CKD
#Anemia of CKD
-Acute on chronic renal insufficiency in the context of type I cardiorenal syndrome
-Has been fairly resistant to improvement despite aggressive diuretics
-Planning for right heart cath on Sunday as above
-Continue with home sodium bicarbonate, trend BMP
#Subtherapeutic INR in context of mechanical MVR
-Presented with INR 1.74; goal INR 2.5-3.5 with mechanical mitral valve
-Was started on heparin bridge and given increased dose of warfarin
-Resumed warfarin dosing yesterday, heparin drip was discontinued
-INR today 2.68, continue to trend daily
#Intermittent hypothermia
-Likely related to heart failure, reduced circulatory function; no signs of sepsis
-TSH 5.10, not enough to treat subclinical hypothyroidism.
-Continue Yocasta hugger with warm blankets.
-Follow temperature curve.
#Permanent AF
-Home medications include beta-claire and warfarin
-No known history of electrophysiologic intervention
-Was started on heparin drip as above due to subtherapeutic warfarin
-Has been rate controlled throughout hospital stay
#Valvular heart disease
#S/P TAVR
#S/P MVR
#Severe pulmonary hypertension
-Unclear etiology, no known history of rheumatic heart disease known
-Valves examined well, no signs of insufficiency
#Stage 1 decubitus sacral pressure wound (PoA)
-Wound dressing, pressure offload.
#Elevated LFTs
-due to vascular congestion
-improving
#Nonischemic myocardial injury with RV strain
-Abnormal troponin peaked at 0.088, no evidence of chest pain or ischemia on ECG.
-Ongoing RV strain with RV volume overload.
#Essential hypertension
-No known history of hypertensive systemic disease
-Home medications include metoprolol, no first-line agent
#T2DM
-Recent A1c 6.4%; no known microvascular complications
-Maintain on low SSI
-BG goal 100-200, avoid hypoglycemia
DVT PPx: Warfarin
Diet: Regular
CODE STATUS: DNR/DNI
Anticipated Discharge: > 48 hours
Subjective/Interval History
-
Date of Service: June 15, 2024
Seen and examined at the bedside. No acute events reported overnight. AFVSS this morning.
Per EMR does seem to have lost near 8 pounds since yesterday, creatinine improved from 2.3-2.1 this morning
Denies any acute complaints
Objective Data
-
Labs:
Laboratory Results
06/15/24
07:09
WBC 7.9
Hgb 12.7
Hct 37.5
Plt Count 85 L
PT 28.5 H
INR 2.68
Sodium 136
Potassium 3.4 L
Chloride 95 L
Carbon Dioxide 28
BUN 85 H
Creatinine 2.1 H
Glucose 123 H
Calcium 9.4
Vital Signs:
Vital Signs
Temp Pulse Resp BP Pulse Ox
97.6 F 94 16 127/66 99
06/15/24 11:35 06/15/24 11:35 06/15/24 11:35 06/15/24 11:35 06/15/24 11:35
I&O
06/14/24 06/15/24 06/16/24
06:59 06:59 06:59
Intake Total 840 / 840 960 / 960
Output Total 800 / 800
Balance 840 / 840 160 / 160
Review of Systems
-
History Source: Patient
All other systems: Reviewed and negative
Physical Exam
-
General: Well Developed, No Apparent Distress, Comfortable and Obese
HEENT: Normocephalic, Atraumatic, Moist Mucous Membranes and Anicteric
Respiratory: Clear to Auscultation and Non Labored Respirations
Cardiac: Regular Rhythm, S1/S2, Murmur, JVD and Other (2+ lower extremity edema); Negative Rub or Gallop
GI: Soft, Nontender, Nondistended and Normal Bowel Sounds
Musculoskeletal: No Clubbing, No Cyanosis and Normal Gait & Station
Skin: Warm, Dry and Normal Turgor; Negative Rash or Jaundice
Neuro: AO x 3 and Nonfocal/Grossly Intact
Psych: Calm
Data Reviewed
-
Labs: Labs Reviewed by me, Discussed with Physician and Discussed with Patient
--- NOTE | 2024-06-15 13:16 | W.PN.NEPH.PH ---
Today's Communication / Plan
-
Maintain IV Lasix
Follow BMP
Replete potassium
Hopeful for right heart cath earlier this week to more accurately assess volume status
Assessment/Plan
-
Impression:
Acute on chr D CHF
Acute kidney injury
CKD stage IIIb with baseline creatinine 1.7
Metabolic acidosis
Permanent Atrial fibrillation on chronic anticoagulation
Hypertension
Diabetes
Valvular heart disease (hx of mechanical valve replacement)
CAD with history of CABG
ICD
Thrombocytopenia
Elevated LFTs
Plan:
Recurrent admits for GIB now presents with CHF
JOJO-suspect cardiorenal, UA with pyuria, follow bladder scan only 99cc
check U eosinophils-negative note she is on BID PPI
would continue lasix to 80mg IV BID and add metolazone , non oliguric
suspect she may need lasix gtt
cr down to 2.1, azotemia persists BUN 85, non oliguric 700cc,weights down
likely benefit from RHC
continue po bicarb for chronic met acidosis
BP stable on meds
off prednisone now
FR to 1400
follow LFTs
labs in am
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
maintain IV lasix 80mg BID, no i/os or weights recorded
check pVR bladder scan and place red if >350cc
-
-
Date of Service: June 15, 2024
CC / HPI / ROS
-
Chief Complaint:
JOJO with CKD
History of Present Illness:
cr no change at 2.1, azotemia BUN 87
BP stable
met acidosis stable on po bicarb
Review of Systems:
no cp
no n/v
no SOB at rest but sig edema
Urine output around 800 cc
Weights lower
Labs
-
Labs:
WBC 7.9 10^3/uL (4.8-10.8) 06/15/24 07:09
RBC 3.83 10^6/uL (4.20-5.40) L 06/15/24 07:09
Hgb 12.7 g/dL (12.0-16.0) 06/15/24 07:09
Hct 37.5 % (37.0-47.0) 06/15/24 07:09
Plt Count 85 10^3/uL (130-400) L 06/15/24 07:09
Sodium 136 mmol/L (135-145) 06/15/24 07:09
Potassium 3.4 mmol/L (3.5-5.1) L 06/15/24 07:09
Chloride 95 mmol/L (98-107) L 06/15/24 07:09
Carbon Dioxide 28 mmol/L (22-30) 06/15/24 07:09
BUN 85 mg/dl (7-17) H 06/15/24 07:09
Creatinine 2.1 mg/dL (0.6-1.0) H 06/15/24 07:09
eGFR 23.38 06/15/24 07:09
Glucose 123 mg/dl (70-99) H 06/15/24 07:09
Calcium 9.4 mg/dl (8.4-10.2) 06/15/24 07:09
Phosphorus 5.2 mg/dl (2.5-4.5) H 06/11/24 09:29
Vvv-E-Hoeyzrfikqw Pept 4900 pg/ml 06/10/24 15:21
Albumin 4.1 g/dl (3.5-5.0) 06/11/24 09:29
Physical Exam
-
Vital Signs:
Vital Signs
Temp Pulse Resp BP Pulse Ox
97.6 F 94 16 127/66 99
06/15/24 11:35 06/15/24 11:35 06/15/24 11:35 06/15/24 11:35 06/15/24 11:35
Cardiovascular:: Regular rate and rhythm
Respiratory:: Bilateral: CTA (decreased)
Lung Excursion:: Normal
Abdomen:: Nontender and Soft
Extremity Edema:: +2: Bilateral:
Red Catheter: No
[2024-06-15 15:30] VITALS: BP 125/73
[2024-06-15] MEDS: ZYLOPRIM 100 MG PO (17:31)
[2024-06-15] MEDS: KCL 10 MEQ PO (17:31)
[2024-06-15] MEDS: NOVOLOG FLEXPEN-LOW RESISTANCE 1 UNITS SC (17:36)
[2024-06-15 17:39] LABS: Glucose - Point of Care 159 mg/dl (70-99)
[2024-06-15] MEDS: COUMADIN 1 MG PO (17:50)
[2024-06-15 19:19] VITALS: BP 114/71
[2024-06-15] MEDS: TOPROL XL PO (20:22)
[2024-06-15 21:47] LABS: Glucose - Point of Care 151 mg/dl (70-99)
[2024-06-15 22:35] VITALS: BP 107/63
[2024-06-15] MEDS: AMBIEN 5 MG PO (23:31)
[2024-06-15] MEDS: ROBITUSSIN DM 5 ML PO (23:31)
[2024-06-16] VITALS (8 sets, daily range): BP systolic 111–162; BP diastolic 69–92; PULSE 119; O2SAT 99; BMI 30.2
--- NOTE | 2024-06-16 07:14 | W.PN.HOSP.TC ---
Addendum entered and electronically signed by Christo Madrigal MD 06/16/24 15:50:
I saw and evaluated the patient. I reviewed the resident�s note and agree with findings and plan as documented in the resident�s note except for changes in my documentation
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
Echo 06/11/2024-normal LV size. EF 50 to 55%. Enlarged RV with moderately reduced systolic function. RV volume overload with diastolic flattening of the septum.Severely dilated right atrium with RA pressure of 15 mmHg. Normal functioning
mechanical mitral valve and TAVR TR
CVS: S1-S2 normal, systolic murmur at right heart border
Chest: Decreased breath sounds at bases
Abdomen: Soft, NT
Extremities: B/L Pedal edema
# Acute on chronic HFpEF with cor pulmonale
Continue diuresis with Lasix 80 mg IV twice daily. Metolazone added.
Daily weights, intake output charting, CHF education
Patient was on torsemide 20 mg daily as outpatient
Patient is diuresing well therefore right heart cath canceled.
Weight coming down
# Hypokalemia-replaced
# Elevated troponin-nonischemic myocardial injury
# Mildly elevated TSH with normal T4. Needs repeat in 6 weeks
# Coronary artery disease with history of CABG 2008
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
# Elevated LFTs-chronically elevated LFTs
# Thrombocytopenia- Antiplatelet AB. Get Heme eeval
# Mechanical mitral valve 2008
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
# Permanent atrial fibrillation-continue Coumadin and metoprolol
# Hypertension-continue metoprolol
# Hyperlipidemiamia -restart statin when LFTs are at her baseline
# Diabetes-was on Prandin 0.5 AC as outpatient
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
# History of gout-continue allopurinol
# Chronic anemia-continue iron sulfate
#Tremors upper ext's-present for months to years
# History of GI bleed-continue PPI
# History of subdural hematoma
# Chronic right bundle branch block
# Obesity with a BMI of 30
# Insomnia on Ambien as outpatient-continue
# DVT prophylaxis-continue Coumadin
# DNR
Discussed with patient's , daughter at bedside all questions answered.
Part of this note was created using voice recognition system. Occasional wrong word or��sound alike� substitutions may have inadvertently occurred due to the inherent limitations of voice recognition software. If noted kindly bring it to my
attention for correction.
Original Note:
Today's Communication/Plan
-
Continue IV Lasix
Antiplatelet antibody panel
Follow BMP
Monitor and replete's electrolytes
Continue warfarin
Right heart cath today
Assessment / Plan
Assessment / Plan
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
2008, CKD stage IV, who presented to ED on 06/10/2024 with worsening SOB, fatigue with reported 13 pounds weight gain over 11 days. She also notes worsening edema involving both arms and legs patient's torsemide was recently increased and her
outpatient renal function has worsened per blood work.
Assessment/plan:
#Decompensated HFpEF/RV failure
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
-Not on any GDMT for heart failure, reduced RV systolic function seen on recent echo.
-Continue IV Lasix 80 mg BID and metolazone 5 mg PO daily.
-Renal function and volume status has not improved much despite aggressive diuretic regimen.
-Follow renal function, daily I's and O's, and daily weight while on Lasix and metolazone.
-Follow and replete electrolytes.
-Cardiology following.
-Right heart cath to properly assess volume status if not responding to diuresis.
-Monitor on telemetry.
-PT/OT.
#JOJO on CKD stage IV
#Chronic metabolic acidosis from CKD
#Anemia of CKD
-Acute on chronic renal insufficiency due to type I cardiorenal syndrome.
-Resistance to aggressive diuretic therapy.
-Nephrology appreciated.
-Continue home sodium bicarbonate.
-Follow BMP.
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
-INR today at goal 2.56 (goal 2.5-3.5).
-Continue warfarin, heparin stopped.
-Trend INR.
#Intermittent hypothermia
-Likely related to heart failure, reduced circulatory function; no signs of sepsis
-TSH 5.10, not enough to treat subclinical hypothyroidism.
-Continue Yocasta hugger with warm blankets as needed.
-Follow temperature curve.
#Permanent A-fib.
-Stable, rate controlled on beta-claire.
-Will continue warfarin and follow INR.
-Consider electrophysiology intervention outpatient.
#Stage 1 decubitus sacral pressure wound (PoA)
-Wound dressing, pressure offload.
#Elevated LFTs
-Suspect due to vascular congestion versus antiplatelet antibodies
-Check antiplatelet antibody panel.
#Nonischemic myocardial injury with RV strain
-Abnormal troponin peaked at 0.088, no evidence of chest pain or ischemia on ECG.
-Ongoing RV strain with RV volume overload.
#Essential hypertension
-No known history of hypertensive systemic disease
-Home medications include metoprolol, no first-line agent
#T2DM
-Recent A1c 6.4%; no known microvascular complications
-Maintain on low SSI
-BG goal 100-200, avoid hypoglycemia
#Severe pulmonary hypertension
-Unclear etiology, no known history of rheumatic heart disease known
-Valves examined well, no signs of insufficiency
#Acute thrombocytopenia
-Stable at 98,000
-Will monitor on heparin.
-If worsening, we will assess for HIT.
#Intermittent cough
-Most likely viral, CXR clear.
-Cough suppressants as needed.
#Essential hypertension
-Continue metoprolol.
#Wheezing on exam-denies smoking, COPD or asthma history.
-Continue bronchodilators and incentive spirometry.
-Unclear etiology, most likely from atelectasis.
-CXR clear.
-Continue diuresis
-Requires outpatient pulmonary evaluation.
#Valvular heart disease
#S/P TAVR
#S/P MVR
DVT PPx: Warfarin
Diet: Regular
CODE STATUS: DNR/DNI

Data:
Echo 06/11/2024:
Normal left ventricular size with low normal systolic function. LVEF 50-55%. No regional wall motion abnormalities.
Enlarged right ventricle with moderately reduced systolic function. Evidence of RV volume overload with diastolic flattening of the septum. Severely dilated right atrium with RA pressure of 15 mmHg.
Normal functioning mechanical mitral valve.
Normal functioning TAVR valve.
Torrential tricuspid regurgitation. Unable to estimate PASP.
Compared to prior echocardiogram on 08/15/2023 there is no significant change.
CXR 06/10/2024:
Small patchy right basilar opacity which could represent subsegmental atelectasis and/or pneumonia and tiny right pleural effusion.
Anticipated Discharge: > 48 hours
Anticipated Discharge: > 48 hours
Subjective/Interval History
-
Date of Service: June 16, 2024
I have seen and examined pt. She was sitting comfortably on a chair breathing room air in no apparent cardiopulmonary distress. She reports weakness and intermittent cough that won't go away. Otherwise, she admits that she slept well. She denies
chest pain,SOB, abd pain, N/V, palpitation, She feels intermittently cold but denies fever and chills. She reports
Objective Data
-
Labs:
Laboratory Results
06/16/24
06:00
WBC Pending
Hgb Pending
Hct Pending
Plt Count Pending
PT Pending
INR Pending
Sodium Pending
Potassium Pending
Chloride Pending
Carbon Dioxide Pending
BUN Pending
Creatinine Pending
Glucose Pending
Calcium Pending
Vital Signs:
Vital Signs
Temp Pulse Resp BP Pulse Ox
98.1 F 107 20 111/83 96
06/16/24 03:56 06/16/24 03:56 06/16/24 03:56 06/16/24 03:56 06/16/24 03:56
I&O
06/15/24 06/16/24 06/17/24
06:59 06:59 06:59
Intake Total 960 / 960 1040 / 1040
Output Total 800 / 800 400 / 400
Balance 160 / 160 640 / 640
Review of Systems
-
History Source: Patient
All other systems: Not reviewed unless documented
Constitutional: Reports Fatigue; Denies Fever
EENT: Reports No Symptoms Reported
Respiratory: Reports Cough; Denies Trouble Breathing or Wheezing
Cardiac: Reports No Symptoms and Palpitations
Abdomen/GI: Reports No Symptoms; Denies Abdominal Pain, Nausea or Vomiting
Genitourinary: Reports No Symptoms
Musculoskeletal: Reports No Symptoms
Skin: Reports No Symptoms
Neuro: Reports No Symptoms
Physical Exam
-
General: Well Developed, No Apparent Distress, Comfortable and Obese
HEENT: Normocephalic, Atraumatic, Moist Mucous Membranes and Anicteric
Respiratory: Clear to Auscultation and Non Labored Respirations
Cardiac: Regular Rhythm, S1/S2, Murmur, JVD and Other (2+ lower extremity edema); Negative Rub or Gallop
GI: Soft, Nontender, Nondistended and Normal Bowel Sounds
Musculoskeletal: No Clubbing, No Cyanosis and Normal Gait & Station
Skin: Warm, Dry and Normal Turgor; Negative Rash or Jaundice
Neuro: AO x 3 and Nonfocal/Grossly Intact
Psych: Calm
Data Reviewed
-
Labs: Labs Reviewed by me, Discussed with Physician and Discussed with Patient
Old Records: Reviewed
[2024-06-16 07:18] LABS: Glucose - Point of Care 120 mg/dl (70-99)
[2024-06-16 08:45] LABS: INR 2.53; PT 27.3 Sec (11.4-14.6)
[2024-06-16 08:50] LABS: % Basophils 0.2 % (0-2); % Eosinophils 2.3 % (0-6); % Immature Granulocytes 0.3 % (0-0.5); % Lymphocytes 11.7 % (20.5-51.1); % Monocytes 10.3 % (1.7-9.3); % Neutrophils 75.2 % (42.2-75.2); Absolute Eosinophils 0.2 10^3/uL (0-0.7); Absolute Lymphocytes 0.8 10^3/uL (1.2-3.4); Absolute Monocytes 0.7 10^3/uL (0.1-0.6); Absolute Neutrophils 4.8 10^3/uL (1.4-6.5); Hematocrit 35.7 % (37.0-47.0); Hemoglobin 11.8 g/dL (12.0-16.0); Mean Corp Hgb Conc. 33.1 g/dL (33.0-37.0); Mean Corpuscular Hgb 31.5 pg (27.0-31.0); Mean Corpuscular Volume 95.2 fL (81.0-99.0); Nucleated Red Blood Cells % 0 %; Platelet Count 60 10^3/uL (130-400); Red Blood Cell Count 3.75 10^6/uL (4.20-5.40); Red Cell Dist. Width 15.5 % (11.5-14.5); White Blood Cell Count 6.4 10^3/uL (4.8-10.8)
[2024-06-16] MEDS: DESENEX/MITRAZOL/ZEASORB 1 APPLIC TOPICAL ×2 (09:05→21:17)
[2024-06-16] MEDS: LASIX 80 MG IV ×2 (09:06→15:54)
[2024-06-16] MEDS: PROTONIX PO (09:07)
[2024-06-16] MEDS: SENOKOT-S PO (09:07)
[2024-06-16] MEDS: FIBERCON PO (09:07)
[2024-06-16] MEDS: FEOSOL PO (09:07)
[2024-06-16] MEDS: TOPROL XL PO (09:07)
[2024-06-16] MEDS: SODIUM BICARBONATE PO (09:07)
[2024-06-16] MEDS: ZAROXOLYN PO (09:08)
[2024-06-16 09:21] LABS: ALT (SGPT) 37 U/L (0-35); AST (SGOT) 65 U/L (14-36); Albumin 3.9 g/dl (3.5-5.0); Alkaline Phosphatase 150 U/L (38-126); Blood Urea Nitrogen 82 mg/dl (7-17); Calcium 9.1 mg/dl (8.4-10.2); Carbon Dioxide 28 mmol/L (22-30); Chloride 94 mmol/L (98-107); Direct Bilirubin 0.9 mg/dl (0.0-0.4); Estimated Creatinine Clearance 25 ml/min; Glucose 120 mg/dl (70-99); Potassium 4.1 mmol/L (3.5-5.1); Sodium 134 mmol/L (135-145); Total Bilirubin 3.1 mg/dl (0.2-1.3); Total Protein 6.5 g/dl (6.3-8.2); eGFR 28.13
[2024-06-16] MEDS: NOVOLOG FLEXPEN-LOW RESISTANCE SC ×2 (09:28→12:19)
--- NOTE | 2024-06-16 10:31 | W.PN.CD ---
Today's Communication / Plan
-
diuresing well since addition of metolazone, with improving Cr: defer RHC for now
continue lasix 80mg IV bid, with metolazone 5mg daily
Impression / Plan
-
HFpEF with cor pulmonale:
-acute on chronic. high risk with cardiorenal syndrome
-home regimen: torsemide 40mg AM, 20mg PM; aldactone 25mg daily; metolazone 5mg //
-weight at last OV was 71 kg
-diuresing well since addition of metolazone, with improving Cr: defer RHC for now
-continue lasix 80mg IV bid, with metolazone 5mg daily
-close monitoring of labs, tele, weight
Permanent atrial fibrillation. Stable and rate controlled patient on anticoagulation for mechanical mitral valve and A-fib.
.
Mechanical mitral valve. Continue anticoagulation with Coumadin target INR 2.5-3.5. With her issues with recurrent hemorrhoidal bleeding would be cautious not to allow her INR to get too high.
- continue warfarin
History of TAVR
.
History of GI bleed/hemorrhoidal bleeding. Recent hospitalization. 1 episode of bleeding at rehab. Monitor for recurrence.
.
Coronary artery disease/history of coronary bypass grafting. No chest discomfort to suggest angina. Continue with medical therapy.
Abnormal troponin 0.078. No complaints of chest pain. Follow serial troponin
.
Single-chamber ICD
Subjective:
SOB and edema are improving
Physical Exam
Vital Signs/Labs
Vital Signs
Temp Pulse Resp BP Pulse Ox
97.4 F 102 16 134/74 97
06/16/24 07:35 06/16/24 07:35 06/16/24 07:35 06/16/24 07:35 06/16/24 07:35
06/15/24 06/16/24 06/17/24
06:59 06:59 06:59
Actual Weight 82.781 kg 79.651 kg
06/16/24 08:28
06/16/24 08:28
PT 27.3 Sec (11.4-14.6) H 06/16/24 08:28
INR 2.53 06/16/24 08:28
APTT Cancelled 06/14/24 18:00
Magnesium 2.4 mg/dl (1.6-2.3) H 06/11/24 09:29
Free T4 1.23 ng/dl (0.78-2.19) 06/12/24 07:21
06/10/24
15:21
Oin-H-Gkjefpdlcel Pept 4900
Physical Exam
Constitutional: No acute distress
EENT: Moist mucous membranes
Cardiovascular: Rhythm/rate is irregular, Pedal edema present, JVD present and Systolic murmur present
Respiratory: Respiratory effort normal and Lungs clear to auscul.
Neuro/Psych: Alert
Data Reviewed
-
Date of Service: June 16, 2024
EKG: Other (Tele: A fib 70s)
Echo: Report Reviewed by me (EF 50-55%, RV dysfunction with severe/torrential TR)
Labs: Labs Reviewed by me
[2024-06-16 11:42] LABS: Glucose - Point of Care 124 mg/dl (70-99)
[2024-06-16] MEDS: ALDACTONE 25 MG PO (12:55)
[2024-06-16] MEDS: ROBITUSSIN 100 MG PO (13:46)
--- NOTE | 2024-06-16 14:44 | W.PN.NEPH.PH ---
Today's Communication / Plan
-
cont aggressive diuresis
Assessment/Plan
-
Impression:
Acute on chr D CHF
Acute kidney injury
CKD stage IIIb with baseline creatinine 1.7
Metabolic acidosis
Permanent Atrial fibrillation on chronic anticoagulation
Hypertension
Diabetes
Valvular heart disease (hx of mechanical valve replacement)
CAD with history of CABG
ICD
Thrombocytopenia
Elevated LFTs
Plan:
JOJO-suspect cardiorenal, UA with pyuria, follow bladder scan only 99cc
U eosinophils-negative note she is on BID PPI
would continue lasix to 80mg IV BID and add metolazone , non oliguric
lost 6kg wt and cr improving to 1.8 and azotemia improving slowly
cards holding RHC at this time
chr met acidosis improved, hold po bicarb
BP stable on meds, back on Aldactone per cards
off prednisone now
FR to 1400
follow LFTs-improving
All of her edema is not amenable for diuresis, elevated legs, TEDs
labs in am
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
d/w pt and at bedside
-
-
Date of Service: June 16, 2024
CC / HPI / ROS
-
Chief Complaint:
JOJO with CKD
History of Present Illness:
cr down to 1.8, azotemia BUN 82
BP stable
met acidosis resolved at 28 bicarn on po bicarb
Review of Systems:
no cp
no n/v
no SOB at rest but sig edema
Urine output not measured
Weights lower
Labs
-
Labs:
WBC 6.4 10^3/uL (4.8-10.8) 06/16/24 08:28
RBC 3.75 10^6/uL (4.20-5.40) L 06/16/24 08:28
Hgb 11.8 g/dL (12.0-16.0) L 06/16/24 08:28
Hct 35.7 % (37.0-47.0) L 06/16/24 08:28
Plt Count 60 10^3/uL (130-400) L D 06/16/24 08:28
Sodium 134 mmol/L (135-145) L 06/16/24 08:28
Potassium 4.1 mmol/L (3.5-5.1) 06/16/24 08:
Chloride 94 mmol/L (98-107) L 06/16/24 08:28
Carbon Dioxide 28 mmol/L (22-30) 06/16/24 08:28
BUN 82 mg/dl (7-17) H 06/16/24 08:28
Creatinine 1.8 mg/dL (0.6-1.0) H 06/16/24 08:28
eGFR 28.13 06/16/24 08:28
Glucose 120 mg/dl (70-99) H 06/16/24 08:28
Calcium 9.1 mg/dl (8.4-10.2) 06/16/24 08:28
Phosphorus 5.2 mg/dl (2.5-4.5) H 06/11/24 09:29
Pey-Y-Mvuaswmgxwp Pept 4900 pg/ml 06/10/24 15:21
Albumin 3.9 g/dl (3.5-5.0) 06/16/24 08:28
Physical Exam
-
Vital Signs:
Vital Signs
Temp Pulse Resp BP Pulse Ox
97.4 F 119 16 118/69 100
06/16/24 11:45 06/16/24 11:45 06/16/24 11:45 06/16/24 11:45 06/16/24 11:45
Cardiovascular:: Regular rate and rhythm
Respiratory:: Bilateral: CTA
Lung Excursion:: Normal
Abdomen:: Nontender and Soft
Extremity Edema:: +2: Bilateral:
Rockwell Catheter: No
--- NOTE | 2024-06-16 17:00 | CM ---
Reviewed chart, received a call from Julia at [facility] who asked for an update. Provided update regarding patient and relayed that she will need Skilled Rehab per PT. Will continue to provide updates and speak with facility about hopeful bed
availability.
Plan: Case management will continue to follow and assist with discharge planning. SNF when stable.
[2024-06-16] MEDS: KCL 10 MEQ PO (17:32)
[2024-06-16] MEDS: COUMADIN 2 MG PO (17:33)
[2024-06-16] MEDS: ZYLOPRIM 100 MG PO (17:33)
[2024-06-16 17:36] LABS: Glucose - Point of Care 195 mg/dl (70-99)
[2024-06-16] MEDS: NOVOLOG FLEXPEN-LOW RESISTANCE 1 UNITS SC (17:38)
[2024-06-16] MEDS: TOPROL XL 25 MG PO (21:22)
[2024-06-16] MEDS: PROTONIX 40 MG PO (21:22)
[2024-06-16] MEDS: SENOKOT-S 1 TABLET PO (21:22)
[2024-06-16 21:56] LABS: Glucose - Point of Care 253 mg/dl (70-99)
[2024-06-17] VITALS (7 sets, daily range): BP systolic 96–132; BP diastolic 59–109; PULSE 87; O2SAT 99; BMI 29.7
[2024-06-17] MEDS: AMBIEN 5 MG PO (00:20)
[2024-06-17] MEDS: ROBITUSSIN 100 MG PO ×2 (01:37→09:40)
[2024-06-17 07:04] LABS: Hematocrit 35.5 % (37.0-47.0); Hemoglobin 11.4 g/dL (12.0-16.0); Mean Corp Hgb Conc. 32.1 g/dL (33.0-37.0); Mean Corpuscular Hgb 31.2 pg (27.0-31.0); Mean Corpuscular Volume 97.3 fL (81.0-99.0); Mean Platelet Volume 11.6 fL (7.4-10.4); Platelet Count 57 10^3/uL (130-400); Red Blood Cell Count 3.65 10^6/uL (4.20-5.40); Red Cell Dist. Width 15.8 % (11.5-14.5); White Blood Cell Count 5.6 10^3/uL (4.8-10.8)
[2024-06-17 07:06] LABS: INR 2.49
--- NOTE | 2024-06-17 07:18 | W.PN.HOSP.TC ---
Addendum entered and electronically signed by Christo Madrigal MD 06/17/24 14:23:
I saw and evaluated the patient. I reviewed the resident�s note and agree with findings and plan as documented in the resident�s note except for changes in my documentation
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
Echo 06/11/2024-normal LV size. EF 50 to 55%. Enlarged RV with moderately reduced systolic function. RV volume overload with diastolic flattening of the septum.Severely dilated right atrium with RA pressure of 15 mmHg. Normal functioning
mechanical mitral valve and TAVR TR
CVS: S1-S2 normal, systolic murmur at right heart border
Chest: Decreased breath sounds at bases
Abdomen: Soft, NT
Extremities: B/L Pedal edema
# Acute on chronic HFpEF with cor pulmonale
Continue diuresis with Lasix 80 mg IV twice daily. Metolazone added.
Daily weights, intake output charting, CHF education
Patient was on torsemide 20 mg daily as outpatient
Patient is diuresing well therefore right heart cath canceled.
Weight coming down
# Hypokalemia-replaced
# Elevated troponin-nonischemic myocardial injury
# Mildly elevated TSH with normal T4. Needs repeat in 6 weeks
# Coronary artery disease with history of CABG 2008
# JOJO on CKD stage IIIb-Hold sodium bicarb
# Elevated LFTs-chronically elevated LFTs
# Thrombocytopenia- new since 05/27/24.Antiplatelet AB ordered.Heme eval noted.
# Mechanical mitral valve 2008
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
# Permanent atrial fibrillation-continue Coumadin and metoprolol
# Hypertension-continue metoprolol
# Hyperlipidemiamia -restart statin when LFTs are at her baseline
# Diabetes-was on Prandin 0.5 AC as outpatient, restart
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
# History of gout-continue allopurinol
# Chronic anemia-continue iron sulfate
#Tremors upper ext's-present for months to years
# History of GI bleed-continue PPI
# History of subdural hematoma
# Chronic right bundle branch block
# Obesity with a BMI of 30
# Insomnia on Ambien as outpatient-continue
# DVT prophylaxis-continue Coumadin
# DNR
Discussed with patient's , daughter at bedside all questions answered.
Part of this note was created using voice recognition system. Occasional wrong word or��sound alike� substitutions may have inadvertently occurred due to the inherent limitations of voice recognition software. If noted kindly bring it to my
attention for correction.
Original Note:
Today's Communication/Plan
-
Haptoglobin, LDH, reticulocyte count, antiplatelet antibody and SCARLET
Continue warfarin
Continue Lasix
I's and O's, daily weights
Speech eval
PT/OT
Assessment / Plan
Assessment / Plan
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
2008, CKD stage IV, who presented to ED on 06/10/2024 with worsening SOB, fatigue with reported 13 pounds weight gain over 11 days. She also notes worsening edema involving both arms and legs patient's torsemide was recently increased and her
outpatient renal function has worsened per blood work.
Assessment/plan:
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
-Has lost 11 lb since admission. Renal function and volume status improving.
-Home torsemide 20 mg switched to IV Lasix 80 mg BID and metolazone 5 mg PO daily.
-Not on any GDMT for heart failure, reduced RV systolic function seen on recent echo.
-Keep legs elevated.
-Follow BMP, I's and O's and daily weights.
-Follow and replete electrolytes.
-Cardiology following.
-Right heart cath to properly assess volume status if not responding to diuresis.
-Monitor on telemetry.
-PT/OT.
#Intermittent cough
-Most likely viral, CXR clear.
-Cough suppressants increased to 3 times daily.
-Speech eval.
#JOJO on CKD stage IV-from cardiorenal syndrome
-Creatinine down 1.8 close to baseline.
-Continue diuresis.
-Nephrology appreciated.
-Continue home sodium bicarbonate.
-Follow BMP.
#Chronic Anemia
-Anemia of chronic disease vs chronic hemolysis in the setting of mechanical valves.
-Check haptoglobin, LDH, reticulocyte count and SCARLET per hematology.
-Continue iron sulfate and folic acid supplement.
-Hematology following.
#Acute thrombocytopenia
-Worsening since admission.
-Suspect autoimmune process given elevated LFTs
-Antiplatelet antibody immunoglobulins pending.
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
-INR today at goal 2.49 (goal 2.5-3.5).
-Will give another dose of warfarin tonight.
-Trend INR.
#Intermittent hypothermia
-Likely related to heart failure, reduced circulatory function; no signs of sepsis
-TSH 5.10, not enough to treat subclinical hypothyroidism.
-Continue Yocasta hugger with warm blankets as needed.
-Follow temperature curve.
#Permanent A-fib.
-Stable, rate controlled on beta-claire.
-Will continue warfarin and follow INR.
-Consider electrophysiology intervention outpatient.
#Stage 1 decubitus sacral pressure wound (PoA)
-Wound dressing, pressure offload.
#Elevated LFTs
-Suspect due to vascular congestion versus antiplatelet antibodies
-Check antiplatelet antibody panel.
#Nonischemic myocardial injury with RV strain
-Abnormal troponin peaked at 0.088, no evidence of chest pain or ischemia on ECG.
-Ongoing RV strain with RV volume overload.
#Essential hypertension
-No known history of hypertensive systemic disease
-Home medications include metoprolol, no first-line agent
#T2DM
-Recent A1c 6.4%; no known microvascular complications
-Maintain on low SSI
-BG goal 100-200, avoid hypoglycemia
#Severe pulmonary hypertension
-Unclear etiology, no known history of rheumatic heart disease known
-Valves examined well, no signs of insufficiency
#Essential hypertension
-Continue metoprolol.
#Wheezing on exam-denies smoking, COPD or asthma history.
-Continue bronchodilators and incentive spirometry.
-Unclear etiology, most likely from atelectasis.
-CXR clear.
-Continue diuresis
-Requires outpatient pulmonary evaluation.
#Valvular heart disease
#S/P TAVR
#S/P MVR
DVT PPx: Warfarin
Diet: Regular
CODE STATUS: DNR/DNI

Data:
Echo 06/11/2024:
Normal left ventricular size with low normal systolic function. LVEF 50-55%. No regional wall motion abnormalities.
Enlarged right ventricle with moderately reduced systolic function. Evidence of RV volume overload with diastolic flattening of the septum. Severely dilated right atrium with RA pressure of 15 mmHg.
Normal functioning mechanical mitral valve.
Normal functioning TAVR valve.
Torrential tricuspid regurgitation. Unable to estimate PASP.
Compared to prior echocardiogram on 08/15/2023 there is no significant change.
CXR 06/10/2024:
Small patchy right basilar opacity which could represent subsegmental atelectasis and/or pneumonia and tiny right pleural effusion.
Anticipated Discharge: > 48 hours
Anticipated Discharge: > 48 hours
Subjective/Interval History
-
Date of Service: June 17, 2024
I saw and evaluated patient. No acute event reported overnight. Patient reports feeling weak but better today. She continues to complain of worsening nonproductive cough that responds to cough suppressant. She also reports that her head
congestion has resolved. She does not have any fever, or chills. She denies nausea, chest pain, palpitations, abdominal pain. Her bilateral lower extremities looks less swollen however has new erythema, warmth from ankle to mid calf area which
may be irritation or underlying cellulitis. Patient is afebrile and her WBC count is within normal limits.
Objective Data
-
Labs:
Laboratory Results
06/17/24
06:44
WBC 5.6
Hgb 11.4 L
Hct 35.5 L
Plt Count 57 L
PT 27.0 H
INR 2.49
Sodium Pending
Potassium Pending
Chloride Pending
Carbon Dioxide Pending
BUN Pending
Creatinine Pending
Glucose Pending
Calcium Pending
Vital Signs:
Vital Signs
Temp Pulse Resp BP Pulse Ox
97.3 F 98 16 113/60 98
06/17/24 03:20 06/17/24 03:20 06/17/24 03:20 06/17/24 03:20 06/17/24 03:20
I&O
06/16/24 06/17/24 06/18/24
06:59 06:59 06:59
Intake Total 1040 / 1040 890 / 890
Output Total 400 / 400
Balance 640 / 640 890 / 890
Review of Systems
-
History Source: Patient
All other systems: Not reviewed unless documented
Constitutional: Reports Fatigue; Denies Fever
EENT: Reports No Symptoms Reported
Respiratory: Reports Cough; Denies Trouble Breathing or Wheezing
Cardiac: Reports No Symptoms and Palpitations
Abdomen/GI: Reports No Symptoms; Denies Abdominal Pain, Nausea or Vomiting
Genitourinary: Reports No Symptoms
Musculoskeletal: Reports No Symptoms
Skin: Reports No Symptoms
Neuro: Reports No Symptoms
Physical Exam
-
General: Well Developed, No Apparent Distress, Comfortable and Obese
HEENT: Normocephalic, Atraumatic, Moist Mucous Membranes and Anicteric
Respiratory: Clear to Auscultation and Non Labored Respirations; Negative Wheezes
Cardiac: S1/S2, Irregular Rhythm, Murmur, JVD and Other (2+ lower extremity edema); Negative Rub or Gallop
GI: Soft, Nontender, Nondistended and Normal Bowel Sounds
Musculoskeletal: No Clubbing, No Cyanosis and Normal Gait & Station
Skin: Warm, Dry and Normal Turgor; Negative Rash or Jaundice
Neuro: Awake, Alert, AO x 3 and Nonfocal/Grossly Intact
Psych: Calm
Data Reviewed
-
Diagnostic Radiology: Image personally visualized and interpreted, Report Reviewed by me and Discussed with Physician
Labs: Labs Reviewed by me, Discussed with Physician and Discussed with Patient
Old Records: Reviewed
--- NOTE | 2024-06-17 08:14 | W.PN.CD ---
Today's Communication / Plan
-
awaiting AM labs
If remal function remains stable , continue diuresis and close monitoring fo renal function. Creatinine getting close to baseline
follow up chest x ray
anticipate change to oral diuretic in 24 - 48 hours
recentecho stable compared to previous
Impression / Plan
-
HFpEF with cor pulmonale:
-acute on chronic. high risk with cardiorenal syndrome
-home regimen: torsemide 40mg AM, 20mg PM; aldactone 25mg daily; metolazone 5mg //
-weight at last OV was 71 kg
-diuresing well since addition of metolazone, with improving Cr: defer RHC for now
-continue lasix 80mg IV bid, with metolazone 5mg daily
-close monitoring of labs, tele, weight. WEight reduction from about 86kg down to 78.5kg
Permanent atrial fibrillation. Stable and rate controlled patient on anticoagulation for mechanical mitral valve and A-fib.
.
Mechanical mitral valve. Continue anticoagulation with Coumadin target INR 2.5-3.5. With her issues with recurrent hemorrhoidal bleeding would be cautious not to allow her INR to get too high.
- continue warfarin
History of TAVR
.
History of GI bleed/hemorrhoidal bleeding. Recent hospitalization. 1 episode of bleeding at rehab. Monitor for recurrence.
.
Coronary artery disease/history of coronary bypass grafting. No chest discomfort to suggest angina. Continue with medical therapy.
Abnormal troponin 0.078. No complaints of chest pain. Follow serial troponin
.
Single-chamber ICD
Subjective:
no sob at rest. still with some cough. no cp. edema decreased
Physical Exam
Vital Signs/Labs
Vital Signs
Temp Pulse Resp BP Pulse Ox
97.4 F 108 18 124/83 94
06/17/24 08:04 06/17/24 08:04 06/17/24 08:04 06/17/24 08:04 06/17/24 08:04
06/16/24 06/17/24 06/18/24
06:59 06:59 06:59
Actual Weight 79.651 kg 78.5 kg
06/17/24 06:44
PT 27.0 Sec (11.4-14.6) H 06/17/24 06:44
INR 2.49 06/17/24 06:44
APTT Cancelled 06/14/24 18:00
Magnesium 2.4 mg/dl (1.6-2.3) H 06/11/24 09:29
Free T4 1.23 ng/dl (0.78-2.19) 06/12/24 07:21
06/10/24
15:21
Ffk-[id number]-Tpnfhsgrvuy Pept 4900
Physical Exam
Constitutional: Other (sleeping but arousable but appeared she did not want to be bothered today)
EENT: Anicteric
Cardiovascular: Rhythm & rate is regular, Systolic murmur present and Other ([facility] S1)
Respiratory: Wheeze Absent, Rhonchi Absent and Other (cough with deep inspiration)
GI: Soft
Neuro/Psych: Alert
Other: Other (bilat leg edema. significnatly decreased since admit)
Data Reviewed
-
Date of Service: June 17, 2024
Medical Decision Making: Reviewed Test Results
Medical Tests (PFT, Pathology etc): Report Reviewed by me
Labs: Labs Reviewed by me
[2024-06-17 08:33] LABS: Blood Urea Nitrogen 78 mg/dl (7-17); Calcium 8.9 mg/dl (8.4-10.2); Carbon Dioxide 29 mmol/L (22-30); Chloride 91 mmol/L (98-107); Estimated Creatinine Clearance 25 ml/min; Glucose 140 mg/dl (70-99); Potassium 3.5 mmol/L (3.5-5.1); Sodium 133 mmol/L (135-145); eGFR 28.13
[2024-06-17 08:34] LABS: Glucose - Point of Care 135 mg/dl (70-99)
[2024-06-17] MEDS: ZAROXOLYN 5 MG PO (08:45)
[2024-06-17] MEDS: FEOSOL 325 MG PO (08:45)
[2024-06-17] MEDS: TOPROL XL 25 MG PO (08:45)
[2024-06-17] MEDS: ALDACTONE 25 MG PO (08:45)
[2024-06-17] MEDS: DESENEX/MITRAZOL/ZEASORB 1 APPLIC TOPICAL ×2 (08:45→21:47)
[2024-06-17] MEDS: LASIX 80 MG IV ×2 (08:45→16:04)
[2024-06-17] MEDS: FIBERCON 625 MG PO (08:45)
[2024-06-17] MEDS: SENOKOT-S 1 TABLET PO ×2 (08:45→21:47)
[2024-06-17] MEDS: PROTONIX 40 MG PO ×2 (08:45→21:47)
[2024-06-17] MEDS: NOVOLOG FLEXPEN-LOW RESISTANCE SC (08:46)
--- NOTE | 2024-06-17 09:18 | CON.ONC ---
Impression
Impression
decompensated CHF, chronic HFpEF
cardiorenal syndrome
mechanical mitral valve, TAVR, torrential tricuspid regurgitation
suspected hemolysis
thrombocytopenia
chronic afib
chronic warfarin
Plan
Plan
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
Will check haptoglobin, retic count, LDH and SCARLET
Will start folic acid supplement
Borderline thrombocytopenia is chronic, seems to acutely worsen while hospitalized. May be related to hemolysis, medications, chronic disease. Of note, thrombocytopenia and elevated MCV in the setting of heart failure are both poor prognostic
markers.
Patient History
History of Present Illness
asked to see patient re: thrombocytopenia
She is an 78 yo F w/ recurrent/frequent admissions for decompensated CHF exacerbations, with extensive PMH as below, who presented with worsening shortness of breath and weight gain, and increase of 13 pounds over the 11 days prior to admission.
CBC today shows white blood cell count of 5.6, hemoglobin 11.4 and platelet count 57. Platelet count has trended down since admission, was 135 on June 10, 2024. Her MPV is elevated, and has been rising. Review of CBCs during prior admissions
shows mild thrombocytopenia as well. Haptoglobin was checked in April 2024, undetectable. She has mild LFT elevations, direct bilirubin is 3.1 and total bilirubin 0.9.
She complains of ongoing shortness of breath and cough. Since admission, her leg swelling has improved slightly with diuresis. She has chronic orthopnea. She bruises easily, but denies any bleeding at this time.
Past-Medical/Surgical History
Past medical history includes chronic HFpEF, and permanent atrial fibrillation, mechanical mitral valve replacement, TAVR, CABG, torrential tricuspid regurgitation, permanent atrial fibrillation, history of ventricular fibrillation status post ICD,
recent acute kidney injury and rectal bleeding, cardiorenal syndrome, chronic warfarin anticoagulation, type 2 diabetes, hypertension, cholecystectomy, cataract surgery
Social history: Non-smoker, , lives with family
Family history: Noncontributory
Patient Medication
�Medication �Instructions �Recorded �Confirmed �Last Taken �Type
atorvastatin 40 mg tablet 40 mg PO QPM High cholesterol 09/22/19 06/10/24 12/11/22 History
levalbuterol HCl 0.63 mg/3 mL 0.63 mg inhalation R Q8HPRN PRN 11/22/22 06/10/24 Unknown History
solution for nebulization sob/wheezing
docusate sodium 100 mg capsule 100 mg PO DAILY Constipation 05/01/24 06/10/24 Unknown History
(Colace)
ferrous sulfate 325 mg (65 mg 325 mg PO DAILY Supplement 05/01/24 06/10/24 Unknown History
iron) tablet
omega 7-nws-etl-fish oil 1,000 mg 1 cap PO DAILY Supplement 05/01/24 06/10/24 Unknown History
(120 mg-180 mg) capsule (Fish Oil)
nitroglycerin 0.4 mg sublingual 0.4 mg sublingual [id number] PRN 05/12/24 06/10/24 Unknown Rx
tablet chest pain 30 days #20 tabs
pantoprazole 40 mg tablet,delayed 40 mg PO BID Gastrointestinal 05/12/24 06/10/24 Unknown Rx
release issue 30 days #60 tabs
potassium chloride 10 mEq 10 meq PO QPM Supplement 30 days 05/12/24 06/10/24 Unknown Rx
capsule,extended release #30 caps
repaglinide 0.5 mg tablet 0.5 mg PO AC Diabetes 30 days #30 05/12/24 06/10/24 12/12/22 Rx
tabs
sennosides 8.6 mg capsule (senna) 8.6 mg PO DAILYPRN PRN 05/12/24 06/10/24 Unknown Rx
constipation 30 days #30 caps
therapeutic multivitamin 1 tab PO DAILY Supplement 30 days 05/12/24 06/10/24 Unknown Rx
#30 tabs
triamcinolone acetonide 0.1 % 1 applic topical DAILYPRN PRN 05/23/24 06/10/24 Unknown History
topical cream shoulder and back itching
sodium bicarbonate 650 mg tablet 1,300 mg (2 x 650 mg) PO DAILY #60 06/01/24 06/10/24 Unknown Rx
tabs
prednisone 10 mg tablet See Rx Instructions .Route 06/02/24 06/10/24 Unknown Rx
.COMPLEX #30 tabs
acetaminophen 325 mg tablet 650 mg PO Q6HPRN PRN mild-moderate 06/10/24 06/10/24 Unknown History
pain/temp>100.4
allopurinol 100 mg tablet 100 mg PO QPM Gout 06/10/24 06/10/24 Unknown History
bisacodyl 10 mg rectal suppository 10 mg MD DAILYPRN PRN if mom not 06/10/24 06/10/24 Unknown History
(Dulcolax (bisacodyl)) effective within 8 hrs
calcium polycarbophil 625 mg 625 mg PO DAILY 06/10/24 06/10/24 Unknown History
tablet (Fiber-Lax)
hydrocortisone 1 % topical cream 1 applic MD Q8HPRN PRN hemorrhoids 06/10/24 06/10/24 Unknown History
(Preparation H Hydrocortisone)
magnesium hydroxide 400 mg/5 mL 30 ml PO [id number] PRN if no bm in 06/10/24 06/10/24 Unknown History
oral suspension (Milk of Magnesia) 72hrs
metoprolol succinate 25 mg capsule 25 mg PO BID Blood Pressure 06/10/24 06/10/24 Unknown History
sprinkle, ext. release 24 hr
sodium chloride 0.9 % 0 ml IV USEASDIRECTD Skin Issues 06/10/24 06/10/24 Unknown History
sodium phosphates 19 gram-7 118 ml MD DAILYPRN PRN if no 06/10/24 06/10/24 Unknown History
gram/118 mL enema (Fleet Enema) results from dulcolax within 8hrs
torsemide 20 mg tablet 20 mg PO DAILY Fluid 06/10/24 06/10/24 Unknown History
Retention/Swelling
zolpidem 5 mg tablet 5 mg PO HSPRN PRN insomnia 06/10/24 06/10/24 Unknown History
polyethylene glycol 3350 17 gram 17 g PO DAILY Constipation 06/11/24 06/10/24 Unknown History
oral powder packet (Miralax)
Active Medications
Generic Name Dose Route Start Last Admin
Trade Name Freq PRN Reason Stop Dose Admin
Acetaminophen 650 mg 06/10/24 20:12
Acetaminophen 325 Mg Tablet PO 07/08/24 20:11
Q6HPRN PRN
mild-moderate pain/temp>100.4
Allopurinol 100 mg 06/11/24 18:00 06/16/24 17:33
Allopurinol 100 Mg Tablet PO 07/09/24 17:59 100 mg
QPM KYLEE Administration
Calcium Polycarbophil 625 mg 06/11/24 08:00 06/17/24 08:45
Calcium Polycarbophil 625 Mg Tablet PO 07/09/24 07:59 625 mg
DAILY KYLEE Administration
Dextrose 12.5 grams 06/10/24 20:12
Dextrose 50% (0.5 Grams/Ml) 50 Ml Syringe IV 07/08/24 20:11
[id number] PRN
hypoglycemia
Protocol
Ferrous Sulfate 325 mg 06/11/24 08:00 06/17/24 08:45
Ferrous Sulfate 325 Mg Tablet PO 07/09/24 07:59 325 mg
DAILY KYLEE Administration
Furosemide 80 mg 06/12/24 16:00 06/17/24 08:45
Furosemide 100 Mg (10 Mg/Ml) 10 Ml Vial IV 07/10/24 15:59 80 mg
BID@0800,1600 KYLEE Administration
Glucagon 1 mg 06/10/24 20:12
Glucagon 1 Mg Vial IM 07/08/24 20:11
PRN PRN
hypoglycemia
Protocol
Guaifenesin 100 mg 06/16/24 09:55 06/17/24 01:37
Guaifenesin Oral Solution (200 Mg/10 Ml) Cup PO 07/14/24 09:54 100 mg
Q4HPRN PRN Administration
Cough
Insulin Aspart 0 units 06/17/24 07:30 06/17/24 08:46
Insulin Aspart Low Resistance 300 Units/3 Ml Pen.Injctr SC 07/15/24 07:29 Not Given
AC KYLEE
Protocol
Levalbuterol HCl 0.63 mg 06/10/24 20:12 06/13/24 10:33
Levalbuterol 0.63 Mg/3 Ml Ampul INH 0.63 mg
R Q8HPRN PRN Administration
sob/wheezing
Protocol
Metolazone 5 mg 06/14/24 16:00 06/17/24 08:45
Metolazone 5 Mg Tablet PO 07/12/24 15:59 5 mg
DAILY KYLEE Administration
Metoprolol Succinate 25 mg 06/10/24 21:00 06/17/24 08:45
Metoprolol 25 Mg Extended Release Tablet PO 07/08/24 20:59 25 mg
BID KYLEE Administration
Miconazole Nitrate 0 applic 06/11/24 20:00 06/17/24 08:45
Miconazole Powder Bottle TOPICAL 07/09/24 19:59 1 applic
BID KYLEE Administration
Nitroglycerin 0.4 mg 06/10/24 20:12
Nitroglycerin 0.4 Mg Sl Tablet SL 07/08/24 20:11
[id number] PRN
chest pain
Pantoprazole Sodium 40 mg 06/10/24 20:12 06/17/24 08:45
Pantoprazole 40 Mg Delayed Release Tablet PO 07/08/24 20:11 40 mg
BID KYLEE Administration
Potassium Chloride 10 meq 06/11/24 18:00 06/16/24 17:32
Potassium Chloride 10 Meq Extended Release Tablet PO 07/09/24 17:59 10 meq
QPM KYLEE Administration
Prochlorperazine Edisylate 5 mg 06/12/24 23:20 06/12/24 23:46
Prochlorperazine 10 Mg/2 Ml Vial IV 07/10/24 23:19 5 mg
Q6HPRN PRN Administration
n/v
Senna/Docusate Sodium 1 tablet 06/10/24 20:12 06/17/24 08:45
Docusate W/Senna (Radha-Colace) Tablet PO 07/08/24 20:11 1 tablet
BID KYLEE Administration
Sodium Bicarbonate 1,300 mg 06/11/24 08:00 06/16/24 09:07
Sodium Bicarbonate 650 Mg Tablet PO 07/09/24 07:59 Not Given
DAILY KYLEE
Sodium Chloride 0 flush 06/10/24 21:00
Sodium Chloride 0.9% (Flush) Syringe IV 07/08/24 20:59
PER PROTOCOL KYLEE
Spironolactone 25 mg 06/16/24 11:00 06/17/24 08:45
Spironolactone 25 Mg Tablet PO 07/14/24 10:59 25 mg
DAILY KYLEE Administration
Zolpidem Tartrate 5 mg 06/10/24 20:12 06/17/24 00:20
Zolpidem Tartrate 5 Mg Tablet PO 07/08/24 20:11 5 mg
HSPRN PRN Administration
insomnia
Physical Exam
-
General: No Apparent Distress and Appears Chronically Ill
HEENT: Moist Mucous Membranes
Cardiology: Irregular Rate/Rhythm and Murmur
Pulmonary: Clear
GI: Soft
Extremities: Edema
Neurology: Non Focal
Skin: Warm; Negative No Ecchymosis
Psych: Intact Judgement/Insight
Labs
Lab Results
WBC 5.6 10^3/uL (4.8-10.8) 06/17/24 06:44
RBC 3.65 10^6/uL (4.20-5.40) L 06/17/24 06:44
Hgb 11.4 g/dL (12.0-16.0) L 06/17/24 06:44
Hct 35.5 % (37.0-47.0) L 06/17/24 06:44
MCV 97.3 fL (81.0-99.0) 06/17/24 06:44
MCH 31.2 pg (27.0-31.0) H 06/17/24 06:44
MCHC 32.1 g/dL (33.0-37.0) L 06/17/24 06:44
RDW 15.8 % (11.5-14.5) H 06/17/24 06:44
Plt Count 57 10^3/uL (130-400) L 06/17/24 06:44
MPV 11.6 fL (7.4-10.4) H 06/17/24 06:44
Abs Immat Gran (auto) 0.0 10^3/uL (0-0.05) 06/16/24 08:28
Absolute Neuts (auto) 4.8 10^3/uL (1.4-6.5) 06/16/24 08:28
Absolute Lymphs (auto) 0.8 10^3/uL (1.2-3.4) L 06/16/24 08:28
Absolute Monos (auto) 0.7 10^3/uL (0.1-0.6) H 06/16/24 08:28
Absolute Eos (auto) 0.2 10^3/uL (0-0.7) 06/16/24 08:28
Absolute Basos (auto) 0.0 10^3/uL (0-0.2) 06/16/24 08:28
Immature Gran % 0.3 % (0-0.5) 06/16/24 08:28
Neutrophils % 75.2 % (42.2-75.2) 06/16/24 08:28
Lymphocytes % 11.7 % (20.5-51.1) L 06/16/24 08:28
Monocytes % 10.3 % (1.7-9.3) H 06/16/24 08:28
Eosinophils % 2.3 % (0-6) 06/16/24 08:28
Basophils % 0.2 % (0-2) 06/16/24 08:28
Creatinine 1.8 mg/dL (0.6-1.0) H 06/17/24 06:44
Vital Signs
Vital Signs
Temp Pulse Resp BP Pulse Ox
97.4 F 108 18 124/83 94
06/17/24 08:04 06/17/24 08:04 06/17/24 08:04 06/17/24 08:04 06/17/24 08:04
[2024-06-17 11:55] LABS: Glucose - Point of Care 229 mg/dl (70-99)
[2024-06-17] MEDS: NOVOLOG FLEXPEN-LOW RESISTANCE 2 UNITS SC (14:02)
--- NOTE | 2024-06-17 15:30 | PTOTSP ---
Speech Language Pathology
Pt seen for clinical bedside swallow evaluation. Pt/spouse denied any difficulty swallowing at baseline or currently or any recurrent PNA. P.O. trials of puree, regular solids, and thin liquids provided. Adequate mastication, bolus formation, and
A-P transit noted. No overt signs of aspiration.
Recommend:
(1) Regular solids/thin liquids
(2) General aspiration precautions
(3) Meds as tolerated
(4) SUCCESSFACTORS CONSULTANT to sign off. Please reconsult as indicated
--- NOTE | 2024-06-17 15:50 | W.PN.NEPH.PH ---
Today's Communication / Plan
-
follow labs
cont diuretics
ambulate
Assessment/Plan
-
Impression:
Acute on chr D CHF
Acute kidney injury
CKD stage IIIb with baseline creatinine 1.7
Metabolic acidosis
Permanent Atrial fibrillation on chronic anticoagulation
Hypertension
Diabetes
Valvular heart disease (hx of mechanical valve replacement)
CAD with history of CABG
ICD
Thrombocytopenia
Elevated LFTs
Plan:
JOJO-suspect cardiorenal, UA with pyuria, follow bladder scan only 99cc
U eosinophils-negative note she is on BID PPI
would continue lasix to 80mg IV BID and add metolazone , non oliguric
ct stable at 1.8 and azotemia improving slowly
cards holding RHC at this time
chr met acidosis improved, held po bicarb
BP soft, monitor on BB and Aldactone per cards
off prednisone now
FR to 1400
follow LFTs-improving
Thrombocytopenia , felt to be valvular-heme follows
All of her edema is not amenable for diuresis, elevated legs, TEDs
labs in am
d/w pt and at bedside
-
-
Date of Service: June 17, 2024
CC / HPI / ROS
-
Chief Complaint:
JOJO with CKD
History of Present Illness:
cr down to 1.8, azotemia BUN 78
BP soft now
met acidosis resolved at 29
no fever
plt low 57
Review of Systems:
no cp
no n/v
no SOB at rest but edema
Urine output not measured
Weights lower
Labs
-
Labs:
WBC 5.6 10^3/uL (4.8-10.8) 06/17/24 06:44
RBC 3.65 10^6/uL (4.20-5.40) L 06/17/24 06:44
Hgb 11.4 g/dL (12.0-16.0) L 06/17/24 06:44
Hct 35.5 % (37.0-47.0) L 06/17/24 06:44
Plt Count 57 10^3/uL (130-400) L 06/17/24 06:44
Sodium 133 mmol/L (135-145) L 06/17/24 06:44
Potassium 3.5 mmol/L (3.5-5.1) 06/17/24 06:44
Chloride 91 mmol/L (98-107) L 06/17/24 06:44
Carbon Dioxide 29 mmol/L (22-30) 06/17/24 06:44
BUN 78 mg/dl (7-17) H 06/17/24 06:44
Creatinine 1.8 mg/dL (0.6-1.0) H 06/17/24 06:44
eGFR 28.13 06/17/24 06:44
Glucose 140 mg/dl (70-99) H 06/17/24 06:44
Calcium 8.9 mg/dl (8.4-10.2) 06/17/24 06:44
Phosphorus 5.2 mg/dl (2.5-4.5) H 06/11/24 09:29
Mte-U-Woocmfzmejt Pept 4900 pg/ml 06/10/24 15:21
Albumin 3.9 g/dl (3.5-5.0) 06/16/24 08:28
Physical Exam
-
Vital Signs:
Vital Signs
Temp Pulse Resp BP Pulse Ox
97.5 F 92 18 98/59 99
06/17/24 15:20 06/17/24 15:20 06/17/24 15:20 06/17/24 15:20 06/17/24 15:20
Cardiovascular:: Regular rate and rhythm
Respiratory:: Bilateral: CTA
Lung Excursion:: Normal
Abdomen:: Nontender and Soft
Extremity Edema:: +2: Bilateral:
Rockwell Catheter: No
[2024-06-17] MEDS: ROBITUSSIN 200 MG PO ×2 (16:04→21:47)
[2024-06-17] MEDS: PRANDIN 0.5 MG PO (16:10)
[2024-06-17 17:17] LABS: Glucose - Point of Care 186 mg/dl (70-99)
[2024-06-17] MEDS: NOVOLOG FLEXPEN-LOW RESISTANCE 1 UNITS SC (17:23)
[2024-06-17] MEDS: KCL 10 MEQ PO (17:24)
[2024-06-17] MEDS: COUMADIN 3 MG PO (17:24)
[2024-06-17] MEDS: ZYLOPRIM 100 MG PO (17:26)
[2024-06-17 21:39] LABS: Glucose - Point of Care 147 mg/dl (70-99)
[2024-06-17] MEDS: TOPROL XL PO (21:55)
[2024-06-18] MEDS: AMBIEN 5 MG PO ×2 (00:20→23:10)
[2024-06-18 03:00] VITALS: BP 118/71
[2024-06-18 06:00] VITALS: BMI 29.1
--- NOTE | 2024-06-18 07:09 | W.PN.ONC2 ---
Today's Communication / Plan
-
Await full hematologic hemolysis workup which was drawn this morning and is pending.
Consider Doppler ultrasound left upper extremity although I am seeing her for the first time and we will defer to the primary team as she was apparently profoundly edematous prior to diuresis.
Impression
Impression
decompensated CHF, chronic HFpEF
cardiorenal syndrome
mechanical mitral valve, TAVR, torrential tricuspid regurgitation
suspected hemolysis
thrombocytopenia
chronic afib
chronic warfarin
Plan
Plan
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
Will check haptoglobin, retic count, LDH and SCARLET
Will start folic acid supplement
Borderline thrombocytopenia is chronic, seems to acutely worsen while hospitalized. May be related to hemolysis, medications, chronic disease. Of note, thrombocytopenia and elevated MCV in the setting of heart failure are both poor prognostic
markers.
Subjective/Objective
Chief Complaint
ACS Heme Onc
Subjective
Feels weak overall.
Vital Signs:
Vital Signs
Temp Pulse Resp BP Pulse Ox
98.3 F 111 18 118/71 97
06/18/24 03:00 06/18/24 03:00 06/18/24 03:00 06/18/24 03:00 06/18/24 03:00
Lab Results:
Laboratory Data
WBC 5.6 10^3/uL (4.8-10.8) 06/17/24 06:44
Hgb 11.4 g/dL (12.0-16.0) L 06/17/24 06:44
Plt Count 57 10^3/uL (130-400) L 06/17/24 06:44
PT 27.0 Sec (11.4-14.6) H 06/17/24 06:44
INR 2.49 06/17/24 06:44
APTT Cancelled 06/14/24 18:00
eGFR 28.13 06/17/24 06:44
Physical Exam
HEENT: No Jaundice
Cardiology: S1, S2 and Murmur
Pulmonary: No Rhonchi
GI: Soft
Extremities: Edema (Apparently significantly improved. Left upper extremity erythema and edema.)
--- NOTE | 2024-06-18 07:18 | W.PN.HOSP.TC ---
Addendum entered and electronically signed by Christo Madrigal MD 06/18/24 17:41:
I saw and evaluated the patient. I reviewed the resident�s note and agree with findings and plan as documented in the resident�s note except for changes in my documentation
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
Echo 06/11/2024-normal LV size. EF 50 to 55%. Enlarged RV with moderately reduced systolic function. RV volume overload with diastolic flattening of the septum.Severely dilated right atrium with RA pressure of 15 mmHg. Normal functioning
mechanical mitral valve and TAVR TR
CVS: S1-S2 normal, systolic murmur at right heart border
Chest: Decreased breath sounds at bases, rales left
Abdomen: Soft, NT
Extremities: B/L Pedal edema
# Acute on chronic HFpEF with cor pulmonale
Continue diuresis with Lasix 80 mg IV twice daily. Metolazone added.
Daily weights, intake output charting, CHF education
Patient was on torsemide 20 mg daily as outpatient
Patient is diuresing well therefore right heart cath canceled.
Weight coming down
# Moist cough productive- added Doxy. Repeat CXR .
# Hypokalemia-replaced
# Elevated troponin-nonischemic myocardial injury
# Mildly elevated TSH with normal T4. Needs repeat in 6 weeks
# Coronary artery disease with history of CABG 2008
# JOJO on CKD stage IIIb-Hold sodium bicarb
# Elevated LFTs-chronically elevated LFTs- follow. op GI eval.
# Thrombocytopenia- new since 05/27/24.Antiplatelet AB ordered.Heme eval noted.
# Mechanical mitral valve 2008
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
# Permanent atrial fibrillation-continue Coumadin and metoprolol
# Hypertension-continue metoprolol
# Hyperlipidemiamia -restart statin when LFTs are at her baseline
# Diabetes-was on Prandin 0.5 AC as outpatient, restarted
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
# History of gout-continue allopurinol
# Chronic anemia-continue iron sulfate
#Tremors upper ext's-present for months to years
# History of GI bleed-continue PPI
# History of subdural hematoma
# Chronic right bundle branch block
# Obesity with a BMI of 30
# Insomnia on Ambien as outpatient-continue
# DVT prophylaxis-continue Coumadin
# DNR
D/W Renal
D/W and updated
Part of this note was created using voice recognition system. Occasional wrong word or��sound alike� substitutions may have inadvertently occurred due to the inherent limitations of voice recognition software. If noted kindly bring it to my
attention for correction.
Original Note:
Today's Communication/Plan
-
Continued daily Lasix, metolazone and Aldactone.
Increase KCl to 20 mg twice daily
Follow INR
Start doxy and increase Robitussin
Monitor I's and O's, daily weights daily and labs
Encourage CPAP at HS
Continue bronchodilators
Assessment / Plan
Assessment / Plan
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
2008, CKD stage IV, who presented to ED on 06/10/2024 with worsening SOB, fatigue with reported 13 pounds weight gain over 11 days. She also notes worsening edema involving both arms and legs patient's torsemide was recently increased and her
outpatient renal function has worsened per blood work.
Assessment/plan:
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
-Weight down, volume status improved.
-Continue IV Lasix 80 mg BID, metolazone 5 mg PO daily, and spironolactone 25 mg PO daily.
-Increased KCl to 20 mEq BID.
-Limited GDMT due to reduced RV systolic function and borderline GFR.
-Keep legs elevated.
-Follow BMP, I's and O's and daily weights.
-Follow and replete electrolytes.
-Cardiology appreciated
-Monitor on telemetry.
-PT/OT.
#Intermittent cough
-Improved with Robitussin, increased to QID.
-Most likely viral, CXR clear.
-Speech eval with no signs of aspiration.
-Started Doxy 100 BID for anti-inflamatory property, and ppx for superimposed bacterial infection
-Speech pathologist appreciated.
-Continue bronchodilators.
#JOJO on CKD stage IV-from cardiorenal syndrome
-Creatinine 1.9 (baseline 1.6).
-Continue diuresis.
-Nephrology appreciated.
-Follow BMP.
#Chronic Anemia-From chronic hemolysis in the setting of mechanical valves.
-Haptoglobin pending, LDH 427 representing hemolysis picture.
-Patient not iron deficient; Iron, TIBC, ferritin and reticulocyte count all WNL.
-Continue iron sulfate and folic acid supplement.
-Hematology following.
#Acute thrombocytopenia
-Worsening since admission.
-Suspect autoimmune process given elevated LFTs
-Antiplatelet antibody immunoglobulins pending.
#Hyponatremia
-Dilutional.
-Continue diuresis and monitor BMP.
#Hypokalemia
-Due to diuresis.
-Will most likely improve with addition of spironolactone for GDMT.
-Monitor and replete.
#Chronic metabolic acidosis
-Improved.
-Hold sodium bicarbonate.
-Monitor BMP.
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
-INR remains subtherapeutic at 2.21 (goal 2.5-3.5).
-Will give another dose of warfarin tonight, if continued to be subtherapeutic we may have to bridge again with heparin.
-Trend INR.
#Mild respiratory acidosis
-Multifactorial; suspect sleep apnea, has been on sodium bicarbonate AUTOPSY ASSISTANT, CKD.
-Hold sodium bicarbonate.
-Encourage CPAP at HS.
-Monitor BMP.
#Intermittent hypothermia
-Likely related to heart failure, reduced circulatory function; no signs of sepsis
-TSH 5.10, not enough to treat subclinical hypothyroidism.
-Continue Yocasta hugger with warm blankets as needed.
-Follow temperature curve.
#Permanent A-fib.
-Stable, rate controlled on beta-claire.
-Will continue warfarin and follow INR.
-Consider electrophysiology intervention outpatient.
#Stage 1 decubitus sacral pressure wound (PoA)
-Wound dressing, pressure offload.
#Elevated LFTs
-Suspect due to vascular congestion versus antiplatelet antibodies
-Check antiplatelet antibody panel.
#Nonischemic myocardial injury with RV strain
-Abnormal troponin peaked at 0.088, no evidence of chest pain or ischemia on ECG.
-Ongoing RV strain with RV volume overload.
#Essential hypertension
-No known history of hypertensive systemic disease
-Home medications include metoprolol, no first-line agent
#T2DM
-Recent A1c 6.4%; no known microvascular complications
-Maintain on low SSI
-BG goal 100-200, avoid hypoglycemia
#Severe pulmonary hypertension
-Unclear etiology, no known history of rheumatic heart disease known
-Valves examined well, no signs of insufficiency
#Essential hypertension
-Continue metoprolol.
#Valvular heart disease
#S/P TAVR
#S/P MVR
DVT PPx: Warfarin
Diet: Regular
CODE STATUS: DNR/DNI

Data:
Echo 06/11/2024:
Normal left ventricular size with low normal systolic function. LVEF 50-55%. No regional wall motion abnormalities.
Enlarged right ventricle with moderately reduced systolic function. Evidence of RV volume overload with diastolic flattening of the septum. Severely dilated right atrium with RA pressure of 15 mmHg.
Normal functioning mechanical mitral valve.
Normal functioning TAVR valve.
Torrential tricuspid regurgitation. Unable to estimate PASP.
Compared to prior echocardiogram on 08/15/2023 there is no significant change.
CXR 06/10/2024:
Small patchy right basilar opacity which could represent subsegmental atelectasis and/or pneumonia and tiny right pleural effusion.
Anticipated Discharge: > 48 hours
Anticipated Discharge: > 48 hours
Subjective/Interval History
-
Date of Service: June 18, 2024
I have seen and examined the patient. Patient was sitting comfortably on the chair in no acute distress. She reports that she feels better today, has good energy, and happy that the terrazzo mechanic told her she is progressing in the right direction.
She denies chest pain, shortness of breath, palpitations, nausea, vomiting, abdominal pain, fever and chills. Subjectively, she looks better and her edema is slightly resolving. Her creatinine is 1.9 today, sodium 132, potassium 3.4. She remains
afebrile and WBC is WNL. Her BP 122/82, pulse 120, respiratory 18 and saturating at 96% on room air. Her weight is down 169lb which is close to her previous baseline of 161 lb back in April 2024. Discussed with cardiology. Will continue
diuresis with Lasix 80 mg twice daily, with metolazone 5 mg daily and additional spironolactone 25 mg daily with a standing dose of KCl 20 mg milliequivalents twice daily.
Objective Data
-
Labs:
Laboratory Results
06/18/24
06:59
WBC Pending
Hgb Pending
Hct Pending
Plt Count Pending
PT Pending
INR Pending
Sodium Pending
Potassium Pending
Chloride Pending
Carbon Dioxide Pending
BUN Pending
Creatinine Pending
Glucose Pending
Calcium Pending
Vital Signs:
Vital Signs
Temp Pulse Resp BP Pulse Ox
98.3 F 111 18 118/71 97
06/18/24 03:00 06/18/24 03:00 06/18/24 03:00 06/18/24 03:00 06/18/24 03:00
I&O
06/17/24 06/18/24 06/19/24
06:59 06:59 06:59
Intake Total 890 / 890 600 / 600 120 / 120
Balance 890 / 890 600 / 600 120 / 120
Review of Systems
-
History Source: Patient
All other systems: Not reviewed unless documented
Constitutional: Reports Fatigue; Denies Fever
EENT: Reports No Symptoms Reported
Respiratory: Reports Cough; Denies Trouble Breathing or Wheezing
Cardiac: Reports No Symptoms and Palpitations
Abdomen/GI: Reports No Symptoms; Denies Abdominal Pain, Nausea or Vomiting
Genitourinary: Reports No Symptoms
Musculoskeletal: Reports No Symptoms
Skin: Reports No Symptoms
Neuro: Reports No Symptoms
Physical Exam
-
General: Well Developed, No Apparent Distress, Comfortable and Obese
HEENT: Normocephalic, Atraumatic, Moist Mucous Membranes and Anicteric
Respiratory: Clear to Auscultation and Non Labored Respirations; Negative Wheezes
Cardiac: S1/S2, Irregular Rhythm, Murmur, JVD and Other (2+ lower extremity edema); Negative Rub or Gallop
GI: Soft, Nontender, Nondistended and Normal Bowel Sounds
Musculoskeletal: No Clubbing, No Cyanosis and Normal Gait & Station
Skin: Warm, Dry and Normal Turgor; Negative Rash or Jaundice
Neuro: Awake, Alert, AO x 3 and Nonfocal/Grossly Intact
Psych: Calm
Data Reviewed
-
Diagnostic Radiology: Image personally visualized and interpreted, Report Reviewed by me and Discussed with Physician
Labs: Labs Reviewed by me, Discussed with Physician and Discussed with Patient
Old Records: Reviewed
[2024-06-18 07:19] LABS: Hemoglobin 11.5 g/dL (12.0-16.0); Mean Corp Hgb Conc. 32.9 g/dL (33.0-37.0); Mean Corpuscular Hgb 30.9 pg (27.0-31.0); Mean Corpuscular Volume 94.1 fL (81.0-99.0); Platelet Count 56 10^3/uL (130-400); Red Blood Cell Count 3.72 10^6/uL (4.20-5.40); Red Cell Dist. Width 15.6 % (11.5-14.5); Reticulocyte Count 2.2 % (0.4-2.8); White Blood Cell Count 5.3 10^3/uL (4.8-10.8)
[2024-06-18 07:36] LABS: INR 2.21
[2024-06-18 07:38] VITALS: BP 117/80
[2024-06-18 07:48] LABS: Glucose - Point of Care 124 mg/dl (70-99)
[2024-06-18] MEDS: XOPENEX 0.63 MG INHALANT SOLUTION INH (07:49)
[2024-06-18 08:06] LABS: Blood Urea Nitrogen 75 mg/dl (7-17); Calcium 8.8 mg/dl (8.4-10.2); Carbon Dioxide 32 mmol/L (22-30); Chloride 89 mmol/L (98-107); Estimated Creatinine Clearance 24 ml/min; Glucose 113 mg/dl (70-99); Iron 69 ug/dl (37-170); LDH 427 U/L (120-246); Potassium 3.4 mmol/L (3.5-5.1); Sodium 132 mmol/L (135-145); eGFR 26.36
[2024-06-18 08:16] LABS: Percent Saturation 18 % (20-50); Total Iron Binding Capacity 369 ug/dl (265-497)
--- NOTE | 2024-06-18 08:35 | W.PN.CD ---
Today's Communication / Plan
-
continue IV diuresis
attempting to get down to 71kg
Impression / Plan
-
HFpEF with cor pulmonale:
-acute on chronic. high risk with cardiorenal syndrome
-GFR borderline for initiation of SGLT2i
-home regimen: torsemide 40mg AM, 20mg PM; aldactone 25mg daily; metolazone 5mg //
-weight at last OV was 71 kg
-diuresing well since addition of metolazone, with improving Cr: defer RHC for now
-continue lasix 80mg IV bid, with metolazone 5mg daily; aldactone 25mg daily
-close monitoring of labs, tele, weight.
-increase KCL to 20 mEq bid
Permanent atrial fibrillation. Stable and rate controlled patient on anticoagulation for mechanical mitral valve and A-fib.
.
Mechanical mitral valve. Continue anticoagulation with Coumadin target INR 2.5-3.5. With her issues with recurrent hemorrhoidal bleeding would be cautious not to allow her INR to get too high.
- continue warfarin
History of TAVR
.
History of GI bleed/hemorrhoidal bleeding. Recent hospitalization. 1 episode of bleeding at rehab. Monitor for recurrence.
.
Coronary artery disease/history of coronary bypass grafting. No chest discomfort to suggest angina. Continue with medical therapy.
Abnormal troponin 0.078. No complaints of chest pain. Follow serial troponin
.
Single-chamber ICD
Subjective:
no sob at rest. still with some cough. no cp. edema decreased
Physical Exam
Vital Signs/Labs
Vital Signs
Temp Pulse Resp BP Pulse Ox
97.6 F 92 18 117/80 96
06/18/24 07:38 06/18/24 07:53 06/18/24 07:53 06/18/24 07:38 06/18/24 07:53
06/17/24 06/18/2406/19/24
06:59 06:59 06:59
Actual Weight 78.5 kg 76.793 kg
06/18/24 06:59
06/18/24 06:59
PT 25.0 Sec (11.4-14.6) H 06/18/24 06:59
INR 2.21 06/18/24 06:59
APTT Cancelled 06/14/24 18:00
Magnesium 2.4 mg/dl (1.6-2.3) H 06/11/24 09:29
Free T4 1.23 ng/dl (0.78-2.19) 06/12/24 07:21
06/10/24
15:21
Hdm-W-Cirxigosycp Pept 4900
Physical Exam
Constitutional: No acute distress
EENT: Moist mucous membranes
Cardiovascular: Rhythm/rate is irregular, Pedal edema present, JVD present and Systolic murmur present
Respiratory: Respiratory effort normal
Neuro/Psych: AO x 3
Data Reviewed
-
Date of Service: June 18, 2024
EKG: Other (Tele: A )
Labs: Labs Reviewed by me
[2024-06-18] MEDS: TOPROL XL 25 MG PO ×2 (08:36→20:22)
[2024-06-18] MEDS: FOLVITE 1 MG PO (08:37)
[2024-06-18] MEDS: FEOSOL 325 MG PO (08:37)
[2024-06-18] MEDS: PROTONIX 40 MG PO ×2 (08:37→20:22)
[2024-06-18] MEDS: PRANDIN 0.5 MG PO ×3 (08:37→17:01)
[2024-06-18] MEDS: ROBITUSSIN 200 MG PO ×4 (08:37→23:10)
[2024-06-18] MEDS: SENOKOT-S 1 TABLET PO ×2 (08:37→20:22)
[2024-06-18] MEDS: KCL 20 MEQ PO ×2 (08:38→20:22)
[2024-06-18] MEDS: ZAROXOLYN 5 MG PO (08:38)
[2024-06-18] MEDS: ALDACTONE 25 MG PO (08:39)
[2024-06-18] MEDS: DESENEX/MITRAZOL/ZEASORB 1 APPLIC TOPICAL ×2 (08:39→20:26)
[2024-06-18] MEDS: FIBERCON 625 MG PO (08:39)
[2024-06-18] MEDS: LASIX 80 MG IV ×2 (08:40→17:00)
[2024-06-18] MEDS: NOVOLOG FLEXPEN-LOW RESISTANCE SC (08:46)
[2024-06-18 09:13] LABS: Folate > 20.0 ng/ml (2.76-20)
[2024-06-18 11:09] VITALS: BP 110/62
[2024-06-18 11:18] LABS: Glucose - Point of Care 248 mg/dl (70-99)
--- NOTE | 2024-06-18 12:55 | W.PN.NEPH.PH ---
Today's Communication / Plan
-
Continue diuresis as GFR tolerates
Replete potassium
Follow daily BMP
Assessment/Plan
-
Impression:
Acute on chr D CHF
Acute kidney injury
CKD stage IIIb with baseline creatinine 1.7
Metabolic acidosis
Permanent Atrial fibrillation on chronic anticoagulation
Hypertension
Diabetes
Valvular heart disease (hx of mechanical valve replacement)
CAD with history of CABG
ICD
Thrombocytopenia
Elevated LFTs
Plan:
JOJO-suspect cardiorenal, UA with pyuria, follow bladder scan only 99cc
U eosinophils-negative note she is on BID PPI
would continue lasix to 80mg IV BID and add metolazone , non oliguric,weights down
replete K
ct stable at 1.9 and azotemia improving slowly
cards holding RHC at this time
chr met acidosis improved, held po bicarb
BP soft, monitor on BB and Aldactone per cards
off prednisone now
FR to 1400
follow LFTs-improving
Thrombocytopenia , felt to be valvular-heme follows
All of her edema is not amenable for diuresis, elevated legs, TEDs
labs in am
d/w pt and at bedside
-
-
Date of Service: June 18, 2024
CC / HPI / ROS
-
Chief Complaint:
JOJO with CKD
History of Present Illness:
cr down to 1.8, azotemia BUN 75
BP soft but stable today
met acidosis resolved at 32
no fever
plt low 57
Review of Systems:
no cp
no n/v
no SOB at rest but edema
Urine output not measured
Weights lower
Labs
-
Labs:
WBC 5.3 10^3/uL (4.8-10.8) 06/18/24 06:59
RBC 3.72 10^6/uL (4.20-5.40) L 06/18/24 06:59
Hgb 11.5 g/dL (12.0-16.0) L 06/18/24 06:59
Hct 35.0 % (37.0-47.0) L 06/18/24 06:59
Plt Count 56 10^3/uL (130-400) L 06/18/24 06:59
Sodium 132 mmol/L (135-145) L 06/18/24 06:59
Potassium 3.4 mmol/L (3.5-5.1) L 06/18/24 06:59
Chloride 89 mmol/L (98-107) L 06/18/24 06:59
Carbon Dioxide 32 mmol/L (22-30) H 06/18/24 06:59
BUN 75 mg/dl (7-17) H 06/18/24 06:59
Creatinine 1.9 mg/dL (0.6-1.0) H 06/18/24 06:59
eGFR 26.36 06/18/24 06:59
Glucose 113 mg/dl (70-99) H 06/18/24 06:59
Calcium 8.8 mg/dl (8.4-10.2) 06/18/24 06:59
Phosphorus 5.2 mg/dl (2.5-4.5) H 06/11/24 09:29
Fns-G-Taamisxwhad Pept 4900 pg/ml 06/10/24 15:21
Albumin 3.9 g/dl (3.5-5.0) 06/16/24 08:28
Physical Exam
-
Vital Signs:
Vital Signs
Temp Pulse Resp BP Pulse Ox
97.6 F 100 16 110/62 98
06/18/24 07:38 06/18/24 11:09 06/18/24 11:09 06/18/24 11:09 06/18/24 11:09
Cardiovascular:: Regular rate and rhythm
Respiratory:: Bilateral: CTA
Lung Excursion:: Normal
Abdomen:: Nontender and Soft
Extremity Edema:: +2: Bilateral:
Rockwell Catheter: No
[2024-06-18] MEDS: NOVOLOG FLEXPEN-LOW RESISTANCE 2 UNITS SC (12:58)
[2024-06-18] MEDS: VIBRAMYCIN 100 MG PO ×2 (13:00→20:22)
[2024-06-18 14:45] VITALS: BP 114/72
[2024-06-18 17:00] LABS: Glucose - Point of Care 168 mg/dl (70-99)
[2024-06-18] MEDS: ZYLOPRIM 100 MG PO (17:01)
[2024-06-18] MEDS: COUMADIN 3 MG PO (17:01)
[2024-06-18] MEDS: NOVOLOG FLEXPEN-LOW RESISTANCE 1 UNITS SC (17:02)
[2024-06-18 20:01] VITALS: BP 124/69
[2024-06-18 21:41] LABS: Glucose - Point of Care 134 mg/dl (70-99)
[2024-06-18 21:41] LABS: Platelet Antibody, Direct IgG Negative (Negative); Platelet Antibody, Direct IgM Strong Pos (Negative)
[2024-06-18 23:51] VITALS: BP 119/60
[2024-06-19 02:55] VITALS: BP 101/54
[2024-06-19 06:00] VITALS: BMI 28.4
[2024-06-19 06:19] LABS: Hematocrit 34.9 % (37.0-47.0); Hemoglobin 11.2 g/dL (12.0-16.0); Mean Corp Hgb Conc. 32.1 g/dL (33.0-37.0); Mean Corpuscular Hgb 30.9 pg (27.0-31.0); Mean Corpuscular Volume 96.1 fL (81.0-99.0); Mean Platelet Volume 13.6 fL (7.4-10.4); Platelet Count 56 10^3/uL (130-400); Red Blood Cell Count 3.63 10^6/uL (4.20-5.40); Red Cell Dist. Width 15.7 % (11.5-14.5)
[2024-06-19 06:26] LABS: INR 2.41; PT 26.7 Sec (11.4-14.6)
[2024-06-19 06:37] LABS: ALT (SGPT) 38 U/L (0-35); AST (SGOT) 80 U/L (14-36); Albumin 3.7 g/dl (3.5-5.0); Alkaline Phosphatase 178 U/L (38-126); Blood Urea Nitrogen 72 mg/dl (7-17); Calcium 8.8 mg/dl (8.4-10.2); Carbon Dioxide 32 mmol/L (22-30); Chloride 88 mmol/L (98-107); Estimated Creatinine Clearance 23 ml/min; Glucose 111 mg/dl (70-99); Potassium 3.7 mmol/L (3.5-5.1); Sodium 130 mmol/L (135-145); Total Bilirubin 3.1 mg/dl (0.2-1.3); Total Protein 6.2 g/dl (6.3-8.2); eGFR 26.36
--- NOTE | 2024-06-19 06:57 | W.PN.HOSP.TC ---
Addendum entered and electronically signed by Christo Madrigal MD 06/20/24 11:00:
Correction. No metabolic acidosis. She has contraction alkalosis
Addendum entered and electronically signed by Christo Madrigal MD 06/19/24 15:43:
I saw and evaluated the patient. I reviewed the resident�s note and agree with findings and plan as documented in the resident�s note except for changes in my documentation
Patient was seen earlier. Late documentation
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
Echo 06/11/2024-normal LV size. EF 50 to 55%. Enlarged RV with moderately reduced systolic function. RV volume overload with diastolic flattening of the septum.Severely dilated right atrium with RA pressure of 15 mmHg. Normal functioning
mechanical mitral valve and TAVR TR
CVS: S1-S2 normal, systolic murmur at right heart border
Chest: Decreased breath sounds at bases, rales left
Abdomen: Soft, NT
Extremities: B/L Pedal edema-better
# Acute on chronic HFpEF with cor pulmonale
Continue diuresis with Lasix 80 mg IV twice daily. Metolazone added.
Daily weights, intake output charting, CHF education
Patient was on torsemide 20 mg daily as outpatient
Patient is diuresing well therefore right heart cath canceled.
Weight coming down
Continue Alexis bandages for the lower extremity
# Metabolic acidosis likely secondary to contraction alkalosis
# Moist cough productive-treat as acute bronchitis-bacterial. added Doxy. Chest x-ray reviewed by me
# Hyponatremia-secondary to hypervolemia-cannot rule out a component of SIADH. Check osmolality studies also
# Autoimmune hemolytic anemia. Hemoglobin stable. Treatment per hematology oncology
# Hypokalemia-replaced
# Elevated troponin-nonischemic myocardial injury
# Mildly elevated TSH with normal T4. Needs repeat in 6 weeks
# Coronary artery disease with history of CABG 2008
# JOJO on CKD stage IIIb-Hold sodium bicarb. Creatinine stable
# Elevated LFTs-chronically elevated LFTs- follow. op GI eval. elevated LFTs could be secondary to autoimmune hemolytic anemia also.
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 Will defer to hematology oncology whether she needs steroids/Nplate
# Mechanical mitral valve 2008
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
# Permanent atrial fibrillation-continue Coumadin and metoprolol
# Hypertension-continue metoprolol
# Hyperlipidemiamia -restart statin when LFTs are at her baseline
# Diabetes-was on Prandin 0.5 AC as outpatient, restarted
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
# History of gout-continue allopurinol
# Chronic anemia-continue iron sulfate for iron deficiency
# Tremors upper ext's-present for months to years
# History of GI bleed-continue PPI
# History of subdural hematoma
# Chronic right bundle branch block
# Obesity with a BMI of 30
# Insomnia on Ambien as outpatient-continue
# DVT prophylaxis-continue Coumadin
# DNR
Discussed with and updated yesterday.
Nephrology updated today.
Original Note:
Today's Communication/Plan
-
Check flu and COVID serologies
continue diuresis
follow bmp
monitor and replete electrolytes
Check VBG
Assessment / Plan
Assessment / Plan
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
2008, CKD stage IV, who presented to ED on 06/10/2024 with worsening SOB, fatigue with reported 13 pounds weight gain over 11 days. She also notes worsening edema involving both arms and legs patient's torsemide was recently increased and her
outpatient renal function has worsened per blood work.
Assessment/plan:
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
-Weight down, volume status improving.
-Repeat CXR reports minimal b/l pleural effusion improved from previous.
-Continue IV Lasix 80 mg BID, metolazone 5 mg PO daily, and spironolactone 25 mg PO daily per nephrology.
-Continue KCl to 20 mEq BID.
-Limited GDMT due to reduced RV systolic function and borderline GFR.
-Keep legs elevated.
-Follow BMP, I's and O's and daily weights.
-Follow and replete electrolytes.
-Cardiology appreciated
-Monitor on telemetry.
-PT/OT.
#Acute alkalosis-Suspect respiratory alkalosis with CO2 retention.
-Check VBG.
-Continue Abx.
#Hyponatremia
-Na 130 today, Suspect hypervolemic.
-Continue diuresis and monitor BMP.
#Intermittent cough
-Improved with Robitussin, continue QID.
-Most likely viral, CXR clear.
-Check flu and COVID serologies.
-Speech eval reports no signs of aspiration.
-Continue Doxy 100 BID Day #2/5 for anti-inflammatory property, and ppx for superimposed bacterial infection.
-Speech pathologist appreciated.
-Continue bronchodilators.
#JOJO on CKD stage IV-from cardiorenal syndrome
-Creatinine 1.9 (baseline 1.6).
-Continue diuresis.
-Nephrology appreciated.
-Follow BMP.
# ITP
-Strong positive Direct platelet IgM Ab representing ITP.
-Consider corticosteroids.
-Hematology following.
#Autoimmune hemolytic anemia- with high LDH
-Haptoglobin pending.
-Suspect superimposed Fe deficiency anemia.
-Venofer per Hematology.
-Appreciate hematology.
#Hypokalemia
-Due to diuresis.
-Will most likely improve with addition of spironolactone for GDMT.
-Monitor and replete.
#Chronic metabolic acidosis
-Improved.
-Hold sodium bicarbonate.
-Monitor BMP.
#Mechanical MVR-presented with subtherapeutic INR 1.74 [employer]
-INR remains subtherapeutic at 2.41 (goal 2.5-3.5).
-Will continue warfarin cautiously given her bleeding risks.
-Trend INR.
#Intermittent hypothermia
-Resolved.
-Likely related to heart failure, reduced circulatory function; no signs of sepsis
-TSH 5.10, not enough to treat subclinical hypothyroidism.
-Continue Yocasta hugger with warm blankets as needed.
-Follow temperature curve.
#Permanent A-fib.
-Stable, rate controlled on beta-claire.
-Will continue warfarin and follow INR.
-Consider electrophysiology intervention outpatient.
#Stage 1 decubitus sacral pressure wound (PoA)
-Wound dressing, pressure offload.
#Elevated LFTs
-Suspect due to vascular congestion versus antiplatelet antibodies
-Check antiplatelet antibody panel.
#Nonischemic myocardial injury with RV strain
-Abnormal troponin peaked at 0.088, no evidence of chest pain or ischemia on ECG.
-Ongoing RV strain with RV volume overload.
#Essential hypertension
-No known history of hypertensive systemic disease
-Home medications include metoprolol, no first-line agent
#T2DM
-Recent A1c 6.4%; no known microvascular complications
-Maintain on low SSI
-BG goal 100-200, avoid hypoglycemia
#Severe pulmonary hypertension
-Unclear etiology, no known history of rheumatic heart disease known
-Valves examined well, no signs of insufficiency
#Essential hypertension
-Continue metoprolol.
#Valvular heart disease
#S/P TAVR
#S/P MVR
DVT PPx: Warfarin
Diet: Regular
CODE STATUS: DNR/DNI

Data:
Echo 06/11/2024:
Normal left ventricular size with low normal systolic function. LVEF 50-55%. No regional wall motion abnormalities.
Enlarged right ventricle with moderately reduced systolic function. Evidence of RV volume overload with diastolic flattening of the septum. Severely dilated right atrium with RA pressure of 15 mmHg.
Normal functioning mechanical mitral valve.
Normal functioning TAVR valve.
Torrential tricuspid regurgitation. Unable to estimate PASP.
Compared to prior echocardiogram on 08/15/2023 there is no significant change.
CXR 06/10/2024:
Small patchy right basilar opacity which could represent subsegmental atelectasis and/or pneumonia and tiny right pleural effusion.
Anticipated Discharge: > 48 hours
Anticipated Discharge: > 48 hours
Subjective/Interval History
-
Date of Service: June 19, 2024
I have seen and evaluated pt. She was sitting comfortably on a chair enjoying breakfast, in no acute distress. She reports no chest pain, SOB, abd pian, palpitations, fever or chills. Her volume status is improving and she has not required O2
supplementation since admission.
Objective Data
-
Labs:
Laboratory Results
06/19/24
05:41
WBC 5.0
Hgb 11.2 L
Hct 34.9 L
Plt Count 56 L
PT 26.7 H
INR 2.41
Sodium 130 L
Potassium 3.7
Chloride 88 L
Carbon Dioxide 32 H
BUN 72 H
Creatinine 1.9 H
Glucose 111 H
Calcium 8.8
Total Bilirubin 3.1 H
AST 80 H
ALT 38 H
Alkaline Phosphatase 178 H
Vital Signs:
Vital Signs
Temp Pulse Resp BP Pulse Ox
97.8 F 86 24 101/54 95
06/19/24 02:55 06/19/24 02:55 06/19/24 02:55 06/19/24 02:55 06/19/24 02:55
I&O
06/17/24 06/18/24 06/19/24
06:59 06:59 06:59
Intake Total 890 / 890 600 / 600 720 / 720
Output Total 500 / 500
Balance 890 / 890 600 / 600 220 / 220
Review of Systems
-
History Source: Patient
All other systems: Not reviewed unless documented
Constitutional: Reports Fatigue; Denies Fever
EENT: Reports No Symptoms Reported
Respiratory: Reports Cough; Denies Trouble Breathing or Wheezing
Cardiac: Reports No Symptoms and Palpitations
Abdomen/GI: Reports No Symptoms; Denies Abdominal Pain, Nausea or Vomiting
Genitourinary: Reports No Symptoms
Musculoskeletal: Reports No Symptoms
Skin: Reports No Symptoms
Neuro: Reports No Symptoms
Physical Exam
-
General: Well Developed, No Apparent Distress, Comfortable and Obese
HEENT: Normocephalic, Atraumatic, Moist Mucous Membranes and Anicteric
Respiratory: Clear to Auscultation and Non Labored Respirations; Negative Wheezes
Cardiac: S1/S2, Irregular Rhythm, Murmur, JVD and Other (2+ lower extremity edema); Negative Rub or Gallop
GI: Soft, Nontender, Nondistended and Normal Bowel Sounds
Musculoskeletal: No Clubbing, No Cyanosis and Normal Gait & Station
Skin: Warm, Dry and Normal Turgor; Negative Rash or Jaundice
Neuro: Awake, Alert, AO x 3 and Nonfocal/Grossly Intact
Psych: Calm
Data Reviewed
-
Diagnostic Radiology: Image personally visualized and interpreted, Report Reviewed by me and Discussed with Physician
Labs: Labs Reviewed by me, Discussed with Physician and Discussed with Patient
Old Records: Reviewed
[2024-06-19 08:04] VITALS: BP 142/76
[2024-06-19 08:11] LABS: Glucose - Point of Care 106 mg/dl (70-99)
[2024-06-19] MEDS: NOVOLOG FLEXPEN-LOW RESISTANCE SC ×2 (09:05→18:05)
[2024-06-19] MEDS: PRANDIN 0.5 MG PO ×3 (09:08→18:06)
--- NOTE | 2024-06-19 09:14 | W.PN.CD ---
Today's Communication / Plan
-
continue IV lasix with metolazone
Impression / Plan
-
HFpEF with cor pulmonale:
-acute on chronic. high risk with cardiorenal syndrome
-GFR borderline for initiation of SGLT2i
-home regimen: torsemide 40mg AM, 20mg PM; aldactone 25mg daily; metolazone 5mg //
-weight at last OV was 71 kg
-diuresing well since addition of metolazone, with improving Cr: defer RHC for now
-continue lasix 80mg IV bid, with metolazone 5mg daily; aldactone 25mg daily
-close monitoring of labs, tele, weight.
-continue KCL 20 mEq bid
Permanent atrial fibrillation. Stable and rate controlled patient on anticoagulation for mechanical mitral valve and A-fib.
.
Mechanical mitral valve. Continue anticoagulation with Coumadin target INR 2.5-3.5. With her issues with recurrent hemorrhoidal bleeding would be cautious not to allow her INR to get too high.
- continue warfarin
History of TAVR
.
History of GI bleed/hemorrhoidal bleeding. Recent hospitalization. 1 episode of bleeding at rehab. Monitor for recurrence.
.
Coronary artery disease/history of coronary bypass grafting. No chest discomfort to suggest angina. Continue with medical therapy.
Abnormal troponin 0.078. No complaints of chest pain. Follow serial troponin
.
Single-chamber ICD
Subjective:
no sob at rest. still with some cough. no cp. edema decreased
Physical Exam
Vital Signs/Labs
Vital Signs
Temp Pulse Resp BP Pulse Ox
97.9 F 90 20 142/76 98
06/19/24 08:04 06/19/24 08:04 06/19/24 08:04 06/19/24 08:04 06/19/24 08:04
06/18/24 06/19/24 06/20/24
06:59 06:59 06:59
Actual Weight 76.793 kg 74.979 kg
06/19/24 05:41
06/19/24 05:41
PT 26.7 Sec (11.4-14.6) H 06/19/24 05:41
INR 2.41 06/19/24 05:41
APTT Cancelled 06/14/24 18:00
Magnesium 2.4 mg/dl (1.6-2.3) H 06/11/24 09:29
Free T4 1.23 ng/dl (0.78-2.19) 06/12/24 07:21
06/10/24
15:21
Srg-M-Mktdaezupgs Pept 4900
Physical Exam
Constitutional: No acute distress and Comfortable
EENT: Moist mucous membranes
Cardiovascular: Rhythm/rate is irregular, Pedal edema present, JVD present and Systolic murmur present
Respiratory: Respiratory effort normal
Neuro/Psych: AO x 3
Data Reviewed
-
Date of Service: June 19, 2024
EKG: Other (A fib 90s)
Labs: Labs Reviewed by me
--- NOTE | 2024-06-19 09:30 | W.PN.ONC ---
Today's Communication / Plan
-
Appears to be evidence of an acute autoimmune hemolytic anemia with elevated LDH and IgM SCARLET positive, haptoglobin will be pending for days
Possible superimposed iron deficiency anemia with saturation 18%
Strong direct platelet antibody also appreciated
No rapid hemolysis occurring
Could consider reinstating corticosteroids
Repeating iron with Venofer 200 mg may expedite reticulocytosis currently 2.2
Impression
Impression
Autoimmune hemolytic anemia
ITP
Iron deficiency on warfarindecompensated CHF, chronic HFpEF
Cardiorenal syndrome
Mechanical mitral valve, TAVR, torrential tricuspid regurgitation
Atrial fibrillation
Plan
Plan
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
Will check haptoglobin, retic count, LDH and SCARLET
Will start folic acid supplement
Borderline thrombocytopenia is chronic, seems to acutely worsen while hospitalized. May be related to hemolysis, medications, chronic disease. Of note, thrombocytopenia and elevated MCV in the setting of heart failure are both poor prognostic
markers.
Subjective/Objective
Subjective/Objective
Vital Signs:
Vital Signs
Temp Pulse Resp BP Pulse Ox
97.9 F 90 20 142/76 98
06/19/24 08:04 06/19/24 08:04 06/19/24 08:04 06/19/24 08:04 06/19/24 08:04
Lab Results:
Laboratory Data
WBC 5.0 10^3/uL (4.8-10.8) 06/19/24 05:41
Hgb 11.2 g/dL (12.0-16.0) L 06/19/24 05:41
Plt Count 56 10^3/uL (130-400) L 06/19/24 05:41
PT 26.7 Sec (11.4-14.6) H 06/19/24 05:41
INR 2.41 06/19/24 05:41
APTT Cancelled 06/14/24 18:00
eGFR 26.36 06/19/24 05:41
[2024-06-19] MEDS: ROBITUSSIN 200 MG PO ×4 (10:16→22:53)
[2024-06-19] MEDS: VIBRAMYCIN 100 MG PO ×2 (10:17→20:09)
[2024-06-19] MEDS: ZAROXOLYN 5 MG PO (10:22)
[2024-06-19] MEDS: SENOKOT-S 1 TABLET PO ×2 (10:23→20:10)
[2024-06-19] MEDS: PROTONIX 40 MG PO ×2 (10:23→20:09)
[2024-06-19] MEDS: KCL 20 MEQ PO ×2 (10:24→20:10)
[2024-06-19] MEDS: FIBERCON 625 MG PO (10:24)
[2024-06-19] MEDS: FOLVITE 1 MG PO (10:25)
[2024-06-19] MEDS: FEOSOL 325 MG PO (10:25)
[2024-06-19] MEDS: TOPROL XL 25 MG PO ×2 (10:26→20:12)
[2024-06-19] MEDS: LASIX 80 MG IV ×2 (10:27→15:01)
[2024-06-19] MEDS: ALDACTONE 25 MG PO (10:27)
[2024-06-19] MEDS: DESENEX/MITRAZOL/ZEASORB 1 APPLIC TOPICAL ×2 (10:29→20:52)
[2024-06-19 10:46] LABS: Venous Blood Gas B.E. 7.6 mmol/L (-4 to +4); Venous Blood Gas O2 Sat % 99.5 %; Venous Blood Gas pCO2 38 mmHg (35-48); Venous Blood Gas pH 7.52 (7.32-7.43); Venous Blood Gas pO2 106 mmHg (30-50)
[2024-06-19 11:39] LABS: Glucose - Point of Care 219 mg/dl (70-99)
[2024-06-19] MEDS: NOVOLOG FLEXPEN-LOW RESISTANCE 2 UNITS SC (12:35)
[2024-06-19] MEDS: FERRLECIT 110 MG IV (13:28)
[2024-06-19 13:34] LABS: COVID-19 Antigen Negative (Negative)
--- NOTE | 2024-06-19 13:54 | W.PN.NEPH.PH ---
Today's Communication / Plan
-
maintain diuresis
follow labs
Assessment/Plan
-
Impression:
Acute on chr D CHF
Acute kidney injury
CKD stage IIIb with baseline creatinine 1.7
Metabolic acidosis
Permanent Atrial fibrillation on chronic anticoagulation
Hypertension
Diabetes
Valvular heart disease (hx of mechanical valve replacement)
CAD with history of CABG
ICD
Thrombocytopenia
Elevated LFTs
Plan:
JOJO-suspect cardiorenal, UA with pyuria, follow bladder scan only 99cc
U eosinophils-negative note she is on BID PPI
would continue lasix to 80mg IV BID and metolazone , non oliguric,weights down
replete K
ct stable at 1.9 and azotemia improving slowly
cards holding RHC at this time
chr met acidosis improved, held po bicarb
BP soft, monitor on BB and Aldactone per cards
off prednisone now
FR to 1400 sodium at 130
follow LFTs-improving
Thrombocytopenia , felt to be valvular-heme follows
All of her edema is not amenable for diuresis, elevated legs, TEDs
labs in am, if alkalosis exacerbates we will provide Diamox for contraction induced metabolic alkalosis
d/w pt and at bedside
-
-
Date of Service: June 19, 2024
CC / HPI / ROS
-
Chief Complaint:
JOJO with CKD
History of Present Illness:
cr down to 1.9, azotemia BUN 75
BP soft but stable today
met acidosis resolved at 32
no fever
plt low 57
Review of Systems:
no cp
no n/v
no SOB at rest but edema
Urine output not measured
Weights lower
Labs
-
Labs:
WBC 5.0 10^3/uL (4.8-10.8) 06/19/24 05:41
RBC 3.63 10^6/uL (4.20-5.40) L 06/19/24 05:41
Hgb 11.2 g/dL (12.0-16.0) L 06/19/24 05:41
Hct 34.9 % (37.0-47.0) L 06/19/24 05:41
Plt Count 56 10^3/uL (130-400) L 06/19/24 05:41
Sodium 130 mmol/L (135-145) L 06/19/24 05:41
Potassium 3.7 mmol/L (3.5-5.1) 06/19/24 05:41
Chloride 88 mmol/L (98-107) L 06/19/24 05:41
Carbon Dioxide 32 mmol/L (22-30) H 06/19/24 05:41
BUN 72 mg/dl (7-17) H 06/19/24 05:41
Creatinine 1.9 mg/dL (0.6-1.0) H 06/19/24 05:41
eGFR 26.36 06/19/24 05:41
Glucose 111 mg/dl (70-99) H 06/19/24 05:41
Calcium 8.8 mg/dl (8.4-10.2) 06/19/24 05:41
Phosphorus 5.2 mg/dl (2.5-4.5) H 06/11/24 09:29
Ttu-K-Qewugkyeaeh Pept 4900 pg/ml 06/10/24 15:21
Albumin 3.7 g/dl (3.5-5.0) 06/19/24 05:41
Physical Exam
-
Vital Signs:
Vital Signs
Temp Pulse Resp BP Pulse Ox
97.9 F 90 20 142/76 98
06/19/24 08:04 06/19/24 08:04 06/19/24 08:04 06/19/24 08:04 12/05/24 08:04
Cardiovascular:: Regular rate and rhythm
Respiratory:: Bilateral: CTA
Lung Excursion:: Normal
Abdomen:: Nontender and Soft
Extremity Edema:: +2: Bilateral:
Rockwell Catheter: No
[2024-06-19 15:00] VITALS: BP 111/67
[2024-06-19 15:28] VITALS: BP 110/64; BP 111/70; PULSE 77; PULSE 90; O2SAT 100; O2SAT 99
--- NOTE | 2024-06-19 16:25 | CM ---
Spoke with patient and her spouse who was at bedside to discuss discharge planning. Patient's spouse stated that patient had a bad experience at [facility] and would not like to return. She has also been to [facility] and did not want to
return there. Patient and her spouse were willing to have a referral sent to [facility]. Patient expressed that she wants to go home. Explanation provided that the indication on behalf of PT is for SNF, therefore, a bed should be secured at one. If
patient able to return home, SNF will be updated. Patient and her spouse stated that they will discuss options and let CM know of additional facilities.
Plan: Case management will continue to follow and assist with discharge planning. SNF vrs Home with VN.
[2024-06-19 16:41] LABS: Glucose - Point of Care 111 mg/dl (70-99)
[2024-06-19] MEDS: ZYLOPRIM 100 MG PO (18:06)
[2024-06-19] MEDS: COUMADIN 3 MG PO (18:06)
[2024-06-19 20:16] VITALS: BMI 28.4
[2024-06-19 21:45] LABS: Glucose - Point of Care 231 mg/dl (70-99)
[2024-06-19] MEDS: AMBIEN 5 MG PO (22:53)
[2024-06-19 23:37] VITALS: BP 128/72
[2024-06-20 05:35] VITALS: BMI 28.4
[2024-06-20 07:39] VITALS: BP 103/68
[2024-06-20 07:50] LABS: Glucose - Point of Care 98 mg/dl (70-99)
[2024-06-20 07:51] LABS: Blood Urea Nitrogen 74 mg/dl (7-17); Calcium 8.7 mg/dl (8.4-10.2); Carbon Dioxide 30 mmol/L (22-30); Chloride 89 mmol/L (98-107); Estimated Creatinine Clearance 22 ml/min; Glucose 93 mg/dl (70-99); Potassium 3.4 mmol/L (3.5-5.1); Sodium 131 mmol/L (135-145); eGFR 24.79
[2024-06-20 07:58] LABS: Hematocrit 35.5 % (37.0-47.0); Hemoglobin 11.5 g/dL (12.0-16.0); Mean Corp Hgb Conc. 32.4 g/dL (33.0-37.0); Mean Corpuscular Hgb 31.2 pg (27.0-31.0); Mean Corpuscular Volume 96.2 fL (81.0-99.0); Platelet Count 61 10^3/uL (130-400); Red Blood Cell Count 3.69 10^6/uL (4.20-5.40); Red Cell Dist. Width 15.9 % (11.5-14.5); White Blood Cell Count 5.4 10^3/uL (4.8-10.8)
[2024-06-20 08:41] VITALS: BMI 27.8
--- NOTE | 2024-06-20 08:50 | W.PN.HOSP.TC ---
Addendum entered and electronically signed by Christo Madrigal MD 06/20/24 15:32:
I saw and evaluated the patient. I reviewed the resident�s note and agree with findings and plan as documented in the resident�s note except for changes in my documentation
Patient was seen earlier. Late documentation
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
I saw and evaluated the patient. I reviewed the resident�s note and agree with findings and plan as documented in the resident�s note except for changes in my documentation.
Echo 06/11/2024-normal LV size. EF 50 to 55%. Enlarged RV with moderately reduced systolic function. RV volume overload with diastolic flattening of the septum.Severely dilated right atrium with RA pressure of 15 mmHg. Normal functioning
mechanical mitral valve and TAVR TR
CVS: S1-S2 normal, systolic murmur at right heart border
Chest: Decreased breath sounds at bases
Abdomen: Soft, NT
Extremities: B/L Pedal edema-better
# Acute on chronic HFpEF with cor pulmonale
Continue diuresis with Lasix 80 mg IV twice daily. Metolazone added.
Daily weights, intake output charting, CHF education
Patient was on torsemide 20 mg daily as outpatient
Patient is diuresing well therefore right heart cath canceled.
Weight coming down
Continue Alexis bandages for the lower extremity
Aiming for weight of 71 kg
# Metabolic alkalosis-contraction
# Moist cough productive-treat as acute bronchitis-bacterial. added Doxy. Chest x-ray reviewed by me
# Hyponatremia-secondary to hypervolemia-cannot rule out a component of SIADH. Check osmolality studies also
# Autoimmune hemolytic anemia. Hemoglobin stable. Treatment per hematology oncology
# Hypokalemia-replaced
# Elevated troponin-nonischemic myocardial injury
# Mildly elevated TSH with normal T4. Needs repeat in 6 weeks
# Coronary artery disease with history of CABG 2008
# JOJO on CKD stage IIIb-Hold sodium bicarb. Creatinine stable
# Elevated LFTs-chronically elevated LFTs- follow. op GI eval. elevated LFTs could be secondary to autoimmune hemolytic anemia also.
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 Discussed with hematology oncology. Outpatient follow-up on the platelets. No treatment at present
# Mechanical mitral valve 2008
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
# Permanent atrial fibrillation-continue Coumadin and metoprolol
# Hypertension-continue metoprolol
# Hyperlipidemiamia -restart statin when LFTs are at her baseline
# Diabetes-was on Prandin 0.5 AC as outpatient, restarted
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
# History of gout-continue allopurinol
# Chronic anemia-continue iron sulfate for iron deficiency
# Tremors upper ext's-present for months to years
# History of GI bleed-continue PPI
# History of subdural hematoma
# Chronic right bundle branch block
# Obesity with a BMI of 30
# Insomnia on Ambien as outpatient-continue
# DVT prophylaxis-continue Coumadin
# DNR
D/W CM-discussed that patient may be ready for discharge this weekend to the rehab.
Spoke to and updated
Discussed with Dr. Moran today. No inpatient treatment for thrombocytopenia/ITP or hemolytic anemia. Outpatient follow-up they will arrange once patient leaves the hospital.
Part of this note was created using voice recognition system. Occasional wrong word or��sound alike� substitutions may have inadvertently occurred due to the inherent limitations of voice recognition software. If noted kindly bring it to my
attention for correction.
Part of this note was created using voice recognition system. Occasional wrong word or��sound alike� substitutions may have inadvertently occurred due to the inherent limitations of voice recognition software. If noted kindly bring it to my
attention for correction.
Original Note:
Today's Communication/Plan
-
Continue diuresis
Monitor I's and O's and daily weights
Continue antibiotics
Cough suppression
Assessment / Plan
Assessment / Plan
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
2008, CKD stage IV, who presented to ED on 06/10/2024 with worsening SOB, fatigue with reported 13 pounds weight gain over 11 days. She also notes worsening edema involving both arms and legs patient's torsemide was recently increased and her
outpatient renal function has worsened per blood work.
Assessment/plan:
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
-Weight trending down (-3lb), volume status improving; goal weight 156.5lb.
-Continue IV Lasix 80 mg BID, metolazone 5 mg PO daily, and spironolactone 25 mg PO daily per nephrology.
-Continue KCl to 20 mEq BID.
-GDMT limited due to reduced RV systolic function and borderline GFR.
-Keep legs elevated with Teds.
-Follow BMP, I's and O's and daily weights.
-Follow and replete electrolytes.
-Cardiology appreciated.
-Monitor on telemetry.
-PT/OT.
#Acute metabolic alkalosis
-Likely due to contraction alkalosis from diuresis.
-Continue diuresis per nephro.
#Hyponatremia
-Na 131 today, Suspect hypovolemic hyponatremia vs SIADH.
-Obtain serum and urine osmolality with urine sodium in a.m.
#Intermittent cough
-Improved with Robitussin, continue QID.
-Most likely viral, CXR clear.
-Check flu and COVID serologies.
-Speech eval reports no signs of aspiration.
-Continue Doxy 100 BID Day #3/5 for anti-inflammatory property, and ppx for superimposed bacterial infection.
-Speech pathologist appreciated.
-Continue bronchodilators.
#JOJO on CKD stage IV-from cardiorenal syndrome
-Creatinine 2.0 (baseline 1.6).
-Continue diuresis.
-Nephrology appreciated.
-Follow BMP.
# ITP
-Strong positive Direct platelet IgM Ab representing ITP.
-Platelet level stable at 61, no indication for corticosteroids per hematology.
-Hematology following.
#Autoimmune hemolytic anemia-suggested by high LDH and low haptoglobin levels.
-Suspect superimposed Fe deficiency anemia.
-Venofer per Hematology.
-Appreciate hematology.
#Hypokalemia
-Due to diuresis.
-Will most likely improve with addition of spironolactone for GDMT.
-Monitor and replete.
#Chronic metabolic acidosis
-Improved.
-Hold sodium bicarbonate.
-Monitor BMP.
#Mechanical MVR-presented with subtherapeutic INR 1.74 [employer]
-INR remains subtherapeutic at 2.41 (goal 2.5-3.5).
-Will continue warfarin cautiously given her bleeding risks.
-Trend INR.
#Intermittent hypothermia
-Resolved.
-Likely related to heart failure, reduced circulatory function; no signs of sepsis
-TSH 5.10, not enough to treat subclinical hypothyroidism.
-Continue Yocasta hugger with warm blankets as needed.
-Follow temperature curve.
#Permanent A-fib.
-Stable, rate controlled on beta-claire.
-Will continue warfarin and follow INR.
-Consider electrophysiology intervention outpatient.
#Stage 1 decubitus sacral pressure wound (PoA)
-Wound dressing, pressure offload.
#Elevated LFTs
-Suspect due to vascular congestion versus antiplatelet antibodies
-Check antiplatelet antibody panel.
#Nonischemic myocardial injury with RV strain
-Abnormal troponin peaked at 0.088, no evidence of chest pain or ischemia on ECG.
-Ongoing RV strain with RV volume overload.
#Essential hypertension
-No known history of hypertensive systemic disease
-Home medications include metoprolol, no first-line agent
#T2DM
-Recent A1c 6.4%; no known microvascular complications
-Maintain on low SSI
-BG goal 100-200, avoid hypoglycemia
#Severe pulmonary hypertension
-Unclear etiology, no known history of rheumatic heart disease known
-Valves examined well, no signs of insufficiency
#Essential hypertension
-Continue metoprolol.
#Valvular heart disease
#S/P TAVR
#S/P MVR
DVT PPx: Warfarin
Diet: Regular
CODE STATUS: DNR/DNI

Data:
Echo 06/11/2024:
Normal left ventricular size with low normal systolic function. LVEF 50-55%. No regional wall motion abnormalities.
Enlarged right ventricle with moderately reduced systolic function. Evidence of RV volume overload with diastolic flattening of the septum. Severely dilated right atrium with RA pressure of 15 mmHg.
Normal functioning mechanical mitral valve.
Normal functioning TAVR valve.
Torrential tricuspid regurgitation. Unable to estimate PASP.
Compared to prior echocardiogram on 08/15/2023 there is no significant change.
CXR 06/10/2024:
Small patchy right basilar opacity which could represent subsegmental atelectasis and/or pneumonia and tiny right pleural effusion.
Anticipated Discharge: > 48 hours
Anticipated Discharge: > 48 hours
Subjective/Interval History
-
Date of Service: June 20, 2024
I have seen and examined patient. Patient sitting comfortable on the chair in no acute distress. Her volume status has continued to improve. She reports no chest pain, shortness of breath, palpitations, chills, fever, no pain, nausea or vomiting.
She also reports that her cough is resolving.
Objective Data
-
Labs:
Laboratory Results
06/20/24
06:52
WBC 5.4
Hgb 11.5 L
Hct 35.5 L
Plt Count 61 L
Sodium 131 L
Potassium 3.4 L
Chloride 89 L
Carbon Dioxide 30
BUN 74 H
Creatinine 2.0 H
Glucose 93
Calcium 8.7
Vital Signs:
Vital Signs
Temp Pulse Resp BP Pulse Ox
97.6 F 86 16 103/68 96
06/20/24 07:39 06/20/24 07:39 06/20/24 07:39 06/20/24 07:39 06/20/24 07:39
I&O
06/19/24 06/20/24 06/21/24
06:59 06:59 06:59
Intake Total 720 / 720 1090 / 1090
Output Total 500 / 500 450 / 450
Balance 220 / 220 640 / 640
Review of Systems
-
History Source: Patient
All other systems: Not reviewed unless documented
Constitutional: Reports Fatigue; Denies Fever
EENT: Reports No Symptoms Reported
Respiratory: Reports Cough; Denies Trouble Breathing or Wheezing
Cardiac: Reports No Symptoms and Palpitations
Abdomen/GI: Reports No Symptoms; Denies Abdominal Pain, Nausea or Vomiting
Genitourinary: Reports No Symptoms
Musculoskeletal: Reports No Symptoms
Skin: Reports No Symptoms
Neuro: Reports No Symptoms
Physical Exam
-
General: Well Developed, No Apparent Distress, Comfortable and Obese
HEENT: Normocephalic, Atraumatic, Moist Mucous Membranes and Anicteric
Respiratory: Clear to Auscultation and Non Labored Respirations; Negative Wheezes
Cardiac: S1/S2, Irregular Rhythm, Murmur, JVD and Other (2+ lower extremity edema); Negative Rub or Gallop
GI: Soft, Nontender, Nondistended and Normal Bowel Sounds
Musculoskeletal: No Clubbing, No Cyanosis and Normal Gait & Station
Skin: Warm, Dry and Normal Turgor; Negative Rash or Jaundice
Neuro: Awake, Alert, AO x 3 and Nonfocal/Grossly Intact
Psych: Calm
Data Reviewed
-
Diagnostic Radiology: Image personally visualized and interpreted, Report Reviewed by me and Discussed with Physician
Labs: Labs Reviewed by me, Discussed with Physician and Discussed with Patient
Old Records: Reviewed
[2024-06-20] MEDS: NOVOLOG FLEXPEN-LOW RESISTANCE SC ×2 (08:53→12:21)
[2024-06-20] MEDS: DESENEX/MITRAZOL/ZEASORB 1 APPLIC TOPICAL ×2 (08:53→21:42)
[2024-06-20] MEDS: ZAROXOLYN 5 MG PO (08:54)
[2024-06-20] MEDS: KCL 20 MEQ PO (08:54)
[2024-06-20] MEDS: PROTONIX 40 MG PO ×2 (08:54→21:46)
[2024-06-20] MEDS: ROBITUSSIN 200 MG PO ×4 (08:54→21:48)
[2024-06-20] MEDS: PRANDIN 0.5 MG PO (08:54)
[2024-06-20] MEDS: VIBRAMYCIN 100 MG PO ×2 (08:54→21:46)
[2024-06-20] MEDS: FEOSOL 325 MG PO (08:54)
[2024-06-20] MEDS: FIBERCON 625 MG PO (08:54)
[2024-06-20] MEDS: ALDACTONE 25 MG PO (08:55)
[2024-06-20] MEDS: SENOKOT-S 1 TABLET PO ×2 (08:55→21:46)
[2024-06-20] MEDS: FOLVITE 1 MG PO (08:55)
[2024-06-20] MEDS: LASIX 80 MG IV ×2 (08:55→17:21)
[2024-06-20] MEDS: TOPROL XL PO (09:05)
--- NOTE | 2024-06-20 10:24 | CM ---
Addendum entered by LESLIE Castillo 06/20/24 15:28:
Received consult from attending. Patient should be medically cleared for discharge tomorrow, Sunday. Placed a call to [facility] and spoke with Alejandra in admissions who stated that she can accept tomorrow. # For report [phone] and
fax# [phone]
Spoke with RN. Patient is confused/forgetful at baseline.
Medical necessity and transfer sheet completed and on chart. Patient will need IMM if she leaves tomorrow.
Met with patient's spouse who stated that patient wants to transfer back to [facility] or go to [facility].
Placed a call to [facility] and spoke with Sonia in admission who stated that she has no bed availability over the w/e.
Placed a call to [facility] but had to leave a message for admissions. Requested return call to determine bed availability.
Attending updated.
Spoke with patient's spouse, Naga, and he is agreeable/chooses a transfer to [facility] Sunday if patient is medically stable.
Addendum entered by LESLIE Castillo 06/20/24 10:56:
Received a call from Alejandra in admissions at [facility] who stated that she can accept patient pending bed availability day of discharge. Will continue to update her.
Original Note:
Made additional referrals to facilities that are close to patient's home, per discussion with patient and his who agreed that a facility close to their home would be their first round of choices.
Referrals Sent to: [facility], [facility], [facility]. Will await determinations regarding bed availability.
Plan: Case management will continue to follow and assist with discharge planning. SNF when stable.
--- NOTE | 2024-06-20 10:32 | W.PN.CD ---
Addendum entered and electronically signed by Milton Mcgovern MD 06/20/24 12:26:
78 yo female with chronic HFPEF, cardiorenal syndrome admitted with acute on chronic HFPEF. She continues to diurese. Exam with irregular rhythm, no murmurs, 1+ LE edema. Cr 2.0.
Continue diuresis. Replete K. Aiming for 71kg, then back to home regimen outlined below.
Tele.
Original Note:
Today's Communication / Plan
-
goal weight 71 kg.
continue IV Lasix 80mg BID, metolazone 5mg daily, Aldactone 25mg daily, KCL 20meq bid.
Impression / Plan
-
HFpEF with cor pulmonale: acute on chronic.
- high risk with cardiorenal syndrome.
- improving with diuresis, goal weight 71 kg.
- continue IV Lasix 80mg BID, metolazone 5mg daily, Aldactone 25mg daily, KCL 20meq bid.
- GFR borderline for initiation of SGLT2i at this time. can reassess as an outpatient.
- home regimen is torsemide 40mg AM, 20mg PM; Aldactone 25mg daily; metolazone 5mg //.
- continue daily weights, I&Os.
Permanent atrial fibrillation: rate controlled on Toprol, continue.
- OAC with Warfarin, also with mechanical MV.
- INR 2.41 today.
Mechanical mitral valve: stable on echo.
- continue Warfarin, target INR 2.5-3.5.
- INR 2.41 today. With her issues with recurrent hemorrhoidal bleeding would be cautious not to allow her INR to get too high.
History of TAVR: stable.
History of GI bleed/hemorrhoidal bleeding: stable w/o recurrence.
- follow CBC.
Coronary artery disease/history of coronary bypass grafting: stable w/o angina.
- continue with medical therapy.
Abnormal troponin: 0.078.
- in the setting of acute HFpEF and JOJO/cardiorenal syndrome.
- she denies any chest pain.
Single-chamber ICD: stable w/o discharges.
Physical Exam
Vital Signs/Labs
Vital Signs
Temp Pulse Resp BP Pulse Ox
97.6 F 86 16 103/68 96
06/20/24 07:39 06/20/24 09:05 06/20/24 07:39 06/20/24 09:05 06/20/24 09:12
06/19/24 06/20/24 06/21/24
06:59 06:59 06:59
Actual Weight 165 lb 4.8 oz 165 lb 1 oz 162 lb 1.6 oz
06/20/24 06:52
06/20/24 06:52
PT 26.7 Sec (11.4-14.6) H 06/19/24 05:41
INR 2.41 06/19/24 05:41
APTT Cancelled 06/14/24 18:00
Magnesium 2.4 mg/dl (1.6-2.3) H 06/11/24 09:29
Free T4 1.23 ng/dl (0.78-2.19) 06/12/24 07:21
06/10/24
15:21
Qvx-I-Rednupikuwe Pept 4900
Physical Exam
Constitutional: No acute distress
EENT: Anicteric and Moist mucous membranes
Cardiovascular: Rhythm/rate is irregular, Pedal edema present (mild/mod b/l LE), Systolic murmur present and Other (mechanical click)
Respiratory: Respiratory effort normal and Other (diminished b/l bases)
GI: Soft, Non tender and Normal bowel sounds
Neuro/Psych: AO x 3
Other: Skin (warm, dry) and Cardiac Device Site (stable)
Data Reviewed
-
Date of Service: June 20, 2024
Medical Decision Making: Reviewed Test Results
EKG: Tracing Personally Visualized and interpreted
Echo: Report Reviewed by me
Labs: Labs Reviewed by me
Old Records: Reviewed
[2024-06-20 11:28] LABS: Haptoglobin <10 mg/dL (30-200)
[2024-06-20] MEDS: PRANDIN PO ×2 (11:30→17:17)
[2024-06-20 11:46] LABS: INR 2.58; PT 27.7 Sec (11.4-14.6)
[2024-06-20 12:02] LABS: Glucose - Point of Care 129 mg/dl (70-99)
[2024-06-20] MEDS: FERRLECIT 110 MG IV (13:08)
[2024-06-20 14:57] VITALS: BP 107/64
--- NOTE | 2024-06-20 16:04 | W.PN.NEPH.PH ---
Today's Communication / Plan
-
cont diuresis and replace k
Assessment/Plan
-
Impression:
Acute on chr D CHF
Acute kidney injury
CKD stage IIIb with baseline creatinine 1.7
Metabolic acidosis
Permanent Atrial fibrillation on chronic anticoagulation
Hypertension
Diabetes
Valvular heart disease (hx of mechanical valve replacement)
CAD with history of CABG
ICD
Thrombocytopenia
Elevated LFTs
Plan:
JOJO-suspect cardiorenal, UA with pyuria, follow bladder scan only 99cc
U eosinophils-negative note she is on BID PPI
would continue lasix to 80mg IV BID and metolazone , non oliguric,weights down
replete K
ct stable at 2 and azotemia improving slowly
DW likely 71kg per cards
chr met acidosis improved, held po bicarb
BP soft, monitor on BB and Aldactone per cards
FR to 1400 sodium at 131
follow LFTs-improving
Thrombocytopenia , felt to be valvular-heme follows
All of her edema is not amenable for diuresis, elevated legs, TEDs
labs in am
d/w pt and at bedside
-
-
Date of Service: June 20, 2024
CC / HPI / ROS
-
Chief Complaint:
JOJO with CKD
History of Present Illness:
cr up at 2, azotemia BUN 74
BP soft but stable today
met acidosis resolved at 30
no fever
plt low 61 improving
Review of Systems:
no cp
no n/v
no SOB at rest but edema
Urine output not measured
Weights lower
Labs
-
Labs:
WBC 5.4 10^3/uL (4.8-10.8) 06/20/24 06:52
RBC 3.69 10^6/uL (4.20-5.40) L 06/20/24 06:52
Hgb 11.5 g/dL (12.0-16.0) L 06/20/24 06:52
Hct 35.5 % (37.0-47.0) L 06/20/24 06:52
Plt Count 61 10^3/uL (130-400) L 06/20/24 06:52
Sodium 131 mmol/L (135-145) L 06/20/24 06:52
Potassium 3.4 mmol/L (3.5-5.1) L 06/20/24 06:52
Chloride 89 mmol/L (98-107) L 06/20/24 06:52
Carbon Dioxide 30 mmol/L (22-30) 06/20/24 06:52
BUN 74 mg/dl (7-17) H 06/20/24 06:52
Creatinine 2.0 mg/dL (0.6-1.0) H 06/20/24 06:52
eGFR 24.79 06/20/24 06:52
Glucose 93 mg/dl (70-99) 06/20/24 06:52
Calcium 8.7 mg/dl (8.4-10.2) 06/20/24 06:52
Phosphorus 5.2 mg/dl (2.5-4.5) H 06/11/24 09:29
Tyc-V-Vibrvjnruoj Pept 4900 pg/ml 06/10/24 15:21
Albumin 3.7 g/dl (3.5-5.0) 06/19/24 05:41
Physical Exam
-
Vital Signs:
Vital Signs
Temp Pulse Resp BP Pulse Ox
97.6 F 99 17 107/64 95
06/20/24 07:39 06/20/24 14:57 06/20/24 14:57 06/20/24 14:57 06/20/24 14:57
Cardiovascular:: Regular rate and rhythm
Respiratory:: Bilateral: CTA
Lung Excursion:: Normal
Abdomen:: Nontender and Soft
Extremity Edema:: +2: Bilateral:
Rockwell Catheter: No
[2024-06-20 16:45] VITALS: BP 107/64
[2024-06-20 17:15] LABS: Glucose - Point of Care 188 mg/dl (70-99)
[2024-06-20] MEDS: COUMADIN 2.5 MG PO (17:15)
[2024-06-20] MEDS: ZYLOPRIM 100 MG PO (17:15)
[2024-06-20] MEDS: NOVOLOG FLEXPEN-LOW RESISTANCE 1 UNITS SC (17:18)
[2024-06-20 19:52] VITALS: BP 147/85
[2024-06-20 21:19] LABS: Glucose - Point of Care 170 mg/dl (70-99)
[2024-06-20] MEDS: KCL 40 MEQ PO (21:46)
[2024-06-20] MEDS: TOPROL XL 25 MG PO (21:47)
[2024-06-20 23:25] VITALS: BP 118/63
[2024-06-21 03:17] LABS: Hematocrit 35.5 % (37.0-47.0); Hemoglobin 11.7 g/dL (12.0-16.0); Mean Corpuscular Hgb 30.6 pg (27.0-31.0); Mean Corpuscular Volume 92.9 fL (81.0-99.0); Mean Platelet Volume 13.6 fL (7.4-10.4); Platelet Count 68 10^3/uL (130-400); Red Blood Cell Count 3.82 10^6/uL (4.20-5.40); Red Cell Dist. Width 15.9 % (11.5-14.5); White Blood Cell Count 6.7 10^3/uL (4.8-10.8)
[2024-06-21 03:39] VITALS: BP 97/64
[2024-06-21 03:43] LABS: Blood Urea Nitrogen 76 mg/dl (7-17); Calcium 8.9 mg/dl (8.4-10.2); Carbon Dioxide 28 mmol/L (22-30); Chloride 88 mmol/L (98-107); Estimated Creatinine Clearance 21 ml/min; Glucose 140 mg/dl (70-99); Magnesium 1.9 mg/dl (1.6-2.3); Potassium 4.3 mmol/L (3.5-5.1); Sodium 130 mmol/L (135-145); eGFR 23.38
[2024-06-21 04:12] LABS: Urine Sodium 92 mmol/L (30-90)
[2024-06-21 04:22] LABS: Osmolality Urine 323 mOsm/kg (300-900)
[2024-06-21 06:00] VITALS: BMI 27.5
[2024-06-21 06:04] LABS: Osmolality Serum 296 mOsm/kg (275-300)
[2024-06-21] MEDS: NOVOLOG FLEXPEN-LOW RESISTANCE SC (07:59)
[2024-06-21 08:12] LABS: Glucose - Point of Care 129 mg/dl (70-99)
--- NOTE | 2024-06-21 08:27 | W.PN.HOSP.TC ---
Today's Communication/Plan
-
Continue diuresis
Continue warfarin
Continue antibiotics
BMP in 2 days
Assessment / Plan
Assessment / Plan
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
2008, CKD stage IV, who presented to ED on 06/10/2024 with worsening SOB, fatigue with reported 13 pounds weight gain over 11 days. She also notes worsening edema involving both arms and legs patient's torsemide was recently increased and her
outpatient renal function has worsened per blood work.
Assessment/plan:
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
-Weight trending down (-2lb), volume status improving.
-Switch to home dose torsemide 40 mg in a.m., 20 mg in p.m.; spironolactone 25 mg daily; metolazone 5 mg //.
-Continue KCl to 20 mEq BID.
-GDMT limited due to reduced RV systolic function and borderline GFR.
-Keep legs elevated with Teds.
-Follow BMP, I's and O's and daily weights.
-Follow and replete electrolytes.
-Cardiology appreciated.
-Monitor on telemetry.
-PT/OT.
#Acute metabolic alkalosis
-Likely due to contraction alkalosis from diuresis.
-Continue diuresis per nephro.
#Hyponatremia�hypovolemic hyponatremia
-Na 130 today
-BMP in 1 week
#Intermittent cough
-Improved with Robitussin, continue QID.
-Most likely viral, CXR clear.
-Check flu and COVID serologies.
-Speech eval reports no signs of aspiration.
-Continue Doxy 100 BID Day #4/5 for anti-inflammatory property, and ppx for superimposed bacterial infection.
-Speech pathologist appreciated.
-Continue bronchodilators.
#JOJO on CKD stage IV-from cardiorenal syndrome
-Creatinine 2.1 (baseline 1.6).
-Continue diuresis.
-Nephrology appreciated.
-Follow BMP.
# ITP
-Strong positive Direct platelet IgM Ab representing ITP.
-Platelet level stable at 61, no indication for corticosteroids per hematology.
-Hematology following.
#Autoimmune hemolytic anemia-suggested by high LDH and low haptoglobin levels.
-Suspect superimposed Fe deficiency anemia.
-Venofer per Hematology.
-Appreciate hematology.
#Hypokalemia
-Due to diuresis.
-Will most likely improve with addition of spironolactone for GDMT.
-Monitor and replete.
#Chronic metabolic acidosis
-Improved.
-Hold sodium bicarbonate.
-Monitor BMP.
#Mechanical MVR-presented with subtherapeutic INR 1.74 [employer]
-INR remains subtherapeutic at 2.58 (goal 2.5-3.5).
-Will continue warfarin 2.5 mg daily cautiously given her bleeding risks.
-Trend INR.
#Intermittent hypothermia
-Resolved.
-Likely related to heart failure, reduced circulatory function; no signs of sepsis
-TSH 5.10, not enough to treat subclinical hypothyroidism.
-Continue Yocasta hugger with warm blankets as needed.
-Follow temperature curve.
#Permanent A-fib.
-Stable, rate controlled on beta-claire.
-Will continue warfarin and follow INR.
-Consider electrophysiology intervention outpatient.
#Stage 1 decubitus sacral pressure wound (PoA)
-Wound dressing, pressure offload.
#Elevated LFTs
-Suspect due to vascular congestion versus antiplatelet antibodies
-Check antiplatelet antibody panel.
#Nonischemic myocardial injury with RV strain
-Abnormal troponin peaked at 0.088, no evidence of chest pain or ischemia on ECG.
-Ongoing RV strain with RV volume overload.
#Essential hypertension
-No known history of hypertensive systemic disease
-Home medications include metoprolol, no first-line agent
#T2DM
-Recent A1c 6.4%; no known microvascular complications
-Maintain on low SSI
-BG goal 100-200, avoid hypoglycemia
#Severe pulmonary hypertension
-Unclear etiology, no known history of rheumatic heart disease known
-Valves examined well, no signs of insufficiency
#Essential hypertension
-Continue metoprolol.
#Valvular heart disease
#S/P TAVR
#S/P MVR
DVT PPx: Warfarin
Diet: Regular
CODE STATUS: DNR/DNI

Data:
Echo 06/11/2024:
Normal left ventricular size with low normal systolic function. LVEF 50-55%. No regional wall motion abnormalities.
Enlarged right ventricle with moderately reduced systolic function. Evidence of RV volume overload with diastolic flattening of the septum. Severely dilated right atrium with RA pressure of 15 mmHg.
Normal functioning mechanical mitral valve.
Normal functioning TAVR valve.
Torrential tricuspid regurgitation. Unable to estimate PASP.
Compared to prior echocardiogram on 08/15/2023 there is no significant change.
CXR 06/10/2024:
Small patchy right basilar opacity which could represent subsegmental atelectasis and/or pneumonia and tiny right pleural effusion.
Anticipated Discharge: > 48 hours
Anticipated Discharge: Today
Subjective/Interval History
-
Date of Service: June 21, 2024
Patient seen and examined. Was sitting comfortably on a chair. Reports that her cough has improved but still there. Denied chest pain, shortness of breath, palpitation, fever or chills. Stated that she wants to go home but will go to rehab nurse
to get stronger. Subjectively, patient looks improved.
Objective Data
-
Labs:
Laboratory Results
06/21/24
03:06
WBC 6.7
Hgb 11.7 L
Hct 35.5 L
Plt Count 68 L
Sodium 130 L
Potassium 4.3 D
Chloride 88 L
Carbon Dioxide 28
BUN 76 H
Creatinine 2.1 H
Glucose 140 H
Calcium 8.9
Vital Signs:
Vital Signs
Temp Pulse Resp BP Pulse Ox
98.9 F 95 18 97/64 97
06/21/24 03:39 06/21/24 03:39 06/21/24 03:39 06/21/24 03:39 06/21/24 03:39
I&O
1206/21/24 06/22/24
06:59 06:59 06:59
Intake Total 1090 / 1090 1310 / 1310
Output Total 450 / 450 100 / 100
Balance 640 / 640 1210 / 1210
Review of Systems
-
History Source: Patient
All other systems: Not reviewed unless documented
Constitutional: Reports Fatigue; Denies Fever
EENT: Reports No Symptoms Reported
Respiratory: Reports Cough; Denies Trouble Breathing or Wheezing
Cardiac: Reports No Symptoms and Palpitations
Abdomen/GI: Reports No Symptoms; Denies Abdominal Pain, Nausea or Vomiting
Genitourinary: Reports No Symptoms
Musculoskeletal: Reports No Symptoms
Skin: Reports No Symptoms
Neuro: Reports No Symptoms
Physical Exam
-
General: Well Developed, No Apparent Distress, Comfortable and Obese
HEENT: Normocephalic, Atraumatic, Moist Mucous Membranes and Anicteric
Respiratory: Clear to Auscultation and Non Labored Respirations; Negative Wheezes
Cardiac: S1/S2, Irregular Rhythm, Murmur, JVD and Other (2+ lower extremity edema); Negative Rub or Gallop
GI: Soft, Nontender, Nondistended and Normal Bowel Sounds
Musculoskeletal: No Clubbing, No Cyanosis and Normal Gait & Station
Skin: Warm, Dry and Normal Turgor; Negative Rash or Jaundice
Neuro: Awake, Alert, AO x 3 and Nonfocal/Grossly Intact
Psych: Calm
Data Reviewed
-
Diagnostic Radiology: Image personally visualized and interpreted, Report Reviewed by me and Discussed with Physician
Labs: Labs Reviewed by me, Discussed with Physician and Discussed with Patient
Old Records: Reviewed
[2024-06-21 08:48] VITALS: BP 99/59
[2024-06-21] MEDS: FIBERCON 625 MG PO (10:01)
[2024-06-21] MEDS: ZAROXOLYN PO (10:02)
[2024-06-21] MEDS: KCL PO (10:02)
[2024-06-21] MEDS: LASIX IV (10:02)
[2024-06-21] MEDS: PROTONIX 40 MG PO (10:02)
[2024-06-21] MEDS: TOPROL XL PO (10:03)
[2024-06-21] MEDS: SENOKOT-S 1 TABLET PO (10:03)
[2024-06-21] MEDS: FEOSOL 325 MG PO (10:04)
[2024-06-21] MEDS: FOLVITE 1 MG PO (10:04)
[2024-06-21] MEDS: ROBITUSSIN 200 MG PO ×2 (10:04→13:22)
[2024-06-21] MEDS: ALDACTONE 25 MG PO (10:05)
[2024-06-21] MEDS: VIBRAMYCIN 100 MG PO (10:06)
[2024-06-21] MEDS: DESENEX/MITRAZOL/ZEASORB 1 APPLIC TOPICAL (10:06)
[2024-06-21] MEDS: PRANDIN 0.5 MG PO ×2 (10:06→13:22)
--- NOTE | 2024-06-21 10:24 | W.PN.CD ---
Today's Communication / Plan
-
- home regimen is torsemide 40mg AM, 20mg PM; Aldactone 25mg daily; metolazone 5mg //.
- Can switch IV lasix to PO now. Got IV lasix this AM.
Impression / Plan
-
HFpEF with cor pulmonale: acute on chronic.
- high risk with cardiorenal syndrome.
- improving with diuresis, goal weight 71 kg.
- Can switch to home dose of Torsemide 40 mg PO now.
- Got Lasix 80mg IV this AM with metolazone 5mg daily, Aldactone 25mg daily, KCL 20meq bid.
- GFR borderline for initiation of SGLT2i at this time. can reassess as an outpatient.
- home regimen is torsemide 40mg AM, 20mg PM; Aldactone 25mg daily; metolazone 5mg //.
- continue daily weights, I&Os.
Permanent atrial fibrillation: rate controlled on Toprol, continue.
- OAC with Warfarin, also with mechanical MV.
- INR 2.5 today.
Mechanical mitral valve: stable on echo.
- continue Warfarin, target INR 2.5-3.5.
- INR 2.5 today. With her issues with recurrent hemorrhoidal bleeding would be cautious not to allow her INR to get too high.
History of TAVR: stable.
History of GI bleed/hemorrhoidal bleeding: stable w/o recurrence.
- follow CBC.
Coronary artery disease/history of coronary bypass grafting: stable w/o angina.
- continue with medical therapy.
Abnormal troponin: 0.078.
- in the setting of acute HFpEF and JOJO/cardiorenal syndrome.
- she denies any chest pain.
Single-chamber ICD: stable w/o discharges.
Physical Exam
Vital Signs/Labs
Vital Signs
Temp Pulse Resp BP Pulse Ox
97.9 F 108 20 99/59 95
06/21/24 08:48 06/21/24 08:48 06/21/24 08:48 06/21/24 08:48 06/21/24 08:48
06/20/24 06/21/24 06/22/24
06:59 06:59 06:59
Actual Weight 74.871 kg 72.717 kg
06/21/24 03:06
06/21/24 03:06
PT 27.7 Sec (11.4-14.6) H 06/20/24 11:21
INR 2.58 06/20/24 11:21
APTT Cancelled 06/14/24 18:00
Magnesium 1.9 mg/dl (1.6-2.3) 06/21/24 03:06
Free T4 1.23 ng/dl (0.78-2.19) 06/12/24 07:21
06/10/24
15:21
Ejv-S-Qxkjnvgneqm Pept 4900
Physical Exam
Constitutional: No acute distress and Comfortable
EENT: Anicteric and Moist mucous membranes
Cardiovascular: Pedal edema is absent and Rhythm/rate is irregular
Respiratory: Respiratory effort normal, Wheeze Absent and Crackles Absent
GI: Non tender and Normal bowel sounds
Neuro/Psych: Alert, Oriented and AO x 3
Data Reviewed
-
Date of Service: June 21, 2024
Medical Decision Making: Reviewed Test Results
EKG: Tracing Personally Visualized and interpreted
Echo: Report Reviewed by me
Labs: Labs Reviewed by me
Old Records: Reviewed
[2024-06-21 11:31] LABS: Glucose - Point of Care 240 mg/dl (70-99)
--- NOTE | 2024-06-21 11:59 | W.DCSUMMARY ---
Discharge Summary
Discharge Data
Date of Admission: 06/10/24
Date of Discharge: 06/21/24
-
Pending Results: No
Hospital Course
Discharging Physician : Christo Madrigal MD ; Edgar Soto MD
Disposition : SNF
Primary care physician : Jacob Loco MD
Principal Discharge diagnosis :
Decompensated HFpEF/RV failure
Metabolic alkalosis
Hyponatremia
Intermittent cough
JOJO on CKD stage IV
ITP
Autoimmune hemolytic anemia
Hypokalemia
Chronic metabolic acidosis
Mechanical MVR
Intermittent hypoxemia
Permanent A-fib
Stage I difficulty sacral pressure wound
Nonischemic myocardial injury
Essential hypertension
Type II DM
Severe pulmonary hypertension
Valvular heart disease
Hyperlipidemia
Obesity
Insomnia
History of subdural hematoma
Hospital Course :
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
stage IV, who presented to ED on 06/10/2024 with worsening SOB, fatigue with reported 13 pounds weight gain over 11 days. She also notes worsening edema involving both arms and legs while on increased dose of torsemide as outpatient. She was
also recently discharged from this hospital a week before presentation. While in the ED, a review of her record reviewed a 20lbs weight gain since discharge with a creatinine rise from 1.9 to 2.5. Her troponin was also elevated at 0.078, and
proBNP at 4900. Patient was initiated on IV Lasix, nitroglycerin, and cardiology was consulted. She was admitted for further evaluation and management.
While in the hospital, patient was seen in consultation with cardiology, hematology and nephrology. Her troponin was trended and peaked at 0.088, and metolazone was added to enhance diuresis. She did not require supplemental oxygen throughout her
stay in the hospital. Patient was later found to have nonproductive cough, a CXR obtained reported small patchy right basilar opacity suspicious for subsegmental atelectasis and/or pneumonia with right pleural effusion. COVID and flu serologies
were negative, and patient was started on doxycycline for 5 days with improvement of the cough. Patient also had thrombocytopenia which was observed during her previous stay in the hospital. On further evaluation, patient was found to have a
strong positive direct platelets IgM antibody representing ITP. However, since patient's platelet count remained above 50, there was no indication to start patient on corticosteroids per hematology.
Patient had an 11 days stay in the hospital and lost 41lbs of her admitted weight.
Condition on discharge: Awake, alert and oriented x3, answer question properly, able to make own decision and take care of activities of daily living, speech clear and comprehensive, continent of the bowel and bladder, ambulate with assistant engineer, ready
to go to [facility] for rehab. Her creatinine further perla to 2.1 due to diuresis and patient has been instructed to recheck BMP in 2 days. Patient has also been instructed to follow-up with cardiology, hematology, nephrology as outpatient and to
follow-up with her primary care physician in about a week. She has been further instructed to stop taking prednisone and sodium bicarbonate which she was taking prior to admission.
Patient has been evaluated and is medically stable for discharge.
Important imaging findings :
Data:
CXR 05/19/2024:
Lungs: The lungs are clear. There is no pneumothorax. There are tiny bilateral pleural effusions.
Heart: There is moderate cardiomegaly. There is post surgical change of the sternum and mediastinum. There is a left-sided cardiac device. There is minimal aortic arch calcification
Osseous structures: Visualized osseous structures are within normal limits.
IMPRESSION:
Tiny bilateral pleural effusions. Improved.
Echo 06/11/2024:
Normal left ventricular size with low normal systolic function. LVEF 50-55%. No regional wall motion abnormalities.
Enlarged right ventricle with moderately reduced systolic function. Evidence of RV volume overload with diastolic flattening of the septum. Severely dilated right atrium with RA pressure of 15 mmHg.
Normal functioning mechanical mitral valve.
Normal functioning TAVR valve.
Torrential tricuspid regurgitation. Unable to estimate PASP.
Compared to prior echocardiogram on 08/15/2023 there is no significant change.
CXR 06/10/2024:
Small patchy right basilar opacity which could represent subsegmental atelectasis and/or pneumonia and tiny right pleural effusion.
Discharge Plan
-
Patient Disposition: Longterm/SNF
Discharge Diagnosis/Procedures: Decompensated HFpEF/RV failure
Metabolic alkalosis
Hyponatremia
Intermittent cough
JOJO on CKD stage IV
ITP
Autoimmune hemolytic anemia
Hypokalemia
Chronic metabolic acidosis
Mechanical MVR
Intermittent hypoxemia
Permanent A-fib
Stage I difficulty sacral pressure wound
Nonischemic myocardial injury
Essential hypertension
Type II DM
Severe pulmonary hypertension
Valvular heart disease
Hyperlipidemia
Obesity
Insomnia
History of subdural hematoma
Condition: Good
Diet: 2 Gram Sodium and Diabetic, Carb Controlled
Additional Diets: Fluid restriction 50 ounce
Activity: With assistance
Blood Work: BMP in 2 days, INR 2 days, CBC 2 days, CMP 1 week
Others Tests: Thyroid function test in 6 weeks
Other Services: PT and OT
Specialty Instructions: Weigh Daily- Call MD for wt gain/loss 3 lbs overnight/5 lbs in 1 week
Activity Restrictions/Additional Instructions:
Miconazole powder to breast folds, affected areas.
Tuck non woven gauze pads or ABD pad under breasts.
Coccyx/buttocks red skin-clean with saline or soap and water, silicone border foam, change q 3 days and prn loosened dressing. If foam ineffective, apply zinc barrier ointment twice a day instead.
Pressure redistributing chair cushion (i.e. Air chair cushion)
Elevate heels off bed with pillow.
Follow-up with hematology oncology for ITP and hemolytic anemia
Instructions: *CBC Heart Failure Instructions
Referrals:
Nandini Diaz MD [Active] -
Manolo Arnold MD [Active] -
Jacob Loco MD [Non-Admitting Privileges] -
Argelia Alcantar MD [Active] -
Additional Discharge Medication Instructions: Take Torsemide by mouth, 40 mg tablet in the morning and 20 mg tablet at bedtime;
Take Doxycycline 100 mg capsule by mouth, two times daily. 3 more days
Take Metolazone 5 mg tablet by mouth once every other day (Mondays, Wednesdays and Fridays).
Stop sodium bicarbonate
Stop Prednisone
Prescriptions:
New
spironolactone 25 mg Tablet
25 mg PO DAILY Qty: 0 0RF
prochlorperazine edisylate 10 mg/2 mL (5 mg/mL) Solution
5 mg IV Q6HPRN PRN (Reason: n/v) Qty: 0 0RF
miconazole nitrate [Miconazorb AF] 2 % Powder
1 applic topical BID Qty: 0 0RF
folic acid 1 mg Tablet
1 mg PO DAILY Qty: 0 0RF
guaifenesin 100 mg/5 mL Liquid
200 mg PO QID Qty: 0 0RF
doxycycline hyclate 100 mg Capsule
100 mg PO Q12 Qty: 3 0RF
metolazone 5 mg Tablet
5 mg PO Q OTHER DAY Qty: 0 0RF
Rx Instructions:
M/W/F
zolpidem 5 mg Tablet
5 mg PO HSPRN PRN (Reason: insomnia) Qty: 2 0RF
torsemide 40 mg tablet
40 mg PO DAILY@0800 Qty: 30 0RF
warfarin 2.5 mg tablet
2.5 mg PO DAILY Qty: 30 0RF
Continued
atorvastatin 40 MG tablet
40 mg PO QPM
levalbuterol HCl 0.63 mg/3 mL solution for nebulization
0.63 mg INHALATION R Q8HPRN PRN (Reason: sob/wheezing)
ferrous sulfate 325 mg (65 mg iron) Tablet
325 mg PO DAILY
docusate sodium [Colace] 100 mg Capsule
100 mg PO DAILY
omega 3-hgl-fzw-fish oil [Fish Oil] 1,000 (120-180) mg Capsule
1 cap PO DAILY
pantoprazole 40 mg Tablet,Delayed Release (Dr/Ec)
40 mg PO BID 30 Days Qty: 60 0RF
therapeutic multivitamin Tablet
1 tab PO DAILY 30 Days Qty: 30 0RF
repaglinide 0.5 MG tablet
0.5 mg PO AC 30 Days Qty: 30 0RF
Patient Comments:
nitroglycerin 0.4 mg Tablet, Sublingual
0.4 mg SUBLINGUAL [id number] PRN (Reason: chest pain) 30 Days Qty: 20 0RF
senna 8.6 mg Capsule
8.6 mg PO DAILYPRN PRN (Reason: constipation) 30 Days Qty: 30 0RF
triamcinolone acetonide 0.1 % cream
1 applic TOPICAL DAILYPRN PRN (Reason: shoulder and back itching)
acetaminophen 325 mg Tablet
650 mg PO Q6HPRN PRN (Reason: mild-moderate pain/temp>100.4)
magnesium hydroxide [Milk of Magnesia] 400 mg/5 mL Suspension
30 ml PO [id number] PRN (Reason: if no bm in 72hrs)
hydrocortisone [Preparation H Hydrocortisone] 1 % Cream
1 applic DC Q8HPRN PRN (Reason: hemorrhoids)
bisacodyl [Dulcolax (bisacodyl)] 10 mg Suppository
10 mg DC DAILYPRN PRN (Reason: if mom not effective within 8 hrs)
calcium polycarbophil [Fiber-Lax] 625 mg Tablet
625 mg PO DAILY
Fleet Enema 19-7 gram/118 mL Enema
118 ml DC DAILYPRN PRN (Reason: if no results from dulcolax within 8hrs)
metoprolol succinate 25 mg Capsule,Sprinkle,Er 24hr
25 mg PO BID
allopurinol 100 mg tablet
100 mg PO QPM
polyethylene glycol 3350 [Miralax] 17 gram powder in packet
17 g PO DAILY
Rx Instructions:
Hold dose if have diarrhea
Changed
potassium chloride 10 mEq Capsule, Extended Release
20 meq PO BID 30 Days Qty: 30 0RF
torsemide 20 mg tablet
20 mg PO DAILY@1700 Qty: 90 0RF
Rx Instructions:
Take 40 mg in the Morning and 20 mg at bedtime
Discontinued
sodium bicarbonate 650 mg Tablet
1,300 mg PO DAILY Qty: 60 0RF
prednisone 10 mg Tablet
See Rx Instructions .ROUTE .COMPLEX Qty: 30 0RF
Rx Instructions:
Take By Mouth:
20 mg daily x3 days (06/09-06/12), 10 mg daily x3 days(06/12-06/15).
sodium chloride 0.9 % Solution
0 ml IV USEASDIRECTD
Rx Instructions:
inject 50ml/hr subscutaneously every shift for abnormal lab values for 2 days. run at 50mls/hr via hypodermoclysis x 2L
zolpidem 5 mg tablet
5 mg PO HSPRN PRN (Reason: insomnia)
Discharge Orders:
Discharge Patient (As Directed); Ordered 06/21/24
Ordered By: Edgar Soto
Discharge Date and Time
Discharge Date/Time: 06/21/24 15:47
Print Language: [place]
[2024-06-21] MEDS: NOVOLOG FLEXPEN-LOW RESISTANCE 2 UNITS SC (12:06)
--- NOTE | 2024-06-21 12:21 | CM ---
Addendum entered by Arline Banegas 06/21/24 13:02:
IMM benefit explained; form signed
Original Note:
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
CM spoke with via phone; he is on his way to the hospital
Report [phone]
[2024-06-21 13:15] VITALS: BP 114/74
[2024-06-21 14:15] VITALS: BP 114/69
--- NOTE | 2024-06-21 14:57 | W.PN.NEPH.PH ---
Today's Communication / Plan
-
see plan
Assessment/Plan
-
Impression:
Acute on chr D CHF
Acute kidney injury
CKD stage IIIb with baseline creatinine 1.7
Metabolic acidosis
Permanent Atrial fibrillation on chronic anticoagulation
Hypertension
Diabetes
Valvular heart disease (hx of mechanical valve replacement)
CAD with history of CABG
ICD
Thrombocytopenia
Elevated LFTs
Plan:
JOJO-suspect cardiorenal, UA with pyuria, follow bladder scan only 99cc
U eosinophils-negative note she is on BID PPI
ct stable at 2.1 and azotemia stable
DW likely 71kg per cards
chr met acidosis improved, held po bicarb
BP soft, monitor on BB and Aldactone per cards
FR to 1400 sodium at 130
follow LFTs-improving
Thrombocytopenia , felt to be valvular-heme follows
All of her edema is not amenable for diuresis, elevated legs, TEDs
ok for d/c , diuretics and other meds as listed per cards
d/w pt and at bedside
She will need f/u with nephro out pt, can get refereed to local nephrology by her PCP
if not I left ph number if they decided to f/u with us
BMP next week
-
-
Date of Service: June 21, 2024
CC / HPI / ROS
-
Chief Complaint:
JOJO with CKD
History of Present Illness:
cr up at 2.1, azotemia BUN 76
BP stable today
met acidosis resolved at 28
no fever
plt low - improving
Review of Systems:
no cp
no n/v
no SOB at rest but edema
Urine output not measured
Weights lower
Labs
-
Labs:
WBC 6.7 10^3/uL (4.8-10.8) 06/21/24 03:06
RBC 3.82 10^6/uL (4.20-5.40) L 06/21/24 03:06
Hgb 11.7 g/dL (12.0-16.0) L 06/21/24 03:06
Hct 35.5 % (37.0-47.0) L 06/21/24 03:06
Plt Count 68 10^3/uL (130-400) L 06/21/24 03:06
Sodium 130 mmol/L (135-145) L 06/21/24 03:06
Potassium 4.3 mmol/L (3.5-5.1) D 06/21/24 03:06
Chloride 88 mmol/L (98-107) L 06/21/24 03:06
Carbon Dioxide 28 mmol/L (22-30) 06/21/24 03:06
BUN 76 mg/dl (7-17) H 06/21/24 03:06
Creatinine 2.1 mg/dL (0.6-1.0) H 06/21/24 03:06
eGFR 23.38 06/21/24 03:06
Glucose 140 mg/dl (70-99) H 06/21/24 03:06
Calcium 8.9 mg/dl (8.4-10.2) 06/21/24 03:06
Phosphorus 5.2 mg/dl (2.5-4.5) H 06/11/24 09:29
Djo-T-Swypsizooqd Pept 4900 pg/ml 06/10/24 15:21
Albumin 3.7 g/dl (3.5-5.0) 06/19/24 05:41
Physical Exam
-
Vital Signs:
Vital Signs
Temp Pulse Resp BP Pulse Ox
97.6 F 93 20 114/69 95
06/21/24 14:15 06/21/24 14:15 06/21/24 14:15 06/21/24 14:15 12/07/24 14:15
Cardiovascular:: Regular rate and rhythm
Respiratory:: Bilateral: CTA
Lung Excursion:: Normal
Abdomen:: Nontender and Soft
Extremity Edema:: +1: Bilateral:
[place] Catheter: No
--- NOTE | 2024-06-21 15:24 | W.PN.UPDATE ---
Update Note
Progress Note Update
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
I saw and evaluated the patient. I reviewed the resident�s note and agree with findings and plan as documented in the resident�s note except for changes in my documentation.
Echo 06/11/2024-normal LV size. EF 50 to 55%. Enlarged RV with moderately reduced systolic function. RV volume overload with diastolic flattening of the septum.Severely dilated right atrium with RA pressure of 15 mmHg. Normal functioning
mechanical mitral valve and TAVR TR
CVS: S1-S2 normal, systolic murmur at right heart border
Chest: Decreased breath sounds at bases
Abdomen: Soft, NT
Extremities: B/L Pedal edema-better
# Acute on chronic HFpEF with cor pulmonale
Continue diuresis with Lasix 80 mg IV twice daily. Metolazone Sunday
Daily weights, intake output charting, CHF education
Patient was on torsemide 20 mg daily as outpatient
Patient is diuresing well therefore right heart cath canceled.
Weight coming down
Continue Alexis bandages for the lower extremity
Switch diuretics to p.o. Torsemide 40 mg in the morning and 20 mg in the evening
Discussed about Alexis bandages for lower extremities
# Metabolic alkalosis-contraction
# Moist cough productive-treat as acute bronchitis-bacterial. added Doxy. Chest x-ray reviewed by me
# Hyponatremia-secondary to hypervolemia-cannot rule out a component of SIADH.
# Autoimmune hemolytic anemia. Hemoglobin stable. Treatment per hematology oncology
# Hypokalemia-replaced
# Elevated troponin-nonischemic myocardial injury
# Mildly elevated TSH with normal T4. Needs repeat in 6 weeks
# Coronary artery disease with history of CABG 2008
# JOJO on CKD stage IIIb-Hold sodium bicarb.
# Elevated LFTs-chronically elevated LFTs- follow. op GI eval. elevated LFTs could be secondary to autoimmune hemolytic anemia also.
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 Discussed with hematology oncology. Outpatient follow-up on the platelets. No treatment at present
# Mechanical mitral valve 2008
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
# Permanent atrial fibrillation-continue Coumadin and metoprolol
# Hypertension-continue metoprolol
# Hyperlipidemia -restart statin
# Diabetes-was on Prandin 0.5 AC as outpatient, restarted
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
# History of gout-continue allopurinol
# Chronic anemia-continue iron sulfate for iron deficiency
# Tremors upper ext's-present for months to years
# History of GI bleed-continue PPI
# History of subdural hematoma
# Chronic right bundle branch block
# Obesity with a BMI of 30
# Insomnia on Ambien as outpatient-continue
# DVT prophylaxis-continue Coumadin
# DNR
Nephrology discussed with patient therefore I did not make a phone call.
Discussed with RN
Discussed with nephrology and cardiology
Follow-up care discussed with patient
More than 30 minutes spent in discharge including
Final examination of the patient
Summarizing hospital stay
Instructions for continuing care to all relevant caregivers
Preparation of discharge records, prescriptions, and referral forms
Total time spent (in minutes): 37 min
--- NOTE | 2024-06-21 19:16 | PTCARENOTE ---
Spoke with TOLU Boyd from [facility], gave report on patient.
== END 2024-06-21 15:47 | DRG 291 ==
LOC: 3 WEST ACU 19:24
PROVIDERS: Internal Medicine; Nurse Practitioner Family; Physician Assistant Medical; Student in an Organized Health Care Education/Training Program; ADMITTING PHYSICIAN Internal Medicine; ATTENDING PHYSICIAN Hospitalist; CONSULT PHYSICIAN Internal Medicine; EMERGENCY PHYSICIAN Student in an Organized Health Care Education/Training Program; FAMILY PHYSICIAN Family Medicine; OTHER PHYSICIAN Internal Medicine Cardiovascular Disease; OTHER PHYSICIAN Internal Medicine Hematology & Oncology
DX: I13.0 Hypertensive heart and chronic kidney disease with heart failure and stage 1 through stage 4 chronic kidney disease, or unspecified chronic kidney disease (principal); I50.33 Acute on chronic diastolic (congestive) heart failure; I48.21 Permanent atrial fibrillation; D59.10 Autoimmune hemolytic anemia, unspecified; D69.3 Immune thrombocytopenic purpura; N18.4 Chronic kidney disease, stage 4 (severe); E87.4 Mixed disorder of acid-base balance; Z66 Do not resuscitate; E87.1 Hypo-osmolality and hyponatremia; N17.9 Acute kidney failure, unspecified; R65.10 Systemic inflammatory response syndrome (SIRS) of non-infectious origin without acute organ dysfunction; I25.10 Atherosclerotic heart disease of native coronary artery without angina pectoris; E78.5 Hyperlipidemia, unspecified; E11.22 Type 2 diabetes mellitus with diabetic chronic kidney disease; I5A Non-ischemic myocardial injury (non-traumatic); E87.6 Hypokalemia; I27.20 Pulmonary hypertension, unspecified; I27.81 Cor pulmonale (chronic); T68.XXXA Hypothermia, initial encounter; L89.151 Pressure ulcer of sacral region, stage 1; I45.10 Unspecified right bundle-branch block; E66.9 Obesity, unspecified; Z68.30 Body mass index [BMI] 30.0-30.9, adult; D50.9 Iron deficiency anemia, unspecified; R09.02 Hypoxemia; G47.00 Insomnia, unspecified; Z11.52 Encounter for screening for COVID-19; Z95.810 Presence of automatic (implantable) cardiac defibrillator; Z95.3 Presence of xenogenic heart valve; Z95.1 Presence of aortocoronary bypass graft; Z86.79 Personal history of other diseases of the circulatory system; Z79.899 Other long term (current) drug therapy; Z79.84 Long term (current) use of oral hypoglycemic drugs
CPT/HCPCS: 71046; 80048; 80053; 81003; 81015; 81099; 82248; 82570; 82728; 82746; 82805; 82962; 83010; 83540; 83550; 83605; 83615; 83735; 83880; 83930; 83935; 84100; 84300; 84439; 84443; 84484; 85025; 85027; 85045; 85610; 85730; 86023; 86880; 87086; 87502; 87811; 92610; 93005; 93306; 94640; 96374; 97116; 97163; 97167; 97530; 97535; 99285; J2916

== ENCOUNTER → 2024-06-23 09:06 | Outpatient (REF) | payer OTHER, MEDICARE, SELFPAY ==
[2024-06-23 10:38] LABS: PT 26.2 Sec (11.4-14.6)
[2024-06-23 10:45] LABS: Blood Urea Nitrogen 78 mg/dl (7-17); Calcium 8.8 mg/dl (8.4-10.2); Carbon Dioxide 23 mmol/L (22-30); Chloride 92 mmol/L (98-107); Glucose 68 mg/dl (70-99); Potassium 3.6 mmol/L (3.5-5.1); Sodium 129 mmol/L (135-145); eGFR 22.11
[2024-06-23 10:50] LABS: Hematocrit 34.9 % (37.0-47.0); Hemoglobin 11.2 g/dL (12.0-16.0); Mean Corp Hgb Conc. 32.1 g/dL (33.0-37.0); Mean Corpuscular Hgb 31.1 pg (27.0-31.0); Mean Corpuscular Volume 96.9 fL (81.0-99.0); Mean Platelet Volume 13.3 fL (7.4-10.4); Platelet Count 80 10^3/uL (130-400); Red Cell Dist. Width 16.1 % (11.5-14.5); White Blood Cell Count 5.1 10^3/uL (4.8-10.8)
== END ==
LOC: OLABP 09:06
PROVIDERS: ATTENDING PHYSICIAN Family Medicine
DX: I50.33 Acute on chronic diastolic (congestive) heart failure (principal); J20.0 Acute bronchitis due to Mycoplasma pneumoniae; E87.1 Hypo-osmolality and hyponatremia; E87.6 Hypokalemia; I5A Non-ischemic myocardial injury (non-traumatic); N17.9 Acute kidney failure, unspecified; I13.0 Hypertensive heart and chronic kidney disease with heart failure and stage 1 through stage 4 chronic kidney disease, or unspecified chronic kidney disease; N18.30 Chronic kidney disease, stage 3 unspecified; R94.5 Abnormal results of liver function studies; D69.6 Thrombocytopenia, unspecified; I48.21 Permanent atrial fibrillation; D64.9 Anemia, unspecified
CPT/HCPCS: 36415; 80048; 85027; 85610

== ENCOUNTER → 2024-06-26 11:17 | Outpatient (REF) | payer OTHER, MEDICARE, SELFPAY ==
[2024-06-26 11:37] LABS: INR 2.33
== END ==
LOC: OLABP 11:17
PROVIDERS: ATTENDING PHYSICIAN Family Medicine
DX: I50.33 Acute on chronic diastolic (congestive) heart failure (principal); J20.0 Acute bronchitis due to Mycoplasma pneumoniae; E87.1 Hypo-osmolality and hyponatremia; E87.6 Hypokalemia; I5A Non-ischemic myocardial injury (non-traumatic); D64.9 Anemia, unspecified; I13.0 Hypertensive heart and chronic kidney disease with heart failure and stage 1 through stage 4 chronic kidney disease, or unspecified chronic kidney disease; N17.9 Acute kidney failure, unspecified; N18.30 Chronic kidney disease, stage 3 unspecified; R94.5 Abnormal results of liver function studies; D69.6 Thrombocytopenia, unspecified; I48.21 Permanent atrial fibrillation
CPT/HCPCS: 36415; 85610

== ENCOUNTER → 2024-06-27 11:55 | Outpatient (REF) | payer OTHER, MEDICARE, SELFPAY ==
[2024-06-27 13:34] LABS: ALT (SGPT) 36 U/L (0-35); AST (SGOT) 86 U/L (14-36); Albumin 3.8 g/dl (3.5-5.0); Alkaline Phosphatase 248 U/L (38-126); Blood Urea Nitrogen 84 mg/dl (7-17); Calcium 9.2 mg/dl (8.4-10.2); Carbon Dioxide 24 mmol/L (22-30); Chloride 95 mmol/L (98-107); Glucose 83 mg/dl (70-99); Potassium 4.1 mmol/L (3.5-5.1); Sodium 132 mmol/L (135-145); Total Bilirubin 2.5 mg/dl (0.2-1.3); Total Protein 6.5 g/dl (6.3-8.2); eGFR 19.92
== END ==
LOC: OLABP 11:55
PROVIDERS: ATTENDING PHYSICIAN Family Medicine
DX: I13.0 Hypertensive heart and chronic kidney disease with heart failure and stage 1 through stage 4 chronic kidney disease, or unspecified chronic kidney disease (principal); I50.33 Acute on chronic diastolic (congestive) heart failure; J20.0 Acute bronchitis due to Mycoplasma pneumoniae; E78.1 Pure hyperglyceridemia; E87.6 Hypokalemia; I5A Non-ischemic myocardial injury (non-traumatic); N17.9 Acute kidney failure, unspecified; D64.9 Anemia, unspecified; N18.30 Chronic kidney disease, stage 3 unspecified; R94.5 Abnormal results of liver function studies; D69.6 Thrombocytopenia, unspecified; I48.21 Permanent atrial fibrillation
CPT/HCPCS: 36415; 80053

== ENCOUNTER → 2024-06-30 10:43 | Outpatient (REF) | payer OTHER, MEDICARE, SELFPAY ==
[2024-06-30 12:39] LABS: Blood Urea Nitrogen 83 mg/dl (7-17); Calcium 9.5 mg/dl (8.4-10.2); Carbon Dioxide 24 mmol/L (22-30); Chloride 93 mmol/L (98-107); Glucose 125 mg/dl (70-99); Potassium 4.4 mmol/L (3.5-5.1); Sodium 134 mmol/L (135-145); eGFR 19.92
== END ==
LOC: OLABP 10:43
PROVIDERS: ATTENDING PHYSICIAN Family Medicine
DX: I50.33 Acute on chronic diastolic (congestive) heart failure (principal); J20.0 Acute bronchitis due to Mycoplasma pneumoniae; E87.6 Hypokalemia; D64.9 Anemia, unspecified; R94.5 Abnormal results of liver function studies
CPT/HCPCS: 36415; 80048

== ENCOUNTER → 2024-07-01 09:18 | Outpatient (REF) | payer OTHER, MEDICARE, SELFPAY ==
[2024-07-01 10:32] LABS: INR 2.34; PT 25.7 Sec (11.4-14.6)
== END ==
LOC: OLABP 09:18
PROVIDERS: ATTENDING PHYSICIAN Family Medicine
DX: I50.33 Acute on chronic diastolic (congestive) heart failure (principal); J20.0 Acute bronchitis due to Mycoplasma pneumoniae; E87.1 Hypo-osmolality and hyponatremia; E87.6 Hypokalemia; I5A Non-ischemic myocardial injury (non-traumatic); D64.9 Anemia, unspecified; N17.9 Acute kidney failure, unspecified; N18.30 Chronic kidney disease, stage 3 unspecified; R94.5 Abnormal results of liver function studies; D69.6 Thrombocytopenia, unspecified; I48.21 Permanent atrial fibrillation; I13.0 Hypertensive heart and chronic kidney disease with heart failure and stage 1 through stage 4 chronic kidney disease, or unspecified chronic kidney disease
CPT/HCPCS: 36415; 85610

== ENCOUNTER → 2024-07-06 09:25 | Outpatient (REF) | payer OTHER, MEDICARE, SELFPAY ==
[2024-07-06 10:02] LABS: INR 3.17; PT 32.3 Sec (11.4-14.6)
== END ==
LOC: OLAB 09:25
PROVIDERS: ATTENDING PHYSICIAN Family Medicine
DX: D64.9 Anemia, unspecified (principal); I48.21 Permanent atrial fibrillation
CPT/HCPCS: 36415; 85610

== ENCOUNTER → 2024-07-07 10:20 | Outpatient (REF) | payer OTHER, MEDICARE, SELFPAY ==
[2024-07-07 11:11] LABS: % Basophils 1.3 % (0-2); % Eosinophils 1.5 % (0-6); % Immature Granulocytes 0.2 % (0-0.5); % Lymphocytes 26.6 % (20.5-51.1); % Monocytes 12.7 % (1.7-9.3); % Neutrophils 57.7 % (42.2-75.2); Absolute Basophils 0.1 10^3/uL (0-0.2); Absolute Eosinophils 0.1 10^3/uL (0-0.7); Absolute Lymphocytes 1.2 10^3/uL (1.2-3.4); Absolute Monocytes 0.6 10^3/uL (0.1-0.6); Absolute Neutrophils 2.6 10^3/uL (1.4-6.5); Hemoglobin 14.9 g/dL (12.0-16.0); Mean Corp Hgb Conc. 32.4 g/dL (33.0-37.0); Mean Corpuscular Hgb 30.5 pg (27.0-31.0); Mean Corpuscular Volume 94.1 fL (81.0-99.0); Mean Platelet Volume 11.9 fL (7.4-10.4); Nucleated Red Blood Cells % 0 %; Platelet Count 258 10^3/uL (130-400); Red Blood Cell Count 4.89 10^6/uL (4.20-5.40); Red Cell Dist. Width 16.4 % (11.5-14.5); White Blood Cell Count 4.6 10^3/uL (4.8-10.8)
[2024-07-07 11:33] LABS: ALT (SGPT) 40 U/L (0-35); AST (SGOT) 97 U/L (14-36); Albumin 4.9 g/dl (3.5-5.0); Alkaline Phosphatase 327 U/L (38-126); Blood Urea Nitrogen 103 mg/dl (7-17); Calcium 10.4 mg/dl (8.4-10.2); Carbon Dioxide 20 mmol/L (22-30); Chloride 97 mmol/L (98-107); Glucose 145 mg/dl (70-99); Potassium 4.7 mmol/L (3.5-5.1); Sodium 133 mmol/L (135-145); Total Bilirubin 2.4 mg/dl (0.2-1.3); Total Protein 8.2 g/dl (6.3-8.2); eGFR 17.29
== END ==
LOC: OLABP 10:20
PROVIDERS: ATTENDING PHYSICIAN Family Medicine
DX: I50.33 Acute on chronic diastolic (congestive) heart failure (principal); J20.0 Acute bronchitis due to Mycoplasma pneumoniae; E87.1 Hypo-osmolality and hyponatremia; E87.6 Hypokalemia; I5A Non-ischemic myocardial injury (non-traumatic); N17.9 Acute kidney failure, unspecified; N18.30 Chronic kidney disease, stage 3 unspecified; R94.5 Abnormal results of liver function studies; D69.6 Thrombocytopenia, unspecified; I48.21 Permanent atrial fibrillation; D64.9 Anemia, unspecified
CPT/HCPCS: 36415; 80053; 85025

== ENCOUNTER 2024-07-30 23:58 | Inpatient (IN) | payer MEDICARE, OTHER, SELFPAY ==
[2024-07-30 20:24] VITALS: BP 131/89
[2024-07-30 20:25] VITALS: BMI 28.1
[2024-07-30 20:36] VITALS: BP 110/80
--- NOTE | 2024-07-30 20:39 | ED.GENMED ---
History of Present Illness
General
Chief Complaint: Weakness
Source: patient and ambulance crew
Time Seen by Provider: 07/30/24 20:21
History of Present Illness
History of Present Illness:
78-year-old female brought to the emergency room by ambulance for lethargy evidently. Patient was evidently discharged from [facility] either today or yesterday. Unclear what the reason for her hospitalization was. Patient seems sleepy but
is arousable and does answer simple questions. She denies any particular complaints. She is noted by medics to be tachycardic in the 130s.
Past History
Past History
ED Past Medical History: Arrthythmia ( out of hospital cardiac arrest, ventricular fibrillation, PVCs, permanent atrial fibrillation,), CAD, CHF, HTN, Hypercholesterolemia, NIDDM, Valvular disease and Other (Pneumonia, GIB, Chronic cough, Anal
fissures. )
ED Past Surgical History: Cardiac (Pacer/Defib, Mitral valve replaced,. CABG X 4, TAVR), Cholecystectomy and Other (cataracts)
Social History
Tobacco: Non-smoker
Alcohol: None
Drug: None
Personal:
Living: with family
Employment: Retired
Family History
Family History: Other (Noncontributory)
Phy Exam
Physical Exam
Physical Exam:
General: Awake, somewhat sleepy, appears chronically ill
Vitals: Tachycardic
Head: Atraumatic
Eyes: Pupils equal, EOMI
Throat: Airway intact, no exudates, dry mucosa
Neck: Trachea midline
Lungs: Decreased aeration but seem clear bilaterally
Heart: Tachycardic, irregular rate, no murmurs
Abd: Soft, Nontender, No pulsatile mass
Neuro: Grossly nonfocal
Skin: Warm, dry, areas of ecchymosis/purpura noted about the skin
Extremities: pulses equal b/l, 3+ edema
Course
Orders/Labs/Results
Orders:
Orders
07/30/24 20:24
Electrocardiogram (*1) Urgent
Reason for Study: Atrial Fibrillation
EKG- Treatment ONCE
07/30/24 20:32
Cardiac Monitoring- Treatment ONCE
Straight cath- Treatment ONCE
CR Chest Portable - 1 View Urgent
Comment:
Reason For Exam: fever
Reason Study Needs to be Portable: Patient Unstable
07/30/24 20:33
Acetaminophen [Tylenol/Feverall] 650 mg RECTAL NOW STA
Lactated Ringers [Lr] 1,000 ml IV BOLUS
07/30/24 20:35
Lactated Ringers [Lr] 500 ml IV BOLUS
07/30/24 20:38
Complete Blood Count/With Diff Urgent
Comprehensive Metabolic Panel Urgent
Lactic Acid Q4H
Comment: CANCEL 2nd LACTIC ACID IF 1st LACTIC ACID IS LESS THAN 2
Prothrombin Time Urgent
Blood Culture Q30M
PEYTON Source: Blood/Venous
Specimen Description:
Blood Culture Q30M
PEY[place] Source: Blood/Venous
Specimen Description:
Influenza A+B Rapid Molecular Urgent
PEYTON Source: Nasal Swab
Specimen Description:
07/30/24 20:42
Acetaminophen [Tylenol] 650 mg .ROUTE .STK-MED ONE
07/30/24 21:03
COVID-19 Antigen Urgent
Source: Nasal Swab
Urinalysis Reflex To Culture Urgent
Date Specimen was Collected: 07/30/24
Time Specimen was Collected: 20:39
07/30/24 21:46
CT Head W/o Iv Contrast Urgent
Comment:
Reason For Exam: altered mental status
07/30/24 21:50
Cefepime HCl [Maxipime] 2,000 mg IV NOW STA
07/30/24 21:51
Vancomycin [Vancocin] 1,500 mg 0.9% Sodium Chloride 500 ml [Nss] 500 ml IV NOW
07/30/24 22:33
Sterile Water [Sterile Water For Injection] 20 ml .ROUTE .STK-MED
07/30/24 22:43
Ammonia Urgent
07/30/24 23:00
Flush (0.9% Sodium Chloride) [Flush (Nss)] See Dose Instructions IV PER PROTOCOL
07/30/24 23:42
Admit/Transfer Patient As Directed
Co-Sign Provider:
Level of Care: Inpatient admission
Assign to:: Telemetry
Physician / Group: navin
Diagnosis: hepatic encephelopathy
Reason for Telemetry: Arrhythmia
Date to Stop Telemetry: 08/02/24
Time to Stop Telemetry: 11:00
Reason for Hospitalization: hepatic encephelopathy
Expected length of stay greater than two midnights?: Yes
ELOS- Estimated Length of Stay in days: 2
I certify the patient meets the requirements for IP care: Yes
PRN Pain Medication Management As Directed
May give lesser potent ordered pain med per pt: Yes
preference::
Protocol:: Medication orders for pain may be administered in a
manner that supports deferring to patient preference
when the pt is:
- Requesting an ordered lesser potent pain medication.
Least to most potent pain medications are defined
as: acetaminophen < NSAID < tramadol < opioids
(morphine, oxycodone, hydromorphone).
- Requesting a lesser dose of the same medication IF
ORDERED.
- Requesting a less intrusive route of administration
if both routes are prescribed by the provider (PO <
IV).
07/30/24 23:43
Code Status As Directed
Resuscitation Status: Do not resuscitate
Reached after discussion with pt or family/Healthcare POA: Yes
DNR Bracelet Application ONCE
07/31/24 01:15
Lactic Acid Q4H
Comment: CANCEL 2nd LACTIC ACID IF 1st LACTIC ACID IS LESS THAN 2
07/31/24 02:11
0.9% Sodium Chloride 1000 ml [Nss] 1,000 ml IV 70 mls/hr
Dextrose 50%-Water [Dextrose 50% Syringe] 12.5 grams IV [id number] PRN
Glucagon [GlucaGen] 1 mg IM PRN PRN
Levalbuterol [Xopenex 0.63 mg Inhalant Solution] 0.63 mg INH R Q8HPRN PRN
Nitroglycerin Sublingual [Nitrostat (Sublingual)] 0.4 mg SL [id number] PRN
Sennosides [Senokot] 8.6 mg PO DAILYPRN PRN
VANCOMYCIN Pharmacy to Dose [VANCOCIN Pharmacy to Dose] 1 each Pharmacy To Prepare [Call Pharmacy To Prepare] 0 ml IV PER PROTOCOL
07/31/24 02:11
CARDIOLOGY CONSULT Routine
Consulting Provider: Pamela Diaz
Was physician already notified: No
Reason for consult: inr
Consult Notification Routine
Specialty to Notify: Cardiology
Date consulting provider notified: 07/31/24
Time consulting provider notified: 07:26
Notified:: Provider
Comment: TT SARA
VTE Contraindication Routine
VTE Mechanical Device Contraindication: Medical Contraindication
Pharmocologic Contraindication: Medical Contraindication
Activity As Directed
Activity Level: As Tolerated
Bedside Glucose Monitoring As Directed
Frequency: AC&HS
Additional Instructions:: Change to q6h if pt on TPN, tube feeding or not eating
Vital Signs As Directed
Frequency: Per unit guidelines
Xopenex Reason for Use As Directed
Reason for ordering Xopenex instead of Albuterol: tachy
07/31/24 06:42
Complete Blood Count/With Diff IN AM
Comprehensive Metabolic Panel IN AM
Glycohemoglobin (HgbA1c) IN AM
Prothrombin Time IN AM
07/31/24 07:30
Insulin Aspart Corrective Low [Novolog Flexpen-Low Resistance] See Protocol SC AC
07/31/24 08:00
Calcium Polycarbophil [Fibercon] 625 mg PO DAILY
Docusate Sodium [Colace] 100 mg PO DAILY
FOLic ACID [Folvite] 0.8 mg PO DAILY
Ferrous Sulfate [Feosol] 325 mg PO DAILY
Lactulose [Duphalac/Chronulac] 20 grams PO BID
Metoprolol Xl [Toprol Xl] 25 mg PO BID
Multivitamin [Theragran] 1 tablet PO DAILY
Pantoprazole [Protonix] 40 mg PO BID
Potassium Chloride [KCl] 20 meq PO BID
Spironolactone [Aldactone] 25 mg PO DAILY
Torsemide [Demadex] 20 mg PO DAILY
Warfarin [Coumadin] 1.25 mg PO SuTuTh@0800
omega 5-ldq-bhj-fish oil [Fish Oil] See Dose Instructions PO DAILY
07/31/24 10:00
Cefepime HCl [Maxipime] 1,000 mg IV Q12H
07/31/24 Dinner
Cholesterol Lowering
At Your Request: Full Participation
Cholesterol Lowering: Sodium, 2 Gram
07/31/24 22:00
Allopurinol [Zyloprim] 100 mg PO HS
08/01/24 08:00
Metolazone [Zaroxolyn] 5 mg PO MoWeFr@0800
Warfarin [Coumadin] 2.5 mg PO MoWeFrSa@0800
08/02/24 11:00
DC Protocol for Telemetry ONCE
Abnormal Lab Results
07/30/24 07/30/24
20:38 22:43
RBC 3.84 L 10^6/uL
(4.20-5.40)
Hct 35.8 L %
(37.0-47.0)
MCH 31.3 H pg
(27.0-31.0)
RDW 19.8 H %
(11.5-14.5)
Plt Count 121 L 10^3/uL
(130-400)
MPV 12.2 H fL
(7.4-10.4)
Absolute Lymphs (auto) 0.8 L 10^3/uL
(1.2-3.4)
Absolute Monos (auto) 0.7 H 10^3/uL
(0.1-0.6)
Neutrophils % 78.3 H %
(42.2-75.2)
Lymphocytes % 10.4 L %
(20.5-51.1)
PT 23.6 H Sec
(11.4-14.6)
Sodium 127 L mmol/L
(135-145)
Chloride 95 L mmol/L
(98-107)
Carbon Dioxide 17 L mmol/L
(22-30)
BUN 56 H mg/dl
(7-17)
Creatinine 1.8 H mg/dL
(0.6-1.0)
Glucose 175 H mg/dl
(70-99)
Lactic Acid 2.5 H mmol/L
(0.7-2.0)
Total Bilirubin 3.7 H mg/dl
(0.2-1.3)
AST 76 H U/L
(14-36)
ALT 37 H U/L
(0-35)
Alkaline Phosphatase 286 H U/L
(38-126)
Ammonia 45 H umol/L
(9-30)
07/30/24 20:38
07/30/24 20:38
Vital Signs
Initial and Last Documented VS:
Initial Vital Signs
Temp Pulse Resp BP
102.3 F H 131 30 131/89
07/30/24 20:24 07/30/24 20:24 07/30/24 20:24 07/30/24 20:24
Last Documented Vital Signs
Temp Pulse Resp BP Pulse Ox
97.9 F 89 20 127/77 99
08/01/24 15:46 08/01/24 16:21 08/01/24 15:46 08/01/24 16:21 08/01/24 15:46
MDM/Problems Addressed
Differential Diagnosis Includes:
Pneumonia, urinary tract infection, viral illness, intracranial bleed, electrolyte abnormality
MDM/Problems Addressed:
Patient presents more lethargic than what the family believes is the patient's baseline. She is febrile here. No clear source for infection as viral swabs, chest x-ray and urine are unremarkable. Blood cultures were sent. Considered LP but the
patient is anticoagulated on Coumadin with an INR of 2.0. Head CT is unremarkable. Review of patient's records here indicate multiple complex medical problems. Will cover the patient with broad-spectrum antibiotics pending cultures. Evidently
patient was treated for hepatic encephalopathy during a hospitalization at an outside institution and was just discharged today. Ammonia sent but pending. Labs also indicate moderate hyponatremia with a sodium of 127. Patient has had hyponatremia
at a similar level in the past. I do not believe hypertonic saline is indicated at this level. Defer management of this to the hospitalist.
Patient was quite tachycardic on arrival and noted to be in atrial fibrillation with rapid ventricular response. This did improve with small bolus of IV fluid and antipyretics.
Chronic conditions affecting care: HTN, CAD, Cardiomyopathy and Kidney disease
*Radiology
Radiology exam reviewed: preliminary read by ED provider (No infiltrate noted on chest x-ray) and radiology read reviewed
*Pulse Oximetry
Patient hypoxic: no
*Critical Care Note
Total Time (30-74mins, 75-104mins- exclusive of procedures): 35 min
comment:
Critical care statement: A total of 35 minutes of critical care time was provided for this patient. This includes management of unstable vital signs, evaluation of the patient at bedside, reviewing the patient's pertinent medical records, discussion
with consultants, review of old EKGs and review of pertinent medical records. This time with separate from time utilized to perform the aforementioned documented procedures
ED Attending Note
-
Portions of this chart may have been created with voice recognition software.� Occasional wrong word or��sound alike� substitutions may have occurred due to the inherent limitations of voice recognition software.
Discharge Plan
Departure
Patient Disposition: Admit
Date of Disposition: 07/30/24
Time of Disposition: 22:51
Presentation/result/management discussed w/ accepting MD/DO: Hospitalist
Condition: Serious
Discharge Problem:
Altered mental status, Fever
Interventions
Interventions:
*Risk Screen - Suicide Last Done: 07/30/24 21:18
*General Assessment Last Done: 07/30/24 21:18
*Neglect/Abuse Screening Last Done: 07/30/24 21:18
*ED COVID-19 Vaccine History Last Done: 07/30/24 21:18
*Nursing Disposition Last Done: 07/31/24 01:51
ED- Cardiac Assessment Last Done: 07/30/24 21:16
ED- Neurological Assessment Last Done: 07/30/24 21:16
ED- Pulmonary Assessment Last Done: 07/30/24 21:16
Discharge Date and Time
Discharge Date/Time: 07/31/24 01:51
[2024-07-30] MEDS: TYLENOL/FEVERALL 650 MG RECTAL (20:53)
[2024-07-30 20:54] LABS: % Basophils 0.5 % (0-2); % Eosinophils 1.4 % (0-6); % Immature Granulocytes 0.3 % (0-0.5); % Lymphocytes 10.4 % (20.5-51.1); % Monocytes 9.1 % (1.7-9.3); % Neutrophils 78.3 % (42.2-75.2); Absolute Eosinophils 0.1 10^3/uL (0-0.7); Absolute Lymphocytes 0.8 10^3/uL (1.2-3.4); Absolute Monocytes 0.7 10^3/uL (0.1-0.6); Hematocrit 35.8 % (37.0-47.0); Mean Corp Hgb Conc. 33.5 g/dL (33.0-37.0); Mean Corpuscular Hgb 31.3 pg (27.0-31.0); Mean Corpuscular Volume 93.2 fL (81.0-99.0); Mean Platelet Volume 12.2 fL (7.4-10.4); Nucleated Red Blood Cells % 0.4 %; Platelet Count 121 10^3/uL (130-400); Red Blood Cell Count 3.84 10^6/uL (4.20-5.40); Red Cell Dist. Width 19.8 % (11.5-14.5); White Blood Cell Count 7.7 10^3/uL (4.8-10.8)
[2024-07-30] MEDS: LR 500 IV (20:58)
[2024-07-30 21:00] VITALS: BP 121/87
[2024-07-30 21:00] LABS: INR 2.05; PT 23.6 Sec (11.4-14.6)
[2024-07-30 21:01] LABS: ALT (SGPT) 37 U/L (0-35); AST (SGOT) 76 U/L (14-36); Albumin 4.1 g/dl (3.5-5.0); Alkaline Phosphatase 286 U/L (38-126); Blood Urea Nitrogen 56 mg/dl (7-17); Carbon Dioxide 17 mmol/L (22-30); Chloride 95 mmol/L (98-107); Estimated Creatinine Clearance 25 ml/min; Glucose 175 mg/dl (70-99); Sodium 127 mmol/L (135-145); Total Bilirubin 3.7 mg/dl (0.2-1.3); eGFR 28.13
[2024-07-30 21:15] LABS: Lactic Acid 2.5 mmol/L (0.7-2.0)
[2024-07-30 21:17] LABS: Urine Albumin Negative (Neg - Trace); Urine Bilirubin Negative (Negative); Urine Character Clear (Clear); Urine Color Yellow; Urine Glucose Negative (Negative); Urine Ketone Negative (Negative); Urine Leukocyte Negative (Negative); Urine Nitrite Negative (Negative); Urine Occult Blood Negative (Negative); Urine Specific Gravity 1.015 (<1.030); Urine Urobilinogen Negative (Neg - 1+)
[2024-07-30 21:28] LABS: COVID-19 Antigen Negative (Negative)
[2024-07-30 22:00] VITALS: BP 107/72
[2024-07-30] MEDS: MAXIPIME 2000 MG IV (22:36)
[2024-07-30 23:00] VITALS: BP 107/61
[2024-07-30 23:02] LABS: Ammonia 45 umol/L (9-30)
[2024-07-30] MEDS: VANCOCIN 530 MG IV (23:50)
--- NOTE | 2024-07-30 23:55 | HPS.HSE ---
Family Physician
-
Family Physician: Pastor Kolb
Chief Complaint
-
altered mental status
History of Present Illness
78-year-old female past medical history of hypertension, hyperlipidemia, severe status post TAVR in 2022, mechanical mitral valve replacement 2008, HFpEF, type 2 diabetes, V-fib arrest status post single chamber ICD, permanent atrial
fibrillation, CAD status post CABG, CKD 4, presenting for lethargy. On Sunday she was noted to be lethargic and somnolent. She was admitted at [facility] on Sunday. She had abdominal ultrasound, urinalysis and chest x-ray performed
which were unremarkable. She had ammonia level 55 and was thought to have hepatic encephalopathy. She was started on lactulose with improvement in mental status. She was discharged yesterday and since then she has been more somnolent again.
Patient does not have a history of alcohol use in the past. Does not have known cirrhosis although the possibility was apparently brought up by GI in the past.
No fevers or chills. She did have some vomiting. No headache, blurry vision, headache, neck pain. No cough or shortness of breath. No chest pain. No urinary symptoms. No diarrhea.
Patient denies any complaints. Patient seems sleepy but is arousable and answer simple question. He was noted by medics to be tachycardic to 130s.
Medical History
Past Medical History
Past Medical History: Reports Other (hypertension, hyperlipidemia, severe status post TAVR in 2022, mechanical mitral valve replacement 2008, HFpEF, type 2 diabetes, V-fib arrest status post single chamber ICD, permanent atrial fibrillation, CAD
status post CABG, CKD 4,)
Past Surgical History: Reports Other ( Cardiac (Pacer/Defib, Mitral valve replaced,. CABG X 4, TAVR), Cholecystectomy and Other (cataracts))
Social History
Tobacco: Non-smoker
Alcohol: None
Drug: None
Family History
Family History: Not pertinent
Allergies / Home Medications
Allergies reflects when Allergies were last updated in [facility].
Home Medications with original date entered in [facility]
Allergy/Medication List:
Allergies
Allergy/AdvReac Type Severity Reaction Status Date / Time
No Known Allergies Allergy Verified 07/30/24 20:23
Home Medications
levalbuterol HCl 0.63 mg/3 mL solution for nebulization 0.63 mg inhalation R Q8HPRN PRN sob/wheezing 11/22/22
docusate sodium 100 mg capsule (Colace) 100 mg PO DAILY Constipation 05/01/24
ferrous sulfate 325 mg (65 mg iron) tablet 325 mg PO DAILY Supplement 05/01/24
omega 0-bkm-hrc-fish oil 1,000 mg (120 mg-180 mg) capsule (Fish Oil) 1 cap PO DAILY Supplement 05/01/24
nitroglycerin 0.4 mg sublingual tablet 0.4 mg sublingual [id number] PRN chest pain 30 days #20 tabs 05/12/24
pantoprazole 40 mg tablet,delayed release 40 mg PO BID Gastrointestinal issue 30 days #60 tabs 05/12/24
repaglinide 0.5 mg tablet 0.5 mg PO AC Diabetes 30 days #30 tabs 05/12/24
sennosides 8.6 mg capsule (senna) 8.6 mg PO DAILYPRN PRN constipation 30 days #30 caps 05/12/24
therapeutic multivitamin 1 tab PO DAILY Supplement 30 days #30 tabs 05/12/24
allopurinol 100 mg tablet 100 mg PO HS Gout 06/10/24
calcium polycarbophil 625 mg tablet (Fiber-Lax) 625 mg PO DAILY 06/10/24
metoprolol succinate 25 mg capsule sprinkle, ext. release 24 hr 25 mg PO BID Blood Pressure 06/10/24
potassium chloride 10 mEq capsule,extended release 20 meq (2 x 10 mEq) PO BID Supplement 30 days #30 caps 06/21/24
spironolactone 25 mg tablet 25 mg PO DAILY Fluid retention/Swelling #0 tabs 06/21/24
zolpidem 5 mg tablet 5 mg PO HSPRN PRN insomnia #2 tabs 06/21/24
folic acid 0.8 mg capsule 0.8 mg PO DAILY 07/30/24
metolazone 5 mg tablet 5 mg PO MOWEFR Fluid retention/Swelling 07/30/24
torsemide 20 mg tablet 20 mg PO DAILY Fluid Retention/Swelling 07/30/24
warfarin 2.5 mg tablet 1.25 mg PO SUTUTH 07/30/24
warfarin 2.5 mg tablet 2.5 mg PO MOWEFRSA Blood clot prevention/tx 07/30/24
Review of Systems
-
History Source: Patient
A 12 point ROS was completed and negative except as noted: Yes
Constitutional: Reports No Symptoms
EENT: Reports No Symptoms
Respiratory: Reports No Symptoms
Cardiac: Reports No Symptoms
Abdomen/GI: Reports See HPI
: Reports No Symptoms
Musculoskeletal: Reports No Symptoms
Skin: Reports No Symptoms
Neurological: Reports No Symptoms
Endocrine: Reports No Symptoms
Hematologic/Lymphatic: Reports No Symptoms
Psych: Reports No Symptoms
Physical Exam
Vital Signs
Vital Signs
Temp Pulse Resp BP Pulse Ox
99.2 F 103 16 121/87 99
07/30/24 22:49 07/30/24 21:15 07/30/24 21:15 07/30/24 21:00 07/30/24 21:15
Physical Exam
General: Well Developed, Well Nourished and No Apparent Distress
HEENT: NormoCephalic, Moist mucous membranes and Atraumatic
Respiratory: Clear
Cardiac: S1/S2 and Regular Rhythm; No Murmur or Rub
GI: Soft, Non Tender, Non Distended and Normal Bowel Sounds; No Organomegaly
Rectal: Deferred by Provider
Musculoskeletal: No Clubbing, No Cyanosis and No Edema
Skin: No Rash
Neuro: Nonfocal/grossly intact
Laboratory Results
-
07/30/24 20:38
07/30/24 20:38
Laboratory Results
PT 23.6 Sec (11.4-14.6) H 07/30/24 20:38
INR 2.05 07/30/24 20:38
Lactic Acid 2.5 mmol/L (0.7-2.0) H 07/30/24 20:38
Total Bilirubin 3.7 mg/dl (0.2-1.3) H 07/30/24 20:38
AST 76 U/L (14-36) H 07/30/24 20:38
ALT 37 U/L (0-35) H 07/30/24 20:38
Alkaline Phosphatase 286 U/L (38-126) H 07/30/24 20:38
Data Reviewed
-
Lab Data: Labs Reviewed by me
Old Records: Reviewed
Impression/Plan
-
IMPRESSION:
PLAN:
# SIRS (fever, tachycardia)/metabolic encephalopathy unclear source could be viral URI versus less likely encephalitis
# Possible underlying cirrhosis possibly cardiac cirrhosis
-Temperature of 102
-Ammonia level 45 from 55 at [place]
-COVID and flu negative
-Urinalysis negative
-Chest x-ray shows no evidence of pneumonia
-CT head shows no acute abnormality
-LP considered however INR of 2.05 cannot be performed and already received Coumadin before arrival, doubt encephalitis or meningitis but consider LP
-IV fluids given, continue maintenance fluids gently
-Hold metolazone, spironolactone and torsemide
-Check blood cultures
-Vancomycin/cefepime empirically although do not see any source of infection
-Resume lactulose BID
-Patient abdominal ultrasound performed at [facility], report unavailable
-Check CT abdomen pelvis
#Chronic hyponatremia secondary to diuretics/HFpEF/potential cirrhosis
-Slightly worse at 127
-Continue to monitor with IV fluids
Chronic transaminitis secondary to presumable cirrhosis
-Stable
Severe aortic stenosis status post TAVR in 2022
Mechanical mitral valve replacement 2008
-Continue Coumadin
-INR 2.05, was 2.6 over the past 2 days while taking 2.5 mg of Coumadin
-Already received Coumadin tonight
-Check INR in the morning
-Managed by Dr. Mcgovern
-Cardiology consulted
V-fib arrest status post single-chamber ICD
Permanent atrial fibrillation
CAD status post CABG
Chronic HFpEF
-Hold metolazone, spironolactone and torsemide
CKD 4
-Renal function at baseline
Type 2 diabetes
-Hold repaglinide
-Insulin sliding scale
Hypertension
Hyperlipidemia
History of subdural hemorrhage
Anxiety/depression
Chronic anemia
-Resolved
Obesity
Gout
-continue allopurinol
DNR/DNI
DVT prophylaxis�Coumadin
Cardiac diet
[2024-07-31] VITALS (7 sets, daily range): BP systolic 101–137; BP diastolic 50–81; BMI 28.1; BMI 28.6; BMI 28.7
[2024-07-31] MEDS: FLUSH (NSS) 1 FLUSH IV (00:20)
[2024-07-31 02:18] LABS: Lactic Acid 2.2 mmol/L (0.7-2.0)
[2024-07-31] MEDS: NSS 1000 IV ×2 (02:37→17:42)
[2024-07-31 02:53] LABS: Glucose - Point of Care 152 mg/dl (70-99)
[2024-07-31] MEDS: XOPENEX 0.63 MG INHALANT SOLUTION INH ×3 (02:55→22:58)
--- NOTE | 2024-07-31 07:57 | PHA.VAN.IN ---
Assessment
- Assessment
Renal Function: Appears similar to baseline
Concomitant Antimicrobials: cefepime
Plan
- Plan
Initial / Loading Dose: 1500mg - 07/30 23:50
Maintenance Regimen: dosing by level - additional 750mg x1 today
Monitoring: random 08/01 0600
Pharmacokinetics Vancomycin I
- -
Patient Age: 78
Patient Sex: Female
Vancomycin Day #: 1
Indication: Gi / Intra-Abdominal
Requesting Provider: Dr. Valencia
Pertinent Antimicrobial Allergies:
NKDA
Height / Weight:
Height 5 ft 4 in
Actual Weight 75.75 kg
Pertinent Past Medical History: DM 2, CKD, mechanical MVR (2008)
- Vital Signs / Lab Results
Temp Pulse Resp BP Pulse Ox
97.6 F 103 20 110/50 96
07/31/24 03:05 07/31/24 03:05 07/31/24 03:05 07/31/24 03:05 07/31/24 03:33
Lab Results - Hematology
07/30/24
20:38
WBC 7.7
Lab Results - Chemistry
07/30/24
20:38
BUN 56 H
Creatinine 1.8 H
Estimated Creat Clear 25
Albumin 4.1
07/30/24 07/31/24
20:38 01:15
Lactic Acid 2.5 H 2.2 H
Lab Results - Urine
07/30/24
21:03
Urine Nitrite (Reflex) Negative
Leukocyte Esterase Rfl Negative
Microbiology Results
07/30/24 20:38 Influenza Types A & B (MARLEEN) - Final
Nasal Swab Negative for Influenza A & B, NAAT
Negative results must be combined with clinical observations
and patient history.
Nucleic Acid Amplification test (NAAT)performed on the
[employer] platform.
[2024-07-31 08:15] LABS: % Basophils 0.4 % (0-2); % Eosinophils 1.9 % (0-6); % Immature Granulocytes 0.6 % (0-0.5); % Lymphocytes 12.3 % (20.5-51.1); % Neutrophils 74.8 % (42.2-75.2); Absolute Eosinophils 0.1 10^3/uL (0-0.7); Absolute Lymphocytes 0.9 10^3/uL (1.2-3.4); Absolute Monocytes 0.7 10^3/uL (0.1-0.6); Absolute Neutrophils 5.2 10^3/uL (1.4-6.5); Hematocrit 31.6 % (37.0-47.0); Hemoglobin 10.4 g/dL (12.0-16.0); Mean Corp Hgb Conc. 32.9 g/dL (33.0-37.0); Mean Platelet Volume 11.9 fL (7.4-10.4); Nucleated Red Blood Cells % 0 %; Platelet Count 116 10^3/uL (130-400); Red Blood Cell Count 3.36 10^6/uL (4.20-5.40); Red Cell Dist. Width 19.4 % (11.5-14.5)
[2024-07-31 08:16] LABS: INR 2.18; PT 24.7 Sec (11.4-14.6)
[2024-07-31 08:23] LABS: Glucose - Point of Care 120 mg/dl (70-99)
[2024-07-31] MEDS: NOVOLOG FLEXPEN-LOW RESISTANCE SC ×3 (08:42→17:00)
[2024-07-31] MEDS: PROTONIX 40 MG PO ×2 (08:43→20:25)
[2024-07-31] MEDS: DESENEX/MITRAZOL/ZEASORB 1 APPLIC TOPICAL ×2 (08:43→20:25)
[2024-07-31] MEDS: ALDACTONE 25 MG PO (08:44)
[2024-07-31] MEDS: FEOSOL 325 MG PO (08:44)
[2024-07-31] MEDS: KCL 20 MEQ PO ×2 (08:44→20:23)
[2024-07-31] MEDS: TOPROL XL 25 MG PO ×2 (08:44→20:24)
[2024-07-31] MEDS: THERAGRAN 1 TABLET PO (08:45)
[2024-07-31] MEDS: COLACE 100 MG PO (08:45)
[2024-07-31] MEDS: DEMADEX 20 MG PO (08:45)
[2024-07-31] MEDS: FIBERCON 625 MG PO (08:48)
[2024-07-31] MEDS: DUPHALAC/CHRONULAC 20 GRAMS PO ×2 (08:48→20:23)
[2024-07-31] MEDS: FOLVITE 0.8 MG PO (08:49)
[2024-07-31 08:51] LABS: Glycohemoglobin (HgbA1c) 6.9 % (4.0-5.6)
[2024-07-31 08:52] LABS: ALT (SGPT) 29 U/L (0-35); AST (SGOT) 59 U/L (14-36); Albumin 3.2 g/dl (3.5-5.0); Alkaline Phosphatase 236 U/L (38-126); Blood Urea Nitrogen 53 mg/dl (7-17); Calcium 8.4 mg/dl (8.4-10.2); Carbon Dioxide 18 mmol/L (22-30); Chloride 100 mmol/L (98-107); Estimated Creatinine Clearance 28 ml/min; Glucose 111 mg/dl (70-99); Potassium 3.6 mmol/L (3.5-5.1); Sodium 130 mmol/L (135-145); Total Bilirubin 3.5 mg/dl (0.2-1.3); Total Protein 5.9 g/dl (6.3-8.2)
[2024-07-31] MEDS: COUMADIN 1.25 MG PO (10:15)
[2024-07-31] MEDS: MAXIPIME 1000 MG IV ×2 (10:19→20:25)
[2024-07-31] MEDS: STERILE WATER FOR INJECTION 10 ML IV ×2 (10:29→20:25)
[2024-07-31] MEDS: XIFAXAN 550 MG PO ×2 (11:00→20:23)
[2024-07-31] MEDS: VANCOCIN 150 IV (11:02)
[2024-07-31 12:15] LABS: Glucose - Point of Care 126 mg/dl (70-99)
--- NOTE | 2024-07-31 14:17 | CON.CAR ---
Addendum entered and electronically signed by Milton Mcgovern MD 07/31/24 18:55:
78 y/o female with TAVR 09/2022, mechanical MVR 2008, permanent AFIB on warfarin, VF arrest with single chamber ICD 2019, CAD s/p CABG 2008, chronic HFpEF, DM, HTN, HLD, CKD4, SDH after fall 2021 admitted with altered mental status, fever, concern
for hepatic encephalopathy. She denies chest pain. Exam with irregular rhythm, no murmurs, trace LE edema. Cr 1.6. Tele: rate controlled A fib.
She is undergoing infectious evaluation. She is on Abx. We will monitor INR in this setting. Goal 2.5-3.0.
We will also monitor her volume status.
Original Note:
Consultation
Consultation Request
Date/Time Consultation Requested: 07/31/24 021
Date/Time Consultation Performed: 07/31/24 1418
Requesting Provider: Dr. Valencia
Performing Provider: Alejandra LOVE for Dr. Mcgovern
Reason for Consultation: hx Mechanical MVR on warfarin
Medical History
-
Chief Complaint: lethargy and weakness
History of Present Illness:
78 y/o female (patient of Dr. Mcgovern) with TAVR 09/2022, mechanical MVR 2008, permanent AFIB on warfarin, VF arrest with single chamber ICD 2019, CAD s/p CABG 2008, HFpEF, DM, HTN, HLD, CKD4, SDH after fall 2021 who is here for evaluation of lethargy
and weakness. Briefly, she was hospitalized last month and diuresed then sent to [facility]. She has been home and was noted to have change in MS on Sunday and was taken to [facility] and was noted to have elevated ammonia levels and was
given lactulose. She was sent home and was only home briefly when family called EMS again because she was weak and lethargic. She was eent ot have a temp of 102.3. Ammonia still elevated and given lactulose. CXR and UA negative. Hyponatremia noted
and improving. There is wheezing to assessment and she is on O2 by HI. At the time of my assessment, she is in no distress but looks ill. We are consulted since INR is below goal- it is not clear what she was getting while hospitalized in [place]. She is getting IV antibiotics for infectious process.
Past Medical History
Past Medical History: Arrhythmias, CAD, CHF and Valvular Disease
Social History
Personal:
Living: With Family
Family History
Family History: Reviewed & Not Pertinent
Allergies / Home Medications
Allergy/AdvReac Type Severity Reaction Status Date / Time
No Known Allergies Allergy Verified 07/30/24 20:23
�Medication �Instructions �Recorded �Confirmed �Type
levalbuterol HCl 0.63 mg/3 mL 0.63 mg inhalation R Q8HPRN PRN 11/22/22 07/30/24 History
solution for nebulization sob/wheezing
docusate sodium 100 mg capsule 100 mg PO DAILY Constipation 05/01/24 07/30/24 History
(Colace)
ferrous sulfate 325 mg (65 mg 325 mg PO DAILY Supplement 05/01/24 07/30/24 History
iron) tablet
omega 6-htr-cia-fish oil 1,000 mg 1 cap PO DAILY Supplement 05/01/24 07/30/24 History
(120 mg-180 mg) capsule (Fish Oil)
nitroglycerin 0.4 mg sublingual 0.4 mg sublingual [id number] PRN 05/12/24 07/30/24 Rx
tablet chest pain 30 days #20 tabs
pantoprazole 40 mg tablet,delayed 40 mg PO BID Gastrointestinal 05/12/24 07/30/24 Rx
release issue 30 days #60 tabs
repaglinide 0.5 mg tablet 0.5 mg PO AC Diabetes 30 days #30 05/12/24 07/30/24 Rx
tabs
sennosides 8.6 mg capsule (senna) 8.6 mg PO DAILYPRN PRN 05/12/24 07/30/24 Rx
constipation 30 days #30 caps
therapeutic multivitamin 1 tab PO DAILY Supplement 30 days 05/12/24 07/30/24 Rx
#30 tabs
allopurinol 100 mg tablet 100 mg PO HS Gout 06/10/24 07/30/24 History
calcium polycarbophil 625 mg 625 mg PO DAILY 06/10/24 07/30/24 History
tablet (Fiber-Lax)
metoprolol succinate 25 mg capsule 25 mg PO BID Blood Pressure 06/10/24 07/30/24 History
sprinkle, ext. release 24 hr
potassium chloride 10 mEq 20 meq (2 x 10 mEq) PO BID 06/21/24 07/30/24 Rx
capsule,extended release Supplement 30 days #30 caps
spironolactone 25 mg tablet 25 mg PO DAILY Fluid 06/21/24 07/30/24 Rx
retention/Swelling #0 tabs
zolpidem 5 mg tablet 5 mg PO HSPRN PRN insomnia #2 tabs 06/21/24 07/30/24 Rx
folic acid 0.8 mg capsule 0.8 mg PO DAILY 07/30/24 07/30/24 History
metolazone 5 mg tablet 5 mg PO MOWEFR Fluid 07/30/24 07/30/24 History
retention/Swelling
torsemide 20 mg tablet 20 mg PO DAILY Fluid 07/30/24 07/30/24 History
Retention/Swelling
warfarin 2.5 mg tablet 1.25 mg PO SUTUTH 07/30/24 07/30/24 History
warfarin 2.5 mg tablet 2.5 mg PO MOWEFRSA Blood clot 07/30/24 07/30/24 History
prevention/tx
Review of Systems
-
History Source: Patient and Family
All other systems: Negative unless noted
Constitutional: Other (lethargy)
Neurological: Weakness
Physical Exam
Vital Signs
Temp Pulse Resp BP Pulse Ox
98.1 F 81 20 129/77 98
07/31/24 11:26 07/31/24 11:26 07/31/24 11:26 07/31/24 11:26 07/31/24 11:26
Lab Results
07/31/24 06:42
07/31/24 06:42
Physical Exam
General: No Apparent Distress
Respiratory: Wheezes and Other (on O2 by NC)
Cardiac: Irregular Rhythm and Other (mechanical heart sound)
Musculoskeletal: Edema (trace BLE edema)
Skin: Warm and Dry
Neuro: Awake, Alert and Oriented
Psych: Calm
Impression / Plan
-
Infectious process:
-patient with fever 102.3 here
-on IV abx
-CXR negative, UA negative, blood cx pending. CT suggestive of possible infectious colitis. ID is consulted.
Altered MS:
-patient with hyponatremia (improving), elevated ammonia (s/p lactulose), and infectious process (see above)
Mechanical MVR:
-on warfarin as OP
-INR goal 2.5-3.5 for [facility] MVR- caution in this patient due to hx GI bleed/SDH hx
-if INR still below goal tomorrow, can start heparin drip. However, with IV abx, will likely increase.
HFpEF, chronic:
-recent echo as noted in detail
-monitor volume status as she is treated for acute infectious illness
-weight is up from last admit, but edema improved
-on OP metolazone and torsemide, as well as spironolactone
Data Reviewed
-
EKG: Tracing Personally Visualized and interpreted (AFIB RVR IVCD)
Radiology: Report Reviewed by me (CXR: No evidence of pneumonia.)
CT Scan: Report Reviewed by me (CXR: No evidence of pneumonia.)
Medical Tests (Nuc Med, Echo etc): Report Reviewed by me (Echo 06/11/24: LVEF 50-55%. Enlarged right ventricle with moderately reduced systolic function. Evidence of RV volume overload with diastolic flattening of the septum. Severely dilated right
atrium. Normal functioning mechanical mitral valve. Normal functioning TAVR valve. Torrential TR.)
Labs: Labs Reviewed by me
--- NOTE | 2024-07-31 15:10 | W.PN.HOSP.TC ---
Today's Communication/Plan
-
Assessment / Plan
Assessment / Plan
NAD
Scleral Anicteric
MMM
No JVD
CTABL
RRR, S1/S2
Soft, NT, ND, BS+
Warm, Dry
AAOx3
Lethargic
Toxic metabolic encephalopathy likely secondary to hepatic encephalopathy and potentially underlying bacterial etiology as febrile therefore cannot rule out an infectious process follow-up on blood cultures started on IV antibiotics continue
lactulose with a goal bowel movement of 3-4, start rifaximin
-Initially concern for encephalitis/meningitis. However as she does not have any evidence of confusion and has active/passive range of motion of neck without pain, low clinical suspicion for this and and will hold off on consulting neurology/ID and
discontinue acyclovir/ampicillin to cover for viral/Listeria causes of meningitis/encephalitis
Sepsis was febrile and with tachycardia unclear as to source potentially SBP as there is small amount of ascites on CT unable to tap sufficiently for culture. Low clinical suspicion for REGISTRATION REPRESENTATIVE infection at this time. Will continue broad-spectrum
antibiotics follow-up on blood cultures. If positive may need to consult cardiology for JENI as she has mechanical valve and ICD Which could be potential sources
Cirrhosis unclear as to etiology continue Aldactone. Will consult GI
-Reviewed CT abdomen pelvis small amount of ascites. For now will cover for SBP as well on cefepime
Chronic hyponatremia
-Provide IV fluids, monitor, may need obtain urine studies if not improving
Mechanical mitral valve
Continue Coumadin
INR subtherapeutic, 2.1 today, daily INR, continue home Coumadin dosing
V-fib arrest s/p single-chamber ICD
Anticipated Discharge: > 48 hours
Subjective/Interval History
-
Date of Service: July 31, 2024
Seen and examined. Answering questions appropriately. Slow to answer that well. Knows that she is in the hospital knows she is at [facility] knows the year and month
Objective Data
-
Labs:
Laboratory Results
07/31/24
06:42
WBC 7.0
Hgb 10.4 L
Hct 31.6 L
Plt Count 116 L
PT 24.7 H
INR 2.18
Sodium 130 L
Potassium 3.6
Chloride 100
Carbon Dioxide 18 L
BUN 53 H
Creatinine 1.6 H
Glucose 111 H
Calcium 8.4
Total Bilirubin 3.5 H
AST 59 H
ALT 29
Alkaline Phosphatase 236 H
Vital Signs:
Vital Signs
Temp Pulse Resp BP Pulse Ox
98.1 F 81 20 129/77 98
07/31/24 11:26 07/31/24 11:26 07/31/24 11:26 07/31/24 11:26 07/31/24 11:26
I&O
07/30/24 07/31/24 08/01/24
06:59 06:59 06:59
Intake Total 0 / 0
Balance 0 / 0
--- NOTE | 2024-07-31 15:25 | CON.GI ---
Addendum entered and electronically signed by Marialuisa Nelson DO 07/31/24 17:10:
The patient was seen and examined by me independently in collaboration with the nurse practitioner.
Past medical history/social history/medications/allergies/family history reviewed.
Lab data and imaging data reviewed.
Briefly, Sonia Pastrana is an 78 y.o. female with extensive pmhx including HFpEF, DM, HTN, HLD, CKD4, SDH, TAVR, mechanical MVR, permanent afib on warfarin, Vfib arrest with single chamber ICD, CAD s/p CABG admitted with acute encephalopathy, found
to have elevated ammonia and imaging consistent with new diagnosis of cirrhosis.
She was hospitalized at [facility] over the weekend, found to have an elevated ammonia level and treated with lactulose, then discharged home without lactulose. Mental status worsened prompting them to return to the hospital. She was found to
be febrile with Tmax 102.3, otherwise, hemodynamically stable. Lactate 2.2. Her LFTs are elevated, alk phos 236, ALT 29, AST 59, Tbili 3.5, however, this is not new for her, they have been chronically elevated. She has also been thrombocytopenic for
some time.
CT A/P w/o IV contrast shows liver morphology and contour suggestive of cirrhosis with prominent varices in the LUQ c/w portal HTN. Additionally, there is suggestion of wall thickening and stranding of the pericolonic fat involving the superior
aspect of the descending colon and the splenic flexure suggestive of colitis, ischemic colitis is also possible as there is atherosclerotic disease with suggestion of changes of chronic dissection in the abdominal aorta. There is mild to moderate
subcutaneous edema, but no significant ascites.
A/P: New diagnosis of cirrhosis with acute encephalopathy
--Fever of 102.3, infectious workup in process, urine appears clean, no significant ascites to perform diagnostic paracentesis, CT scan with question of infectious vs. ischemic colitis
--f/u blood cultures, if no clear source identified would empiric treat for colitis
-Xifaxin BID and Lactulose started, titrate to 2-3 loose BMs daily
-Suspect congestive hepatopathy leading to cardiac cirrhosis, though, strange that she had a 'normal' liver on US on Aug 2023
Regardless of the etiology of her liver disease, will workup for causes of encephalopathy and treat her accordingly. Given her age and comorbidites, I would not necessarily recommend HCC and variceal screening.
Original Note:
Consultation
-
Date/Time Consultation Requested: 07/31/241519
Date/Time Consultation Performed: 07/31/241524
Requesting Provider: Mario Richter MD
Performing Provider: KATE Fernandez, Nurys Nelson DO
Reason for Consultation: hepatic encephalopathy
Medical History
Chief Complaint / HPI
Chief Complaint: change in mental status
History of Present Illness:
Pt is an 78yo with hx multiple medical problems including Afib, mech MVR on coumadin, out of hospital arrest with ICD, prior CABG, HTN, NIDDM, CKD, prior GI bleed- post polypectomy bleeding, colon polyps with EMR in 2021 of large TA TC polyp.
She was seen by GI in April with rectal bleeding. She completed repeat colonoscopy 05/[address] Jaramillo with fair prep 2 diminutive polyps in sigmoid and transverse colon, Internal hemorrhoid and tattoo seen in descending colon bx with HP polyp.
Pt returned in May with recurrent rectal bleeding and June with decompensated heart failure. Pt was admitted again recently at [facility] for change in mental status. She was initially taken to [facility] with as concern for
stroke but that was ruled out per family and ammonia with elevated with start of Lactulose. She was discharged off lactulose and now presents 07/30 with weakness and lethargy with tachycardia shortly after return home. On admission she is noted
with fever and labs with hbg 10.4 with platelets 116, Na 130, BUN 53, creat 1.6, lactate 2.2, bili 3.5, AST 59, alt 29, alk phos 236 and ammonia of 45. Imaging with CT with noted limitation without contrast, b/l pleural effusion, atelectasias,
colitis, liver with changes of cirrhosis with prominent varices left upper quadrant and small amount of ascites in liver.
In review with patient and family no known hx liver disease or cirrhosis in past. She was given lactulose on admission with improved mental status after admission. No hx ETOH use or known hx hepatitis. She denies odynophagia, dysphagia,
GERD, nausea, vomiting, abdominal pain, diarrhea, constipation, or rectal bleeding but admits that stool chronically dark with iron use. Hx EGD 2020 with Jana[facility] Hendrickson with - Mucosal nodule found in the esophagus. HH, erythema in antrum and normal
duodenum.
.
Past Medical History
Past Medical History: Arrhythmias (Vfib arrest, afib on coumadin), CAD, CHF, HTN, Hypercholesterolemia, NIDDM, Renal Failure (CKD), Valvular Disease ( severe ) and Other (prior GI bleeding and post polypectomy bleeding, colon polyps with prior EMR
of large TC polyp )
Past Surgical History: Cardiac (TAVR 2022, MVR 2008, ICD, CABG, MAZE procedure )
Social History
Tobacco: Non-Smoker
Alcohol: None
Drug: None
Personal:
Living: With Family
Employment: Retired
Family History
Family History: Other (no family hx liver problem or cirrhosis )
Allergies / Home Medications
Allergy/AdvReac Type Severity Reaction Status Date / Time
No Known Allergies Allergy Verified 07/30/24 20:23
�Medication �Instructions �Recorded
levalbuterol HCl 0.63 mg/3 mL 0.63 mg inhalation R Q8HPRN PRN 11/22/22
solution for nebulization sob/wheezing
docusate sodium 100 mg capsule 100 mg PO DAILY Constipation 05/01/24
(Colace)
ferrous sulfate 325 mg (65 mg 325 mg PO DAILY Supplement 05/01/24
iron) tablet
omega 9-kyn-cne-fish oil 1,000 mg 1 cap PO DAILY Supplement 05/01/24
(120 mg-180 mg) capsule (Fish Oil)
nitroglycerin 0.4 mg sublingual 0.4 mg sublingual [id number] PRN 05/12/24
tablet chest pain 30 days #20 tabs
pantoprazole 40 mg tablet,delayed 40 mg PO BID Gastrointestinal 05/12/24
release issue 30 days #60 tabs
repaglinide 0.5 mg tablet 0.5 mg PO AC Diabetes 30 days #30 05/12/24
tabs
sennosides 8.6 mg capsule (senna) 8.6 mg PO DAILYPRN PRN 05/12/24
constipation 30 days #30 caps
therapeutic multivitamin 1 tab PO DAILY Supplement 30 days 05/12/24
#30 tabs
allopurinol 100 mg tablet 100 mg PO HS Gout 06/10/24
calcium polycarbophil 625 mg 625 mg PO DAILY 06/10/24
tablet (Fiber-Lax)
metoprolol succinate 25 mg capsule 25 mg PO BID Blood Pressure 06/10/24
sprinkle, ext. release 24 hr
potassium chloride 10 mEq 20 meq (2 x 10 mEq) PO BID 06/21/24
capsule,extended release Supplement 30 days #30 caps
spironolactone 25 mg tablet 25 mg PO DAILY Fluid 06/21/24
retention/Swelling #0 tabs
zolpidem 5 mg tablet 5 mg PO HSPRN PRN insomnia #2 tabs 06/21/24
folic acid 0.8 mg capsule 0.8 mg PO DAILY 07/30/24
metolazone 5 mg tablet 5 mg PO MOWEFR Fluid 07/30/24
retention/Swelling
torsemide 20 mg tablet 20 mg PO DAILY Fluid 07/30/24
Retention/Swelling
warfarin 2.5 mg tablet 1.25 mg PO SUTUTH 07/30/24
warfarin 2.5 mg tablet 2.5 mg PO MOWEFRSA Blood clot 07/30/24
prevention/tx
Review of Systems
-
History Source: Patient and Family
Constitutional: Reports Fever and Fatigue
EENT: Reports No Symptoms
Respiratory: Reports No Symptoms
Cardiac: Reports No Symptoms
Abdomen/GI: Reports Diarrhea (with lactulose use )
: Reports No Symptoms
Musculoskeletal: Reports No Symptoms
Skin: Reports No Symptoms
Neurological: Reports Weakness
Endocrine: Reports No Symptoms
Hematologic/Lymphatic: Reports No Symptoms
Vital Signs
Temp Pulse Resp BP Pulse Ox
98.1 F 81 20 129/77 98
07/31/24 11:26 07/31/24 11:26 07/31/24 11:26 07/31/24 11:26 07/31/24 11:26
Physical Exam
Exam
General: Well Developed, Well Nourished and No Apparent Distress
HEENT: Normocephalic and Anicteric
Respiratory: Clear
Cardiac: Regular Rhythm and Peripheral Edema
GI: Soft, Non Tender and Non Distended
Musculoskeletal: No Clubbing and No Cyanosis
Skin: Warm and Dry
Neuro: Other (opens eyes and answer some questions but drifts off in conversation )
Psych: Calm
Results
WBC 7.0 10^3/uL (4.8-10.8) 07/31/24 06:42
Hgb 10.4 g/dL (12.0-16.0) L 07/31/24 06:42
Hct 31.6 % (37.0-47.0) L 07/31/24 06:42
MCV 94.0 fL (81.0-99.0) 07/31/24 06:42
Plt Count 116 10^3/uL (130-400) L 07/31/24 06:42
Absolute Neuts (auto) 5.2 10^3/uL (1.4-6.5) 07/31/24 06:42
PT 24.7 Sec (11.4-14.6) H 07/31/24 06:42
INR 2.18 07/31/24 06:42
Sodium 130 mmol/L (135-145) L 07/31/24 06:42
Potassium 3.6 mmol/L (3.5-5.1) 07/31/24 06:42
Chloride 100 mmol/L (98-107) 07/31/24 06:42
Carbon Dioxide 18 mmol/L (22-30) L 07/31/24 06:42
BUN 53 mg/dl (7-17) H 07/31/24 06:42
Creatinine 1.6 mg/dL (0.6-1.0) H 07/31/24 06:42
Calcium 8.4 mg/dl (8.4-10.2) 07/31/24 06:42
Total Bilirubin 3.5 mg/dl (0.2-1.3) H 07/31/24 06:42
AST 59 U/L (14-36) H 07/31/24 06:42
ALT 29 U/L (0-35) 07/31/24 06:42
Alkaline Phosphatase 236 U/L (38-126) H 07/31/24 06:42
Diagnostic Image Results:
07/31 CT Abd/pelvis Wo Iv Cont
IMPRESSION: Examination limited by the lack of oral or intravenous contrast.
Minimal right pleural effusion with small left pleural effusion. Dependent atelectasis in the posterior lower lungs.
Suggestion of wall thickening and stranding of the pericolonic fat involving the superior aspect of the descending colon and the splenic flexure. This finding would be suggestive of colitis. Infectious colitis would be the leading consideration.
Ischemic colitis could also be possible, as there is atherosclerotic disease with suggestion of changes of chronic dissection in the abdominal aorta
Cystic focus within the hilum of the left kidney, which could either represent a dilated renal pelvis from mild UPJ obstruction, versus a parapelvic simple renal cysts.
Liver morphology and contour suggestive of cirrhosis. Prominent varices within the left upper quadrant. Small amount of ascites adjacent to the liver, greatest posteriorly.
Mild to moderate subcutaneous edema.
Prior GI Procedures:
Colonoscopy: 05/[address] Jaramillo with fair prep 2 diminutive polyps in sigmoid and transverse colon, Internal hemorrhoid and tattoo seen in descending colon bx with HP polyp
10/2021 colonoscopy -Novikov One 5 mm polyp in the sigmoid colon, removed with a
cold snare. Resected and retrieved. TA
- One 10 mm polyp in the descending colon, removed
using injection-lift and a hot snare. Resected and
retrieved. Clip was placed. SS lesion
- One 5 mm polyp in the transverse colon, removed
using injection-lift and a hot snare. Resected and
retrieved. hyperplastic
- One 20 mm polyp in the transverse colon, s/p EMR.
Clips (MR conditional) were placed. TA
02/2021 EGD [facility] - Mucosal nodule found in the esophagus. Biopsied.
- 2 cm hiatal hernia.
- Erythematous mucosa in the antrum. Biopsied.
- Normal examined duodenum. Biopsied.
neg celiac, H pylori, metaplasia
Assessment / Plan
-
Pt is an 78yo with hx multiple medical problems including Afib, mech MVR on Coumadin, out of hospital arrest with ICD, prior CABG, HTN, NIDDM, CKD, prior GI bleed- post polypectomy bleeding, colon polyps with EMR in 2021 of large TA TC polyp.
She was seen by GI in April with rectal bleeding. She completed repeat colonoscopy 05/[address] Jaramillo with fair prep 2 diminutive polyps in sigmoid and transverse colon, Internal hemorrhoid and tattoo seen in descending colon bx with HP polyp.
Pt returned in May with recurrent rectal bleeding and June with decompensated heart failure. Pt was admitted again recently at [facility] for change in mental status. She was initially taken to [facility] with as concern for
stroke but that was ruled out per family and ammonia with elevated with start of Lactulose. She was discharged off lactulose and now presents 07/30 with weakness and lethargy with tachycardia shortly after return home. On admission she is noted
with fever and labs with hbg 10.4 with platelets 116, Na 130, BUN 53, creat 1.6, lactate 2.2, bili 3.5, AST 59, alt 29, alk phos 236 and ammonia of 45. Imaging with CT with noted limitation without contrast, b/l pleural effusion, atelectasias,
colitis, liver with changes of cirrhosis with prominent varices left upper quadrant and small amount of ascites in liver.
In review with patient and family no known hx liver disease or cirrhosis in past. She was given lactulose on admission with improved mental status after admission. No hx ETOH use or known hx hepatitis. She denies odynophagia, dysphagia,
GERD, nausea, vomiting, abdominal pain, diarrhea, constipation, or rectal bleeding but admits that stool chronically dark with iron use. Hx EGD 2020 with Janae Hendrickson with - Mucosal nodule found in the esophagus. HH, erythema in antrum and normal
duodenum.
-new onset hepatic encephalopathy with elevated ammonia level on admission
-newly noted cirrhosis in CT- hepatic vs cardiac related
-thrombocytopenia
-fever/tachycardia
-hx lower GI [id number]
-anemia
-hyponatremia
-hx mech MVR on Coumadin prior to admission
-recent admission to [place] with elevated ammonia and lactulose use
other med problems:
-hx post polypectomy bleeding/large TA polyp with prior EMR
-CKD
-afib
-NIDDM
-CHF
-hx CABG
-Out of hospital arrest - ICD in place
-HTN
PLAN:
etiology of elevated ammonia and change in mental status with concern for hepatic encephalopathy with new cirrhosis
cirrhosis may be primary liver related with thrombocytopenia, mild hypoalbuminemia (INR elevated but not helpful with coumadin use)-- no prior hx ETOH use, possible MASH vs discussed cardiac cirrhosis with advanced heart disease vs other
encephalopathy may have been triggered by infection with fever, no noted signs of GI bleeding, hx CKD with stable creat, vs other
agree with lactulose and Xifaxan BID -- monitor stool output for adjustment in dose
very minimal ascites per CT-- if increased ascites develops consider para to calculate SAAG and rule out SBP with fever
await blood cx , UA neg, CXR neg
add hepatitis panel
appreciate cards input discussed with Dr. Shaniqua cont diuretics per cardiology
cont PPI BID
cont abx - for ID evaluation
updated family at bedside
-
-
Thank you for consultation and allowing me to participate in the patient's care. Please call the supervisor scrap preparation GI physician during the after hours with any questions or concerns.
[2024-07-31 16:56] LABS: Glucose - Point of Care 113 mg/dl (70-99)
[2024-07-31] MEDS: ZYLOPRIM 100 MG PO (20:25)
[2024-07-31 21:44] LABS: Glucose - Point of Care 125 mg/dl (70-99)
[2024-07-31] MEDS: CARDIZEM 5 MG IV (22:50)
--- NOTE | 2024-07-31 22:50 | W.PN.UPDATE ---
Update Note
Progress Note Update
RN notified [facility]. Patient HR 120's-140's Afib, states Shortness of breath. Patient seen and evaluated. Patient noted to be in distress, abdominal breathing with audible wheeze and occasional dry cough. Stated Shortness of breath, denies any chest
pain, dizziness or palpitations. patient received 25mg PO.
124/94, 120's, 28, 100% 2l. lungs b/l wheezes. bladder distended. Denies any pain.
labs, chest Xray, bladder scan, Xopenex tx, Cardizem 5mg IVx1. Morphine 1mg IVx1
Bladder scan>500cc, straight cathx1
labs noted, chest xray read by Hospitalist. Will continue fluids.
HR remains 120's, occasionally in 130's irregular BP 128/74, EKG Afib RVR 124 Will start Cardizem IV infusion
--- NOTE | 2024-07-31 23:00 | PTCARENOTE ---
Addendum entered by Mena Jacobo 08/01/24 00:59:
CARDIAC MONITOR TECHNICIAN also ordered portable CXR on pt- awaiting results.
Original Note:
pt HR sustaining 130s-140s on tele monitor and visible work of breathing with audible wheezing. all other VSS at this time. pt with no complaints of pain, trouble breathing, or discomfort. CARDIAC MONITOR TECHNICIAN notified- stat orders for 5mg IV cardizem, 1mg IV
morphine, xopenex 0.63mg inhalant, and stat mag, BMP, CBC, and lactic. CARDIAC MONITOR TECHNICIAN order to bladder scan pt- pt retaining 550 cc urine, straight cath for 600 cc yellow urine. will continue to monitor patient closely. plan of care ongoing.
[2024-08-01] VITALS (7 sets, daily range): BP systolic 108–128; BP diastolic 56–87; BMI 28.9
[2024-08-01 00:05] LABS: Hematocrit 36.4 % (37.0-47.0); Hemoglobin 12.4 g/dL (12.0-16.0); Mean Corp Hgb Conc. 34.1 g/dL (33.0-37.0); Mean Corpuscular Hgb 31.6 pg (27.0-31.0); Mean Corpuscular Volume 92.9 fL (81.0-99.0); Mean Platelet Volume 10.6 fL (7.4-10.4); Platelet Count 120 10^3/uL (130-400); Red Blood Cell Count 3.92 10^6/uL (4.20-5.40); Red Cell Dist. Width 19.9 % (11.5-14.5); White Blood Cell Count 7.4 10^3/uL (4.8-10.8)
[2024-08-01 00:06] LABS: Blood Urea Nitrogen 52 mg/dl (7-17); Calcium 9.3 mg/dl (8.4-10.2); Carbon Dioxide 16 mmol/L (22-30); Chloride 99 mmol/L (98-107); Estimated Creatinine Clearance 26 ml/min; Glucose 119 mg/dl (70-99); Potassium 4.6 mmol/L (3.5-5.1); Sodium 129 mmol/L (135-145); eGFR 30.13
[2024-08-01 00:07] LABS: Lactic Acid 2.3 mmol/L (0.7-2.0)
[2024-08-01] MEDS: MORPHINE SULFATE 1 MG IV (00:08)
[2024-08-01] MEDS: CARDIZEM 125 IV (01:54)
[2024-08-01 07:44] LABS: Hematocrit 31.4 % (37.0-47.0); Hemoglobin 10.5 g/dL (12.0-16.0); Mean Corp Hgb Conc. 33.4 g/dL (33.0-37.0); Mean Corpuscular Hgb 31.4 pg (27.0-31.0); Mean Platelet Volume 10.4 fL (7.4-10.4); Platelet Count 115 10^3/uL (130-400); Red Blood Cell Count 3.34 10^6/uL (4.20-5.40); Red Cell Dist. Width 20.1 % (11.5-14.5); White Blood Cell Count 11.3 10^3/uL (4.8-10.8)
[2024-08-01 07:57] LABS: Vancomycin Random 20.1 ug/ml
[2024-08-01 08:00] LABS: INR 2.68; PT 28.5 Sec (11.4-14.6)
[2024-08-01 08:32] LABS: ALT (SGPT) 29 U/L (0-35); AST (SGOT) 57 U/L (14-36); Albumin 3.3 g/dl (3.5-5.0); Alkaline Phosphatase 259 U/L (38-126); Blood Urea Nitrogen 51 mg/dl (7-17); Calcium 8.9 mg/dl (8.4-10.2); Carbon Dioxide 16 mmol/L (22-30); Chloride 100 mmol/L (98-107); Estimated Creatinine Clearance 25 ml/min; Glucose 95 mg/dl (70-99); Potassium 4.7 mmol/L (3.5-5.1); Sodium 129 mmol/L (135-145); Total Bilirubin 4.1 mg/dl (0.2-1.3); eGFR 28.13
[2024-08-01 08:46] LABS: Glucose - Point of Care 89 mg/dl (70-99)
[2024-08-01 09:07] LABS: Hepatitis B Surface Antigen Negative (Negative)
[2024-08-01] MEDS: NSS 1000 IV (09:17)
[2024-08-01] MEDS: FIBERCON 625 MG PO (09:18)
[2024-08-01] MEDS: DUPHALAC/CHRONULAC 20 GRAMS PO ×2 (09:18→21:04)
[2024-08-01] MEDS: THERAGRAN 1 TABLET PO (09:18)
[2024-08-01] MEDS: NOVOLOG FLEXPEN-LOW RESISTANCE SC ×3 (09:18→17:34)
[2024-08-01] MEDS: FEOSOL 325 MG PO (09:18)
[2024-08-01] MEDS: ALDACTONE 25 MG PO (09:19)
[2024-08-01] MEDS: KCL 20 MEQ PO ×2 (09:19→21:04)
[2024-08-01] MEDS: XIFAXAN 550 MG PO ×2 (09:19→21:07)
[2024-08-01] MEDS: COLACE 100 MG PO (09:19)
[2024-08-01] MEDS: PROTONIX 40 MG PO ×2 (09:19→21:05)
[2024-08-01] MEDS: DEMADEX 20 MG PO (09:19)
[2024-08-01] MEDS: FOLVITE 0.8 MG PO (09:20)
[2024-08-01] MEDS: TOPROL XL 25 MG PO (09:20)
[2024-08-01] MEDS: ZAROXOLYN 5 MG PO (09:21)
[2024-08-01] MEDS: STERILE WATER FOR INJECTION 10 ML IV ×2 (09:22→21:08)
[2024-08-01] MEDS: MAXIPIME 1000 MG IV ×2 (09:22→21:08)
[2024-08-01] MEDS: FLUSH (NSS) 1 FLUSH IV ×2 (09:22→16:22)
[2024-08-01 09:25] LABS: Hepatitis A Antibody, Total Negative (Negative); Hepatitis B Core Ab, Total Negative (Negative); Hepatitis C Antibody Negative (Negative)
[2024-08-01 09:31] LABS: Hepatitis A IgM Antibody Negative (Negative)
[2024-08-01] MEDS: DESENEX/MITRAZOL/ZEASORB 1 APPLIC TOPICAL ×2 (09:35→21:07)
--- NOTE | 2024-08-01 09:41 | PHA.VAN.FU ---
Vancomycin Assessment / Plan
- Assessment
Renal Function: Stable
WBC's are: Trending Up
In the past 24 hrs, patient has been: Afebrile
Concomitant Antimicrobials: cefepime
- Assessment - Therapeutic Drug Monitoring
Random Level: 20.1 - drawn ~20.5H after previous dose of 750mg
- Dosing Plan
Dosing by Level: Hold off on dosing today
- Monitoring Plan
Random Level: 08/02 0600
MRSA Screen: Ordered per protocol
- Follow Up
Pharmacy will continue to follow.
Vancomycin Follow UP
- -
Patient Age: 78
Patient Sex: Female
Vancomycin Day #: 2
Indication: Gi / Intra-Abdominal
Requesting Provider: Dr. Valencia
Pertinent Antimicrobial Allergies:
NKDA
Height / Weight:
Height 5 ft 4 in
Actual Weight 76.294 kg
Pertinent Past Medical History: DM 2, CKD, mechanical MVR (2008)
- Vital Signs / Lab Results
Temp Pulse Resp BP Pulse Ox
97.9 F 99 22 118/65 100
08/01/24 08:34 08/01/24 09:21 08/01/24 08:34 08/01/24 09:21 08/01/24 09:13
Lab Results - Hematology
07/30/24 07/31/24 07/31/24
20:38 06:42 23:37
WBC 7.7 7.0 7.4
08/01/24
07:29
WBC 11.3 H
Lab Results - Chemistry
07/30/24 07/31/24 07/31/24
20:38 06:42 23:37
BUN 56 H 53 H 52 H
Creatinine 1.8 H 1.6 H 1.7 H
Estimated Creat Clear 28 26
Albumin 4.1 3.2 L
08/01/24
07:29
BUN 51 H
Creatinine 1.8 H
Estimated Creat Clear
Albumin 3.3 L
07/30/24 07/31/24 07/31/24
20:38 01: 23:48
Lactic Acid 2.5 H 2.2 H 2.3 H
Microbiology Results
07/30/24 20:38 Blood Culture - Preliminary
Blood/Venous No Growth in 24 hours- Final report to follow
07/30/24 20:38 Blood Culture - Preliminary
Blood/Venous No Growth in 24 hours- Final report to follow
07/30/24 20:38 Influenza Types A & B (MARLEEN) - Final
Nasal Swab Negative for Influenza A & B, NAAT
Negative results must be combined with clinical observations
and patient history.
Nucleic Acid Amplification test (NAAT)performed on the
[employer] platform.
Therapeutic Drug Monitoring
Random Vancomycin 20.1 ug/ml 08/01/24 07:29
--- NOTE | 2024-08-01 10:19 | W.PN.GI.CBS2 ---
Today's Communication / Plan
-
Continue lactulose, xifaxan
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
Hep B/C negative
Continue diuretics per Cardiology
Infx w/u negative so far
Assessment / Plan
-
Pt is an 78yo with hx multiple medical problems including Afib, mech MVR on Coumadin, out of hospital arrest with ICD, prior CABG, HTN, NIDDM, CKD, prior GI bleed- post polypectomy bleeding, colon polyps with EMR in 2021 of large TA TC polyp.
She was seen by GI in April with rectal bleeding. She completed repeat colonoscopy 05/[address] Jaramillo with fair prep 2 diminutive polyps in sigmoid and transverse colon, Internal hemorrhoid and tattoo seen in descending colon bx with HP polyp.
Pt returned in May with recurrent rectal bleeding and June with decompensated heart failure. Pt was admitted again recently at [facility] for change in mental status. She was initially taken to [facility] with as concern for
stroke but that was ruled out per family and ammonia with elevated with start of Lactulose. She was discharged off lactulose and now presents 07/30 with weakness and lethargy with tachycardia shortly after return home. On admission she is noted
with fever and labs with hbg 10.4 with platelets 116, Na 130, BUN 53, creat 1.6, lactate 2.2, bili 3.5, AST 59, alt 29, alk phos 236 and ammonia of 45. Imaging with CT with noted limitation without contrast, b/l pleural effusion, atelectasias,
colitis, liver with changes of cirrhosis with prominent varices left upper quadrant and small amount of ascites in liver.
In review with patient and family no known hx liver disease or cirrhosis in past. She was given lactulose on admission with improved mental status after admission. No hx ETOH use or known hx hepatitis. She denies odynophagia, dysphagia,
GERD, nausea, vomiting, abdominal pain, diarrhea, constipation, or rectal bleeding but admits that stool chronically dark with iron use. Hx EGD 2020 with Janae Hendrickson with - Mucosal nodule found in the esophagus. HH, erythema in antrum and normal
duodenum.
Impression:
-new onset hepatic encephalopathy with elevated ammonia level on admission
-newly noted cirrhosis on CT- probably cardiac related
-thrombocytopenia
-fever/tachycardia
-hx lower GI [id number]
-anemia
-hyponatremia
-hx mech MVR on Coumadin prior to admission
-recent admission to [place] with elevated ammonia and lactulose use
other med problems:
-hx post polypectomy bleeding/large TA polyp with prior EMR
-CKD
-afib
-NIDDM
-CHF
-hx CABG
-Out of hospital arrest - ICD in place
-HTN
Subjective
Subjective
Date of Service: August 01, 2024
No complaints. Eating breakfast. Elevated HR overnight, started cardizem gtt
Objective
Data Reviewed
Laboratory Data:
Laboratory Results
08/01/24 07:29
08/01/24 07:29
Laboratory Results
PT 28.5 Sec (11.4-14.6) H 08/01/24 07:29
INR 2.68 08/01/24 07:29
Magnesium 2.0 mg/dl (1.6-2.3) 07/31/24 23:37
Total Bilirubin 4.1 mg/dl (0.2-1.3) H 08/01/24 07:29
AST 57 U/L (14-36) H 08/01/24 07:29
ALT 29 U/L (0-35) 08/01/24 07:29
Alkaline Phosphatase 259 U/L (38-126) H 08/01/24 07:29
Vital Signs and I&O:
Vital Signs
Temp Pulse Resp BP Pulse Ox
97.9 F 99 22 118/65 100
08/01/24 08:34 08/01/24 09:21 08/01/24 08:34 08/01/24 09:21 08/01/24 09:13
I&O
07/31/24 08/01/24 08/02/24
06:59 06:59 06:59
Intake Total 0 / 0 720 / 720
Output Total 600 / 600
Balance 0 / 0 120 / 120
Physical Exam
Physical Exam
GI: Soft, Non Distended and Non Tender
Neuro: Other (AAO x 3, but lethargic, slow with answers.)
[2024-08-01 11:19] LABS: Hepatitis B Core Ab, IgM Negative (Negative)
[2024-08-01 11:32] LABS: Hepatitis B Surface Antibody Negative
[2024-08-01 12:20] LABS: Glucose - Point of Care 139 mg/dl (70-99)
--- NOTE | 2024-08-01 13:13 | W.PN.CD ---
Today's Communication / Plan
-
lasix 80mg IV bid
stop diltiazem drip
increase Toprol XL to 50mg bid
Impression / Plan
-
Altered MS: likely multifactorial
-patient with hyponatremia (improving), elevated ammonia (s/p lactulose), and fever
-primary team, GI consult managing
Acute on chronic HFPEF
-high risk with CKD4
-will aim for 73kg
-lasix 80mg IV bid, with close monitoring of lab and tele
Permanent A fib
-rates trended up
-stop diltiazem drip
-increase Toprol XL to 50mg bid
-warfarin for OAC given mechanical MVR
Mechanical MVR:
-continue warfarin
-INR goal 2.5-3.0 (narrower goal due to bleeding in past)
Physical Exam
Vital Signs/Labs
Vital Signs
Temp Pulse Resp BP Pulse Ox
97.8 F 65 20 114/56 95
08/01/24 11:37 08/01/24 11:37 08/01/24 11:37 08/01/24 11:37 08/01/24 11:37
07/31/24 08/01/24 08/02/24
06:59 06:59 06:59
Actual Weight 75.75 kg 76.294 kg
08/01/24 07:29
08/01/24 07:29
PT 28.5 Sec (11.4-14.6) H 08/01/24 07:29
INR 2.68 08/01/24 07:29
Magnesium 2.0 mg/dl (1.6-2.3) 07/31/24 23:37
Physical Exam
Constitutional: No acute distress
EENT: Moist mucous membranes
Cardiovascular: Rhythm/rate is irregular, Pedal edema present, JVD present and Systolic murmur present
Respiratory: Respiratory effort normal and Lungs clear to auscul.
Neuro/Psych: Oriented
Data Reviewed
-
Date of Service: August 01, 2024
EKG: Other (Tele: Afib 90s)
Labs: Labs Reviewed by me
--- NOTE | 2024-08-01 13:28 | W.PN.HOSP.TC ---
Today's Communication/Plan
-
Assessment / Plan
Assessment / Plan
NAD
Scleral icterus
MMM
JVD
Right upper chest wall with notes/findings flat ecchymosis
Left upper chest wall with ICD
CTABL
IRR, S1/S2
Soft, NT, ND, BS+
Warm, Dry, bilateral lower extremities with chronic venous stasis change
AA
Lethargic
Toxic metabolic encephalopathy likely secondary to hepatic encephalopathy and potentially underlying bacterial etiology as febrile therefore cannot rule out an infectious process follow-up on blood cultures started on IV antibiotics continue
lactulose with a goal bowel movement of 3-4, start rifaximin
-Initially concern for encephalitis/meningitis. However as she does not have any evidence of confusion and has active/passive range of motion of neck without pain, low clinical suspicion for this and and will hold off on consulting neurology/ID and
discontinue acyclovir/ampicillin to cover for viral/Listeria causes of meningitis/encephalitis
Sepsis was febrile and with tachycardia unclear as to source potentially SBP as there is small amount of ascites on CT unable to tap sufficiently for culture. Low clinical suspicion for [employer] infection at this time. Will continue broad-spectrum
antibiotics follow-up on blood cultures. If positive may need to consult cardiology for JENI as she has mechanical valve and ICD Which could be potential sources
Cirrhosis unclear as to etiology continue Aldactone. Will consult GI GI following. Believe that this is likely secondary to cardiac cirrhosis.
-Hepatitis BC negative
-Reviewed CT abdomen pelvis small amount of ascites. For now will cover for SBP as well on cefepime
Atrial fibrillation RVR
-Stop diltiazem drip, start Toprol 50 mg p.o. twice daily
-On Coumadin, INR 2.6
Acute on chronic HFpEF exacerbation
-Cardiology initiated Lasix 80 mg IV twice daily
Chronic hyponatremia
-Improving
Mechanical mitral valve
Continue Coumadin
INR therapeutic today continue current dosing
V-fib arrest s/p single-chamber ICD
Anticipated Discharge: > 48 hours
Subjective/Interval History
-
Date of Service: August 01, 2024
Seen and examined in atrial fibrillation RVR.
Objective Data
-
Labs:
Laboratory Results
08/01/24
07:29
WBC 11.3 H
Hgb 10.5 L
Hct 31.4 L
Plt Count 115 L
PT 28.5 H
INR 2.68
Sodium 129 L
Potassium 4.7
Chloride 100
Carbon Dioxide 16 L
BUN 51 H
Creatinine 1.8 H
Glucose 95
Calcium 8.9
Total Bilirubin 4.1 H
AST 57 H
ALT 29
Alkaline Phosphatase 259 H
Vital Signs:
Vital Signs
Temp Pulse Resp BP Pulse Ox
97.8 F 65 20 114/56 95
08/01/24 11:37 08/01/24 11:37 08/01/24 11:37 08/01/24 11:37 08/01/24 11:37
I&O
07/31/24 08/01/24 08/02/24
06:59 06:59 06:59
Intake Total 0 / 0 720 / 720
Output Total 600 / 600
Balance 0 / 0 120 / 120
[2024-08-01] MEDS: XOPENEX 0.63 MG INHALANT SOLUTION INH ×2 (14:42→23:15)
--- NOTE | 2024-08-01 15:36 | PTCARENOTE ---
Pt drowsy but arousable, alert, oriented x3 when awake; sl forgetful at times. Returns to sleep if left undisturbed. HIGHTOWER slowly/weakly. Cooperative. VSS. Telemetry:A fib. Maintained on nc 2 lpm- pulse ox 99%, pt with (+) orthopnea/tachypnea;
exp wheezes auscultated. Abd large, soft, neida PO, appetite poor. Incont urine. Resting in bed at present; family members at bedside. Will continue to monitor.
[2024-08-01] MEDS: LASIX 80 MG IV (16:21)
[2024-08-01 16:51] LABS: Glucose - Point of Care 113 mg/dl (70-99)
[2024-08-01] MEDS: COUMADIN 2.5 MG PO (17:36)
[2024-08-01] MEDS: MUCINEX 600 MG PO (21:05)
[2024-08-01] MEDS: TOPROL XL 50 MG PO (21:06)
[2024-08-01] MEDS: ZYLOPRIM 100 MG PO (21:07)
[2024-08-01 21:32] LABS: Glucose - Point of Care 188 mg/dl (70-99)
[2024-08-02 03:34] VITALS: BP 114/63
[2024-08-02 06:00] VITALS: BMI 29.4
[2024-08-02 06:05] LABS: Vancomycin Random 15.7 ug/ml
[2024-08-02 06:06] LABS: INR 3.33; PT 33.6 Sec (11.4-14.6)
[2024-08-02 07:05] VITALS: BP 104/59
[2024-08-02 07:38] LABS: Glucose - Point of Care 126 mg/dl (70-99)
[2024-08-02] MEDS: NOVOLOG FLEXPEN-LOW RESISTANCE SC ×2 (08:26→11:58)
--- NOTE | 2024-08-02 08:27 | PHA.VAN.FU ---
Vancomycin Assessment / Plan
- Assessment
Renal Function: SCR Increasing
WBC's are: Trending Up
In the past 24 hrs, patient has been: Afebrile
Concomitant Antimicrobials: CEFEPIME
- Assessment - Therapeutic Drug Monitoring
Random Level: 15.7 - DRAWN ~42H AFTER PREVIOUS 750MG DOSE
- Dosing Plan
Dosing by Level: Re-dose today (VANCO 500MG X1)
- Monitoring Plan
Random Level: 08/03 @0600
- Follow Up
Pharmacy will continue to follow.
Vancomycin Follow UP
- -
Patient Age: 78
Patient Sex: Female
Vancomycin Day #: 3
Indication: Gi / Intra-Abdominal
Requesting Provider: Dr. Valencia
Pertinent Antimicrobial Allergies:
NKDA
Height / Weight:
Height 5 ft 4 in
Actual Weight 77.621 kg
Pertinent Past Medical History: DM 2, CKD, mechanical MVR (2008)
- Vital Signs / Lab Results
Temp Pulse Resp BP Pulse Ox
98.7 F 80 20 114/63 98
08/02/24 03:34 08/02/24 03:34 08/02/24 03:34 08/02/24 03:34 08/02/24 03:34
Lab Results - Hematology
07/30/24 07/31/24 07/31/24
20:38 06:42 23:37
WBC 7.7 7.0 7.4
08/01/24
07:29
WBC 11.3 H
Lab Results - Chemistry
07/30/24 07/31/24 07/31/24
20:38 06:42 23:37
BUN 56 H 53 H 52 H
Creatinine 1.8 H 1.6 H 1.7 H
Estimated Creat Clear 28
Albumin 4.1 3.2 L
08/01/24
07:29
BUN 51 H
Creatinine 1.8 H
Estimated Creat Clear 25
Albumin 3.3 L
07/30/24 07/31/24 07/31/24
20:38 01: 23:48
Lactic Acid 2.5 H 2.2 H 2.3 H
Microbiology Results
07/30/24 20:38 Blood Culture - Preliminary
Blood/Venous No Growth in 48 hours- Final report to follow
07/30/24 20:38 Blood Culture - Preliminary
Blood/Venous No Growth in 48 hours- Final report to follow
Therapeutic Drug Monitoring
Random Vancomycin 15.7 ug/ml 08/02/24 05:01
--- NOTE | 2024-08-02 09:01 | W.PN.GI.CBS2 ---
Today's Communication / Plan
-
Continue lactulose BID, had 2 BMs yesterday
She can f/u with Dr Nelson as outpt for cirrhosis, likely cardiac cirrhosis due to congestion.
Not much to add at this point. Will sign off. Please call back if needed
Assessment / Plan
-
Pt is an 78yo with hx multiple medical problems including Afib, mech MVR on Coumadin, out of hospital arrest with ICD, prior CABG, HTN, NIDDM, CKD, prior GI bleed- post polypectomy bleeding, colon polyps with EMR in 2021 of large TA TC polyp.
She was seen by GI in April with rectal bleeding. She completed repeat colonoscopy 05/[address] Jaramillo with fair prep 2 diminutive polyps in sigmoid and transverse colon, Internal hemorrhoid and tattoo seen in descending colon bx with HP polyp.
Pt returned in May with recurrent rectal bleeding and June with decompensated heart failure. Pt was admitted again recently at [facility] for change in mental status. She was initially taken to [facility] with as concern for
stroke but that was ruled out per family and ammonia with elevated with start of Lactulose. She was discharged off lactulose and now presents 07/30 with weakness and lethargy with tachycardia shortly after return home. On admission she is noted
with fever and labs with hbg 10.4 with platelets 116, Na 130, BUN 53, creat 1.6, lactate 2.2, bili 3.5, AST 59, alt 29, alk phos 236 and ammonia of 45. Imaging with CT with noted limitation without contrast, b/l pleural effusion, atelectasias,
colitis, liver with changes of cirrhosis with prominent varices left upper quadrant and small amount of ascites in liver.
In review with patient and family no known hx liver disease or cirrhosis in past. She was given lactulose on admission with improved mental status after admission. No hx ETOH use or known hx hepatitis. She denies odynophagia, dysphagia,
GERD, nausea, vomiting, abdominal pain, diarrhea, constipation, or rectal bleeding but admits that stool chronically dark with iron use. Hx EGD 2020 with Janae Hendrickson with - Mucosal nodule found in the esophagus. HH, erythema in antrum and normal
duodenum.
Impression:
-new onset hepatic encephalopathy with elevated ammonia level on admission
-newly noted cirrhosis on CT- probably cardiac related
-thrombocytopenia
-fever/tachycardia
-hx lower GI [id number]/2024
-anemia
-hyponatremia
-hx mech MVR on Coumadin prior to admission
-recent admission to [place] with elevated ammonia and lactulose use
other med problems:
-hx post polypectomy bleeding/large TA polyp with prior EMR
-CKD
-afib
-NIDDM
-CHF
-hx CABG
-Out of hospital arrest - ICD in place
-HTN
Subjective
Subjective
Date of Service: August 02, 2024
Sleeping but arousable. Denies abd pain. 2 BMs yesterday
Objective
Data Reviewed
Laboratory Data:
Laboratory Results
08/01/24 07:29
Laboratory Results
PT 33.6 Sec (11.4-14.6) H 08/02/24 05:01
INR 3.33 08/02/24 05:01
Magnesium 2.0 mg/dl (1.6-2.3) 07/31/24 23:37
Total Bilirubin 4.1 mg/dl (0.2-1.3) H 08/01/24 07:29
AST 57 U/L (14-36) H 08/01/24 07:29
ALT 29 U/L (0-35) 08/01/24 07:29
Alkaline Phosphatase 259 U/L (38-126) H 08/01/24 07:29
Vital Signs and I&O:
Vital Signs
Temp Pulse Resp BP Pulse Ox
98.7 F 80 20 114/63 98
08/02/24 03:34 08/02/24 03:34 08/02/24 03:34 08/02/24 03:34 08/02/24 03:34
I&O
08/01/24 08/02/24 08/03/24
06:59 06:59 06:59
Intake Total 720 / 720 1380 / 1380
Output Total 600 / 600
Balance 120 / 120 1380 / 1380
Physical Exam
Physical Exam
GI: Soft, Non Distended and Non Tender
[2024-08-02 09:28] LABS: Blood Urea Nitrogen 59 mg/dl (7-17); Calcium 8.8 mg/dl (8.4-10.2); Carbon Dioxide 15 mmol/L (22-30); Chloride 100 mmol/L (98-107); Estimated Creatinine Clearance 21 ml/min; Glucose 115 mg/dl (70-99); Potassium 5.2 mmol/L (3.5-5.1); Sodium 129 mmol/L (135-145); eGFR 22.11
--- NOTE | 2024-08-02 09:36 | W.PN.HOSP.TC ---
Addendum entered and electronically signed by Mario Richter MD 08/02/24 17:10:
DVT Axillary Vein
-Therapeutic on Coumadin
-Consult Hemonc
Metabolic acidosis in the setting of CKD stage
-VBG in the AM
-NaHCO3 TID tabs started
Addendum entered and electronically signed by Mario Richter MD 08/02/24 10:20:
Hyperk
-On IV lasix
-Hold PO K BID
-Hold Aldactone
-Low K diet
Original Note:
Today's Communication/Plan
-
Assessment / Plan
Assessment / Plan
NAD
Scleral icterus
MMM
JVD
Right upper chest wall with notes/findings flat ecchymosis
Left upper chest wall with ICD
CTABL
IRR, S1/S2
Soft, NT, ND, BS+
Warm, Dry, bilateral lower extremities with chronic venous stasis change, LUE swelling
AA
Lethargic
Hepatic encephalopathy
-Lactulose with goal BM 2-3
-Started on rifaximin BID
-GI following
Sepsis, infectious work up negative thus far, GI low clinical suspicion for SBP
-Will DC atb and monitor off
-If febrile then resume atb and obtain bcx
Cirrhosis unclear as to etiology continue Aldactone. Will consult GI GI following. Believe that this is likely secondary to cardiac cirrhosis.
-Hepatitis BC negative
-Reviewed CT abdomen pelvis small amount of ascites. Low clinical suspcion for SBP at this time per GI
Atrial fibrillation RVR, now rate controlled fib
-Stop diltiazem drip, start Toprol 50 mg p.o. twice daily
-On Coumadin, INR 3.3
Acute on chronic HFpEF exacerbation
-Cardiology initiated Lasix 80 mg IV twice daily
Chronic hyponatremia
-Improving
Mechanical mitral valve
Continue Coumadin
INR therapeutic today continue current dosing
LUE swellign
-On coumadin, tx INR, will heck cvt study, likely inflitration from IV rather then DVT as INR rx.
V-fib arrest s/p single-chamber ICD
Anticipated Discharge: > 48 hours
Subjective/Interval History
-
Date of Service: August 02, 2024
seen and examined. no overnight events reported
bedside nurse updated.
-bm 1 overnight that was large
concern for left arm swelling, asking nursing to remove bracelets
-will check dvt study
Objective Data
-
Labs:
Laboratory Results
08/02/24 08/02/24
05:01 08:36
PT 33.6 H
INR 3.33
Sodium 129 L
Potassium 5.2 H
Chloride 100
Carbon Dioxide 15 L
BUN 59 H
Creatinine 2.2 H
Glucose 115 H
Calcium 8.8
Vital Signs:
Vital Signs
Temp Pulse Resp BP Pulse Ox
97.6 F 74 20 104/59 99
08/02/24 07:05 08/02/24 07:05 08/02/24 07:05 08/02/24 07:05 08/02/24 07:05
I&O
08/01/24 08/02/24 08/03/24
06:59 06:59 06:59
Intake Total 720 / 720 1380 / 1380
Output Total 600 / 600
Balance 120 / 120 1380 / 1380
[2024-08-02] MEDS: FOLVITE 0.8 MG PO (09:57)
[2024-08-02] MEDS: FIBERCON 625 MG PO (09:57)
[2024-08-02] MEDS: COLACE 100 MG PO (09:57)
[2024-08-02] MEDS: DESENEX/MITRAZOL/ZEASORB 1 APPLIC TOPICAL ×2 (09:57→20:58)
[2024-08-02] MEDS: FEOSOL 325 MG PO (09:57)
[2024-08-02] MEDS: LASIX 80 MG IV ×2 (09:58→17:55)
[2024-08-02] MEDS: ALDACTONE 25 MG PO (09:58)
[2024-08-02] MEDS: PROTONIX 40 MG PO ×2 (09:59→20:39)
[2024-08-02] MEDS: XIFAXAN 550 MG PO ×2 (09:59→20:39)
[2024-08-02] MEDS: TOPROL XL 50 MG PO ×2 (09:59→22:09)
[2024-08-02] MEDS: THERAGRAN 1 TABLET PO (09:59)
[2024-08-02] MEDS: MUCINEX 600 MG PO ×2 (09:59→20:38)
[2024-08-02] MEDS: VANCOCIN HCL 500 MG 100 IV (09:59)
[2024-08-02] MEDS: DUPHALAC/CHRONULAC 20 GRAMS PO (10:02)
[2024-08-02] MEDS: FLUSH (NSS) 2 FLUSH IV (10:02)
[2024-08-02] MEDS: KCL PO (10:57)
[2024-08-02 11:02] LABS: Glucose - Point of Care 145 mg/dl (70-99)
[2024-08-02 11:34] VITALS: BP 120/70
[2024-08-02] MEDS: XOPENEX 0.63 MG INHALANT SOLUTION INH ×2 (13:56→21:14)
[2024-08-02 15:35] VITALS: BP 117/70
[2024-08-02 17:01] LABS: Glucose - Point of Care 152 mg/dl (70-99)
--- NOTE | 2024-08-02 17:42 | CM ---
Alert awake oriented patient who lives with her Rene who lives in a 2 story home with 3 steps plus ramp to enter and stairglide to bed bathroom. She is assisted in all activities of daily living.Pt on new oxygen . Will need PT OT eval for
dc planning.
ramp stair glide New oxygen walker cane
[facility] [place] [facility]
PCP Dr Kolb
PLAN will need PT OT for dc planning.
[2024-08-02] MEDS: NOVOLOG FLEXPEN-LOW RESISTANCE 1 UNITS SC (17:54)
[2024-08-02] MEDS: COUMADIN 2.5 MG PO (17:56)
[2024-08-02 19:38] VITALS: BP 97/54
[2024-08-02] MEDS: SODIUM BICARBONATE 1300 MG PO (20:38)
[2024-08-02] MEDS: DUPHALAC/CHRONULAC 30 GRAMS PO (20:47)
[2024-08-02] MEDS: ZYLOPRIM 100 MG PO (22:09)
[2024-08-02 23:35] VITALS: BP 107/69
[2024-08-03 03:01] VITALS: BP 96/81
[2024-08-03 03:36] LABS: Glucose - Point of Care 150 mg/dl (70-99)
[2024-08-03 06:00] VITALS: BMI 28.4
[2024-08-03 06:24] LABS: Venous Blood Gas B.E. -4.7 mmol/L (-4 to +4); Venous Blood Gas HCO3 19.2 mmol/L (22-27); Venous Blood Gas O2 Sat % 99.5 %; Venous Blood Gas pCO2 31 mmHg (35-48); Venous Blood Gas pO2 157 mmHg (30-50)
[2024-08-03 07:45] LABS: Glucose - Point of Care 115 mg/dl (70-99)
[2024-08-03 07:55] VITALS: BP 124/60
[2024-08-03 08:16] LABS: INR 4.73; PT 43.8 Sec (11.4-14.6)
[2024-08-03 08:49] LABS: Blood Urea Nitrogen 63 mg/dl (7-17); Calcium 8.9 mg/dl (8.4-10.2); Carbon Dioxide 18 mmol/L (22-30); Chloride 97 mmol/L (98-107); Estimated Creatinine Clearance 19 ml/min; Glucose 116 mg/dl (70-99); Sodium 129 mmol/L (135-145); eGFR 19.92
[2024-08-03 08:56] LABS: Hematocrit 31.1 % (37.0-47.0); Hemoglobin 10.5 g/dL (12.0-16.0); Mean Corp Hgb Conc. 33.8 g/dL (33.0-37.0); Mean Corpuscular Hgb 31.5 pg (27.0-31.0); Mean Corpuscular Volume 93.4 fL (81.0-99.0); Mean Platelet Volume 12.4 fL (7.4-10.4); Platelet Count 141 10^3/uL (130-400); Red Blood Cell Count 3.33 10^6/uL (4.20-5.40); Red Cell Dist. Width 19.4 % (11.5-14.5); White Blood Cell Count 5.7 10^3/uL (4.8-10.8)
[2024-08-03] MEDS: NOVOLOG FLEXPEN-LOW RESISTANCE SC ×2 (09:44→15:48)
--- NOTE | 2024-08-03 09:49 | W.PN.HOSP.TC ---
Today's Communication/Plan
-
Follow-up renal function
Follow-up nephrology recommendations
Follow-up on urine studies
Follow-up on hematology recommendation
Hold Coumadin
Daily INR
Hold Lasix metolazone and Aldactone
Continue metoprolol and monitor on telemetry, currently rate controlled A-fib
Continue lactulose rifaximin
Overall prognosis guarded
Assessment / Plan
Assessment / Plan
NAD
Scleral icterus
MMM
JVD
Right upper chest wall with notes/findings flat ecchymosis
Left upper chest wall with ICD
CTABL
IRR, S1/S2
Soft, NT, ND, BS+
Warm, Dry, bilateral lower extremities with chronic venous stasis change, LUE swelling
AA
Lethargic
Hepatic encephalopathy
-Lactulose with goal BM 2-3
-Started on rifaximin BID
-GI following
Sepsis, infectious work up negative thus far, GI low clinical suspicion for SBP
-Will DC atb and monitor off
-If febrile then resume atb and obtain bcx
JOJO on CKD Stage IV
-Suspect related to overdiuresis. Will hold Lasix, metolazone and Aldactone at this time
-Will check renal bladder ultrasound, CK, urine sodium and urine awesome urine creatinine and protein
-Avoid nephrotoxins and hypotension
-Will consult nephrology
-Low clinical suspicion at this time for hepatorenal syndrome as no evidence of hypotension however urine sodium would help
-Albumin from August 01 3.3
Metabolic acidosis in the setting of JOJO and CKD stage IV
-Per KDIGO guidelines we will go ahead and initiate sodium bicarb therapy started on 1300 mg twice a day on 08/02/2024
-Goal bicarb should be around 22-26
Cirrhosis unclear as to etiology, GI suspects that this is likely secondary to cardiac cirrhosis
-Hepatitis BC negative
-Reviewed CT abdomen pelvis small amount of ascites. Low clinical suspcion for SBP at this time per GI
Atrial fibrillation RVR, now rate controlled fib
-Stop diltiazem drip, start Toprol 50 mg p.o. twice daily
-On Coumadin, INR 4.7
-- Will hold additional Coumadin as this is a supratherapeutic member, will need to monitor for bleeding. If begins to bleed then may need to provide vitamin K IV/p.o. in the event hemodynamically unstable bleeding FFP/Kcentra may be required
Acute on chronic HFpEF exacerbation
-Hold Lasix 80 mg IV twice daily due to JOJO
-Hold metolazone due to JOJO
Chronic hyponatremia
-Improving
Mechanical mitral valve
Continue Coumadin
Supratherapeutic, hold night dose of Coumadin, repeat INR tomorrow
DVT Left Axillary Vein
-On coumadin, supratherapeutic INR, will heck cvt study, likely inflitration from IV rather then DVT as INR rx.
-DVT study was positive, on therapeutic INR, will consult hematology and would appreciate input
V-fib arrest s/p single-chamber ICD
GoC discussion have been initiated. Family not ready as of yet as m&m dscussion just began and has had multiple hospitalizations since April.
Anticipated Discharge: > 48 hours
Subjective/Interval History
-
Date of Service: August 03, 2024
Seen and examined. at bedside. Provided update., Began discussions of goals of care, end-of-life/hospice as this has not been discussed previously
Objective Data
-
Labs:
Laboratory Results
08/03/24
06:18
WBC 5.7
Hgb 10.5 L
Hct 31.1 L
Plt Count 141 D
PT 43.8 H
INR 4.73
Sodium 129 L
Potassium 4.0
Chloride 97 L
Carbon Dioxide 18 L
BUN 63 H
Creatinine 2.4 H
Glucose 116 H
Calcium 8.9
Vital Signs:
Vital Signs
Temp Pulse Resp BP Pulse Ox
97.5 F 69 16 124/60 99
08/03/24 07:55 08/03/24 07:55 08/03/24 07:55 08/03/24 07:55 08/03/24 07:55
I&O
08/02/24 08/03/24 08/04/24
06:59 06:59 06:59
Intake Total 1380 / 1380 460 / 460
Output Total 240 / 240
Balance 1380 / 1380 220 / 220
[2024-08-03] MEDS: LASIX IV (09:57)
--- NOTE | 2024-08-03 10:02 | CON.ONC ---
Impression
Impression
non-occlusive left axillary thrombosis
chronic warfarin for mechanical valve
cirrhosis, hepatic encephalopathy
HFpEF
JOJO
Plan
Plan
thrombus is not occlusive, may be chronic, could've been provoked by AICD, IV access, etc.
continue warfarin, INR 2.5 - 3
not a candidate for DOAC w/ mechanical valve, Lovenox is not ideal w/ JOJO and logistics
Goal of care discussions, prognosis seems poor
Hematology will sign off, please call with any questions
Patient History
History of Present Illness
This is an 78 y F w/ h/o mechanical mitral valve on warfarin, admitted with change in mental status, and hepatic encephalopathy with cirrhosis, suspected cardiac in etiology. Her INR was subtherapeutic at admission (2.05, goal is 2.5 - 3). She was
noted to have left arm swelling yesterday, and US showed nonocclusive thrombus in the left axillary vein. She also has h/o left chest wall AICD.
She's lethargic, but arousable, and not conversant.
Past-Medical/Surgical History
Past Medical History
Past Medical History: Reports Other (hypertension, hyperlipidemia, severe status post TAVR in 2022, mechanical mitral valve replacement 2008, HFpEF, type 2 diabetes, V-fib arrest status post single chamber ICD, permanent atrial fibrillation, CAD
status post CABG, CKD 4,)
Past Surgical History: Reports Other ( Cardiac (Pacer/Defib, Mitral valve replaced,. CABG X 4, TAVR), Cholecystectomy and Other (cataracts))
Social History
Tobacco: Non-smoker
Alcohol: None
Drug: None
Family History
Family History: Not pertinent
Patient Medication
�Medication �Instructions �Recorded �Confirmed �Last Taken �Type
levalbuterol HCl 0.63 mg/3 mL 0.63 mg inhalation R Q8HPRN PRN 11/22/22 07/30/24 Unknown History
solution for nebulization sob/wheezing
docusate sodium 100 mg capsule 100 mg PO DAILY Constipation 05/01/24 07/30/24 Unknown History
(Colace)
ferrous sulfate 325 mg (65 mg 325 mg PO DAILY Supplement 05/01/24 07/30/24 Unknown History
iron) tablet
omega 5-akx-wwb-fish oil 1,000 mg 1 cap PO DAILY Supplement 05/01/24 07/30/24 Unknown History
(120 mg-180 mg) capsule (Fish Oil)
nitroglycerin 0.4 mg sublingual 0.4 mg sublingual [id number] PRN 05/12/24 07/30/24 Unknown Rx
tablet chest pain 30 days #20 tabs
pantoprazole 40 mg tablet,delayed 40 mg PO BID Gastrointestinal 05/12/24 07/30/24 Unknown Rx
release issue 30 days #60 tabs
repaglinide 0.5 mg tablet 0.5 mg PO AC Diabetes 30 days #30 05/12/24 07/30/24 12/12/22 Rx
tabs
sennosides 8.6 mg capsule (senna) 8.6 mg PO DAILYPRN PRN 05/12/24 07/30/24 Unknown Rx
constipation 30 days #30 caps
therapeutic multivitamin 1 tab PO DAILY Supplement 30 days 05/12/24 07/30/24 Unknown Rx
#30 tabs
allopurinol 100 mg tablet 100 mg PO HS Gout 06/10/24 07/30/24 Unknown History
calcium polycarbophil 625 mg 625 mg PO DAILY 06/10/24 07/30/24 Unknown History
tablet (Fiber-Lax)
metoprolol succinate 25 mg capsule 25 mg PO BID Blood Pressure 06/10/24 07/30/24 Unknown History
sprinkle, ext. release 24 hr
potassium chloride 10 mEq 20 meq (2 x 10 mEq) PO BID 06/21/24 07/30/24 Unknown Rx
capsule,extended release Supplement 30 days #30 caps
spironolactone 25 mg tablet 25 mg PO DAILY Fluid 06/21/24 07/30/24 Unknown Rx
retention/Swelling #0 tabs
zolpidem 5 mg tablet 5 mg PO HSPRN PRN insomnia #2 tabs 06/21/24 07/30/24 Unknown Rx
folic acid 0.8 mg capsule 0.8 mg PO DAILY 07/30/24 07/30/24 Unknown History
metolazone 5 mg tablet 5 mg PO MOWEFR Fluid 07/30/24 07/30/24 Unknown History
retention/Swelling
torsemide 20 mg tablet 20 mg PO DAILY Fluid 07/30/24 07/30/24 Unknown History
Retention/Swelling
warfarin 2.5 mg tablet 1.25 mg PO SUTUTH 07/30/24 07/30/24 Unknown History
warfarin 2.5 mg tablet 2.5 mg PO MOWEFRSA Blood clot 07/30/24 07/30/24 Unknown History
prevention/tx
Active Medications
Generic Name Dose Route Start Last Admin
Trade Name Freq PRN Reason Stop Dose Admin
Allopurinol 100 mg 07/31/24 22:00 08/02/24 22:09
Allopurinol 100 Mg Tablet PO 08/28/24 21:59 100 mg
HS KYLEE Administration
Calcium Polycarbophil 625 mg 07/31/24 08:00 08/02/24 09:57
Calcium Polycarbophil 625 Mg Tablet PO 08/28/24 07:59 625 mg
DAILY KYLEE Administration
Dextrose 12.5 grams 07/31/24 02:11
Dextrose 50% (0.5 Grams/Ml) 50 Ml Syringe IV 08/28/24 02:10
[id number] PRN
hypoglycemia
Protocol
Docusate Sodium 100 mg 07/31/24 08:00 08/02/24 09:57
Docusate Sodium 100 Mg Capsule PO 08/28/24 07:59 100 mg
DAILY KYLEE Administration
Ferrous Sulfate 325 mg 07/31/24 08:00 08/02/24 09:57
Ferrous Sulfate 325 Mg Tablet PO 08/28/24 07:59 325 mg
DAILY KYLEE Administration
Folic Acid 0.8 mg 07/31/24 08:00 08/02/24 09:57
Folic Acid 0.4 Mg Tablet PO 08/28/24 07:59 0.8 mg
DAILY KYLEE Administration
Furosemide 80 mg 08/01/24 16:00 08/02/24 17:55
Furosemide 100 Mg (10 Mg/Ml) 10 Ml Vial IV 08/29/24 15:59 80 mg
BID AT 0800,1600 KYLEE Administration
Glucagon 1 mg 07/31/24 02:11
Glucagon 1 Mg Vial IM 08/28/24 02:10
PRN PRN
hypoglycemia
Protocol
Guaifenesin 600 mg 08/01/24 20:00 08/02/24 20:38
Guaifenesin 600 Mg Extended Release Tablet PO 08/29/24 19:59 600 mg
Q12 KYLEE Administration
Insulin Aspart 0 units 07/31/24 07:30 08/03/24 09:44
Insulin Aspart Low Resistance 300 Units/3 Ml Pen.Injctr SC 08/28/24 07:29 Not Given
AC KYLEE
Protocol
Lactulose 30 grams 08/02/24 09:43 08/02/24 20:47
Lactulose Solution (20 Grams/30 Ml) 30 Ml Cup PO 08/28/24 07:59 30 grams
BID KYLEE Administration
Levalbuterol HCl 0.63 mg 07/31/24 02:11 08/02/24 21:14
Levalbuterol 0.63 Mg/3 Ml Ampul INH 0.63 mg
R Q8HPRN PRN Administration
sob/wheezing
Protocol
Metolazone 5 mg 08/01/24 08:00 08/01/24 09:21
Metolazone 5 Mg Tablet PO 08/29/24 07:59 5 mg
MoWeFr@0800 KYLEE Administration
Metoprolol Succinate 50 mg 08/01/24 20:00 08/02/24 22:09
Metoprolol 50 Mg Extended Release Tablet PO 08/29/24 19:59 50 mg
BID KYLEE Administration
Miconazole Nitrate 0 applic 07/31/24 08:00 08/02/24 20:58
Miconazole Powder Bottle TOPICAL 08/28/24 07:59 1 applic
BID KYLEE Administration
Multivitamins Therapeutic 1 tablet 07/31/24 08:00 08/02/24 09:59
Multivitamin Tablet PO 08/28/24 07:59 1 tablet
DAILY KYLEE Administration
Nitroglycerin 0.4 mg 07/31/24 02:11
Nitroglycerin 0.4 Mg Sl Tablet SL 08/28/24 02:10
[id number] PRN
chest pain
Pantoprazole Sodium 40 mg 07/31/24 08:00 08/02/24 20:39
Pantoprazole 40 Mg Delayed Release Tablet PO 08/28/24 07:59 40 mg
BID KYLEE Administration
Potassium Chloride 20 meq 07/31/24 08:00 08/02/24 10:57
Potassium Chloride 10 Meq Extended Release Tablet PO 08/28/24 07:59 Not Given
BID KYLEE
Rifaximin 550 mg 07/31/24 10:00 08/02/24 20:39
Rifaximin 550 Mg Tablet PO 10/28/24 20:01 550 mg
BID KYLEE Administration
Sennosides 8.6 mg 07/31/24 02:11
Sennosides (Senokot) 8.6 Mg Tablet PO 08/28/24 02:10
DAILYPRN PRN
constipation
Sodium Bicarbonate 1,300 mg 08/02/24 20:00 08/02/24 20:38
Sodium Bicarbonate 650 Mg Tablet PO 08/30/24 19:59 1,300 mg
BID KYLEE Administration
Sodium Chloride 0 flush 07/30/24 23:00 08/02/24 10:02
Sodium Chloride 0.9% (Flush) Syringe IV 08/27/24 22:59 2 flush
PER PROTOCOL KYLEE Administration
Spironolactone 25 mg 07/31/24 08:00 08/02/24 09:58
Spironolactone 25 Mg Tablet PO 08/28/24 07:59 25 mg
DAILY KYLEE Administration
Warfarin Sodium 2.5 mg 08/01/24 18:00 08/02/24 17:56
Warfarin 2.5 Mg Tablet PO 08/06/24 17:59 2.5 mg
MoWeFrSa@1800 KYLEE Administration
Warfarin Sodium 1.25 mg 08/03/24 18:00
Warfarin 2.5 Mg Tablet PO 08/08/24 17:59
SuTuTh@1800 KYLEE
Review of Systems
-
Unable to obtain full review of systems at this time due to: Patient Non Verbal
Physical Exam
-
General: Appears Chronically Ill
Musculoskeletal: Other (mild left arm swelling/anasarca, with ecchymoses)
Labs
Lab Results
WBC 5.7 10^3/uL (4.8-10.8) 08/03/24 06:18
RBC 3.33 10^6/uL (4.20-5.40) L 08/03/24 06:18
Hgb 10.5 g/dL (12.0-16.0) L 08/03/24 06:18
Hct 31.1 % (37.0-47.0) L 08/03/24 06:18
MCV 93.4 fL (81.0-99.0) 08/03/24 06:18
MCH 31.5 pg (27.0-31.0) H 08/03/24 06:18
MCHC 33.8 g/dL (33.0-37.0) 08/03/24 06:18
RDW 19.4 % (11.5-14.5) H 08/03/24 06:18
Plt Count 141 10^3/uL (130-400) D 08/03/24 06:18
MPV 12.4 fL (7.4-10.4) H 08/03/24 06:18
Abs Immat Gran (auto) 0.0 10^3/uL (0-0.05) 07/31/24 06:42
Absolute Neuts (auto) 5.2 10^3/uL (1.4-6.5) 07/31/24 06:42
Absolute Lymphs (auto) 0.9 10^3/uL (1.2-3.4) L 07/31/24 06:42
Absolute Monos (auto) 0.7 10^3/uL (0.1-0.6) H 07/31/24 06:42
Absolute Eos (auto) 0.1 10^3/uL (0-0.7) 07/31/24 06:42
Absolute Basos (auto) 0.0 10^3/uL (0-0.2) 07/31/24 06:42
Immature Gran % 0.6 % (0-0.5) H 07/31/24 06:42
Neutrophils % 74.8 % (42.2-75.2) 07/31/24 06:42
Lymphocytes % 12.3 % (20.5-51.1) L 07/31/24 06:42
Monocytes % 10.0 % (1.7-9.3) H 07/31/24 06:42
Eosinophils % 1.9 % (0-6) 07/31/24 06:42
Basophils % 0.4 % (0-2) 07/31/24 06:42
Creatinine 2.4 mg/dL (0.6-1.0) H 08/03/24 06:18
Vital Signs
Vital Signs
Temp Pulse Resp BP Pulse Ox
97.5 F 69 16 124/60 99
08/03/24 07:55 08/03/24 07:55 08/03/24 07:55 08/03/24 07:55 08/03/24 07:55
[2024-08-03] MEDS: XOPENEX 0.63 MG INHALANT SOLUTION INH (10:41)
[2024-08-03 11:30] VITALS: BP 113/66
--- NOTE | 2024-08-03 12:51 | W.PN.CD ---
Today's Communication / Plan
-
Hold coumadin 08/03/24 - then daily dosing
-lasix 80mg IV bid, stopped due to rise in creatinine
Impression / Plan
-
Altered MS: likely multifactorial
-patient with hyponatremia (improving), elevated ammonia (s/p lactulose), and fever
-primary team, GI consult managing
Acute on chronic HFPEF
-high risk with CKD4
-will aim for 73kg
-lasix 80mg IV bid, stopped due to rise in creatinine
Permanent A fib
-rate controlled
-continue Toprol XL to 50mg bid
-warfarin for OAC given mechanical MVR
Mechanical MVR:
- NOT A DOAC CANDIDATE DUE TO MVR
-continue warfarin
-INR goal 2.5-3.0 (narrower goal due to bleeding in past)
.INR > 4.7
- Hold coumadin 08/03/24 - then daily dosing
axillary vein nonocclusive thrombus - remaisnon warfarin. hematology consult as noted
Physical Exam
Vital Signs/Labs
Vital Signs
Temp Pulse Resp BP Pulse Ox
97.5 F 69 16 124/60 99
08/03/24 07:55 08/03/24 07:55 08/03/24 07:55 08/03/24 07:55 08/03/24 07:55
08/02/24 08/03/24 08/04/24
06:59 06:59 06:59
Actual Weight 77.621 kg 75.041 kg
08/03/24 06:18
08/03/24 06:18
PT 43.8 Sec (11.4-14.6) H 08/03/24 06:18
INR 4.73 08/03/24 06:18
Magnesium 2.0 mg/dl (1.6-2.3) 07/31/24 23:37
Physical Exam
Constitutional: No acute distress
Cardiovascular: Rhythm/rate is irregular
Respiratory: Wheeze Absent and Rhonchi Absent
GI: Non tender
Neuro/Psych: Alert
Data Reviewed
-
Date of Service: August 03, 2024
Medical Decision Making: Reviewed Test Results
Medical Tests (PFT, Pathology etc): Report Reviewed by me
Labs: Labs Reviewed by me
[2024-08-03] MEDS: PROTONIX PO (14:03)
[2024-08-03] MEDS: DUPHALAC/CHRONULAC PO ×2 (14:03→20:40)
[2024-08-03] MEDS: FOLVITE PO (14:03)
[2024-08-03] MEDS: FIBERCON PO (14:03)
[2024-08-03] MEDS: COLACE PO (14:03)
[2024-08-03] MEDS: DESENEX/MITRAZOL/ZEASORB TOPICAL (14:03)
[2024-08-03] MEDS: FEOSOL PO (14:03)
[2024-08-03] MEDS: MUCINEX PO (14:03)
[2024-08-03] MEDS: THERAGRAN PO (14:04)
[2024-08-03] MEDS: SODIUM BICARBONATE PO (14:04)
[2024-08-03] MEDS: TOPROL XL PO (14:04)
[2024-08-03] MEDS: XIFAXAN PO (14:05)
[2024-08-03 14:30] LABS: Creatine Phosphokinase < 20 U/L (30-135)
--- NOTE | 2024-08-03 14:30 | W.CON.NEPH ---
Consultation
-
Date/Time Consultation Requested: August 03, 2024 at 9:30 AM
Date/Time Consultation Performed: August 03, 2024 at 2 PM
Requesting Provider: Dr. Richter
Performing Provider: Dr. Pascual Gomez
Reason for Consultation: altered mental status the setting of chronic kidney disease
Medical History
-
Chief Complaint: altered mental status
History of Present Illness:
The patient is an 78-year-old female with a past medical history of chronic HFpEF(maintained on torsemide), mechanical mitral valve, TAVR, ventricular fibrillation status post ICD, CAD status post CABG, chronic right bundle branch block, permanent
atrial fibrillation, CKD 3b vs 4 hypertension (maintained on metoprolol, hyperlipidemia, type 2 diabetes, gout, tremors, subdural hemorrhage, obesity, who had recurrent admits for rectal bleeding.
she's had to admissions in the last month for worsening renal function one with a volume overload. She is baseline creatinine around 1.8.
His discharge from the hospital June the granting of a 2.4. She was admitted July 30 creatinine of 1.8 has increased to 2.4.
she was admitted to the hospital on this time with an altered mental statusShe's been getting 80 mg of IV diuretics which have been held because of the creatinine
daughter was bedside to help with history obtaining
She's being seen by oncology for thrombocytopenia
Past Medical History
(chronic HFpEF, mechanical mitral valve, TAVR, ventricular fibrillation status post ICD, CAD status post CABG, chronic right bundle branch block, permanent atrial fibrillation, CKD 4 (2), hypertension, hyperlipidemia, type 2 diabetes, gout, tremors,
subdural hemorrhage, obesity,)
Past Surgical History: Other (TAVR Mechanical Mitral Valve Replacemnt CABG)
Social History
Tobacco: Non-Smoker
Alcohol: None
Personal:
Living: Longterm (rehab)
Employment: Retired
Family History
No chronic kidney disease
Family History: Not Pertinent
Allergies / Home Medications
Allergy/AdvReac Type Severity Reaction Status Date / Time
No Known Allergies Allergy Verified 07/30/24 20:23
�Medication �Instructions �Recorded �Confirmed �Type
levalbuterol HCl 0.63 mg/3 mL 0.63 mg inhalation R Q8HPRN PRN 11/22/22 07/30/24 History
solution for nebulization sob/wheezing
docusate sodium 100 mg capsule 100 mg PO DAILY Constipation 05/01/24 07/30/24 History
(Colace)
ferrous sulfate 325 mg (65 mg 325 mg PO DAILY Supplement 05/01/24 07/30/24 History
iron) tablet
omega 7-bkm-ryy-fish oil 1,000 mg 1 cap PO DAILY Supplement 05/01/24 07/30/24 History
(120 mg-180 mg) capsule (Fish Oil)
nitroglycerin 0.4 mg sublingual 0.4 mg sublingual [id number] PRN 05/12/24 07/30/24 Rx
tablet chest pain 30 days #20 tabs
pantoprazole 40 mg tablet,delayed 40 mg PO BID Gastrointestinal 05/12/24 07/30/24 Rx
release issue 30 days #60 tabs
repaglinide 0.5 mg tablet 0.5 mg PO AC Diabetes 30 days #30 05/12/24 07/30/24 Rx
tabs
sennosides 8.6 mg capsule (senna) 8.6 mg PO DAILYPRN PRN 05/12/24 07/30/24 Rx
constipation 30 days #30 caps
therapeutic multivitamin 1 tab PO DAILY Supplement 30 days 05/12/24 07/30/24 Rx
#30 tabs
allopurinol 100 mg tablet 100 mg PO HS Gout 06/10/24 07/30/24 History
calcium polycarbophil 625 mg 625 mg PO DAILY 06/10/24 07/30/24 History
tablet (Fiber-Lax)
metoprolol succinate 25 mg capsule 25 mg PO BID Blood Pressure 06/10/24 07/30/24 History
sprinkle, ext. release 24 hr
potassium chloride 10 mEq 20 meq (2 x 10 mEq) PO BID 06/21/24 07/30/24 Rx
capsule,extended release Supplement 30 days #30 caps
spironolactone 25 mg tablet 25 mg PO DAILY Fluid 06/21/24 07/30/24 Rx
retention/Swelling #0 tabs
zolpidem 5 mg tablet 5 mg PO HSPRN PRN insomnia #2 tabs 06/21/24 07/30/24 Rx
folic acid 0.8 mg capsule 0.8 mg PO DAILY 07/30/24 07/30/24 History
metolazone 5 mg tablet 5 mg PO MOWEFR Fluid 07/30/24 07/30/24 History
retention/Swelling
torsemide 20 mg tablet 20 mg PO DAILY Fluid 07/30/24 07/30/24 History
Retention/Swelling
warfarin 2.5 mg tablet 1.25 mg PO SUTUTH 07/30/24 07/30/24 History
warfarin 2.5 mg tablet 2.5 mg PO MOWEFRSA Blood clot 07/30/24 07/30/24 History
prevention/tx
Review of Systems
-
Unable to obtain full review of systems at this time due to: Acuity
Physical Exam
Vital Signs
Vital Signs
Temp Pulse Resp BP Pulse Ox
97.5 F 66 16 113/66 97
08/03/24 11:30 08/03/24 11:30 08/03/24 11:30 08/03/24 11:30 08/03/24 11:30
Lab Results
WBC 5.7 10^3/uL (4.8-10.8) 08/03/24 06:18
RBC 3.33 10^6/uL (4.20-5.40) L 08/03/24 06:18
Hgb 10.5 g/dL (12.0-16.0) L 08/03/24 06:18
Hct 31.1 % (37.0-47.0) L 08/03/24 06:18
Plt Count 141 10^3/uL (130-400) D 08/03/24 06:18
Sodium 129 mmol/L (135-145) L 08/03/24 06:18
Potassium 4.0 mmol/L (3.5-5.1) 08/03/24 06:18
Chloride 97 mmol/L (98-107) L 08/03/24 06:18
Carbon Dioxide 18 mmol/L (22-30) L 08/03/24 06:18
BUN 63 mg/dl (7-17) H 08/03/24 06:18
Creatinine 2.4 mg/dL (0.6-1.0) H 08/03/24 06:18
eGFR 19.92 08/03/24 06:18
Glucose 116 mg/dl (70-99) H 08/03/24 06:18
Calcium 8.9 mg/dl (8.4-10.2) 08/03/24 06:18
Albumin 3.3 g/dl (3.5-5.0) L 08/01/24 07:29
Physical Exam
General: Awake
HEENT: EOMI and Neck Supple
Respiratory: Clear, Normal Excursion and Nonlabored Respirations
Cardiac: S1/S2 and Regular Rate/Rhythm
Breast: Deferred by me
Abdomen: Soft, Nontender and Nondistended
Musculoskeletal: No Cyanosis and Edema (2+)
Skin: No Rash
Neuro: Nonfocal/Grossly Intact
Psych: Appropriate
Data Reviewed
-
Radiology: Image Personally Visualized and interpreted
Labs: Labs Reviewed by me
Assessment/Plan
-
Impression:
new onset hepatic encephalopathy
Acute on chr D CHF
Acute kidney injury
CKD stage IIIb with baseline creatinine 1.7
Metabolic acidosis
Permanent Atrial fibrillation on chronic anticoagulation
Hypertension
Diabetes
Valvular heart disease (hx of mechanical valve replacement)
CAD with history of CABG
ICD
Thrombocytopenia
Elevated LFTs
Plan:
baseline creatinine 1.8 with creatinine at 2.4 of the last few days of admission likely secondary to diuretics
I do not believe this is a HRS but will wait for urine indices
urinalysis on the no hematuria no proteinuria.
Holding Lasix/Spironolactone/metolazone
continuing lactulose
daily weights
[2024-08-03 14:33] LABS: Glucose - Point of Care 151 mg/dl (70-99)
[2024-08-03 15:33] LABS: Osmolality Urine 315 mOsm/kg (300-900)
[2024-08-03 15:42] LABS: Urine Protein 15 mg/dl (0-12); Urine Sodium 115 mmol/L (30-90)
[2024-08-03 15:55] VITALS: BP 125/63
[2024-08-03 17:31] LABS: Glucose - Point of Care 205 mg/dl (70-99)
--- NOTE | 2024-08-03 17:42 | PTCARENOTE ---
Patient refused all PO meds this AM. Notified.
[2024-08-03] MEDS: NOVOLOG FLEXPEN-LOW RESISTANCE 2 UNITS SC (17:48)
[2024-08-03 19:25] VITALS: BP 122/74
[2024-08-03] MEDS: DESENEX/MITRAZOL/ZEASORB 1 APPLIC TOPICAL (20:40)
[2024-08-03] MEDS: DUPHALAC/CHRONULAC 30 GRAMS PO (20:40)
[2024-08-03] MEDS: XIFAXAN 550 MG PO (20:41)
[2024-08-03] MEDS: ZYLOPRIM 100 MG PO (20:41)
[2024-08-03] MEDS: TOPROL XL 50 MG PO (20:41)
[2024-08-03] MEDS: SODIUM BICARBONATE 1300 MG PO (20:41)
[2024-08-03] MEDS: PROTONIX 40 MG PO (20:41)
[2024-08-03] MEDS: MUCINEX 600 MG PO (20:41)
[2024-08-03 21:31] LABS: Glucose - Point of Care 101 mg/dl (70-99)
[2024-08-03 23:19] VITALS: BP 118/75
[2024-08-04 03:35] VITALS: BP 109/66
[2024-08-04 04:41] VITALS: BP 109/66
[2024-08-04 05:16] VITALS: BMI 27.6
[2024-08-04 07:35] VITALS: BP 120/74
[2024-08-04 07:35] LABS: Glucose - Point of Care 93 mg/dl (70-99)
[2024-08-04] MEDS: NOVOLOG FLEXPEN-LOW RESISTANCE SC ×3 (07:36→17:03)
[2024-08-04 07:39] LABS: Hematocrit 31.2 % (37.0-47.0); Hemoglobin 10.9 g/dL (12.0-16.0); Mean Corp Hgb Conc. 34.9 g/dL (33.0-37.0); Mean Corpuscular Hgb 31.7 pg (27.0-31.0); Mean Corpuscular Volume 90.7 fL (81.0-99.0); Mean Platelet Volume 11.4 fL (7.4-10.4); Platelet Count 135 10^3/uL (130-400); Red Blood Cell Count 3.44 10^6/uL (4.20-5.40); Red Cell Dist. Width 18.9 % (11.5-14.5)
[2024-08-04 08:09] LABS: Blood Urea Nitrogen 62 mg/dl (7-17); Calcium 8.7 mg/dl (8.4-10.2); Carbon Dioxide 22 mmol/L (22-30); Chloride 96 mmol/L (98-107); Estimated Creatinine Clearance 21 ml/min; Glucose 92 mg/dl (70-99); Potassium 3.5 mmol/L (3.5-5.1); Sodium 129 mmol/L (135-145); eGFR 23.38
[2024-08-04] MEDS: XIFAXAN PO ×2 (09:19→20:38)
--- NOTE | 2024-08-04 09:19 | PTCARENOTE ---
Patient refused all PO medications this am. Dr. Hogan aware. Plan of care ongoing.
[2024-08-04] MEDS: DUPHALAC/CHRONULAC 30 GRAMS PO ×2 (09:20→20:26)
[2024-08-04] MEDS: COLACE PO (09:20)
[2024-08-04] MEDS: FEOSOL PO (09:22)
[2024-08-04] MEDS: FOLVITE PO (09:22)
[2024-08-04] MEDS: FIBERCON PO (09:22)
[2024-08-04] MEDS: PROTONIX PO ×2 (09:22→20:38)
[2024-08-04] MEDS: MUCINEX PO ×2 (09:22→20:38)
[2024-08-04] MEDS: THERAGRAN PO (09:23)
[2024-08-04] MEDS: TOPROL XL PO ×2 (09:23→20:38)
[2024-08-04] MEDS: SODIUM BICARBONATE PO ×2 (09:23→20:38)
[2024-08-04] MEDS: DESENEX/MITRAZOL/ZEASORB 1 APPLIC TOPICAL ×2 (09:25→20:26)
--- NOTE | 2024-08-04 09:52 | W.PN.HOSP.TC ---
Addendum entered and electronically signed by Prashant Hogan MD 08/04/24 15:15:
#chronic dissection of the abdominal aorta
will discuss with VascSx
Original Note:
Today's Communication/Plan
-
follow labs
cont to hold diuretics
wean off O2
Assessment / Plan
Assessment / Plan
78yo F with PMHx of HFpEF, mechanical MV, TAVR, V.Fib s/p ICD, CAD s/p CABG, RBBB, permanent A.fib, CKD, HTN, Hx of subdural hemorrhage, rectal bleeding, DM, gout brought with fever, confusion, managed for hepatic encephalopathy, most likely 2/2 CHF
and axilary vein non-occlusive thrombus. CT on admission showed colitis of the descending colon and splenic flexure
A/P
#Hepatic encephalopathy
#Chronic elevation of alk.phos
#Chronic transaminitis
on lactulose
follow Ammonia
GI followed: hepatitis panel neg
Liver cirrhosis seen on CT
#Acute respiratory insufficiency with b/l small pleural effusion
#Acute on Chronic HFpEF
#mechanical MV
# s/p TAVR
#Permanent A.finb
#SVT s/p ICD#supratherapeutic INR
Cardiology followed
Lasix stopped 2/2 rise in Cr. COnt daily weight and electrolytes. Low sodium diet
Follow INR and adjust Coumadin as needed
#Mild hyponatremia
#JOJO on CKD stage 3b
follow Cr - baseline 1.8
Neprho consult
UOsm elevated
Hold diuretics
started FR 48Oz
#LUE non-occlusive DVT
unclear if scute vs chronic
Hematology evaluated - advised to cont Warfarin
#Cystitc focus on L kidney hilum
US renal neg for possible differential of hydronephrosis
#DJD
tylenol
PT/OT
DVT ppx on Coumadin
DNR/DNI
I have spent at least 59min reviewing chart, test results, communication with consultants and direct patient care
Anticipated Discharge: 24 - 48 hours
Subjective/Interval History
-
Date of Service: August 04, 2024
Objective Data
-
Labs:
Laboratory Results
08/04/24 08/04/24
07:09 09:37
WBC 5.0
Hgb 10.9 L
Hct 31.2 L
Plt Count 135
PT Pending
INR Pending
Sodium 129 L
Potassium 3.5
Chloride 96 L
Carbon Dioxide 22
BUN 62 H
Creatinine 2.1 H
Glucose 92
Calcium 8.7
Vital Signs:
Vital Signs
Temp Pulse Resp BP Pulse Ox
97.4 F 82 18 120/74 99
08/04/24 07:35 08/04/24 07:35 08/04/24 07:35 08/04/24 07:35 08/04/24 07:35
I&O
08/03/24 08/04/24 08/05/24
06:59 06:59 06:59
Intake Total 460 / 460 400 / 400
Output Total 240 / 240
Balance 220 / 220 400 / 400
Review of Systems
-
History Source: Patient
All other systems: Reviewed and negative
Physical Exam
-
General: No Apparent Distress
HEENT: Normocephalic
Cardiac: Irregular Rhythm
GI: Soft, Nontender and Nondistended
Skin: Warm
Neuro: Awake, Alert, Oriented, AO x 3 and Sedated
Psych: Calm and Apparent Dementia
--- NOTE | 2024-08-04 10:15 | PTCARENOTE ---
Refusing lab work. made aware.
[2024-08-04 11:22] VITALS: BP 122/65
[2024-08-04 11:45] LABS: Glucose - Point of Care 123 mg/dl (70-99)
--- NOTE | 2024-08-04 12:06 | W.PN.CD ---
Today's Communication / Plan
-
if Cr stable to improved tomorrow, would start torsemide 40mg daily
holding coumadin for elevated INR
Impression / Plan
-
Altered MS: likely multifactorial
-patient with hyponatremia (improving), elevated ammonia (s/p lactulose), and fever
-primary team, GI consult managing
Acute on chronic HFPEF
-high risk with CKD4
-will aim for 73kg
-IV lasix stopped with rising Cr
-if Cr stable to improved tomorrow, would start torsemide 40mg daily
Permanent A fib
-rate controlled
-continue Toprol 50mg bid
-warfarin for OAC given mechanical MVR
Mechanical MVR:
- NOT A DOAC CANDIDATE DUE TO mechanical MVR
-INR goal 2.5-3.0 (narrower goal due to bleeding in past)
-holding coumadin for elevated INR
axillary vein nonocclusive thrombus - remains on warfarin. hematology consult as noted
Physical Exam
Vital Signs/Labs
Vital Signs
Temp Pulse Resp BP Pulse Ox
97.9 F 86 20 122/65 98
08/04/24 11:22 08/04/24 11:22 08/04/24 11:22 08/04/24 11:22 08/04/24 11:22
08/03/24 08/04/24 08/05/24
06:59 06:59 06:59
Actual Weight 75.041 kg 72.773 kg
08/04/24 07:09
08/04/24 07:09
PT 43.8 Sec (11.4-14.6) H 08/03/24 06:18
INR 4.73 08/03/24 06:18
Magnesium 2.0 mg/dl (1.6-2.3) 07/31/24 23:37
Physical Exam
Constitutional: No acute distress
EENT: Moist mucous membranes
Cardiovascular: Rhythm/rate is irregular, Pedal edema present, JVD present and Systolic murmur present
Respiratory: Respiratory effort normal
Data Reviewed
-
Date of Service: August 04, 2024
EKG: Other (Tele: A fib 70s)
Labs: Labs Reviewed by me
--- NOTE | 2024-08-04 12:23 | W.PN.NEPH.PH ---
Today's Communication / Plan
-
hold lasix
Assessment/Plan
-
Impression:
new onset hepatic encephalopathy
Acute on chr D CHF
Acute kidney injury
CKD stage IIIb with baseline creatinine 1.7
Metabolic acidosis
Permanent Atrial fibrillation on chronic anticoagulation
Hypertension
Diabetes
Valvular heart disease (hx of mechanical valve replacement)
CAD with history of CABG
ICD
Thrombocytopenia
Elevated LFTs
Plan:
follow BMP
off lasix/metolazone for now
can restart torsemide once weight stabilizes and Cr <2
watch po intake
-
-
Date of Service: August 04, 2024
CC / HPI / ROS
-
Chief Complaint:
JOJO
History of Present Illness:
JOJO/Cr down to 2.1
Na low 129
weights lower without lasix
Review of Systems:
no appetite
no CP/SOB
Labs
-
Labs:
WBC 5.0 10^3/uL (4.8-10.8) 08/04/24 07:09
RBC 3.44 10^6/uL (4.20-5.40) L 08/04/24 07:09
Hgb 10.9 g/dL (12.0-16.0) L 08/04/24 07:09
Hct 31.2 % (37.0-47.0) L 08/04/24 07:09
Plt Count 135 10^3/uL (130-400) 08/04/24 07:09
Sodium 129 mmol/L (135-145) L 08/04/24 07:09
Potassium 3.5 mmol/L (3.5-5.1) 08/04/24 07:09
Chloride 96 mmol/L (98-107) L 08/04/24 07:09
Carbon Dioxide 22 mmol/L (22-30) 08/04/24 07:09
BUN 62 mg/dl (7-17) H 08/04/24 07:09
Creatinine 2.1 mg/dL (0.6-1.0) H 08/04/24 07:09
eGFR 23.38 08/04/24 07:09
Glucose 92 mg/dl (70-99) 08/04/24 07:09
Calcium 8.7 mg/dl (8.4-10.2) 08/04/24 07:09
Albumin 3.3 g/dl (3.5-5.0) L 08/01/24 07:29
Physical Exam
-
Vital Signs:
Vital Signs
Temp Pulse Resp BP Pulse Ox
97.9 F 86 20 122/65 98
08/04/24 11:22 08/04/24 11:22 08/04/24 11:22 08/04/24 11:22 08/04/24 11:22
Cardiovascular:: Regular rate and rhythm
Respiratory:: Bilateral: CTA
Lung Excursion:: Normal
Abdomen:: Nontender and Soft
Bowel Sounds:: Normal
Extremity Edema:: None: Bilateral:
[2024-08-04 14:13] LABS: Ammonia 25 umol/L (9-30)
[2024-08-04 14:14] LABS: INR 4.69; PT 43.5 Sec (11.4-14.6)
[2024-08-04 14:46] LABS: ALT (SGPT) 25 U/L (0-35); AST (SGOT) 50 U/L (14-36); Albumin 3.1 g/dl (3.5-5.0); Alkaline Phosphatase 255 U/L (38-126); Direct Bilirubin 0.9 mg/dl (0.0-0.4); Total Bilirubin 1.8 mg/dl (0.2-1.3); Total Protein 5.9 g/dl (6.3-8.2)
[2024-08-04 15:15] VITALS: BP 127/71
[2024-08-04] MEDS: TYLENOL 650 MG PO (15:22)
[2024-08-04 16:43] LABS: Glucose - Point of Care 148 mg/dl (70-99)
[2024-08-04] MEDS: ZYLOPRIM PO (20:38)
--- NOTE | 2024-08-04 20:41 | PTCARENOTE ---
Patient AAOx1 (only to self), very lethargic and drowsy. Patient was able to take PO lactulose mixed with applesauce without problem. Refused all other meds/pills. [employer] aware.
[2024-08-04 21:19] LABS: Glucose - Point of Care 147 mg/dl (70-99)
[2024-08-04 23:19] VITALS: BP 117/65
[2024-08-05 06:00] VITALS: BMI 27.0
[2024-08-05 06:18] LABS: Ammonia 27 umol/L (9-30)
[2024-08-05 06:30] LABS: % Eosinophils 4.6 % (0-6); % Immature Granulocytes 0.4 % (0-0.5); % Lymphocytes 15.4 % (20.5-51.1); % Monocytes 13.9 % (1.7-9.3); % Neutrophils 64.7 % (42.2-75.2); Absolute Basophils 0.1 10^3/uL (0-0.2); Absolute Eosinophils 0.2 10^3/uL (0-0.7); Absolute Lymphocytes 0.7 10^3/uL (1.2-3.4); Absolute Monocytes 0.7 10^3/uL (0.1-0.6); Absolute Neutrophils 3.1 10^3/uL (1.4-6.5); Hematocrit 33.6 % (37.0-47.0); Hemoglobin 11.3 g/dL (12.0-16.0); Mean Corp Hgb Conc. 33.6 g/dL (33.0-37.0); Mean Corpuscular Hgb 31.3 pg (27.0-31.0); Mean Corpuscular Volume 93.1 fL (81.0-99.0); Mean Platelet Volume 12.3 fL (7.4-10.4); Nucleated Red Blood Cells % 0 %; Platelet Count 151 10^3/uL (130-400); Red Blood Cell Count 3.61 10^6/uL (4.20-5.40); Red Cell Dist. Width 19.6 % (11.5-14.5); White Blood Cell Count 4.8 10^3/uL (4.8-10.8)
[2024-08-05 06:36] LABS: INR 4.58; PT 42.7 Sec (11.4-14.6)
[2024-08-05 06:53] LABS: ALT (SGPT) 24 U/L (0-35); AST (SGOT) 50 U/L (14-36); Albumin 3.3 g/dl (3.5-5.0); Alkaline Phosphatase 269 U/L (38-126); Blood Urea Nitrogen 59 mg/dl (7-17); Carbon Dioxide 23 mmol/L (22-30); Chloride 97 mmol/L (98-107); Estimated Creatinine Clearance 24 ml/min; Glucose 119 mg/dl (70-99); Potassium 3.2 mmol/L (3.5-5.1); Sodium 130 mmol/L (135-145); Total Bilirubin 1.7 mg/dl (0.2-1.3); Total Protein 6.1 g/dl (6.3-8.2); eGFR 28.13
[2024-08-05 07:05] VITALS: BP 131/78
[2024-08-05 07:25] LABS: Glucose - Point of Care 106 mg/dl (70-99)
[2024-08-05 07:52] LABS: Magnesium 1.9 mg/dl (1.6-2.3)
[2024-08-05] MEDS: NOVOLOG FLEXPEN-LOW RESISTANCE SC ×2 (08:00→16:50)
[2024-08-05] MEDS: DUPHALAC/CHRONULAC 30 GRAMS PO ×2 (08:56→16:43)
--- NOTE | 2024-08-05 08:58 | W.PN.CD ---
Today's Communication / Plan
-
-IV lasix stopped with rising Cr; creatinine now improving.
-Will resume torsemide 40 mg daily.
-INR remains supratherapeutic at 4.58; Coumadin being held.
Impression / Plan
-
Altered MS: likely multifactorial
-patient with hyponatremia (improving), elevated ammonia (s/p lactulose), and fever
-Management as per primary team.
Acute on chronic HFPEF
-high risk with CKD4
-will aim for 73kg
-IV lasix stopped with rising Cr; creatinine now improving.
-Will resume torsemide 40 mg daily.
Permanent A fib
-Stable.
-continue Toprol 50mg bid
-warfarin for OAC given mechanical MVR
Mechanical MVR:
- NOT A DOAC CANDIDATE DUE TO mechanical MVR
-INR goal 2.5-3.0 (narrower goal due to bleeding in past)
-INR remains supratherapeutic at 4.58; Coumadin being held.
axillary vein nonocclusive thrombus - remains on warfarin. hematology consult as noted
Physical Exam
Vital Signs/Labs
Vital Signs
Temp Pulse Resp BP Pulse Ox
97.8 F 83 17 117/65 97
08/04/24 23:19 08/04/24 23:19 08/04/24 23:19 08/04/24 23:19 08/04/24 23:19
08/04/24 08/05/24 08/06/24
06:59 06:59 06:59
Actual Weight 72.773 kg 71.271 kg
08/05/24 05:57
08/05/24 05:57
PT 42.7 Sec (11.4-14.6) H 08/05/24 05:57
INR 4.58 08/05/24 05:57
Magnesium 1.9 mg/dl (1.6-2.3) 08/05/24 05:57
Physical Exam
Constitutional: No acute distress and Comfortable
EENT: Anicteric
Cardiovascular: Rhythm/rate is irregular, Pedal edema present (trace), Systolic murmur present (soft) and S1S2 is normal
Respiratory: Respiratory effort normal and Rhonchi Present
GI: Soft
Neuro/Psych: Alert
Other: Skin (Warm, dry)
Data Reviewed
-
Date of Service: August 05, 2024
Labs: Labs Reviewed by me
[2024-08-05] MEDS: KCL 40 MEQ PO (08:59)
[2024-08-05] MEDS: ALDACTONE 25 MG PO (09:08)
[2024-08-05] MEDS: SODIUM BICARBONATE 1300 MG PO (09:08)
[2024-08-05] MEDS: MUCINEX PO ×2 (09:12→21:00)
[2024-08-05] MEDS: PROTONIX PO ×2 (09:12→21:01)
[2024-08-05] MEDS: FIBERCON PO (09:13)
[2024-08-05] MEDS: COLACE PO (09:13)
[2024-08-05] MEDS: THERAGRAN PO (09:13)
[2024-08-05] MEDS: FOLVITE PO (09:13)
[2024-08-05] MEDS: FEOSOL PO (09:13)
[2024-08-05] MEDS: XIFAXAN PO ×2 (09:13→21:02)
[2024-08-05] MEDS: TOPROL XL PO ×2 (09:13→20:59)
[2024-08-05] MEDS: DESENEX/MITRAZOL/ZEASORB 1 APPLIC TOPICAL ×2 (09:13→21:02)
[2024-08-05] MEDS: DEMADEX 40 MG PO (09:13)
--- NOTE | 2024-08-05 10:48 | W.PN.HOSP.TC ---
Addendum entered and electronically signed by Prashant Hogan MD 08/05/24 14:21:
#chronic dissection of the abdominal aorta
will discuss with VascSx
poor imaging without contrast. Patient with CKD and accidental finding - questionable benefit from contrast study
Original Note:
Today's Communication/Plan
-
mentation better, took her oral meds
Torsemide restarted, will follow for the rest of BP meds in AM
Lactulose TID oral
follow AM labs
Assessment / Plan
Assessment / Plan
78yo F with PMHx of HFpEF, mechanical MV, TAVR, V.Fib s/p ICD, CAD s/p CABG, RBBB, permanent A.fib, CKD, HTN, Hx of subdural hemorrhage, rectal bleeding, DM, gout brought with fever, confusion, managed for hepatic encephalopathy, most likely 2/2 CHF
and axilary vein non-occlusive thrombus. CT on admission showed colitis of the descending colon and splenic flexure
A/P
#Hepatic encephalopathy
#Chronic elevation of alk.phos
#Chronic transaminitis
on lactulose
follow Ammonia
GI followed: hepatitis panel neg
Liver cirrhosis seen on CT
#Acute respiratory insufficiency with b/l small pleural effusion
#Acute on Chronic HFpEF
#mechanical MV
# s/p TAVR
#Permanent A.finb
#SVT s/p ICD
#supratherapeutic INR
Cardiology followed
Lasix stopped 2/2 rise in Cr. COnt daily weight and electrolytes. Low sodium diet
Follow INR and adjust Coumadin as needed
#Mild hyponatremia
#JOJO on CKD stage 3b - resolved
#Hypokalemia
follow Cr - baseline 1.8
Neprho consult
UOsm elevated
started FR 48Oz
follow and replete electrolytes
#fever on admission
possibly 2/2 DVT
UA neg
no pneumonia on CXR
no abd pain
Bcx neg
COVID-19 and Influenza PCR neg
resolved off Abx
#LUE non-occlusive DVT
unclear if scute vs chronic
Hematology evaluated - advised to cont Warfarin
#Cystitc focus on L kidney hilum
US renal neg for possible differential of hydronephrosis
#DJD
tylenol
PT/OT
DVT ppx on Coumadin
DNR/DNI
I have spent at least 39min reviewing chart, test results, communication with consultants and direct patient care
Anticipated Discharge: > 48 hours
Subjective/Interval History
-
Date of Service: August 05, 2024
Objective Data
-
Labs:
Laboratory Results
08/05/24
05:57
WBC 4.8
Hgb 11.3 L
Hct 33.6 L
Plt Count 151
PT 42.7 H
INR 4.58
Sodium 130 L
Potassium 3.2 L
Chloride 97 L
Carbon Dioxide 23
BUN 59 H
Creatinine 1.8 H
Glucose 119 H
Calcium 9.0
Total Bilirubin 1.7 H
AST 50 H
ALT 24
Alkaline Phosphatase 269 H
Vital Signs:
Vital Signs
Temp Pulse Resp BP Pulse Ox
97.7 F 92 18 131/78 95
08/05/24 07:05 08/05/24 07:05 08/05/24 07:05 08/05/24 07:05 08/05/24 09:00
I&O
08/04/24 08/05/24 08/06/24
06:59 06:59 06:59
Intake Total 400 / 400 120 / 120
Output Total 950 / 950
Balance 400 / 400 -830 / -830
Review of Systems
-
History Source: Patient
All other systems: Reviewed and negative
Constitutional: Reports Weakness
Physical Exam
-
General: No Apparent Distress and Other (significant generalized weakness)
Respiratory: Clear to Auscultation
Cardiac: Regular Rhythm
GI: Soft, Nontender and Distended
Genito-urinary: No Costovertebral Tender
Musculoskeletal: No Clubbing, No Cyanosis and No Edema
Neuro: Awake, Alert, Oriented and AO x 3
Psych: Calm
[2024-08-05 12:01] LABS: Glucose - Point of Care 167 mg/dl (70-99)
[2024-08-05] MEDS: NOVOLOG FLEXPEN-LOW RESISTANCE 1 UNITS SC (12:05)
--- NOTE | 2024-08-05 14:39 | W.PN.NEPH.PH ---
Today's Communication / Plan
-
K
Assessment/Plan
-
Impression:
new onset hepatic encephalopathy
Acute on chr D CHF
Acute kidney injury
CKD stage IIIb with baseline creatinine 1.7
Metabolic acidosis
Permanent Atrial fibrillation on chronic anticoagulation
Hypertension
Diabetes
Valvular heart disease (hx of mechanical valve replacement)
CAD with history of CABG
ICD
Thrombocytopenia
Elevated LFTs
Plan:
follow BMP
back on torsemide
replete K
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
watch po intake
-
-
Date of Service: August 05, 2024
CC / HPI / ROS
-
Chief Complaint:
JOJO
History of Present Illness:
JOJO/Cr down to 1.8
Na low 130
K low 3.2
Review of Systems:
no appetite
no CP/SOB
Labs
-
Labs:
WBC 4.8 10^3/uL (4.8-10.8) 08/05/24 05:57
RBC 3.61 10^6/uL (4.20-5.40) L 08/05/24 05:57
Hgb 11.3 g/dL (12.0-16.0) L 08/05/24 05:57
Hct 33.6 % (37.0-47.0) L 08/05/24 05:57
Plt Count 151 10^3/uL (130-400) 08/05/24 05:57
Sodium 130 mmol/L (135-145) L 08/05/24 05:57
Potassium 3.2 mmol/L (3.5-5.1) L 08/05/24 05:57
Chloride 97 mmol/L (98-107) L 08/05/24 05:57
Carbon Dioxide 23 mmol/L (22-30) 08/05/24 05:57
BUN 59 mg/dl (7-17) H 08/05/24 05:57
Creatinine 1.8 mg/dL (0.6-1.0) H 08/05/24 05:57
eGFR 28.13 08/05/24 05:57
Glucose 119 mg/dl (70-99) H 08/05/24 05:57
Calcium 9.0 mg/dl (8.4-10.2) 08/05/24 05:57
Albumin 3.3 g/dl (3.5-5.0) L 08/05/24 05:57
Physical Exam
-
Vital Signs:
Vital Signs
Temp Pulse Resp BP Pulse Ox
97.7 F 92 18 131/78 95
08/05/24 07:05 08/05/24 07:05 08/05/24 07:05 08/05/24 07:05 08/05/24 09:00
[2024-08-05 15:30] VITALS: BP 142/89
[2024-08-05] MEDS: ZOFRAN 4 MG IV (16:12)
[2024-08-05 16:53] LABS: Glucose - Point of Care 138 mg/dl (70-99)
[2024-08-05] MEDS: KCL PO (21:00)
[2024-08-05] MEDS: SODIUM BICARBONATE PO (21:02)
[2024-08-05] MEDS: ZYLOPRIM PO (21:02)
[2024-08-05] MEDS: DUPHALAC/CHRONULAC PO (21:03)
[2024-08-05 21:23] LABS: Glucose - Point of Care 142 mg/dl (70-99)
--- NOTE | 2024-08-05 22:49 | PTCARENOTE ---
Addendum entered by Britt Kim RN 08/06/24 06:30:
pt had 4 episodes of yellow emesis ~ about 100 cc each. IV zofran given without relief. CHURN OPERATOR made aware, IV compazine ordered and given.
Original Note:
attempts made to give pt ordered medications. pt attempted with apple sauce, but immediately began gagging and spit up meds. pt refused to try again. pt stated she just wanted to get some rest. CHURN OPERATOR made aware. no new orders. plan of care on going.
[2024-08-05 23:28] VITALS: BP 155/91
[2024-08-06] MEDS: ZOFRAN 4 MG IV (00:17)
--- NOTE | 2024-08-06 02:16 | DOWNTIME ---
There was a [employer] Client [employer] Downtime on 08/06/2024 from 0100 to 08/06/2023 at 0205 . Downtime documentation of patient's care, including medication administrations, has been reconciled in the electronic record per guidelines. Refer to the
patient's paper chart under the miscellaneous tab to see printed paper medication records and downtime forms.
[2024-08-06] MEDS: COMPAZINE 5 MG IV (05:38)
[2024-08-06 06:00] VITALS: BMI 26.1
[2024-08-06 06:46] LABS: % Basophils 0.8 % (0-2); % Eosinophils 1.5 % (0-6); % Immature Granulocytes 0.3 % (0-0.5); % Lymphocytes 14.2 % (20.5-51.1); % Monocytes 13.2 % (1.7-9.3); Absolute Basophils 0.1 10^3/uL (0-0.2); Absolute Eosinophils 0.1 10^3/uL (0-0.7); Absolute Lymphocytes 0.8 10^3/uL (1.2-3.4); Absolute Monocytes 0.8 10^3/uL (0.1-0.6); Absolute Neutrophils 4.1 10^3/uL (1.4-6.5); Hematocrit 38.1 % (37.0-47.0); Hemoglobin 12.7 g/dL (12.0-16.0); Mean Corp Hgb Conc. 33.3 g/dL (33.0-37.0); Mean Corpuscular Hgb 30.8 pg (27.0-31.0); Mean Corpuscular Volume 92.5 fL (81.0-99.0); Mean Platelet Volume 10.7 fL (7.4-10.4); Nucleated Red Blood Cells % 0 %; Platelet Count 154 10^3/uL (130-400); Red Blood Cell Count 4.12 10^6/uL (4.20-5.40); Red Cell Dist. Width 20.1 % (11.5-14.5); White Blood Cell Count 5.9 10^3/uL (4.8-10.8)
[2024-08-06 07:00] LABS: INR 3.68; PT 36.3 Sec (11.4-14.6)
[2024-08-06 07:12] LABS: ALT (SGPT) 24 U/L (0-35); AST (SGOT) 56 U/L (14-36); Albumin 3.6 g/dl (3.5-5.0); Alkaline Phosphatase 292 U/L (38-126); Blood Urea Nitrogen 55 mg/dl (7-17); Calcium 9.2 mg/dl (8.4-10.2); Carbon Dioxide 22 mmol/L (22-30); Chloride 97 mmol/L (98-107); Estimated Creatinine Clearance 22 ml/min; Glucose 136 mg/dl (70-99); Potassium 3.7 mmol/L (3.5-5.1); Sodium 133 mmol/L (135-145); Total Protein 6.6 g/dl (6.3-8.2); eGFR 28.13
[2024-08-06 07:32] VITALS: BP 132/81
[2024-08-06 08:08] LABS: Glucose - Point of Care 112 mg/dl (70-99)
[2024-08-06] MEDS: NOVOLOG FLEXPEN-LOW RESISTANCE SC ×2 (09:09→12:22)
[2024-08-06] MEDS: SODIUM BICARBONATE 1300 MG PO ×2 (09:13→20:59)
[2024-08-06] MEDS: XIFAXAN 550 MG PO ×2 (09:13→20:56)
[2024-08-06] MEDS: ALDACTONE 25 MG PO (09:14)
[2024-08-06] MEDS: FOLVITE 0.8 MG PO (09:14)
[2024-08-06] MEDS: FIBERCON PO (09:14)
[2024-08-06] MEDS: FEOSOL PO (09:15)
[2024-08-06] MEDS: TOPROL XL 50 MG PO ×2 (09:15→20:52)
[2024-08-06] MEDS: DUPHALAC/CHRONULAC PO (09:15)
[2024-08-06] MEDS: DEMADEX 40 MG PO (09:15)
[2024-08-06] MEDS: PROTONIX 40 MG PO ×2 (09:16→20:54)
[2024-08-06] MEDS: COLACE 100 MG PO (09:16)
[2024-08-06] MEDS: MUCINEX 600 MG PO (09:16)
[2024-08-06] MEDS: THERAGRAN PO (09:17)
[2024-08-06] MEDS: DESENEX/MITRAZOL/ZEASORB 1 APPLIC TOPICAL ×2 (09:18→21:02)
--- NOTE | 2024-08-06 10:55 | PTCARENOTE ---
Patient refused lactulose. MD aware and ordered lactulose enema. Patient refused enema . MD made aware of refusal. Patient went for US of abdomen. Results pending.
--- NOTE | 2024-08-06 10:58 | W.PN.HOSP.TC ---
Addendum entered and electronically signed by Prashant Hogan MD 08/06/24 11:52:
#chronic dissection of the abdominal aorta
will discuss with VascSx
poor imaging without contrast. Patient with CKD and accidental finding - questionable benefit from contrast study
US abd ordered
Original Note:
Today's Communication/Plan
-
US abd for ascites
possible paracentesis
cont Lactulose
Assessment / Plan
Assessment / Plan
78yo F with PMHx of HFpEF, mechanical MV, TAVR, V.Fib s/p ICD, CAD s/p CABG, RBBB, permanent A.fib, CKD, HTN, Hx of subdural hemorrhage, rectal bleeding, DM, gout brought with fever, confusion, managed for hepatic encephalopathy, most likely 2/2 CHF
and axiliary vein non-occlusive thrombus. CT on admission showed colitis of the descending colon and splenic flexure
Significant deterioration and deconditioning over past few months, discussed poor prognosis with family
A/P
#Hepatic encephalopathy
#Chronic elevation of alk.phos
#Chronic transaminitis
#persistent nausea
on lactulose
follow Ammonia
GI followed: hepatitis panel neg
Liver cirrhosis seen on CT
#Generalized malaise
#fever on admission
possibly 2/2 DVT
UA neg
no pneumonia on CXR
no abd pain
Bcx neg
COVID-19 and Influenza PCR neg
resolved off Abx
US to eval ascites, might need tap
#Acute respiratory insufficiency with b/l small pleural effusion
#Acute on Chronic HFpEF
#mechanical MV
# s/p TAVR
#Permanent A.finb
#SVT s/p ICD
#supratherapeutic INR
Cardiology followed
Lasix stopped 2/2 rise in Cr. Cont daily weight and electrolytes. Low sodium diet
Follow INR and adjust Coumadin as needed
#Mild hyponatremia
#JOJO on CKD stage 3b - resolved
#Hypokalemia
follow Cr - baseline 1.8
Nephro consult
UOsm elevated
started FR 48Oz
follow and replete electrolytes
#fever on admission
possibly 2/2 DVT
UA neg
no pneumonia on CXR
no abd pain
Bcx neg
COVID-19 and Influenza PCR neg
resolved off Abx
#LUE non-occlusive DVT
unclear if scute vs chronic
Hematology evaluated - advised to cont Warfarin
#Cystic focus on L kidney hilum
US renal neg for possible differential of hydronephrosis
#Hx of LGIB
small polyps and hemorrhoids on colonoscopy in Apr 2024
#DJD
tylenol
PT/OT
DVT ppx on Coumadin
DNR/DNI
I have spent at least 59min reviewing chart, test results, communication with consultants and direct patient care
Anticipated Discharge: > 48 hours
Subjective/Interval History
-
Date of Service: August 06, 2024
Objective Data
-
Labs:
Laboratory Results
08/06/24
06:06
WBC 5.9
Hgb 12.7
Hct 38.1
Plt Count 154
PT 36.3 H
INR 3.68
Sodium 133 L
Potassium 3.7
Chloride 97 L
Carbon Dioxide 22
BUN 55 H
Creatinine 1.8 H
Glucose 136 H
Calcium 9.2
Total Bilirubin 2.0 H
AST 56 H
ALT 24
Alkaline Phosphatase 292 H
Vital Signs:
Vital Signs
Temp Pulse Resp BP Pulse Ox
99.2 F 106 18 132/81 98
08/06/24 07:32 08/06/24 07:32 08/06/24 07:32 08/06/24 07:32 08/06/24 07:32
I&O
08/05/24 08/06/24 08/07/24
06:59 06:59 06:59
Intake Total 120 / 120 240 / 240
Output Total 950 / 950 1600 / 1600
Balance -830 / -830 -1360 / -1360
[2024-08-06 12:20] LABS: Glucose - Point of Care 119 mg/dl (70-99)
[2024-08-06] MEDS: KCL 10 MEQ PO (12:24)
--- NOTE | 2024-08-06 12:30 | W.PN.UPDATE ---
Update Note
Progress Note Update
too small ascites for paracentesis
With recent fever, patient not improving malaise - start empiric Abx as reasonable even with absent source. If no improvement in 48h - will d/c and consider hospice with family
--- NOTE | 2024-08-06 12:32 | W.PN.NEPH.PH ---
Today's Communication / Plan
-
Continue torsemide
Assessment/Plan
-
Impression:
new onset hepatic encephalopathy
Acute on chr D CHF
Acute kidney injury
CKD stage IIIb with baseline creatinine 1.7
Metabolic acidosis
Permanent Atrial fibrillation on chronic anticoagulation
Hypertension
Diabetes
Valvular heart disease (hx of mechanical valve replacement)
CAD with history of CABG
ICD
Thrombocytopenia
Elevated LFTs
Plan:
follow BMP
back on torsemide
replete K
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
watch po intake
Creatinine remained stable
-
-
Date of Service: August 06, 2024
CC / HPI / ROS
-
Chief Complaint:
JOJO
History of Present Illness:
JOJO/Cr down to 1.8
Na low 130
K low 3.2
Review of Systems:
no appetite
no CP/SOB
Labs
-
Labs:
WBC 5.9 10^3/uL (4.8-10.8) 08/06/24 06:06
RBC 4.12 10^6/uL (4.20-5.40) L 08/06/24 06:06
Hgb 12.7 g/dL (12.0-16.0) 08/06/24 06:06
Hct 38.1 % (37.0-47.0) 08/06/24 06:06
Plt Count 154 10^3/uL (130-400) 08/06/24 06:06
Sodium 133 mmol/L (135-145) L 08/06/24 06:06
Potassium 3.7 mmol/L (3.5-5.1) 08/06/24 06:06
Chloride 97 mmol/L (98-107) L 08/06/24 06:06
Carbon Dioxide 22 mmol/L (22-30) 08/06/24 06:06
BUN 55 mg/dl (7-17) H 08/06/24 06:06
Creatinine 1.8 mg/dL (0.6-1.0) H 08/06/24 06:06
eGFR 28.13 08/06/24 06:06
Glucose 136 mg/dl (70-99) H 08/06/24 06:06
Calcium 9.2 mg/dl (8.4-10.2) 08/06/24 06:06
Albumin 3.6 g/dl (3.5-5.0) 08/06/24 06:06
Physical Exam
-
Vital Signs:
Vital Signs
Temp Pulse Resp BP Pulse Ox
99.2 F 106 18 132/81 96
08/06/24 07:32 08/06/24 07:32 08/06/24 07:32 08/06/24 07:32 08/06/24 11:14
Respiratory:: Bilateral: CTA
Lung Excursion:: Normal
Abdomen:: Soft
Bowel Sounds:: Normal
Extremity Edema:: None: Bilateral:
Other Findings::
Somnolent
[2024-08-06 12:50] VITALS: BMI 26.1
--- NOTE | 2024-08-06 12:59 | PHA.VAN.IN ---
Assessment
- Assessment
Renal Function: Appears similar to baseline
Concomitant Antimicrobials: cefepime
Plan
- Plan
Initial / Loading Dose: 1500mg
Maintenance Regimen: dosing by level
Monitoring: random 08/07 06
Pharmacokinetics Vancomycin I
- -
Patient Age: 78
Patient Sex: Female
Vancomycin Day #: 1
Indication: Other
Requesting Provider: Dr. Hogan
Pertinent Antimicrobial Allergies:
NKDA
Height / Weight:
Height 5 ft 4 in
Actual Weight 69.031 kg
Pertinent Past Medical History: DM 2, CKD (baseline ~1.7), mechanical MVR (2008)
- Vital Signs / Lab Results
Temp Pulse Resp BP Pulse Ox
99.2 F 106 18 132/81 96
08/06/24 07:32 08/06/24 07:32 08/06/24 07:32 08/06/24 07:32 08/06/24 11:14
Lab Results - Hematology
08/04/24 08/05/24 08/06/24
07:09 05:57 06:06
WBC 5.0 4.8 5.9
Lab Results - Chemistry
08/04/24 08/05/24 08/06/24
07:09 05:57 06:06
BUN 62 H 59 H 55 H
Creatinine 2.1 H 1.8 H 1.8 H
Estimated Creat Clear
Albumin 3.1 L 3.3 L 3.6
Microbiology Results
07/30/24 20:38 Blood Culture - Final
Blood/Venous No Growth - Final Report
07/30/24 20:38 Blood Culture - Final
Blood/Venous No Growth - Final Report
[2024-08-06] MEDS: VANCOCIN 530 MG IV (13:30)
[2024-08-06] MEDS: MAXIPIME 1000 MG IV (14:30)
[2024-08-06] MEDS: STERILE WATER FOR INJECTION 10 ML IV (14:30)
[2024-08-06 15:17] VITALS: BP 142/83
--- NOTE | 2024-08-06 16:42 | CM ---
PT OT ordered by MD .
Pt off floor for evals today.
Appears pt weaned to room air.
Will need to offer VN to pt pending evals determination .
PLAN Home with possible VN
[2024-08-06 16:49] LABS: Glucose - Point of Care 181 mg/dl (70-99)
[2024-08-06] MEDS: NOVOLOG FLEXPEN-LOW RESISTANCE 1 UNITS SC (17:02)
[2024-08-06] MEDS: FLAGYL 500 MG 100 IV (17:06)
--- NOTE | 2024-08-06 17:25 | W.PN.CD ---
Today's Communication / Plan
-
continue torsemide
hold coumadin; trend INR
Impression / Plan
-
Altered MS: likely multifactorial
-patient with hyponatremia (improving), elevated ammonia (s/p lactulose), and fever
-Management as per primary team.
Acute on chronic HFPEF: improved s/p IV lasix
-high risk with CKD4
-below prior dry weight of 73 kg
-hold metolazone
-continue torsemide 40 mg daily, aldactone 25mg daily
Permanent A fib
-Stable.
-continue Toprol 50mg bid
-warfarin for OAC given mechanical MVR
-dose per INR
Mechanical MVR:
- NOT A DOAC CANDIDATE DUE TO mechanical MVR
-INR goal 2.5-3.0 (narrower goal due to bleeding in past)
-INR remains supratherapeutic at 3.68; Coumadin being held.
axillary vein nonocclusive thrombus - remains on warfarin. hematology consult as noted
Physical Exam
Vital Signs/Labs
Vital Signs
Temp Pulse Resp BP Pulse Ox
97.4 F 92 18 142/83 99
08/06/24 15:17 08/06/24 15:17 08/06/24 15:17 08/06/24 15:17 08/06/24 15:17
08/05/24 08/06/24 08/07/24
06:59 06:59 06:59
Actual Weight 71.271 kg 69.031 kg
08/06/24 06:06
08/06/24 06:06
PT 36.3 Sec (11.4-14.6) H 08/06/24 06:06
INR 3.68 08/06/24 06:06
Magnesium 1.9 mg/dl (1.6-2.3) 08/05/24 05:57
Physical Exam
Constitutional: No acute distress
EENT: Moist mucous membranes
Cardiovascular: Rhythm/rate is irregular, Pedal edema present (trace), JVD present and Systolic murmur present
Respiratory: Respiratory effort normal and Lungs clear to auscul.
Neuro/Psych: Other (lethargic, but arousable easily)
Data Reviewed
-
Date of Service: August 06, 2024
Labs: Labs Reviewed by me
[2024-08-06] MEDS: ZYLOPRIM 100 MG PO (20:55)
[2024-08-06] MEDS: MUCINEX PO (21:02)
[2024-08-06 21:24] LABS: Glucose - Point of Care 150 mg/dl (70-99)
--- NOTE | 2024-08-06 22:42 | PTCARENOTE ---
pt able to take most of night time medications whole in water, bigger pills needed to be crushed in applesauce. pt stated she was starting to get nauseous therefore did not want to take anymore medications. plan of care on going
[2024-08-06 23:30] VITALS: BP 145/96
[2024-08-07] MEDS: FLAGYL 500 MG 100 IV ×3 (00:57→15:56)
[2024-08-07] MEDS: STERILE WATER FOR INJECTION 10 ML IV ×2 (01:00→15:55)
[2024-08-07] MEDS: MAXIPIME 1000 MG IV ×2 (01:01→15:00)
[2024-08-07 06:00] VITALS: BMI 26.5
[2024-08-07 06:54] VITALS: BP 121/73
[2024-08-07 07:00] LABS: Hemoglobin 12.4 g/dL (12.0-16.0); Mean Corp Hgb Conc. 33.5 g/dL (33.0-37.0); Mean Corpuscular Volume 92.5 fL (81.0-99.0); Mean Platelet Volume 11.9 fL (7.4-10.4); Platelet Count 171 10^3/uL (130-400); Red Cell Dist. Width 19.7 % (11.5-14.5); White Blood Cell Count 5.6 10^3/uL (4.8-10.8)
[2024-08-07 07:23] LABS: ALT (SGPT) 20 U/L (0-35); AST (SGOT) 54 U/L (14-36); Albumin 3.3 g/dl (3.5-5.0); Alkaline Phosphatase 260 U/L (38-126); Blood Urea Nitrogen 50 mg/dl (7-17); Calcium 8.6 mg/dl (8.4-10.2); Carbon Dioxide 23 mmol/L (22-30); Chloride 94 mmol/L (98-107); Estimated Creatinine Clearance 24 ml/min; Glucose 120 mg/dl (70-99); Potassium 3.6 mmol/L (3.5-5.1); Sodium 128 mmol/L (135-145); Total Bilirubin 2.2 mg/dl (0.2-1.3); Total Protein 6.2 g/dl (6.3-8.2)
[2024-08-07 07:24] LABS: INR 4.18; PT 39.9 Sec (11.4-14.6)
[2024-08-07 07:58] LABS: Vancomycin Random 22.5 ug/ml
[2024-08-07 08:24] LABS: Glucose - Point of Care 111 mg/dl (70-99)
[2024-08-07] MEDS: NOVOLOG FLEXPEN-LOW RESISTANCE SC ×2 (08:51→12:52)
[2024-08-07] MEDS: DEMADEX 40 MG PO (08:55)
[2024-08-07] MEDS: FOLVITE 0.8 MG PO (08:55)
[2024-08-07] MEDS: XIFAXAN 550 MG PO ×2 (08:55→20:53)
[2024-08-07] MEDS: TOPROL XL 50 MG PO ×2 (08:56→22:37)
[2024-08-07] MEDS: ALDACTONE 25 MG PO (08:56)
[2024-08-07] MEDS: MUCINEX 600 MG PO ×2 (08:56→20:53)
[2024-08-07] MEDS: COLACE 100 MG PO (08:56)
[2024-08-07] MEDS: THERAGRAN 1 TABLET PO (08:56)
[2024-08-07] MEDS: FIBERCON 625 MG PO (08:56)
[2024-08-07] MEDS: SODIUM BICARBONATE 1300 MG PO ×2 (08:56→20:53)
[2024-08-07] MEDS: FEOSOL 325 MG PO (08:56)
[2024-08-07] MEDS: PROTONIX 40 MG PO ×2 (08:56→20:53)
[2024-08-07] MEDS: DESENEX/MITRAZOL/ZEASORB 1 APPLIC TOPICAL ×2 (08:57→20:53)
[2024-08-07] MEDS: KCL 10 MEQ PO (08:57)
[2024-08-07 11:19] VITALS: BP 128/78; BP 154/88; PULSE 92; O2SAT 97
[2024-08-07 11:24] VITALS: BP 128/78; BP 154/88; PULSE 95; O2SAT 97
--- NOTE | 2024-08-07 11:31 | W.PN.HOSP.TC ---
Today's Communication/Plan
-
trial of empiric Abx
Labs in AM
Possible d/c in 24-48h
Assessment / Plan
Assessment / Plan
78yo F with PMHx of HFpEF, mechanical MV, TAVR, V.Fib s/p ICD, CAD s/p CABG, RBBB, permanent A.fib, CKD, HTN, Hx of subdural hemorrhage, rectal bleeding, DM, gout brought with fever, confusion, managed for hepatic encephalopathy, most likely 2/2 CHF
and axiliary vein non-occlusive thrombus. CT on admission showed colitis of the descending colon and splenic flexure
Significant deterioration and deconditioning over past few months, discussed poor prognosis with family
A/P
#Hepatic encephalopathy
#Chronic elevation of alk.phos
#Chronic transaminitis
#persistent nausea
on lactulose
follow Ammonia
GI followed: hepatitis panel neg
Liver cirrhosis seen on CT
#Generalized malaise
#fever on admission
possibly 2/2 DVT
UA neg
no pneumonia on CXR
no abd pain
Bcx neg
COVID-19 and Influenza PCR neg
resolved off Abx
US to eval ascites - not sufficient for paracentesis
Empiric Abx - Cefepime, which probably will be switched to oral cefdinir upon d/c, if patient will notice any improvement with her malaise, otherwise - will stop
Vanco stopped with neg MRSA
CHeck COrtisol and TSH
#Acute respiratory insufficiency with b/l small pleural effusion
#Acute on Chronic HFpEF
#mechanical MV
# s/p TAVR
#Permanent A.finb
#SVT s/p ICD
#supratherapeutic INR
Cardiology followed
Lasix stopped 2/2 rise in Cr. Cont daily weight and electrolytes. Low sodium diet
Follow INR and adjust Coumadin as needed
#Mild hyponatremia
#JOJO on CKD stage 3b - resolved
#Hypokalemia
follow Cr - baseline 1.8
Nephro consult
UOsm elevated
started FR 48Oz
follow and replete electrolytes
#fever on admission
possibly 2/2 DVT
UA neg
no pneumonia on CXR
no abd pain
Bcx neg
COVID-19 and Influenza PCR neg
resolved off Abx
#chronic dissection of the abdominal aorta
will discuss with VascSx
poor imaging without contrast. Patient with CKD and accidental finding - questionable benefit from contrast study
US aortha could not be done 2/2 overlying gas
#Ileus on XR
patient with BM, no abd pain, however significant gas
#LUE non-occlusive DVT
unclear if scute vs chronic
Hematology evaluated - advised to cont Warfarin
#Cystic focus on L kidney hilum
US renal neg for possible differential of hydronephrosis
#Transaminitis
#Bilirubinemia
2/2 liver cirrhosis
follow LFT
#Hx of LGIB
small polyps and hemorrhoids on colonoscopy in Apr 2024
#DJD
tylenol
PT/OT
DVT ppx on Coumadin
DNR/DNI
I have spent at least 39min reviewing chart, test results, communication with consultants and direct patient care
Anticipated Discharge: > 48 hours
Subjective/Interval History
-
Date of Service: August 07, 2024
Objective Data
-
Labs:
Laboratory Results
08/07/24
06:07
WBC 5.6
Hgb 12.4
Hct 37.0
Plt Count 171
PT 39.9 H
INR 4.18
Sodium 128 L
Potassium 3.6
Chloride 94 L
Carbon Dioxide 23
BUN 50 H
Creatinine 1.6 H
Glucose 120 H
Calcium 8.6
Total Bilirubin 2.2 H
AST 54 H
ALT 20
Alkaline Phosphatase 260 H
Vital Signs:
Vital Signs
Temp Pulse Resp BP Pulse Ox
97.8 F 90 20 121/73 98
08/07/24 06:54 08/07/24 06:54 08/07/24 06:54 08/07/24 06:54 08/07/24 06:54
I&O
08/06/24 08/07/24 08/08/24
06:59 06:59 06:59
Intake Total 240 / 240 920 / 920
Output Total 1600 / 1600 450 / 450
Balance -1360 / -1360 470 / 470
Review of Systems
-
History Source: Patient
All other systems: Reviewed and negative
Physical Exam
-
General: No Apparent Distress
HEENT: Normocephalic, Atraumatic and Moist Mucous Membranes
Musculoskeletal: No Clubbing, No Cyanosis and No Edema
Skin: Warm
Neuro: Awake, Alert, Oriented and AO x 3
[2024-08-07 12:45] LABS: Glucose - Point of Care 129 mg/dl (70-99)
[2024-08-07 14:29] LABS: Cortisol, Random 24.1 ug/dl; TSH Reflex To Free T4 7.27 uIU/ml (0.47-4.68)
--- NOTE | 2024-08-07 14:50 | W.PN.NEPH.PH ---
Today's Communication / Plan
-
continue diuretics
Assessment/Plan
-
Impression:
new onset hepatic encephalopathy
Acute on chr D CHF
Acute kidney injury
CKD stage IIIb with baseline creatinine 1.7
Metabolic acidosis
Permanent Atrial fibrillation on chronic anticoagulation
Hypertension
Diabetes
Valvular heart disease (hx of mechanical valve replacement)
CAD with history of CABG
ICD
Thrombocytopenia
Elevated LFTs
Plan:
follow BMP
torsemide
replete K
watch po intake
Creatinine remained stable.
Sodium decreased to 128 Stable weights down from admission. Continue to trend. She remains on Aldactone
-
-
Date of Service: August 07, 2024
CC / HPI / ROS
-
Chief Complaint:
JOJO
History of Present Illness:
JOJO/Cr down to 1.8
Na low 130
potassium stable
Review of Systems:
no appetite
no CP/SOB
Labs
-
Labs:
WBC 5.6 10^3/uL (4.8-10.8) 08/07/24 06:07
RBC 4.00 10^6/uL (4.20-5.40) L 08/07/24 06:07
Hgb 12.4 g/dL (12.0-16.0) 08/07/24 06:07
Hct 37.0 % (37.0-47.0) 08/07/24 06:07
Plt Count 171 10^3/uL (130-400) 08/07/24 06:07
Sodium 128 mmol/L (135-145) L 08/07/24 06:07
Potassium 3.6 mmol/L (3.5-5.1) 08/07/24 06:07
Chloride 94 mmol/L (98-107) L 08/07/24 06:07
Carbon Dioxide 23 mmol/L (22-30) 08/07/24 06:07
BUN 50 mg/dl (7-17) H 08/07/24 06:07
Creatinine 1.6 mg/dL (0.6-1.0) H 08/07/24 06:07
eGFR 32.40 08/07/24 06:07
Glucose 120 mg/dl (70-99) H 08/07/24 06:07
Calcium 8.6 mg/dl (8.4-10.2) 08/07/24 06:07
Albumin 3.3 g/dl (3.5-5.0) L 08/07/24 06:07
Physical Exam
-
Vital Signs:
Vital Signs
Temp Pulse Resp BP Pulse Ox
97.8 F 90 20 121/73 97
08/07/24 06:54 08/07/24 06:54 08/07/24 06:54 08/07/24 06:54 08/07/24 07:45
Respiratory:: Bilateral: CTA
Lung Excursion:: Normal
Abdomen:: Soft
Bowel Sounds:: Normal
Extremity Edema:: None: Bilateral:
Other Findings::
Somnolent
[2024-08-07 15:25] VITALS: BP 115/75
[2024-08-07 15:56] LABS: Free T4 1.53 ng/dl (0.78-2.19)
--- NOTE | 2024-08-07 16:38 | CM ---
PT OT indicate SNF .
Spoke with Rene and pt reviewed above .
[facility] .
Referral in care port.
Check SNF referral in am .
PLAN To SNf after located
[2024-08-07 16:49] LABS: Glucose - Point of Care 155 mg/dl (70-99)
--- NOTE | 2024-08-07 17:33 | W.PN.CD ---
Today's Communication / Plan
-
continue torsemide
hold coumadin
Impression / Plan
-
Altered MS: likely multifactorial, and improved
-patient admitted with hyponatremia (improving), elevated ammonia (s/p lactulose), and fever
-Management as per primary team.
Acute on chronic HFPEF: improved s/p IV lasix
-high risk with CKD4
-below prior dry weight of 73 kg
-hold metolazone
-continue torsemide 40 mg daily, aldactone 25mg daily
Permanent A fib
-Stable.
-continue Toprol 50mg bid
-warfarin for OAC given mechanical MVR
-dose per INR: currently on hold
Mechanical MVR:
- NOT A DOAC CANDIDATE DUE TO mechanical MVR
-INR goal 2.5-3.0 (narrower goal due to bleeding in past)
-INR remains supratherapeutic; Coumadin being held.
axillary vein nonocclusive thrombus - remains on warfarin. hematology consult as noted
Physical Exam
Vital Signs/Labs
Vital Signs
Temp Pulse Resp BP Pulse Ox
97.3 F 95 20 115/75 97
08/07/24 15:25 08/07/24 15:25 08/07/24 15:25 08/07/24 15:25 08/07/24 15:25
08/06/24 08/07/24 08/08/24
06:59 06:59 06:59
Actual Weight 69.031 kg 69.938 kg
08/07/24 06:07
08/07/24 06:07
PT 39.9 Sec (11.4-14.6) H 08/07/24 06:07
INR 4.18 08/07/24 06:07
Magnesium 1.9 mg/dl (1.6-2.3) 08/05/24 05:57
Free T4 1.53 ng/dl (0.78-2.19) 08/07/24 06:07
Physical Exam
Constitutional: No acute distress
EENT: Moist mucous membranes
Cardiovascular: Systolic murmur absent, Rhythm/rate is irregular, Pedal edema present and JVD present
Respiratory: Respiratory effort normal and Lungs clear to auscul.
Neuro/Psych: Oriented
Data Reviewed
-
Date of Service: August 07, 2024
Labs: Labs Reviewed by me
[2024-08-07] MEDS: NOVOLOG FLEXPEN-LOW RESISTANCE 1 UNITS SC (17:54)
[2024-08-07] MEDS: ZYLOPRIM 100 MG PO (21:02)
[2024-08-07 21:21] LABS: Glucose - Point of Care 189 mg/dl (70-99)
[2024-08-07 23:30] VITALS: BP 125/94
[2024-08-08] MEDS: FLAGYL 500 MG 100 IV ×3 (01:10→15:49)
[2024-08-08] MEDS: MAXIPIME 1000 MG IV ×2 (01:14→14:49)
[2024-08-08] MEDS: STERILE WATER FOR INJECTION 10 ML IV ×2 (01:14→14:50)
[2024-08-08 06:00] VITALS: BMI 26.2
[2024-08-08 06:03] LABS: % Basophils 0.8 % (0-2); % Eosinophils 3.6 % (0-6); % Immature Granulocytes 0.6 % (0-0.5); % Lymphocytes 13.2 % (20.5-51.1); % Monocytes 10.4 % (1.7-9.3); % Neutrophils 71.4 % (42.2-75.2); Absolute Eosinophils 0.2 10^3/uL (0-0.7); Absolute Lymphocytes 0.7 10^3/uL (1.2-3.4); Absolute Monocytes 0.6 10^3/uL (0.1-0.6); Absolute Neutrophils 3.8 10^3/uL (1.4-6.5); Hematocrit 36.6 % (37.0-47.0); Hemoglobin 12.5 g/dL (12.0-16.0); Mean Corp Hgb Conc. 34.2 g/dL (33.0-37.0); Mean Corpuscular Hgb 30.9 pg (27.0-31.0); Mean Corpuscular Volume 90.6 fL (81.0-99.0); Mean Platelet Volume 10.4 fL (7.4-10.4); Nucleated Red Blood Cells % 0 %; Platelet Count 148 10^3/uL (130-400); Red Blood Cell Count 4.04 10^6/uL (4.20-5.40); Red Cell Dist. Width 18.9 % (11.5-14.5); White Blood Cell Count 5.3 10^3/uL (4.8-10.8)
[2024-08-08 06:13] LABS: INR 3.79
[2024-08-08 06:35] LABS: ALT (SGPT) 18 U/L (0-35); AST (SGOT) 55 U/L (14-36); Albumin 3.3 g/dl (3.5-5.0); Alkaline Phosphatase 231 U/L (38-126); Blood Urea Nitrogen 53 mg/dl (7-17); Calcium 8.3 mg/dl (8.4-10.2); Carbon Dioxide 24 mmol/L (22-30); Chloride 92 mmol/L (98-107); Estimated Creatinine Clearance 24 ml/min; Glucose 118 mg/dl (70-99); Potassium 3.1 mmol/L (3.5-5.1); Sodium 129 mmol/L (135-145); Total Bilirubin 2.4 mg/dl (0.2-1.3); Total Protein 6.1 g/dl (6.3-8.2)
[2024-08-08 07:30] VITALS: BP 129/58
[2024-08-08 08:10] LABS: Glucose - Point of Care 105 mg/dl (70-99)
[2024-08-08] MEDS: NOVOLOG FLEXPEN-LOW RESISTANCE SC ×2 (08:58→13:45)
[2024-08-08] MEDS: FIBERCON 625 MG PO (09:00)
[2024-08-08] MEDS: SODIUM BICARBONATE 1300 MG PO ×2 (09:00→20:13)
[2024-08-08] MEDS: PROTONIX 40 MG PO ×2 (09:00→20:13)
[2024-08-08] MEDS: MUCINEX 600 MG PO ×2 (09:00→20:13)
[2024-08-08] MEDS: TOPROL XL 50 MG PO ×2 (09:01→20:14)
[2024-08-08] MEDS: ALDACTONE 25 MG PO (09:01)
[2024-08-08] MEDS: KCL 10 MEQ PO (09:01)
[2024-08-08] MEDS: DEMADEX 40 MG PO (09:01)
[2024-08-08] MEDS: COLACE 100 MG PO (09:01)
[2024-08-08] MEDS: FEOSOL 325 MG PO (09:02)
[2024-08-08] MEDS: XIFAXAN 550 MG PO ×2 (09:02→20:14)
[2024-08-08] MEDS: FOLVITE 0.8 MG PO (09:02)
[2024-08-08] MEDS: THERAGRAN 1 TABLET PO (09:02)
[2024-08-08] MEDS: DESENEX/MITRAZOL/ZEASORB 1 APPLIC TOPICAL ×2 (09:03→20:20)
--- NOTE | 2024-08-08 10:16 | W.PN.CD ---
Today's Communication / Plan
-
continue torsemide
replete K
trend INR; coumadin on hold
Impression / Plan
-
Altered MS: likely multifactorial, and improved
-patient admitted with hyponatremia (improving), elevated ammonia (s/p lactulose), and fever
-Management as per primary team.
Acute on chronic HFPEF: improved s/p IV lasix
-high risk with CKD4
-below prior dry weight of 73 k-70kg seems to be new dry weight
-hold metolazone
-continue torsemide 40 mg daily, aldactone 25mg daily
Permanent A fib
-Stable.
-continue Toprol 50mg bid
-warfarin for OAC given mechanical MVR
-dose per INR: currently on hold
Mechanical MVR:
- NOT A DOAC CANDIDATE DUE TO mechanical MVR
-INR goal 2.5-3.0 (narrower goal due to bleeding in past)
-INR remains supratherapeutic; Coumadin being held.
axillary vein nonocclusive thrombus - remains on warfarin. hematology consult as noted
Physical Exam
Vital Signs/Labs
Vital Signs
Temp Pulse Resp BP Pulse Ox
97.7 F 90 18 129/58 99
08/08/24 07:30 08/08/24 09:01 08/08/24 07:30 08/08/24 09:01 08/08/24 07:30
08/07/24 08/08/24 08/09/24
06:59 06:59 06:59
Actual Weight 69.938 kg 69.144 kg
08/08/24 05:29
08/08/24 05:29
PT 37.0 Sec (11.4-14.6) H 08/08/24 05:29
INR 3.79 08/08/24 05:29
Magnesium 1.9 mg/dl (1.6-2.3) 08/05/24 05:57
Free T4 1.53 ng/dl (0.78-2.19) 08/07/24 06:07
Physical Exam
Constitutional: No acute distress
EENT: Moist mucous membranes
Cardiovascular: Rhythm/rate is irregular, Pedal edema present, JVD present and Systolic murmur present
Respiratory: Respiratory effort normal
Neuro/Psych: Alert and Oriented
Data Reviewed
-
Date of Service: August 08, 2024
EKG: Other
Labs: Labs Reviewed by me
[2024-08-08 11:00] VITALS: BP 133/78
[2024-08-08] MEDS: KCL 40 MEQ PO (11:01)
--- NOTE | 2024-08-08 11:21 | W.PN.HOSP.TC ---
Today's Communication/Plan
-
cont to hold coumadin
labs in AM
possible d/c in AM if labs improving
Assessment / Plan
Assessment / Plan
78yo F with PMHx of HFpEF, mechanical MV, TAVR, V.Fib s/p ICD, CAD s/p CABG, RBBB, permanent A.fib, CKD, HTN, Hx of subdural hemorrhage, rectal bleeding, DM, gout brought with fever, confusion, managed for hepatic encephalopathy, most likely 2/2 CHF
and axiliary vein non-occlusive thrombus. CT on admission showed colitis of the descending colon and splenic flexure. Much improved with lactulose, diuresis and empiric Abx
Significant deterioration and deconditioning over past few months, discussed poor prognosis with family
A/P
#Hepatic encephalopathy
#Chronic elevation of alk.phos
#Chronic transaminitis
#persistent nausea
on lactulose
follow Ammonia
GI followed: hepatitis panel neg
Liver cirrhosis seen on CT
#Colitis on admission
mentation also improved with Abx
plan 7 days oral upon d/c - cefdinir/metronidazole as patient responded to current therapy and benefit overweight the risk - discussed and agreed with family
#Generalized malaise
#fever on admission
possibly 2/2 DVT
UA neg
no pneumonia on CXR
no abd pain
Bcx neg
COVID-19 and Influenza PCR neg
resolved off Abx
US to eval ascites - not sufficient for paracentesis
Vanco stopped with neg MRSA
CHeck COrtisol and TSH
#Acute respiratory insufficiency with b/l small pleural effusion
#Acute on Chronic HFpEF
#mechanical MV
# s/p TAVR
#Permanent A.finb
#SVT s/p ICD
#supratherapeutic INR
Cardiology followed
Lasix stopped 2/2 rise in Cr. Cont daily weight and electrolytes. Low sodium diet
Follow INR and adjust Coumadin as needed
#Mild hyponatremia
#JOJO on CKD stage 3b - resolved
#Hypokalemia
follow Cr - baseline 1.8
Nephro consult
UOsm elevated
started FR 48Oz
follow and replete electrolytes
#fever on admission
possibly 2/2 DVT
UA neg
no pneumonia on CXR
no abd pain
Bcx neg
COVID-19 and Influenza PCR neg
resolved off Abx
#chronic dissection of the abdominal aorta
will discuss with VascSx
poor imaging without contrast. Patient with CKD and accidental finding - questionable benefit from contrast study
US aortha could not be done 2/2 overlying gas
#Ileus on XR
patient with BM, no abd pain, however significant gas
#LUE non-occlusive DVT
unclear if scute vs chronic
Hematology evaluated - advised to cont Warfarin
#Cystic focus on L kidney hilum
US renal neg for possible differential of hydronephrosis
#Transaminitis
#Bilirubinemia
2/2 liver cirrhosis
follow LFT
#Hx of LGIB
small polyps and hemorrhoids on colonoscopy in Apr 2024
#DJD
tylenol
PT/OT
DVT ppx on Coumadin
DNR/DNI
I have spent at least 39min reviewing chart, test results, communication with consultants and direct patient care
Anticipated Discharge: Within 24 hours
Subjective/Interval History
-
Date of Service: August 08, 2024
Objective Data
-
Labs:
Laboratory Results
08/08/24
05:29
WBC 5.3
Hgb 12.5
Hct 36.6 L
Plt Count 148
PT 37.0 H
INR 3.79
Sodium 129 L
Potassium 3.1 L
Chloride 92 L
Carbon Dioxide 24
BUN 53 H
Creatinine 1.6 H
Glucose 118 H
Calcium 8.3 L
Total Bilirubin 2.4 H
AST 55 H
ALT 18
Alkaline Phosphatase 231 H
Vital Signs:
Vital Signs
Temp Pulse Resp BP Pulse Ox
97.7 F 90 18 129/58 99
08/08/24 07:30 08/08/24 09:01 08/08/24 07:30 08/08/24 09:01 08/08/24 07:30
I&O
08/07/24 08/08/24 08/09/24
06:59 06:59 06:59
Intake Total 920 / 920 520 / 520 240 / 240
Output Total 450 / 450 1550 / 1550
Balance 470 / 470 -1030 / -1030 240 / 240
Review of Systems
-
History Source: Patient
All other systems: Reviewed and negative
Physical Exam
-
General: Comfortable
Respiratory: Clear to Auscultation
Cardiac: Regular Rhythm
GI: Soft, Nontender and Distended
Skin: Warm
Neuro: Awake, Alert, Oriented and AO x 3
Psych: Calm
[2024-08-08 11:36] LABS: Glucose - Point of Care 177 mg/dl (70-99)
--- NOTE | 2024-08-08 11:52 | W.PN.NEPH.PH ---
Today's Communication / Plan
-
follow BMP
Assessment/Plan
-
Impression:
new onset hepatic encephalopathy
Acute on chr D CHF
Acute kidney injury
CKD stage IIIb with baseline creatinine 1.7
Metabolic acidosis
Permanent Atrial fibrillation on chronic anticoagulation
Hypertension
Diabetes
Valvular heart disease (hx of mechanical valve replacement)
CAD with history of CABG
ICD
Thrombocytopenia
Elevated LFTs
Plan:
follow BMP
torsemide continues
replete K
watch po intake
prognosis is poor
-
-
Date of Service: August 08, 2024
CC / HPI / ROS
-
Chief Complaint:
JOJO
History of Present Illness:
JOJO/Cr down to 1.6 stable
Na low 129
K low 3.1
BP stable
Review of Systems:
poor appetite
no CP/SOB
Labs
-
Labs:
WBC 5.3 10^3/uL (4.8-10.8) 08/08/24 05:29
RBC 4.04 10^6/uL (4.20-5.40) L 08/08/24 05:29
Hgb 12.5 g/dL (12.0-16.0) 08/08/24 05:29
Hct 36.6 % (37.0-47.0) L 08/08/24 05:29
Plt Count 148 10^3/uL (130-400) 08/08/24 05:29
Sodium 129 mmol/L (135-145) L 08/08/24 05:29
Potassium 3.1 mmol/L (3.5-5.1) L 08/08/24 05:29
Chloride 92 mmol/L (98-107) L 08/08/24 05:29
Carbon Dioxide 24 mmol/L (22-30) 08/08/24 05:29
BUN 53 mg/dl (7-17) H 08/08/24 05:29
Creatinine 1.6 mg/dL (0.6-1.0) H 08/08/24 05:29
eGFR 32.40 08/08/24 05:29
Glucose 118 mg/dl (70-99) H 08/08/24 05:29
Calcium 8.3 mg/dl (8.4-10.2) L 08/08/24 05:29
Albumin 3.3 g/dl (3.5-5.0) L 08/08/24 05:29
Physical Exam
-
Vital Signs:
Vital Signs
Temp Pulse Resp BP Pulse Ox
97.7 F 90 18 129/58 99
08/08/24 07:30 08/08/24 09:01 08/08/24 07:30 08/08/24 09:01 08/08/24 07:30
Cardiovascular:: Regular rate and rhythm
Respiratory:: Bilateral: Coarse
Lung Excursion:: Normal
Abdomen:: Nontender and Soft
Bowel Sounds:: Normal
Extremity Edema:: +1: Bilateral:
[2024-08-08 13:45] LABS: Glucose - Point of Care 127 mg/dl (70-99)
[2024-08-08 14:35] VITALS: BP 114/59; PULSE 92; O2SAT 99
[2024-08-08 15:20] VITALS: BP 113/68
--- NOTE | 2024-08-08 16:18 | CM ---
Sonia at [facility] called back she said their was a bed available tomorrow.
Informed pt and .
Pt will need ambulance set up .
[facility]
report [phone]
fax [phone]
PLAN To [facility] 08/09/24
[2024-08-08 17:13] LABS: Glucose - Point of Care 189 mg/dl (70-99)
[2024-08-08] MEDS: NOVOLOG FLEXPEN-LOW RESISTANCE 1 UNITS SC (17:27)
[2024-08-08] MEDS: KCL 20 MEQ PO (20:13)
[2024-08-08 21:29] LABS: Glucose - Point of Care 162 mg/dl (70-99)
[2024-08-08] MEDS: ZYLOPRIM 100 MG PO (22:25)
[2024-08-08 23:12] VITALS: BP 119/75
[2024-08-09 00:12] VITALS: BP 119/75
[2024-08-09] MEDS: STERILE WATER FOR INJECTION 10 ML IV ×2 (01:51→13:06)
[2024-08-09] MEDS: FLAGYL 500 MG 100 IV ×2 (01:51→09:27)
[2024-08-09] MEDS: MAXIPIME 1000 MG IV ×2 (01:52→13:08)
[2024-08-09] MEDS: FLUSH (NSS) 1 FLUSH IV (01:52)
[2024-08-09 06:00] VITALS: BMI 26.0
[2024-08-09 07:28] LABS: Glucose - Point of Care 116 mg/dl (70-99)
[2024-08-09 07:29] LABS: INR 3.66; PT 36.1 Sec (11.4-14.6)
[2024-08-09 07:30] VITALS: BP 121/68
[2024-08-09] MEDS: NOVOLOG FLEXPEN-LOW RESISTANCE SC ×3 (07:34→17:20)
[2024-08-09 08:02] LABS: ALT (SGPT) 18 U/L (0-35); AST (SGOT) 58 U/L (14-36); Albumin 3.2 g/dl (3.5-5.0); Alkaline Phosphatase 222 U/L (38-126); Blood Urea Nitrogen 54 mg/dl (7-17); Calcium 8.4 mg/dl (8.4-10.2); Carbon Dioxide 24 mmol/L (22-30); Chloride 92 mmol/L (98-107); Estimated Creatinine Clearance 22 ml/min; Glucose 115 mg/dl (70-99); Magnesium 1.4 mg/dl (1.6-2.3); Potassium 3.6 mmol/L (3.5-5.1); Sodium 129 mmol/L (135-145); Total Bilirubin 2.1 mg/dl (0.2-1.3); Total Protein 5.9 g/dl (6.3-8.2); eGFR 28.13
[2024-08-09] MEDS: MUCINEX 600 MG PO ×2 (09:29→19:31)
[2024-08-09] MEDS: PROTONIX 40 MG PO ×2 (09:29→19:31)
[2024-08-09] MEDS: XIFAXAN 550 MG PO ×2 (09:29→19:31)
[2024-08-09] MEDS: SODIUM BICARBONATE 1300 MG PO ×2 (09:29→19:31)
[2024-08-09] MEDS: ALDACTONE 25 MG PO (09:29)
[2024-08-09] MEDS: COLACE 100 MG PO (09:30)
[2024-08-09] MEDS: DEMADEX 40 MG PO (09:30)
[2024-08-09] MEDS: FEOSOL 325 MG PO (09:30)
[2024-08-09] MEDS: FOLVITE 0.8 MG PO (09:30)
[2024-08-09] MEDS: TOPROL XL 50 MG PO ×2 (09:30→19:31)
[2024-08-09] MEDS: FIBERCON 625 MG PO (09:30)
[2024-08-09] MEDS: THERAGRAN 1 TABLET PO (09:30)
[2024-08-09] MEDS: KCL 20 MEQ PO ×2 (09:30→19:31)
[2024-08-09] MEDS: DESENEX/MITRAZOL/ZEASORB 1 APPLIC TOPICAL ×2 (09:31→19:32)
[2024-08-09] MEDS: MAGNESIUM SULFATE 100 IV (10:35)
--- NOTE | 2024-08-09 11:10 | W.PN.NEPH.PH ---
Today's Communication / Plan
-
Follow BMP
Assessment/Plan
-
Impression:
new onset hepatic encephalopathy
Acute on chr D CHF
Acute kidney injury
CKD stage IIIb with baseline creatinine 1.7
Metabolic acidosis
Permanent Atrial fibrillation on chronic anticoagulation
Hypertension
Diabetes
Valvular heart disease (hx of mechanical valve replacement)
CAD with history of CABG
ICD
Thrombocytopenia
Elevated LFTs
Plan:
follow BMP
torsemide continues
replete K as needed
Appears much improved today
-
-
Date of Service: August 09, 2024
CC / HPI / ROS
-
Chief Complaint:
JOJO
History of Present Illness:
JOJO/Cr 1.6 and stable
Na low 129 stable
K 3.6
BP stable
Review of Systems:
Eating better
no CP/SOB
Labs
-
Labs:
WBC 5.3 10^3/uL (4.8-10.8) 08/08/24 05:29
RBC 4.04 10^6/uL (4.20-5.40) L 08/08/24 05:29
Hgb 12.5 g/dL (12.0-16.0) 08/08/24 05:29
Hct 36.6 % (37.0-47.0) L 08/08/24 05:29
Plt Count 148 10^3/uL (130-400) 08/08/24 05:29
Sodium 129 mmol/L (135-145) L 08/09/24 06:30
Potassium 3.6 mmol/L (3.5-5.1) 08/09/24 06:30
Chloride 92 mmol/L (98-107) L 08/09/24 06:30
Carbon Dioxide 24 mmol/L (22-30) 08/09/24 06:30
BUN 54 mg/dl (7-17) H 08/09/24 06:30
Creatinine 1.8 mg/dL (0.6-1.0) H 08/09/24 06:30
eGFR 28.13 08/09/24 06:30
Glucose 115 mg/dl (70-99) H 08/09/24 06:30
Calcium 8.4 mg/dl (8.4-10.2) 08/09/24 06:30
Albumin 3.2 g/dl (3.5-5.0) L 08/09/24 06:30
Physical Exam
-
Vital Signs:
Vital Signs
Temp Pulse Resp BP Pulse Ox
97.4 F 78 16 121/68 97
08/09/24 07:30 08/09/24 09:29 08/09/24 07:30 08/09/24 09:29 08/09/24 07:30
Cardiovascular:: Regular rate and rhythm
Respiratory:: Bilateral: Coarse
Lung Excursion:: Normal
Abdomen:: Nontender and Soft
Bowel Sounds:: Normal
Extremity Edema:: None: Bilateral:
[2024-08-09 12:40] LABS: Glucose - Point of Care 217 mg/dl (70-99)
--- NOTE | 2024-08-09 12:49 | W.PN.CD ---
Today's Communication / Plan
-
continue torsemide 40 mg daily, aldactone 25mg daily
hold coumadin
trend INR
Impression / Plan
-
Altered MS: likely multifactorial, and improved
-patient admitted with hyponatremia (improving), elevated ammonia (s/p lactulose), and fever
-Management as per primary team.
Acute on chronic HFPEF: improved s/p IV lasix
-high risk with CKD4
-below prior dry weight of 73 kkg seems to be new dry weight
-hold metolazone
-continue torsemide 40 mg daily, aldactone 25mg daily
Permanent A fib
-Stable.
-continue Toprol 50mg bid
-warfarin for OAC given mechanical MVR
-dose per INR: currently on hold
Mechanical MVR:
- NOT A DOAC CANDIDATE DUE TO mechanical MVR
-INR goal 2.5-3.0 (narrower goal due to bleeding in past)
-INR remains supratherapeutic; Coumadin being held.
axillary vein nonocclusive thrombus - remains on warfarin. hematology consult as noted
Physical Exam
Vital Signs/Labs
Vital Signs
Temp Pulse Resp BP Pulse Ox
97.4 F 78 16 121/68 97
08/09/24 07:30 08/09/24 09:29 08/09/24 07:30 08/09/24 09:29 08/09/24 07:30
08/08/24 08/09/24 08/10/24
06:59 06:59 06:59
Actual Weight 69.144 kg 68.748 kg
08/08/24 05:29
08/09/24 06:30
PT 36.1 Sec (11.4-14.6) H 08/09/24 06:30
INR 3.66 08/09/24 06:30
Magnesium 1.4 mg/dl (1.6-2.3) L 08/09/24 06:30
Free T4 1.53 ng/dl (0.78-2.19) 08/07/24 06:07
Physical Exam
Constitutional: No acute distress
EENT: Moist mucous membranes
Cardiovascular: Rhythm/rate is irregular, Pedal edema present (trace), JVD present and Systolic murmur present
Respiratory: Respiratory effort normal
Neuro/Psych: Alert
Data Reviewed
-
Date of Service: August 09, 2024
EKG: Other
Labs: Labs Reviewed by me
--- NOTE | 2024-08-09 13:24 | W.PN.HOSP.TC ---
Today's Communication/Plan
-
follow BMP on torsemide, plan to d/c if continues to improve
Assessment / Plan
Assessment / Plan
78yo F with PMHx of HFpEF, mechanical MV, TAVR, V.Fib s/p ICD, CAD s/p CABG, RBBB, permanent A.fib, CKD, HTN, Hx of subdural hemorrhage, rectal bleeding, DM, gout brought with fever, confusion, managed for hepatic encephalopathy, most likely 2/2 CHF
and axiliary vein non-occlusive thrombus. CT on admission showed colitis of the descending colon and splenic flexure. Much improved with lactulose, diuresis and Abx for colitis
Significant deterioration and deconditioning over past few months, discussed poor prognosis with family
A/P
#Hepatic encephalopathy
#Chronic elevation of alk.phos
#Chronic transaminitis
#persistent nausea
on lactulose
follow Ammonia
GI followed: hepatitis panel neg
Liver cirrhosis seen on CT
#Colitis on admission
mentation also improved with Abx
plan 7 days oral upon d/c - cefdinir/metronidazole as patient responded to current therapy and benefit overweight the risk - discussed and agreed with family
#Generalized malaise
#fever on admission
possibly 2/2 DVT
UA neg
no pneumonia on CXR
no abd pain
Bcx neg
COVID-19 and Influenza PCR neg
resolved off Abx
US to eval ascites - not sufficient for paracentesis
Vanco stopped with neg MRSA
COrtisol and TSH WNL
#Acute respiratory insufficiency with b/l small pleural effusion
#Acute on Chronic HFpEF
#mechanical MV
# s/p TAVR
#Permanent A.finb
#SVT s/p ICD
#supratherapeutic INR
Cardiology followed
Lasix stopped 2/2 rise in Cr. Cont daily weight and electrolytes. Low sodium diet
Follow INR and adjust Coumadin as needed
#Mild hyponatremia
#JOJO on CKD stage 3b - resolved
#Hypokalemia
follow Cr - baseline 1.8
Nephro consult
UOsm elevated
started FR 48Oz
follow and replete electrolytes
#fever on admission
UA neg
no pneumonia on CXR
no abd pain
Bcx neg
COVID-19 and Influenza PCR neg
resolved off Abx
#chronic dissection of the abdominal aorta
will discuss with VascSx
poor imaging without contrast. Patient with CKD and accidental finding - questionable benefit from contrast study
US aortha could not be done 2/2 overlying gas
#Ileus on XR
patient with BM, no abd pain, however significant gas
#LUE non-occlusive DVT
unclear if scute vs chronic
Hematology evaluated - advised to cont Warfarin
#Cystic focus on L kidney hilum
US renal neg for possible differential of hydronephrosis
#Transaminitis
#Bilirubinemia
2/2 liver cirrhosis
follow LFT
#Hx of LGIB
small polyps and hemorrhoids on colonoscopy in Apr 2024
#DJD
tylenol
PT/OT
DVT ppx on Coumadin
DNR/DNI
I have spent at least 39min reviewing chart, test results, communication with consultants and direct patient care
Anticipated Discharge: Within 24 hours
Subjective/Interval History
-
Date of Service: August 09, 2024
Objective Data
-
Labs:
Laboratory Results
08/09/24
06:30
PT 36.1 H
INR 3.66
Sodium 129 L
Potassium 3.6
Chloride 92 L
Carbon Dioxide 24
BUN 54 H
Creatinine 1.8 H
Glucose 115 H
Calcium 8.4
Total Bilirubin 2.1 H
AST 58 H
ALT 18
Alkaline Phosphatase 222 H
Vital Signs:
Vital Signs
Temp Pulse Resp BP Pulse Ox
97.4 F 78 16 121/68 97
08/09/24 07:30 08/09/24 09:29 08/09/24 07:30 08/09/24 09:29 08/09/24 07:30
I&O
08/08/24 08/09/24 08/10/24
06:59 06:59 06:59
Intake Total 520 / 520 1040 / 1040
Output Total 1550 / 1550 1250 / 1250 750 / 750
Balance -1030 / -1030 -210 / -210 -750 / -750
Review of Systems
-
History Source: Patient
All other systems: Reviewed and negative
Physical Exam
-
General: Comfortable
HEENT: Normocephalic
Cardiac: Regular Rhythm
GI: Soft and Nontender
Musculoskeletal: No Clubbing, No Cyanosis and No Edema
Neuro: Awake, Alert, Oriented and AO x 3
Psych: Calm
[2024-08-09 15:33] VITALS: BP 121/70
[2024-08-09] MEDS: FLAGYL 500 MG PO (16:15)
[2024-08-09 17:13] LABS: Glucose - Point of Care 125 mg/dl (70-99)
[2024-08-09 21:44] LABS: Glucose - Point of Care 184 mg/dl (70-99)
[2024-08-09] MEDS: ZYLOPRIM 100 MG PO (21:48)
[2024-08-09 23:37] VITALS: BP 102/59
[2024-08-10] MEDS: STERILE WATER FOR INJECTION 10 ML IV ×2 (01:16→14:31)
[2024-08-10] MEDS: MAXIPIME 1000 MG IV ×2 (01:17→14:30)
[2024-08-10] MEDS: FLAGYL PO (01:17)
[2024-08-10 06:00] VITALS: BMI 25.5
[2024-08-10 07:16] VITALS: BP 109/76
[2024-08-10 08:04] LABS: Glucose - Point of Care 107 mg/dl (70-99)
[2024-08-10 08:16] VITALS: BP 109/76
[2024-08-10 08:27] LABS: INR 3.15; PT 32.2 Sec (11.4-14.6)
[2024-08-10] MEDS: NOVOLOG FLEXPEN-LOW RESISTANCE SC (08:43)
[2024-08-10 08:48] LABS: Blood Urea Nitrogen 54 mg/dl (7-17); Carbon Dioxide 28 mmol/L (22-30); Chloride 92 mmol/L (98-107); Estimated Creatinine Clearance 23 ml/min; Glucose 108 mg/dl (70-99); Magnesium 2.4 mg/dl (1.6-2.3); Potassium 3.6 mmol/L (3.5-5.1); Sodium 131 mmol/L (135-145); eGFR 30.13
[2024-08-10] MEDS: FEOSOL 325 MG PO (09:57)
[2024-08-10] MEDS: DEMADEX 40 MG PO (09:57)
[2024-08-10] MEDS: COLACE 100 MG PO (09:57)
[2024-08-10] MEDS: ALDACTONE 25 MG PO (09:57)
[2024-08-10] MEDS: SODIUM BICARBONATE 1300 MG PO (09:58)
[2024-08-10] MEDS: PROTONIX 40 MG PO (09:58)
[2024-08-10] MEDS: KCL 20 MEQ PO (09:58)
[2024-08-10] MEDS: FLAGYL 500 MG PO ×2 (09:58→17:02)
[2024-08-10] MEDS: FOLVITE 0.8 MG PO (09:58)
[2024-08-10] MEDS: FIBERCON 625 MG PO (09:58)
[2024-08-10] MEDS: XIFAXAN 550 MG PO (09:58)
[2024-08-10] MEDS: THERAGRAN 1 TABLET PO (09:58)
[2024-08-10] MEDS: TOPROL XL 50 MG PO (09:58)
[2024-08-10] MEDS: MUCINEX 600 MG PO (09:58)
[2024-08-10] MEDS: DESENEX/MITRAZOL/ZEASORB 1 APPLIC TOPICAL (09:59)
--- NOTE | 2024-08-10 11:25 | W.PN.CD ---
Today's Communication / Plan
-
resume coumadin at 1.5mg qPM and trend INR
continue torsemide 40 mg daily, aldactone 25mg daily, Kcl 20mEq bid
-metolazone 5mg will be prn
continue Toprol 50mg bid
Impression / Plan
-
Altered MS: likely multifactorial, and improved
-patient admitted with hyponatremia (improving), elevated ammonia (s/p lactulose), and fever
-Management as per primary team.
Acute on chronic HFPEF: improved s/p IV lasix
-high risk with CKD4
-below prior dry weight of 73 kkg seems to be new dry weight
-continue torsemide 40 mg daily, aldactone 25mg daily, Kcl 20mEq bid
-metolazone 5mg will be prn
Permanent A fib
-Stable.
-continue Toprol 50mg bid
-warfarin for OAC given mechanical MVR
Mechanical MVR:
- NOT A DOAC CANDIDATE DUE TO mechanical MVR
-INR goal 2.5-3.0 (narrower goal due to bleeding in past)
-INR trending down: resume coumadin at 1.5mg qPM
axillary vein nonocclusive thrombus - remains on warfarin. hematology consult as noted
Physical Exam
Vital Signs/Labs
Vital Signs
Temp Pulse Resp BP Pulse Ox
97.7 F 92 15 109/76 97
08/10/24 07:16 08/10/24 07:16 08/10/24 07:16 08/10/24 07:16 08/10/24 07:16
08/09/24 08/10/24 08/11/24
06:59 06:59 06:59
Actual Weight 68.748 kg 67.273 kg
08/08/24 05:29
08/10/24 07:39
PT 32.2 Sec (11.4-14.6) H 08/10/24 07:39
INR 3.15 08/10/24 07:39
Magnesium 2.4 mg/dl (1.6-2.3) H 08/10/24 07:39
Free T4 1.53 ng/dl (0.78-2.19) 08/07/24 06:07
Physical Exam
Constitutional: No acute distress
EENT: Moist mucous membranes
Cardiovascular: Rhythm/rate is irregular, Pedal edema present (trace), JVD present and Other (+mechanical valve click)
Respiratory: Respiratory effort normal
Neuro/Psych: Alert and Oriented
Data Reviewed
-
Date of Service: August 10, 2024
Labs: Labs Reviewed by me
--- NOTE | 2024-08-10 11:26 | W.PN.HOSP.TC ---
Today's Communication/Plan
-
dc
Assessment / Plan
Assessment / Plan
78yo F with PMHx of HFpEF, mechanical MV, TAVR, V.Fib s/p ICD, CAD s/p CABG, RBBB, permanent A.fib, CKD, HTN, Hx of subdural hemorrhage, rectal bleeding, DM, gout brought with fever, confusion, managed for hepatic encephalopathy, most likely 2/2 CHF
and axiliary vein non-occlusive thrombus. CT on admission showed colitis of the descending colon and splenic flexure. Much improved with lactulose, diuresis and Abx for colitis. Sodium improved on diuretics. MEdcially stable for d/c. As agreed with
cardiology - restart Coumadin 1.5mg daily with INR in 2-3 days forwarded to office
Significant deterioration and deconditioning over past few months, discussed poor prognosis with family
A/P
#Hepatic encephalopathy
#Chronic elevation of alk.phos
#Chronic transaminitis
#persistent nausea
on lactulose
follow Ammonia
GI followed: hepatitis panel neg
Liver cirrhosis seen on CT
#Colitis on admission
mentation also improved with Abx
plan 7 days oral upon d/c - cefdinir/metronidazole as patient responded to current therapy and benefit overweight the risk - discussed and agreed with family
#Generalized malaise
#fever on admission
possibly 2/2 DVT
UA neg
no pneumonia on CXR
no abd pain
Bcx neg
COVID-19 and Influenza PCR neg
resolved off Abx
US to eval ascites - not sufficient for paracentesis
Vanco stopped with neg MRSA
COrtisol and TSH WNL
#Acute respiratory insufficiency with b/l small pleural effusion
#Acute on Chronic HFpEF
#mechanical MV
# s/p TAVR
#Permanent A.finb
#SVT s/p ICD
#supratherapeutic INR
Cardiology followed
Lasix stopped 2/2 rise in Cr. Cont daily weight and electrolytes. Low sodium diet
Follow INR and adjust Coumadin as needed
#Mild hyponatremia
#JOJO on CKD stage 3b - resolved
#Hypokalemia
follow Cr - baseline 1.8
Nephro consult
UOsm elevated
started FR 48Oz
follow and replete electrolytes
#fever on admission
UA neg
no pneumonia on CXR
no abd pain
Bcx neg
COVID-19 and Influenza PCR neg
resolved off Abx
#chronic dissection of the abdominal aorta
will discuss with VascSx: poor imaging without contrast. Patient with CKD and accidental finding - questionable benefit from contrast study
US aorta could not be done 2/2 overlying gas
Outpatient VascSx
#Ileus on XR
patient with BM, no abd pain, however significant gas
#LUE non-occlusive DVT
unclear if scute vs chronic
Hematology evaluated - advised to cont Warfarin
#Cystic focus on L kidney hilum
US renal neg for possible differential of hydronephrosis
#Transaminitis
#Bilirubinemia
2/2 liver cirrhosis
follow LFT
#Hx of LGIB
small polyps and hemorrhoids on colonoscopy in Apr 2024
#DJD
tylenol
PT/OT
DVT ppx on Coumadin
DNR/DNI
I have spent at least 39min reviewing chart, test results, communication with consultants and direct patient care
Anticipated Discharge: Today
Subjective/Interval History
-
Date of Service: August 10, 2024
Objective Data
-
Labs:
Laboratory Results
08/10/24
07:39
PT 32.2 H
INR 3.15
Sodium 131 L
Potassium 3.6
Chloride 92 L
Carbon Dioxide 28
BUN 54 H
Creatinine 1.7 H
Glucose 108 H
Calcium 9.0
Vital Signs:
Vital Signs
Temp Pulse Resp BP Pulse Ox
97.7 F 92 15 109/76 97
08/10/24 07:16 08/10/24 07:16 08/10/24 07:16 08/10/24 07:16 08/10/24 07:16
I&O
08/09/24 08/10/24 08/11/24
06:59 06:59 06:59
Intake Total 1040 / 1040 560 / 560 240 / 240
Output Total 1250 / 1250 1350 / 1350
Balance -210 / -210 -790 / -790 240 / 240
Review of Systems
-
History Source: Patient
All other systems: Reviewed and negative
Physical Exam
-
General: No Apparent Distress
HEENT: Normocephalic
Neuro: Awake, Alert, Oriented and AO x 3
Psych: Calm
--- NOTE | 2024-08-10 11:35 | W.DCSUMMARY ---
Discharge Summary
Discharge Data
Date of Admission: 07/30/24
Date of Discharge: 08/10/24
-
Pending Results: No
Hospital Course
1yo F with PMHx of HFpEF, mechanical MV, TAVR, V.Fib s/p ICD, CAD s/p CABG, RBBB, permanent A.fib, CKD, HTN, Hx of subdural hemorrhage, rectal bleeding, DM, gout brought with fever, confusion, managed for hepatic encephalopathy, most likely 2/2 CHF
and axiliary vein non-occlusive thrombus. CT on admission showed colitis of the descending colon and splenic flexure. Much improved with lactulose, diuresis and Abx for colitis. Sodium improved on diuretics. MEdcially stable for d/c. As agreed with
cardiology - restart Coumadin 1.5mg daily with INR in 2-3 days forwarded to office
Significant deterioration and deconditioning over past few months, discussed poor prognosis with family
I have spent at least 39min reviewing chart, test results, communication with consultants and direct patient care
Patient was managed for
#Hepatic encephalopathy
#Chronic elevation of alk.phos
#Chronic transaminitis
#persistent nausea
#Colitis on admission
#Generalized malaise
#fever on admission
#Acute respiratory insufficiency with b/l small pleural effusion
#Acute on Chronic HFpEF
#mechanical MV
# s/p TAVR
#Permanent A.finb
#SVT s/p ICD
#supratherapeutic INR
#Mild hyponatremia
#JOJO on CKD stage 3b - resolved
#Hypokalemia
#fever on admission
#chronic dissection of the abdominal aorta
#Ileus on XR
#LUE non-occlusive DVT
#Cystic focus on L kidney hilum
#Transaminitis
#Bilirubinemia
#Hx of LGIB
#DJD
Discharge Plan
-
Patient Disposition: Prison/SNF
Discharge Diagnosis/Procedures: Hepatic encephalopathy
Diet: Restrict fluids to 48 oz
Activity: As tolerated
Driving Restrictions: As prior to admission
Blood Work: INR in 2 days forward result to office
Referrals:
Jordan Rockwell III, MD [Active] - in four to six weeks (Chronic abdominal aortic dissection)
Pastor Kolb MD [Family Provider] -
Marialuisa Nelson DO [Active] - in one to two months
Prescriptions:
New
torsemide 20 mg Tablet
40 mg PO DAILY Qty: 30 0RF
metoprolol succinate 50 mg Tablet Extended Release 24 Hr
50 mg PO BID Qty: 60 0RF
metronidazole 500 mg Tablet
500 mg PO Q8 Qty: 6 0RF
sodium bicarbonate 650 mg Tablet
1,300 mg PO BID Qty: 120 0RF
warfarin [Jantoven] 1 mg Tablet
1.5 mg PO QPM Qty: 5 0RF
Xifaxan 550 mg Tablet
550 mg PO BID Qty: 60 0RF
cefdinir 300 mg capsule
300 mg PO Q12H Qty: 4 0RF
lactulose 20 gram packet
20 g PO BID Qty: 30 0RF
Rx Instructions:
Stop if 2 or more BM per day
Continued
levalbuterol HCl 0.63 mg/3 mL solution for nebulization
0.63 mg INHALATION R Q8HPRN PRN (Reason: sob/wheezing)
ferrous sulfate 325 mg (65 mg iron) Tablet
325 mg PO DAILY
docusate sodium [Colace] 100 mg Capsule
100 mg PO DAILY
omega [id number] oil [Fish Oil] 1,000 (120-180) mg Capsule
1 cap PO DAILY
pantoprazole 40 mg Tablet,Delayed Release (Dr/Ec)
40 mg PO BID 30 Days Qty: 60 0RF
therapeutic multivitamin Tablet
1 tab PO DAILY 30 Days Qty: 30 0RF
repaglinide 0.5 MG tablet
0.5 mg PO AC 30 Days Qty: 30 0RF
Patient Comments:
nitroglycerin 0.4 mg Tablet, Sublingual
0.4 mg SUBLINGUAL [id number] PRN (Reason: chest pain) 30 Days Qty: 20 0RF
senna 8.6 mg Capsule
8.6 mg PO DAILYPRN PRN (Reason: constipation) 30 Days Qty: 30 0RF
calcium polycarbophil [Fiber-Lax] 625 mg Tablet
625 mg PO DAILY
allopurinol 100 mg tablet
100 mg PO HS
spironolactone 25 mg Tablet
25 mg PO DAILY Qty: 0 0RF
potassium chloride 10 mEq Capsule, Extended Release
20 meq PO BID 30 Days Qty: 30 0RF
folic acid 0.8 mg Capsule
0.8 mg PO DAILY
torsemide 20 mg tablet
20 mg PO DAILY
Discontinued
metoprolol succinate 25 mg Capsule,Sprinkle,Er 24hr
25 mg PO BID
zolpidem 5 mg Tablet
5 mg PO HSPRN PRN (Reason: insomnia) Qty: 2 0RF
warfarin 2.5 mg Tablet
1.25 mg PO SUTUTH
metolazone 5 mg tablet
5 mg PO MOWEFR
warfarin 2.5 mg tablet
2.5 mg PO MOWEFRSA
Discharge Orders:
Discharge Patient (As Directed); Ordered 08/10/24
Ordered By: Prashant oHgan
Discharge Date and Time
Print Language: SINHALA
--- NOTE | 2024-08-10 11:36 | W.PN.NEPH.PH ---
Today's Communication / Plan
-
K
Assessment/Plan
-
Impression:
new onset hepatic encephalopathy
Acute on chr D CHF
Acute kidney injury
CKD stage IIIb with baseline creatinine 1.7
Metabolic acidosis
Permanent Atrial fibrillation on chronic anticoagulation
Hypertension
Diabetes
Valvular heart disease (hx of mechanical valve replacement)
CAD with history of CABG
ICD
Thrombocytopenia
Elevated LFTs
Plan:
follow BMP
torsemide continues
replete K today
rehab
-
-
Date of Service: August 10, 2024
CC / HPI / ROS
-
Chief Complaint:
JOJO
History of Present Illness:
JOJO/Cr 1.7 and stable
Na low 131 stable
K 3.6
BP stable
Review of Systems:
Eating better
no CP/SOB
Labs
-
Labs:
WBC 5.3 10^3/uL (4.8-10.8) 08/08/24 05:29
RBC 4.04 10^6/uL (4.20-5.40) L 08/08/24 05:29
Hgb 12.5 g/dL (12.0-16.0) 08/08/24 05:29
Hct 36.6 % (37.0-47.0) L 08/08/24 05:29
Plt Count 148 10^3/uL (130-400) 08/08/24 05:29
Sodium 131 mmol/L (135-145) L 08/10/24 07:39
Potassium 3.6 mmol/L (3.5-5.1) 08/10/24 07:39
Chloride 92 mmol/L (98-107) L 08/10/24 07:39
Carbon Dioxide 28 mmol/L (22-30) 08/10/24 07:39
BUN 54 mg/dl (7-17) H 08/10/24 07:39
Creatinine 1.7 mg/dL (0.6-1.0) H 08/10/24 07:39
eGFR 30.13 08/10/24 07:39
Glucose 108 mg/dl (70-99) H 08/10/24 07:39
Calcium 9.0 mg/dl (8.4-10.2) 08/10/24 07:39
Albumin 3.2 g/dl (3.5-5.0) L 08/09/24 06:30
Physical Exam
-
Vital Signs:
Vital Signs
Temp Pulse Resp BP Pulse Ox
97.7 F 92 15 109/76 97
08/10/24 07:16 08/10/24 07:16 08/10/24 07:16 08/10/24 07:16 08/10/24 07:16
Cardiovascular:: Regular rate and rhythm
Respiratory:: Bilateral: Coarse
Lung Excursion:: Normal
Abdomen:: Nontender and Soft
Bowel Sounds:: Normal
Extremity Edema:: +2: Bilateral:
--- NOTE | 2024-08-10 11:53 | CM ---
CM following re: discharge planning.
Reviewed pt's chart, met with pt and spoke to pt's son Antwan over the phone to update on discharge plan progress.
Discharge order noted. Both pt and her son Antwan are aware, expressed their agreement with discharge. IMM reviewed, placed on chart, pt has a copy.
CM spoke to [facility] RN Mariposa and she confirmed they do have a bed available and pt is accepted for admission today.
arranged transportation BLS with [facility] time 4[facility]00 [facility].m. [facility] and left with
[facility] nursing report: report [phone]
Discharge instruction fax [phone]
D/C plan: [facility]
[2024-08-10 12:55] LABS: Glucose - Point of Care 161 mg/dl (70-99)
[2024-08-10] MEDS: NOVOLOG FLEXPEN-LOW RESISTANCE 1 UNITS SC (12:55)
[2024-08-10] MEDS: KCL 40 MEQ PO (12:56)
[2024-08-10 15:18] VITALS: BP 121/56
[2024-08-10] MEDS: COUMADIN 1.5 MG PO (17:01)
--- NOTE | 2024-08-10 18:17 | PTCARENOTE ---
IV's discontinued. Rosina from [facility] called to get report which was given. Pt transported off the floor via ambulance stretcher with belongings from room.
== END 2024-08-10 18:45 | DRG 871 ==
LOC: 4 EAST ACU 23:58
PROVIDERS: Hospitalist; Nurse Practitioner; Nurse Practitioner Adult Health; Nurse Practitioner Gerontology; Specialist; ADMITTING PHYSICIAN Hospitalist; ATTENDING PHYSICIAN Internal Medicine; CONSULT PHYSICIAN Internal Medicine; CONSULT PHYSICIAN Internal Medicine Nephrology; EMERGENCY PHYSICIAN Emergency Medicine; FAMILY PHYSICIAN Family Medicine; OTHER PHYSICIAN Internal Medicine; OTHER PHYSICIAN Internal Medicine Hematology & Oncology
DX: A41.9 Sepsis, unspecified organism (principal); G93.41 Metabolic encephalopathy; I50.33 Acute on chronic diastolic (congestive) heart failure; I48.21 Permanent atrial fibrillation; I13.0 Hypertensive heart and chronic kidney disease with heart failure and stage 1 through stage 4 chronic kidney disease, or unspecified chronic kidney disease; N17.9 Acute kidney failure, unspecified; N18.4 Chronic kidney disease, stage 4 (severe); E87.20 Acidosis, unspecified; E87.1 Hypo-osmolality and hyponatremia; K56.7 Ileus, unspecified; A09 Infectious gastroenteritis and colitis, unspecified; J98.11 Atelectasis; I47.10 Supraventricular tachycardia, unspecified; Z11.52 Encounter for screening for COVID-19; K76.82 Hepatic encephalopathy; Z79.01 Long term (current) use of anticoagulants; D69.6 Thrombocytopenia, unspecified; E87.6 Hypokalemia; M19.90 Unspecified osteoarthritis, unspecified site; D64.9 Anemia, unspecified; E11.22 Type 2 diabetes mellitus with diabetic chronic kidney disease; E11.36 Type 2 diabetes mellitus with diabetic cataract; E11.649 Type 2 diabetes mellitus with hypoglycemia without coma; E66.9 Obesity, unspecified; E78.00 Pure hypercholesterolemia, unspecified; F32.A Depression, unspecified; F41.9 Anxiety disorder, unspecified; Z66 Do not resuscitate
CPT/HCPCS: 70450; 71045; 74022; 74176; 76705; 76770; 80048; 80053; 80202; 81003; 82140; 82248; 82533; 82550; 82570; 82805; 82962; 83036; 83605; 83735; 83935; 84156; 84300; 84439; 84443; 85025; 85027; 85610; 86704; 86705; 86706; 86708; 86709; 86803; 87040; 87070; 87340; 87502; 87811; 93005; 93971; 94640; 96365; 96375; 97163; 97167; 97530; 99291

== ENCOUNTER 2024-09-11 13:17 | Inpatient (IN) | payer MEDICARE, OTHER, SELFPAY ==
[2024-09-11] VITALS (13 sets, daily range): BP systolic 92–141; BP diastolic 46–95
[2024-09-11 04:54] LABS: ALT (SGPT) 17 U/L (0-35); AST (SGOT) 56 U/L (14-36); Albumin 3.5 g/dl (3.5-5.0); Alkaline Phosphatase 222 U/L (38-126); Blood Urea Nitrogen 36 mg/dl (7-17); Calcium 9.3 mg/dl (8.4-10.2); Carbon Dioxide 23 mmol/L (22-30); Chloride 102 mmol/L (98-107); Estimated Creatinine Clearance 27 ml/min; Glucose 104 mg/dl (70-99); Potassium 4.5 mmol/L (3.5-5.1); Sodium 136 mmol/L (135-145); Total Protein 6.3 g/dl (6.3-8.2); eGFR 30.13
[2024-09-11 05:06] LABS: NT-proBNP 5370 pg/ml; Troponin I 0.023 ng/ml
[2024-09-11 05:24] LABS: Ammonia 51 umol/L (9-30)
[2024-09-11 05:28] LABS: INR 2.84; PT 30.2 Sec (11.4-14.6)
[2024-09-11 05:36] LABS: % Basophils 1.4 % (0-2); % Eosinophils 2.3 % (0-6); % Immature Granulocytes 0.4 % (0-0.5); % Lymphocytes 20.9 % (20.5-51.1); % Monocytes 13.7 % (1.7-9.3); % Neutrophils 61.3 % (42.2-75.2); Absolute Basophils 0.1 10^3/uL (0-0.2); Absolute Eosinophils 0.1 10^3/uL (0-0.7); Absolute Lymphocytes 1.1 10^3/uL (1.2-3.4); Absolute Monocytes 0.7 10^3/uL (0.1-0.6); Absolute Neutrophils 3.2 10^3/uL (1.4-6.5); Hematocrit 35.4 % (37.0-47.0); Hemoglobin 11.5 g/dL (12.0-16.0); Mean Corp Hgb Conc. 32.5 g/dL (33.0-37.0); Mean Corpuscular Volume 95.4 fL (81.0-99.0); Red Blood Cell Count 3.71 10^6/uL (4.20-5.40); Red Cell Dist. Width 19.8 % (11.5-14.5); White Blood Cell Count 5.2 10^3/uL (4.8-10.8)
--- NOTE | 2024-09-11 05:40 | ED.GENMED ---
History of Present Illness
General
Chief Complaint: Weakness
Source: patient, spouse and previous hospital records (Multiple repeated hospitalizations since mid April 2024 most recently July 30 to August 10.)
Exam Limitations: clinical condition (Moderately drowsy, poorly communicative) and altered mental status
Time Seen by Provider: 09/11/24 04:50
Nursing documentation reviewed up to this point in time: agreed with
History of Present Illness
History of Present Illness:
This is an 78-year-old woman with history of hypertension, hyperlipidemia, severe status post TAVR 2022, mechanical mitral valve replacement 2008, chronically maintained on Coumadin. History of CHF with preserved EF, diabetes, V-fib arrest
status post ICD, permanent A-fib, CAD, hepatic encephalopathy. She resides at home with her but has had multiple recurrent hospitalizations since April of this year for recurrent exacerbations of CHF complicated by acute kidney injury,
progression of encephalopathy, profound generalized weakness and deconditioning.
Most recently hospitalized July 30 to August 10. Discharged to care home facility for rehabilitation where she was eventually discharged to home just 2 days ago. states she was doing well for the first day but then yesterday has
had significant progressive weakness, has suffered 3 falls.
He also notes significant bilateral lower extremity edema which was present upon discharge from the [facility]. This lower extremity edema was not present when she was discharged from the hospital August 10.
There has been no change in her medications other than Coumadin is currently on hold for the and with plan to resume on the .
has noticed that his has been significantly lethargic, more so throughout the day. He does not believe she struck her head. She has had some resting tachypnea but no cough. No fever.
He has been compliant with medications including lactulose at least twice yesterday. Nebulizer treatments. According to our records patient's discharge weight
On August 10 was 67.27 kg.
Current weight is 77.3 kg.
Past History
Past History
ED Past Medical History: Arrthythmia ( out of hospital cardiac arrest, ventricular fibrillation, PVCs, permanent atrial fibrillation,), CAD, CHF, HTN, Hypercholesterolemia, NIDDM, Valvular disease and Other (Pneumonia, GIB, Chronic cough, Anal
fissures. )
ED Past Surgical History: Cardiac (Pacer/Defib, Mitral valve replaced,. CABG X 4, TAVR), Cholecystectomy and Other (cataracts)
Social History
Tobacco: Non-smoker
Alcohol: None
Drug: None
Personal:
Living: with family
Employment: Retired
Family History
Family History: Other (Noncontributory)
Phy Exam
Physical Exam
Physical Exam:
GENERAL: 78-year-old woman appears chronically debilitated, markedly lethargic. She opens her eyes to verbal stimuli but otherwise nonverbal. She is not following commands. is accompanying.
EYE: pupils equal and reactive. anicteric
NECK: Supple, nontender, no meningismus, no significant adenopathy. Moderate JVD.
ENT: oral mucosa is moist. No rhinorrhea.
CARDIAC: Regular rate and rhythm. 3/6 holosystolic murmur, mechanical click is noted.
LUNGS: Mild resting tachypnea, bibasilar Rales. Pulse ox 98% on room air.
ABDOMEN: Soft, nondistended, without focal tenderness
NEUROLOGICAL: Markedly drowsy, opens her eyes briefly to verbal stimuli no focal neuro deficits.
SKIN: Warm and dry, normal color, skin intact. Poor turgor. Bilateral lower extremity chronic appearing redness. No palpable heat nor palpable tenderness.
MUSCULOSKELETAL: +3-4 pitting edema bilateral lower extremities with global erythema of the lower legs without palpable heat nor palpable tenderness.. peripheral pulses are full and equal b/l.
PSYCH: Markedly drowsy.
Scores
Heart Failure Risk
Heart Failure Risk Score: Yes
History of Stroke or TIA: No
History of intubation for respiratory distress: No
Heart rate on ED arrival >/= 110: No
SaO2 <90% on arrival on room air: No
HR >/=110 during 3min walk test (or too ill to perform test): Yes
ECG has acute ischemic changes: No
Urea >/=12mmol/L (BUN 33.6mg/dL): Yes
Serum CO2>/=35mmol/L: No
Troponin I or T elevated to OK Level (0.4mg/dL): No
NT-proBNP >/=5,000ng/L (5,000pg/ml): Yes
HF Risk Score: 4
Admission Status: HIGH RISK 26.1% Consider SNF treatment or admission to hospital
Course
Orders/Labs/Results
Orders:
Orders
09/11/24 04:13
EKG [Electrocardiogram (*1)] Urgent
Reason for Study: Fatigue / Weakness
EKG- Treatment ONCE
09/11/24 04:32
Complete Blood Count/With Diff Urgent
Comprehensive Metabolic Panel Urgent
NT-proBNP Urgent
Troponin I Urgent
09/11/24 05:05
Ammonia Urgent
Prothrombin Time Urgent
09/11/24 05:18
CT Head W/o Iv Contrast Urgent
Comment:
Reason For Exam: Frequent falls, on coumadin
09/11/24 05:19
CR Chest - 2 Views Urgent
Comment:
Reason For Exam: sob, lethargy, hx CHF
09/11/24 06:42
Furosemide [Lasix] 40 mg IV NOW STA
09/11/24 06:42
Lactulose [Duphalac/Chronulac] 20 grams PO NOW STA
Abnormal Lab Results
09/11/24 09/11/24
04:32 05:05
RBC 3.71 L 10^6/uL
(4.20-5.40)
Hgb 11.5 L g/dL
(12.0-16.0)
Hct 35.4 L %
(37.0-47.0)
MCHC 32.5 L g/dL
(33.0-37.0)
RDW 19.8 H %
(11.5-14.5)
Plt Count 61 L 10^3/uL
(130-400)
Absolute Lymphs (auto) 1.1 L 10^3/uL
(1.2-3.4)
Absolute Monos (auto) 0.7 H 10^3/uL
(0.1-0.6)
Monocytes % 13.7 H %
(1.7-9.3)
PT 30.2 H Sec
(11.4-14.6)
BUN 36 H mg/dl
(7-17)
Creatinine 1.7 H mg/dL
(0.6-1.0)
Glucose 104 H mg/dl
(70-99)
Total Bilirubin 2.0 H mg/dl
(0.2-1.3)
AST 56 H U/L
(14-36)
Alkaline Phosphatase 222 H U/L
(38-126)
Ammonia 51 H umol/L
(9-30)
09/11/24 04:32
09/11/24 04:32
Vital Signs
Initial and Last Documented VS:
Initial Vital Signs
Temp Pulse Resp BP Pulse Ox
98.1 F 107 24 93/52 100
09/11/24 04:06 09/11/24 04:06 09/11/24 04:06 09/11/24 04:06 09/11/24 04:06
Last Documented Vital Signs
Temp Pulse Resp BP Pulse Ox
98.1 F 89 22 98/76 97
09/11/24 04:06 09/11/24 06:35 09/11/24 06:35 09/11/24 06:35 09/11/24 06:35
MDM/Problems Addressed
Differential Diagnosis Includes:
Patient has gained 10 pounds this past month during [facility] stay.
Concern for exacerbation of CHF, concern for exacerbation of hepatic encephalopathy, CVA as cause for progressive weakness with frequent falls.
Concern for occult closed head injury. Concern for electrolyte abnormality.
Will check CT of the head, chest x-ray, labs including ammonia level, PT/INR.
Patient is moderately obtunded, appears to have mild resting tachypnea but pulse ox 98%.
Clearly not able to return to the [facility] and current physical condition. Will likely require acute hospitalization for stabilization of heart failure, fluid status, encephalopathy.
Chronic conditions affecting care: DM, HTN, CAD, Cardiomyopathy, Arrhythmia, Neurological disorder and Kidney disease
*Radiology
Radiology exam reviewed: radiology read reviewed (CT of the head shows no hemorrhage nor other intracranial abnormality)
*Pulse Oximetry
Patient hypoxic: no
*EKG
Interpreted by ED Provider?: Yes
Interpretation: abnormal
Comparison EKG: no changes (Unchanged from previous August 01, 2024)
Rate: normal
Rhythm: a-fib
[place]: normal axis
Interval: normal QT interval
QRS Pattern: poor R-wave progression and left vent hypertrophy
Ischemia: non-specific ST changes
*[employer] Operator Interpretation
Rate: normal
Rhythm: a-fib
*Critical Care Note
Total Time (30-74mins, 75-104mins- exclusive of procedures): Not Applicable
Update Note
Update Note:
06:45
Patient remains moderately sedate.
CT of the head shows no acute traumatic findings.
Chest x-ray shows cardiomegaly, increased pulmonary vasculature representing mild CHF. As well as tiny bilateral pleural effusions.
Labs are significant for moderate thrombocytopenia at 61 which is trended down from previous. She has had similar sporadic episodes of thrombocytopenia in the past.
Ammonia level is 51 having trended up from previous.
Creatinine is stable at 1.7 but BUN is trended down from 54 to now 36. Electrolytes otherwise within normal limits.
BNP is elevated at 5370 which is trended up from previous.
INR is therapeutic at 2.84.
Due to elevated BNP, significant bilateral lower extremity edema which has progressed over the past month, evidence of CHF on chest x-ray will give an IV dose of Lasix. Will give an oral dose of lactulose for elevated ammonia level and will admit
to hospitalist service.
ED Attending Note
-
Portions of this chart may have been created with voice recognition software.� Occasional wrong word or��sound alike� substitutions may have occurred due to the inherent limitations of voice recognition software.
Discharge Plan
Departure
Patient Disposition: Admit
Date of Disposition: 09/11/24
Time of Disposition: 06:45
Admit to: Med/Surg
Presentation/result/management discussed w/ accepting MD/DO: Hospitalist
Discharge Problem:
Acute on chronic diastolic CHF (congestive heart failure), Edema of both lower extremities due to peripheral venous insufficiency, Hypertensive heart and chronic kidney disease with heart failure and stage 1 through stage 4 chronic kidney disease,
or unspecified chronic kidney disease, Thrombocytopenia, Encephalopathy, hepatic, Acute on chronic heart failure with preserved ejection fraction (HFpEF)
Prescriptions:
No Action
levalbuterol HCl 0.63 mg/3 mL solution for nebulization
0.63 mg INHALATION R Q8HPRN PRN (Reason: sob/wheezing)
ferrous sulfate 325 mg (65 mg iron) Tablet
325 mg PO DAILY
docusate sodium [Colace] 100 mg Capsule
100 mg PO DAILY
omega [id number]-jat-[id number]-fish oil [Fish Oil] 1,000 (120-180) mg Capsule
1 cap PO DAILY
pantoprazole 40 mg Tablet,Delayed Release (Dr/Ec)
40 mg PO BID 30 Days Qty: 60 0RF
therapeutic multivitamin Tablet
1 tab PO DAILY 30 Days Qty: 30 0RF
repaglinide 0.5 MG tablet
0.5 mg PO AC 30 Days Qty: 30 0RF
Patient Comments:
nitroglycerin 0.4 mg Tablet, Sublingual
0.4 mg SUBLINGUAL [id number] PRN (Reason: chest pain) 30 Days Qty: 20 0RF
senna 8.6 mg Capsule
8.6 mg PO DAILYPRN PRN (Reason: constipation) 30 Days Qty: 30 0RF
calcium polycarbophil [Fiber-Lax] 625 mg Tablet
625 mg PO DAILY
allopurinol 100 mg tablet
100 mg PO HS
spironolactone 25 mg Tablet
25 mg PO DAILY Qty: 0 0RF
potassium chloride 10 mEq Capsule, Extended Release
20 meq PO BID 30 Days Qty: 30 0RF
folic acid 0.8 mg Capsule
0.8 mg PO DAILY
torsemide 20 mg tablet
20 mg PO DAILY
torsemide 20 mg Tablet
40 mg PO DAILY Qty: 30 0RF
metoprolol succinate 50 mg Tablet Extended Release 24 Hr
50 mg PO BID Qty: 60 0RF
metronidazole 500 mg Tablet
500 mg PO Q8 Qty: 6 0RF
sodium bicarbonate 650 mg Tablet
1,300 mg PO BID Qty: 120 0RF
warfarin [Jantoven] 1 mg Tablet
1.5 mg PO QPM Qty: 5 0RF
Xifaxan 550 mg Tablet
550 mg PO BID Qty: 60 0RF
cefdinir 300 mg capsule
300 mg PO Q12H Qty: 4 0RF
lactulose 20 gram packet
20 g PO BID Qty: 30 0RF
Rx Instructions:
Stop if 2 or more BM per day
Referrals:
UNKNOWN - PT DOES,NOT KNOW [Family Provider] -
Interventions
Interventions:
*Risk Screen - Suicide Last Done: 09/11/24 04:06
*General Assessment Last Done: 09/11/24 04:06
*Neglect/Abuse Screening Last Done: 09/11/24 04:06
ED- Fall Risk Assessment Last Done: 09/11/24 04:13
*ED COVID-19 Vaccine History Last Done: 09/11/24 04:06
ED- Cardiac Assessment Last Done: 09/11/24 04:52
ED- Neurological Assessment Last Done: 09/11/24 04:52
ED- Pulmonary Assessment Last Done: 09/11/24 04:52
Discharge Date and Time
Print Language: KYRGYZ
[2024-09-11 06:10] LABS: Anisocytosis 1+; Normal RBC Morphology No; Ovalocytes 1+
[2024-09-11 06:11] LABS: Platelet Count 61 10^3/uL (130-400); Polychromasia Occasional; Target Cells Occasional; Tear Drop Red Blood Cells Occasional
[2024-09-11 06:12] LABS: Acanthocytes Occasional
[2024-09-11] MEDS: DUPHALAC/CHRONULAC 20 GRAMS PO ×3 (07:36→22:31)
--- NOTE | 2024-09-11 09:44 | CM ---
Patient is known to [facility] Office.
--- NOTE | 2024-09-11 13:10 | HPS.HSE ---
Family Physician
-
Family Physician: NOT KNOW UNKNOWN - PT DOES
Chief Complaint
-
weakness
History of Present Illness
78-year-old female with extensive past medical history who is presenting from home for weakness. Patient was recently discharged from SNF after a prolonged stay at the rehab for approximately may be greater than 4 weeks. States she was ambulating
well after discharge for 24 hours and subsequently afterwards started feeling weak. Per patient had multiple falls and to call EMS and patient's son for assistance. Patient was feeling weak and was slipped down from commode. Patient was
setting of generalized weakness. Per spouse at bedside patient is compliant with diuretics. Patient stated at home she was compliant with oral intake. However patient with 10 kg weight gain. Also states of lower extremity edema. Patient is
currently sleepy. Denies any nausea, vomiting, abdominal pain. States of chronic lower extremity edema. Denies any PND orthopnea. Only having 1 or sometimes 2 formed bowel movements. Denies any fevers, chills. Denies any dysuria. Denies any
lightheadedness or dizziness or headache or neck pain. Denies any chest pain.
Medical History
Past Medical History
Past Medical History: Reports Other
Additional Past Medical History:
Hepatic encephalopathy
Chronic elevation of alk.phos
Chronic transaminitis
persistent nausea
Generalized malaise
small pleural effusion
Chronic HFpEF
mechanical MV
s/p TAVR
Permanent A.fib
SVT s/p ICD
supratherapeutic INR
Mild hyponatremia
CKD stage 3b
Chronic dissection of the abdominal aorta
LUE non-occlusive DVT
Cystic focus on L kidney hilum
Transaminitis
Bilirubinemia
Hx of LGIB
DJD
Past Surgical History: Reports Other
Additional Past Surgical History:
Cardiac (Pacer/Defib, Mitral valve replaced,. CABG X 4, TAVR),
Cholecystectomy
cataracts
Social History
Tobacco: Non-smoker
Alcohol: None
Personal:
Living: With Family
Family History
Family History: Not pertinent
Allergies / Home Medications
Allergies reflects when Allergies were last updated in [facility].
Home Medications with original date entered in [facility]
Allergy/Medication List:
Allergies
Allergy/AdvReac Type Severity Reaction Status Date / Time
No Known Allergies Allergy Verified 07/30/24 20:23
Home Medications
docusate sodium 100 mg capsule (Colace) 100 mg PO DAILY Constipation 05/01/24
ferrous sulfate 325 mg (65 mg iron) tablet 325 mg PO DAILY Supplement 05/01/24
omega 7-rpp-sup-fish oil 1,000 mg (120 mg-180 mg) capsule (Fish Oil) 1 cap PO DAILY Supplement 05/01/24
nitroglycerin 0.4 mg sublingual tablet 0.4 mg sublingual [id number] PRN chest pain 30 days #20 tabs 05/12/24
repaglinide 0.5 mg tablet 0.5 mg PO AC Diabetes 30 days #30 tabs 05/12/24
therapeutic multivitamin 1 tab PO DAILY Supplement 30 days #30 tabs 05/12/24
allopurinol 100 mg tablet 100 mg PO HS Gout 06/10/24
calcium polycarbophil 625 mg tablet (Fiber-Lax) 625 mg PO DAILY 06/10/24
potassium chloride 10 mEq capsule,extended release 20 meq (2 x 10 mEq) PO BID Supplement 30 days #30 caps 06/21/24
spironolactone 25 mg tablet 25 mg PO DAILY Fluid retention/Swelling #0 tabs 06/21/24
folic acid 0.8 mg capsule 0.8 mg PO DAILY 07/30/24
torsemide 20 mg tablet 40 mg PO DAILY Fluid Retention/Swelling 07/30/24
metoprolol succinate 50 mg tablet,extended release 24 hr 50 mg PO BID #60 tabs 08/10/24
rifaximin 550 mg tablet (Xifaxan) 550 mg PO BID #60 tabs 08/10/24
sodium bicarbonate 650 mg tablet 1,300 mg (2 x 650 mg) PO BID #120 tabs 08/10/24
acetaminophen 325 mg tablet (Tylenol) 650 mg PO Q6HPRN PRN mild pain 09/11/24
lactulose 20 gram oral packet 20 g PO QID 09/11/24
levalbuterol tartrate 45 mcg/actuation aerosol inhaler (Xopenex HFA) 2 inh inhalation R Q6HPRN PRN sob 09/11/24
pantoprazole 40 mg tablet,delayed release 40 mg PO DAILY Gastrointestinal issue 09/11/24
sennosides 8.6 mg tablet (senna) 8.6 mg PO BIDPRN PRN constipation 09/11/24
warfarin 1 mg tablet (Jantoven) 2 mg PO DIRECTED 09/11/24
Review of Systems
-
History Source: Patient and Family
A 12 point ROS was completed and negative except as noted: Yes
Physical Exam
Vital Signs
Vital Signs
Temp Pulse Resp BP Pulse Ox
98.1 F 83 23 103/74 97
09/11/24 04:06 09/11/24 12:01 09/11/24 12:01 09/11/24 12:01 09/11/24 12:01
Physical Exam
General: Well Developed, Well Nourished and No Apparent Distress
HEENT: NormoCephalic, Moist mucous membranes and Atraumatic
Respiratory: Clear
Cardiac: S1/S2 and Regular Rhythm; No Murmur or Rub
GI: Soft, Non Tender, Normal Bowel Sounds and Distended; No Organomegaly
Rectal: Deferred by Provider
Musculoskeletal: No Clubbing, No Cyanosis, Edema, Left Lower Extremity (chronic venous stasis ), Edema, Right Lower Extremity (chronic venous stasis ) and No Edema
Skin: No Rash
Neuro: Awake, Alert, Oriented, AO x 3 and Nonfocal/grossly intact
Psych: Calm
Laboratory Results
-
09/11/24 04:32
09/11/24 04:32
Laboratory Results
PT 30.2 Sec (11.4-14.6) H 09/11/24 05:05
INR 2.84 09/11/24 05:05
Total Bilirubin 2.0 mg/dl (0.2-1.3) H 09/11/24 04:32
AST 56 U/L (14-36) H 09/11/24 04:32
ALT 17 U/L (0-35) 09/11/24 04:32
Alkaline Phosphatase 222 U/L (38-126) H 09/11/24 04:32
Troponin I 0.023 ng/ml 09/11/24 04:32
Impression/Plan
-
#Hepatic encephalopathy
#Chronic elevation of alk.phos
#Chronic transaminitis
# Liver cirrhosis
Patient afebrile.
Start patient on lactulose and monitor bowel movements. Titrate lactulose based on bowel movements. Goal 3-4 loose bowel movements a day
Continue rifaximin
Monitor mentation
#Acute on chronic HFpEF
#Mechanical MV
# s/p TAVR
#SVT s/p ICD
Patient dry weight on 67 kg. Patient with weight gain since discharge from the hospital last month
Start patient on Lasix 40 mg twice daily
Continue with 25 mg Aldactone
Continue with p.o. KCl
Monitor creatinine closely. Requires invasive monitoring
Strict I's and O's. Daily weights.
Cardiology evaluation
#Permanent A.fib
Continue with metoprolol
Continue with 2 mg of Coumadin
INR therapeutic at 2.84. Check daily INR.
# Ambulatory dysfunction likely secondary to congestive heart failure exacerbation and deconditioning
Physical and Occupational Therapy
May require placement.
Discussed with spouse about considering long-term care.
#CKD stage 3b
follow Cr - baseline 1.8
#chronic dissection of the abdominal aorta
Outpatient VascSx
#LUE non-occlusive DVT
unclear if subacute versus chronic
Hematology evaluated last admission- advised to cont Warfarin
#Hx of LGIB
small polyps and hemorrhoids on colonoscopy in Apr 2024
#DJD
tylenol
PT/OT
DVT ppx on Coumadin
DNR/DNI
Discussed with patient spouse at bedside in detail
I spent a total of 80 minutes with the patient or on the floor. More than 50% of this time involved counseling and coordination of care.
--- NOTE | 2024-09-11 13:27 | CON.CAR ---
Addendum entered and electronically signed by Milton Mcgovern MD 09/11/24 17:06:
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 Her weight is noted to be up from prior, with more edema. We are consulted for acute on chronic
HFPEF. Exam with irregular rhythm, II/ systolic murmur at RUSB, 2+ LE edema. Cr 1.7.
Acute on chronic HFPEF. High risk with CKD4, cardiorenal syndrome. Continue lasix 80mg IV bid, with close monitoring of labs, tele.
Dispo. I did discuss with patient and that it appears she may need a longer term assisted living facility. As she had multiple fall within 24hrs of discharge back to home.
Original Note:
Consultation
Consultation Request
Date/Time Consultation Requested: 09/11/24 1323
Date/Time Consultation Performed: 09/11/24 1327
Requesting Provider: Dr. Rodríguez
Performing Provider: Alejandra LOVE for Dr. Mcgovern
Reason for Consultation: CHF
Medical History
-
Chief Complaint: weakness
History of Present Illness:
78 y/o female (patient of Dr. Mcgovern) with TAVR 09/2022, mechanical MVR 2008, permanent AFIB on warfarin, VF arrest with single chamber ICD 2019, CAD s/p CABG 2008, HFpEF, DM, HTN, HLD, CKD4, SDH after fall 2021 who is here for evaluation weakness and
falls. She was hospitalized last month with altered MS and had elevated ammonia (s/p lactulose), hyponatremia, and fever/colitis (s/p ABX). Also CHF and IV lasix given last admit. Sent home with cardiology plan for torsemide 40 mg daily and
Aldactone 25 mg daily with PRN metolazone. It does not seem like PRN metolazone was prescribed at d/c. She was sent to a rehab and went home on Sunday and seemed to be doing well, but then Sunday had weakness and fatigue and had 3 falls due to
weakness, so she is back. We are consulted for acute-on chronic HFpEF. ER weight suggests 10 kg weight gain, which is likely overestimate, but she does appear to be volume overloaded with mild BLE edema, diminished lung sounds. It does not sound
like there was sodium/fluid limitations and she had recurrent soup in rehab. She is in no distress at the time of my assessment. is at bedside. BP's on low end, monitor.
Past Medical History
Past Medical History: Arrhythmias, CAD, CHF and Valvular Disease
Social History
Personal:
Living: With Family
Family History
Family History: Reviewed & Not Pertinent
Allergies / Home Medications
Allergy/AdvReac Type Severity Reaction Status Date / Time
No Known Allergies Allergy Verified 07/30/24 20:23
�Medication �Instructions �Recorded �Confirmed �Type
docusate sodium 100 mg capsule 100 mg PO DAILY Constipation 05/01/24 09/11/24 History
(Colace)
ferrous sulfate 325 mg (65 mg 325 mg PO DAILY Supplement 05/01/24 09/11/24 History
iron) tablet
omega 6-xth-ycr-fish oil 1,000 mg 1 cap PO DAILY Supplement 05/01/24 09/11/24 History
(120 mg-180 mg) capsule (Fish Oil)
nitroglycerin 0.4 mg sublingual 0.4 mg sublingual [id number] PRN 05/12/24 09/11/24 Rx
tablet chest pain 30 days #20 tabs
repaglinide 0.5 mg tablet 0.5 mg PO AC Diabetes 30 days #30 05/12/24 09/11/24 Rx
tabs
therapeutic multivitamin 1 tab PO DAILY Supplement 30 days 05/12/24 09/11/24 Rx
#30 tabs
allopurinol 100 mg tablet 100 mg PO HS Gout 06/10/24 09/11/24 History
calcium polycarbophil 625 mg 625 mg PO DAILY 06/10/24 09/11/24 History
tablet (Fiber-Lax)
potassium chloride 10 mEq 20 meq (2 x 10 mEq) PO BID 06/21/24 09/11/24 Rx
capsule,extended release Supplement 30 days #30 caps
spironolactone 25 mg tablet 25 mg PO DAILY Fluid 06/21/24 09/11/24 Rx
retention/Swelling #0 tabs
folic acid 0.8 mg capsule 0.8 mg PO DAILY 07/30/24 09/11/24 History
torsemide 20 mg tablet 40 mg PO DAILY Fluid 07/30/24 09/11/24 History
Retention/Swelling
metoprolol succinate 50 mg 50 mg PO BID #60 tabs 08/10/24 09/11/24 Rx
tablet,extended release 24 hr
rifaximin 550 mg tablet (Xifaxan) 550 mg PO BID #60 tabs 08/10/24 09/11/24 Rx
sodium bicarbonate 650 mg tablet 1,300 mg (2 x 650 mg) PO BID #120 08/10/24 09/11/24 Rx
tabs
acetaminophen 325 mg tablet 650 mg PO Q6HPRN PRN mild pain 09/11/24 09/11/24 History
(Tylenol)
lactulose 20 gram oral packet 20 g PO QID 09/11/24 09/11/24 History
levalbuterol tartrate 45 2 inh inhalation R Q6HPRN PRN sob 09/11/24 09/11/24 History
mcg/actuation aerosol inhaler
(Xopenex HFA)
pantoprazole 40 mg tablet,delayed 40 mg PO DAILY Gastrointestinal 09/11/24 09/11/24 History
release issue
sennosides 8.6 mg tablet (senna) 8.6 mg PO BIDPRN PRN constipation 09/11/24 09/11/24 History
warfarin 1 mg tablet (Jantoven) 2 mg PO DIRECTED 09/11/24 09/11/24 History
Review of Systems
-
History Source: Patient and Family
All other systems: Negative unless noted
Respiratory: Trouble Breathing
Neurological: Weakness
Physical Exam
Vital Signs
Temp Pulse Resp BP Pulse Ox
98.1 F 83 23 103/74 97
09/11/24 04:06 09/11/24 12:01 09/11/24 12:01 09/11/24 12:01 09/11/24 12:01
Lab Results
09/11/24 04:32
09/11/24 04:32
Troponin I 0.023 ng/ml 09/11/24 04:32
Tkl-[id number] Pept 5370 pg/ml 09/11/24 04:32
Physical Exam
General: Well Developed and No Apparent Distress
HEENT: Normocephalic and Anicteric
Respiratory: Other (diminished to b/l bases)
Cardiac: Irregular Rhythm and Other (mechanical click ausculated)
Musculoskeletal: Edema (mild BLE edema)
Skin: Warm and Dry
Neuro: AO x 3
Psych: Calm
Impression / Plan
-
Weakness:
-PT/OT consulted
Acute on chronic HFpEF:
-agree with IV lasix, which requires intensive monitoring
-CHF consultation
-67 kg felt to be dry weight
-OP diuretic dosing is torsemide 40 mg daily and aldactone 25 mg daily. She was supposed to have PRN metolazone, but was not prescribed at d/c for rehab.
-in rehab, there was frequent soup. She does not monitor weights. CHF education.
-BP's on low end- monitor
Permanent A fib:
-Stable. Continue metoprolol.
-warfarin for OAC given mechanical MVR- follow INR's- currently in range
Mechanical MVR:
-stable by recent echo
-INR goal 2.5-3.0 (narrower goal due to bleeding in past)
Elevated ammonia:
-s/p lactulose
-management per primary
CKD:
-monitor with diuresis
Data:
Echo 06/11/24: EF 50-55%. Enlarged right ventricle with moderately reduced systolic function. Severely dilated right atrium with RA pressure of 15 mmHg. Normal functioning mechanical mitral valve. Normal functioning TAVR valve. Torrential tricuspid
regurgitation. Unable to estimate PASP.
Data Reviewed
-
EKG: Tracing Personally Visualized and interpreted (AFIB 91 BPM)
Radiology: Report Reviewed by me (CXR 09/11/24)
Medical Tests (Nuc Med, Echo etc): Report Reviewed by me (echo as noted)
Labs: Labs Reviewed by me
[2024-09-11] MEDS: LASIX 80 MG IV (17:11)
[2024-09-11] MEDS: COUMADIN 2 MG PO (17:12)
[2024-09-11] MEDS: XIFAXAN 550 MG PO (20:37)
[2024-09-11] MEDS: TOPROL XL 50 MG PO (20:37)
[2024-09-11] MEDS: KCL 20 MEQ PO (20:37)
[2024-09-11] MEDS: ZYLOPRIM 100 MG PO (22:36)
[2024-09-12] VITALS (8 sets, daily range): BP systolic 104–145; BP diastolic 55–93; PULSE 89–90; O2SAT 98; BMI 29.3
[2024-09-12] MEDS: XOPENEX HFA 45 MCG INHALER 2 PUFF INH (03:19)
[2024-09-12] MEDS: DUPHALAC/CHRONULAC 20 GRAMS PO ×4 (08:14→22:10)
[2024-09-12] MEDS: FOLVITE 0.8 MG PO (08:15)
[2024-09-12] MEDS: FIBERCON 625 MG PO (08:15)
[2024-09-12] MEDS: TOPROL XL 50 MG PO ×2 (08:15→19:34)
[2024-09-12] MEDS: FEOSOL 325 MG PO (08:16)
[2024-09-12] MEDS: ALDACTONE 25 MG PO (08:16)
[2024-09-12] MEDS: PROTONIX 40 MG PO (08:16)
[2024-09-12] MEDS: XIFAXAN 550 MG PO ×2 (08:16→19:41)
[2024-09-12] MEDS: KCL 20 MEQ PO ×2 (08:16→19:35)
[2024-09-12] MEDS: LASIX 80 MG IV ×2 (09:11→17:20)
[2024-09-12 09:16] LABS: INR 2.45; PT 26.6 Sec (11.4-14.6)
[2024-09-12 09:57] LABS: ALT (SGPT) 18 U/L (0-35); AST (SGOT) 63 U/L (14-36); Albumin 3.6 g/dl (3.5-5.0); Alkaline Phosphatase 227 U/L (38-126); Blood Urea Nitrogen 34 mg/dl (7-17); Calcium 9.8 mg/dl (8.4-10.2); Carbon Dioxide 23 mmol/L (22-30); Chloride 101 mmol/L (98-107); Estimated Creatinine Clearance 30 ml/min; Glucose 114 mg/dl (70-99); Sodium 135 mmol/L (135-145); Total Bilirubin 2.4 mg/dl (0.2-1.3); Total Protein 6.4 g/dl (6.3-8.2); eGFR 35.01
--- NOTE | 2024-09-12 10:23 | W.PN.CD ---
Today's Communication / Plan
-
Continue diuresis with 80 mg IV Lasix twice daily
Impression / Plan
-
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 Her weight is noted to be up from prior, with more edema. We are consulted for acute on chronic
HFPEF.
Acute on chronic HFpEF:
-agree with IV lasix 80mg BID, which requires intensive monitoring
-in rehab, there was frequent soup. She does not monitor weights. CHF education.
-67 kg felt to be dry weight
-OP diuretic dosing is torsemide 40 mg daily and aldactone 25 mg daily. She was supposed to have PRN metolazone, but was not prescribed at d/c for rehab.
-BP's on low end- monitor
Permanent A fib:
-Stable. Continue metoprolol.
-warfarin for OAC given mechanical MVR- follow INR's- currently in range
Weakness:
-PT/OT consulted
Mechanical MVR:
-stable by recent echo
-INR goal 2.5-3.0 (narrower goal due to bleeding in past)
Elevated ammonia:
-s/p lactulose
-management per primary
CKD:
-monitor with diuresis
Data:
Echo 06/11/24: EF 50-55%. Enlarged right ventricle with moderately reduced systolic function. Severely dilated right atrium with RA pressure of 15 mmHg. Normal functioning mechanical mitral valve. Normal functioning TAVR valve. Torrential tricuspid
regurgitation. Unable to estimate PASP.
Subjective: Feels about the same today. Telemetry unremarkable. She received Lasix 80 g IV twice daily yesterday. Net neg 600cc. Weight today is stable at 77.4 kg from 77.3 kg yesterday. Creatinine is 1.5 from 1.7 (at baseline).
Physical Exam
Vital Signs/Labs
Vital Signs
Temp Pulse Resp BP Pulse Ox
97.6 F 101 18 115/72 98
09/12/24 07:54 09/12/24 08:16 09/12/24 07:54 09/12/24 08:16 09/12/24 07:54
09/11/24 09/12/24 09/13/24
06:59 06:59 06:59
Actual Weight 77.3 kg 77.474 kg
09/11/24 04:32
09/12/24 08:45
PT 26.6 Sec (11.4-14.6) H 09/12/24 08:45
INR 2.45 09/12/24 08:45
Magnesium 2.0 mg/dl (1.6-2.3) 09/12/24 08:45
09/11/24
04:32
Ysb-Z-Ibvjvuixaou Pept 5370
LAB Results
09/11/24
04:32
Troponin I 0.023
Physical Exam
Constitutional: No acute distress and Comfortable
Cardiovascular: Rhythm/rate is irregular, Pedal edema present and Systolic murmur present
Respiratory: Respiratory effort normal and Lungs clear to auscul.
Data Reviewed
-
Date of Service: September 12, 2024
Medical Decision Making: Reviewed Test Results, Independent Historian Assessment, Test Interpretation and Review of Case with other Provider
EKG: Tracing Personally Visualized and interpreted
Echo: Report Reviewed by me
Labs: Labs Reviewed by me
[2024-09-12] MEDS: XOPENEX 1.25 MG INHALANT SOLUTION INH ×3 (12:09→20:15)
--- NOTE | 2024-09-12 12:34 | W.PN.HOSP.TC ---
Today's Communication/Plan
-
Continue with aggressive diuresis
Start patient on Xopenex
Continue with lactulose
PT and OT
Monitor labs
Daily INRs
Assessment / Plan
Assessment / Plan
General: Well Developed, Well Nourished and No Apparent Distress
HEENT: NormoCephalic, Moist mucous membranes and Atraumatic
Respiratory: mild exp wheezing
Cardiac: S1/S2 and Regular Rhythm; No Murmur or Rub
GI: Soft, Non Tender, Normal Bowel Sounds and Distended; No Organomegaly
Rectal: Deferred by Provider
Musculoskeletal: No Clubbing, No Cyanosis, Edema, Left Lower Extremity (chronic venous stasis ), Edema, Right Lower Extremity (chronic venous stasis ) and No Edema
Skin: No Rash
Neuro: Awake, Alert, Oriented, AO x 3 and Nonfocal/grossly intact
Psych: Calm
#Hepatic encephalopathy
#Chronic elevation of alk.phos
#Chronic transaminitis
# Liver cirrhosis
# Thrombocytopenia
Patient afebrile.
Start patient on lactulose and monitor bowel movements. Titrate lactulose based on bowel movements. Goal 3-4 loose bowel movements a day. Hold next dose of lactulose if already with 3-4 loose BM a day.
Continue rifaximin
Monitor mentation
#Acute on chronic HFpEF
#Mechanical MV
# s/p TAVR
#SVT s/p ICD
Patient dry weight on 67 kg. Patient with weight gain since discharge from the hospital last month
Start patient on Lasix IV 80 mg twice daily.
Continue with 25 mg Aldactone
Continue with p.o. KCl
Monitor creatinine closely. Requires invasive monitoring
Strict I's and O's. Daily weights.
Cardiology evaluation
#Permanent A.fib
Continue with metoprolol
Continue with 2 mg of Coumadin
INR therapeutic at 2.45. Check daily INR.
#Mild exp wheezing
start bronchodilators
# Ambulatory dysfunction likely secondary to congestive heart failure exacerbation and deconditioning
Physical and Occupational Therapy
May require placement.
Discussed with spouse about considering long-term care.
#CKD stage 3b
follow Cr - baseline 1.8
#chronic dissection of the abdominal aorta
Outpatient VascSx
#LUE non-occlusive DVT
unclear if subacute versus chronic
Hematology evaluated last admission- advised to cont Warfarin
#Hx of LGIB
small polyps and hemorrhoids on colonoscopy in Apr 2024
#DJD
tylenol
PT/OT
DVT ppx on Coumadin
DNR/DNI
Anticipated Discharge: > 48 hours
Subjective/Interval History
-
Date of Service: September 12, 2024
states of improvement in edema
Objective Data
-
Labs:
Laboratory Results
09/12/24
08:45
PT 26.6 H
INR 2.45
Sodium 135
Potassium 4.0
Chloride 101
Carbon Dioxide 23
BUN 34 H
Creatinine 1.5 H
Glucose 114 H
Calcium 9.8
Total Bilirubin 2.4 H
AST 63 H
ALT 18
Alkaline Phosphatase 227 H
Vital Signs:
Vital Signs
Temp Pulse Resp BP Pulse Ox
97.6 F 88 18 128/66 98
09/12/24 11:15 09/12/24 11:15 09/12/24 11:15 09/12/24 11:15 09/12/24 11:15
I&O
09/11/24 09/12/24 09/13/24
06:59 06:59 06:59
Intake Total 240 / 240
Output Total 900 / 900
Balance -660 / -660
Data Reviewed
-
Total Time Spent with Patient (in minutes): 55
--- NOTE | 2024-09-12 15:47 | CM ---
Case elizabeth reviewed patient's chart and met with patient and spouse, patient lives with spouse in a 2 story home with 2 steps to enter, patient is independent with adl's and uses a cane or walker with ambulation. Patient has a ramp to enter home
and stair glide to 2nd floor, patient was recently discharged from [facility] to home with [facility] visiting nurses.
Plan; Await PT/OT evaluations for discharge planning needs.
PCP: Dr. Kolb
Pharmacy: [facility]
[place]
[phone]
[2024-09-12] MEDS: COUMADIN 2 MG PO (17:09)
[2024-09-12] MEDS: ZYLOPRIM 100 MG PO (22:10)
[2024-09-13 03:26] VITALS: BP 92/67
[2024-09-13 07:53] VITALS: BP 114/74
[2024-09-13 07:59] LABS: INR 2.49; PT 26.9 Sec (11.4-14.6)
[2024-09-13 08:09] LABS: % Basophils 1.6 % (0-2); % Immature Granulocytes 0.2 % (0-0.5); % Lymphocytes 22.8 % (20.5-51.1); % Monocytes 14.1 % (1.7-9.3); % Neutrophils 57.3 % (42.2-75.2); Absolute Basophils 0.1 10^3/uL (0-0.2); Absolute Eosinophils 0.2 10^3/uL (0-0.7); Absolute Monocytes 0.6 10^3/uL (0.1-0.6); Absolute Neutrophils 2.6 10^3/uL (1.4-6.5); Hematocrit 37.2 % (37.0-47.0); Hemoglobin 11.9 g/dL (12.0-16.0); Mean Corpuscular Hgb 30.8 pg (27.0-31.0); Mean Corpuscular Volume 96.4 fL (81.0-99.0); Nucleated Red Blood Cells % 1.3 %; Platelet Count 65 10^3/uL (130-400); Red Blood Cell Count 3.86 10^6/uL (4.20-5.40); Red Cell Dist. Width 19.6 % (11.5-14.5); White Blood Cell Count 4.5 10^3/uL (4.8-10.8)
[2024-09-13] MEDS: XOPENEX 1.25 MG INHALANT SOLUTION INH ×3 (08:18→20:49)
[2024-09-13 08:33] LABS: ALT (SGPT) 18 U/L (0-35); AST (SGOT) 59 U/L (14-36); Albumin 3.4 g/dl (3.5-5.0); Alkaline Phosphatase 233 U/L (38-126); Blood Urea Nitrogen 33 mg/dl (7-17); Calcium 9.6 mg/dl (8.4-10.2); Carbon Dioxide 22 mmol/L (22-30); Chloride 100 mmol/L (98-107); Estimated Creatinine Clearance 30 ml/min; Glucose 104 mg/dl (70-99); Potassium 4.5 mmol/L (3.5-5.1); Sodium 133 mmol/L (135-145); Total Bilirubin 2.4 mg/dl (0.2-1.3); Total Protein 6.2 g/dl (6.3-8.2); eGFR 35.01
[2024-09-13] MEDS: FEOSOL 325 MG PO (10:06)
[2024-09-13] MEDS: XIFAXAN 550 MG PO ×2 (10:06→19:57)
[2024-09-13] MEDS: DUPHALAC/CHRONULAC 20 GRAMS PO ×4 (10:06→21:48)
[2024-09-13] MEDS: FIBERCON 625 MG PO (10:06)
[2024-09-13] MEDS: KCL 20 MEQ PO ×2 (10:07→19:54)
[2024-09-13] MEDS: PROTONIX 40 MG PO (10:07)
[2024-09-13] MEDS: FOLVITE 0.8 MG PO (10:07)
[2024-09-13] MEDS: ALDACTONE 25 MG PO (10:08)
[2024-09-13] MEDS: TOPROL XL 50 MG PO ×2 (10:08→19:54)
[2024-09-13] MEDS: LASIX 80 MG IV ×2 (10:52→16:10)
--- NOTE | 2024-09-13 11:01 | W.PN.HOSP.TC ---
Today's Communication/Plan
-
Continue with aggressive IV diuresis
Monitor creatinine closely
Daily INR
Monitor mentation
Continue with lactulose
PT/OT
Assessment / Plan
Assessment / Plan
General: Well Developed, Well Nourished and No Apparent Distress
HEENT: NormoCephalic, Moist mucous membranes and Atraumatic
Respiratory: mild exp wheezing improved
Cardiac: S1/S2 and Regular Rhythm; No Murmur or Rub
GI: Soft, Non Tender, Normal Bowel Sounds and Distended; No Organomegaly
Rectal: Deferred by Provider
Musculoskeletal: No Clubbing, No Cyanosis, Edema, Left Lower Extremity (chronic venous stasis ), Edema, Right Lower Extremity (chronic venous stasis ) and No Edema
Skin: No Rash
Neuro: Awake, Alert, Oriented, AO x 3 and Nonfocal/grossly intact
Psych: Calm
#Hepatic encephalopathy
#Chronic elevation of alk.phos
#Chronic transaminitis
# Liver cirrhosis
# Thrombocytopenia
Patient afebrile.
Start patient on lactulose and monitor bowel movements. Titrate lactulose based on bowel movements. Goal 3-4 loose bowel movements a day. Hold next dose of lactulose if already with 3-4 loose BM a day.
Continue rifaximin
Monitor mentation-improved and at baseline now.
#Acute on chronic HFpEF
#Mechanical MV
# s/p TAVR
#SVT s/p ICD
Patient dry weight on 67 kg. Patient with weight gain since discharge from the hospital last month
Start patient on Lasix IV 80 mg twice daily.
Continue with 25 mg Aldactone
Continue with p.o. KCl
Monitor creatinine closely. Requires invasive monitoring
Strict I's and O's. Daily weights.
Cardiology evaluation
#Permanent A.fib
Continue with metoprolol
Continue with 2 mg of Coumadin daily
INR therapeutic at 2.49. Check daily INR.
#Mild exp wheezing
start bronchodilators
# Ambulatory dysfunction likely secondary to congestive heart failure exacerbation and deconditioning
Physical and Occupational Therapy
May require placement.
Discussed with spouse about considering long-term care.
#CKD stage 3b
follow Cr - baseline 1.8
Creatinine holding with aggressive diuresis.
#chronic dissection of the abdominal aorta
Outpatient VascSx
#LUE non-occlusive DVT
unclear if subacute versus chronic
Hematology evaluated last admission- advised to cont Warfarin
#Hx of LGIB
small polyps and hemorrhoids on colonoscopy in Apr 2024
#DJD
tylenol
PT/OT
DVT ppx on Coumadin
DNR/DNI
Anticipated Discharge: > 48 hours
Subjective/Interval History
-
Date of Service: September 13, 2024
More awake and watching tv
states improvement in breathing
Objective Data
-
Labs:
Laboratory Results
09/13/24
07:12
WBC 4.5 L
Hgb 11.9 L
Hct 37.2
Plt Count 65 L
PT 26.9 H
INR 2.49
Sodium 133 L
Potassium 4.5
Chloride 100
Carbon Dioxide 22
BUN 33 H
Creatinine 1.5 H
Glucose 104 H
Calcium 9.6
Total Bilirubin 2.4 H
AST 59 H
ALT 18
Alkaline Phosphatase 233 H
Vital Signs:
Vital Signs
Temp Pulse Resp BP Pulse Ox
97.5 F 101 16 114/74 99
09/13/24 07:53 09/13/24 07:53 09/13/24 08:21 09/13/24 07:53 09/13/24 08:21
I&O
09/12/24 09/13/24 09/14/24
06:59 06:59 06:59
Intake Total 240 / 240 1080 / 1080
Output Total 900 / 900
Balance -660 / -660 1080 / 1080
Data Reviewed
-
Total Time Spent with Patient (in minutes): 55
[2024-09-13 11:22] VITALS: BP 110/67
--- NOTE | 2024-09-13 14:17 | W.PN.CD ---
Today's Communication / Plan
-
Continue diuresis with 80 mg IV Lasix twice daily
Please monitor strict I/O and obtain daily standing weights if possible
Impression / Plan
-
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 Her weight is noted to be up from prior, with more edema. We are consulted for acute on chronic
HFPEF.
Acute on chronic HFpEF:
-agree with IV lasix 80mg BID, which requires intensive monitoring
-in rehab, there was frequent soup. She does not monitor weights. CHF education.
-67 kg felt to be dry weight
-OP diuretic dosing is torsemide 40 mg daily and aldactone 25 mg daily. She was supposed to have PRN metolazone, but was not prescribed at d/c for rehab.
-BP's on low end- monitor
-Please monitor strict I/O and obtain standing weight if possible
Permanent A fib:
-Stable. Continue metoprolol.
-warfarin for OAC given mechanical MVR- follow INR's- currently in range
Weakness:
-PT/OT consulted
Mechanical MVR:
-stable by recent echo
-INR goal 2.5-3.0 (narrower goal due to bleeding in past)
Elevated ammonia:
-s/p lactulose
-management per primary
CKD:
-monitor with diuresis
Data:
Echo 06/11/24: EF 50-55%. Enlarged right ventricle with moderately reduced systolic function. Severely dilated right atrium with RA pressure of 15 mmHg. Normal functioning mechanical mitral valve. Normal functioning TAVR valve. Torrential tricuspid
regurgitation. Unable to estimate PASP.
Subjective: Feels about the same today. Legs look better. Telemetry permanent afib. She received Lasix 80 mg IV twice daily yesterday. I/O not documented. Weight is bed weight. Creatinine is 1.5 from 1.5 (at baseline).
Physical Exam
Vital Signs/Labs
Vital Signs
Temp Pulse Resp BP Pulse Ox
97.4 F 95 18 110/67 100
09/13/24 11:22 09/13/24 11:22 09/13/24 11:22 09/13/24 11:22 09/13/24 11:22
09/12/24 09/13/24 09/14/24
06:59 06:59 06:59
Actual Weight 77.474 kg 79.197 kg
09/13/24 07:12
09/13/24 07:12
PT 26.9 Sec (11.4-14.6) H 09/13/24 07:12
INR 2.49 09/13/24 07:12
Magnesium 2.0 mg/dl (1.6-2.3) 09/13/24 07:12
09/11/24
04:32
Glf-Y-Izqhqpqugon Pept 5370
LAB Results
09/11/24
04:32
Troponin I 0.023
Physical Exam
Constitutional: No acute distress and Comfortable
Cardiovascular: Pedal edema is absent, Rhythm/rate is irregular and Systolic murmur present
Respiratory: Respiratory effort normal and Lungs clear to auscul.
Data Reviewed
-
Date of Service: September 13, 2024
Medical Decision Making: Reviewed Test Results, Independent Historian Assessment, Test Interpretation and Review of Case with other Provider
EKG: Tracing Personally Visualized and interpreted
Echo: Report Reviewed by me
X-Ray/CT/US/MRI/NUC/PET: Report Reviewed by me
Labs: Labs Reviewed by me
[2024-09-13 15:01] VITALS: BP 120/65
[2024-09-13] MEDS: COUMADIN 2 MG PO (16:10)
[2024-09-13 19:55] VITALS: BP 113/63
[2024-09-13] MEDS: ZYLOPRIM 100 MG PO (21:50)
[2024-09-13 23:45] VITALS: BP 121/65
[2024-09-14 03:10] VITALS: BP 132/54
[2024-09-14 06:00] VITALS: BMI 27.3
[2024-09-14 07:00] VITALS: BP 109/70
[2024-09-14] MEDS: XOPENEX 1.25 MG INHALANT SOLUTION INH ×2 (07:19→13:31)
[2024-09-14 08:14] LABS: INR 2.51; PT 27.1 Sec (11.4-14.6)
[2024-09-14] MEDS: PROTONIX 40 MG PO (08:58)
[2024-09-14] MEDS: FOLVITE 0.8 MG PO (08:58)
[2024-09-14] MEDS: DUPHALAC/CHRONULAC 20 GRAMS PO ×4 (08:58→21:18)
[2024-09-14] MEDS: FEOSOL 325 MG PO (08:58)
[2024-09-14] MEDS: FIBERCON 625 MG PO (08:58)
[2024-09-14] MEDS: XIFAXAN 550 MG PO ×2 (08:58→21:18)
[2024-09-14] MEDS: KCL 20 MEQ PO ×2 (08:58→21:17)
[2024-09-14] MEDS: ALDACTONE 25 MG PO (08:58)
[2024-09-14] MEDS: TOPROL XL 50 MG PO ×2 (08:59→21:18)
[2024-09-14] MEDS: LASIX 80 MG IV ×2 (08:59→18:21)
[2024-09-14 11:00] VITALS: BP 119/73
--- NOTE | 2024-09-14 11:34 | W.PN.HOSP.TC ---
Today's Communication/Plan
-
Continue with aggressive diuresis
Await labs
May require metolazone
Monitor mentation
Out of bed as tolerated
Monitor bowel movements
Assessment / Plan
Assessment / Plan
General: Well Developed, Well Nourished and No Apparent Distress
HEENT: NormoCephalic, Moist mucous membranes and Atraumatic
Respiratory: mild exp wheezing improved
Cardiac: S1/S2 and Regular Rhythm; No Murmur or Rub
GI: Soft, Non Tender, Normal Bowel Sounds and Distended; No Organomegaly
Rectal: Deferred by Provider
Musculoskeletal: No Clubbing, No Cyanosis, Edema, Left Lower Extremity (chronic venous stasis ), Edema, Right Lower Extremity (chronic venous stasis ) and No Edema
Skin: No Rash
Neuro: Awake, Alert, Oriented, AO x 3 and Nonfocal/grossly intact
Psych: Calm
#Hepatic encephalopathy
#Chronic elevation of alk.phos
#Chronic transaminitis
# Liver cirrhosis
# Thrombocytopenia
Patient afebrile.
Start patient on lactulose and monitor bowel movements. Titrate lactulose based on bowel movements. Goal 3-4 loose bowel movements a day. Hold next dose of lactulose if already with 3-4 loose BM a day.
Continue rifaximin
Monitor mentation-improved and at baseline now.
#Acute on chronic HFpEF
#Mechanical MV
# s/p TAVR
#SVT s/p ICD
Patient dry weight on 67 kg. Patient with weight gain since discharge from the hospital last month
Start patient on Lasix IV 80 mg twice daily.
Continue with 25 mg Aldactone
Continue with p.o. KCl
Monitor creatinine closely. Requires invasive monitoring
Strict I's and O's. Daily weights. Standing weight at 72.2 kg. Continue with aggressive diuresis. May require metolazone. Awaiting creatinine.
Cardiology evaluation
#Permanent A.fib
Continue with metoprolol
Continue with 2 mg of Coumadin daily
INR therapeutic at 2.5. Check daily INR.
#Mild exp wheezing
start bronchodilators
Resolved
# Ambulatory dysfunction likely secondary to congestive heart failure exacerbation and deconditioning
Physical and Occupational Therapy
May require placement.
Discussed with spouse about considering long-term care.
#CKD stage 3b
follow Cr - baseline 1.8
Creatinine holding with aggressive diuresis.
#chronic dissection of the abdominal aorta
Outpatient VascSx
#LUE non-occlusive DVT
unclear if subacute versus chronic
Hematology evaluated last admission- advised to cont Warfarin
#Hx of LGIB
small polyps and hemorrhoids on colonoscopy in Apr 2024
#DJD
tylenol
PT/OT
DVT ppx on Coumadin
DNR/DNI
PT/OT with SNF. Case management for disposition.
Anticipated Discharge: > 48 hours
Subjective/Interval History
-
Date of Service: September 14, 2024
Patient resting in bed
Tolerating diet
States of increasing urinary output
Having loose bowel movements
Mentation has improved
Objective Data
-
Labs:
Laboratory Results
09/14/24 09/14/24
07:31 08:33
PT 27.1 H
INR 2.51
Sodium Cancelled Pending
Potassium Cancelled Pending
Chloride Cancelled Pending
Carbon Dioxide Cancelled Pending
BUN Cancelled Pending
Creatinine Cancelled Pending
Glucose Cancelled Pending
Calcium Cancelled Pending
Total Bilirubin Cancelled Pending
AST Cancelled Pending
ALT Cancelled Pending
Alkaline Phosphatase Cancelled Pending
Vital Signs:
Vital Signs
Temp Pulse Resp BP Pulse Ox
97.4 F 83 20 119/73 100
09/14/24 11:00 09/14/24 11:00 09/14/24 11:00 09/14/24 11:00 09/14/24 11:00
I&O
09/13/24 09/14/24 09/15/24
06:59 06:59 06:59
Intake Total 1080 / 1080 240 / 240
Balance 1080 / 1080 240 / 240
Data Reviewed
-
Total Time Spent with Patient (in minutes): 55
[2024-09-14 12:15] LABS: ALT (SGPT) 19 U/L (0-35); AST (SGOT) 62 U/L (14-36); Albumin 3.5 g/dl (3.5-5.0); Alkaline Phosphatase 238 U/L (38-126); Blood Urea Nitrogen 32 mg/dl (7-17); Calcium 9.9 mg/dl (8.4-10.2); Carbon Dioxide 21 mmol/L (22-30); Chloride 100 mmol/L (98-107); Estimated Creatinine Clearance 29 ml/min; Glucose 166 mg/dl (70-99); Potassium 4.3 mmol/L (3.5-5.1); Sodium 133 mmol/L (135-145); Total Bilirubin 2.5 mg/dl (0.2-1.3); Total Protein 6.4 g/dl (6.3-8.2); eGFR 35.01
[2024-09-14 15:00] VITALS: BP 106/68
[2024-09-14] MEDS: COUMADIN 2 MG PO (17:32)
--- NOTE | 2024-09-14 17:39 | W.PN.CD ---
Today's Communication / Plan
-
Continue 80 mg IV Lasix twice daily
May need metolazone tomorrow if weight is not down
Impression / Plan
-
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 Her weight is noted to be up from prior, with more edema. We are consulted for acute on chronic
HFPEF.
Acute on chronic HFpEF:
-agree with IV lasix 80mg BID, which requires intensive monitoring. May need metolazone tomorrow if no improvement in weight.
-in rehab, there was frequent soup. She does not monitor weights. CHF education.
-67 kg felt to be dry weight
-OP diuretic dosing is torsemide 40 mg daily and aldactone 25 mg daily. She was supposed to have PRN metolazone, but was not prescribed at d/c for rehab.
-BP's on low end- monitor
-Please monitor strict I/O and obtain standing weight if possible
Permanent A fib:
-Stable. Continue metoprolol.
-warfarin for OAC given mechanical MVR- follow INR's- currently in range
Weakness:
-PT/OT consulted
Mechanical MVR:
-stable by recent echo
-INR goal 2.5-3.0 (narrower goal due to bleeding in past)
Elevated ammonia:
-s/p lactulose
-management per primary
CKD:
-monitor with diuresis
Data:
Echo 06/11/24: EF 50-55%. Enlarged right ventricle with moderately reduced systolic function. Severely dilated right atrium with RA pressure of 15 mmHg. Normal functioning mechanical mitral valve. Normal functioning TAVR valve. Torrential tricuspid
regurgitation. Unable to estimate PASP.
Subjective: Patient is sleepy today. Her thinks lower extremity swelling may be mildly improved but hard to tell. No documented urine output because it is mixed with stool. Today is the first standing weight at 72 kg. Creatinine stable.
Physical Exam
Vital Signs/Labs
Vital Signs
Temp Pulse Resp BP Pulse Ox
97.4 F 85 20 106/68 99
09/14/24 15:00 09/14/24 15:00 09/14/24 15:00 09/14/24 15:00 09/14/24 15:00
09/13/24 09/14/24 09/15/24
06:59 06:59 06:59
Actual Weight 79.197 kg 72.206 kg
09/13/24 07:12
09/14/24 11:44
PT 27.1 Sec (11.4-14.6) H 09/14/24 07:31
INR 2.51 09/14/24 07:31
Magnesium 2.0 mg/dl (1.6-2.3) 09/14/24 11:44
09/11/24
04:32
Kzg-U-Xybpnzciwim Pept 5370
Physical Exam
Constitutional: No acute distress and Comfortable
Cardiovascular: Rhythm & rate is regular, Pedal edema present and S1S2 is normal
Respiratory: Respiratory effort normal and Lungs clear to auscul.
Data Reviewed
-
Date of Service: September 14, 2024
Medical Decision Making: Reviewed Test Results, Independent Historian Assessment, Test Interpretation and Review of Case with other Provider
EKG: Tracing Personally Visualized and interpreted
Echo: Report Reviewed by me
Labs: Labs Reviewed by me
[2024-09-14 19:47] VITALS: BP 127/59
[2024-09-14] MEDS: ZYLOPRIM 100 MG PO (21:18)
[2024-09-14 23:41] VITALS: BP 130/68
[2024-09-15] VITALS (8 sets, daily range): BP systolic 99–129; BP diastolic 56–87; PULSE 84; O2SAT 98; BMI 27.3
--- NOTE | 2024-09-15 08:08 | W.PN.CD ---
Today's Communication / Plan
-
continue IV lasix 80mg BID, which requires intensive monitoring. Metolazone 5mg, 30 min prior to AM dose today.
Impression / Plan
-
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 Her weight is noted to be up from prior, with more edema. We are consulted for acute on chronic
HFPEF.
Acute on chronic HFpEF: severe, with cardiorenal syndrome
-in rehab, there was frequent soup. She does not monitor weights. CHF education.
-67 kg felt to be dry weight
-OP diuretic dosing is torsemide 40 mg daily and aldactone 25 mg daily. She was supposed to have PRN metolazone, but was not prescribed at d/c for rehab.
-continue IV lasix 80mg BID, which requires intensive monitoring. Metolazone 5mg, 30 min prior to AM dose today.
Permanent A fib:
-Stable. Continue metoprolol.
-warfarin for OAC given mechanical MVR- follow INR's- currently in range
Weakness:
-PT/OT consulted
Mechanical MVR:
-stable by recent echo
-INR goal 2.5-3.0 (narrower goal due to bleeding in past)
Elevated ammonia:
-s/p lactulose
-management per primary
CKD4:
-monitor with diuresis
Data:
Echo 06/11/24: EF 50-55%. Enlarged right ventricle with moderately reduced systolic function. Severely dilated right atrium with RA pressure of 15 mmHg. Normal functioning mechanical mitral valve. Normal functioning TAVR valve. Torrential tricuspid
regurgitation. Unable to estimate PASP.
Physical Exam
Vital Signs/Labs
Vital Signs
Temp Pulse Resp BP Pulse Ox
97.6 F 102 20 120/87 99
09/15/24 03:02 09/15/24 03:02 09/15/24 03:02 09/15/24 03:02 09/15/24 03:02
09/14/24 09/15/24 09/16/24
06:59 06:59 06:59
Actual Weight 72.206 kg 72.167 kg
09/13/24 07:12
PT 27.0 Sec (11.4-14.6) H 09/15/24 06:11
INR 2.50 09/15/24 06:11
Magnesium 2.0 mg/dl (1.6-2.3) 09/14/24 11:44
09/11/24
04:32
Yfv-U-Fwuesbtggbs Pept 5370
Physical Exam
Constitutional: No acute distress and Comfortable
EENT: Moist mucous membranes
Cardiovascular: Rhythm/rate is irregular, Pedal edema present, JVD present and Other (+mechanical valve click)
Respiratory: Respiratory effort normal
Neuro/Psych: AO x 3
Data Reviewed
-
Date of Service: September 15, 2024
EKG: Other (Tele: A fib 80s, PVC's)
Labs: Labs Reviewed by me
[2024-09-15 08:09] LABS: ALT (SGPT) 18 U/L (0-35); AST (SGOT) 67 U/L (14-36); Albumin 3.5 g/dl (3.5-5.0); Alkaline Phosphatase 217 U/L (38-126); Blood Urea Nitrogen 34 mg/dl (7-17); Calcium 9.5 mg/dl (8.4-10.2); Carbon Dioxide 19 mmol/L (22-30); Chloride 98 mmol/L (98-107); Estimated Creatinine Clearance 31 ml/min; Glucose 122 mg/dl (70-99); Potassium 5.4 mmol/L (3.5-5.1); Sodium 129 mmol/L (135-145); Total Bilirubin 2.3 mg/dl (0.2-1.3); Total Protein 6.1 g/dl (6.3-8.2); eGFR 38.03
[2024-09-15] MEDS: DUPHALAC/CHRONULAC 20 GRAMS PO (08:38)
[2024-09-15] MEDS: ZAROXOLYN 5 MG PO (08:38)
[2024-09-15] MEDS: LASIX 80 MG IV ×2 (08:39→16:16)
[2024-09-15] MEDS: FOLVITE 0.8 MG PO (08:39)
[2024-09-15] MEDS: PROTONIX 40 MG PO (08:39)
[2024-09-15] MEDS: FEOSOL 325 MG PO (08:39)
[2024-09-15] MEDS: FIBERCON 625 MG PO (08:39)
[2024-09-15] MEDS: XIFAXAN 550 MG PO ×2 (08:40→20:38)
[2024-09-15] MEDS: TOPROL XL 50 MG PO ×2 (08:40→20:38)
[2024-09-15] MEDS: KCL PO (08:40)
[2024-09-15] MEDS: ALDACTONE PO (08:41)
--- NOTE | 2024-09-15 11:48 | W.PN.HOSP.TC ---
Today's Communication/Plan
-
cont with aggressive diuresis
hold kcl/aldactone
cont lactulose
pt/ot
Assessment / Plan
Assessment / Plan
General: Well Developed, Well Nourished and No Apparent Distress
HEENT: NormoCephalic, Moist mucous membranes and Atraumatic
Respiratory: dec bs
Cardiac: S1/S2 and Regular Rhythm; No Murmur or Rub
GI: Soft, Non Tender, Normal Bowel Sounds and Distended; No Organomegaly
Rectal: Deferred by Provider
Musculoskeletal: No Clubbing, No Cyanosis, Edema, Left Lower Extremity (chronic venous stasis ), Edema, Right Lower Extremity (chronic venous stasis ) and No Edema
Skin: No Rash
Neuro: Awake, Alert, Oriented, AO x 3 and Nonfocal/grossly intact
Psych: Calm
#Hepatic encephalopathy
#Chronic elevation of alk.phos
#Chronic transaminitis
# Liver cirrhosis
# Thrombocytopenia
Patient afebrile.
Start patient on lactulose and monitor bowel movements. Titrate lactulose based on bowel movements. Goal 3-4 loose bowel movements a day. Hold next dose of lactulose if already with 3-4 loose BM a day.
Continue rifaximin
Monitor mentation-improved and at baseline now.
#Acute on chronic HFpEF
#Mechanical MV
# s/p TAVR
#SVT s/p ICD
Patient dry weight on 67 kg. Patient with weight gain since discharge from the hospital last month
Start patient on Lasix IV 80 mg twice daily. Requires invasive monitoring.
hold with 25 mg Aldactone
hold with p.o. KCl
Monitor creatinine closely. Requires invasive monitoring
Strict I's and O's. Daily weights. Standing weight at 72.2 kg. Continue with aggressive diuresis. metolazone today.
Cardiology evaluation
#Permanent A.fib
Continue with metoprolol
Continue with 2 mg of Coumadin daily
INR therapeutic at 2.5. Check daily INR.
#Mild hyponatremia
monitor closely with diuresis
#Mild hyperkalemia
hold po kcl/aldactone for today
#Mild exp wheezing
start bronchodilators
Resolved
# Ambulatory dysfunction likely secondary to congestive heart failure exacerbation and deconditioning
Physical and Occupational Therapy
May require placement.
Discussed with spouse about considering long-term care.
#chico on CKD stage 3b
follow Cr
Creatinine holding with aggressive diuresis.
#chronic dissection of the abdominal aorta
Outpatient VascSx
#LUE non-occlusive DVT
unclear if subacute versus chronic
Hematology evaluated last admission- advised to cont Warfarin
#Hx of LGIB
small polyps and hemorrhoids on colonoscopy in Apr 2024
#DJD
tylenol
PT/OT
DVT ppx on Coumadin
DNR/DNI
PT/OT with SNF. Case management for disposition.
Anticipated Discharge: > 48 hours
Subjective/Interval History
-
Date of Service: September 15, 2024
had 1 loose bm this morning
sitting in chair
states of increase urination
Objective Data
-
Labs:
Laboratory Results
09/15/24
06:11
PT 27.0 H
INR 2.50
Sodium 129 L
Potassium 5.4 H D
Chloride 98
Carbon Dioxide 19 L
BUN 34 H
Creatinine 1.4 H
Glucose 122 H
Calcium 9.5
Total Bilirubin 2.3 H
AST 67 H
ALT 18
Alkaline Phosphatase 217 H
Vital Signs:
Vital Signs
Temp Pulse Resp BP Pulse Ox
97.3 F 90 20 111/77 100
09/15/24 11:00 09/15/24 11:00 09/15/24 11:00 09/15/24 11:00 09/15/24 11:00
I&O
09/14/24 09/15/24 09/16/24
06:59 06:59 06:59
Intake Total 240 / 240 1080 / 1080
Balance 240 / 240 1080 / 1080
Data Reviewed
-
Total Time Spent with Patient (in minutes): 56
[2024-09-15] MEDS: DUPHALAC/CHRONULAC PO ×3 (12:09→22:16)
[2024-09-15] MEDS: COUMADIN 2 MG PO (16:16)
[2024-09-15] MEDS: ZYLOPRIM 100 MG PO (22:19)
[2024-09-16] VITALS (7 sets, daily range): BP systolic 95–136; BP diastolic 62–89; BMI 27.2
[2024-09-16] MEDS: FEOSOL 325 MG PO (08:06)
[2024-09-16] MEDS: DUPHALAC/CHRONULAC 20 GRAMS PO ×2 (08:06→21:15)
[2024-09-16] MEDS: PROTONIX 40 MG PO (08:07)
[2024-09-16] MEDS: TOPROL XL 50 MG PO ×2 (08:07→21:12)
[2024-09-16] MEDS: XIFAXAN 550 MG PO ×2 (08:08→21:13)
[2024-09-16] MEDS: FIBERCON 625 MG PO (08:08)
[2024-09-16] MEDS: FOLVITE 0.8 MG PO (08:08)
[2024-09-16] MEDS: LASIX 80 MG IV ×2 (08:08→17:12)
[2024-09-16 08:11] LABS: INR 2.52; PT 27.2 Sec (11.4-14.6)
[2024-09-16] MEDS: ALDACTONE 25 MG PO (08:12)
[2024-09-16 08:43] LABS: ALT (SGPT) 18 U/L (0-35); AST (SGOT) 60 U/L (14-36); Albumin 3.5 g/dl (3.5-5.0); Alkaline Phosphatase 241 U/L (38-126); Blood Urea Nitrogen 41 mg/dl (7-17); Calcium 9.5 mg/dl (8.4-10.2); Carbon Dioxide 22 mmol/L (22-30); Chloride 95 mmol/L (98-107); Estimated Creatinine Clearance 29 ml/min; Glucose 107 mg/dl (70-99); Potassium 4.3 mmol/L (3.5-5.1); Sodium 130 mmol/L (135-145); Total Bilirubin 2.2 mg/dl (0.2-1.3); Total Protein 6.1 g/dl (6.3-8.2); eGFR 35.01
--- NOTE | 2024-09-16 09:57 | W.PN.CD ---
Today's Communication / Plan
-
IV diuresis metolazone this afternoon
Impression / Plan
-
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 Her weight is noted to be up from prior, with more edema. We are consulted for acute on chronic
HFPEF.
Acute on chronic HFpEF: severe, with cardiorenal syndrome; her weight is elevated and will be difficult to achieve dry weight
-in rehab, there was frequent soup. She does not monitor weights. CHF education.
-67 kg felt to be dry weight
-OP diuretic dosing is torsemide 40 mg daily and aldactone 25 mg daily. She was supposed to have PRN metolazone, but was not prescribed at d/c for rehab.
-continue IV lasix 80mg BID, which requires intensive monitoring. Metolazone 5mg, 30 min prior to PM dose today.
Permanent A fib:
-Stable. Continue metoprolol.
-warfarin for OAC given mechanical MVR- follow INR's- currently in range
Weakness:
-PT/OT consulted
Mechanical MVR:
-stable by recent echo
-INR goal 2.5-3.0 (narrower goal due to bleeding in past)
Elevated ammonia:
-s/p lactulose
-management per primary
CKD4:
-monitor with diuresis
Subjective: Feels well breathing stable
Data:
Echo 06/11/24: EF 50-55%. Enlarged right ventricle with moderately reduced systolic function. Severely dilated right atrium with RA pressure of 15 mmHg. Normal functioning mechanical mitral valve. Normal functioning TAVR valve. Torrential tricuspid
regurgitation. Unable to estimate PASP.
Physical Exam
Vital Signs/Labs
Vital Signs
Temp Pulse Resp BP Pulse Ox
97.6 F 76 20 95/62 100
09/16/24 07:00 09/16/24 07:00 09/16/24 07:00 09/16/24 08:07 09/16/24 07:00
09/15/24 09/16/24 09/17/24
06:59 06:59 06:59
Actual Weight 159 lb 1.6 oz 158 lb 3 oz
09/13/24 07:12
09/16/24 06:31
PT 27.2 Sec (11.4-14.6) H 09/16/24 06:31
INR 2.52 09/16/24 06:31
Magnesium 2.0 mg/dl (1.6-2.3) 09/14/24 11:44
09/11/24
04:32
Knq-W-Kumhqxqspdt Pept 5370
Physical Exam
Constitutional: No acute distress
EENT: Anicteric
Cardiovascular: Rhythm/rate is irregular and Pedal edema present
Respiratory: Respiratory effort normal and Crackles Present
GI: Soft
Neuro/Psych: Alert and Oriented
Data Reviewed
-
Date of Service: September 16, 2024
EKG: Tracing Personally Visualized and interpreted (af)
Echo: Report Reviewed by me
Labs: Labs Reviewed by me
--- NOTE | 2024-09-16 11:09 | W.PN.HOSP.TC ---
Today's Communication/Plan
-
Cont with aggressive diuresis
hold aldactone
cont KCL/Lasix
daily weight
SNF on dc
Assessment / Plan
Assessment / Plan
General: Well Developed, Well Nourished and No Apparent Distress
HEENT: NormoCephalic, Moist mucous membranes and Atraumatic
Respiratory: dec bs
Cardiac: S1/S2 and Regular Rhythm; No Murmur or Rub
GI: Soft, Non Tender, Normal Bowel Sounds and Distended; No Organomegaly
Rectal: Deferred by Provider
Musculoskeletal: No Clubbing, No Cyanosis, Edema, Left Lower Extremity (chronic venous stasis ), Edema, Right Lower Extremity (chronic venous stasis ) -edema is improving
Skin: No Rash
Neuro: Awake, Alert, Oriented, AO x 3 and Nonfocal/grossly intact
Psych: Calm
#Hepatic encephalopathy
#Chronic elevation of alk.phos
#Chronic transaminitis
# Liver cirrhosis
# Thrombocytopenia
Patient afebrile.
Start patient on lactulose and monitor bowel movements. Titrate lactulose based on bowel movements. Goal 3-4 loose bowel movements a day. Hold next dose of lactulose if already with 3-4 loose BM a day.
Continue rifaximin
Monitor mentation-improved and at baseline now.
#Acute on chronic HFpEF
#Mechanical MV
# s/p TAVR
#SVT s/p ICD
Patient dry weight on 67 kg. Patient with weight gain since discharge from the hospital last month
Start patient on Lasix IV 80 mg twice daily. Requires invasive monitoring.
hold with 25 mg Aldactone as soft BP.
Cont with p.o. KCl
Monitor creatinine closely. Requires invasive monitoring
Strict I's and O's. Daily weights. Standing weight at 71.7 kg. Continue with aggressive diuresis. metolazone again today.
Cardiology evaluation
#Permanent A.fib
Continue with metoprolol
Continue with 2 mg of Coumadin daily
INR therapeutic at 2.5. Check daily INR.
#Mild hyponatremia
monitor closely with diuresis
#Mild hyperkalemia
K improved.
#Mild exp wheezing
start bronchodilators
Resolved
# Ambulatory dysfunction likely secondary to congestive heart failure exacerbation and deconditioning
Physical and Occupational Therapy
May require placement.
Discussed with spouse about considering long-term care.
#chico on CKD stage 3b
follow Cr
Creatinine holding with aggressive diuresis.
#chronic dissection of the abdominal aorta
Outpatient VascSx
#LUE non-occlusive DVT
unclear if subacute versus chronic
Hematology evaluated last admission- advised to cont Warfarin
#Hx of LGIB
small polyps and hemorrhoids on colonoscopy in Apr 2024
#DJD
tylenol
PT/OT
DVT ppx on Coumadin
DNR/DNI
PT/OT with SNF. Case management for disposition.
Anticipated Discharge: > 48 hours
Subjective/Interval History
-
Date of Service: September 16, 2024
sitting in chair
states of passing increasing urine
Soft BP this am
Objective Data
-
Labs:
Laboratory Results
09/16/24
06:31
PT 27.2 H
INR 2.52
Sodium 130 L
Potassium 4.3
Chloride 95 L
Carbon Dioxide 22
BUN 41 H
Creatinine 1.5 H
Glucose 107 H
Calcium 9.5
Total Bilirubin 2.2 H
AST 60 H
ALT 18
Alkaline Phosphatase 241 H
Vital Signs:
Vital Signs
Temp Pulse Resp BP Pulse Ox
97.6 F 76 20 95/62 100
09/16/24 07:00 09/16/24 07:00 09/16/24 07:00 09/16/24 08:07 09/16/24 07:00
I&O
09/15/24 09/16/24 09/17/24
06:59 06:59 06:59
Intake Total 1080 / 1080 840 / 840
Balance 1080 / 1080 840 / 840
Data Reviewed
-
Total Time Spent with Patient (in minutes): 55
[2024-09-16] MEDS: DUPHALAC/CHRONULAC PO ×2 (12:01→16:40)
--- NOTE | 2024-09-16 16:20 | CM ---
support services manager reviewed patient's chart and per updated PT/OT notes recommendation is for skilled placement placement, options reviewed [facility] and [facility] sent to [facility] today.
Plan; Skilled placement.
[2024-09-16] MEDS: ZAROXOLYN 5 MG PO (17:11)
[2024-09-16] MEDS: KCL 20 MEQ PO (17:12)
[2024-09-16] MEDS: ZYLOPRIM 100 MG PO (21:13)
[2024-09-17 03:08] VITALS: BP 111/60
[2024-09-17 05:19] VITALS: BMI 27.2
[2024-09-17 07:22] VITALS: BP 103/57
--- NOTE | 2024-09-17 07:57 | W.PN.CD ---
Today's Communication / Plan
-
transition to PO torsemide and monitor weight, Cr for another day
Impression / Plan
-
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 Her weight is noted to be up from prior, with more edema. We are consulted for acute on chronic
HFPEF.
Acute on chronic HFpEF: severe, with cardiorenal syndrome; her weight is elevated and will be difficult to achieve dry weight
-in rehab, there was frequent soup. She does not monitor weights. CHF education.
-she is lying flat in bed and comfortable: will stop diuresis at 72 kg
-resume diuretic dosing: torsemide 40 mg daily and aldactone 25 mg daily, Kcl 20 mEq bid . She was supposed to have PRN metolazone, but was not prescribed at d/c for rehab.
-continue to monitor weight and Cr for another day to make sure stable on PO regimen: high risk situation
-on d/c, would make metolazone 5mg M//, 30 min prior to torsemide
Permanent A fib:
-Stable. Continue metoprolol.
-warfarin for OAC given mechanical MVR- follow INR's- currently in range
Weakness:
-PT/OT consulted
Mechanical MVR:
-stable by recent echo
-INR goal 2.5-3.0 (narrower goal due to bleeding in past)
Elevated ammonia:
-s/p lactulose
-management per primary
CKD4:
-monitor with diuresis
Subjective: lying flat in bed without SOB
Data:
Echo 06/11/24: EF 50-55%. Enlarged right ventricle with moderately reduced systolic function. Severely dilated right atrium with RA pressure of 15 mmHg. Normal functioning mechanical mitral valve. Normal functioning TAVR valve. Torrential tricuspid
regurgitation. Unable to estimate PASP.
Physical Exam
Vital Signs/Labs
Vital Signs
Temp Pulse Resp BP Pulse Ox
97.5 F 84 18 103/57 99
09/17/24 07:22 09/17/24 07:22 09/17/24 07:22 09/17/24 07:22 09/17/24 07:22
09/16/24 09/17/24 09/18/24
06:59 06:59 06:59
Actual Weight 71.753 kg 71.894 kg
09/13/24 07:12
PT 27.2 Sec (11.4-14.6) H 09/16/24 06:31
INR 2.52 09/16/24 06:31
Magnesium 2.0 mg/dl (1.6-2.3) 09/14/24 11:44
09/11/24
04:32
Wjz-H-Euwroqesdhz Pept 5370
Physical Exam
Constitutional: No acute distress and Comfortable
EENT: Moist mucous membranes
Cardiovascular: Rhythm/rate is irregular, Pedal edema present, JVD present and Other (+mechanical valve click)
Respiratory: Respiratory effort normal
Neuro/Psych: Alert
Data Reviewed
-
Date of Service: September 17, 2024
EKG: Other (Tele: A fib 80s)
Labs: Labs Reviewed by me
[2024-09-17] MEDS: FOLVITE 0.8 MG PO (08:55)
[2024-09-17] MEDS: PROTONIX 40 MG PO (08:55)
[2024-09-17] MEDS: XIFAXAN 550 MG PO ×2 (08:55→20:52)
[2024-09-17] MEDS: TOPROL XL 50 MG PO ×2 (08:55→20:52)
[2024-09-17] MEDS: DUPHALAC/CHRONULAC 20 GRAMS PO ×4 (08:55→22:12)
[2024-09-17] MEDS: FEOSOL 325 MG PO (08:55)
[2024-09-17] MEDS: FIBERCON 625 MG PO (08:55)
[2024-09-17] MEDS: KCL 20 MEQ PO ×2 (08:55→16:14)
[2024-09-17] MEDS: DEMADEX PO (08:57)
--- NOTE | 2024-09-17 10:23 | W.PN.HOSP.TC ---
Today's Communication/Plan
-
awaiting labs
trend inr
monitor on po diuretics
ongoing dispo to SNF
Assessment / Plan
Assessment / Plan
General: Well Developed, Well Nourished and No Apparent Distress
HEENT: NormoCephalic, Moist mucous membranes and Atraumatic
Respiratory: dec bs
Cardiac: S1/S2 and Regular Rhythm; No Murmur or Rub
GI: Soft, Non Tender, Normal Bowel Sounds and Distended; No Organomegaly
Rectal: Deferred by Provider
Musculoskeletal: No Clubbing, No Cyanosis, Edema, Left Lower Extremity (chronic venous stasis ), Edema, Right Lower Extremity (chronic venous stasis ) -edema has improved since admission
Skin: No Rash
Neuro: Awake, Alert, Oriented, AO x 3 and Nonfocal/grossly intact
Psych: Calm
#Hepatic encephalopathy
#Chronic elevation of alk.phos
#Chronic transaminitis
# Liver cirrhosis
# Thrombocytopenia
Patient afebrile.
Start patient on lactulose and monitor bowel movements. Titrate lactulose based on bowel movements. Goal 3-4 loose bowel movements a day. Hold next dose of lactulose if already with 3-4 loose BM a day.
Continue rifaximin
Monitor mentation-improved and at baseline now.
#Acute on chronic HFpEF
#Mechanical MV
# s/p TAVR
#SVT s/p ICD
Patient dry weight on 67 kg. Patient with weight gain since discharge from the hospital last month
off Lasix IV 80 mg twice daily. Requires invasive monitoring.
Cont with p.o. KCl
Monitor creatinine closely.
Strict I's and O's. Daily weights.
Per cardiology plan to transition off of IV diuresis to torsemide 40 mg daily home dose. Will restart Aldactone at 12.5 mg at noon as with soft blood pressure at times. Can increase to home dose 25mg if BP can tolerate.
Zaroxolyn 5 mg 3 times daily weekly on discharge
Cardiology evaluation
#Permanent A.fib
Continue with metoprolol
Continue with 2 mg of Coumadin daily
INR therapeutic at 2.5. Check daily INR.
#Mild hyponatremia
monitor closely with diuresis
#Mild hyperkalemia
K improved.
#Mild exp wheezing
start bronchodilators
Resolved
# Ambulatory dysfunction likely secondary to congestive heart failure exacerbation and deconditioning
Physical and Occupational Therapy
May require placement.
Discussed with spouse about considering long-term care.
#chico on CKD stage 3b
follow Cr
Creatinine holding with aggressive diuresis.
#chronic dissection of the abdominal aorta
Outpatient VascSx
#LUE non-occlusive DVT
unclear if subacute versus chronic
Hematology evaluated last admission- advised to cont Warfarin
#Hx of LGIB
small polyps and hemorrhoids on colonoscopy in Apr 2024
#DJD
tylenol
PT/OT
DVT ppx on Coumadin
DNR/DNI
PT/OT with SNF. Case management for disposition.
Anticipated Discharge: 24 - 48 hours
Subjective/Interval History
-
Date of Service: September 17, 2024
sitting in chair
no overnight events
denies sob
Objective Data
-
Labs:
Laboratory Results
09/17/24
06:00
PT Pending
INR Pending
Sodium Pending
Potassium Pending
Chloride Pending
Carbon Dioxide Pending
BUN Pending
Creatinine Pending
Glucose Pending
Calcium Pending
Total Bilirubin Pending
AST Pending
ALT Pending
Alkaline Phosphatase Pending
Vital Signs:
Vital Signs
Temp Pulse Resp BP Pulse Ox
97.5 F 84 18 103/57 99
09/17/24 07:22 09/17/24 07:22 09/17/24 07:22 09/17/24 07:22 09/17/24 07:22
I&O
09/16/24 09/17/24 09/18/24
06:59 06:59 06:59
Intake Total 840 / 840 1680 / 1680
Balance 840 / 840 1680 / 1680
Data Reviewed
-
Total Time Spent with Patient (in minutes): 55
[2024-09-17 11:03] VITALS: BP 104/58
--- NOTE | 2024-09-17 11:41 | CM ---
manager software received a call from patient's physician that patient is possibly stable for discharge tomorrow, plan is for skilled placement and patient and spouse have selected [facility], referral was sent to [facility] and case management rn reached
out to Sonia in admissions at [facility] and is waiting on a determination.
Plan; Waiting on a determination from admissions at [facility].
[2024-09-17] MEDS: ALDACTONE 12.5 MG PO (11:59)
[2024-09-17 14:53] LABS: INR 2.16; PT 24.5 Sec (11.4-14.6)
[2024-09-17 15:40] VITALS: BP 121/65
[2024-09-17] MEDS: COUMADIN 2.5 MG PO (17:03)
[2024-09-17 20:52] VITALS: BP 129/83
[2024-09-17] MEDS: ZYLOPRIM 100 MG PO (22:12)
[2024-09-17 23:12] VITALS: BP 115/60
[2024-09-18 05:28] VITALS: BMI 27.0
[2024-09-18 07:15] VITALS: BP 109/57
[2024-09-18 08:10] LABS: % Basophils 1.8 % (0-2); % Eosinophils 3.8 % (0-6); % Immature Granulocytes 0.2 % (0-0.5); % Lymphocytes 17.9 % (20.5-51.1); % Monocytes 12.1 % (1.7-9.3); % Neutrophils 64.2 % (42.2-75.2); Absolute Basophils 0.1 10^3/uL (0-0.2); Absolute Eosinophils 0.2 10^3/uL (0-0.7); Absolute Lymphocytes 0.8 10^3/uL (1.2-3.4); Absolute Monocytes 0.6 10^3/uL (0.1-0.6); Absolute Neutrophils 2.9 10^3/uL (1.4-6.5); Hematocrit 33.4 % (37.0-47.0); Hemoglobin 11.5 g/dL (12.0-16.0); Mean Corp Hgb Conc. 34.4 g/dL (33.0-37.0); Mean Corpuscular Hgb 31.9 pg (27.0-31.0); Mean Corpuscular Volume 92.5 fL (81.0-99.0); Nucleated Red Blood Cells % 0.4 %; Platelet Count 68 10^3/uL (130-400); Red Blood Cell Count 3.61 10^6/uL (4.20-5.40); Red Cell Dist. Width 18.8 % (11.5-14.5); White Blood Cell Count 4.5 10^3/uL (4.8-10.8)
--- NOTE | 2024-09-18 08:15 | W.PN.CD ---
Today's Communication / Plan
-
cont meds
We will sign off please call with questions/concerns.
We will schedule follow up.
Impression / Plan
-
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 Her weight is noted to be up from prior, with more edema. We are consulted for acute on chronic
HFPEF.
Acute on chronic HFpEF: severe, with cardiorenal syndrome; her weight is elevated and will be difficult to achieve dry weight
-in rehab, there was frequent soup. She does not monitor weights. CHF education.
-she is lying flat in bed and comfortable: will stop diuresis at 72 kg
-resume diuretic dosing: torsemide 40 mg daily and aldactone 25 mg daily, Kcl 20 mEq bid . She was supposed to have PRN metolazone, but was not prescribed at d/c for rehab.
-continue to monitor weight and Cr for another day to make sure stable on PO regimen: high risk situation
-on d/c, would make metolazone 5mg M//, 30 min prior to torsemide
Permanent A fib:
-Stable. Continue metoprolol.
-warfarin for OAC given mechanical MVR- follow INR's- currently in range
Weakness:
-PT/OT consulted
Mechanical MVR:
-stable by recent echo
-INR goal 2.5-3.0 (narrower goal due to bleeding in past)
Elevated ammonia:
-s/p lactulose
-management per primary
CKD4:
-monitor with diuresis
Subjective: lying flat in bed without SOB, feeling fine
Data:
Echo 06/11/24: EF 50-55%. Enlarged right ventricle with moderately reduced systolic function. Severely dilated right atrium with RA pressure of 15 mmHg. Normal functioning mechanical mitral valve. Normal functioning TAVR valve. Torrential tricuspid
regurgitation. Unable to estimate PASP.
Physical Exam
Vital Signs/Labs
Vital Signs
Temp Pulse Resp BP Pulse Ox
97.3 F 80 18 109/57 98
09/18/24 07:15 09/18/24 07:15 09/18/24 07:15 09/18/24 07:15 09/18/24 07:15
09/17/24 09/18/24 09/19/24
06:59 06:59 06:59
Actual Weight 158 lb 8 oz 157 lb 7 oz
09/18/24 07:25
PT 24.5 Sec (11.4-14.6) H 09/17/24 14:35
INR 2.16 09/17/24 14:35
Magnesium 2.0 mg/dl (1.6-2.3) 09/14/24 11:44
09/11/24
04:32
Srx-I-Iimtctuoget Pept 5370
Physical Exam
Constitutional: No acute distress
EENT: Anicteric
Cardiovascular: Rhythm/rate is irregular
Respiratory: Respiratory effort normal and Lungs clear to auscul.
GI: Soft
Neuro/Psych: AO x 3
Data Reviewed
-
Date of Service: September 18, 2024
EKG: Tracing Personally Visualized and interpreted (af)
Echo: Report Reviewed by me
Labs: Labs Reviewed by me
[2024-09-18 08:21] LABS: INR 1.99; PT 23.1 Sec (11.4-14.6)
[2024-09-18 09:00] LABS: ALT (SGPT) 19 U/L (0-35); AST (SGOT) 65 U/L (14-36); Albumin 3.6 g/dl (3.5-5.0); Alkaline Phosphatase 235 U/L (38-126); Blood Urea Nitrogen 47 mg/dl (7-17); Calcium 9.6 mg/dl (8.4-10.2); Carbon Dioxide 18 mmol/L (22-30); Chloride 97 mmol/L (98-107); Estimated Creatinine Clearance 27 ml/min; Glucose 111 mg/dl (70-99); Potassium 4.8 mmol/L (3.5-5.1); Sodium 129 mmol/L (135-145); Total Bilirubin 2.2 mg/dl (0.2-1.3); Total Protein 6.2 g/dl (6.3-8.2)
[2024-09-18] MEDS: TOPROL XL 50 MG PO ×2 (09:45→20:06)
[2024-09-18] MEDS: PROTONIX 40 MG PO (09:45)
[2024-09-18] MEDS: FEOSOL 325 MG PO (09:45)
[2024-09-18] MEDS: DEMADEX 40 MG PO (09:46)
[2024-09-18] MEDS: FIBERCON 625 MG PO (09:46)
[2024-09-18] MEDS: KCL 20 MEQ PO ×2 (09:46→17:10)
[2024-09-18] MEDS: DUPHALAC/CHRONULAC 20 GRAMS PO ×3 (09:46→17:10)
[2024-09-18] MEDS: XIFAXAN 550 MG PO ×2 (09:49→20:06)
[2024-09-18] MEDS: FOLVITE 0.8 MG PO (09:49)
--- NOTE | 2024-09-18 11:02 | CM ---
Addendum entered by Lyn Darnell 09/18/24 15:24:
Patient has been denied at [facility], no answer from [facility], additional referrals sent to [facility] and [facility] at [place] and per admissions at [facility] they have denied patient. retail analytics manager explained to patient and spouse
that these facilities are part of the [facility] community and take from there own community first before accepting other patient's.
Original Note:
retail analytics manager reviewed patient's chart and met with patient and spoke with admissions at [facility] today and they have declined patient, case therapist spoke with patient and patient's spouse about alternative referrals and they are agreeable to
[facility], referral sent through [facility].
Plan; Skilled placement.
[2024-09-18 11:45] LABS: Glucose - Point of Care 249 mg/dl (70-99)
[2024-09-18] MEDS: ALDACTONE 12.5 MG PO (12:17)
--- NOTE | 2024-09-18 14:00 | PN.CDI ---
CDI
- -
CDI:
Physician Documentation Request
Admit Date: 09/11/24 13:17
Dear Doctor Sahara,
Please review the following and provide your response in the progress notes.
Clinical Indicators:
Laboratory Tests
09/11/24 09/13/24 09/18/24
04:32 07:12 07:25
WBC 5.2 4.5 L 4.5 L
RBC 3.71 L 3.86 L 3.61 L
Plt Count 61 L 65 L 68 L
Based on the above and your clinical assessment, please clarify in the appropriate diagnosis, if significant, that supports the above abnormalities and additional evaluation, monitoring and/or treatment rendered:
Pancytopenia
Abnormal lab values, clinically insignificant
Other(please specify)
Use of terms such as suspected, likely, concern for, or probable (associated with a specific diagnosis that is being evaluated, monitored, or treated as if it exists) are acceptable and can be coded in the inpatient setting, when documented at the
time of discharge.
Thank you,
Morenita Gonzales RN BSN CCDS
CDI Specialist
please contact via tiger text
Please use your independent medical judgment in providing your response.
[2024-09-18 15:05] VITALS: BP 112/52
[2024-09-18] MEDS: COUMADIN 2.5 MG PO (17:10)
--- NOTE | 2024-09-18 17:10 | W.PN.HOSP.TC ---
Today's Communication/Plan
-
adjust Coumadin
follow labs
Assessment / Plan
Assessment / Plan
#Hepatic encephalopathy
#Chronic elevation of alk.phos
#Chronic transaminitis
# Liver cirrhosis
# Thrombocytopenia
Patient afebrile.
Start patient on lactulose and monitor bowel movements. Titrate lactulose based on bowel movements. Goal 3-4 loose bowel movements a day. Hold next dose of lactulose if already with 3-4 loose BM a day.
Continue rifaximin
Monitor mentation-improved and at baseline now.
#Acute on chronic HFpEF
#Mechanical MV
# s/p TAVR
#SVT s/p ICD
Patient dry weight on 67 kg. Patient with weight gain since discharge from the hospital last month
off Lasix IV 80 mg twice daily. Requires invasive monitoring.
Cont with p.o. KCl
Monitor creatinine closely.
Strict I's and O's. Daily weights.
Per cardiology plan to transition off of IV diuresis to torsemide 40 mg daily home dose. Will restart Aldactone at 12.5 mg at noon as with soft blood pressure at times. Can increase to home dose 25mg if BP can tolerate.
Zaroxolyn 5 mg 3 times daily weekly on discharge
Cardiology evaluation
#Permanent A.fib
Continue with metoprolol
Continue with 2 mg of Coumadin daily
INR 2.5-->2.52-->2.16-->1.99 Check daily INR.
will increase Coumadin from 2.5 mg to 3 mg daily with declining INR
#Mild hyponatremia
monitor closely with diuresis
#Mild hyperkalemia
K now 4.8
#Mild exp wheezing
start bronchodilators
Resolved
# Ambulatory dysfunction likely secondary to congestive heart failure exacerbation and deconditioning
Physical and Occupational Therapy
May require placement.
Discussed with spouse about considering long-term care. Discussed with CM, in process of trying to arrange SNF
#chico on CKD stage 3b
follow Cr
Creatinine holding with aggressive diuresis.
#chronic dissection of the abdominal aorta
Outpatient VascSx
#LUE non-occlusive DVT
unclear if subacute versus chronic
Hematology evaluated last admission- advised to cont Warfarin
#Hx of LGIB
small polyps and hemorrhoids on colonoscopy in Apr 2024
#DJD
tylenol
PT/OT
DVT ppx on Coumadin
DNR/DNI
PT/OT with SNF. Case management for disposition.
Anticipated Discharge: 24 - 48 hours
Subjective/Interval History
-
Date of Service: September 18, 2024
Remains weak
Objective Data
-
Labs:
Laboratory Results
09/18/24
07:25
WBC 4.5 L
Hgb 11.5 L
Hct 33.4 L
Plt Count 68 L
PT 23.1 H
INR 1.99
Sodium 129 L
Potassium 4.8
Chloride 97 L
Carbon Dioxide 18 L
BUN 47 H
Creatinine 1.6 H
Glucose 111 H
Calcium 9.6
Total Bilirubin 2.2 H
AST 65 H
ALT 19
Alkaline Phosphatase 235 H
Vital Signs:
Vital Signs
Temp Pulse Resp BP Pulse Ox
97.5 F 86 18 112/52 95
09/18/24 15:05 09/18/24 15:05 09/18/24 15:05 09/18/24 15:05 09/18/24 15:05
I&O
09/17/24 09/18/24 09/19/24
06:59 06:59 06:59
Intake Total 1680 / 1680 720 / 720
Balance 1680 / 1680 720 / 720
Review of Systems
-
History Source: Family ( in room)
Constitutional: Denies Fever
EENT: Reports No Symptoms Reported
Respiratory: Reports No Symptoms; Denies Trouble Breathing
Cardiac: Reports No Symptoms; Denies Chest Pain
Musculoskeletal: Reports Muscle Weakness
Physical Exam
-
General: Well Developed, Well Nourished, No Apparent Distress and Appears Chronically Ill
HEENT: Normocephalic, Atraumatic and Moist Mucous Membranes
Respiratory: Clear to Auscultation; Negative Wheezes, Rales or Rhonchi
Cardiac: Regular Rhythm and S1/S2
GI: Soft, Nontender and Nondistended
Musculoskeletal: No Clubbing, No Cyanosis and No Edema
Psych: Calm
[2024-09-18] MEDS: COUMADIN 0.5 MG PO (18:43)
[2024-09-18] MEDS: DUPHALAC/CHRONULAC PO (21:26)
[2024-09-18] MEDS: ZYLOPRIM 100 MG PO (21:26)
[2024-09-18 23:57] VITALS: BP 124/79
[2024-09-19 04:50] LABS: % Basophils 2.1 % (0-2); % Eosinophils 4.7 % (0-6); % Immature Granulocytes 0.4 % (0-0.5); % Lymphocytes 19.8 % (20.5-51.1); % Monocytes 14.3 % (1.7-9.3); % Neutrophils 58.7 % (42.2-75.2); Absolute Basophils 0.1 10^3/uL (0-0.2); Absolute Eosinophils 0.2 10^3/uL (0-0.7); Absolute Lymphocytes 0.9 10^3/uL (1.2-3.4); Absolute Monocytes 0.7 10^3/uL (0.1-0.6); Absolute Neutrophils 2.8 10^3/uL (1.4-6.5); Hematocrit 33.2 % (37.0-47.0); Hemoglobin 11.1 g/dL (12.0-16.0); Mean Corp Hgb Conc. 33.4 g/dL (33.0-37.0); Mean Corpuscular Hgb 31.4 pg (27.0-31.0); Mean Corpuscular Volume 93.8 fL (81.0-99.0); Nucleated Red Blood Cells % 1.1 %; Platelet Count 67 10^3/uL (130-400); Red Blood Cell Count 3.54 10^6/uL (4.20-5.40); Red Cell Dist. Width 18.7 % (11.5-14.5); White Blood Cell Count 4.7 10^3/uL (4.8-10.8)
[2024-09-19 04:57] LABS: INR 2.16; PT 24.5 Sec (11.4-14.6)
[2024-09-19 05:00] LABS: ALT (SGPT) 19 U/L (0-35); AST (SGOT) 62 U/L (14-36); Albumin 3.5 g/dl (3.5-5.0); Alkaline Phosphatase 225 U/L (38-126); Blood Urea Nitrogen 49 mg/dl (7-17); Calcium 9.7 mg/dl (8.4-10.2); Carbon Dioxide 20 mmol/L (22-30); Chloride 97 mmol/L (98-107); Estimated Creatinine Clearance 26 ml/min; Glucose 154 mg/dl (70-99); Potassium 4.5 mmol/L (3.5-5.1); Sodium 130 mmol/L (135-145); Total Bilirubin 1.9 mg/dl (0.2-1.3); Total Protein 6.1 g/dl (6.3-8.2); eGFR 30.13
[2024-09-19 07:06] VITALS: BP 105/58
[2024-09-19] MEDS: FEOSOL 325 MG PO (08:02)
[2024-09-19] MEDS: DEMADEX 40 MG PO (08:02)
[2024-09-19] MEDS: PROTONIX 40 MG PO (08:02)
[2024-09-19] MEDS: FIBERCON 625 MG PO (08:02)
[2024-09-19] MEDS: KCL 20 MEQ PO ×2 (08:03→15:14)
[2024-09-19] MEDS: DUPHALAC/CHRONULAC 20 GRAMS PO ×4 (08:03→22:12)
[2024-09-19] MEDS: FOLVITE 0.8 MG PO (08:03)
[2024-09-19] MEDS: TOPROL XL 50 MG PO ×2 (08:03→20:20)
[2024-09-19] MEDS: XIFAXAN 550 MG PO ×2 (08:03→20:20)
[2024-09-19 11:32] VITALS: O2SAT 95
[2024-09-19] MEDS: ALDACTONE 12.5 MG PO (11:39)
--- NOTE | 2024-09-19 13:47 | CM ---
Addendum entered by Lyn Darnell 09/19/24 14:02:
Patient has been accepted at [facility] for Sunday09/21/24 skilled placement, no Auth required.
[facility]
Report [phone]

Original Note:
Chart reviewed and patient and there are no beds at [facility], and [facility] [place], referral sent to [facility].
Plan; Await determination from [facility] skilled.
[2024-09-19 15:47] VITALS: BP 110/60
--- NOTE | 2024-09-19 17:20 | W.PN.HOSP.TC ---
Today's Communication/Plan
-
follow labs
Assessment / Plan
Assessment / Plan
#Hepatic encephalopathy
better, believes at baseline
#Chronic elevation of alk.phos
#Chronic transaminitis
# Liver cirrhosis
# Thrombocytopenia
Patient afebrile.
Start patient on lactulose and monitor bowel movements. Titrate lactulose based on bowel movements. Goal 3-4 loose bowel movements a day. Hold next dose of lactulose if already with 3-4 loose BM a day.
Continue rifaximin
Monitor mentation-improved and at baseline now.
#Acute on chronic HFpEF
#Mechanical MV
# s/p TAVR
#SVT s/p ICD
Patient dry weight on 67 kg. Patient with weight gain since discharge from the hospital last month
off Lasix IV 80 mg twice daily. Requires invasive monitoring.
wt 77.3-->72.1-->71.4
Cont with p.o. KCl
Monitor creatinine closely.
Strict I's and O's. Daily weights.
Per cardiology plan to transition off of IV diuresis to torsemide 40 mg daily home dose. Will restart Aldactone at 12.5 mg at noon as with soft blood pressure at times. Can increase to home dose 25mg if BP can tolerate.
Zaroxolyn 5 mg 3 times daily weekly on discharge
Cardiology evaluation
#Permanent A.fib
Continue with metoprolol
Continue with 2 mg of Coumadin daily
INR 2.5-->2.52-->2.16-->1.99-->2.16 Check daily INR.
will increase Coumadin from 2.5 mg to 3 mg daily with declining INR
#Mild hyponatremia
monitor closely with diuresis
Pancytopenia
#Mild hyperkalemia
K now 4.8
#Mild exp wheezing
start bronchodilators
Resolved
# Ambulatory dysfunction likely secondary to congestive heart failure exacerbation and deconditioning
Physical and Occupational Therapy
May require placement.
Discussed with spouse about considering long-term care. Discussed with CM, in process of trying to arrange SNF
#chico on CKD stage 3b
follow Cr
Creatinine holding with aggressive diuresis.
#chronic dissection of the abdominal aorta
Outpatient VascSx
#LUE non-occlusive DVT
unclear if subacute versus chronic
Hematology evaluated last admission- advised to cont Warfarin
#Hx of LGIB
small polyps and hemorrhoids on colonoscopy in Apr 2024
#DJD
tylenol
PT/OT
DVT ppx on Coumadin
DNR/DNI
PT/OT with SNF. Case management for disposition.
As per Lyn, potential dc on Thursday 09/21
Anticipated Discharge: 24 - 48 hours
Subjective/Interval History
-
Date of Service: September 19, 2024
More alert, voice remains soft, but answering questions well
Objective Data
-
Vital Signs:
Vital Signs
Temp Pulse Resp BP Pulse Ox
97.4 F 92 18 110/60 98
09/19/24 15:47 09/19/24 15:47 09/19/24 15:47 09/19/24 15:47 09/19/24 15:47
I&O
09/18/24 09/19/24 09/20/24
06:59 06:59 06:59
Intake Total 720 / 720 600 / 600
Balance 720 / 720 600 / 600
Review of Systems
-
History Source: Family ( in room)
Constitutional: Denies Fever
EENT: Reports No Symptoms Reported
Respiratory: Reports No Symptoms; Denies Trouble Breathing
Cardiac: Reports No Symptoms; Denies Chest Pain
Musculoskeletal: Reports Muscle Weakness
Physical Exam
-
General: Well Developed, Well Nourished, No Apparent Distress and Appears Chronically Ill
HEENT: Normocephalic, Atraumatic and Moist Mucous Membranes
Respiratory: Clear to Auscultation; Negative Wheezes, Rales or Rhonchi
Cardiac: Regular Rhythm and S1/S2
GI: Soft, Nontender and Nondistended
Musculoskeletal: No Clubbing, No Cyanosis and No Edema
Psych: Calm
[2024-09-19] MEDS: COUMADIN 3 MG PO (17:57)
[2024-09-19] MEDS: ZYLOPRIM 100 MG PO (22:11)
[2024-09-19 23:18] VITALS: BP 118/54
[2024-09-20 05:32] VITALS: BMI 27.0
[2024-09-20 07:45] VITALS: BP 101/53
[2024-09-20] MEDS: TOPROL XL PO (08:00)
[2024-09-20] MEDS: XIFAXAN 550 MG PO ×2 (08:07→19:57)
[2024-09-20] MEDS: FOLVITE 0.8 MG PO (08:07)
[2024-09-20] MEDS: FIBERCON 625 MG PO (08:07)
[2024-09-20] MEDS: FEOSOL 325 MG PO (08:07)
[2024-09-20] MEDS: DEMADEX 40 MG PO (08:07)
[2024-09-20] MEDS: PROTONIX 40 MG PO (08:08)
[2024-09-20] MEDS: DUPHALAC/CHRONULAC 20 GRAMS PO ×4 (08:08→21:36)
[2024-09-20 08:15] LABS: % Basophils 1.5 % (0-2); % Eosinophils 3.7 % (0-6); % Immature Granulocytes 0.2 % (0-0.5); % Lymphocytes 21.3 % (20.5-51.1); % Monocytes 12.1 % (1.7-9.3); % Neutrophils 61.2 % (42.2-75.2); Absolute Basophils 0.1 10^3/uL (0-0.2); Absolute Eosinophils 0.2 10^3/uL (0-0.7); Absolute Monocytes 0.6 10^3/uL (0.1-0.6); Absolute Neutrophils 2.8 10^3/uL (1.4-6.5); Hematocrit 34.8 % (37.0-47.0); Hemoglobin 11.6 g/dL (12.0-16.0); Mean Corp Hgb Conc. 33.3 g/dL (33.0-37.0); Mean Corpuscular Hgb 31.3 pg (27.0-31.0); Mean Corpuscular Volume 93.8 fL (81.0-99.0); Nucleated Red Blood Cells % 1.1 %; Platelet Count 70 10^3/uL (130-400); Red Blood Cell Count 3.71 10^6/uL (4.20-5.40); Red Cell Dist. Width 19.2 % (11.5-14.5); White Blood Cell Count 4.6 10^3/uL (4.8-10.8)
[2024-09-20 08:22] LABS: INR 2.56; PT 27.5 Sec (11.4-14.6)
[2024-09-20 08:24] LABS: Ammonia 52 umol/L (9-30)
[2024-09-20 08:58] LABS: ALT (SGPT) 21 U/L (0-35); AST (SGOT) 74 U/L (14-36); Albumin 3.5 g/dl (3.5-5.0); Alkaline Phosphatase 245 U/L (38-126); Blood Urea Nitrogen 52 mg/dl (7-17); Calcium 9.7 mg/dl (8.4-10.2); Carbon Dioxide 20 mmol/L (22-30); Chloride 100 mmol/L (98-107); Estimated Creatinine Clearance 24 ml/min; Glucose 125 mg/dl (70-99); Potassium 5.2 mmol/L (3.5-5.1); Sodium 131 mmol/L (135-145); Total Bilirubin 2.2 mg/dl (0.2-1.3); Total Protein 6.2 g/dl (6.3-8.2); eGFR 28.13
[2024-09-20] MEDS: KCL PO (09:11)
[2024-09-20 11:06] VITALS: BP 104/67
[2024-09-20] MEDS: ALDACTONE 12.5 MG PO (11:17)
--- NOTE | 2024-09-20 15:16 | W.PN.HOSP.TC ---
Today's Communication/Plan
-
decrease Coumadin
decrease KCl supplement
recheck INR, BMP in AM
potential dc to SNF tomorrow
Assessment / Plan
Assessment / Plan
#Hepatic encephalopathy
better, believes at baseline
#Chronic elevation of alk.phos
#Chronic transaminitis
# Liver cirrhosis
# Thrombocytopenia
Patient afebrile.
Start patient on lactulose and monitor bowel movements. Titrate lactulose based on bowel movements. Goal 3-4 loose bowel movements a day. Hold next dose of lactulose if already with 3-4 loose BM a day.
Continue rifaximin
Monitor mentation-improved and at baseline now.
#Acute on chronic HFpEF
#Mechanical MV
# s/p TAVR
#SVT s/p ICD
Patient dry weight on 67 kg. Patient with weight gain since discharge from the hospital last month
off Lasix IV 80 mg twice daily. Requires invasive monitoring.
wt 77.3-->72.1-->71.4-->71.27
Cont with p.o. KCl
Monitor creatinine closely.
Strict I's and O's. Daily weights.
Per cardiology plan to transition off of IV diuresis to torsemide 40 mg daily home dose. Will restart Aldactone at 12.5 mg at noon as with soft blood pressure at times. Can increase to home dose 25mg if BP can tolerate.
Zaroxolyn 5 mg 3 times daily weekly on discharge
Cardiology evaluation appreciated
#Permanent A.fib
Continue with metoprolol
Resume 2.5 mg of Coumadin daily
INR 2.5-->2.52-->2.16-->1.99-->2.16-->2.56 Check daily INR.
with increase of INR after Coumadin dose increased from 2.5 mg to 3 mg daily will decrease dose slightly back to the 2.5mg daily
#Mild hyponatremia
monitor closely with diuresis
Pancytopenia
#Mild hyperkalemia
K now 5.2
will decrease K supplement to daily, especially in pt on low dose Aldactone
#Mild exp wheezing
start bronchodilators
Resolved
# Ambulatory dysfunction likely secondary to congestive heart failure exacerbation and deconditioning
Physical and Occupational Therapy
May require placement.
Discussed with spouse about considering long-term care. Discussed with CM, in process of trying to arrange SNF
#chico on CKD stage 3b
follow Cr
Creatinine holding with aggressive diuresis.
#chronic dissection of the abdominal aorta
Outpatient VascSx
#LUE non-occlusive DVT
unclear if subacute versus chronic
Hematology evaluated last admission- advised to cont Warfarin
#Hx of LGIB
small polyps and hemorrhoids on colonoscopy in Apr 2024
#DJD
tylenol
PT/OT
DVT ppx on Coumadin
DNR/DNI
PT/OT with SNF. Case management for disposition.
As per Lyn, rei dc on Thursday 09/21
Anticipated Discharge: 24 - 48 hours
Subjective/Interval History
-
Date of Service: September 20, 2024
Answering basic questions, though softly spoken, answers appear to be correct
Objective Data
-
Labs:
Laboratory Results
09/20/24
08:01
WBC 4.6 L
Hgb 11.6 L
Hct 34.8 L
Plt Count 70 L
PT 27.5 H
INR 2.56
Sodium 131 L
Potassium 5.2 H
Chloride 100
Carbon Dioxide 20 L
BUN 52 H
Creatinine 1.8 H
Glucose 125 H
Calcium 9.7
Total Bilirubin 2.2 H
AST 74 H
ALT 21
Alkaline Phosphatase 245 H
Vital Signs:
Vital Signs
Temp Pulse Resp BP Pulse Ox
97.3 F 68 18 104/67 97
09/20/24 07:45 09/20/24 11:06 09/20/24 11:06 09/20/24 11:17 09/20/24 07:45
I&O
09/19/24 09/20/24 09/21/24
06:59 06:59 07:59
Intake Total 600 / 600 1440 / 1440
Balance 600 / 600 1440 / 1440
Review of Systems
-
History Source: Coordinated Provider
Constitutional: Denies Fever
EENT: Reports No Symptoms Reported
Respiratory: Reports No Symptoms; Denies Trouble Breathing
Cardiac: Reports No Symptoms; Denies Chest Pain
Musculoskeletal: Reports Muscle Weakness
Physical Exam
-
General: Well Developed, Well Nourished, No Apparent Distress and Appears Chronically Ill
HEENT: Normocephalic, Atraumatic and Moist Mucous Membranes
Respiratory: Clear to Auscultation; Negative Wheezes, Rales or Rhonchi
Cardiac: Regular Rhythm and S1/S2
GI: Soft, Nontender and Nondistended
Musculoskeletal: No Clubbing, No Cyanosis and No Edema
Psych: Calm
[2024-09-20 15:52] VITALS: BP 100/70
[2024-09-20] MEDS: COUMADIN 2.5 MG PO (17:19)
[2024-09-20 19:23] VITALS: BP 131/75
[2024-09-20] MEDS: TOPROL XL 50 MG PO (19:56)
[2024-09-20] MEDS: ZYLOPRIM 100 MG PO (21:36)
[2024-09-20 23:28] VITALS: BP 111/64
[2024-09-21 05:34] VITALS: BMI 26.8
[2024-09-21 07:00] VITALS: BP 101/52
[2024-09-21 07:07] LABS: INR 2.71; PT 28.7 Sec (11.4-14.6)
[2024-09-21 07:24] LABS: Blood Urea Nitrogen 52 mg/dl (7-17); Calcium 9.4 mg/dl (8.4-10.2); Carbon Dioxide 19 mmol/L (22-30); Chloride 95 mmol/L (98-107); Estimated Creatinine Clearance 22 ml/min; Glucose 137 mg/dl (70-99); Potassium 4.4 mmol/L (3.5-5.1); Sodium 129 mmol/L (135-145); eGFR 28.13
[2024-09-21] MEDS: FIBERCON 625 MG PO (08:52)
[2024-09-21] MEDS: XIFAXAN 550 MG PO (08:52)
[2024-09-21] MEDS: PROTONIX 40 MG PO (08:52)
[2024-09-21] MEDS: TOPROL XL 50 MG PO (08:53)
[2024-09-21] MEDS: FOLVITE 0.8 MG PO (08:54)
[2024-09-21] MEDS: FEOSOL 325 MG PO (08:54)
[2024-09-21] MEDS: DUPHALAC/CHRONULAC 20 GRAMS PO ×3 (08:56→16:41)
[2024-09-21] MEDS: KCL 20 MEQ PO (08:56)
[2024-09-21] MEDS: DEMADEX 40 MG PO (08:56)
[2024-09-21] MEDS: ALDACTONE 12.5 MG PO (12:12)
--- NOTE | 2024-09-21 14:02 | W.PN.HOSP.TC ---
Today's Communication/Plan
-
dc to [facility]
Assessment / Plan
Assessment / Plan
#Hepatic encephalopathy
better, believes at baseline
#Chronic elevation of alk.phos
#Chronic transaminitis
# Liver cirrhosis
chronic Lactulose, BM x 4 yesterday
# Thrombocytopenia
Patient afebrile.
Start patient on lactulose and monitor bowel movements. Titrate lactulose based on bowel movements. Goal 3-4 loose bowel movements a day. Hold next dose of lactulose if already with 3-4 loose BM a day.
Continue rifaximin
Monitor mentation-improved and at baseline now.
#Acute on chronic HFpEF
#Mechanical MV
# s/p TAVR
#SVT s/p ICD
Patient dry weight on 67 kg. Patient with weight gain since discharge from the hospital last month
off Lasix IV 80 mg twice daily. Requires invasive monitoring.
wt 77.3-->72.1-->71.4-->71.27
Cont with p.o. KCl
Monitor creatinine closely.
Strict I's and O's. Daily weights.
Per cardiology plan to transition off of IV diuresis to torsemide 40 mg daily home dose. Will restart Aldactone at 12.5 mg at noon as with soft blood pressure at times. Can increase to home dose 25mg if BP can tolerate.
Zaroxolyn 5 mg 3 times daily weekly on discharge
Cardiology evaluation appreciated
#Permanent A.fib
Continue with metoprolol
Resume 2.5 mg of Coumadin daily
INR 2.5-->2.52-->2.16-->1.99-->2.16-->2.56 Check daily INR.
with increase of INR after Coumadin dose increased from 2.5 mg to 3 mg daily will decrease dose slightly back to the 2.5mg daily
#Mild hyponatremia
monitor closely with diuresis
Pancytopenia
#Mild hyperkalemia
K now 5.2
will decrease K supplement to daily, especially in pt on low dose Aldactone
#Mild exp wheezing
start bronchodilators
Resolved
# Ambulatory dysfunction likely secondary to congestive heart failure exacerbation and deconditioning
Physical and Occupational Therapy
May require placement.
Discussed with spouse about considering long-term care. Discussed with CM, in process of trying to arrange SNF
#chico on CKD stage 3b
follow Cr
Creatinine holding with aggressive diuresis.
#chronic dissection of the abdominal aorta
Outpatient VascSx
#LUE non-occlusive DVT
unclear if subacute versus chronic
Hematology evaluated last admission- advised to cont Warfarin
#Hx of LGIB
small polyps and hemorrhoids on colonoscopy in Apr 2024
#DJD
tylenol
PT/OT
DVT ppx on Coumadin
DNR/DNI
PT/OT with SNF. Case management for disposition.
dc to [facility] today at 5 PM
reviewed with at bedside
More than 30 minutes spent in discharge including
Final examination of the patient
Summarizing hospital stay
Instructions for continuing care to all relevant caregivers
Preparation of discharge records, prescriptions, and referral forms
Total time spent (in minutes): 50
Anticipated Discharge: Today
Subjective/Interval History
-
Date of Service: September 21, 2024
Awake, alert
Objective Data
-
Labs:
Laboratory Results
09/21/24
06:13
PT 28.7 H
INR 2.71
Sodium 129 L
Potassium 4.4
Chloride 95 L
Carbon Dioxide 19 L
BUN 52 H
Creatinine 1.8 H
Glucose 137 H
Calcium 9.4
Vital Signs:
Vital Signs
Temp Pulse Resp BP Pulse Ox
97.5 F 81 18 101/52 97
09/21/24 07:00 09/21/24 07:00 09/21/24 07:00 09/21/24 07:00 09/21/24 07:00
I&O
09/20/24 09/21/24 09/22/24
05:59 06:59 06:59
Intake Total
Balance
Review of Systems
-
History Source: Coordinated Provider
Constitutional: Denies Fever
EENT: Reports No Symptoms Reported
Respiratory: Reports No Symptoms; Denies Trouble Breathing
Cardiac: Reports No Symptoms; Denies Chest Pain
Musculoskeletal: Reports Muscle Weakness
Physical Exam
-
General: Well Developed, Well Nourished, No Apparent Distress and Appears Chronically Ill
HEENT: Normocephalic, Atraumatic and Moist Mucous Membranes
Respiratory: Clear to Auscultation; Negative Wheezes, Rales or Rhonchi
Cardiac: Regular Rhythm and S1/S2
GI: Soft, Nontender and Nondistended
Musculoskeletal: No Clubbing, No Cyanosis and No Edema (chronic interstitial changes)
Psych: Calm
--- NOTE | 2024-09-21 14:15 | CM ---
CM reviewed chart, spoke with [facility], confirmed ability to accept patient for rehab today. Patient seen bedside, agreeable to discharge to SNF. IMM reviewed, patient verbally agreeable, provided copy, placed in chart. Patients seen in
hallway, aware of discharge plan. Patient scheduled for 5:00 p.m. ambulance transport. CM will continue to follow for all discharge planning needs.
Plan: [facility], 5:00 p.m. ambulance transport
[facility]
Report [phone]
[2024-09-21 15:00] VITALS: BP 105/73
--- NOTE | 2024-09-21 15:25 | W.DS.TRANS ---
DC Summary - Quality Control Head
-
Discharge Instructions:
Discharge Diagnosis/Procedures HepatoRenal Syndrome
Diet No added salt
Activity With assistance
Driving Restrictions No driving
Blood Work INR weekly. Maintain INR 2.5-3.0
CBC, CMP weekly
Instructions: *CBC Heart Failure Instructions
Stand-Alone Forms:
Changes to Home Medications: Yes
Discharge Medications:
DC Medications w/original date entered in [facility]
docusate sodium 100 mg capsule (Colace) 100 mg PO DAILY Constipation 05/01/24
ferrous sulfate 325 mg (65 mg iron) tablet 325 mg PO DAILY Supplement 05/01/24
omega 1-ebp-vzv-fish oil 1,000 mg (120 mg-180 mg) capsule (Fish Oil) 1 cap PO DAILY Supplement 05/01/24
nitroglycerin 0.4 mg sublingual tablet 0.4 mg sublingual [id number] PRN chest pain 30 days #20 tabs 05/12/24
repaglinide 0.5 mg tablet 0.5 mg PO AC Diabetes 30 days #30 tabs 05/12/24
therapeutic multivitamin 1 tab PO DAILY Supplement 30 days #30 tabs 05/12/24
allopurinol 100 mg tablet 100 mg PO HS Gout 06/10/24
calcium polycarbophil 625 mg tablet (Fiber-Lax) 625 mg PO DAILY Constipation 06/10/24
spironolactone 25 mg tablet 25 mg PO DAILY Fluid retention/Swelling #0 tabs 06/21/24
folic acid 0.8 mg capsule 0.8 mg PO DAILY Supplement 07/30/24
torsemide 20 mg tablet 40 mg PO DAILY Fluid Retention/Swelling 07/30/24
metoprolol succinate 50 mg tablet,extended release 24 hr 50 mg PO BID #60 tabs 08/10/24
rifaximin 550 mg tablet (Xifaxan) 550 mg PO BID #60 tabs 08/10/24
lactulose 20 gram oral packet 20 g PO QID Constipation 09/11/24
levalbuterol tartrate 45 mcg/actuation aerosol inhaler (Xopenex HFA) 2 inh inhalation R Q6HPRN PRN sob 09/11/24
pantoprazole 40 mg tablet,delayed release 40 mg PO DAILY Gastrointestinal issue 09/11/24
sennosides 8.6 mg tablet (senna) 8.6 mg PO BIDPRN PRN constipation 09/11/24
sodium bicarbonate 650 mg tablet 1,300 mg PO BID Hepatic encephalopathy 09/12/24
metolazone 5 mg tablet 5 mg PO .mwf #30 tabs 09/21/24
potassium chloride 20 mEq tablet,extended release(part/cryst) 20 meq PO DAILY #0 tabs 09/21/24
warfarin 2.5 mg tablet (Jantoven) 2.5 mg PO QPM #0 tabs 09/21/24
Home Medication Changes
Potassium decreased to one per day for now
Pending Results: No
[2024-09-21] MEDS: COUMADIN 2.5 MG PO (16:41)
--- NOTE | 2024-09-22 12:12 | W.HF.CON ---
Heart Failure
- LV Function
Left ventricular function study result: LV Ejection fraction >/= 50% (ECHO 06/08/24)
Ejection Fraction Percentage: 50-55
- ARNI
Patient already on ARNI: No
Heart Failure ARNI Not Indicated: LV Ejection Fraction >/= 40%
- ACEI/ARB
Patient already on ACEI/ARB: No
Heart Failure ACEI/ARB Not Indicated: LV Ejection Fraction > 40%
- Beta Dannielle
Patient already on Evidence Based Beta Dannielle: Yes
- Mineralocorticord Receptor Antagonist
Patient already on MRA: Yes
- SGLT-2 Inhibitor
Patient already on SGLT-2 Inhibitor: No
Heart Failure SGLT-2 Inhibitor Not Indicated: LV Ejection Fraction >40%
- Afib Anticoagulation
Patient already on Anticoagulation for Afib: Yes
- NYHA CHF Classification
NYHA CHF Classification Level: Class III - Symptoms w/ min exertion, interferes w/ nml daily activity
- ACC/AHA Stage
ACC/AHA Stage: Stage C: Symptomatic Heart Failure
== END 2024-09-21 17:36 | DRG 291 ==
LOC: 4 WEST ACU 13:17
PROVIDERS: ADMITTING PHYSICIAN Hospitalist; ATTENDING PHYSICIAN Internal Medicine; CONSULT PHYSICIAN Internal Medicine; EMERGENCY PHYSICIAN Emergency Medicine
DX: I13.0 Hypertensive heart and chronic kidney disease with heart failure and stage 1 through stage 4 chronic kidney disease, or unspecified chronic kidney disease (principal); I49.01 Ventricular fibrillation; I50.33 Acute on chronic diastolic (congestive) heart failure; I48.21 Permanent atrial fibrillation; E87.1 Hypo-osmolality and hyponatremia; D61.818 Other pancytopenia; N17.9 Acute kidney failure, unspecified; I47.10 Supraventricular tachycardia, unspecified; N18.32 Chronic kidney disease, stage 3b; E11.22 Type 2 diabetes mellitus with diabetic chronic kidney disease; K76.82 Hepatic encephalopathy; Z79.01 Long term (current) use of anticoagulants; Z95.2 Presence of prosthetic heart valve; K74.60 Unspecified cirrhosis of liver; D69.6 Thrombocytopenia, unspecified; E87.5 Hyperkalemia; M19.90 Unspecified osteoarthritis, unspecified site; Z66 Do not resuscitate; Z86.0100 Personal history of colon polyps, unspecified; Z95.810 Presence of automatic (implantable) cardiac defibrillator; R79.1 Abnormal coagulation profile; Z95.1 Presence of aortocoronary bypass graft; I25.10 Atherosclerotic heart disease of native coronary artery without angina pectoris; E78.00 Pure hypercholesterolemia, unspecified; K59.00 Constipation, unspecified; M10.9 Gout, unspecified; Z79.899 Other long term (current) drug therapy; I87.2 Venous insufficiency (chronic) (peripheral)
CPT/HCPCS: 70450; 71046; 80048; 80053; 82140; 82962; 83735; 83880; 84484; 85025; 85610; 93005; 94640; 97163; 97167; 97530; 97535; 99285

== ENCOUNTER → 2024-09-22 09:20 | Outpatient (REF) | payer MEDICARE, OTHER, SELFPAY ==
[2024-09-22 11:19] LABS: % Basophils 2.2 % (0-2); % Immature Granulocytes 0.6 % (0-0.5); % Lymphocytes 19.2 % (20.5-51.1); % Monocytes 13.6 % (1.7-9.3); % Neutrophils 59.4 % (42.2-75.2); Absolute Basophils 0.1 10^3/uL (0-0.2); Absolute Eosinophils 0.2 10^3/uL (0-0.7); Absolute Lymphocytes 0.7 10^3/uL (1.2-3.4); Absolute Monocytes 0.5 10^3/uL (0.1-0.6); Absolute Neutrophils 2.1 10^3/uL (1.4-6.5); Hematocrit 35.2 % (37.0-47.0); Hemoglobin 11.6 g/dL (12.0-16.0); INR 3.12; Mean Corpuscular Hgb 31.4 pg (27.0-31.0); Mean Corpuscular Volume 95.4 fL (81.0-99.0); Nucleated Red Blood Cells % 0.8 %; Platelet Count 68 10^3/uL (130-400); Red Blood Cell Count 3.69 10^6/uL (4.20-5.40); Red Cell Dist. Width 19.1 % (11.5-14.5); White Blood Cell Count 3.6 10^3/uL (4.8-10.8)
[2024-09-22 12:23] LABS: ALT (SGPT) 21 U/L (0-35); AST (SGOT) 72 U/L (14-36); Albumin 3.7 g/dl (3.5-5.0); Alkaline Phosphatase 248 U/L (38-126); Blood Urea Nitrogen 55 mg/dl (7-17); Calcium 9.3 mg/dl (8.4-10.2); Carbon Dioxide 18 mmol/L (22-30); Chloride 96 mmol/L (98-107); Glucose 107 mg/dl (70-99); Potassium 3.9 mmol/L (3.5-5.1); Sodium 130 mmol/L (135-145); Total Bilirubin 2.1 mg/dl (0.2-1.3); Total Protein 6.2 g/dl (6.3-8.2); eGFR 30.13
== END ==
LOC: OLABP 09:20
PROVIDERS: ATTENDING PHYSICIAN Family Medicine
DX: I10 Essential (primary) hypertension (principal); N39.0 Urinary tract infection, site not specified; N17.9 Acute kidney failure, unspecified; E86.0 Dehydration
CPT/HCPCS: 36415; 80053; 85025; 85610

== ENCOUNTER → 2024-09-23 10:30 | Outpatient (REF) | payer MEDICARE, OTHER, SELFPAY ==
[2024-09-23 11:01] LABS: INR 3.11; PT 31.9 Sec (11.4-14.6)
== END ==
LOC: OLABP 10:30
PROVIDERS: ATTENDING PHYSICIAN Family Medicine
DX: I10 Essential (primary) hypertension (principal); N39.0 Urinary tract infection, site not specified; N17.9 Acute kidney failure, unspecified; E86.0 Dehydration
CPT/HCPCS: 36415; 85610

== ENCOUNTER → 2024-09-24 10:12 | Outpatient (REF) | payer MEDICARE, OTHER, SELFPAY ==
[2024-09-24 12:41] LABS: Hematocrit 33.5 % (37.0-47.0); Hemoglobin 11.2 g/dL (12.0-16.0); Mean Corp Hgb Conc. 33.4 g/dL (33.0-37.0); Mean Corpuscular Hgb 31.5 pg (27.0-31.0); Mean Corpuscular Volume 94.1 fL (81.0-99.0); Platelet Count 73 10^3/uL (130-400); Red Blood Cell Count 3.56 10^6/uL (4.20-5.40); Red Cell Dist. Width 19.1 % (11.5-14.5); White Blood Cell Count 4.1 10^3/uL (4.8-10.8)
[2024-09-24 12:42] LABS: Blood Urea Nitrogen 57 mg/dl (7-17); Calcium 8.8 mg/dl (8.4-10.2); Carbon Dioxide 19 mmol/L (22-30); Chloride 96 mmol/L (98-107); Glucose 76 mg/dl (70-99); Potassium 4.1 mmol/L (3.5-5.1); Sodium 129 mmol/L (135-145); eGFR 30.13
== END ==
LOC: OLABP 10:12
PROVIDERS: ATTENDING PHYSICIAN Family Medicine
DX: E86.0 Dehydration (principal); I10 Essential (primary) hypertension; N39.0 Urinary tract infection, site not specified; N17.9 Acute kidney failure, unspecified
CPT/HCPCS: 36415; 80048; 85027

== ENCOUNTER → 2024-09-26 09:21 | Outpatient (REF) | payer MEDICARE, OTHER, SELFPAY | LOC: OLABP 09:21 | PROVIDERS: ATTENDING PHYSICIAN Family Medicine | DX: I10 Essential (primary) hypertension (principal); N39.0 Urinary tract infection, site not specified; N17.9 Acute kidney failure, unspecified; E86.0 Dehydration | CPT/HCPCS: 36415; 85610 ==

== ENCOUNTER → 2024-09-29 09:40 | Outpatient (REF) | payer MEDICARE, OTHER, SELFPAY ==
[2024-09-29 12:51] LABS: % Basophils 2.4 % (0-2); % Eosinophils 3.3 % (0-6); % Immature Granulocytes 0.2 % (0-0.5); % Lymphocytes 22.2 % (20.5-51.1); % Neutrophils 54.9 % (42.2-75.2); Absolute Basophils 0.1 10^3/uL (0-0.2); Absolute Eosinophils 0.1 10^3/uL (0-0.7); Absolute Lymphocytes 0.9 10^3/uL (1.2-3.4); Absolute Monocytes 0.7 10^3/uL (0.1-0.6); Absolute Neutrophils 2.3 10^3/uL (1.4-6.5); Hematocrit 35.1 % (37.0-47.0); Hemoglobin 11.5 g/dL (12.0-16.0); Mean Corp Hgb Conc. 32.8 g/dL (33.0-37.0); Mean Corpuscular Hgb 31.6 pg (27.0-31.0); Mean Corpuscular Volume 96.4 fL (81.0-99.0); Nucleated Red Blood Cells % 0.5 %; Platelet Count 103 10^3/uL (130-400); Red Blood Cell Count 3.64 10^6/uL (4.20-5.40); Red Cell Dist. Width 18.6 % (11.5-14.5); White Blood Cell Count 4.2 10^3/uL (4.8-10.8)
[2024-09-29 12:53] LABS: INR 2.94; PT 30.6 Sec (11.4-14.6)
[2024-09-29 13:16] LABS: ALT (SGPT) 20 U/L (0-35); AST (SGOT) 69 U/L (14-36); Albumin 3.4 g/dl (3.5-5.0); Alkaline Phosphatase 236 U/L (38-126); Blood Urea Nitrogen 55 mg/dl (7-17); Calcium 9.1 mg/dl (8.4-10.2); Carbon Dioxide 23 mmol/L (22-30); Chloride 99 mmol/L (98-107); Glucose 92 mg/dl (70-99); Potassium 4.1 mmol/L (3.5-5.1); Sodium 132 mmol/L (135-145); Total Bilirubin 2.2 mg/dl (0.2-1.3)
== END ==
LOC: OLABP 09:40
PROVIDERS: ATTENDING PHYSICIAN Family Medicine
DX: I10 Essential (primary) hypertension (principal); N39.0 Urinary tract infection, site not specified; N17.9 Acute kidney failure, unspecified; E86.0 Dehydration; I35.0 Nonrheumatic aortic (valve) stenosis
CPT/HCPCS: 36415; 80053; 85025; 85610

== ENCOUNTER → 2024-10-03 10:40 | Outpatient (REF) | payer OTHER, MEDICARE, SELFPAY ==
[2024-10-03 12:38] LABS: INR 3.21; PT 32.7 Sec (11.4-14.6)
== END ==
LOC: OLABP 10:40
PROVIDERS: ATTENDING PHYSICIAN Family Medicine
DX: I10 Essential (primary) hypertension (principal); N39.0 Urinary tract infection, site not specified; N17.9 Acute kidney failure, unspecified; E86.0 Dehydration
CPT/HCPCS: 36415; 85610

== ENCOUNTER → 2024-10-06 10:30 | Outpatient (REF) | payer OTHER, MEDICARE, SELFPAY ==
[2024-10-06 10:47] LABS: PT 34.9 Sec (11.4-14.6)
[2024-10-06 10:54] LABS: % Basophils 1.5 % (0-2); % Eosinophils 4.9 % (0-6); % Immature Granulocytes 0.5 % (0-0.5); % Lymphocytes 18.7 % (20.5-51.1); % Monocytes 12.3 % (1.7-9.3); % Neutrophils 62.1 % (42.2-75.2); Absolute Basophils 0.1 10^3/uL (0-0.2); Absolute Eosinophils 0.2 10^3/uL (0-0.7); Absolute Lymphocytes 0.7 10^3/uL (1.2-3.4); Absolute Monocytes 0.5 10^3/uL (0.1-0.6); Absolute Neutrophils 2.4 10^3/uL (1.4-6.5); Hemoglobin 10.7 g/dL (12.0-16.0); Mean Corp Hgb Conc. 32.4 g/dL (33.0-37.0); Mean Corpuscular Hgb 31.4 pg (27.0-31.0); Mean Corpuscular Volume 96.8 fL (81.0-99.0); Nucleated Red Blood Cells % 0 %; Platelet Count 66 10^3/uL (130-400); Red Blood Cell Count 3.41 10^6/uL (4.20-5.40); Red Cell Dist. Width 18.2 % (11.5-14.5); White Blood Cell Count 3.9 10^3/uL (4.8-10.8)
[2024-10-06 13:13] LABS: ALT (SGPT) 21 U/L (0-35); AST (SGOT) 67 U/L (14-36); Albumin 3.4 g/dl (3.5-5.0); Alkaline Phosphatase 279 U/L (38-126); Blood Urea Nitrogen 48 mg/dl (7-17); Calcium 9.2 mg/dl (8.4-10.2); Carbon Dioxide 20 mmol/L (22-30); Chloride 103 mmol/L (98-107); Glucose 87 mg/dl (70-99); Potassium 4.6 mmol/L (3.5-5.1); Sodium 136 mmol/L (135-145); Total Protein 5.9 g/dl (6.3-8.2)
== END ==
LOC: OLABP 10:30
PROVIDERS: ATTENDING PHYSICIAN Family Medicine
DX: I10 Essential (primary) hypertension (principal); N39.0 Urinary tract infection, site not specified; N17.9 Acute kidney failure, unspecified; E86.0 Dehydration; I87.2 Venous insufficiency (chronic) (peripheral)
CPT/HCPCS: 36415; 80053; 85025; 85610

== ENCOUNTER → 2024-10-08 13:53 | Outpatient (REF) | payer OTHER, MEDICARE, SELFPAY ==
[2024-10-08 14:35] LABS: Hematocrit 36.9 % (37.0-47.0); Mean Corp Hgb Conc. 32.5 g/dL (33.0-37.0); Mean Corpuscular Hgb 31.3 pg (27.0-31.0); Mean Corpuscular Volume 96.1 fL (81.0-99.0); Platelet Count 71 10^3/uL (130-400); Red Blood Cell Count 3.84 10^6/uL (4.20-5.40); Red Cell Dist. Width 18.1 % (11.5-14.5); White Blood Cell Count 4.4 10^3/uL (4.8-10.8)
[2024-10-08 17:04] LABS: ALT (SGPT) 26 U/L (0-35); AST (SGOT) 80 U/L (14-36); Albumin 4.2 g/dl (3.5-5.0); Alkaline Phosphatase 298 U/L (38-126); Blood Urea Nitrogen 46 mg/dl (7-17); Calcium 9.3 mg/dl (8.4-10.2); Carbon Dioxide 20 mmol/L (22-30); Chloride 101 mmol/L (98-107); Glucose 172 mg/dl (70-99); Potassium 5.4 mmol/L (3.5-5.1); Sodium 134 mmol/L (135-145); Total Bilirubin 2.7 mg/dl (0.2-1.3); Total Protein 6.9 g/dl (6.3-8.2)
== END ==
LOC: OLABPV 13:53
DX: I10 Essential (primary) hypertension (principal); N39.0 Urinary tract infection, site not specified; N17.9 Acute kidney failure, unspecified; E86.0 Dehydration
CPT/HCPCS: 80053; 85027

== ENCOUNTER → 2024-10-09 09:15 | Outpatient (REF) | payer MEDICARE, OTHER, SELFPAY ==
[2024-10-09 09:57] LABS: Ammonia 53 umol/L (9-30)
[2024-10-09 12:55] LABS: Urine Albumin 2+ (Neg - Trace); Urine Bilirubin Negative (Negative); Urine Character Clear (Clear); Urine Color Yellow; Urine Glucose Negative (Negative); Urine Ketone Negative (Negative); Urine Leukocyte Negative (Negative); Urine Nitrite Negative (Negative); Urine Occult Blood Negative (Negative); Urine Specific Gravity 1.005 (<1.030); Urine Urobilinogen Negative (Neg - 1+)
[2024-10-09 14:30] LABS: Urine Red Blood Cell 0-2 /HPF (0-2); Urine Squamous Cell 0-2 /LPF (Few)
== END ==
LOC: OLABP 09:15
DX: I10 Essential (primary) hypertension (principal); N39.0 Urinary tract infection, site not specified; N17.9 Acute kidney failure, unspecified; E86.0 Dehydration
CPT/HCPCS: 36415; 81003; 81015; 82140; 87077; 87086; 87186

== ENCOUNTER → 2024-10-10 09:32 | Outpatient (REF) | payer MEDICARE, OTHER, SELFPAY ==
[2024-10-10 11:27] LABS: INR 4.11; PT 39.4 Sec (11.4-14.6)
== END ==
LOC: OLABP 09:32
PROVIDERS: ATTENDING PHYSICIAN Family Medicine
DX: I10 Essential (primary) hypertension (principal); N39.0 Urinary tract infection, site not specified; N17.9 Acute kidney failure, unspecified; E86.0 Dehydration
CPT/HCPCS: 85610